=== PATIENT | female | born 1950 | race Caucasian/White ===

== ENCOUNTER 2019-11-23 22:26 | Emergency (ER) | payer MEDICARE, SELFPAY ==
[2019-11-23 22:34] VITALS: BP 186/110; PULSE 88; RESP 18; TEMP 36.7; O2SAT 98; BMI 27.0
[2019-11-24] VITALS (7 sets, daily range): BP systolic 118–178; BP diastolic 89–125; PULSE 78–107; RESP 17–24; O2SAT 93–97
--- NOTE | 2019-11-24 00:14 | ED_ITS ---
Entered by Chaparrita Ferrell, acting as scribe for Srikanth Sheldon DO Nov 23, 2019 22:26 HPI - Abdominal Pain General: Chief Complaint: Abdominal Pain Stated Complaint: sob Time Seen by Provider: 11/24/19 00:15 Source: patient Mode of arrival: ambulatory Limitations: no limitations History of Present Illness: HPI narrative: 69 yo f came to the er p[facility] for abd pain. Onset was today. Pt states that she woke up this morning with her stomach hurting. Pt states that she took her usual meds and then it got worse. Pt has had some diarrhea, nausea and vomiting. MD elicited complaint: abdominal pain Location: RLQ and LLQ Associated Symptoms: Reports diarrhea, nausea and vomiting; Denies chills, dysuria, fever(s), hematochezia, hematuria and melena Review of Systems Const: Denies: fever or chills Eyes: Denies: change in vision or blurry vision ENMT: Denies: painful swallowing, Change in hearing, nose bleeds, post nasal drip or facial/sinus pain Card: Denies: chest pain, palpitations, irregular heart rhythm, edema, swelling of feet/ankles, shortness of breath on exertion or shortness of breath when lying down Resp: Denies: shortness of breath, productive cough, non-productive cough or wheezing GI: Reports: nausea, vomiting and diarrhea; Denies: blood in stool or black tarry stool : Denies: painful urination or blood in urine Musc: Denies: neck pain, back pain, redness or joint warmth Skin/Breast: Denies: rash, itching or redness Neuro: Denies: headache, dizziness, vertigo, confusion or seizure-like activity Psych: Denies: anxiety, visual hallucinations or auditory hallucinations PFSH ED PFSH: Statuses (acute, chronic, etc) shown below reflect problem list status as previously entered and may not be historically accurate Family History Mother Diabetes Father Heart disease Social History Smoking and tobacco status: former smoker Alcohol intake: current Lives independently: Yes Household members: spouse Marital status: Current occupational status: retired Physical Exam Const: COMMON NORMALS: alert GENERAL APPEARANCE: well developed ORIENTATION/CONSCIOUSNESS: Yes awake, Yes oriented to person, Yes oriented to place and Yes oriented to time HENMT: COMMON NORMALS: normocephalic, external ears normal and external nose normal; oral mucous membranes not moist HEAD & SCALP: normocephalic; no scalp tenderness FACE & SINUS: normal facial exam NOSE: external nose normal and no nasal discharge EXTERNAL EAR: Yes external ears normal MOUTH: tongue normal TEETH & GINGIVA: no abnormal tooth and associated gingiva THROAT: posterior oropharynx normal; no peritonsillar mass Eye: COMMON NORMALS: PERRL, EOMs intact bilaterally and conjunctivae normal EYELID: eyelids normal CONJUNCTIVA: Yes conjunctivae normal PUPIL: Yes PERRL Neck/C-Spine: COMMON NORMALS: full ROM GENERAL: No anterior neck swelling and No tracheal deviation CERVICAL SPINE: Yes normal cervical lordosis, No cervical spine tenderness, No step off deformity, No paracervical muscle tenderness and No paracervical muscle spasm Chest: COMMONS NORMALS: inspection of chest normal CHEST: Yes symmetrical chest wall rise and No tenderness Resp: COMMON NORMALS: clear to auscultation bilaterally EFFORT & INSPECTION: No tachypneic, No respiratory distress, No retractions, No uses accessory muscles and No tracheal deviation AUSCULTATION: clear to auscultation bilaterally, no rhonchi, no wheezes and lung sounds not diminished Cardio: COMMON NORMALS: regular rate and regular rhythm RATE: regular rate RHYTHM: regular rhythm HEART SOUNDS: no murmurs PERIPHERAL PULSES: radial pulses present GI: INSPECTION: No abdominal distension AUSCULTATION: No hyperactive bowel sounds and No hypoactive bowel sounds PALPATION: Yes tender, Yes guarding and No rigid PERCUSSION: no dullness to percussion and no tympanic to percussion : COMMON NORMALS: Yes no CVA tenderness BLADDER/KIDNEY EXAM: Yes no CVA tenderness Back/Pelvis: COMMON NORMALS: no CVA tenderness PELVIS: Yes no pain with anterior-posterior compression and Yes no pain with lateral compression Neuro: SENSORIUM/ORIENTATION: Yes alert, Yes oriented to person, Yes oriented to place and Yes oriented to time Psych: COMMON NORMALS: mental status grossly normal and speech normal SPEECH: Yes normal speech Skin: COMMON NORMALS: no rashes or lesions noted GENERAL SKIN EXAM: no rashes or lesions noted Course Vital Signs: Vital signs: Vital Signs Temperature 98.0 F 11/23/19 22:34 Pulse Rate 107 H 11/24/19 02:16 Respiratory Rate 19 H 11/24/19 02:45 Blood Pressure 178/116 11/24/19 02:16 Pulse Oximetry 96 11/24/19 02:16 MDM - Abdominal Pain Lab Data: Labs: Lab Results 11/24/19 11/24/19 11/24/19 Range/Units 00:33 00:33 02:15 WBC 17.0 H (4.0-10.0) 10^3/ uL RBC 4.70 (4.1-5.3) 10^6/u L Hgb 13.2 (11.5-15.3) g/dL Hct 39.7 (37.0-47.0) % MCV 84.5 (81-99) fL MCH 28.1 (28.0-34.0) pg MCHC 33.2 (30.0-36.0) g/dL RDW 14.6 (12.1-15.1) % Plt Count 421 H (130-400) 10^3/c mm MPV 9.7 (7.4-10.4) fL Neut % (Auto) 82.8 % Lymph % (Auto) 13.6 % [place] % (Auto) 3.0 % Eos % (Auto) 0.0 % Baso % (Auto) 0.2 % Neut # (Auto) 14.1 H (1.8-7.7) 10^3/u L Lymph # (Auto) 2.3 (0.8-4.8) 10^3/u L [place] # (Auto) 0.5 (0.2-0.9) 10^3/u L Eos # (Auto) 0.0 (0.0-0.8) 10^3/u L Baso # (Auto) 0.0 (0.0-0.1) 10^3/u L Nucleated RBC % (a uto) 0 % Nucleated RBCs # 0.0 /100WBC Sodium 137 (136-145) mmol/L Potassium 3.4 L (3.5-5.1) mmol/L Chloride 99 (98-107) mmol/L Carbon Dioxide 23 (22-29) mmol/L Anion Gap 18.4 (5-19) BUN 12 (8-23) mg/dL Creatinine 0.8 (0.5-0.9) mg/dL GFR Calculation 71.5 L (90-130) mL/min Glucose 186 H (74-106) mg/dL Calcium 10.6 H (8.8-10.2) mg/Dl Total Bilirubin 0.5 (0.15-1.2) mg/dL AST 14 (0-32) U/L ALT 6 (0-33) U/L Alkaline Phosphata se 102 (35-105) IU/L C-Reactive Protein 2.8 (0.0-4.9) mg/L Total Protein 7.9 (6.6-8.7) g/dL Albumin 4.6 (3.5-5.2) g/dL Globulin 3.3 (1.3-4.6) g/dL Urine Color Yellow (Yellow) Urine Appearance Hazy A (CLEAR) Urine pH 9 H (5-7) Ur Specific Gravit y 1.010 (1.005-1.030) Urine Protein 1+ H (Negative) Urine Glucose (UA) Trace H (Normal) Urine Ketones 1+ H (Negative) Urine Occult Blood 2+ H (Negative) Urine Nitrate Negative (Negative) Urine Bilirubin Neg (NEGATIVE) Prot Sulfosalicyli c Acd Trace Urine Urobilinogen Norm (Negative) mg/dL Ur Leukocyte Ami ase Negative (Negative) Urine RBC 5-10 H (0-2) /hpf Urine WBC None (0-5) /hpf Ur Squamous Epith Cells 5-10 H (0-5) Urine Bacteria 1+ H (NONE) Discharge Plan Discharge Patient Disposition: Home, Self-Care Clinical Impression: Abdominal pain Qualifiers: Abdominal location: left upper quadrant Qualified Code(s): R10.12 - Left upper quadrant pain Condition: Stable Prescriptions: New Zofran 4 mg tablet 4 mg PO Q6H PRN (Reason: nausea and vomiting) Qty: 10 RF: 0 No Action sucralfate [Carafate] 1 gram tablet 1 gm PO QID RF: 0 lisinopril 10 mg tablet 10 mg PO DAILY RF: 0 methimazole 10 mg tablet 10 mg PO DAILY RF: 0 atenolol 50 mg tablet 50 mg PO DAILY RF: 0 sumatriptan succinate [Imitrex] 50 mg tablet 50 mg PO ONCE RF: 0 polyethylene glycol 3350 [Miralax] 17 gram powder in packet 17 gm PO DAILY RF: 0 clopidogrel 75 mg tablet 75 mg PO ONCE RF: 0 pantoprazole [Protonix] 40 mg tablet,delayed release (DR/EC) 40 mg PO QAM RF: 0 ondansetron HCl 4 mg tablet 4 mg PO Q6H PRN (Reason: nausea and vomiting) RF: 0 hydrocodone-acetaminophen 10-325 mg tablet 1 tab PO ONCE PRNRF: 0 aspirin [Adult Low Dose Aspirin] 81 mg tablet,delayed release (DR/EC) 81 mg PO DAILY RF: 0 cyanocobalamin (vitamin B-12) 1,000 mcg capsule 1,000 mcg PO ONCE RF: 0 Probiotic (S.boulardii) 250 mg capsule 250 mg PO BID RF: 0 Discharge Orders: Discharge Order (Routine); Ordered 11/24/19 Ordered By: Srikanth Sheldon Referrals: Maria Gomez APN [Primary Care Provider] - Discharge Diet: Advance as tolerated Discharge Activity: Resume usual activity Patient Instructions: Abdominal Pain (ED) Activity Restrictions/Additional Instructions: Return for fever greater than 100, vomiting liquids or medications, other concerning symptoms. Coding Level of Care Code ED Plant Supervisor for Chg Fwd The documentation recorded by the Ghassan berry Stephanie Lyn, accurately reflects the service I personally performed and the decisions made by Pito kahn Jeremy John, DO Nov 23, 2019 22:26
--- NOTE | 2019-11-24 00:21 | CTR_ITS ---
PROCEDURE INFORMATION: Exam: CT Abdomen And Pelvis With Contrast Exam date and time: 11/24/2019 12:38 AM Age: 69 years old Clinical indication: Abdominal pain; Generalized; Prior surgery; Surgery date: 6+ months; Surgery type: Splenectomy; Additional info: Abd pain TECHNIQUE: Imaging protocol: Computed tomography of the abdomen and pelvis with intravenous contrast. Total DLP: 566.69 mGy-cm Radiation optimization: All CT scans at this facility use at least one of these dose optimization techniques: automated exposure control; mA and/or kV adjustment per patient size (includes targeted exams where dose is matched to clinical indication); or iterative reconstruction. Contrast material: OMNI 300; Contrast volume: 95 ml; Contrast route: IV; COMPARISON: CT Abdomen/Pelvis w IV* [id number] 10/17/2019 10:42 PM FINDINGS: Lungs: Lung bases are clear. Mediastinum: There is a small sliding-type hiatal hernia. Liver: The liver is normal. Gallbladder and bile ducts: The gallbladder is normal. There is no biliary dilation. Pancreas: The pancreas is unremarkable. 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 Adrenals: The adrenal glands are unremarkable. Kidneys and ureters: The kidneys are unremarkable. No hydronephrosis or stones. No ureteral dilation. Stomach and bowel: The stomach is unremarkable. The small bowel is nondilated. There is no sign of inflammation. The colon is diffusely decompressed. There is mild diverticulosis of the sigmoid without evidence of diverticulitis. Appendix: The appendix is normal. Intraperitoneal space: There is no free air or significant intraperitoneal free fluid. Vasculature: There is moderate aortic atherosclerotic disease. There is no aortic dissection or aneurysm. Lymph nodes: There is no lymphadenopathy in the retroperitoneum, mesentery, pelvis or inguinal regions. Bladder: The urinary bladder is unremarkable. Reproductive: The uterus is unremarkable. There is no adnexal mass or large cyst. Bones/joints: There is moderate degenerative disease in the lumbar spine. The pelvis and hips are unremarkable. Soft tissues: There is a small multifocal fat containing ventral hernia. CT/CT abdomen pelvis w con* [id number] IMPRESSION: 1. No acute findings. 2. Incidental findings above. Radiation Dose CTDIVOL = (mGy): DLP = 566.69 (mGy-cm)
[2019-11-24 00:52] LABS: Basophils % 0.2 %; Hematocrit 39.7 % (37.0-47.0); Hemoglobin 13.2 g/dL (11.5-15.3); Lymphocytes # 2.3 10^3/uL (0.8-4.8); Lymphocytes % 13.6 %; Mean Corpuscular HGB Conc 33.2 g/dL (30.0-36.0); Mean Corpuscular Hemoglobin 28.1 pg (28.0-34.0); Mean Corpuscular Volume 84.5 fL (81-99); Mean Platelet Volume 9.7 fL (7.4-10.4); Monocytes # 0.5 10^3/uL (0.2-0.9); Neutrophils # 14.1 10^3/uL (1.8-7.7); Neutrophils % 82.8 %; Nucleated Red Blood Cells % 0 %; Platelet Count 421 10^3/cmm (130-400); Red Cell Distribution Width 14.6 % (12.1-15.1)
[2019-11-24 01:00] LABS: Alanine Aminotransferase 6 U/L (0-33); Albumin Level 4.6 g/dL (3.5-5.2); Alkaline Phosphatase 102 IU/L (35-105); Anion Gap 18.4 (5-19); Aspartate Amino Transferase 14 U/L (0-32); Blood Urea Nitrogen 12 mg/dL (8-23); C Reactive Protein 2.8 mg/L (0.0-4.9); Calcium 10.6 mg/Dl (8.8-10.2); Carbon Dioxide 23 mmol/L (22-29); Chloride 99 mmol/L (98-107); Globulin 3.3 g/dL (1.3-4.6); Glomerular Filtration Rate 71.5 mL/min (90-130); Glucose 186 mg/dL (74-106); Potassium 3.4 mmol/L (3.5-5.1); Sodium 137 mmol/L (136-145); Total Bilirubin 0.5 mg/dL (0.15-1.2); Total Protein 7.9 g/dL (6.6-8.7)
[2019-11-24] MEDS: ondansetron 2 mg/ML SDV 2 mL 4 MG IVP (01:23)
[2019-11-24 02:45] LABS: Bilirubin Urine Neg (NEGATIVE); Blood Urine 2+ (Negative); Glucose Urine UA Trace (Normal); Ketones Urine 1+ (Negative); Leukocyte Esterase Urine Negative (Negative); Nitrate Urine Negative (Negative); Protein Urine 1+ (Negative); Urine Appearance Hazy (CLEAR); Urine Color Yellow (Yellow); Urobilinogen Urine Norm (Negative); pH Urine 9 (5-7)
[2019-11-24] MEDS: morphine 4 mg/mL SDV 1 mL IVP (02:45)
[2019-11-24 02:46] LABS: Sulfosalicylic Acid Urine Trace
[2019-11-24 02:50] LABS: Bacteria Urine 1+
--- NOTE | 2019-11-24 06:31 | PC.NURSE ---
Contacted after multiple attempts to reach him on home phone. 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 home phone number to contact is [phone].
--- NOTE | 2019-11-24 06:54 | PC.NURSE ---
Report received from RENUKA Bernal
== END 2019-11-24 07:10 | disposition home or self-care (01) ==
PROVIDERS: Emergency Provider Emergency Medicine; Family Provider Nurse Practitioner Family; PCP Nurse Practitioner Family
DX: R10.12 Left upper quadrant pain (principal); Z87.891 Personal history of nicotine dependence
CPT/HCPCS: 74177; 80053; 81001; 85025; 86140; 96365; 96366; 96374; 99282; J0131; J2270; J2405; Q9967

== ENCOUNTER 2019-12-30 04:53 | Inpatient (IN) | payer MEDICARE, SELFPAY ==
[2019-12-30] VITALS (16 sets, daily range): BP systolic 89–152; BP diastolic 48–84; PULSE 50–91; RESP 14–20; TEMP 36.4–37.2; O2SAT 82–100; BMI 27.3
--- NOTE | 2019-12-30 05:10 | PC.NURSE ---
patient states her abdominal pain started monday and has become progressively worse. Patient states she has been vomiting since monday. Patient states her pain is centrally located in her abdomen.
--- NOTE | 2019-12-30 05:13 | W.ED.ABDPA2 ---
Documented by User: Srikanth Sheldon DO 12/30/19 06:51 HPI - Abdominal Pain General: Chief Complaint: Abdominal Pain Stated Complaint: ABD PAIN Time Seen by Provider: 12/30/19 05:06 History of Present Illness: MD elicited complaint: abdominal pain Onset (ago): day(s) Pain Consistency: intermittent Location: Epigastric Severity: similar to previous episodes Quality: stabbing and sharp Radiation: none Exacerbating factors: vomiting Relieving factors: nothing Associated Symptoms: Reports chills, nausea and vomiting; Denies dysuria, fever(s) and hematemesis Review of Systems Const: Reports: chills; Denies: fever Eyes: Denies: change in vision ENMT: Reports: dry mouth; Denies: throat pain Card: Denies: chest pain, palpitations or edema Resp: Denies: shortness of breath, productive cough or wheezing GI: Reports: nausea and vomiting; Denies: vomiting blood : Denies: difficulty urinating or painful urination Neuro: Reports: dizziness; Denies: headache Psych: Reports: anxiety PFSH ED PFSH: Statuses (acute, chronic, etc) shown below reflect problem list status as previously entered and may not be historically accurate Medical History Anxiety disorder (Acute) Basilar artery aneurysm (Acute) Constipation (Acute) Dyslipidemia (Acute) Elevated glucose (Acute) Gastritis (Acute) Hemorrhoid (Acute) Hypertension (Acute) Continue on atenolol, hold lisinopril until seen by primary care provider Hyperthyroidism (Acute) Continue on home methimazole Insomnia (Acute) Migraine (Acute) Plantar fasciitis (Acute) Statin intolerance (Acute) Surgical History H/O section (Acute) H/O splenectomy (Acute) 2007 History of esophagogastroduodenoscopy (EGD) (Acute) 2019 -gastritis S/P coil embolization of cerebral aneurysm (Acute) 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, stent subsequently removed Status post colonoscopy (Acute) 2018: Normal repeat in 10 years Family History Mother Diabetes Father Heart disease Denies family history of Anesthesia complication Bleeding disorder Social History Smoking and tobacco status: former smoker Alcohol intake: current Alcohol intake frequency: holidays/special occasions only Lives independently: Yes Household members: spouse Marital status: Current occupational status: retired Physical Exam Const: COMMON NORMALS: alert GENERAL APPEARANCE: in distress and anxious ORIENTATION/CONSCIOUSNESS: Yes oriented to person, Yes oriented to place and Yes oriented to time HENMT: COMMON NORMALS: external nose normal FACE & SINUS: normal facial exam NOSE: external nose normal MOUTH: oral and palatal mucosa normal THROAT: posterior oropharynx abnormal erythema Eye: COMMON NORMALS: PERRL and EOMs intact bilaterally PUPIL: Yes PERRL Chest: COMMONS NORMALS: inspection of chest normal Resp: COMMON NORMALS: normal respiratory effort, no retractions, no use of accessory muscles and clear to auscultation bilaterally AUSCULTATION: clear to auscultation bilaterally Cardio: COMMON NORMALS: regular rhythm RHYTHM: regular rhythm and abnormal rhythm HEART SOUNDS: no murmurs PERIPHERAL PULSES: radial pulses present GI: INSPECTION: Yes normal to inspection AUSCULTATION: Yes normoactive bowel sounds PALPATION: Yes tender Details: LUQ and RUQ and Yes guarding Neuro: SENSORIUM/ORIENTATION: Yes alert, Yes oriented to person, Yes oriented to place and Yes oriented to time SPEECH: speech normal Course Vital Signs: Vital signs: Vital Signs Temperature 99.0 F 12/31/19 15:45 Pulse Rate 65 12/31/19 15:45 Respiratory Rate 18 12/31/19 15:45 Blood Pressure 162/83 12/31/19 15:45 Pulse Oximetry 94 12/31/19 15:45 MDM - Abdominal Pain MDM Narrative: Medical decision making narrative: 69-year-old female here not infrequently. She presents with epigastric and left upper quadrant pain and vomiting. She has been vomiting she says for the last few days. No fever, no diarrhea. Improved after medication here. She has a leukocytosis of 19 without significant left shift. Her potassium is 3.1. Her BUN 27 creatinine 1.3. Because of significant elevation white blood cell count, despite the fact this is more chronic problem, we will have to CT her belly. CT is pending at this point. Lab Data: Labs: Lab Results 12/30/19 12/30/19 12/30/19 Range/Units 05:38 05:38 05:38 WBC 18.8 H (4.0-10.0) 10^3/ uL RBC 5.33 H (4.1-5.3) 10^6/u L Hgb 14.5 (11.5-15.3) g/dL Hct 42.9 (37.0-47.0) % MCV 80.5 L (81-99) fL MCH 27.2 L (28.0-34.0) pg MCHC 33.8 (30.0-36.0) g/dL RDW 15.3 H (12.1-15.1) % Plt Count 510 H (130-400) 10^3/c mm MPV 9.6 (7.4-10.4) fL Neut % (Auto) 71.5 % Lymph % (Auto) 22.6 % [place] % (Auto) 5.2 % Eos % (Auto) 0.0 % Baso % (Auto) 0.2 % Neut # (Auto) 13.5 H (1.8-7.7) 10^3/u L Lymph # (Auto) 4.2 (0.8-4.8) 10^3/u L [place] # (Auto) 1.0 H (0.2-0.9) 10^3/u L Eos # (Auto) 0.0 (0.0-0.8) 10^3/u L Baso # (Auto) 0.0 (0.0-0.1) 10^3/u L Nucleated RBC % (a uto) 0 % Nucleated RBCs # 0.0 /100WBC Sodium 135 L (136-145) mmol/L Potassium 3.1 L (3.5-5.1) mmol/L Chloride 87 L (98-107) mmol/L Carbon Dioxide 25 (22-29) mmol/L Anion Gap 26.1 H (5-19) BUN 27 H (8-23) mg/dL Creatinine 1.3 H (0.5-0.9) mg/dL GFR Calculation 40.9 L (90-130) mL/min Glucose 160 H (65-115) mg/dL Estimat Average Gl ucose Hemoglobin A1c (4.0-6.0) % Lactate (0.5-2.2) mmol/L Calcium 10.6 H (8.5-10.5) mg/dL Total Bilirubin 1.0 (0.15-1.2) mg/dL AST 22 (0-32) U/L ALT 10 (0-33) U/L Alkaline Phosphata se 94 (35-105) IU/L C-Reactive Protein 2.3 (0.0-4.9) mg/L Total Protein 7.6 (6.6-8.7) g/dL Albumin 4.3 (3.5-5.2) g/dL Globulin 3.3 (1.3-4.6) g/dL Lipase 19 (13-60) U/L TSH (0.27-4.20) uIU/ mL Urine Color Yellow (Yellow) Urine Appearance Cloudy (CLEAR) Urine pH 5 (5-7) Ur Specific Gravit y 1.020 (1.005-1.030) Urine Protein 2+ H (Negative) Urine Glucose (UA) Norm (Normal) Urine Ketones 1+ H (Negative) Urine Occult Blood 2+ H (Negative) Urine Nitrate Negative (Negative) Urine Bilirubin 1+ H (NEGATIVE) Urine Urobilinogen Norm (Negative) mg/dL Ur Leukocyte Ami ase Negative (Negative) Urine RBC 0-4 H (0-2) /hpf Urine WBC 5-10 H (0-5) /hpf Ur Squamous Epith Cells 15-25 H (0-5) Urine Bacteria 1+ H (NONE) Urine Mucus 2+ 12/30/19 12/30/19 12/30/19 Range/Units 05:38 05:38 07:18 WBC (4.0-10.0) 10^3/ uL RBC (4.1-5.3) 10^6/u L Hgb (11.5-15.3) g/dL Hct (37.0-47.0) % MCV (81-99) fL MCH (28.0-34.0) pg MCHC (30.0-36.0) g/dL RDW (12.1-15.1) % Plt Count (130-400) 10^3/c mm MPV (7.4-10.4) fL Neut % (Auto) % Lymph % (Auto) % [place] % (Auto) % Eos % (Auto) % Baso % (Auto) % Neut # (Auto) (1.8-7.7) 10^3/u L Lymph # (Auto) (0.8-4.8) 10^3/u L [place] # (Auto) (0.2-0.9) 10^3/u L Eos # (Auto) (0.0-0.8) 10^3/u L Baso # (Auto) (0.0-0.1) 10^3/u L Nucleated RBC % (a uto) % Nucleated RBCs # /100WBC Sodium (136-145) mmol/L Potassium (3.5-5.1) mmol/L Chloride (98-107) mmol/L Carbon Dioxide (22-29) mmol/L Anion Gap (5-19) BUN (8-23) mg/dL Creatinine (0.5-0.9) mg/dL GFR Calculation (90-130) mL/min Glucose (65-115) mg/dL Estimat Average Gl ucose 131 Hemoglobin A1c 6.2 H (4.0-6.0) % Lactate 1.4 (0.5-2.2) mmol/L Calcium (8.5-10.5) mg/dL Total Bilirubin (0.15-1.2) mg/dL AST (0-32) U/L ALT (0-33) U/L Alkaline Phosphata se (35-105) IU/L C-Reactive Protein (0.0-4.9) mg/L Total Protein (6.6-8.7) g/dL Albumin (3.5-5.2) g/dL Globulin (1.3-4.6) g/dL Lipase (13-60) U/L TSH 1.91 (0.27-4.20) uIU/ mL Urine Color (Yellow) Urine Appearance (CLEAR) Urine pH (5-7) Ur Specific Gravit y (1.005-1.030) Urine Protein (Negative) Urine Glucose (UA) (Normal) Urine Ketones (Negative) Urine Occult Blood (Negative) Urine Nitrate (Negative) Urine Bilirubin (NEGATIVE) Urine Urobilinogen (Negative) mg/dL Ur Leukocyte Ami ase (Negative) Urine RBC (0-2) /hpf Urine WBC (0-5) /hpf Ur Squamous Epith Cells (0-5) Urine Bacteria (NONE) Urine Mucus Discharge Plan Discharge Patient Disposition: Admitted As Inpatient Admit Provider: Bela Duggan Clinical Impression: Small bowel obstruction Condition: Stable Discharge Orders: Discharge Order (Routine); Ordered 12/31/19 Ordered By: Bela Duggan Referrals: Davy Medina MD [Physician] - (As previously scheduled please call for appointment [phone]) Discharge Diet: Advance as tolerated and GI Soft Discharge Activity: Increase activity as tolerated Patient Instructions: Laxative, Stimulant (By mouth), Hypertension, Acute Nausea and Vomiting (DC), Bowel Obstruction (DC) Additional Instructions: Follow-up with primary care provider in 3 to 5 days Started on stool softener to take twice daily Follow-up with Dr. Medina or Dr. Lin as previously scheduled or as needed Call your physician or present to the ER for any acute illness or concern Discharge Date/Time: 12/30/19 15:16 Sign Out Sign Out Data: Patient Sign Out occurred on 12/30/19 at 07:09. Patient's care was discussed, and care was transferred from Srikanth Sheldon DO to Jayden Otero DO. Sign Out Comment: Follow-up on CT findings for persistent epigastric pain and leukocytosis Last updated by Srikanth Sheldon DO at 12/30/19 06:49 Coding Level of Care Code ED Supervisor [facility] for [facility] Fwd Documented by User: Jayden Otero DO 01/02/20 05:56 HPI - Abdominal Pain General: Chief Complaint: Abdominal Pain Stated Complaint: ABD PAIN Time Seen by Provider: 12/30/19 05:06 History of Present Illness: HPI narrative: 69-year-old female presents with epigastric abdominal pain with significant nausea few episodes of vomiting no hematochezia no melena. She denies fever this is been going on and off for the last 2 to 3 days she has not eaten well over 24 hours anything she eats or drinks causes severe discomfort and nausea. Associated Symptoms: Reports bloating, GI cramping, nausea and vomiting; Denies chills, coffee ground emesis, constipation, diarrhea, dysuria, fever(s), hematochezia, hematemesis and melena Review of Systems Const: Denies: fever, chills, body aches, change in appetite, fatigue or malaise ENMT: Denies: throat pain, ear pain, nasal discharge or nasal congestion Card: Denies: chest pain, edema, shortness of breath on exertion or shortness of breath when lying down Resp: Denies: shortness of breath, productive cough or non-productive cough GI: Reports: abdominal pain, nausea, vomiting, bloating and cramping; Denies: vomiting blood, coffee grounds in vomit, diarrhea, constipation, blood in stool or black tarry stool : Denies: flank pain, difficulty urinating, painful urination, urinary frequency or urinary urgency Skin/Breast: Denies: rash or itching PFSH ED PFSH: Statuses (acute, chronic, etc) shown below reflect problem list status as previously entered and may not be historically accurate Medical History Anxiety disorder (Acute) Basilar artery aneurysm (Acute) Constipation (Acute) Dyslipidemia (Acute) Elevated glucose (Acute) Gastritis (Acute) Hemorrhoid (Acute) Hypertension (Acute) Continue on atenolol, hold lisinopril until seen by primary care provider Hyperthyroidism (Acute) Continue on home methimazole Insomnia (Acute) Migraine (Acute) Plantar fasciitis (Acute) Statin intolerance (Acute) Surgical History H/O section (Acute) H/O splenectomy (Acute) 2007 History of esophagogastroduodenoscopy (EGD) (Acute) 2019 -gastritis S/P coil embolization of cerebral aneurysm (Acute) 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, stent subsequently removed Status post colonoscopy (Acute) 2018: Normal repeat in 10 years Family History Mother Diabetes Father Heart disease Denies family history of Anesthesia complication Bleeding disorder Social History Smoking and tobacco status: former smoker Alcohol intake: current Alcohol intake frequency: holidays/special occasions only Lives independently: Yes Household members: spouse Marital status: Current occupational status: retired Physical Exam Const: COMMON NORMALS: no apparent distress GENERAL APPEARANCE: cooperative and comfortable ORIENTATION/CONSCIOUSNESS: Yes awake, Yes oriented to person, Yes oriented to place and Yes oriented to time HENMT: COMMON NORMALS: normocephalic, head/scalp atraumatic, hearing grossly normal bilaterally, external ears normal, EAC's normal, TM's normal bilaterally, nasal mucous membranes and turbinates normal, moist oral mucous membranes and oropharynx normal HEAD & SCALP: normocephalic and atraumatic NOSE: nasal mucous membranes and turbinates normal EXTERNAL EAR: Yes external ears normal EXTERNAL AUDITORY CANAL: EAC's normal TYMPANIC MEMBRANE: TM's normal bilaterally Eye: COMMON NORMALS: PERRL, EOMs intact bilaterally, conjunctivae normal and no scleral icterus CONJUNCTIVA: Yes conjunctivae normal PUPIL: Yes PERRL Neck/C-Spine: COMMON NORMALS: full ROM, no lymphadenopathy, supple and no JVD Lymph: LYMPHATIC: no lymphadenopathy noted and no lymphedema noted Resp: COMMON NORMALS: normal respiratory effort, no retractions, no use of accessory muscles and clear to auscultation bilaterally AUSCULTATION: clear to auscultation bilaterally Cardio: COMMON NORMALS: no JVD, regular rate, regular rhythm and no murmurs RATE: regular rate RHYTHM: regular rhythm GI: COMMON NORMALS: no hepatosplenomegaly AUSCULTATION: Yes normoactive bowel sounds PALPATION: Yes tender (Epigastrium), No guarding and Yes no hepatosplenomegaly Extremity: COMMON NORMALS: normal to inspection, normal capillary refill, no clubbing, cyanosis or edema, no calf tenderness and no pedal edema Neuro: SENSORIUM/ORIENTATION: Yes oriented to person, Yes oriented to place and Yes oriented to time Skin: COMMON NORMALS: no rashes or lesions noted GENERAL SKIN EXAM: no rashes or lesions noted Course ED course: CT shows proximal small bowel obstruction with transition in the ileum. Will place NG tube discussed with hospitalist will admit. Consult general surgery Vital Signs: Vital signs: Vital Signs Temperature 99.0 F 12/31/19 15:45 Pulse Rate 65 12/31/19 15:45 Respiratory Rate 18 12/31/19 15:45 Blood Pressure 162/83 12/31/19 15:45 Pulse Oximetry 94 12/31/19 15:45 MDM - Abdominal Pain Lab Data: Labs: Lab Results 12/30/19 12/30/19 12/30/19 Range/Units 05:38 05:38 05:38 WBC 18.8 H (4.0-10.0) 10^3/ uL RBC 5.33 H (4.1-5.3) 10^6/u L Hgb 14.5 (11.5-15.3) g/dL Hct 42.9 (37.0-47.0) % MCV 80.5 L (81-99) fL MCH 27.2 L (28.0-34.0) pg MCHC 33.8 (30.0-36.0) g/dL RDW 15.3 H (12.1-15.1) % Plt Count 510 H (130-400) 10^3/c mm MPV 9.6 (7.4-10.4) fL Neut % (Auto) 71.5 % Lymph % (Auto) 22.6 % [place] % (Auto) 5.2 % Eos % (Auto) 0.0 % Baso % (Auto) 0.2 % Neut # (Auto) 13.5 H (1.8-7.7) 10^3/u L Lymph # (Auto) 4.2 (0.8-4.8) 10^3/u L [place] # (Auto) 1.0 H (0.2-0.9) 10^3/u L Eos # (Auto) 0.0 (0.0-0.8) 10^3/u L Baso # (Auto) 0.0 (0.0-0.1) 10^3/u L Nucleated RBC % (a uto) 0 % Nucleated RBCs # 0.0 /100WBC Sodium 135 L (136-145) mmol/L Potassium 3.1 L (3.5-5.1) mmol/L Chloride 87 L (98-107) mmol/L Carbon Dioxide 25 (22-29) mmol/L Anion Gap 26.1 H (5-19) BUN 27 H (8-23) mg/dL Creatinine 1.3 H (0.5-0.9) mg/dL GFR Calculation 40.9 L (90-130) mL/min Glucose 160 H (65-115) mg/dL Estimat Average Gl ucose Hemoglobin A1c (4.0-6.0) % Lactate (0.5-2.2) mmol/L Calcium 10.6 H (8.5-10.5) mg/dL Total Bilirubin 1.0 (0.15-1.2) mg/dL AST 22 (0-32) U/L ALT 10 (0-33) U/L Alkaline Phosphata se 94 (35-105) IU/L C-Reactive Protein 2.3 (0.0-4.9) mg/L Total Protein 7.6 (6.6-8.7) g/dL Albumin 4.3 (3.5-5.2) g/dL Globulin 3.3 (1.3-4.6) g/dL Lipase 19 (13-60) U/L TSH (0.27-4.20) uIU/ mL Urine Color Yellow (Yellow) Urine Appearance Cloudy (CLEAR) Urine pH 5 (5-7) Ur Specific Gravit y 1.020 (1.005-1.030) Urine Protein 2+ H (Negative) Urine Glucose (UA) Norm (Normal) Urine Ketones 1+ H (Negative) Urine Occult Blood 2+ H (Negative) Urine Nitrate Negative (Negative) Urine Bilirubin 1+ H (NEGATIVE) Urine Urobilinogen Norm (Negative) mg/dL Ur Leukocyte Ami ase Negative (Negative) Urine RBC 0-4 H (0-2) /hpf Urine WBC 5-10 H (0-5) /hpf Ur Squamous Epith Cells 15-25 H (0-5) Urine Bacteria 1+ H (NONE) Urine Mucus 2+ 12/30/19 12/30/19 12/30/19 Range/Units 05:38 05:38 07:18 WBC (4.0-10.0) 10^3/ uL RBC (4.1-5.3) 10^6/u L Hgb (11.5-15.3) g/dL Hct (37.0-47.0) % MCV (81-99) fL MCH (28.0-34.0) pg MCHC (30.0-36.0) g/dL RDW (12.1-15.1) % Plt Count (130-400) 10^3/c mm MPV (7.4-10.4) fL Neut % (Auto) % Lymph % (Auto) % [place] % (Auto) % Eos % (Auto) % Baso % (Auto) % Neut # (Auto) (1.8-7.7) 10^3/u L Lymph # (Auto) (0.8-4.8) 10^3/u L [place] # (Auto) (0.2-0.9) 10^3/u L Eos # (Auto) (0.0-0.8) 10^3/u L Baso # (Auto) (0.0-0.1) 10^3/u L Nucleated RBC % (a uto) % Nucleated RBCs # /100WBC Sodium (136-145) mmol/L Potassium (3.5-5.1) mmol/L Chloride (98-107) mmol/L Carbon Dioxide (22-29) mmol/L Anion Gap (5-19) BUN (8-23) mg/dL Creatinine (0.5-0.9) mg/dL GFR Calculation (90-130) mL/min Glucose (65-115) mg/dL Estimat Average Gl ucose 131 Hemoglobin A1c 6.2 H (4.0-6.0) % Lactate 1.4 (0.5-2.2) mmol/L Calcium (8.5-10.5) mg/dL Total Bilirubin (0.15-1.2) mg/dL AST (0-32) U/L ALT (0-33) U/L Alkaline Phosphata se (35-105) IU/L C-Reactive Protein (0.0-4.9) mg/L Total Protein (6.6-8.7) g/dL Albumin (3.5-5.2) g/dL Globulin (1.3-4.6) g/dL Lipase (13-60) U/L TSH 1.91 (0.27-4.20) uIU/ mL Urine Color (Yellow) Urine Appearance (CLEAR) Urine pH (5-7) Ur Specific Gravit y (1.005-1.030) Urine Protein (Negative) Urine Glucose (UA) (Normal) Urine Ketones (Negative) Urine Occult Blood (Negative) Urine Nitrate (Negative) Urine Bilirubin (NEGATIVE) Urine Urobilinogen (Negative) mg/dL Ur Leukocyte Ami ase (Negative) Urine RBC (0-2) /hpf Urine WBC (0-5) /hpf Ur Squamous Epith Cells (0-5) Urine Bacteria (NONE) Urine Mucus Discharge Plan Discharge Patient Disposition: Admitted As Inpatient Admit Provider: Bela Duggan Clinical Impression: Small bowel obstruction Condition: Stable Discharge Orders: Discharge Order (Routine); Ordered 12/31/19 Ordered By: Bela Duggan Referrals: Davy Medina MD [Physician] - (As previously scheduled please call for appointment [phone]) Discharge Diet: Advance as tolerated and GI Soft Discharge Activity: Increase activity as tolerated Patient Instructions: Laxative, Stimulant (By mouth), Hypertension, Acute Nausea and Vomiting (DC), Bowel Obstruction (DC) Additional Instructions: Follow-up with primary care provider in 3 to 5 days Started on stool softener to take twice daily Follow-up with Dr. Medina or Dr. Lin as previously scheduled or as needed Call your physician or present to the ER for any acute illness or concern Discharge Date/Time: 12/30/19 15:16 Sign Out Sign Out Data: Patient Sign Out occurred on 12/30/19 at 07:09. Patient's care was discussed, and care was transferred from Srikanth Sheldon DO to Jayden Otreo DO. Sign Out Comment: Follow-up on CT findings for persistent epigastric pain and leukocytosis Last updated by Srikanth Sheldon DO at 12/30/19 06:49 Coding Level of Care Code ED Supervisor [facility] for Judy Mcgrath
[2019-12-30] MEDS: morphine 4 mg/mL SDV 1 mL IVP (05:30)
[2019-12-30] MEDS: haloperidol inj 5 mg/mL INJ 1 mL 3 MG IVP (05:31)
[2019-12-30] MEDS: ondansetron 2 mg/ML SDV 2 mL 4 MG IVP (05:31)
[2019-12-30] MEDS: sodium chloride 0.9% 1,000 ML 999 ML IV (05:33)
--- NOTE | 2019-12-30 05:44 | PC.NURSE ---
patient placed on 2 liters of oxygen after medication administration for optimal oxygenation.
[2019-12-30 05:48] LABS: Basophils % 0.2 %; Hematocrit 42.9 % (37.0-47.0); Hemoglobin 14.5 g/dL (11.5-15.3); Lymphocytes # 4.2 10^3/uL (0.8-4.8); Lymphocytes % 22.6 %; Mean Corpuscular HGB Conc 33.8 g/dL (30.0-36.0); Mean Corpuscular Hemoglobin 27.2 pg (28.0-34.0); Mean Corpuscular Volume 80.5 fL (81-99); Mean Platelet Volume 9.6 fL (7.4-10.4); Monocytes % 5.2 %; Neutrophils # 13.5 10^3/uL (1.8-7.7); Neutrophils % 71.5 %; Nucleated Red Blood Cells % 0 %; Platelet Count 510 10^3/cmm (130-400); Red Blood Count 5.33 10^6/uL (4.1-5.3); Red Cell Distribution Width 15.3 % (12.1-15.1); White Blood Count 18.8 10^3/uL (4.0-10.0)
--- NOTE | 2019-12-30 05:50 | PC.NURSE ---
patients oxygen titrated up to 4 liters for optimal oxygenation
--- NOTE | 2019-12-30 05:50 | PC.NURSE ---
patients oxygen titrated up to 5 liters for optimal oxygenation
--- NOTE | 2019-12-30 05:53 | CTR_ITS ---
PROCEDURE INFORMATION: Exam: CT Abdomen And Pelvis With Contrast Exam date and time: 12/30/2019 6:02 AM Age: 69 years old Clinical indication: Nausea and vomiting; Abdominal pain; Localized; Prior surgery; Surgery type: Splenectomy; Patient HX: Upper abd pain with n/v. TECHNIQUE: Imaging protocol: Computed tomography of the abdomen and pelvis with intravenous contrast. Total DLP: 591.98 mGy-cm Radiation optimization: All CT scans at this facility use at least one of these dose optimization techniques: automated exposure control; mA and/or kV adjustment per patient size (includes targeted exams where dose is matched to clinical indication); or iterative reconstruction. Contrast material: VISI 320; Contrast volume: 95 ml; Contrast route: 20G; COMPARISON: CT abdomen pelvis w con* [id number] 11/24/2019 1:35 AM FINDINGS: Lungs: There is bilateral dependent atelectasis. Liver: The liver is homogeneous and is not enlarged. Gallbladder and bile ducts: No calcified gallstones, gallbladder wall thickening, or pericholecystic inflammation. No biliary ductal dilation. Pancreas: No pancreatic mass. No peripancreatic inflammation. No pancreatic ductal dilation. Spleen: Prior splenectomy. Adrenals: No adrenal mass. Kidneys and ureters: No hydronephrosis. No nephrolithiasis. There is a simple appearing 7 mm cyst in the inferior pole the right kidney. Stomach and bowel: There is dilated, fluid-filled duodenum and proximal jejunum with decompression of the more distal jejunum and particularly the ileum. The colon is not distended. There is diverticulosis without diverticulitis. No bowel wall thickening. Appendix: The appendix has a normal caliber with no wall thickening. No periappendiceal stranding. Intraperitoneal space: No ascites or pneumoperitoneum. Vasculature: No abdominal aortic aneurysm. No iliac or common femoral artery aneurysm. Lymph nodes: No pathologically enlarged lymph nodes. Bladder: No urinary bladder calculus or wall thickening. Reproductive: Unremarkable as visualized. Bones/joints: There is multilevel disc degeneration and facet arthropathy in the lumbar spine. Soft tissues: Ventral hernias containing only fat. CT/CT abdomen pelvis w con* [id number] IMPRESSION: Proximal small bowel obstruction. COMMENT: Consistent with the [employer]'s Incidental Findings Committee white paper (J Am Mika Radiol 2018): Any incidental cystic renal lesion classified in this report as too small to characterize or simple appearing is likely a benign cyst. No follow-up imaging is recommended for these lesions per consensus recommendations based on imaging criteria. Radiation Dose CTDIVOL = (mGy): DLP = 591.98 (mGy-cm)
[2019-12-30 05:57] LABS: Add Urine Microscopic? YES; Bacteria Urine 1+; Bilirubin Urine 1+ (NEGATIVE); Blood Urine 2+ (Negative); Glucose Urine UA Norm (Normal); Ketones Urine 1+ (Negative); Leukocyte Esterase Urine Negative (Negative); Mucus Urine 2+; Nitrate Urine Negative (Negative); Protein Urine 2+ (Negative); RBC Urine 0-4 /hpf (0-2); Squamous Epithelial Cell Urine 15-25 (0-5); Urine Appearance Cloudy (CLEAR); Urine Color Yellow (Yellow); Urobilinogen Urine Norm (Negative); pH Urine 5 (5-7)
[2019-12-30 06:00] LABS: Alanine Aminotransferase 10 U/L (0-33); Albumin Level 4.3 g/dL (3.5-5.2); Alkaline Phosphatase 94 IU/L (35-105); Anion Gap 26.1 (5-19); Aspartate Amino Transferase 22 U/L (0-32); Blood Urea Nitrogen 27 mg/dL (8-23); Calcium 10.6 mg/dL (8.5-10.5); Carbon Dioxide 25 mmol/L (22-29); Chloride 87 mmol/L (98-107); Globulin 3.3 g/dL (1.3-4.6); Glomerular Filtration Rate 40.9 mL/min (90-130); Glucose 160 mg/dL (65-115); Lipase 19 U/L (13-60); Potassium 3.1 mmol/L (3.5-5.1); Sodium 135 mmol/L (136-145); Total Protein 7.6 g/dL (6.6-8.7)
--- NOTE | 2019-12-30 06:06 | PC.NURSE ---
patient sleeping in bed with lights off
[2019-12-30 06:19] LABS: C Reactive Protein 2.3 mg/L (0.0-4.9)
[2019-12-30] MEDS: potassium chloride oral liq 20 mEq/15 mL UDC PO (06:30)
[2019-12-30] MEDS: iodixanol 320 mg/mL 100mL Btl IV (06:46)
[2019-12-30] MEDS: potassium chloride oral liq 20 mEq/15 mL UDC 40 MEQ PO (07:10)
[2019-12-30 07:43] LABS: Lactate (Lactic Acid level) 1.4 mmol/L (0.5-2.2)
--- NOTE | 2019-12-30 08:12 | P.HP_ITS ---
Providers/Chief Complaint Admitting Physician: Bela Duggan DO Primary Care Provider: Maria Gomez Chief Complaint: ABD PAIN History of Present Illness May Cummings is a 69 year old female that presented to the emergency department today for abdominal pain and nausea and vomiting. She had recently been seen by her primary care provider in 11/25/2019 along with surgeon on 11/25/2019, Dr. Medina. Patient had recent EGD which showed some gastritis, she has been on Carafate and Protonix. Patient reports that she began having worsening nausea or vomiting and abdominal pain over the weekend. She stated that she remembers pain gradually starting on and it is continued to progress. She stated that her last bowel movement was on Monday of last week and she has not been passing any gas over the weekend. She stated that the pain is located in the left upper quadrant but does fluctuate. She stated that she has been having nausea and vomiting symptoms for the past several weeks, stated that she has been on a bland diet and at times only clear liquids and continues to have the symptoms. She has had recent ER visit for similar symptoms over the past couple of weeks. Patient seen and evaluated in the emergency department and noted to have concern for proximal small bowel obstruction, therefore general surgery was consulted and patient was admitted to the hospital for further evaluation and treatment. Patient did have NG tube placed while in the ED. Of note patient has had several visits to the hospital and admissions dating back to 2017 with similar symptoms. Followed by general surgeon in the outpatient setting. Review of Systems Const: Denies: fever or chills Eyes: Denies: change in vision ENMT: Denies: nasal congestion Card: Denies: chest pain, palpitations or edema Resp: Denies: shortness of breath, productive cough or coughing up blood GI: Reports: abdominal pain, nausea, vomiting and constipation; Denies: diarrhea, blood in stool or black tarry stool : Denies: painful urination or blood in urine Musc: Denies: extremity pain or muscle cramps Skin/Breast: Denies: rash or new lesion Neuro: Denies: headache or dizziness Psych: Denies: anxiety or depression Endo: Denies: excessive urination or hot flashes Ike/Lymph: Denies: easy bruising or easy bleeding Medications/Allergies Allergies Allergy/AdvReac Type Severity Reaction Status Date / Time codeine AdvReac NAUSEA Verified 11/19/19 12:29 PFSH Acute PFSH: Statuses (acute, chronic, etc) shown below reflect problem list status as previously entered and may not be historically accurate Medical History (Updated 12/30/19 @ 09:14 by Bela Duggan DO) Anxiety disorder (Acute) Basilar artery aneurysm (Acute) Constipation (Acute) Dyslipidemia (Acute) Elevated glucose (Acute) Gastritis (Acute) Hemorrhoid (Acute) Hypertension (Acute) Hyperthyroidism (Acute) Insomnia (Acute) Migraine (Acute) Plantar fasciitis (Acute) Statin intolerance (Acute) Surgical History (Updated 12/30/19 @ 09:08 by Bela Duggan DO) H/O section (Acute) H/O splenectomy (Acute) 2007 History of esophagogastroduodenoscopy (EGD) (Acute) 2019 -gastritis S/P coil embolization of cerebral aneurysm (Acute) 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, stent subsequently removed Status post colonoscopy (Acute) 2018: Normal repeat in 10 years Family History Mother Diabetes Father Heart disease Denies family history of Anesthesia complication Bleeding disorder Social History (Updated 12/30/19 @ 09:10 by Bela Duggan DO) Smoking and tobacco status: former smoker Alcohol intake: current Alcohol intake frequency: holidays/special occasions only Substance/Drug Use: current Substance/Drug use frequency: few times a week Substance/Drug use type: Marijuana Lives independently: Yes Household members: spouse Marital status: Current occupational status: retired Vitals/I&O/Wt Last Vital Signs Temp 99 F 12/30/19 05:01 Pulse 87 12/30/19 07:10 Resp 18 12/30/19 07:10 BP 95/48 12/30/19 07:10 Pulse Ox 98 12/30/19 07:10 12/29/19 12/30/19 12/30/19 22:59 06:59 14:59 Intake Total 1000 / 1000 Balance 1000 / 1000 Weight last 48 hrs Weight 65.771 kg Physical Exam Const: COMMON NORMALS: oriented x3 and alert GENERAL APPEARANCE: cooperative ORIENTATION/CONSCIOUSNESS: Yes awake, Yes oriented to person, Yes oriented to place and Yes oriented to time HENMT: COMMON NORMALS: normocephalic and head/scalp atraumatic HEAD & SCALP: normocephalic and atraumatic Eye: COMMON NORMALS: PERRL PUPIL: Yes PERRL Neck/C-Spine: COMMON NORMALS: supple GENERAL: Yes normal visual inspection Resp: COMMON NORMALS: normal respiratory effort and clear to auscultation bilaterally EFFORT & INSPECTION: Yes able to speak in complete sentences AUSCULTATION: clear to auscultation bilaterally, no rhonchi and no wheezes Cardio: COMMON NORMALS: regular rate, regular rhythm and no murmurs RATE: regular rate RHYTHM: regular rhythm GI: OTHER: Soft, tender to palpation in the epigastric region and left lower quadrant, no guarding or rigidity, normal bowel sounds at time of my exam. P atient does have NG tube in place in the left nare : COMMON NORMALS: Yes no CVA tenderness BLADDER/KIDNEY EXAM: Yes no CVA tenderness Back/Pelvis: COMMON NORMALS: no CVA tenderness Extremity: COMMON NORMALS: no clubbing, cyanosis or edema and no calf tenderness Neuro: COMMON NORMALS: oriented x3, CN's II-XII intact bilaterally, moves all extremities and no focal motor deficits SENSORIUM/ORIENTATION: Yes alert, Yes oriented to person, Yes oriented to place and Yes oriented to time SPEECH: speech normal Psych: COMMON NORMALS: mental status grossly normal and cooperative Skin: COMMON NORMALS: no rashes or lesions noted GENERAL SKIN EXAM: no rashes or lesions noted Data : 12/30/19 05:38 12/30/19 05:38 CT Abd/Pel: My impression: Imaging personally reviewed, report as read by radiologist Radiologist's impression: FINDINGS: Lungs: There is bilateral dependent atelectasis. Liver: The liver is homogeneous and is not enlarged. Gallbladder and bile ducts: No calcified gallstones, gallbladder wall thickening, or pericholecystic inflammation. No biliary ductal dilation. Pancreas: No pancreatic mass. No peripancreatic inflammation. No pancreatic ductal dilation. Spleen: Prior splenectomy. Adrenals: No adrenal mass. Kidneys and ureters: No hydronephrosis. No nephrolithiasis. There is a simple appearing 7 mm cyst in the inferior pole the right kidney. Stomach and bowel: There is dilated, fluid-filled duodenum and proximal jejunum with decompression of the more distal jejunum and particularly the ileum. The colon is not distended. There is diverticulosis without diverticulitis. No bowel wall thickening. Appendix: The appendix has a normal caliber with no wall thickening. No periappendiceal stranding. Intraperitoneal space: No ascites or pneumoperitoneum. Vasculature: No abdominal aortic aneurysm. No iliac or common femoral artery aneurysm. Lymph nodes: No pathologically enlarged lymph nodes. Bladder: No urinary bladder calculus or wall thickening. Reproductive: Unremarkable as visualized. Bones/joints: There is multilevel disc degeneration and facet arthropathy in the lumbar spine. Soft tissues: Ventral hernias containing only fat. CT/CT abdomen pelvis w con* [id number] IMPRESSION: Proximal small bowel obstruction. A&P Assessment and plan (1) Small bowel obstruction: CT scan as noted above with concern for proximal small bowel obstruction. Admit to [facility] General surgeon, Dr. Lin consulted in the ED. Will follow up with recommendations, appreciate assistance in patient's care Continue with NG tube at low intermittent suction, will continue with conservative management at this time N.p.o. with bowel rest Status: Acute Code(s): K56.609 - Unspecified intestinal obstruction, unspecified as to partial versus complete obstruction (2) Intractable nausea and vomiting: Recurrent issue dating back to 2017. Further plan and with this acute episode as noted above with concern for small bowel obstruction, continue with NG tube placement at this time NPO status IVF NS with 20KCl Status: Acute Code(s): R11.2 - Nausea with vomiting, unspecified (3) Hyperthyroidism: On chronic methimazole Will check TSH Status: Acute Code(s): E05.90 - Thyrotoxicosis, unspecified without thyrotoxic crisis or storm (4) Hypertension: On lisinopril 10mg daily at home, and reported atenolol Status: Acute Code(s): I10 - Essential (primary) hypertension Additional A&P Information Hypokalemia: Continue with potassium replacement, normal saline with 20 of KCl Acute kidney injury secondary to dehydration: Continue with IV fluids Dehydration: IV fluids as above Leukocytosis: Appears to be chronic in nature and also appears to be hemoconc entrated at this time with dehydration, will recheck in the morning, no infectious etiology identified at this time. Hyperglycemia without diabetes mellitus: Will check A1c Hematuria: asymptomatic, would recommend close follow up with PCP and urology follow up if continued DVT ppx: SCDs and Lovenox Diet: NPO Code status: Full code Attestations Medical Necessity Statement*: Patient requires hospitalization for small bowel obstruction, expected stay greater than 2 midnights Coding Level of Care Code Acute Director Business Systems for Chg Fwd Diagnoses Small bowel obstruction K56.609 Intractable nausea and vomiting R11.2 Hyperthyroidism E05.90 Hypertension I10
[2019-12-30] MEDS: LORazepam 2 mg/mL INJ 1 mL 0.5 MG IVP (08:13)
[2019-12-30] MEDS: cetacaine Spray 5 gm Can 1 SPRAY TOPICAL (08:13)
--- NOTE | 2019-12-30 09:12 | ECG_ITS ---
Measurements Intervals [place] Rate: 53 P: 0 DC: 158 QRS: 32 QRSD: 82 T: 44 QT: 444 QTc: 420 SINUS BRADYCARDIA NONSPECIFIC T-WAVE ABNORMALITY Compared to ECG 10/18/2019 17:36:14 Sinus rhythm no longer present T-wave abnormality still present Electronically Signed On 12-30-2019 20:08:15 FLOATLIGHT LOADING SUPERVISOR by Marylou Mooney M.D. [email or web address]
[2019-12-30 10:03] LABS: Estmated Average Glucose 131; Hemoglobin A1C 6.2 % (4.0-6.0)
[2019-12-30 10:31] LABS: Thyroid Stimulating Hormone 1.91 uIU/mL (0.27-4.20)
[2019-12-30] MEDS: sodium chlor 0.9% + KCl 20 mEq 20 MEQ/1,000 ML BAG 125 MEQ IV ×3 (10:43→23:24)
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
[2019-12-30] MEDS: pantoprazole DR 40 mg Tablet PO (16:15)
[2019-12-30] MEDS: sucralfate 1 gm Tablet PO ×3 (16:15→20:33)
[2019-12-30] MEDS: enoxaparin 40 mg/0.4 mL Syringe SUBCUT (16:15)
[2019-12-30] MEDS: clopidogrel 75 mg Tablet PO (16:15)
[2019-12-30] MEDS: methIMAzole 5 MG Tablet 10 MG PO (18:19)
[2019-12-30] MEDS: lactobacillus 1 Tablet 1 TAB PO (18:19)
[2019-12-31 04:00] VITALS: BP 118/76; PULSE 69; RESP 20; TEMP 36.6; O2SAT 94
--- NOTE | 2019-12-31 06:00 | XR_ITS ---
WS: [id number] ABDOMEN KUB CLINICAL INFORMATION: Small bowel obstruction COMPARISON: None. FINDINGS: Enteric tube with tip in proximal stomach. Sidehole at the GE junction. Recommend advancement. Lumbar scoliosis convex right. Advanced spondylitic changes. Unremarkable bowel gas pattern. XR/XR KUB portable [id number] Impression: Enteric tube with tip in proximal stomach. Sidehole the GE junction. Recommend advancement.
--- NOTE | 2019-12-31 06:23 | P.PN_ITS ---
Subjective Subjective: Interval history: Patient overall feels better and started passing gas No acute events overnight Vitals/I&O/Wt Last Vital Signs Temp 97.9 F 12/31/19 04:00 Pulse 69 12/31/19 04:00 Resp 20 H 12/31/19 04:00 BP 118/76 12/31/19 04:00 Pulse Ox 94 12/31/19 04:00 12/30/19 12/30/19 12/31/19 14:59 22:59 06:59 Intake Total 753.75 / 753.75 951.667 / 1705.417 Balance 753.75 / 753.75 951.667 / 1705.417 Weight last 48 hrs Weight 145 lb Physical Exam Const: COMMON NORMALS: no apparent distress and oriented x3 GENERAL APPEARANCE: cooperative ORIENTATION/CONSCIOUSNESS: Yes awake, Yes oriented to person, Yes oriented to place and Yes oriented to time Neck/C-Spine: GENERAL: Yes other (NG in place with minimal aspirate) GI: COMMON NORMALS: soft to palpation; negative for no hepatosplenomegaly INSPECTION: Yes normal to inspection PALPATION: Yes soft, No firm, No tender, No guarding, No rigid and No no hepatosplenomegaly Neuro: COMMON NORMALS: oriented x3 SENSORIUM/ORIENTATION: Yes oriented to person, Yes oriented to place and Yes oriented to time Data : 12/31/19 05:00 12/31/19 05:00 A&P Assessment and plan (1) Small bowel obstruction: At this point small bowel obstruction is resolving, will plan to clamp NG tube for 2 hours and check residuals if less than 200 will DC NG tube and start the patient clear liquid. If patient continues to do well we can advance diet as tolerated and potentially discharge home Instructions to avoid constipation Follow-up with primary care provider as scheduled Return to surgery office as needed Status: Acute Code(s): K56.609 - Unspecified intestinal obstruction, unspecified as to partial versus complete obstruction Attestations Medical Necessity Statement*: Observation Time Spent in Patient Care: less than 15 minutes Coding Level of Care Code Acute Vacuum Forming Machine Operator for Chg Fwd Exam Problem Focused Diagnoses Small bowel obstruction K56.609
[2019-12-31 06:34] LABS: Basophils # 0.1 10^3/uL (0.0-0.1); Basophils % 0.6 %; Eosinophils # 0.1 10^3/uL (0.0-0.8); Eosinophils % 0.6 %; Hematocrit 36.6 % (37.0-47.0); Hemoglobin 11.3 g/dL (11.5-15.3); Lymphocytes # 6.1 10^3/uL (0.8-4.8); Lymphocytes % 43.7 %; Mean Corpuscular HGB Conc 30.9 g/dL (30.0-36.0); Mean Corpuscular Hemoglobin 26.8 pg (28.0-34.0); Mean Corpuscular Volume 86.7 fL (81-99); Mean Platelet Volume 10.1 fL (7.4-10.4); Monocytes # 1.2 10^3/uL (0.2-0.9); Monocytes % 8.8 %; Neutrophils # 6.4 10^3/uL (1.8-7.7); Nucleated Red Blood Cells % 0 %; Platelet Count 403 10^3/cmm (130-400); Red Blood Count 4.22 10^6/uL (4.1-5.3); Red Cell Distribution Width 16.3 % (12.1-15.1); White Blood Count 13.9 10^3/uL (4.0-10.0)
[2019-12-31 06:37] LABS: Alanine Aminotransferase 7 U/L (0-33); Albumin Level 3.2 g/dL (3.5-5.2); Alkaline Phosphatase 65 IU/L (35-105); Aspartate Amino Transferase 17 U/L (0-32); Blood Urea Nitrogen 23 mg/dL (8-23); Calcium 8.8 mg/dL (8.5-10.5); Carbon Dioxide 25 mmol/L (22-29); Chloride 104 mmol/L (98-107); Creatinine Clr Calc Pharmacy 52.6548; Globulin 2.8 g/dL (1.3-4.6); Glomerular Filtration Rate 62.5 mL/min (90-130); Glucose 88 mg/dL (65-115); Sodium 140 mmol/L (136-145); Total Bilirubin 0.6 mg/dL (0.15-1.2)
[2019-12-31 07:32] LABS: Slide Review Slide Review Perform
[2019-12-31 08:00] VITALS: BP 125/75; PULSE 70; RESP 20; TEMP 36.9; O2SAT 94
[2019-12-31] MEDS: sucralfate 1 gm Tablet PO ×2 (08:26→15:19)
[2019-12-31] MEDS: lactobacillus 1 Tablet 1 TAB PO (08:27)
[2019-12-31] MEDS: clopidogrel 75 mg Tablet PO (08:27)
[2019-12-31] MEDS: pantoprazole DR 40 mg Tablet PO (08:27)
[2019-12-31] MEDS: atenolol 50 mg Tablet PO (08:27)
[2019-12-31] MEDS: methIMAzole 5 MG Tablet 10 MG PO (08:30)
--- NOTE | 2019-12-31 08:35 | P.PN_ITS ---
Subjective Subjective: Interval history: Patient awake in bed at time of exam this morning. She reports that abdomen is feeling better today. She reported she began passing flatus overnight. Only concern is NG tube discomfort. Patient denies any chest pain or shortness of breath Vitals/I&O/Wt Last Vital Signs Temp 98.4 F 12/31/19 08:00 Pulse 70 12/31/19 08:00 Resp 20 H 12/31/19 08:00 BP 125/75 12/31/19 08:00 Pulse Ox 94 12/31/19 08:00 12/30/19 12/31/19 12/31/19 22:59 06:59 14:59 Intake Total 753.75 / 753.75 951.667 / 1705.417 Balance 753.75 / 753.75 951.667 / 1705.417 Weight last 48 hrs Weight 65.771 kg Physical Exam Const: COMMON NORMALS: oriented x3 and alert GENERAL APPEARANCE: cooperative ORIENTATION/CONSCIOUSNESS: Yes awake, Yes oriented to person, Yes oriented to place and Yes oriented to time HENMT: COMMON NORMALS: normocephalic and head/scalp atraumatic HEAD & SCA LP: normocephalic and atraumatic Eye: COMMON NORMALS: PERRL PUPIL: Yes PERRL Neck/C-Spine: COMMON NORMALS: supple GENERAL: Yes normal visual inspection Resp: COMMON NORMALS: normal respiratory effort and clear to auscultation bilaterally EFFORT & INSPECTION: Yes able to speak in complete sentences AUSCULTATION: clear to auscultation bilaterally, no rhonchi and no wheezes Cardio: COMMON NORMALS: regular rate, regular rhythm and no murmurs RATE: regular rate RHYTHM: regular rhythm GI: OTHER: Abdomen soft, non-tender, non-distended, normal bowel sounds Extremity: COMMON NORMALS: no clubbing, cyanosis or edema and no calf tenderness Neuro: COMMON NORMALS: oriented x3, CN's II-XII intact bilaterally, moves all extremities and no focal motor deficits SENSORIUM/ORIENTATION: Yes alert, Yes oriented to person, Yes oriented to place and Yes oriented to time SPEECH: speech normal Psych: COMMON NORMALS: mental status grossly normal and cooperative Skin: COMMON NORMALS: no rashes or lesions noted GENERAL SKIN EXAM: no rashes or lesions noted Data : 12/31/19 05:00 12/31/19 05:00 A&P Assessment and plan (1) Small bowel obstruction: NG tube in place, clamped and if patient does well with no significant residual we will plan for removal of NG tube and start on clear liquid diet. We will follow-up with Dr. Lin's recommendations. Potential discharge later today if patient has continued significant improvement Status: Acute Code(s): K56.609 - Unspecified intestinal obstruction, unspecified as to partial versus complete obstruction (2) Intractable nausea and vomiting: Nausea and vomiting improved today, denies any concerns with nausea or ab dominal pain. Status: Acute Code(s): R11.2 - Nausea with vomiting, unspecified (3) Hyperthyroidism: TSH within normal limits, continue home methimazole Status: Acute Code(s): E05.90 - Thyrotoxicosis, unspecified without thyrotoxic crisis or storm (4) Hypertension: Lisinopril on hold, continue atenolol, blood pressure remains within normal limits today Status: Acute Code(s): I10 - Essential (primary) hypertension Additional A&P Information Hypokalemia: Secondary to GI losses, resolved Acute kidney injury secondary to dehydration: Resolved with IV fluids Dehydration: Resolved Leukocytosis: Appears to be chronic in nature and also appears to be hemoconcentrated at this time with dehydration, no infectious etiology identified at this time. Hyperglycemia without diabetes mellitus: A1c 6.2 Hematuria: asymptomatic, would recommend close follow up with PCP and urology follow up if continued DVT ppx: SCDs and Lovenox Diet: NPO, increase to clear liquid diet if tolerated Code status: Full code Attestations Medical Necessity Statement*: Hospitalization for small bowel obstruction with NG tube placement and acute kidney injury. Patient has had significant improvement in the past 24 hours we will continue to monitor closely. Coding Level of Care Code Acute Director Wholesale for Chg Fwd Exam Problem Focused Diagnoses Small bowel obstruction K56.609 Intractable nausea and vomiting R11.2 Hyperthyroidism E05.90 Hypertension I10
[2019-12-31 11:11] VITALS: PULSE 59; O2SAT 93
[2019-12-31 11:32] VITALS: BP 131/85; PULSE 55; RESP 18; TEMP 36.8; O2SAT 94
--- NOTE | 2019-12-31 14:50 | P.DS_ITS ---
Discharge Providers Date of Admission: 12/30/19 08:03 Date of Discharge: December 31, 2019 Attending Provider at Admission: Bela Duggan DO Attending Provider at Discharge: Bela Duggan DO Diagnoses at Discharge Discharge Diagnosis (1) Small bowel obstruction: Status: Acute Problem details: With conservative treatment with NG tube, removed and tolerating well. No further abdominal pain or nausea (2) Intractable nausea and vomiting: Status: Acute Problem details: Resolved (3) Hyperthyroidism: Status: Acute Problem details: Continue on home methimazole (4) Hypertension: Status: Acute Problem details: Continue on atenolol, hold lisinopril until seen by primary care provider Reason for Visit Reason for Visit: Reason For Visit: ABD PAIN Hospital Course Hospital Course: Patient was seen and evaluated in the emergency department noted to have concern for small bowel obstruction and admitted to the hospital for further evaluation and treatment. She had an NG tube placed in the ED and general surgeon was consulted. Patient significantly improved and with IV fluids her acute renal injury resolved and her hypokalemia resolved. She had her NG tube clamped and had minimal residual, it was removed and she was started on a clear liquid diet and she did well with no concerns. She had no continued abdominal pain, no nausea or vomiting and was feeling well on date of discharge requesting discharge to home Discharge Summary: Discharge to home with spouse Follow-up with primary care provider in 3 to 5 days, recommend continued stool softeners Follow-up with general surgeon as needed Physical Exam Const: COMMON NORMALS: oriented x3 and alert GENERAL APPEARANCE: cooperative ORIENTATION/CONSCIOUSNESS: Yes awake, Yes oriented to person, Yes oriented to place and Yes oriented to time HENMT: COMMON NORMALS: normocephalic and head/scalp atraumatic HEAD & SCALP: normocephalic and atraumatic Eye: COMMON NORMALS: PERRL PUPIL: Yes PERRL Neck/C-Spine: COMMON NORMALS: supple GENERAL: Yes normal visual inspection Resp: COMMON NORMALS: normal respiratory effort and clear to auscultation bilaterally EFFORT & INSPECTION: Yes able to speak in complete sentences AUSCULTATION: clear to auscultation bilaterally, no rhonchi and no wheezes Cardio: COMMON NORMALS: regular rate, regular rhythm and no murmurs RATE: regular rate RHYTHM: regular rhythm GI: OTHER: Abdomen soft, non-tender, non-distended, normal bowel sounds : COMMON NORMALS: Yes no CVA tenderness BLADDER/KIDNEY EXAM: Yes no CVA tenderness Back/Pelvis: COMMON NORMALS: no CVA tenderness Extremity: COMMON NORMALS: no clubbing, cyanosis or edema and no calf tenderness Neuro: COMMON NORMALS: oriented x3, CN's II-XII intact bilaterally, moves all extremities and no focal motor deficits SENSORIUM/ORIENTATION: Yes alert, Yes oriented to person, Yes oriented to place and Yes oriented to time SPEECH: speech normal Psych: COMMON NORMALS: mental status grossly normal and cooperative Skin: COMMON NORMALS: no rashes or lesions noted GENERAL SKIN EXAM: no rashes or lesions noted Discharge Data Data Completed and Pending: Completed Studies During Hospitalization Category Date Time Status CT abdomen pelvis w con* [id number] Urge nt Cat Scan 12/30/19 05:53 Completed XR KUB portable 7 [id number] Routine Exams 12/31/19 06:00 Completed Labs from last 24 hours 12/31/19 12/31/19 05:00 05:00 WBC 13.9 H RBC 4.22 Hgb 11.3 L Hct 36.6 L MCV 86.7 D MCH 26.8 L MCHC 30.9 D RDW 16.3 H Plt Count 403 H MPV 10.1 Neut % (Auto) 46.0 Lymph % (Auto) 43.7 [place] % (Auto) 8.8 Eos % (Auto) 0.6 Baso % (Auto) 0.6 Neut # (Auto) 6.4 Lymph # (Auto) 6.1 H [place] # (Auto) 1.2 H Eos # (Auto) 0.1 Baso # (Auto) 0.1 Nucleated RBC % (a uto) 0 Nucleated RBCs # 0.0 Sodium 140 Potassium 4.0 Chloride 104 Carbon Dioxide 25 Anion Gap 15.0 BUN 23 Creatinine 0.9 GFR Calculation 62.5 L Glucose 88 Calcium 8.8 Total Bilirubin 0.6 AST 17 ALT 7 Alkaline Phosphata se 65 Total Protein 6.0 L D Albumin 3.2 L Globulin 2.8 Vitals: Last Vital Signs Temp 98.2 F 12/31/19 11:32 Pulse 55 L 12/31/19 11:32 Resp 18 12/31/19 11:32 BP 131/85 12/31/19 11:32 Pulse Ox 94 02/11/20 11:32 Discharge Plan Discharge Patient Disposition: Home, Self-Care Condition: Stable Prescriptions: New docusate sodium 100 mg capsule 100 mg PO BID 30 Days Qty: 60 RF: 0 Continued sucralfate [Carafate] 1 gram tablet 1 gm PO QID RF: 0 methimazole 10 mg tablet 10 mg PO DAILY RF: 0 atenolol 50 mg tablet 50 mg PO DAILY RF: 0 sumatriptan succinate [Imitrex] 50 mg tablet 50 mg PO PRN PRN (Reason: Migraine Headache) RF: 0 polyethylene glycol 3350 [Miralax] 17 gram powder in packet 17 gm PO DAILY RF: 0 clopidogrel 75 mg tablet 75 mg PO DAILY RF: 0 pantoprazole [Protonix] 40 mg tablet,delayed release (DR/EC) 40 mg PO DAILY RF: 0 hydrocodone-acetaminophen 10-325 mg tablet 1 tab PO Q6H PRN (Reason: Pain) RF: 0 Probiotic (S.boulardii) 250 mg capsule 250 mg PO BID RF: 0 ondansetron HCl [Zofran] 4 mg tablet 4 mg PO Q6H PRN (Reason: nausea and vomiting) Qty: 10 RF: 0 Held lisinopril 10 mg tablet 10 mg PO DAILY RF: 0 Hold Instructions: Resume on 01/06/20. Follow-up with primary care provider to discuss need to continue this medication Discharge Orders: Discharge Order (Routine); Ordered 12/31/19 Ordered By: Bela Duggan Referrals: Davy Medina MD [Physician] - (As previously scheduled) Discharge Diet: Advance as tolerated and GI Soft Discharge Activity: Increase activity as tolerated Activity Restrictions/Additional Instructions: Follow-up with primary care provider in 3 to 5 days Started on stool softener to take twice daily Follow-up with Dr. Medina or Dr. Lin as previously scheduled or as needed Call your physician or present to the ER for any acute illness or concern Discharge Attestations Time Spent in Discharge Care*: greater than 30 min Quality Metrics Clinical Quality Measures During this hospital stay, did patient experience: None Coding Level of Care Code Acute Disc Pad Plate Filler for Chg Fwd Diagnoses Small bowel obstruction K56.609 Intractable nausea and vomiting R11.2 Hyperthyroidism E05.90 Hypertension I10
[2019-12-31 15:40] VITALS: BP 131/85; PULSE 55; RESP 18; TEMP 36.8; O2SAT 94
[2019-12-31 15:45] VITALS: BP 162/83; PULSE 65; RESP 18; TEMP 37.2; O2SAT 94
--- NOTE | 2019-12-31 17:22 | PC.NURSE ---
DISCHARGE SUMMARY PATIENT WAS GIVEN DISCHARGE ORDERS. IV WAS DISCONTINUED AND NG TUBE WAS DISCONTINUED. PATIENT PRESCRIPTIONS WERE SENT TO PREFERRED PHARMACY. TOOK PATIENT HOME. FOLLOW UP APPOINTMENTS MADE FOR PATIENT. VITALS STABLE AND ALERT AND ORIENTED. PAIN WAS AT A 0 OUT OF 10.
== END 2019-12-31 17:26 | disposition home or self-care (01) | DRG 390 ==
LOC: ER 07:09 → MEDSURG 14:14
PROVIDERS: Emergency Medicine; Admitting Provider Family Medicine; Emergency Provider Family Medicine; Visit Provider Family Medicine
DX: K56.609 Unspecified intestinal obstruction, unspecified as to partial versus complete obstruction (principal); E05.90 Thyrotoxicosis, unspecified without thyrotoxic crisis or storm; I10 Essential (primary) hypertension; E78.5 Hyperlipidemia, unspecified; Z87.891 Personal history of nicotine dependence
CPT/HCPCS: 12345; 36415; 74018; 74177; 80053; 81001; 83036; 83605; 83690; 84443; 85025; 86140; 93005; 96365; 96366; 96372; 96375; 99284; A9270; J1630; J1650; J2060; J2270; J2405; J7030; Q9967

== ENCOUNTER 2020-02-05 15:40 | Emergency (ER) | payer MEDICARE, SELFPAY ==
[2020-02-05 15:40] VITALS: BP 168/106; PULSE 86; RESP 24; TEMP 36.6; O2SAT 98; BMI 28.3
--- NOTE | 2020-02-05 15:43 | ED_ITS ---
Entered by Mahogany Sparks, acting as scribe for Kasi Gonzales DO Documented by User: Kasi Gonzales DO 02/05/20 15:43 HPI - Abdominal Pain General: Chief Complaint: Abdominal Pain Stated Complaint: Abd Pain Time Seen by Provider: 02/05/20 15:51 Review of Systems Musc: Denies: joint warmth PFSH ED PFSH: Social History Smoking and tobacco status: former smoker Alcohol intake: current Alcohol intake frequency: holidays/special occasions only Lives independently: Yes Household members: spouse Marital status: Current occupational status: retired Course Vital Signs: Vital signs: Vital Signs Temperature 97.9 F 02/05/20 15:40 Pulse Rate 84 02/05/20 18:53 Respiratory Rate 18 02/05/20 18:53 Blood Pressure 96/94 02/05/20 18:53 Pulse Oximetry 98 02/05/20 15:40 MDM - Abdominal Pain Lab Data: Labs: Lab Results 02/05/20 02/05/20 02/05/20 Range/Units 16:08 16:08 16:08 WBC 15.5 H (4.0-10.0) 10^3/ uL RBC 5.02 (4.1-5.3) 10^6/u L Hgb 13.8 (11.5-15.3) g/dL Hct 43.6 (37.0-47.0) % MCV 86.9 (81-99) fL MCH 27.5 L (28.0-34.0) pg MCHC 31.7 (30.0-36.0) g/dL RDW 17.2 H (12.1-15.1) % Plt Count 458 H (130-400) 10^3/c mm MPV 9.3 (7.4-10.4) fL Neut % (Auto) 72.3 % Lymph % (Auto) 23.7 % [place] % (Auto) 3.2 % Eos % (Auto) 0.1 % Baso % (Auto) 0.5 % Neut # (Auto) 11.2 H (1.8-7.7) 10^3/u L Lymph # (Auto) 3.7 (0.8-4.8) 10^3/u L [place] # (Auto) 0.5 (0.2-0.9) 10^3/u L Eos # (Auto) 0.0 (0.0-0.8) 10^3/u L Baso # (Auto) 0.1 (0.0-0.1) 10^3/u L Nucleated RBC % (a uto) 0 % Nucleated RBCs # 0.0 /100WBC Sodium 139 (136-145) mmol/L Potassium 3.7 (3.5-5.1) mmol/L Chloride 103 (98-107) mmol/L Carbon Dioxide 21 L (22-29) mmol/L Anion Gap 18.7 (5-19) BUN 10 (8-23) mg/dL Creatinine 0.8 (0.5-0.9) mg/dL GFR Calculation 71.3 L (90-130) mL/min Glucose 174 H (65-115) mg/dL Calculated Osmolal ity 288 (285-295) mOsm/k g Lactate 1.9 (0.5-2.2) mmol/L Calcium 9.7 (8.5-10.5) mg/dL Total Bilirubin 0.3 (0.15-1.2) mg/dL AST 16 (0-32) U/L ALT 9 (0-33) U/L Alkaline Phosphata se 89 (35-105) IU/L Total Protein 7.4 (6.6-8.7) g/dL Albumin 4.1 (3.5-5.2) g/dL Globulin 3.3 (1.3-4.6) g/dL Lipase 26 (13-60) U/L Urine Color (Yellow) Urine Appearance (CLEAR) Urine pH (5-7) Ur Specific Gravit y (1.005-1.030) Urine Protein (Negative) Urine Glucose (UA) (Normal) Urine Ketones (Negative) Urine Blood (Negative) Urine Nitrate (Negative) Urine Bilirubin (NEGATIVE) Prot Sulfosalicyli c Acd Urine Urobilinogen (Negative) mg/dL Ur Leukocyte Ami ase (Negative) 02/05/20 Range/Units 17:30 WBC (4.0-10.0) 10^3/ uL RBC (4.1-5.3) 10^6/u L Hgb (11.5-15.3) g/dL Hct (37.0-47.0) % MCV (81-99) fL MCH (28.0-34.0) pg MCHC (30.0-36.0) g/dL RDW (12.1-15.1) % Plt Count (130-400) 10^3/c mm MPV (7.4-10.4) fL Neut % (Auto) % Lymph % (Auto) % [place] % (Auto) % Eos % (Auto) % Baso % (Auto) % Neut # (Auto) (1.8-7.7) 10^3/u L Lymph # (Auto) (0.8-4.8) 10^3/u L [place] # (Auto) (0.2-0.9) 10^3/u L Eos # (Auto) (0.0-0.8) 10^3/u L Baso # (Auto) (0.0-0.1) 10^3/u L Nucleated RBC % (a uto) % Nucleated RBCs # /100WBC Sodium (136-145) mmol/L Potassium (3.5-5.1) mmol/L Chloride (98-107) mmol/L Carbon Dioxide (22-29) mmol/L Anion Gap (5-19) BUN (8-23) mg/dL Creatinine (0.5-0.9) mg/dL GFR Calculation (90-130) mL/min Glucose (65-115) mg/dL Calculated Osmolal ity (285-295) mOsm/k g Lactate (0.5-2.2) mmol/L Calcium (8.5-10.5) mg/dL Total Bilirubin (0.15-1.2) mg/dL AST (0-32) U/L ALT (0-33) U/L Alkaline Phosphata se (35-105) IU/L Total Protein (6.6-8.7) g/dL Albumin (3.5-5.2) g/dL Globulin (1.3-4.6) g/dL Lipase (13-60) U/L Urine Color Straw (Yellow) Urine Appearance Clear (CLEAR) Urine pH 8 H (5-7) Ur Specific Gravit y 1.010 (1.005-1.030) Urine Protein Neg (Negative) Urine Glucose (UA) Norm (Normal) Urine Ketones Negative (Negative) Urine Blood Neg (Negative) Urine Nitrate Negative (Negative) Urine Bilirubin Neg (NEGATIVE) Prot Sulfosalicyli c Acd Negative Urine Urobilinogen Norm (Negative) mg/dL Ur Leukocyte Ami ase Negative (Negative) Discharge Plan Discharge Patient Disposition: Home, Self-Care w Plan Readm Clinical Impression: Recurrent generalized abdominal pain, Gastroenteritis Condition: Stable Prescriptions: New dicyclomine 20 mg tablet 20 mg PO QID PRN (Reason: abd pain) Qty: 20 RF: 0 ondansetron 4 mg tablet,disintegrating 4 mg PO Q6H PRN (Reason: nausea and vomiting) Qty: 14 RF: 0 dicyclomine 20 mg tablet 20 mg PO QID Qty: 20 RF: 0 No Action lisinopril 10 mg tablet 10 mg PO DAILY RF: 0 Hold Instructions: Resume on 01/06/20. Follow-up with primary care provider to discuss need to continue this medication methimazole 10 mg tablet 10 mg PO DAILY RF: 0 polyethylene glycol 3350 [Miralax] 17 gram powder in packet 17 gm PO DAILY RF: 0 hydrocodone-acetaminophen 10-325 mg tablet 1 tab PO Q6H PRN (Reason: Pain) RF: 0 Probiotic (S.boulardii) 250 mg capsule 250 mg PO BID RF: 0 atenolol 50 mg tablet 50 mg PO DAILY Qty: 30 RF: 0 clopidogrel 75 mg tablet 75 mg PO DAILY Qty: 30 RF: 0 ondansetron HCl [Zofran] 4 mg tablet 4 mg PO Q6H PRN (Reason: nausea and vomiting) Qty: 10 RF: 0 pantoprazole [Protonix] 40 mg tablet,delayed release (DR/EC) 40 mg PO DAILY Qty: 30 RF: 0 sucralfate [Carafate] 1 gram tablet 1 gm PO QID Qty: 120 RF: 0 cyclobenzaprine 10 mg tablet 10 mg PO TID Qty: 30 RF: 0 sumatriptan succinate [Imitrex] 50 mg tablet 50 mg PO PRN PRN (Reason: Migraine Headache) Qty: 9 RF: 0 Referrals: Maria Gomez APN [Primary Care Provider] - Patient Instructions: Cholecystitis (ED), Abdominal Pain (ED) Discharge Date/Time: 02/05/20 19:37 Coding Level of Care Code ED Buildings And Grounds Supervisor for Chg Fwd Documented by User: Jayden Otero DO 02/08/20 14:50 HPI - Abdominal Pain General: Chief Complaint: Abdominal Pain Stated Complaint: Abd Pain Time Seen by Provider: 02/05/20 15:51 History of Present Illness: Associated Symptoms: Denies bloating, chills, coffee ground emesis, constipation, diarrhea, dysuria, fever(s), hematochezia, hematemesis, melena, nausea and vomiting Review of Systems Const: Denies: fever, chills, body aches, change in appetite, fatigue or malaise ENMT: Denies: throat pain, ear pain, nasal discharge or nasal congestion Card: Denies: chest pain, edema, shortness of breath on exertion or shortness of breath when lying down Resp: Denies: shortness of breath, productive cough or non-productive cough GI: Denies: abdominal pain, nausea, vomiting, vomiting blood, coffee grounds in vomit, diarrhea, constipation, bloating, blood in stool or black tarry stool : Denies: flank pain, difficulty urinating, painful urination, urinary frequency or urinary urgency Skin/Breast: Denies: rash or itching PFSH ED PFSH: Social History Smoking and tobacco status: former smoker Alcohol intake: current Alcohol intake frequency: holidays/special occasions only Lives independently: Yes Household members: spouse Marital status: Current occupational status: retired Course Vital Signs: Vital signs: Vital Signs Temperature 97.9 F 02/05/20 15:40 Pulse Rate 84 02/05/20 18:53 Respiratory Rate 18 02/05/20 18:53 Blood Pressure 96/94 02/05/20 18:53 Pulse Oximetry 98 02/05/20 15:40 MDM - Abdominal Pain Lab Data: Labs: Lab Results 02/05/20 02/05/20 02/05/20 Range/Units 16:08 16:08 16:08 WBC 15.5 H (4.0-10.0) 10^3/ uL RBC 5.02 (4.1-5.3) 10^6/u L Hgb 13.8 (11.5-15.3) g/dL Hct 43.6 (37.0-47.0) % MCV 86.9 (81-99) fL MCH 27.5 L (28.0-34.0) pg MCHC 31.7 (30.0-36.0) g/dL RDW 17.2 H (12.1-15.1) % Plt Count 458 H (130-400) 10^3/c mm MPV 9.3 (7.4-10.4) fL Neut % (Auto) 72.3 % Lymph % (Auto) 23.7 % [place] % (Auto) 3.2 % Eos % (Auto) 0.1 % Baso % (Auto) 0.5 % Neut # (Auto) 11.2 H (1.8-7.7) 10^3/u L Lymph # (Auto) 3.7 (0.8-4.8) 10^3/u L [place] # (Auto) 0.5 (0.2-0.9) 10^3/u L Eos # (Auto) 0.0 (0.0-0.8) 10^3/u L Baso # (Auto) 0.1 (0.0-0.1) 10^3/u L Nucleated RBC % (a uto) 0 % Nucleated RBCs # 0.0 /100WBC Sodium 139 (136-145) mmol/L Potassium 3.7 (3.5-5.1) mmol/L Chloride 103 (98-107) mmol/L Carbon Dioxide 21 L (22-29) mmol/L Anion Gap 18.7 (5-19) BUN 10 (8-23) mg/dL Creatinine 0.8 (0.5-0.9) mg/dL GFR Calculation 71.3 L (90-130) mL/min Glucose 174 H (65-115) mg/dL Calculated Osmolal ity 288 (285-295) mOsm/k g Lactate 1.9 (0.5-2.2) mmol/L Calcium 9.7 (8.5-10.5) mg/dL Total Bilirubin 0.3 (0.15-1.2) mg/dL AST 16 (0-32) U/L ALT 9 (0-33) U/L Alkaline Phosphata se 89 (35-105) IU/L Total Protein 7.4 (6.6-8.7) g/dL Albumin 4.1 (3.5-5.2) g/dL Globulin 3.3 (1.3-4.6) g/dL Lipase 26 (13-60) U/L Urine Color (Yellow) Urine Appearance (CLEAR) Urine pH (5-7) Ur Specific Gravit y (1.005-1.030) Urine Protein (Negative) Urine Glucose (UA) (Normal) Urine Ketones (Negative) Urine Blood (Negative) Urine Nitrate (Negative) Urine Bilirubin (NEGATIVE) Prot Sulfosalicyli c Acd Urine Urobilinogen (Negative) mg/dL Ur Leukocyte Ami ase (Negative) 02/05/20 Range/Units 17:30 WBC (4.0-10.0) 10^3/ uL RBC (4.1-5.3) 10^6/u L Hgb (11.5-15.3) g/dL Hct (37.0-47.0) % MCV (81-99) fL MCH (28.0-34.0) pg MCHC (30.0-36.0) g/dL RDW (12.1-15.1) % Plt Count (130-400) 10^3/c mm MPV (7.4-10.4) fL Neut % (Auto) % Lymph % (Auto) % [place] % (Auto) % Eos % (Auto) % Baso % (Auto) % Neut # (Auto) (1.8-7.7) 10^3/u L Lymph # (Auto) (0.8-4.8) 10^3/u L [place] # (Auto) (0.2-0.9) 10^3/u L Eos # (Auto) (0.0-0.8) 10^3/u L Baso # (Auto) (0.0-0.1) 10^3/u L Nucleated RBC % (a uto) % Nucleated RBCs # /100WBC Sodium (136-145) mmol/L Potassium (3.5-5.1) mmol/L Chloride (98-107) mmol/L Carbon Dioxide (22-29) mmol/L Anion Gap (5-19) BUN (8-23) mg/dL Creatinine (0.5-0.9) mg/dL GFR Calculation (90-130) mL/min Glucose (65-115) mg/dL Calculated Osmolal ity (285-295) mOsm/k g Lactate (0.5-2.2) mmol/L Calcium (8.5-10.5) mg/dL Total Bilirubin (0.15-1.2) mg/dL AST (0-32) U/L ALT (0-33) U/L Alkaline Phosphata se (35-105) IU/L Total Protein (6.6-8.7) g/dL Albumin (3.5-5.2) g/dL Globulin (1.3-4.6) g/dL Lipase (13-60) U/L Urine Color Straw (Yellow) Urine Appearance Clear (CLEAR) Urine pH 8 H (5-7) Ur Specific Gravit y 1.010 (1.005-1.030) Urine Protein Neg (Negative) Urine Glucose (UA) Norm (Normal) Urine Ketones Negative (Negative) Urine Blood Neg (Negative) Urine Nitrate Negative (Negative) Urine Bilirubin Neg (NEGATIVE) Prot Sulfosalicyli c Acd Negative Urine Urobilinogen Norm (Negative) mg/dL Ur Leukocyte Ami ase Negative (Negative) Discharge Plan Discharge Patient Disposition: Home, Self-Care w Plan Readm Clinical Impression: Recurrent generalized abdominal pain, Gastroenteritis Condition: Stable Prescriptions: New dicyclomine 20 mg tablet 20 mg PO QID PRN (Reason: abd pain) Qty: 20 RF: 0 ondansetron 4 mg tablet,disintegrating 4 mg PO Q6H PRN (Reason: nausea and vomiting) Qty: 14 RF: 0 dicyclomine 20 mg tablet 20 mg PO QID Qty: 20 RF: 0 No Action lisinopril 10 mg tablet 10 mg PO DAILY RF: 0 Hold Instructions: Resume on 01/06/20. Follow-up with primary care provider to discuss need to continue this medication methimazole 10 mg tablet 10 mg PO DAILY RF: 0 polyethylene glycol 3350 [Miralax] 17 gram powder in packet 17 gm PO DAILY RF: 0 hydrocodone-acetaminophen 10-325 mg tablet 1 tab PO Q6H PRN (Reason: Pain) RF: 0 Probiotic (S.boulardii) 250 mg capsule 250 mg PO BID RF: 0 atenolol 50 mg tablet 50 mg PO DAILY Qty: 30 RF: 0 clopidogrel 75 mg tablet 75 mg PO DAILY Qty: 30 RF: 0 ondansetron HCl [Zofran] 4 mg tablet 4 mg PO Q6H PRN (Reason: nausea and vomiting) Qty: 10 RF: 0 pantoprazole [Protonix] 40 mg tablet,delayed release (DR/EC) 40 mg PO DAILY Qty: 30 RF: 0 sucralfate [Carafate] 1 gram tablet 1 gm PO QID Qty: 120 RF: 0 cyclobenzaprine 10 mg tablet 10 mg PO TID Qty: 30 RF: 0 sumatriptan succinate [Imitrex] 50 mg tablet 50 mg PO PRN PRN (Reason: Migraine Headache) Qty: 9 RF: 0 Referrals: Maria Gomez APN [Primary Care Provider] - Patient Instructions: Cholecystitis (ED), Abdominal Pain (ED) Discharge Date/Time: 02/05/20 19:37 Coding Level of Care Code ED Buildings And Grounds Supervisor for Judy Mcgrath
--- NOTE | 2020-02-05 15:57 | CTR_ITS ---
PROCEDURE INFORMATION: Exam: CT Abdomen And Pelvis With Contrast Exam date and time: 02/05/2020 4:04 PM Age: 70 years old Clinical indication: Abdominal pain; Generalized; Additional info: Abd pain TECHNIQUE: Imaging protocol: Computed tomography of the abdomen and pelvis with intravenous contrast. Axial, coronal and sagittal reformatted images were created and reviewed. Total DLP: 663.27 mGy-cm Radiation optimization: All CT scans at this facility use at least one of these dose optimization techniques: automated exposure control; mA and/or kV adjustment per patient size (includes targeted exams where dose is matched to clinical indication); or iterative reconstruction. Contrast material: OMNI 300; Contrast volume: 95 ml; Contrast route: LT AC; COMPARISON: CT abdomen pelvis w con* [id number] 12/30/2019 6:58 AM FINDINGS: Mediastinum: Small hiatal hernia. Liver: Unremarkable. Gallbladder and bile ducts: No radiodense gallstones. No biliary ductal dilatation. Pancreas: Unremarkable. Spleen: Status post splenectomy. Small splenules in the surgical bed. Adrenals: Unremarkable. Kidneys and ureters: Subcentimeter low-density right renal lesions, measuring up to 6 mm, too small to characterize. No radiodense calculi. No hydronephrosis. Stomach and bowel: Scattered colonic diverticula without evidence of diverticulitis. No obstruction. No bowel wall thickening. No pneumatosis. Appendix: Normal. Intraperitoneal space: No free fluid. No organized fluid collection. No free air. Vasculature: Moderate atherosclerotic disease. No aneurysm. Lymph nodes: No pathologically enlarged lymph nodes. Bladder: Unremarkable. Reproductive: Unremarkable. Bones/joints: No acute osseous abnormality. Osteopenia. Degenerative changes. Soft tissues: Several small, fat containing ventral abdominal wall hernias. CT/CT abdomen pelvis w con* [id number]: 1[address] No CT evidence of acute intra-abdominal or pelvic pathology. 2. Additional findings, as above. COMMENTS: Consistent with the [employer]'s Incidental Findings Committee white paper (J Am Mika Radiol 2018): Any incidental cystic renal lesion classified in this report as too small to characterize or simple appearing is likely a benign cyst. No follow-up imaging is recommended for these lesions per consensus recommendations based on imaging criteria. Radiation Dose CTDIVOL = (mGy): DLP = 663.27 (mGy-cm)
[2020-02-05 16:17] LABS: Basophils # 0.1 10^3/uL (0.0-0.1); Basophils % 0.5 %; Eosinophils % 0.1 %; Hematocrit 43.6 % (37.0-47.0); Hemoglobin 13.8 g/dL (11.5-15.3); Lymphocytes # 3.7 10^3/uL (0.8-4.8); Lymphocytes % 23.7 %; Mean Corpuscular HGB Conc 31.7 g/dL (30.0-36.0); Mean Corpuscular Hemoglobin 27.5 pg (28.0-34.0); Mean Corpuscular Volume 86.9 fL (81-99); Mean Platelet Volume 9.3 fL (7.4-10.4); Monocytes # 0.5 10^3/uL (0.2-0.9); Monocytes % 3.2 %; Neutrophils # 11.2 10^3/uL (1.8-7.7); Neutrophils % 72.3 %; Nucleated Red Blood Cells % 0 %; Platelet Count 458 10^3/cmm (130-400); Red Blood Count 5.02 10^6/uL (4.1-5.3); Red Cell Distribution Width 17.2 % (12.1-15.1); White Blood Count 15.5 10^3/uL (4.0-10.0)
[2020-02-05 16:30] LABS: Lactate (Lactic Acid level) 1.9 mmol/L (0.5-2.2)
[2020-02-05 16:31] LABS: Alanine Aminotransferase 9 U/L (0-33); Albumin Level 4.1 g/dL (3.5-5.2); Alkaline Phosphatase 89 IU/L (35-105); Anion Gap 18.7 (5-19); Aspartate Amino Transferase 16 U/L (0-32); Blood Urea Nitrogen 10 mg/dL (8-23); Calcium 9.7 mg/dL (8.5-10.5); Carbon Dioxide 21 mmol/L (22-29); Chloride 103 mmol/L (98-107); Globulin 3.3 g/dL (1.3-4.6); Glomerular Filtration Rate 71.3 mL/min (90-130); Glucose 174 mg/dL (65-115); Lipase 26 U/L (13-60); Osmolality Calculated 288 mOsm/kg (285-295); Potassium 3.7 mmol/L (3.5-5.1); Sodium 139 mmol/L (136-145); Total Bilirubin 0.3 mg/dL (0.15-1.2); Total Protein 7.4 g/dL (6.6-8.7)
[2020-02-05] MEDS: iohexol 300 mg/mL 100 mL Btl IV (16:57)
[2020-02-05 18:21] LABS: Add Urine Microscopic? NO
[2020-02-05] MEDS: HYDROcodone-acetaminophen 5-325 mg Tablet 1 TAB PO (18:34)
[2020-02-05] MEDS: sodium chloride 0.9% 1,000 ML 999 ML IV (18:35)
[2020-02-05 18:36] LABS: Bilirubin Urine Neg (NEGATIVE); Blood Urine Neg (Negative); Glucose Urine UA Norm (Normal); Ketones Urine Negative (Negative); Leukocyte Esterase Urine Negative (Negative); Nitrate Urine Negative (Negative); Protein Urine Neg (Negative); Sulfosalicylic Acid Urine Negative; Urine Appearance Clear (CLEAR); Urine Color Straw (Yellow); Urobilinogen Urine Norm (Negative); pH Urine 8 (5-7)
[2020-02-05 18:53] VITALS: BP 96/94; PULSE 84; RESP 18
--- NOTE | 2020-05-14 07:01 | W.ED.ABDPA2 ---
HPI - Abdominal Pain General: Chief Complaint: Abdominal Pain Stated Complaint: Abd Pain Time Seen by Provider: 02/05/20 15:51 History of Present Illness: HPI narrative: Patient states that she has had abdominal pain for over a month. She further reports that she is on a waiting list for some type of surgery secondary to a blockage . Patient states she has nausea vomiting and diarrhea now. MD elicited complaint: abdominal pain Onset (ago): month(s) Pain Consistency: constant Location: Diffuse Severity: severe Quality: cramping, aching and dull Radiation: none Migration to: no migration Exacerbating factors: movement Relieving factors: nothing Associated Symptoms: Reports diarrhea, nausea and vomiting Review of Systems General: Reports: 10 or more systems reviewed and unremarkable except in HPI and below GI: Reports: abdominal pain, nausea, vomiting and diarrhea PFS ED PFSH: Medical History Anxiety disorder Basilar artery aneurysm Constipation Dyslipidemia Elevated glucose Gastritis Hemorrhoid Hypertension Continue on atenolol, hold lisinopril until seen by primary care provider Hyperthyroidism Continue on home methimazole Insomnia Migraine Plantar fasciitis Statin intolerance Surgical History H/O section H/O splenectomy 2007 History of esophagogastroduodenoscopy (EGD) 2019 -gastritis S/P coil embolization of cerebral aneurysm 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, stent subsequently removed Status post colonoscopy 2018: Normal repeat in 10 years Family History Mother Diabetes Father Heart disease Denies family history of Anesthesia complication Bleeding disorder Social History Smoking and tobacco status: former smoker Alcohol intake: current Alcohol intake frequency: holidays/special occasions only Lives independently: Yes Household members: spouse Marital status: Current occupational status: retired Physical Exam Const: COMMON NORMALS: no acute distress, no limitations, alert and well nourished GENERAL APPEARANCE: cooperative and well developed HENMT: COMMON NORMALS: normocephalic and atraumatic HEAD & SCALP: normal to inspection, normocephalic and atraumatic Eye: GENERAL EYE: appearance normal, both eyes and all related structures Neck/C-Spine: COMMON NORMALS: full ROM, no lymphadenopathy and no meningeal signs GENERAL: Yes normal visual inspection CERVICAL SPINE: Yes cervical ROM normal and Yes normal cervical lordosis Chest: COMMONS NORMALS: normal inspection of the chest and normal palpation of entire chest wall Resp: COMMON NORMALS: normal respiratory effort, clear to auscultation bilaterally and percussion normal AUSCULTATION: clear to auscultation bilaterally PERCUSSION: percussion normal Cardio: COMMON NORMALS: regular rate, regular rhythm, S1 normal heart sound present and S2 normal heart sound present JUGULAR VENOUS DISTENTION: no JVD PALPATION: normal PMI RATE: regular rate RHYTHM: regular rhythm HEART SOUNDS: S1 normal heart sound present and S2 normal heart sound present GI: COMMON NORMALS: Soft to palpation and No hepatosplenomegaly present; negative for non-tender INSPECTION: Yes normal to inspection AUSCULTATION: Yes normoactive bowel sounds PALPATION: Yes Soft to palpation and Yes No hepatosplenomegaly present PERCUSSION: normal to percussion : COMMON NORMALS: Yes no CVA tenderness BLADDER/KIDNEY EXAM: Yes no CVA tenderness Back/Pelvis: COMMON NORMALS: no CVA tenderness, thoracic and lumbar spine normal to inspection and thoraco-lumbar ROM normal Extremity: COMMON NORMALS: normal to inspection, full ROM and capillary refill normal Neuro: SENSORIUM/ORIENTATION: Yes alert MENINGEAL SIGNS: Yes no meningeal signs Skin: COMMON NORMALS: no rashes or lesions noted, no wounds and turgor normal GENERAL SKIN EXAM: no rashes or lesions noted, elasticity normal and turgor normal LESIONS: no lesions RASHES: no rashes TRAUMA: no lacerations or abrasions HAIR: normal NAILS: normal Course Vital Signs: Vital signs: Vital Signs Temperature 97.9 F 02/05/20 15:40 Pulse Rate 84 02/05/20 18:53 Respiratory Rate 18 02/05/20 18:53 Blood Pressure 96/94 02/05/20 18:53 Pulse Oximetry 98 02/05/20 15:40 MDM - Abdominal Pain Lab Data: Labs: Lab Results 02/05/20 02/05/20 02/05/20 Range/Units 16:08 16:08 16:08 WBC 15.5 H (4.0-10.0) 10^3/ uL RBC 5.02 (4.1-5.3) 10^6/u L Hgb 13.8 (11.5-15.3) g/dL Hct 43.6 (37.0-47.0) % MCV 86.9 (81-99) fL MCH 27.5 L (28.0-34.0) pg MCHC 31.7 (30.0-36.0) g/dL RDW 17.2 H (12.1-15.1) % Plt Count 458 H (130-400) 10^3/c mm MPV 9.3 (7.4-10.4) fL Neut % (Auto) 72.3 % Lymph % (Auto) 23.7 % [place] % (Auto) 3.2 % Eos % (Auto) 0.1 % Baso % (Auto) 0.5 % Neut # (Auto) 11.2 H (1.8-7.7) 10^3/u L Lymph # (Auto) 3.7 (0.8-4.8) 10^3/u L [place] # (Auto) 0.5 (0.2-0.9) 10^3/u L Eos # (Auto) 0.0 (0.0-0.8) 10^3/u L Baso # (Auto) 0.1 (0.0-0.1) 10^3/u L Nucleated RBC % (a uto) 0 % Nucleated RBCs # 0.0 /100WBC Sodium 139 (136-145) mmol/L Potassium 3.7 (3.5-5.1) mmol/L Chloride 103 (98-107) mmol/L Carbon Dioxide 21 L (22-29) mmol/L Anion Gap 18.7 (5-19) BUN 10 (8-23) mg/dL Creatinine 0.8 (0.5-0.9) mg/dL GFR Calculation 71.3 L (90-130) mL/min Glucose 174 H (65-115) mg/dL Calculated Osmolal ity 288 (285-295) mOsm/k g Lactate 1.9 (0.5-2.2) mmol/L Calcium 9.7 (8.5-10.5) mg/dL Total Bilirubin 0.3 (0.15-1.2) mg/dL AST 16 (0-32) U/L ALT 9 (0-33) U/L Alkaline Phosphata se 89 (35-105) IU/L Total Protein 7.4 (6.6-8.7) g/dL Albumin 4.1 (3.5-5.2) g/dL Globulin 3.3 (1.3-4.6) g/dL Lipase 26 (13-60) U/L Urine Color (Yellow) Urine Appearance (CLEAR) Urine pH (5-7) Ur Specific Gravit y (1.005-1.030) Urine Protein (Negative) Urine Glucose (UA) (Normal) Urine Ketones (Negative) Urine Blood (Negative) Urine Nitrate (Negative) Urine Bilirubin (NEGATIVE) Prot Sulfosalicyli c Acd Urine Urobilinogen (Negative) mg/dL Ur Leukocyte Ami ase (Negative) 02/05/20 Range/Units 17:30 WBC (4.0-10.0) 10^3/ uL RBC (4.1-5.3) 10^6/u L Hgb (11.5-15.3) g/dL Hct (37.0-47.0) % MCV (81-99) fL MCH (28.0-34.0) pg MCHC (30.0-36.0) g/dL RDW (12.1-15.1) % Plt Count (130-400) 10^3/c mm MPV (7.4-10.4) fL Neut % (Auto) % Lymph % (Auto) % [place] % (Auto) % Eos % (Auto) % Baso % (Auto) % Neut # (Auto) (1.8-7.7) 10^3/u L Lymph # (Auto) (0.8-4.8) 10^3/u L [place] # (Auto) (0.2-0.9) 10^3/u L Eos # (Auto) (0.0-0.8) 10^3/u L Baso # (Auto) (0.0-0.1) 10^3/u L Nucleated RBC % (a uto) % Nucleated RBCs # /100WBC Sodium (136-145) mmol/L Potassium (3.5-5.1) mmol/L Chloride (98-107) mmol/L Carbon Dioxide (22-29) mmol/L Anion Gap (5-19) BUN (8-23) mg/dL Creatinine (0.5-0.9) mg/dL GFR Calculation (90-130) mL/min Glucose (65-115) mg/dL Calculated Osmolal ity (285-295) mOsm/k g Lactate (0.5-2.2) mmol/L Calcium (8.5-10.5) mg/dL Total Bilirubin (0.15-1.2) mg/dL AST (0-32) U/L ALT (0-33) U/L Alkaline Phosphata se (35-105) IU/L Total Protein (6.6-8.7) g/dL Albumin (3.5-5.2) g/dL Globulin (1.3-4.6) g/dL Lipase (13-60) U/L Urine Color Straw (Yellow) Urine Appearance Clear (CLEAR) Urine pH 8 H (5-7) Ur Specific Gravit y 1.010 (1.005-1.030) Urine Protein Neg (Negative) Urine Glucose (UA) Norm (Normal) Urine Ketones Negative (Negative) Urine Blood Neg (Negative) Urine Nitrate Negative (Negative) Urine Bilirubin Neg (NEGATIVE) Prot Sulfosalicyli c Acd Negative Urine Urobilinogen Norm (Negative) mg/dL Ur Leukocyte Ami ase Negative (Negative) Discharge Plan Discharge Patient Disposition: Home, Self-Care w Plan Readm Clinical Impression: Recurrent generalized abdominal pain, Gastroenteritis Condition: Stable Prescriptions: New dicyclomine 20 mg tablet 20 mg PO QID PRN (Reason: abd pain) Qty: 20 RF: 0 ondansetron 4 mg tablet,disintegrating 4 mg PO Q6H PRN (Reason: nausea and vomiting) Qty: 14 RF: 0 dicyclomine 20 mg tablet 20 mg PO QID Qty: 20 RF: 0 No Action lisinopril 10 mg tablet 10 mg PO DAILY RF: 0 Hold Instructions: Resume on 01/06/20. Follow-up with primary care provider to discuss need to continue this medication methimazole 10 mg tablet 10 mg PO DAILY RF: 0 polyethylene glycol 3350 [Miralax] 17 gram powder in packet 17 gm PO DAILY RF: 0 hydrocodone-acetaminophen 10-325 mg tablet 1 tab PO Q6H PRN (Reason: Pain) RF: 0 Probiotic (S.boulardii) 250 mg capsule 250 mg PO BID RF: 0 atenolol 50 mg tablet 50 mg PO DAILY Qty: 30 RF: 0 clopidogrel 75 mg tablet 75 mg PO DAILY Qty: 30 RF: 0 ondansetron HCl [Zofran] 4 mg tablet 4 mg PO Q6H PRN (Reason: nausea and vomiting) Qty: 10 RF: 0 pantoprazole [Protonix] 40 mg tablet,delayed release (DR/EC) 40 mg PO DAILY Qty: 30 RF: 0 sucralfate [Carafate] 1 gram tablet 1 gm PO QID Qty: 120 RF: 0 cyclobenzaprine 10 mg tablet 10 mg PO TID Qty: 30 RF: 0 sumatriptan succinate [Imitrex] 50 mg tablet 50 mg PO PRN PRN (Reason: Migraine Headache) Qty: 9 RF: 0 Discharge Orders: Discharge Order (Routine); Ordered 05/14/20 Ordered By: Kasi Gonzales Referrals: Maria Gomez APN [Primary Care Provider] - Patient Instructions: Cholecystitis (ED), Abdominal Pain (ED) Discharge Date/Time: 02/05/20 19:37 Coding Level of Care Code ED Installation Supervisor for Chg Fwd Exam Comprehensive
== END 2020-02-05 19:37 | disposition home or self-care, planned readmission (81) ==
PROVIDERS: Emergency Provider Family Medicine; PCP Nurse Practitioner Family
DX: K52.9 Noninfective gastroenteritis and colitis, unspecified (principal); Z79.02 Long term (current) use of antithrombotics/antiplatelets; E78.5 Hyperlipidemia, unspecified; I10 Essential (primary) hypertension; Z87.891 Personal history of nicotine dependence
CPT/HCPCS: 12345; 36415; 74177; 80053; 81003; 83605; 83690; 85025; 96360; 99282; 99283; A9270; J7030; Q9967

== ENCOUNTER 2020-06-14 14:54 | Emergency (ER) | payer MEDICARE, SELFPAY ==
[2020-06-14 15:14] VITALS: BMI 29.2
[2020-06-14 15:21] VITALS: PULSE 95; RESP 18; TEMP 36.4; O2SAT 95
--- NOTE | 2020-06-14 15:24 | PC.NURSE ---
PT REFUSED TO HAVE BLOOD PRESSURE TAKEN DURING TRIAGE AND RIPPED CUFF OFF STATES TOO TIGHT
--- NOTE | 2020-06-14 15:36 | CTR_ITS ---
PROCEDURE INFORMATION: Exam: CT Abdomen And Pelvis Without Contrast Exam date and time: 06/14/2020 3:50 PM Age: 70 years old Clinical indication: Abdominal pain; Localized; Prior surgery; Surgery date: 6+ months; Surgery type: Spleen; Patient HX: C/O lower abd pain; Additional info: Chronic abd pain TECHNIQUE: Imaging protocol: Computed tomography of the abdomen and pelvis without contrast. Radiation optimization: All CT scans at this facility use at least one of these dose optimization techniques: automated exposure control; mA and/or kV adjustment per patient size (includes targeted exams where dose is matched to clinical indication); or iterative reconstruction. COMPARISON: CT abdomen pelvis w con* [id number] 02/05/2020 4:56 PM RADIATION DOSE METRICS: Total DLP (mGy-cm): 699.36 FINDINGS: Lungs: Probable centrilobular emphysema. Liver: Normal. No mass. Gallbladder and bile ducts: Normal. No calcified stones. No ductal dilation. Pancreas: Normal. No ductal dilation. Spleen: Stable splenectomy with continued small residual splenic nodules. Adrenals: Normal. No mass. Kidneys and ureters: Normal. No hydronephrosis. Stomach and bowel: Mild colonic diverticulosis. Appendix: No evidence of appendicitis. Intraperitoneal space: Unremarkable. No free air. No significant fluid collection. Vasculature: Calcification of the abdominal aorta and/or iliac arteries consistent with atherosclerotic vessel disease. One or more calcified pelvic phleboliths. Lymph nodes: Unremarkable. No enlarged lymph nodes. Bladder: Unremarkable as visualized. Reproductive: Unremarkable as visualized. Bones/joints: Severe multilevel spine degenerative changes including degenerative disc disease, spondylosis and facet degenerative changes. Soft tissues: Unremarkable. CT/CT abdomen pelvis wo con [id number] IMPRESSION: 1. Probable centrilobular emphysema. 2. Stable splenectomy with continued small residual splenic nodules. 3. Mild colonic diverticulosis. Radiation Dose CTDIVOL = (mGy): DLP = 699.36 (mGy-cm)
[2020-06-14 15:53] LABS: Basophils # 0.1 10^3/uL (0.0-0.1); Basophils % 0.4 %; Eosinophils % 0.1 %; Hemoglobin 13.9 g/dL (11.5-15.3); Lymphocytes # 3.2 10^3/uL (0.8-4.8); Mean Corpuscular HGB Conc 30.9 g/dL (30.0-36.0); Mean Corpuscular Hemoglobin 27.6 pg (28.0-34.0); Mean Corpuscular Volume 89.3 fL (81-99); Mean Platelet Volume 9.4 fL (7.4-10.4); Monocytes # 0.4 10^3/uL (0.2-0.9); Monocytes % 2.8 %; Neutrophils # 10.76 10^3/uL (1.8-7.7); Neutrophils % 74.4 %; Nucleated Red Blood Cells % 0 %; Platelet Count 458 10^3/cmm (130-400); Red Blood Count 5.04 10^6/uL (4.1-5.3); Red Cell Distribution Width 16.7 % (12.1-15.1); White Blood Count 14.5 10^3/uL (4.0-10.0)
--- NOTE | 2020-06-14 15:54 | ED_ITS ---
HPI - Abdominal Pain General: Chief Complaint: Abdominal Pain Stated Complaint: ABD PAIN Time Seen by Provider: 06/14/20 15:17 History of Present Illness: HPI narrative: Patient presents with complaint of abdominal pain. She states that she believes she has a hernia. MD elicited complaint: abdominal pain Pertinent past history: other (Chronic abdominal pain) Onset (ago): unknown Pain Consistency: constant Location: Epigastric Severity: similar to previous episodes Quality: stabbing, aching and sharp Radiation: none Migration to: no migration Exacerbating factors: eating and movement Relieving factors: nothing Associated Symptoms: Reports belching, nausea and vomiting Review of Systems General: Reports: 10 or more systems reviewed and unremarkable except in HPI and below GI: Reports: nausea, vomiting and belching PFS ED PFSH: Medical History (Updated 06/14/20 @ 16:50 by Kasi Gonzales DO) Anxiety disorder Basilar artery aneurysm Constipation Dyslipidemia Elevated glucose Gastritis Hemorrhoid Hypertension Continue on atenolol, hold lisinopril until seen by primary care provider Hyperthyroidism Continue on home methimazole Insomnia Migraine Plantar fasciitis Statin intolerance Surgical History H/O section H/O splenectomy 2008 History of esophagogastroduodenoscopy (EGD) 2019 -gastritis S/P coil embolization of cerebral aneurysm 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, stent subsequently removed Status post colonoscopy 2018: Normal repeat in 10 years Family History Mother Diabetes Father Heart disease Denies family history of Anesthesia complication Bleeding disorder Social History Smoking and tobacco status: former smoker Alcohol intake: current Alcohol intake frequency: holidays/special occasions only Lives independently: Yes Household members: spouse Marital status: Current occupational status: retired Physical Exam Const: COMMON NORMALS: no acute distress, patient oriented x3, no limitations and alert HENMT: COMMON NORMALS: normocephalic, atraumatic, external ears normal and Normal external nose present HEAD & SCALP: normocephalic and atraumatic FACE & SINUS: normal facial exam NOSE: Normal external nose present EXTERNAL EAR: Yes external ears normal MOUTH: Normal oral and palatal mucosa present Neck/C-Spine: COMMON NORMALS: full ROM, no lymphadenopathy, supple, no meningeal signs and no JVD GENERAL: Yes normal visual inspection Resp: COMMON NORMALS: normal respiratory effort, No retractions, No use of accessory muscles and clear to auscultation bilaterally AUSCULTATION: clear to auscultation bilaterally Cardio: COMMON NORMALS: no JVD, regular rate and regular rhythm RATE: regular rate RHYTHM: regular rhythm GI: COMMON NORMALS: Normal to inspection, nondistended, normoactive bowel sounds present, Soft to palpation, non-tender, No hepatosplenomegaly present and no masses INSPECTION: Yes normal to inspection AUSCULTATION: Yes normoactive bowel sounds PALPATION: Yes Soft to palpation and Yes No hepat osplenomegaly present PERCUSSION: normal to percussion : COMMON NORMALS: Yes no CVA tenderness and Yes normal external appearance BLADDER/KIDNEY EXAM: Yes no CVA tenderness Back/Pelvis: COMMON NORMALS: no CVA tenderness, thoracic and lumbar spine normal to inspection, no thoracic nor lumbar tenderness, thoraco-lumbar ROM normal and straight leg raise negative bilaterally Extremity: COMMON NORMALS: normal to inspection, full ROM, capillary refill normal, no joint enlargement, no clubbing, cyanosis or edema, no calf tenderness and no pedal edema Neuro: COMMON NORMALS: patient oriented x3, moves all extremities, no focal motor deficits and no sensory deficits noted SENSORIUM/ORIENTATION: Yes alert MENINGEAL SIGNS: Yes no meningeal signs Psych: COMMON NORMALS: mental status grossly normal, Normal thought process present, cooperative, normal affect and speech normal SPEECH: Yes normal speech THOUGHT PROCESS: Normal thought process present Skin: COMMON NORMALS: no rashes or lesions noted, no wounds, turgor normal, no jaundice, no petechiae and no mottling GENERAL SKIN EXAM: no rashes or lesions noted and turgor normal Course Vital Signs: Vital signs: Vital Signs Temperature 97.5 F L 06/14/20 15:21 Pulse Rate 95 06/14/20 15:21 Respiratory Rate 18 06/14/20 15:21 Pulse Oximetry 95 06/14/20 15:21 MDM - Abdominal Pain Lab Data: Labs: Lab Results 06/14/20 06/14/20 06/14/20 Range/Units 15:47 15:47 15:47 WBC 14.5 H (4.0-10.0) 10^3/ uL RBC 5.04 (4.1-5.3) 10^6/u L Hgb 13.9 (11.5-15.3) g/dL Hct 45.0 (37.0-47.0) % MCV 89.3 (81-99) fL MCH 27.6 L (28.0-34.0) pg MCHC 30.9 (30.0-36.0) g/dL RDW 16.7 H (12.1-15.1) % Plt Count 458 H (130-400) 10^3/c mm MPV 9.4 (7.4-10.4) fL Neut % (Auto) 74.4 % Lymph % (Auto) 22.0 % [place] % (Auto) 2.8 % Eos % (Auto) 0.1 % Baso % (Auto) 0.4 % Neut # (Auto) 10.76 H (1.8-7.7) 10^3/u L Lymph # (Auto) 3.2 (0.8-4.8) 10^3/u L [place] # (Auto) 0.4 (0.2-0.9) 10^3/u L Eos # (Auto) 0.0 (0.0-0.8) 10^3/u L Baso # (Auto) 0.1 (0.0-0.1) 10^3/u L Nucleated RBC % (a uto) 0 % Nucleated RBCs # 0.0 /100WBC Sodium 139 (136-145) mmol/L Potassium 3.7 (3.5-5.1) mmol/L Chloride 104 (98-107) mmol/L Carbon Dioxide 24 (22-29) mmol/L Anion Gap 14.7 (5-19) BUN 13 (8-23) mg/dL Creatinine 0.8 (0.5-0.9) mg/dL GFR Calculation 71.3 L (90-130) mL/min Glucose 165 H (65-115) mg/dL Calculated Osmolal ity 288 (285-295) mOsm/k g Lactate 1.6 (0.5-2.2) mmol/L Calcium 9.0 (8.5-10.5) mg/dL Total Bilirubin 0.3 (0.15-1.2) mg/dL AST 17 (0-32) U/L ALT 9 (0-33) U/L Alkaline Phosphata se 83 (35-105) IU/L Total Protein 7.4 (6.6-8.7) g/dL Albumin 4.2 (3.5-5.2) g/dL Globulin 3.2 (1.3-4.6) g/dL Lipase 18 (13-60) U/L Discharge Plan Discharge Patient Disposition: Home Clinical Impression: Recurrent generalized abdominal pain Condition: Stable Prescriptions: No Action lisinopril 10 mg tablet 10 mg PO DAILY RF: 0 Hold Instructions: Resume on 01/06/20. Follow-up with primary care provider to discuss need to continue this medication methimazole 10 mg tablet 10 mg PO DAILY RF: 0 polyethylene glycol 3350 [Miralax] 17 gram powder in packet 17 gm PO DAILY RF: 0 hydrocodone-acetaminophen 10-325 mg tablet 1 tab PO Q6H PRN (Reason: Pain) RF: 0 Probiotic (S.boulardii) 250 mg capsule 250 mg PO BID RF: 0 atenolol 50 mg tablet 50 mg PO DAILY Qty: 30 RF: 0 clopidogrel 75 mg tablet 75 mg PO DAILY Qty: 30 RF: 0 ondansetron HCl [Zofran] 4 mg tablet 4 mg PO Q6H PRN (Reason: nausea and vomiting) Qty: 10 RF: 0 pantoprazole [Protonix] 40 mg tablet,delayed release (DR/EC) 40 mg PO DAILY Qty: 30 RF: 0 sucralfate [Carafate] 1 gram tablet 1 gm PO QID Qty: 120 RF: 0 cyclobenzaprine 10 mg tablet 10 mg PO TID Qty: 30 RF: 0 sumatriptan succinate [Imitrex] 50 mg tablet 50 mg PO PRN PRN (Reason: Migraine Headache) Qty: 9 RF: 0 dicyclomine 20 mg tablet 20 mg PO QID PRN (Reason: abd pain) Qty: 20 RF: 0 ondansetron 4 mg tablet,disintegrating 4 mg PO Q6H PRN (Reason: nausea and vomiting) Qty: 14 RF: 0 dicyclomine 20 mg tablet 20 mg PO QID Qty: 20 RF: 0 Discharge Orders: Discharge Order (Routine); Ordered 06/14/20 Ordered By: Kasi Gonzales Referrals: Maria Gomez APN [Primary Care Provider] - Patient Instructions: Cholecystitis (ED), Abdominal Pain (ED) Coding Level of Care Code ED Slime Plant Operator Helper for Chg Fwd Exam Comprehensive
[2020-06-14 16:27] LABS: Lactate (Lactic Acid level) 1.6 mmol/L (0.5-2.2)
[2020-06-14 16:28] LABS: Alanine Aminotransferase 9 U/L (0-33); Albumin Level 4.2 g/dL (3.5-5.2); Alkaline Phosphatase 83 IU/L (35-105); Anion Gap 14.7 (5-19); Aspartate Amino Transferase 17 U/L (0-32); Blood Urea Nitrogen 13 mg/dL (8-23); Carbon Dioxide 24 mmol/L (22-29); Chloride 104 mmol/L (98-107); Globulin 3.2 g/dL (1.3-4.6); Glomerular Filtration Rate 71.3 mL/min (90-130); Glucose 165 mg/dL (65-115); Lipase 18 U/L (13-60); Osmolality Calculated 288 mOsm/kg (285-295); Potassium 3.7 mmol/L (3.5-5.1); Sodium 139 mmol/L (136-145); Total Bilirubin 0.3 mg/dL (0.15-1.2); Total Protein 7.4 g/dL (6.6-8.7)
[2020-06-14] MEDS: HYDROcodone-acetaminophen 5-325 mg Tablet 2 TAB PO (17:42)
== END 2020-06-14 18:55 | disposition home or self-care (01) ==
PROVIDERS: Emergency Provider Family Medicine; PCP Nurse Practitioner Family
DX: R10.84 Generalized abdominal pain (principal); Z79.02 Long term (current) use of antithrombotics/antiplatelets; E78.5 Hyperlipidemia, unspecified; I10 Essential (primary) hypertension; Z87.891 Personal history of nicotine dependence
CPT/HCPCS: 12345; 36415; 74176; 80053; 83605; 83690; 85025; 99282; 99283

== ENCOUNTER 2021-01-26 14:25 | Outpatient (CLI) | payer MEDICARE, SELFPAY ==
--- NOTE | 2021-01-26 14:33 | XRR_ITS ---
PROCEDURE INFORMATION: Exam: XR Chest Exam date and time: 01/26/2021 2:33 PM Age: 70 years old Clinical indication: Condition or disease; Lung condition and disease; Other: Bronchitis TECHNIQUE: Imaging protocol: XR of the chest Views: 2 views. COMPARISON: CR Chest 2 views* [id number] 08/21/2019 11:09 AM FINDINGS: Lungs: There is new opacification in the left upper lobe of the lung. The right lung is clear. Pleural spaces: Unremarkable. No pleural effusion. No pneumothorax. Heart/Mediastinum: Unremarkable. No cardiomegaly. Bones/joints: Unremarkable. XR/XR chest 2V* [id number] IMPRESSION: There is new opacification in the left upper lobe of the lung suggestive of pneumonia.Clinical correlation is advised.
== END 2021-01-26 14:26 | disposition home or self-care (01) ==
PROVIDERS: PCP Nurse Practitioner Family; Visit Provider Nurse Practitioner Family
DX: J40 Bronchitis, not specified as acute or chronic (principal)
CPT/HCPCS: 71046

== ENCOUNTER 2021-03-03 13:07 | Outpatient (CLI) | payer MEDICARE, SELFPAY ==
--- NOTE | 2021-03-03 13:19 | MM_ITS ---
WS: [id number] BILATERAL SCREENING DIGITAL MAMMOGRAM WITH CAD HISTORY: SCREENING COMPARISON: 06/28/2007 Bilateral CC and MLO views submitted. Computer aided detection analyzed. Breast composition: There are scattered areas of fibroglandular density. No suspicious masses, microc alcifications or architectural distortion. MM/[place] [id number] IMPRESSION: BI-RADS: 1-Negative FOLLOW UP: 1 Year Follow-up
--- NOTE | 2021-03-03 13:50 | XR_ITS ---
WS: [id number] SCREENING DEXA SCAN [employer] CLINICAL INFORMATION: POSTMENOPAUSAL COMPARISON: None. FINDINGS: The L1-L4 bone mineral density measures 1.163 g/cm2. This corresponds to a T score score of -0.1 and Z score of 1.3. Left femoral neck bone mineral density measures 0.775 g/cm2. This corresponds to a T score of -1.9 an d Z score of -0.6. Right femoral neck bone mineral density measures 0.771 g/cm2. This corresponds to a T score -1.9of an d Z score of -0.6. Mean femoral neck bone mineral density measures 0.773 g/cm2. This corresponds to a T score of -1.9 an d Z score of -0.6. XR/XR DEXA axial skeleton* [id number] IMPRESSION: Normal bone mineralization lumbar spine. Osteopenia femoral necks. Patient's FRAX calculated 10 year probability for major osteoporotic fracture i s 24.4 % and osteoporotic hip fracture is 6.6%.
== END 2021-03-03 13:08 | disposition home or self-care (01) ==
LOC: RADSHAW 13:12
PROVIDERS: PCP Nurse Practitioner Family; Visit Provider Nurse Practitioner Family
DX: Z12.31 Encounter for screening mammogram for malignant neoplasm of breast (principal); Z78.0 Asymptomatic menopausal state
CPT/HCPCS: 77067; 77080

== ENCOUNTER 2021-03-08 11:11 | Emergency (ER) | payer MEDICARE, SELFPAY ==
[2021-03-08 11:27] VITALS: BP 145/85; PULSE 93; RESP 24; TEMP 36.8; O2SAT 97; BMI 30.2
--- NOTE | 2021-03-08 11:56 | W.ED.SOB ---
HPI - SOB/Dyspnea General: Chief Complaint: Shortness of Breath/Dyspnea Stated Complaint: COUGH, POSS PNEUMONIA Time Seen by Provider: 03/08/21 11:47 History of Present Illness: HPI Narrative: 71-year-old female presents emergency room with a history of COPD is complaining of shortness of breath and productive cough. She states she has had this for over a month she has been treated with steroids and antibiotics finished last round of antibiotics about 2 weeks ago has a productive clear mucus cough that is increased slightly. She has not had Covid that she is aware of nor has she had a Covid vaccination. She has some discomfort when she coughs into her back. She had a little low-grade subjective fever as well. She not currently on any antibiotics. MD elicited complaint: shortness of breath and cough Pertinent past history: COPD Onset (ago): month(s) Timing: constant Severity: moderate Exacerbating factors: exertion and coughing Relieving factors: rest Associated symptoms: Reports chest congestion and cough; Deny abdominal pain, chest pain, diaphoresis, dizziness, extremity pain, fever(s), hemoptysis, lightheadedness, myalgias, nausea, orthopnea, palpitations, paresthesias, polydipsia, polyuria, rash, sense of impending doom, syncope or vomiting Treatment prior to arrival: none Review of Systems Const: Denies: fever(s) or diaphoresis Eyes: Denies: change in vision or blurry vision ENMT: Denies: throat pain, oral sores, dental pain, nasal discharge or nasal congestion Card: Denies: chest pain, palpitations, lightheadedness, syncope or orthopnea Resp: Reports: chest congestion; Denies: hemoptysis GI: Denies: abdominal pain, nausea or vomiting : Denies: flank pain, dysuria, urinary frequency, urinary urgency, urinary incontinence or hematuria Musc: Denies: extremity pain Skin/Breast: Denies: rash, pruritus or erythema Neuro: Denies: dizziness Psych: Denies: anxiety, depression, loss of interest, visual hallucinations, auditory hallucinations, suicidal ideation or homicidal ideation Endo: Denies: polyuria Ike/Lymph: Denies: easy bruising, easy bleeding, petechiae, enlarged lymph nodes or tender lymph nodes [facility] ED PFSH: Medical History (Updated 03/08/21 @ 14:53 by Jayden Otero DO) Anxiety disorder Basilar artery aneurysm Constipation Dyslipidemia Elevated glucose Gastritis Hemorrhoid Hypertension Continue on atenolol, hold lisinopril until seen by primary care provider Hyperthyroidism Continue on home methimazole Insomnia Migraine Plantar fasciitis Statin intolerance Surgical History H/O section H/O splenectomy 2008 History of esophagogastroduodenoscopy (EGD) 2019 -gastritis S/P coil embolization of cerebral aneurysm 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, stent subsequently removed Status post colonoscopy 2018: Normal repeat in 10 years Family History Mother Diabetes Father Heart disease Denies family history of Anesthesia complication Bleeding disorder Social History Smoking and tobacco status: former smoker Alcohol intake: current Alcohol intake frequency: holidays/special occasions only Lives independently: Yes Household members: spouse Marital status: Current occupational status: retired Physical Exam Const: COMMON NORMALS: no acute distress GENERAL APPEARANCE: cooperative and comfortable ORIENTATION/CONSCIOUSNESS: Yes awake, Yes oriented to person, Yes oriented to place and Yes oriented to time HENMT: COMMON NORMALS: normocephalic, atraumatic and hearing grossly normal bilaterally HEAD & SCALP: normocephalic and atraumatic Neck/C-Spine: COMMON NORMALS: no JVD Resp: COMMON NORMALS: normal respiratory effort, No retractions, No use of accessory muscles and clear to auscultation bilaterally AUSCULTATION: clear to auscultation bilaterally Cardio: COMMON NORMALS: no JVD, regular rate, regular rhythm and No murmurs present (Cardio) RATE: regular rate RHYTHM: regular rhythm GI: COMMON NORMALS: Soft to palpation and No hepatosplenomegaly present AUSCULTATION: Yes normoactive bowel sounds PALPATION: Yes Soft to palpation, No Tenderness to palpation present (GI), No Guarding due to palpation present (GI) and Yes No hepatosplenomegaly present Extremity: COMMON NORMALS: normal to inspection, capillary refill normal, no clubbing, cyanosis or edema, no calf tenderness and no pedal edema Neuro: SENSORIUM/ORIENTATION: Yes oriented to person, Yes oriented to place and Yes oriented to time Skin: COMMON NORMALS: no rashes or lesions noted GENERAL SKIN EXAM: no rashes or lesions noted Course Vital Signs: Vital signs: Vital Signs Temperature 98.2 F 03/08/21 11:27 Pulse Rate 96 03/08/21 15:07 Respiratory Rate 26 H 03/08/21 15:07 Blood Pressure 154/101 03/08/21 15:07 Pulse Oximetry 94 03/08/21 15:07 MDM - SOB/Dyspnea MDM Narrative: Medical decision making narrative: Chest x-ray shows left upper lobe mass. Postobstructive pneumonia present will be referred to pulmonology for further evaluation of this for an little broader spectrum antibiotics at this point no think she requires hospitalization her sats are maintaining. Continue her other medications. Return if has problems. Lab Data: Labs: Lab Results 03/08/21 03/08/21 03/08/21 Range/Units 12:22 12:25 12:25 WBC 19.2 H (4.0-10.0) 10^3/ uL RBC 4.55 (4.1-5.3) 10^6/u L Hgb 12.4 (11.5-15.3) g/dL Hct 38.8 (37.0-47.0) % MCV 85.3 (81-99) fL MCH 27.3 L (28.0-34.0) pg MCHC 32.0 (30.0-36.0) g/dL RDW 17.4 H (12.1-15.1) % Plt Count 551 H (130-400) 10^3/c mm MPV 9.2 (7.4-10.4) fL Neut % (Auto) 67.1 % Lymph % (Auto) 21.5 % [place] % (Auto) 10.0 % Eos % (Auto) 0.2 % Baso % (Auto) 0.5 % Neut # (Auto) 12.88 H (1.8-7.7) 10^3/u L Lymph # (Auto) 4.1 (0.8-4.8) 10^3/u L [place] # (Auto) 1.9 H (0.2-0.9) 10^3/u L Eos # (Auto) 0.0 (0.0-0.8) 10^3/u L Baso # (Auto) 0.1 (0.0-0.1) 10^3/u L Nucleated RBC % (a uto) 0 % Nucleated RBCs # 0.0 /100WBC Specimen Type Arterial Sample Site Radial, left ABG pH 7.47 H (7.35-7.45) ABG pCO2 32.6 L (35-45) mmHg ABG pO2 60.5 L (80.0-100.0) mmH g ABG HCO3 23.8 (22-26) mmol/L ABG O2 Saturation 93.6 ABG Base Excess 0.7 (-2.0-2.0) mmol/ L [place] Test Pos A-a O2 Gradient 6.3 (5-10) mmHg Hematocrit 38.4 (37-47) % Hgb O2 Saturation 91.5 L (95-100) % Carboxyhemoglobin 1.4 (0.4-20.1) %THgb Methemoglobin 0.9 (0.4-1.5) % Total Hemoglobin 12.5 (12-16) g/dL Sodium 138.0 136 (131-143) mmol/L Potassium 3.4 L 3.5 (3.5-5.0) mmol/L Glucose 110.0 105 (70-115) mg/dL Ionized Calcium 1.2 (1.1-1.4) mmol/L O2 Delivery Device Room air FiO2 21.0 % Senior Integration Architect ID [place] Chloride 99 (98-107) mmol/L Carbon Dioxide 22 (22-29) mmol/L Anion Gap 18.5 (5-19) BUN 13 (8-23) mg/dL Creatinine 0.8 (0.5-0.9) mg/dL GFR Calculation 71.1 L (90-130) mL/min Calculated Osmolal ity 282 L (285-295) mOsm/k g Calcium 8.9 (8.5-10.5) mg/dL Total Bilirubin 0.6 (0.15-1.2) mg/dL AST 12 (0-32) U/L ALT 8 (0-33) U/L Alkaline Phosphata se 84 (35-105) IU/L Total Protein 7.5 (6.6-8.7) g/dL Albumin 3.9 (3.5-5.2) g/dL Globulin 3.6 (1.3-4.6) g/dL Nasal/Oral COVID-1 9 PCR SARS-CoV-2 Ag (Rap id) (Negative) 03/08/21 03/08/21 Range/Units 12:40 13:12 WBC (4.0-10.0) 10^3/ uL RBC (4.1-5.3) 10^6/u L Hgb (11.5-15.3) g/dL Hct (37.0-47.0) % MCV (81-99) fL MCH (28.0-34.0) pg MCHC (30.0-36.0) g/dL RDW (12.1-15.1) % Plt Count (130-400) 10^3/c mm MPV (7.4-10.4) fL Neut % (Auto) % Lymph % (Auto) % Adair % (Auto) % Eos % (Auto) % Baso % (Auto) % Neut # (Auto) (1.8-7.7) 10^3/u L Lymph # (Auto) (0.8-4.8) 10^3/u L [place] # (Auto) (0.2-0.9) 10^3/u L Eos # (Auto) (0.0-0.8) 10^3/u L Baso # (Auto) (0.0-0.1) 10^3/u L Nucleated RBC % (a uto) % Nucleated RBCs # /100WBC Specimen Type Sample Site ABG pH (7.35-7.45) ABG pCO2 (35-45) mmHg ABG pO2 (80.0-100.0) mmH g ABG HCO3 (22-26) mmol/L ABG O2 Saturation ABG Base Excess (-2.0-2.0) mmol/ L Berlin Test A-a O2 Gradient (5-10) mmHg Hematocrit (37-47) % Hgb O2 Saturation (95-100) % Carboxyhemoglobin (0.4-20.1) %THgb Methemoglobin (0.4-1.5) % Total Hemoglobin (12-16) g/dL Sodium (131-143) mmol/L Potassium (3.5-5.0) mmol/L Glucose (70-115) mg/dL Ionized Calcium (1.1-1.4) mmol/L O2 Delivery Device FiO2 % Senior Integration Architect ID Chloride (98-107) mmol/L Carbon Dioxide (22-29) mmol/L Anion Gap (5-19) BUN (8-23) mg/dL Creatinine (0.5-0.9) mg/dL GFR Calculation (90-130) mL/min Calculated Osmolal ity (285-295) mOsm/k g Calcium (8.5-10.5) mg/dL Total Bilirubin (0.15-1.2) mg/dL AST (0-32) U/L ALT (0-33) U/L Alkaline Phosphata se (35-105) IU/L Total Protein (6.6-8.7) g/dL Albumin (3.5-5.2) g/dL Globulin (1.3-4.6) g/dL Nasal/Oral COVID-1 9 PCR Not detected SARS-CoV-2 Ag (Rap id) Negative (Negative) Discharge Plan Discharge Patient Disposition: Home Clinical Impression: Postobstructive pneumonia, Mass of left lung Condition: Stable Prescriptions: New Medrol (Markos) 4 mg tablets,dose pack See Rx Instructions .ROUTE .COMPLEX Qty: 21 RF: 0 levofloxacin 500 mg tablet 500 mg PO DAILY 7 Days RF: 0 No Action lisinopril 10 mg tablet 10 mg PO DAILY@20 RF: 0 Hold Instructions: Resume on 01/06/20. Follow-up with primary care provider to discuss need to continue this medication methimazole 10 mg tablet 10 mg PO DAILY@20 RF: 0 polyethylene glycol 3350 [Miralax] 17 gram powder in packet 17 gm PO DAILY@08 RF: 0 sucralfate [Carafate] 1 gram tablet 1 gm PO QID Qty: 120 RF: 0 sumatriptan succinate [Imitrex] 50 mg tablet 50 mg PO PRN PRN (Reason: Migraine Headache) Qty: 9 RF: 0 calcium 600 mg Capsule 600 mg PO DAILY RF: 0 sumatriptan succinate 100 mg tablet 100 mg PO BID PRN (Reason: Migraine Headache) RF: 0 ProAir HFA 90 mcg/actuation Hfa Aerosol Inhaler 2 puff INHALATION Q4H PRN (Reason: Shortness Of Breath) RF: 0 Vitamin D3 25 mcg (1,000 unit) Capsule 25 mcg PO DAILY@20 RF: 0 Taue-Csay-Ukfqr (PABA) 3-133 mg-mcg Capsule 2 cap PO DAILY RF: 0 Benefiber Healthy Shape 5 gram/7.4 gram Powder See Rx Instructions .ROUTE .COMPLEX RF: 0 Probiotic 2 tab PO DAILY RF: 0 clopidogrel 75 mg tablet 75 mg PO DAILY@20 RF: 0 Protonix 40 mg tablet,delayed release (DR/EC) 40 mg PO BID RF: 0 atenolol 50 mg tablet 50 mg PO DAILY@20 RF: 0 Discharge Orders: Discharge ED (Routine); Ordered 03/11/21 Ordered By: Jayden Otero Referrals: Maria Gomez APN [Primary Care Provider] - Patient Instructions: Opioid Safety Coding Level of Care Code ED Building Maintenance Mechanic for Judy Mcgrath
--- NOTE | 2021-03-08 11:58 | ECG_ITS ---
[facility] Test Date: 2021-03-08 Pat Name: May Cummings Department: Room: Gender: Female Commercial Center Manager: : 1950 Requested By: Jayden Verduzco Order Number: [id number] Lev MD: Lashonda Brantley M.D. Measurements Intervals [place] Rate: 86 P: 65 TX: 159 QRS: 80 QRSD: 72 T: 81 QT: 375 QTc: 450 Interpretive Statements SINUS RHYTHM Compared to ECG 12/30/2019 09:58:47 Sinus bradycardia no longer present T-wave abnormality no longer present Electronically Signed On 03-09-2021 12:20:57 CDT by Lashonda Brantley M.D. [id number]
--- NOTE | 2021-03-08 11:58 | XRR_ITS ---
PROCEDURE INFORMATION: Exam: XR Chest Exam date and time: 03/08/2021 12:04 PM Age: 71 years old Clinical indication: Cough and dyspnea and shortness of breath; Type not specified; Patient HX: SOB, cough, chest pain x 1 month; Additional info: Dyspnea/cough TECHNIQUE: Imaging protocol: XR of the chest. Views: 1 view. COMPARISON: CR XR chest 2V* [id number] 01/26/2021 2:38 PM FINDINGS: Lungs: There is increased prominence and enlargement of the left suprahilar/upper lobe opacity since previous chest x-ray. An enlarging hilar mass must be considered. A CT scan of the chest is advised for further evaluation. The right lung is clear. Pleural spaces: Unremarkable. No pleural effusion. No pneumothorax. Heart/Mediastinum: Unremarkable. No cardiomegaly. Bones/joints: Unremarkable. XR/XR chest 1V portable [id number] IMPRESSION: Enlarging left suprahilar and upper lobe opacity. A CT scan of the chest is advised to exclude a possible hilar or upper lobe mass.
[2021-03-08] MEDS: albuterol 8 gm MDI 2 PUFF INHALATION (12:16)
[2021-03-08 12:18] VITALS: PULSE 85; RESP 20; O2SAT 95
[2021-03-08 12:22] VITALS: PULSE 89
--- NOTE | 2021-03-08 12:30 | CT_ITS ---
WS: [id number] CTA OF THE CHEST WITH PULMONARY EMBOLISM PROTOCOL TECHNIQUE: High-resolution contrast enhanced CTA of the chest with coronal and sagittal reformatted i mages with pulmonary embolism protocol. MIP images are also reviewed. CLINICAL INFORMATION: chest pain, dyspnea DLP: 615.[address] scans at [facility] use at least one of these dose optimization techniques: automat ed exposure control; mA and/or kV adjustment per patient size (includes targeted exams where dose is matched to clinical indication); or iterative reconstruction. FINDINGS: Proximal main pulmonary arteries are normal. Segmental and subsegmental pulmonary arteries are patent . No evidence of pulmonary embolus. Normal caliber thoracic aorta. Left hilar soft tissue mass with obstruction of the distal left mainstem bronchus and consolidation i nvolving the anterior left upper lobe. Soft tissue mass at the left hilum measures 2.9 x 1.8 x 1.3 CM . Associated enlarged AP window and left hilar lymph nodes. Enlarged subcarinal lymph nodes. Consolidation of the anterior medial left upper lobe with interstitial thickening and patchy infiltra cristy extending into the apical segment left upper lobe. Opacification worse about the left hilum and a nterior mediastinum. Advanced chronic emphysematous changes. No axillary lymphadenopathy. Adrenal glands are normal. Small esophageal hiatal hernia. CT/CT angio chest PE protcl [id number] IMPRESSION: 1. No evidence for pulmonary embolus. 2. Left hilar and suprahilar soft tissue mass suspicious for neoplasm. This me asures approximately 1.8 x 1.3 cm with obstruction opacification of the left di stal main stem bronchus and left upper lobe bronchus. 3. Consolidation involving the anterior medial left upper lobe with interstiti al infiltrates in the left upper lobe likely due to postobstructive pneumonia. Lymphangitic metastasis is not excluded. 4. Prominent suspicious AP window and left hilar and subcarinal lymph nodes. N umerous normal sized peribronchial lymph nodes. 5. Moderate to advanced chronic emphysematous changes. Notified Jayden Otero DO at 03/08/2021 2:35 PM.
--- NOTE | 2021-03-08 12:31 | PC.NURSE ---
LABS DRAWN OFF IV SITE.
[2021-03-08 12:35] LABS: ABG PCO2 32.6 mmHg (35-45); ABG PH Result 7.47 (7.35-7.45); Alveolar-Arterial Oxygen Gradi 6.3 mmHg (5-10); Arterial Blood Gas Hematocrit 38.4 % (37-47); Base Excess ABG 0.7 mmol/L (-2.0-2.0); Blood Gas Allen Test Pos; Blood Gas Operator Identificat MONRO; Blood Gas Sample Site Radial, left; Blood Gas Sample Type Arterial; Carboxyhemoglobin 1.4 %THgb (0.4-20.1); HCO3 ABG 23.8 mmol/L (22-26); HGB O2 Sat 91.5 % (95-100); Ionized Calcium Level - ABG 1.2 mmol/L (1.1-1.4); Methemoglobin 0.9 % (0.4-1.5); Oxygen Device ROOM AIR; Oxygen Saturation ABG 93.6; PO2 ABG 60.5 mmHg (80.0-100.0); Potassium Level - ABG 3.4 mmol/L (3.5-5.0); Total Hemoglobin 12.5 g/dL (12-16)
[2021-03-08] MEDS: dexamethasone 10 mg/mL INJ IM (12:45)
[2021-03-08 12:54] LABS: Basophils # 0.1 10^3/uL (0.0-0.1); Basophils % 0.5 %; Eosinophils % 0.2 %; Hematocrit 38.8 % (37.0-47.0); Hemoglobin 12.4 g/dL (11.5-15.3); Lymphocytes # 4.1 10^3/uL (0.8-4.8); Lymphocytes % 21.5 %; Mean Corpuscular Hemoglobin 27.3 pg (28.0-34.0); Mean Corpuscular Volume 85.3 fL (81-99); Mean Platelet Volume 9.2 fL (7.4-10.4); Monocytes # 1.9 10^3/uL (0.2-0.9); Neutrophils # 12.88 10^3/uL (1.8-7.7); Neutrophils % 67.1 %; Nucleated Red Blood Cells % 0 %; Platelet Count 551 10^3/cmm (130-400); Red Blood Count 4.55 10^6/uL (4.1-5.3); Red Cell Distribution Width 17.4 % (12.1-15.1); White Blood Count 19.2 10^3/uL (4.0-10.0)
[2021-03-08 13:00] LABS: Alanine Aminotransferase 8 U/L (0-33); Albumin Level 3.9 g/dL (3.5-5.2); Alkaline Phosphatase 84 IU/L (35-105); Anion Gap 18.5 (5-19); Aspartate Amino Transferase 12 U/L (0-32); Blood Urea Nitrogen 13 mg/dL (8-23); Calcium 8.9 mg/dL (8.5-10.5); Carbon Dioxide 22 mmol/L (22-29); Chloride 99 mmol/L (98-107); Globulin 3.6 g/dL (1.3-4.6); Glomerular Filtration Rate 71.1 mL/min (90-130); Glucose 105 mg/dL (65-115); Osmolality Calculated 282 mOsm/kg (285-295); Potassium 3.5 mmol/L (3.5-5.1); Sodium 136 mmol/L (136-145); Total Bilirubin 0.6 mg/dL (0.15-1.2); Total Protein 7.5 g/dL (6.6-8.7)
[2021-03-08 13:16] LABS: SARS Covid-2 Antigen Negative (Negative)
--- NOTE | 2021-03-08 13:45 | PC.PHAR ---
PT STATES SHE TAKES CARE OF HER OWN MEDICATIONS-PT STATES SHE TOOK CYMBALTA 60MG FOR THE FIRST TIME ON Monday03/05/21 AND STATES SHE IS NEVER GOING TO TAKE IT AGAIN-PT STATES SHE GOT DIZZY NAUSEATED FROM TAKING CYMBALTA-
[2021-03-08] MEDS: iohexol 350 mg/mL 100 mL Btl IV (14:05)
[2021-03-08 15:07] VITALS: BP 154/101; PULSE 96; RESP 26; O2SAT 94
[2021-03-09 14:23] LABS: Coronavirus Test Green County Not Detected
--- NOTE | 2021-03-09 16:59 | PC.NURSE ---
Patient notified of COVID results at this time.
--- NOTE | 2021-03-11 14:40 | DCPLANNER ---
junior account manager had message to schedule a follow up appointment for patient with pulmonology. junior account manager called [facility], spoke with Tami, gave clinic patients information. A follow up appointment was scheduled for Sunday, March 07, 2021 at 9:30. junior account manager called patients and gave him the appointment information. Patients asked if complex case manager could send the appointment information in the mail for patient. junior account manager mailed patient the appointment information.
--- NOTE | 2021-06-09 07:20 | DCPLANNER ---
Patient had a follow up appointment scheduled for 03.17.21 with Pulmonology at [facility] - patient did attend appointment.
== END 2021-03-08 15:08 | disposition home or self-care (01) ==
PROVIDERS: Emergency Provider Family Medicine; PCP Nurse Practitioner Family
DX: J18.8 Other pneumonia, unspecified organism (principal); R91.8 Other nonspecific abnormal finding of lung field; Z79.02 Long term (current) use of antithrombotics/antiplatelets; E78.5 Hyperlipidemia, unspecified; I10 Essential (primary) hypertension; Z87.891 Personal history of nicotine dependence
CPT/HCPCS: 36600; 71045; 71275; 80051; 80053; 82330; 82805; 85025; 87070; 87077; 87186; 87205; 87426; 87635; 93005; 94640; 96372; 99284; J1100; J3535; Q9967

== ENCOUNTER → 2021-03-22 13:08 | Outpatient (BNVA) | payer MEDICARE, SELFPAY | PROVIDERS: PCP Nurse Practitioner Family; Visit Provider Internal Medicine Pulmonary Disease | DX: Z20.822 Contact with and (suspected) exposure to COVID-19 (principal); R91.8 Other nonspecific abnormal finding of lung field; J43.2 Centrilobular emphysema | CPT/HCPCS: 87635 ==

== ENCOUNTER 2021-03-26 06:05 | Day surgery (SDC) | payer MEDICARE, SELFPAY ==
[2021-03-26] VITALS (12 sets, daily range): BP systolic 99–158; BP diastolic 58–114; PULSE 61–93; RESP 17–22; TEMP 36.1–36.9; O2SAT 92–97
[2021-03-26] MEDS: sodium chloride 0.9% 1,000 ML 30 ML IV (07:02)
--- NOTE | 2021-03-26 08:04 | ANES.PREANE2 ---
Pre-Anesthetic Assessment Pre-Anesthetic Assessment: Height/Weight: Height 1.55 m Weight 72.121 kg Temp Pulse Resp BP Pulse Ox 98.4 F 61 18 143/94 97 03/26/21 06:42 03/26/21 06:42 03/26/21 06:42 03/26/21 06:42 03/26/21 06:42 Preop Diagnosis: Suspected Lung Cancer Proposed Procedure: Operation Date: 03/26/21 07:30 Proposed Procedures p Ebus [id number] R91.8(Not Applicable) - Alfredo Mercado MD Was Beta Carmen taken within 24 hours: Yes Was Clonidine taken within 24 hours: N/A Last intake: Intake Last Liquid Date 03/26/21 Last Liquid Time 05:30 Last Solid Date 03/25/21 Last Solid Time 17:00 Social: Social History: Tobacco and No alcohol Exam: Pre-Anes Outpt Exam: alert, oriented x 3 and regular rate & rhythm Airway: Submandibular: WNL Cervical ROM: WNL MP: 2 Dentition: False CV/HEM: CV/HEM: HTN GI: GI: GERD Metabolic: Metabolic: Morbid obesity Neuropsych: Comments: Basilar artery aneurysm Anesthetic Plan: ASA status: 3 Anesthesia: General Risk of > 500 ml blood loss (7ml/kg in children): No Meds/Allergies Current Medications: Current Medications Generic Name Dose Route Start Last Admin Trade Name Freq PRN Reason Stop Dose Admin Sodium Chloride 1,000 mls @ 30 ml s/hr 03/26/21 06:30 03/26/21 07:02 Sodium Chloride 0.9% IV 03/27/21 06:29 30 mls/hr .Q24H MARIANO Administration PFSH Anesthesia PFSH: Medical History (Updated 03/26/21 @ 06:51 by Alfredo Mercado MD) Anxiety disorder Basilar artery aneurysm Constipation Dyslipidemia Elevated glucose Gastritis Hemorrhoid Hypertension Continue on atenolol, hold lisinopril until seen by primary care provider Hyperthyroidism Continue on home methimazole Insomnia Migraine Plantar fasciitis Statin intolerance Surgical History H/O section H/O splenectomy 2007 History of esophagogastroduodenoscopy (EGD) 2019 -gastritis S/P coil embolization of cerebral aneurysm 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, stent subsequently removed Status post colonoscopy 2018: Normal repeat in 10 years Family History Mother Diabetes Father Heart disease Denies family history of Anesthesia complication Bleeding disorder Social History (Updated 03/17/21 @ 11:34 by Fede Jones LPN) Smoking and tobacco status: former smoker Quit status (tobacco): has quit using tobacco Year quit tobacco: 2017 [id number] Second hand smoke exposure: No Smoking risk assessment/counseling performed?: Yes Alcohol intake: current Alcohol intake frequency: holidays/special occasions only Lives independently: Yes Household members: spouse Marital status: service: No Current occupational status: retired Pets and animals: Yes History of recent travel: No Current gender identity: Female Data Anesthesia Cardiac Studies: No Data to Display
--- NOTE | 2021-03-26 08:36 | W.PM.OPSFHP ---
Same Day Surgery H&P Indication for Procedure/HPI DATE OF PROCEDURE: March 26, 2021 CHIEF COMPLAINT/INDICATIONFOR SURGICAL PROCEDURE: 71-year-old lady coming in for bronchoscopic evaluation for suspected lung cancer The patient carries a past medical history of COPD, hypothyroidism, hypertension and basilar artery aneurysm who presented to the emergency department in February 2021 with shortness of breath. CT scan of the chest revealed left hilar mass and postobstructive pneumonia PREOP DIAGNOSIS: Suspected Lung Cancer PLANNED PROCEDRUE: Bronchoscopy with inspection of the airway, possible endobronchial biopsy, bronchial Cytobrush, endobronchial sound guided transbronchial needle aspiration of lymph nodes, bronchoalveolar lavage and control of bleeding. Operation Date: 03/26/21 07:30 Proposed Procedures p Ebus [id number] R91.8(Not Applicable) - Alfredo Lyons DatarMD Medications/Allergies* Home Medications Medication Instructions Recorded Confirmed Type lisinopril 10 mg tablet 10 mg PO DAILY@20 tab 11/19/19 03/24/21 History methimazole 10 mg tablet 10 mg PO DAILY@20 tab 11/19/19 03/24/21 History polyethylene glycol 3350 17 gram 17 gm PO DAILY@08 each 11/19/19 03/24/21 History oral powder packet Probiotic 2 tab PO DAILY 03/08/21 03/24/21 History albuterol sulfate [ProAir HFA] 2 puff INHALATION Q4H PRN 03/08/21 03/26/21 History atenolol 50 mg PO DAILY@20 03/08/21 03/24/21 History calcium 600 mg PO DAILY 03/08/21 03/24/21 History cholecalciferol (vitamin D3) 25 mcg PO DAILY@20 03/08/21 03/24/21 History [Vitamin D3] clopidogrel 75 mg PO DAILY@20 03/08/21 03/24/21 History mv,Ca,ir,Um-MO-foa-gel-patty-PAB 2 cap PO DAILY 03/08/21 03/24/21 History [Abnh-Ydpk-Zjovw (PABA)] pantoprazole [Protonix] 40 mg PO BID 03/08/21 03/24/21 History sumatriptan succinate 100 mg PO BID PRN 03/08/21 03/26/21 History wheat dextrin [Benefiber Healthy See Rx Instructions .ROUTE .COMPLEX 03/08/21 03/24/21 History Shape] cyclobenzaprine 10 mg tablet 10 mg PO TID 03/17/21 03/26/21 History dicyclomine 20 mg PO TID PRN 03/26/21 03/26/21 History Allergies/Adverse Reactions Allergy/AdvReac Type Severity Reaction Status Date / Time No Known Allergies Allergy Verified 03/26/21 06:38 Current Medications: Generic Name Dose Route Start Last Admin Trade Name Freq PRN Reason Stop Dose Admin Sodium Chloride 1,000 mls @ 30 mls/hr 03/26/21 06:30 03/26/21 07:02 Sodium Chloride 0.9% IV 03/27/21 06:29 30 mls/hr .Q24H MARIANO Administration Pertinent History/Comorbid Conditions* Medical History (Updated 03/26/21 @ 06:51 by Alfredo Mercado MD) Anxiety disorder Basilar artery aneurysm Constipation Dyslipidemia Elevated glucose Gastritis Hemorrhoid Hypertension Continue on atenolol, hold lisinopril until seen by primary care provider Hyperthyroidism Continue on home methimazole Insomnia Migraine Plantar fasciitis Statin intolerance Surgical History (Updated 12/30/19 @ 09:08 by Bela Duggan DO) H/O section H/O splenectomy 2007 History of esophagogastroduodenoscopy (EGD) 2019 -gastritis S/P coil embolization of cerebral aneurysm 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, stent subsequently removed Status post colonoscopy 2018: Normal repeat in 10 years Family History (Updated 11/25/19 @ 15:06 by Maxine Sheth LPN) Diabetes Mother Heart disease Father Denies family history of Anesthesia complication Bleeding disorder Social History Smoking and tobacco status: former smoker Quit status (tobacco): has quit using tobacco Year quit tobacco: 2016 [id number] Second hand smoke exposure: No Smoking risk assessment/counseling performed?: Yes Alcohol intake: current Alcohol intake frequency: holidays/special occasions only Lives independently: Yes Household members: spouse Marital status: service: No Current occupational status: retired Pets and animals: Yes History of recent travel: No Current gender identity: Female Pertinent Exam Findings alert, oriented x 3 and regular rate & rhythm Rhonchi in the left anterior chest Recommendations Surgery/Procedure today Coding Level of Care Code Acute Freedom Of Information Officer for Judy Mcgrath
[2021-03-26] MEDS: lidocaine 2% viscous 15 mL UDC TOPICAL ×2 (09:33→09:34)
--- NOTE | 2021-03-26 10:38 | PM.OP ---
Operative Report Date of procedure: March 26, 2021 Pre-op Diagnosis: Suspected Lung Cancer Post-op diagnosis: same Brief History: This is a 71-year-old lady coming in for evaluation of lung cancer after recent CT scan found left hilar lesion. Procedure: Name of the procedure: Bronchoscopy with inspection of the airway, endobronchial biopsy, bronchoalveolar lavage, endobronchial ultrasound-guided transbronchial needle aspiration of lymph nodes and control of bleeding. Indication: Left perihilar mass Anesthesia: General anesthesia. Local anesthesia: The cullen in the right and left mainstem bronchi were anesthetized with 1% lidocaine, 3 mL. Description of the procedure: The procedure was explained to the patient and the consent was obtained. The patient was brought to the OR. The patient underwent endotracheal intubation for general anesthesia. Following induction of general anesthesia, the bronchoscope was advanced through the ET tube. The lower trachea appeared to be normal. The cullen was sharp. The cullen, the right and left mainstem bronchi are anesthetized with 1% lidocaine. In a systematic manner bilateral bronchial tree was then examined. The bronchoscope was advanced into the left mainstem bronchus. Endobronchial lesion with pearly white appearance was seen occluding the entrance of the left upper lobe bronchus. Left lobe bronchus was patent. The left lower lobe bronchi were examined up to the third subsegmental level and no abnormalities were identified. The bronchoscope was then introduced into the right mainstem bronchus. The right upper lobe, right middle lobe and right lower lobe bronchi were examined up to the third subsegmental level and no abnormalities were identified. There was mucoid secretions throughout the airways. Endobronchial biopsies were performed from the left upper lobe endobronchial lesion. Bronchoalveolar lavage was performed from the left upper lobe. The endobronchial ultrasound was introduced through the ET tube. No significant hilar or mediastinal lymphadenopathy was identified. Transbronchial needle aspiration was obtained from station 7 and 10 L lymph nodes. Samples: 1. Bronchoalveolar lavage specimen was sent for from stain and culture. Also sent for cytology. 2. The endobronchial biopsies are sent for histopathology. 3. The transbronchial needle aspiration of the aforementioned lymph node groups were sent for histopathology. Complications: There was no immediate complications.
[2021-03-26] MEDS: ipratropium 0.5 mg/2.5 mL Neb INHALATION (11:17)
--- NOTE | 2021-03-26 11:36 | SUR.PREOP ---
1120: patient states she feels like she can't get a breath. sat at 3L O2 is at 93%. O2 turned up to 4L. 1121: Simple mask applied with O2 at 10L. Sat is 96%. Patient still says she feels like she can't breathe or get a breath. 1123: Patient getting duoneb treatment. 1132: patient placed back on NC at 3L. She still says she feels like she is having a hard time breathing through her throat but her effort is better than previously. Sat at 94%
[2021-03-26] MEDS: sodium chloride 0.9% 500 ML 999 ML IV (12:00)
[2021-03-26] MEDS: glycopyrrolate 0.2 mg/mL SDV 2 mL 0.4 MG (12:02)
[2021-03-26] MEDS: dexamethasone 4 mg/mL INJ IVP (12:11)
--- NOTE | 2021-03-26 12:13 | SUR.PHASEII ---
doctor Dalton informed of patient's condition. Patient evaluated by doctor Dalton. IV meds given. Patient closely monitored.
--- NOTE | 2021-03-26 12:20 | SUR.PHASEII ---
Faint stridor noted.
[2021-03-26] MEDS: ipratropium 0.5 mg/2.5 mL Neb (12:32)
--- NOTE | 2021-03-26 12:36 | SUR.PHASEII ---
patient currently receiving duoneb
--- NOTE | 2021-03-26 14:02 | SUR.PHASEII ---
PATIENT RE-EVALUATED BY DOCTOR CARIDAD. PATIENT STATES SHE FEELS BETTER. NO STRIDOR NOTED.
--- NOTE | 2021-03-26 15:41 | ANE.PACU2 ---
Inpatient post-anesthesia follow up: Airway intact: Yes Vital signs: Temperature 97.8 F Pulse Rate 82 Respiratory Rate 18 Blood Pressure 112/75 Pulse Oximetry 92 Oxygen Delivery Me thod Room Air Oxygen Flow Rate 3 Fraction of Inspir ed Oxygen Hydration adequate: Yes Nausea and vomiting: No Pain level: 2 Mental status: Baseline Additional Comments: Some airway issues postop, pain and difficulty catching breath--helped with decadron and robinol.
== END 2021-03-26 14:00 | disposition home or self-care (01) ==
PROVIDERS: Internal Medicine Pulmonary Disease; PCP Nurse Practitioner Family; Visit Provider Internal Medicine Critical Care Medicine
PROC: BB4BZZZ Ultrasonography of Pleura (ICD-10-PCS; principal; 2021-03-26 07:30)
PROC: 0BJ08ZZ Inspection of Tracheobronchial Tree, Via Natural or Artificial Opening Endoscopic (ICD-10-PCS; CPT 31622; 2021-03-26 07:30)
DX: C34.90 Malignant neoplasm of unspecified part of unspecified bronchus or lung (principal); J18.9 Pneumonia, unspecified organism; J44.9 Chronic obstructive pulmonary disease, unspecified; R91.1 Solitary pulmonary nodule; I10 Essential (primary) hypertension; K21.9 Gastro-esophageal reflux disease without esophagitis; E66.01 Morbid (severe) obesity due to excess calories; Z68.30 Body mass index [BMI] 30.0-30.9, adult; F41.9 Anxiety disorder, unspecified; E78.5 Hyperlipidemia, unspecified; Z87.891 Personal history of nicotine dependence
CPT/HCPCS: 31624; 31625; 31652; 80500; 87070; 87205; 88305; 96361; 96374; J1100; J2250; J2405; J2704; J2710; J3010; J3490; J7030; J7040; J7611; J7644

== ENCOUNTER 2021-03-31 12:02 | Outpatient (CLI) | payer MEDICARE, SELFPAY ==
--- NOTE | 2021-03-31 18:21 | ONC CON_ITS ---
Dr. Watts New Patient Note Patient: May Cummings Unit #: [id number]: 1950 Dicatated By: Brett Watts M.D.Date of Visit: March 31, 2021 Onc MED New Patient/Consult Referring Physician: Alfredo Mercado Chief Complaint: Lung cancer. 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 She had presented to the emergency room in February with a 1-month history of persistent cough and worsening shortness of breath. Her CT pulmonary angiogram showed no evidence for pulmonary embolus. There was evidence for a left hilar and suprahilar soft tissue mass, appearance of which was suspicious for neoplasm. The mass measured approximately 1.8 x 1.3 cm and there was associated obstruction and opacification of the left distal main bronchus and left upper lobe bronchus. There was consolidation involving the anterior medial left upper lobe with interstitial infiltrates in the left upper lobe likely due to postobstructive pneumonia. Lymphangitic metastatic involvement was not excluded. Prominent AP window and left hilar and subcarinal lymph nodes appeared suspicious. Also noted were moderate to advanced chronic emphysematous changes. On 03/26/2019 she underwent bronchoscopy/EBUS. The bronchoscopy showed an endobronchial lesion with pearly white appearance which was occluding the entrance of the left upper lobe bronchus. Endobronchial biopsies were obtained. The EBUS showed no significant hilar or mediastinal lymphadenopathy. Transbronchial FNA biopsies were obtained from station 7 and 10 L lymph nodes. Pathology on the endobronchial biopsy showed non-small cell carcinoma. Ancillary studies were performed but not yet reported. The FNA biopsies from station 7 and station 10 L lymph nodes were negative for malignancy. She is seen now for further management. She has not been feeling good generally. She says her energy is okay some days but other days she feels like she is 89 years old. She is still able to do light work. ECOG score is 1. She has good appetite. She had gained weight and she has not been able to lose it. She has not had fever. For the past 2 months she has been having night sweating. She has shortness of breath and wheezing, and she has cough productive of cloudy phlegm. She had been having pain in the area of the left axilla and upper left chest, but that has improved. She has not had any hemoptysis. She has had recurrent episodes of abdominal pain and nausea/vomiting associated with gastritis, but she has not had any of that recently. She has chronic constipation which previously had been managed adequately with MiraLAX. Recently it has been getting worse. She has no complaints other than she typically gets up 3 times at night to void. She has no other joint or bone pain. She has chronic migraine. She sometimes has dizziness. Her right leg occasionally goes to sleep. She has no other focal neurologic symptoms. Past Medical History: Her medical history includes anxiety, dyslipidemia, history of basilar artery aneurysm, hypertension, hyperthyroidism, peptic ulcer disease/gastritis, and plantar fascitis. Past Surgical History: She underwent bronchoscopy/EBUS on 03/26/2021. Her other surgical/procedural history includes cataract excision, multiple EGD procedures, colonoscopy in 2018, coil embolization of basilar artery aneurysm in 2016, and splenectomy in 2007. Medications: Albuterol Sulfate 2 Puff(s) (of 108 (90 base) mcg/act) Aerosol Powder, Breath Activated Inhalation daily, Atenolol 1 (50 mg) Tablet Oral daily, Calcium 1 (600-400 mg - Units) Tablet, chewable Oral daily, Cyclobenzaprine HCl 1 (10 mg) Tablet Oral t.i.d., Dicyclomine HCl 1 (20 mg) Tablet Oral t.i.d. PRN, Hair/Skin/Nails/Biotin 1 Tablet Oral daily, Lisinopril 1 (10 mg) Tablet Oral daily, methIMAzole 1 (10 mg) Tablet Oral daily, MiraLax 1 (17 ) Powder Oral daily, Pantoprazole Sodium 1 (40 mg) Tablet, enteric coated Oral b.i.d., Plavix 1 (75 mg) Tablet Oral daily, Probiotic 2 Tablet, enteric coated Oral daily, SUMAtriptan Succinate 1 (100 mg) Tablet Oral daily PRN, Vitamin D3 1 (25 mcg) Capsule Oral daily, Wheat Dextrin 1 Tablet, chewable Oral daily Allergies: No Known Allergies. Social History: Ms. Cummings is . She has a history of smoking 1 pack of cigarettes daily for 40 years. She quit somewhere in the range of 3 to 4 years ago. She has had alcohol use in the past, never heavy. She quit drinking about 5 years ago. Family History: Father with heart disease at age 73. Mother with complications of diabetes at age 73. A brother at age 59, also with complications of diabetes. Review Of Symptoms: Constitutional - Her energy is variable. Some days she feels okay but other days she feels like she is 89 years old. She is able to do light work. Her appetite is still okay. She had gained weight and she has been unable to lose it. She has not had fever. For the past 2 months she has been having night sweating. ECOG score is 1, Eyes - No change in vision, ENMT - No hearing loss or tinnitus. Her sinuses are sometimes clogged in the morning. No mouth sores. No sore throat or difficulty swallowing, Hematologic/Lymphatic - She has easy bruising, Respiratory - She has shortness of breath and wheezing with any activity. She has cough productive of cloudy phlegm. She was having pain in the left axillary area and upper left chest, but it is better now. No hemoptysis, Cardiovascular - No angina pain. No palpitations, Gastrointestinal - She has had abdominal pain associated with peptic ulcer disease. No nausea or vomiting. She has constipation. She had previously been managing it adequately with MiraLAX, but lately it has been getting worse. No blood in the stool or black stools, Genitourinary (F) - No dysuria or hematuria. No urinary frequency. She does have nocturia up to 3 times. No urgency or incontinence, Musculoskeletal - She has no other joint or bone pain, Integumentary - No skin rash or other skin changes, Neurologic - She has chronic migraine. She sometimes has dizziness. She complains that her right leg occasionally goes to sleep. She has no other focal neurologic symptoms, Psychiatric - No anxiety or depression. She is sometimes inpatient. No insomnia. Vital Signs: Performed on March 31, 2021 13:06: 7, 0, 29.44, 1.70 sq.m, 61 in, 93 % (LOW), 66 /min, 18 /min, 125/83 mm(hg), 99.4 F (HIGH), and 155.8 lbs (HIGH). Physical Examination: Constitutional - She looks pretty good generally, though she does appear short of breath with effort, Eyes - Sclerae nonicteric. Conjunctivae clear, ENMT - No lesions noted in the oral cavity, Neck - No mass or thyromegaly, Hematologic/Lymphatic - No cervical, clavicular, or axillary adenopathy, Respiratory - Lungs show diminished air movement bilaterally, Cardiovascular - Heart rhythm is regular. There is no murmur, gallop, or rub noted, Abdomen - Mildly distended. Liver is not enlarged. There is no abdominal mass or ascites noted and there is no inguinal adenopathy, Back/Spine - No spine or CVA tenderness noted, Extremities - No edema. Dorsalis pedis pulses are palpable bilaterally, Integumentary - No rashes. No suspicious skin lesions noted, Neurologic - No focal neurologic deficits noted. Problem List: 1. Non-small cell carcinoma involving the upper lobe of the left lung. There is some associated left upper lobe atelectasis. By clinical evaluation her disease is stage at least IB (T2a, N0, M0). 2. There is CT evidence of moderate to advanced emphysema. 3. Hypertension. 4. Hyperthyroidism. 5. Dyslipidemia. 6. Peptic ulcer disease/gastritis with recurrent episodes of abdominal pain and nausea/vomiting. 7. 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 Bronchoscopy showed an endobronchial lesion with occlusion of the left upper lobe bronchus. There is some associated left upper lobe atelectasis. By clinical evaluation her disease is stage at least IB (T2a, N0, M0). There is also CT evidence of moderate to advanced emphysema. The CT findings and the CT images were reviewed with the patient. I also discussed the pathology results and the clinical implications. She has a non-small cell carcinoma involving the left upper lobe bronchus. By clinical evaluation her disease appears to be localized, stage IB. I think it is doubtful, though, that she would be surgical candidate. If the tumor were deemed to be resectable, it would likely involve a pneumonectomy, and it is doubtful that she would tolerate that from the standpoint of her pulmonary function. I will, however, plan to review the CT and PET/CT images with Dr. Mercado and with Dr. Matos, and we we will first determine whether or not there is any possibility of surgical resection. If not, she would then be an appropriate candidate for chemoradiation and possibly maintenance immunotherapy. In the meantime, I will check on any additional pathology results that may be available. Signed By: Brett Watts M.D. <<Signature on File>>
== END 2021-03-31 12:03 | disposition home or self-care (01) ==
PROVIDERS: PCP Nurse Practitioner Family; Visit Provider Internal Medicine Medical Oncology
DX: C34.12 Malignant neoplasm of upper lobe, left bronchus or lung (principal); J98.11 Atelectasis; J43.9 Emphysema, unspecified; I10 Essential (primary) hypertension; E05.00 Thyrotoxicosis with diffuse goiter without thyrotoxic crisis or storm; E78.5 Hyperlipidemia, unspecified; K27.9 Peptic ulcer, site unspecified, unspecified as acute or chronic, without hemorrhage or perforation; Z86.2 Personal history of diseases of the blood and blood-forming organs and certain disorders involving the immune mechanism; Z79.899 Other long term (current) drug therapy
CPT/HCPCS: 99205

== ENCOUNTER → 2021-04-01 15:17 | Outpatient (BNVA) | payer MEDICARE, SELFPAY | PROVIDERS: PCP Nurse Practitioner Family; Visit Provider Internal Medicine Pulmonary Disease | DX: J43.2 Centrilobular emphysema (principal) | CPT/HCPCS: 87635 ==

== ENCOUNTER 2021-04-05 14:05 | Outpatient (CLI) | payer MEDICARE, SELFPAY ==
--- NOTE | 2021-04-05 14:52 | PFTS_ITS ---
Date of Study:04/05/21 Date of Dictation: MECHANICS: Forced vital capacity (FVC) is normal. Forced expiratory volume in one second (FEV1) is reduced. FEV1/FVC is reduced. FLOW VOLUME LOOP: Reduced flow at all lung volumes with significant scooping. LUNG VOLUMES: Total lung capacity (TLC) is normal. Residual volume (RV) is increased. DIFFUSING CAPACITY FOR CARBON MONOXIDE: Moderately reduced. INTERPRETATION: The postbronchodilator spirometry is consistent with moderate airflow obstruction. There is no significant postbronchodilator response. Lung volumes are consistent with air trapping. Gas exchange (DLCO) is moderately reduced. MTDD
== END 2021-04-05 14:06 | disposition home or self-care (01) ==
LOC: RT 14:09
PROVIDERS: PCP Nurse Practitioner Family; Visit Provider Internal Medicine Pulmonary Disease
DX: R06.02 Shortness of breath (principal)
CPT/HCPCS: 94060; 94618; 94726; 94729; J7611

== ENCOUNTER 2021-04-20 17:08 | Inpatient (IN) | payer MEDICARE, SELFPAY ==
[2021-04-20 17:24] VITALS: BP 134/84; PULSE 100; RESP 20; TEMP 37.8; O2SAT 95; BMI 29.2
--- NOTE | 2021-04-20 18:12 | ECG_ITS ---
[facility] Test Date: 2021-04-20 Pat Name: May Cummings Department: Room: Gender: Female Counsellors: : 1950 Requested By: Jayden Verduzco Order Number: [id number] Lev MD: Salvatore Jones M.D. Measurements Intervals [place] Rate: 95 P: 64 MN: 158 QRS: 78 QRSD: 71 T: 82 QT: 354 QTc: 445 Interpretive Statements SINUS RHYTHM Compared to ECG 03/08/2021 12:07:54 No significant changes Electronically Signed On 04-20-2021 18:55:04 CDT by Salvatore Jones M.D. [email or web address]
--- NOTE | 2021-04-20 18:41 | XRR_ITS ---
PROCEDURE INFORMATION: Exam: XR Chest Exam date and time: 04/20/2021 6:46 PM Age: 71 years old Clinical indication: Pain; Cough and dyspnea; Chest pressure; Patient HX: Recnt dx with pna and left lung mass TECHNIQUE: Imaging protocol: XR of the chest. Views: 1 view. COMPARISON: CR XR chest 1V portable [id number] 03/08/2021 12:05 PM FINDINGS: Lungs: Mildly advanced volume loss of the left upper lobe is noted. No other appreciable change in the pulmonary findings. Pleural spaces: Unremarkable. No pleural effusion. No pneumothorax. Heart/Mediastinum: Unremarkable. No cardiomegaly. Bones/joints: No acute fracture. XR/XR chest 1V portable [id number] IMPRESSION: Worsening volume loss in the left upper lobe suggesting worsening atelectasis. Coincident/underlying pneumonia and central versus bronchial mass are also considerations.
[2021-04-20 18:59] VITALS: BP 137/73; PULSE 87; RESP 20; O2SAT 93
[2021-04-20 19:07] LABS: Basophils # 0.1 10^3/uL (0.0-0.1); Basophils % 0.4 %; Eosinophils # 0.1 10^3/uL (0.0-0.8); Eosinophils % 0.4 %; Hematocrit 35.9 % (37.0-47.0); Hemoglobin 11.3 g/dL (11.5-15.3); Lymphocytes # 4.4 10^3/uL (0.8-4.8); Lymphocytes % 20.7 %; Mean Corpuscular HGB Conc 31.5 g/dL (30.0-36.0); Mean Corpuscular Hemoglobin 26.3 pg (28.0-34.0); Mean Corpuscular Volume 83.5 fL (81-99); Monocytes # 1.9 10^3/uL (0.2-0.9); Monocytes % 8.8 %; Neutrophils # 14.78 10^3/uL (1.8-7.7); Nucleated Red Blood Cells % 0 %; Platelet Count 550 10^3/cmm (130-400); Red Cell Distribution Width 16.8 % (12.1-15.1); White Blood Count 21.5 10^3/uL (4.0-10.0)
--- NOTE | 2021-04-20 19:13 | CTR_ITS ---
PROCEDURE INFORMATION: Exam: CTA Chest With Contrast Exam date and time: 04/20/2021 7:19 PM Age: 71 years old Clinical indication: Pain; Cough and shortness of breath; Chest pressure; Patient HX: Recently dx with pna and left lung mass; Additional info: SOB TECHNIQUE: Imaging protocol: Computed tomographic angiography of the chest with contrast. 3D rendering (Not supervised by radiologist): MIP and/or 3D reconstructed images were created by the technologist. Radiation optimization: All CT scans at this facility use at least one of these dose optimization techniques: automated exposure control; mA and/or kV adjustment per patient size (includes targeted exams where dose is matched to clinical indication); or iterative reconstruction. Contrast material: OMNI 350; Contrast volume: 71 ml; Contrast route: INTRAVENOUS (IV); COMPARISON: CT angio chest PE protcl [id number] 03/08/2021 2:18 PM RADIATION DOSE METRICS: Total DLP (mGy-cm): 590.09 FINDINGS: Pulmonary arteries: No pulmonary embolus is seen. Aorta: Unremarkable. No aortic aneurysm. No aortic dissection. Lungs: Worsening consolidation versus scarring of the left upper lobe is noted. No other significant change in the lung findings. Moderate pulmonary emphysema is again noted. The left upper lobe bronchus is occluded. Pleural spaces: Unremarkable. No pneumothorax. No pleural effusion. Heart: Unremarkable. No cardiomegaly. No pericardial effusion. Lymph nodes: Mild mediastinal lymphadenopathy is again noted. Bones/joints: Unremarkable. No acute fracture. Soft tissues: Unremarkable. CT/CT angio chest PE protcl [id number] IMPRESSION: 1. No pulmonary embolus is seen. 2. Mild interval worsening of the atelectasis and/or pneumonia of the left upper lobe. The left upper lobe bronchus is occluded. 3. Moderate pulmonary emphysema. Radiation Dose CTDIVOL = (mGy): DLP = 590.09 (mGy-cm)
--- NOTE | 2021-04-20 19:25 | W.ED.SOB ---
HPI - SOB/Dyspnea General: Chief Complaint: Shortness of Breath/Dyspnea Stated Complaint: pneumonia complications Time Seen by Provider: 04/20/21 18:42 Source: patient Mode of arrival: ambulatory Limitations: no limitations History of Present Illness: HPI Narrative: 71-year-old female who has a history of a lung mass and recently had a bronchoscopy and a PET scan. She also had postobstructive pneumonia in the past as well. She states that over the last week she has had fevers and increasing shortness of breath and increasing cough. She is concerned that her pneumonia is back. She denies any vomiting or diarrhea. Denies any pain currently. Associated symptoms: Reports fever(s); Deny abdominal pain, chest pain, nausea or vomiting Review of Systems Const: Reports: fever(s), chills and body aches; Denies: change in appetite Eyes: Denies: blurry vision or eye discomfort ENMT: Denies: throat pain or dental pain Card: Denies: chest pain Resp: Reports: dyspnea and non-productive cough GI: Denies: abdominal pain, nausea, vomiting or diarrhea : Denies: dysuria Musc: Denies: neck pain or back pain Skin/Breast: Denies: rash Neuro: Denies: headache(s) Psych: Denies: depression Ike/Lymph: Denies: easy bruising All/Imm: Denies: urticaria PFSH ED PFSH: Medical History Anxiety disorder Basilar artery aneurysm Constipation Dyslipidemia Elevated glucose Gastritis Hemorrhoid Hypertension Continue on atenolol, hold lisinopril until seen by primary care provider Hyperthyroidism Continue on home methimazole Insomnia Migraine Plantar fasciitis Statin intolerance Surgical History H/O section H/O splenectomy 2008 History of esophagogastroduodenoscopy (EGD) 2019 -gastritis S/P coil embolization of cerebral aneurysm 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, stent subsequently removed Status post colonoscopy 2018: Normal repeat in 10 years Family History Mother Diabetes Father Heart disease Denies family history of Anesthesia complication Bleeding disorder Social History Smoking and tobacco status: former smoker Quit status (tobacco): has quit using tobacco Year quit tobacco: 2017 [id number] Second hand smoke exposure: No Smoking risk assessment/counseling performed?: Yes Alcohol intake: current Alcohol intake frequency: holidays/special occasions only Lives independently: Yes Household members: spouse Marital status: service: No Current occupational status: retired Pets and animals: Yes History of recent travel: No Current gender identity: Female Physical Exam Const: COMMON NORMALS: no acute distress, patient oriented x3 and healthy appearing HENMT: COMMON NORMALS: normocephalic and atraumatic HEAD & SCALP: normocephalic and atraumatic Eye: COMMON NORMALS: Equal, round and reactive pupils present and EOMs intact bilaterally PUPIL: Yes Equal, round and reactive pupils present Neck/C-Spine: COMMON NORMALS: full ROM and supple Chest: COMMONS NORMALS: normal inspection of the chest and normal palpation of entire chest wall Resp: COMMON NORMALS: normal respiratory effort, No retractions, No use of accessory muscles and clear to auscultation bilaterally AUSCULTATION: clear to auscultation bilaterally Cardio: COMMON NORMALS: regular rate, regular rhythm and No murmurs present (Cardio) RATE: regular rate RHYTHM: regular rhythm GI: COMMON NORMALS: Normal to inspection, nondistended, normoactive bowel sounds present, Soft to palpation, non-tender and no masses PALPATION: Yes Soft to palpation Extremity: COMMON NORMALS: normal to inspection and full ROM Neuro: COMMON NORMALS: patient oriented x3, moves all extremities and no focal motor deficits Psych: COMMON NORMALS: mental status grossly normal, Normal thought process present and cooperative THOUGHT PROCESS: Normal thought process present Skin: COMMON NORMALS: no rashes or lesions noted and no wounds GENERAL SKIN EXAM: no rashes or lesions noted Course Vital Signs: Vital signs: Vital Signs Temperature 100.0 F H 04/20/21 17:24 Pulse Rate 90 04/20/21 20:44 Respiratory Rate 20 H 04/20/21 20:44 Blood Pressure 137/73 04/20/21 18:59 Pulse Oximetry 94 04/20/21 20:44 MDM - SOB/Dyspnea MDM Narrative: Medical decision making narrative: Patient presents here with postobstructive pneumonia. Patient started on IV antibiotics and I spoke to the hospitalist will admit. She has been well-appearing here. Lab Data: Labs: Lab Results 04/20/21 04/20/21 04/20/21 Range/Units 18:57 18:57 18:57 WBC 21.5 H (4.0-10.0) 10^3/ uL RBC 4.30 (4.1-5.3) 10^6/u L Hgb 11.3 L (11.5-15.3) g/dL Hct 35.9 L (37.0-47.0) % MCV 83.5 (81-99) fL MCH 26.3 L (28.0-34.0) pg MCHC 31.5 (30.0-36.0) g/dL RDW 16.8 H (12.1-15.1) % Plt Count 550 H (130-400) 10^3/c mm MPV 9.0 (7.4-10.4) fL Neut % (Auto) 69.0 % Lymph % (Auto) 20.7 % [place] % (Auto) 8.8 % Eos % (Auto) 0.4 % Baso % (Auto) 0.4 % Neut # (Auto) 14.78 H (1.8-7.7) 10^3/u L Lymph # (Auto) 4.4 (0.8-4.8) 10^3/u L [place] # (Auto) 1.9 H (0.2-0.9) 10^3/u L Eos # (Auto) 0.1 (0.0-0.8) 10^3/u L Baso # (Auto) 0.1 (0.0-0.1) 10^3/u L Nucleated RBC % (a uto) 0 % Nucleated RBCs # 0.0 /100WBC Specimen Type Sample Site ABG pH (7.35-7.45) ABG pCO2 (35-45) mmHg ABG pO2 (80.0-100.0) mmH g ABG HCO3 (22-26) mmol/L ABG O2 Saturation ABG Base Excess (-2.0-2.0) mmol/ L [place] Test A-a O2 Gradient (5-10) mmHg Hematocrit (37-47) % Hgb O2 Saturation (95-100) % Carboxyhemoglobin (0.4-20.1) %THgb Methemoglobin (0.4-1.5) % Total Hemoglobin (12-16) g/dL Ionized Calcium (1.1-1.4) mmol/L O2 Delivery Device Manager Business Intelligence ID Sodium 134 L (136-145) mmol/L Potassium 4.0 (3.5-5.1) mmol/L Chloride 97 L (98-107) mmol/L Carbon Dioxide 24 (22-29) mmol/L Anion Gap 17.0 (5-19) BUN 14 (8-23) mg/dL Creatinine 1.0 H (0.5-0.9) mg/dL GFR Calculation 55.0 L (90-130) mL/min Glucose 122 H (65-115) mg/dL Calculated Osmolal ity 280 L (285-295) mOsm/k g Lactic Acid 0.8 (0.5-2.2) mmol/L Calcium 8.6 (8.5-10.5) mg/dL Total Bilirubin 0.6 (0.15-1.2) mg/dL AST 10 (0-32) U/L ALT 8 (0-33) U/L Alkaline Phosphata se 87 (35-105) IU/L Troponin T Baselin e (0-10) ng/L Troponin T 120 Min squaxin (0-10) ng/L Delta Troponin T (0-10) ABS# Total Protein 7.4 (6.6-8.7) g/dL Albumin 3.8 (3.5-5.2) g/dL Globulin 3.6 (1.3-4.6) g/dL Urine Color (Yellow) Urine Appearance (CLEAR) Urine pH (5-7) Ur Specific Gravit y (1.005-1.030) Urine Protein (Negative) Urine Glucose (UA) (Normal) Urine Ketones (Negative) Urine Blood (Negative) Urine Nitrate (Negative) Urine Bilirubin (Negative) Urine Urobilinogen (Negative) mg/dL Ur Leukocyte Ami ase (Negative) Urine RBC (0-2) /hpf Urine WBC (0-5) /hpf Ur Squamous Epith Cells (0-5) /hpf Amorphous Sediment Urine Bacteria (NONE) /hpf Hyaline Casts /lpf 04/20/21 04/20/21 04/20/21 Range/Units 18:57 19:30 20:05 WBC (4.0-10.0) 10^3/ uL RBC (4.1-5.3) 10^6/u L Hgb (11.5-15.3) g/dL Hct (37.0-47.0) % MCV (81-99) fL MCH (28.0-34.0) pg MCHC (30.0-36.0) g/dL RDW (12.1-15.1) % Plt Count (130-400) 10^3/c mm MPV (7.4-10.4) fL Neut % (Auto) % Lymph % (Auto) % [place] % (Auto) % Eos % (Auto) % Baso % (Auto) % Neut # (Auto) (1.8-7.7) 10^3/u L Lymph # (Auto) (0.8-4.8) 10^3/u L [place] # (Auto) (0.2-0.9) 10^3/u L Eos # (Auto) (0.0-0.8) 10^3/u L Baso # (Auto) (0.0-0.1) 10^3/u L Nucleated RBC % (a uto) % Nucleated RBCs # /100WBC Specimen Type Arterial Sample Site Radial, left ABG pH 7.44 (7.35-7.45) ABG pCO2 36.2 (35-45) mmHg ABG pO2 62.2 L (80.0-100.0) mmH g ABG HCO3 24.8 (22-26) mmol/L ABG O2 Saturation 93.9 ABG Base Excess 0.9 (-2.0-2.0) mmol/ L [place] Test Pos A-a O2 Gradient 5.5 (5-10) mmHg Hematocrit 32.0 L (37-47) % Hgb O2 Saturation 93.9 L (95-100) % Carboxyhemoglobin 1.6 (0.4-20.1) %THgb Methemoglobin < 0.0 L (0.4-1.5) % Total Hemoglobin 10.4 L (12-16) g/dL Ionized Calcium 1.1 (1.1-1.4) mmol/L O2 Delivery Device Room air Manager Business Intelligence ID ellpe Sodium 134.0 (136-145) mmol/L Potassium 3.5 (3.5-5.1) mmol/L Chloride (98-107) mmol/L Carbon Dioxide (22-29) mmol/L Anion Gap (5-19) BUN (8-23) mg/dL Creatinine (0.5-0.9) mg/dL GFR Calculation (90-130) mL/min Glucose 123.0 H (65-115) mg/dL Calculated Osmolal ity (285-295) mOsm/k g Lactic Acid (0.5-2.2) mmol/L Calcium (8.5-10.5) mg/dL Total Bilirubin (0.15-1.2) mg/dL AST (0-32) U/L ALT (0-33) U/L Alkaline Phosphata se (35-105) IU/L Troponin T Baselin e 6 (0-10) ng/L Troponin T 120 Min squaxin (0-10) ng/L Delta Troponin T (0-10) ABS# Total Protein (6.6-8.7) g/dL Albumin (3.5-5.2) g/dL Globulin (1.3-4.6) g/dL Urine Color Yellow (Yellow) Urine Appearance Clear (CLEAR) Urine pH 5 (5-7) Ur Specific Gravit y 1.010 (1.005-1.030) Urine Protein 1+ H (Negative) Urine Glucose (UA) Norm (Normal) Urine Ketones 1+ H (Negative) Urine Blood 2+ H (Negative) Urine Nitrate Negative (Negative) Urine Bilirubin 1+ H (Negative) Urine Urobilinogen Norm (Negative) mg/dL Ur Leukocyte Ami ase Trace H (Negative) Urine RBC 5-10 H (0-2) /hpf Urine WBC 5-10 H (0-5) /hpf Ur Squamous Epith Cells 15-25 H (0-5) /hpf Amorphous Sediment Not Reportable Urine Bacteria Trace (NONE) /hpf Hyaline Casts 0-4 H /lpf 04/20/21 Range/Units 20:54 WBC (4.0-10.0) 10^3/ uL RBC (4.1-5.3) 10^6/u L Hgb (11.5-15.3) g/dL Hct (37.0-47.0) % MCV (81-99) fL MCH (28.0-34.0) pg MCHC (30.0-36.0) g/dL RDW (12.1-15.1) % Plt Count (130-400) 10^3/c mm MPV (7.4-10.4) fL Neut % (Auto) % Lymph % (Auto) % [place] % (Auto) % Eos % (Auto) % Baso % (Auto) % Neut # (Auto) (1.8-7.7) 10^3/u L Lymph # (Auto) (0.8-4.8) 10^3/u L [place] # (Auto) (0.2-0.9) 10^3/u L Eos # (Auto) (0.0-0.8) 10^3/u L Baso # (Auto) (0.0-0.1) 10^3/u L Nucleated RBC % (a uto) % Nucleated RBCs # /100WBC Specimen Type Sample Site ABG pH (7.35-7.45) ABG pCO2 (35-45) mmHg ABG pO2 (80.0-100.0) mmH g ABG HCO3 (22-26) mmol/L ABG O2 Saturation ABG Base Excess (-2.0-2.0) mmol/ L [place] Test A-a O2 Gradient (5-10) mmHg Hematocrit (37-47) % Hgb O2 Saturation (95-100) % Carboxyhemoglobin (0.4-20.1) %THgb Methemoglobin (0.4-1.5) % Total Hemoglobin (12-16) g/dL Ionized Calcium (1.1-1.4) mmol/L O2 Delivery Device Manager Business Intelligence ID Sodium (136-145) mmol/L Potassium (3.5-5.1) mmol/L Chloride (98-107) mmol/L Carbon Dioxide (22-29) mmol/L Anion Gap (5-19) BUN (8-23) mg/dL Creatinine (0.5-0.9) mg/dL GFR Calculation (90-130) mL/min Glucose (65-115) mg/dL Calculated Osmolal ity (285-295) mOsm/k g Lactic Acid (0.5-2.2) mmol/L Calcium (8.5-10.5) mg/dL Total Bilirubin (0.15-1.2) mg/dL AST (0-32) U/L ALT (0-33) U/L Alkaline Phosphata se (35-105) IU/L Troponin T Baselin e (0-10) ng/L Troponin T 120 Min squaxin 6.00 (0-10) ng/L Delta Troponin T 0 (0-10) ABS# Total Protein (6.6-8.7) g/dL Albumin (3.5-5.2) g/dL Globulin (1.3-4.6) g/dL Urine Color (Yellow) Urine Appearance (CLEAR) Urine pH (5-7) Ur Specific Gravit y (1.005-1.030) Urine Protein (Negative) Urine Glucose (UA) (Normal) Urine Ketones (Negative) Urine Blood (Negative) Urine Nitrate (Negative) Urine Bilirubin (Negative) Urine Urobilinogen (Negative) mg/dL Ur Leukocyte Ami ase (Negative) Urine RBC (0-2) /hpf Urine WBC (0-5) /hpf Ur Squamous Epith Cells (0-5) /hpf Amorphous Sediment Urine Bacteria (NONE) /hpf Hyaline Casts /lpf Imaging Data^: CT Chest: Attestation: I personally reviewed and interpreted this imaging study as follows: Radiologist's impression: [address] [address] [address] Scan Report Signed Patient: May Cummings Unit #: [id number] : 1950 Age/Sex: 71 / F ADM Date: 04/20/21 Loc: ER Room/Bed: Attending Dr: Ordering Provider/Ordering MD: Harley Barker MD Date of Service: 04/20/21 Procedure(s): CT angio chest PE protcl [id number] Accession Number(s): [id number] Report Number: [id number] PROCEDURE INFORMATION: Exam: CTA Chest With Contrast Exam date and time: 04/20/2021 7:19 PM Age: 71 years old Clinical indication: Pain; Cough and shortness of breath; Chest pressure; Patient HX: Recently dx with pna and left lung mass; Additional info: SOB TECHNIQUE: Imaging protocol: Computed tomographic angiography of the chest with contrast. 3D rendering (Not supervised by radiologist): MIP and/or 3D reconstructed images were created by the technologist. Radiation optimization: All CT scans at this facility use at least one of these dose optimization techniques: automated exposure control; mA and/or kV adjustment per patient size (includes targeted exams where dose is matched to clinical indication); or iterative reconstruction. Contrast material: OMNI 350; Contrast volume: 71 ml; Contrast route: INTRAVENOUS (IV); COMPARISON: CT angio chest PE protcl [id number] 03/08/2021 2:18 PM RADIATION DOSE METRICS: Total DLP (mGy-cm): 590.09 FINDINGS: Pulmonary arteries: No pulmonary embolus is seen. Aorta: Unremarkable. No aortic aneurysm. No aortic dissection. Lungs: Worsening consolidation versus scarring of the left upper lobe is noted. No other significant change in the lung findings. Moderate pulmonary emphysema is again noted. The left upper lobe bronchus is occluded. Pleural spaces: Unremarkable. No pneumothorax. No pleural effusion. Heart: Unremarkable. No cardiomegaly. No pericardial effusion. Lymph nodes: Mild mediastinal lymphadenopathy is again noted. Bones/joints: Unremarkable. No acute fracture. Soft tissues: Unremarkable. CT/CT angio chest PE protcl [id number] IMPRESSION: 1. No pulmonary embolus is seen. 2. Mild interval worsening of the atelectasis and/or pneumonia of the left upper lobe. The left upper lobe bronchus is occluded. 3. Moderate pulmonary emphysema. EKG Data^: EKG 1: Attestation: I personally reviewed and interpreted this EKG as follows: EKG Interpretation Date: 04/20/21 EKG interpretation time: 19:52 Interpretation: nsr hr [address] or t wave abnormalities qrs 77 qtc 418 Discharge Plan Discharge Prescriptions: No Action cyclobenzaprine 10 mg tablet 10 mg PO PRN RF: 0 lisinopril 10 mg tablet 10 mg PO DAILY@20 RF: 0 Hold Instructions: Resume on 01/06/20. Follow-up with primary care provider to discuss need to continue this medication methimazole 10 mg tablet 10 mg PO DAILY@20 RF: 0 polyethylene glycol 3350 [Miralax] 17 gram powder in packet 17 gm PO DAILY@08 RF: 0 sumatriptan succinate 100 mg tablet 100 mg PO BID PRN (Reason: Migraine Headache) RF: 0 albuterol sulfate [ProAir HFA] 90 mcg/actuation Hfa Aerosol Inhaler 2 puff INHALATION Q4H PRN (Reason: Shortness Of Breath) RF: 0 mv,Ca,ir,Vn-CM-emt-gel-patty-PAB 3-133 mg-mcg Capsule 2 cap PO DAILY RF: 0 Benefiber Healthy Shape 5 gram/7.4 gram Powder See Rx Instructions .ROUTE .COMPLEX RF: 0 Probiotic 2 tab PO QAM RF: 0 clopidogrel 75 mg tablet 75 mg PO DAILY@20 RF: 0 Hold Instructions: Doctor's Order pantoprazole [Protonix] 40 mg tablet,delayed release (DR/EC) 40 mg PO BID RF: 0 atenolol 50 mg tablet 50 mg PO DAILY@20 RF: 0 Calcium Soft Chew 500 mg-1,000 unit-40 mcg Tablet,Chewable 1 tab PO DAILY RF: 0 Carafate 1 gram tablet 1 gm PO TID RF: 0 Unknown Inhaler Name See Rx Instructions .ROUTE .COMPLEX RF: 0 dicyclomine 20 mg tablet 20 mg PO QID PRN (Reason: Abdominal Discomfort) RF: 0 Coding Level of Care Code ED Lead Systems Analyst for Chg Fwd Exam Comprehensive
[2021-04-20] MEDS: iohexol 350 mg/mL 100 mL Btl IV (19:26)
[2021-04-20 19:33] LABS: Troponin(5th) Baseline 6 ng/L (0-10)
[2021-04-20 19:35] LABS: ABG PCO2 36.2 mmHg (35-45); ABG PH Result 7.44 (7.35-7.45); Alveolar-Arterial Oxygen Gradi 5.5 mmHg (5-10); Base Excess ABG 0.9 mmol/L (-2.0-2.0); Blood Gas Allen Test Pos; Blood Gas Sample Site Radial, left; Blood Gas Sample Type Arterial; Carboxyhemoglobin 1.6 %THgb (0.4-20.1); HCO3 ABG 24.8 mmol/L (22-26); HGB O2 Sat 93.9 % (95-100); Ionized Calcium Level - ABG 1.1 mmol/L (1.1-1.4); Methemoglobin < 0.0 % (0.4-1.5); Oxygen Device ROOM AIR; Oxygen Saturation ABG 93.9; PO2 ABG 62.2 mmHg (80.0-100.0); Potassium Level - ABG 3.5 mmol/L (3.5-5.0); Total Hemoglobin 10.4 g/dL (12-16)
[2021-04-20 19:37] LABS: Lactic Sepsis W/Reflex 0.8 mmol/L (0.5-2.2)
[2021-04-20 19:38] LABS: Alanine Aminotransferase 8 U/L (0-33); Albumin Level 3.8 g/dL (3.5-5.2); Alkaline Phosphatase 87 IU/L (35-105); Aspartate Amino Transferase 10 U/L (0-32); Blood Urea Nitrogen 14 mg/dL (8-23); Calcium 8.6 mg/dL (8.5-10.5); Carbon Dioxide 24 mmol/L (22-29); Chloride 97 mmol/L (98-107); Globulin 3.6 g/dL (1.3-4.6); Glucose 122 mg/dL (65-115); Osmolality Calculated 280 mOsm/kg (285-295); Sodium 134 mmol/L (136-145); Total Bilirubin 0.6 mg/dL (0.15-1.2); Total Protein 7.4 g/dL (6.6-8.7)
--- NOTE | 2021-04-20 20:04 | PC.PHAR ---
PT STATES SHE TAKES CARE OF HER OWN MEDICATIONS-PT STATES SHE HAD CYMBALTA 60MG DAILY FILLED ON 04/14/21 30D/S PT STATES SHE ONLY TOOK ONE DOSE AND SHE WONT BE TAKING THEM AGAIN-PT STATES SHE TAKES HER CARAFATE TID RX FILLED FOR QID ON 04/12/21
--- NOTE | 2021-04-20 20:12 | ECG_ITS ---
[facility] Test Date: 2021-04-20 Pat Name: May Cummings Department: Room: Gender: Female Inspector Plumbing: : 1950 Requested By: Jayden Verduzco Order Number: [id number] Lev MD: Salvatore Jones M.D. Measurements Intervals [place] Rate: 85 P: 9 AK: 171 QRS: 68 QRSD: 77 T: 69 QT: 375 QTc: 448 Interpretive Statements SINUS RHYTHM Compared to ECG 04/20/2021 17:33:53 No significant changes Electronically Signed On 04-22-2021 19:03:20 CDT by Salvatore Jones M.D. [id number]
[2021-04-20 20:37] LABS: Bilirubin Urine 1+ (Negative); Blood Urine 2+ (Negative); Glucose Urine UA Norm (Normal); Ketones Urine 1+ (Negative); Nitrate Urine Negative (Negative); Protein Urine 1+ (Negative); Urine Appearance Clear (CLEAR); Urine Color Yellow (Yellow); Urobilinogen Urine Norm (Negative); pH Urine 5 (5-7)
[2021-04-20 20:38] LABS: Add Urine Microscopic? YES; Leukocyte Esterase Urine Trace (Negative)
[2021-04-20 20:39] LABS: Bacteria Urine TRACE /hpf; Squamous Epithelial Cell Urine 15-25 /hpf (0-5)
[2021-04-20 20:40] LABS: Add Urine Culture? No; Hyaline Casts Urine 0-4 /lpf
[2021-04-20] MEDS: cefTRIAXone 1,000 MG in sodium chloride 0.9% (plus) 50 ML 100 MG IV (20:43)
[2021-04-20 20:44] VITALS: PULSE 90; RESP 20; O2SAT 94
[2021-04-20] MEDS: azithromycin 500 MG in sodium chloride 0.9% 250 ML 250 MG IV (21:25)
[2021-04-20 21:30] LABS: Troponin 5 2HR Delta 0 ABS# (0-10)
--- NOTE | 2021-04-20 21:59 | P.HP_ITS ---
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 Her case has been discussed with Dr. Watts and Dr. Matos, bronchoscopy was done by Dr. Mercado. Pulmonary function test consistent with moderate airflow obstruction. PET scan showed focal abnormal activity left hilar area with surrounding atelectasis however coarse linear marking was n oticed around left apical area and left deltoid musculature. She is presented today with chief complaint of fever, shortness of breath and worsening of her symptoms. 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 She does not use any oxygen at home, she has not noticed any fever, nausea, vomiting however endorsing increased productive cough, bringing up greenish sputum, she is also experiencing pleuritic chest pain, it gets worse on coughing, she is describing this pain as sharp which radiates from left axillary area towards her right clavicle and goes towards her scapula. She has not noticed any hemoptysis or hematemesis. She is endorsing night sweats(to the point that she has to get a new mattress), abdominal bloating change in her taste. Of note, she recently finished antibiotics for her pneumonia, 3 to 4 days ago she started experiencing sore throat as well. Diagnostics in the ER revealed leukocytosis, low-grade fever, she met sepsis criteria with worsening left upper lobe pneumonia CTA ruled out PE however shows worsening of fibrotic changes, atelectasis and pneumonia, chest x-ray shows mild worsening of left upper lobe consolidation she was given ceftriaxone and azithromycin in the ER Review of Systems Const: Reports: fever(s), chills, body aches, change in appetite, fatigue, night sweats and diaphoresis Eyes: Denies: change in vision ENMT: Reports: throat pain Card: Reports: chest pain and dyspnea on exertion Resp: Reports: dyspnea, productive cough and pain on inspiration GI: Denies: abdominal pain : Denies: flank pain Musc: Reports: back pain Skin/Breast: Denies: rash Neuro: Denies: headache(s) Psych: Reports: anxiety Endo: Denies: polyuria Ike/Lymph: Denies: easy bruising All/Imm: Denies: urticaria Medications/Allergies Home Medications Medication Instructions Recorded Confirmed Last Taken Type lisinopril 10 mg tablet 10 mg PO DAILY@20 tab 11/19/19 04/20/21 04/19/21 History methimazole 10 mg tablet 10 mg PO DAILY@20 tab 11/19/19 04/20/21 04/19/21 History polyethylene glycol 3350 17 gram 17 gm PO DAILY@08 each 11/19/19 04/20/21 04/20/21 History oral powder packet Benefiber Healthy Shape See Rx Instructions .ROUTE .COMPLEX 03/08/21 04/20/21 04/20/21 History Probiotic 2 tab PO QAM 03/08/21 04/20/21 04/20/21 History albuterol sulfate [ProAir HFA] 2 puff INHALATION Q4H PRN 03/08/21 04/20/21 03/25/21 History atenolol 50 mg PO DAILY@20 03/08/21 04/20/21 04/19/21 History clopidogrel 75 mg PO DAILY@20 03/08/21 04/20/21 04/19/21 History mv,Ca,ir,Ft-DA-dva-gel-patty-PAB 2 cap PO DAILY 03/08/21 04/20/21 04/20/21 History pantoprazole [Protonix] 40 mg PO BID 03/08/21 04/20/21 04/20/21 08:00 History sumatriptan succinate 100 mg PO BID PRN 03/08/21 04/20/21 04/19/21 History cyclobenzaprine 10 mg tablet 10 mg PO PRN 03/17/21 04/20/21 03/15/21 History dicyclomine 20 mg PO QID PRN 03/26/21 04/20/21 03/25/21 History Carafate 1 gm PO TID 04/20/21 04/20/21 04/20/21 13:00 History Unknown Inhaler Name See Rx Instructions .ROUTE .COMPLEX 04/20/21 04/20/21 Unknown History calcium-vitamin D3-vitamin K 1 tab PO DAILY 04/20/21 04/20/21 04/19/21 History [Calcium Soft Chew] Allergies Allergy/AdvReac Type Severity Reaction Status Date / Time No Known Allergies Allergy Verified 04/20/21 20:03 PFSH Acute PFSH: Medical History Anxiety disorder Basilar artery aneurysm Constipation Dyslipidemia Elevated glucose Gastritis Hemorrhoid Hypertension Continue on atenolol, hold lisinopril until seen by primary care provider Hyperthyroidism Continue on home methimazole Insomnia Migraine Plantar fasciitis Statin intolerance Surgical History H/O section H/O splenectomy 2007 History of esophagogastroduodenoscopy (EGD) 2019 -gastritis S/P coil embolization of cerebral aneurysm 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, stent subsequently removed Status post colonoscopy 2018: Normal repeat in 10 years Family History Mother Diabetes Father Heart disease Denies family history of Anesthesia complication Bleeding disorder Social History Smoking and tobacco status: former smoker Quit status (tobacco): has quit using tobacco Year quit tobacco: 2017 [id number] Second hand smoke exposure: No Smoking risk assessment/counseling performed?: Yes Alcohol intake: current Alcohol intake frequency: holidays/special occasions only Lives independently: Yes Household members: spouse Marital status: service: No Current occupational status: retired Pets and animals: Yes History of recent travel: No Current gender identity: Female Vitals/I&O/Wt Last Vital Signs Temp 100.0 F H 04/20/21 17:24 Pulse 90 04/20/21 20:44 Resp 20 H 04/20/21 20:44 BP 137/73 04/20/21 18:59 Pulse Ox 94 04/20/21 20:44 04/20/21 04/20/21 04/20/21 06:59 14:59 22:59 Intake Total 50 / 50 Balance 50 / 50 Weight last 48 hrs Weight 70.307 kg Physical Exam Narrative: EXAM NARRATIVE: Pleasant elderly female She was laying supine saturating well on room air She was complaining of left sided chest discomfort which was reproducible, left anterior axillary line, no skin rash or nodule noted on palpation Bilateral breath sounds diminished left greater than right, expiratory mild whee zing no active crepitation no crackles No acute respiratory distress S1, S2 sinus rhythm no signs of heart failure Abdomen distended central obesity soft Lower extremity no edema gangrene or ulcer No digital clubbing or cyanosis or gangrene EOMI, PERRLA Distress secondary to left anterior axillary pain No neurological deficit Data : 04/20/21 18:57 04/20/21 18:57 Micro: Microbiology 04/20/21 21:02 Blood Culture - Preliminary Blood SPECIMEN COLLECTED 04/20/21 20:54 Blood Culture - Preliminary Blood SPECIMEN COLLECTED A&P Assessment and plan (1) Non-small cell cancer of left lung: Status: Acute (2) Left upper lobe pulmonary nodule: Status: Acute (3) COPD (chronic obstructive pulmonary disease): Status: Acute Qualifiers: COPD type: emphysema Emphysema type: centrilobular Qualified Code(s): J43.2 - Centrilobular emphysema (4) Postobstructive pneumonia: Status: Acute (5) Sepsis: Status: Acute Additional A&P Information Sepsis secondary to postobstructive pneumonia Criteria met with tachypnea, fever, leukocytosis, lactic acid normal she received 1 L normal saline and ceftriaxone azithromycin Considering history of postobstructive pneumonia and recurrent infections, will start vancomycin and Zosyn request antigens, blood culture along sputum, Currently saturating well on room air CT chest showing worsening of atelectasis and consolidation Please touch base with in the morning Non-small cell cancer of left lung PET scan is showing atelectasis and mild increased activity at the rim of atelectasis on the left side vascular patient is complaining about pleuritic chest pain as well Her candidacy for surgery is questionable, Dr. Watts might opt for chemoradiation, decision has not been made yet, Pulm function test revealed moderate obstructive flow Not requiring oxygen at this point No signs of PE For pleuritic chest pain she received morphine 4 mg in the ER, monitor for signs of sedation and respiratory depression Hoarseness of voice: History of hypothyroidism, Check TSH, continue methimazole for now No evidence of meta stasis of cancer in oropharynx Full code DVT prophylaxis Lovenox Cardiac diet Attestations Medical Necessity Statement*: Anticipating stay in the hospital cross more than 2 midnights for postobstructive pneumonia and sepsis Time Spent in Patient Care: (>than 50% of time spent in counselling and/or direct pt care on unit) . 40mins Coding Level of Care Code Acute Hoop Maker Helper Machine for Chg Fwd Diagnoses Non-small cell cancer of left lung C34.92 Left upper lobe pulmonary nodule R91.1 COPD (chronic obstructive pulmonary disease) J43.2 COPD type: emphysema Emphysema type: centrilobular Postobstructive pneumonia J18.9 Sepsis A41.9
[2021-04-20 23:38] LABS: Procalcitonin 0.13 ng/mL (0-0.5)
[2021-04-20] MEDS: morphine 4 mg/mL SDV 1 mL IVP (23:53)
[2021-04-21] VITALS (22 sets, daily range): BP systolic 106–128; BP diastolic 65–91; PULSE 63–99; RESP 16–28; TEMP 36.3–38.3; O2SAT 91–97
--- NOTE | 2021-04-21 00:12 | ECG_ITS ---
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 Measurements Intervals [place] Rate: 107 P: -27 NM: 171 QRS: -21 QRSD: 73 T: -29 QT: 338 QTc: 453 Interpretive Statements SINUS TACHYCARDIA BORDERLINE LEFT AXIS DEVIATION [QRS AXIS < -20] MODERATE VOLTAGE CRITERIA FOR LVH, CONSIDER NORMAL VARIANT [MEETS CRITERIA IN ONE OF: R(aVL), S(V1), R(V5), R(V5/V6)+S(V1)] Compared to ECG 04/20/2021 19:52:34 Sinus rhythm no longer present Electronically Signed On 04-22-2021 19:03:08 CDT by Salvatore Jones M.D. [id number] f
[2021-04-21 00:30] LABS: Troponin 5 6HR Delta 0 ng/L (0-12)
[2021-04-21 00:37] LABS: Procalcitonin 0.14 ng/mL (0-0.5)
[2021-04-21] MEDS: HYDROmorphone 1 mg/mL INJ 1 mL 0.4 MG IVP ×2 (03:36→09:34)
[2021-04-21] MEDS: enoxaparin 40 mg/0.4 mL Syringe SUBCUT (03:38)
[2021-04-21] MEDS: vancomycin 1,250 MG/250 ML PIGGYBACK 250 MG IV (03:39)
[2021-04-21 04:23] LABS: Basophils # 0.1 10^3/uL (0.0-0.1); Basophils % 0.5 %; Eosinophils # 0.2 10^3/uL (0.0-0.8); Eosinophils % 0.8 %; Hematocrit 35.5 % (37.0-47.0); Hemoglobin 11.1 g/dL (11.5-15.3); Lymphocytes % 29.4 %; Mean Corpuscular HGB Conc 31.3 g/dL (30.0-36.0); Mean Corpuscular Hemoglobin 26.7 pg (28.0-34.0); Mean Corpuscular Volume 85.3 fL (81-99); Mean Platelet Volume 9.1 fL (7.4-10.4); Monocytes # 2.2 10^3/uL (0.2-0.9); Monocytes % 10.6 %; Neutrophils # 11.83 10^3/uL (1.8-7.7); Neutrophils % 57.9 %; Nucleated Red Blood Cells % 0 %; Platelet Count 550 10^3/cmm (130-400); Red Blood Count 4.16 10^6/uL (4.1-5.3); Red Cell Distribution Width 17.1 % (12.1-15.1); White Blood Count 20.4 10^3/uL (4.0-10.0)
[2021-04-21 04:43] LABS: Anion Gap 13.4 (5-19); Blood Urea Nitrogen 12 mg/dL (8-23); Calcium 8.6 mg/dL (8.5-10.5); Carbon Dioxide 27 mmol/L (22-29); Chloride 100 mmol/L (98-107); Glomerular Filtration Rate 62.1 mL/min (90-130); Glucose 125 mg/dL (65-115); Osmolality Calculated 285 mOsm/kg (285-295); Potassium 3.4 mmol/L (3.5-5.1); Sodium 137 mmol/L (136-145)
[2021-04-21] MEDS: piperacillin-tazobactam 3.375 GM in sodium chloride 0.9% (plus) 50 ML IV ×3 (04:58→20:25)
--- NOTE | 2021-04-21 09:21 | USCV_ITS ---
Zoila May Age: 71 Gender: F : 1950 Exam Date: 04/21/2021 10:35 Ordering Phys: Marco Celestin MD Technologist: Reva Green Exam Location: [facility] [place] Indication: sob BP: / HR: 75 Rhythm: Sinus Technical Quality: Fair MEASUREMENTS (Male / Female) Normal Values 2D ECHO LV Diastolic Diameter PLAX 3.8 cm 4.2 - 5.9 / 3.9 - 5.3 cm LV Systolic Diameter PLAX 2.5 cm IVS Diastolic Thickness 0.9 cm 0.6 - 1.0 / 0.6 - 0.9 cm IVS Systolic Thickness 1.6 cm LVPW Diastolic Thickness 0.8 cm 0.6 - 1.0 / 0.6 - 0.9 cm LVPW Systolic Thickness 0.9 cm LVOT Diameter 2.0 cm LV Ejection Fraction 2D Teich 53.1 % LV Ejection Fraction MOD 2C 51.1 % LV Ejection Fraction 2C AL 51.2 % LA Diameter 2.6 cm LA Width 3.0 cm LA Height 5.0 cm RA Width 3.4 cm RA Height 3.8 cm Aorta at Sinotubular Diameter 3.0 cm M-MODE LV Diastolic Diameter MM 5.0 cm 4.2 - 5.9 / 3.9 - 5.3 cm LV Systolic Diameter MM 2.7 cm LV Ejection Fraction MM Teich 77.2 % IVS Diastolic Thickness MM 1.0 cm 0.6 - 1.0 / 0.6 - 0.9 cm IVS Systolic Thickness MM 1.6 cm LVPW Diastolic Thickness MM 0.6 cm 0.6 - 1.0 / 0.6 - 0.9 cm LVPW Systolic Thickness MM 1.5 cm Aortic Annulus Diameter 2.8 cm LA Ao Ratio MM 1.1 MV E Point Septal Separation 0.3 cm DOPPLER AV Peak Velocity 156.0 cm/s LVOT Peak Velocity 137.0 cm/s AV Area Cont Eq vti 2.8 cm squared AV Area Cont Eq pk 2.8 cm squared MV Peak Velocity 134.0 cm/s MV Area PHT 3.0 cm squared Mitral E to A Ratio 0.9 MV E' Velocity 57.0 cm/s Mitral E to MV E' Ratio 9.6 Mitral E to LV E' Lateral Ratio 10.0 Mitral E to LV E' Septal Ratio 9.3 TR Peak Velocity 327.1 cm/s TR Peak Gradient 42.8 mmHg TR Mean Velocity 222.2 cm/s TR Mean Gradient 23.2 mmHg TR Velocity Time Integral 104.6 cm Right Atrial Pressure 3.0 mmHg Pulmonary Artery Systolic Pressu 45.8 mmHg PV Peak Velocity 95.0 cm/s RV Acceleration Time 0.1 s RV Ejection Time 0.3 s RV AcT/ET 0.4 FINDINGS Left Ventricle Normal left ventricular cavity size. Normal left ventricular systolic function. No regional wall motion abnormalities. Left ventricular ejection fraction is estimated at 60 %. Grade I/IV diastolic dysfunction (abnormal relaxation filling pattern), normal to mildly elevated filling pressures. Right Ventricle The right ventricle is normal in size and function. RVSP could not be calculated due to incomplete tricuspid regurgitation velocity profile. Right Atrium The right atrium is normal in size. Left Atrium The left atrium is normal in size. Mitral Valve Structurally normal mitral valve without significant stenosis or prolapse. There is no mitral regurgitation. Aortic Valve Structurally normal aortic valve without significant sclerosis or stenosis. There is no aortic regurgitation. Tricuspid Valve Structurally normal tricuspid valve without significant stenosis or regurgitation. Pulmonic Valve Structurally normal pulmonic valve without significant stenosis. There is no pulmonic regurgitation. Pericardium Normal pericardium without effusion. Aorta Normal ascending aorta dimension. CONCLUSIONS 1-Normal left ventricular cavity size. Normal left ventricular systolic function. No regional wall motion abnormalities. Left ventricular ejection fraction is estimated at 60 %. Grade I/IV diastolic dysfunction (abnormal relaxation filling pattern), normal to mildly elevated filling pressures. 2-There is no pericardial effusion. 3-No significant valve abnormalities. 4-The right ventricle is normal in size and function. RVSP could not be calculated due to incomplete tricuspid regurgitation velocity profile. 5-Right atrial pressure is around 5 mm of mercury. 6-There are no prior echocardiogram studies to compare. Marylou Mooney MD (Electronically Signed) Final Date: 24 April 2021 14:13 S
[2021-04-21] MEDS: polyethylene glycol 3350 Pkt 17 gm PO (09:24)
[2021-04-21] MEDS: sucralfate 1 gm Tablet PO ×3 (09:24→20:25)
[2021-04-21] MEDS: pantoprazole DR 40 mg Tablet PO ×2 (09:24→17:26)
[2021-04-21] MEDS: predniSONE 20 mg Tablet 40 MG PO (09:24)
[2021-04-21] MEDS: sennosides-docusate Tablet 1 TAB PO (09:24)
--- NOTE | 2021-04-21 09:37 | ECG_ITS ---
[facility] Test Date: 2021-04-21 Pat Name: May Cummings Department: Room: 103 Gender: Female Press Officer: : 1950 Requested By: Marco Celestin Order Number: [id number] Lev MD: Salvatore Jones M.D. Measurements Intervals [place] Rate: 69 P: 76 DE: 179 QRS: 65 QRSD: 80 T: 65 QT: 421 QTc: 453 Interpretive Statements SINUS RHYTHM Compared to ECG 04/20/2021 23:56:44 Sinus tachycardia no longer present Electronically Signed On 04-22-2021 18:46:42 CDT by Salvatore Jones M.D. [id number]
--- NOTE | 2021-04-21 10:30 | PC.CHAP ---
Pastoral Care Encounter/Spiritual Assessment Type of Contact [] Declined track man visit [] Patient/Family/Request visit [] Outpatient visit [] Follow-up visit [] Physician referral [] Code/Alert [x] Routine visit [] Staff referral [] Actively dying [x] Patient sleeping [] Family support [] [] Out of room [] Palliative care [] [] Receiving care in room [] Pre-surgical visit [] Trauma [] Long length of stay [] ICU visit [] Other: Relational/Emotional Strength [] Patient feels connected with others/family/visitors/staff [] Distress [] Loneliness/isolation [] Abandonment Spirituality of Patient [] Person of Jina [] Attends Tenriism of their Jina [] Believes in Prayer [] Reads Bible or Confucianist materials [] There are Spiritual issues to be addressed Field Machinist Interventions [x] Prayer [] Active listening [] Non-anxious presence [] Spiritual/emotional support [] Crisis/trauma care [] Spiritual counseling [] Bereavement support [] Provided bereavement packet [] Provided Bible/devotional materials [] Provided toy/stuffed animal, coloring book to patient or family member [] Provided Communion [] Anointing/[place] [] Salvation [x] Completed spiritual assessment [] Other: Impact on Illness or Injury [] Angry [] Fearful [] Anxious [] Often cries [] Exhaustion [] Unable to work [] Unable to attend latter-day [] Unable to walk/stand [] Unable to read [] Unable to drive [] Unable to eat/drink [] Unable to sleep [] Unable to be with family [] Patient intubated [] Other: Summary Time spent with patient
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
[2021-04-21 10:42] LABS: Troponin(5th) Baseline 6 ng/L (0-10)
[2021-04-21 10:49] LABS: NT Pro B Type Natriuretic Pept 128 pg/mL (0-125)
[2021-04-21] MEDS: ipratropium-albuterol 3 mL Neb INHALATION ×4 (11:31→23:32)
--- NOTE | 2021-04-21 11:37 | ECG_ITS ---
[facility] Test Date: 2021-04-21 Pat Name: May Cummings Department: Room: 103 Gender: Female Lease Administration Analyst: : 1950 Requested By: Marco Celestin Order Number: [id number] Lev MD: Salvatore Jones M.D. Measurements Intervals [place] Rate: 78 P: 57 UT: 171 QRS: 59 QRSD: 89 T: 65 QT: 396 QTc: 453 Interpretive Statements SINUS RHYTHM Compared to ECG 04/20/2021 23:56:44 Sinus tachycardia no longer present Electronically Signed On 04-22-2021 19:01:46 CDT by Salvatore Jones M.D. [id number]
[2021-04-21 12:29] LABS: Troponin 5 2HR Delta 0 ABS# (0-10)
--- NOTE | 2021-04-21 14:44 | P.PN_ITS ---
Subjective Subjective: Interval history: Patient was examined this morning, she tells me that she just not feeling well, she is having some left-sided chest discomfort, she is a bit short of breath, on 2 L, no nausea, no vomiting, no lightheadedness, dizziness, has a nonproductive cough, Vitals/I&O/Wt Last Vital Signs Temp 97.7 F 04/21/21 11:13 Pulse 72 04/21/21 11:38 Resp 18 04/21/21 11:31 BP 119/81 04/21/21 11:13 Pulse Ox 97 04/21/21 11:31 04/20/21 04/21/21 04/21/21 22:59 06:59 14:59 Intake Total 50 / 50 500 / 550 50 / 50 Output Total 150 / 150 Balance 50 / 50 350 / 400 50 / 50 Weight last 48 hrs Weight 70.307 kg Physical Exam Const: COMMON NORMALS: no acute distress and alert ORIENTATION/CONSCIOUSNESS: Yes awake, Yes oriented to person, Yes oriented to place and Yes oriented to time Chest: COMMONS NORMALS: normal inspection of the chest Resp: COMMON NORMALS: normal respiratory effort, No retractions and No use of accessory muscles AUSCULTATION: crackles and wheezes Cardio: COMMON NORMALS: regular rate, regular rhythm, S1 normal heart sound present and S2 normal heart sound present RATE: regular rate RHYTHM: regular rhythm HEART SOUNDS: S1 normal heart sound present and S2 normal heart sound present GI: COMMON NORMALS: Normal to inspection, nondistended, normoactive bowel sounds present, Soft to palpation and non-tender PALPATION: Yes Soft to palpation Extremity: COMMON NORMALS: no pedal edema Neuro: SENSORIUM/ORIENTATION: Yes alert, Yes oriented to person, Yes oriented to place and Yes oriented to time Data : 04/21/21 03:37 04/21/21 03:37 Micro: Microbiology 04/21/21 03:45 Legionella Urinary Antigen - Final Urine,Clean Catch Bacterial Antigens - Final 04/20/21 21:02 Blood Culture - Preliminary Blood SPECIMEN COLLECTED 04/20/21 20:54 Blood Culture - Preliminary Blood SPECIMEN COLLECTED A&P Assessment and plan (1) Non-small cell cancer of left lung: Status: Acute (2) Left upper lobe pulmonary nodule: Status: Acute (3) COPD (chronic obstructive pulmonary disease): Status: Acute Qualifiers: COPD type: emphysema Emphysema type: centrilobular Qualified Code(s): J43.2 - Centrilobular emphysema (4) Postobstructive pneumonia: Status: Acute (5) Sepsis: Status: Acute Additional A&P Information Sepsis secondary to postobstructive pneumonia Criteria met with tachypnea, fever, WBC 20.4, lactic acid gema, l she received 1 L normal saline and ceftriaxone azithromycin in the emergency room Considering history of postobstructive pneumonia and recurrent infections, for now continue with vancomycin and Zosyn Follow blood cultures, sputum cultures urine bacterial antigens Currently on [address] angiogram no evidence of pulmonary emboli CT chest mild interval worsening of the atelectasis and/or pneumonia of the left upper lobe, left upper lobe bronchus is occluded She has had a bronchoscopy/EBUS by Dr. Santos in the past Consult Dr. Mercado Non-small cell cancer of left lung PET scan is showing atelectasis and mild increased activity at the rim of atelectasis on the left side vascular patient is complaining about pleuritic chest pain as well Plan for lung perfusion studies, in preparation for possible pneumonectomy For pleuritic chest pain she received morphine 4 mg in the ER, monitor for signs of sedation and respiratory depression likely secondary to postobstructive pneumonia on the left -Troponins, no significant delta troponin, BNP 128 -EKG sinus rhythm, -cardiac echo Hoarseness of voice: History of hypothyroidism, Check TSH, continue methimazole for now No evidence of meta stasis of cancer in oropharynx Full code DVT prophylaxis Lovenox Cardiac diet Attestations Medical Necessity Statement*: Patient requires hospitalization for sepsis secondary to postobstructive pneumonia, pleuritic chest pain, inpatient, greater than 2 midnights, Coding Level of Care Code Acute Medical Certification Specialist for [facility] Fwd Diagnoses Non-small cell cancer of left lung C34.92 Left upper lobe pulmonary nodule R91.1 COPD (chronic obstructive pulmonary disease) J43.2 COPD type: emphysema Emphysema type: centrilobular Postobstructive pneumonia J18.9 Sepsis A41.9
--- NOTE | 2021-04-21 15:37 | ECG_ITS ---
[facility] Test Date: 2021-04-21 Pat Name: May Cummings Department: Room: 103 Gender: Female Equity Structurer: : 1950 Requested By: Marco Celestin Order Number: [id number] Lev MD: Salvatore Jones M.D. Measurements Intervals [place] Rate: 83 P: 43 CO: 166 QRS: 54 QRSD: 81 T: 61 QT: 392 QTc: 463 Interpretive Statements SINUS RHYTHM Compared to ECG 04/21/2021 13:38:59 No significant changes Electronically Signed On 04-22-2021 19:00:54 CDT by Salvatore Jones M.D. [email or web address] ([email or web address] [email or web address]/[id number]
[2021-04-21 17:20] LABS: Troponin 5 6HR Delta 0 ng/L (0-12)
[2021-04-21] MEDS: HYDROcodone-acetaminophen 5-325 mg Tablet 0.5 TAB PO (17:25)
[2021-04-21] MEDS: clopidogrel 75 mg Tablet PO (20:24)
[2021-04-21] MEDS: methIMAzole 5 MG Tablet 10 MG PO (20:24)
[2021-04-21] MEDS: atorvastatin 40 mg Tablet PO (20:25)
[2021-04-21] MEDS: atenolol 50 mg Tablet PO (20:25)
[2021-04-21] MEDS: lisinopril 10 mg Tablet PO (20:25)
--- NOTE | 2021-04-21 20:37 | PC.NURSE ---
Received report from RENUKA Pa. Patient resting in bed watching tv. Patient denies needs at this time. No distress observed.
[2021-04-22] VITALS (15 sets, daily range): BP systolic 102–131; BP diastolic 62–75; PULSE 62–95; RESP 16–22; TEMP 36.7–37.2; O2SAT 80–96
--- NOTE | 2021-04-22 02:43 | PC.NURSE ---
Patient medsurg overflow transferred to [facility]. Report called to AINSLEY Mckeon. Patient very pleasant and ambulatory. Patient reports feeling much better at transfer.
--- NOTE | 2021-04-22 02:46 | PC.NURSE ---
Received report from CSU nurse Irasema, Pt to the floor by wheelchair at 0235, Pt ambulated to the bed with stand by assist, this nurse assumed care of pt.
[2021-04-22 03:28] LABS: Basophils % 0.2 %; Eosinophils % 0.1 %; Hematocrit 35.6 % (37.0-47.0); Hemoglobin 10.8 g/dL (11.5-15.3); Lymphocytes # 2.4 10^3/uL (0.8-4.8); Mean Corpuscular HGB Conc 30.3 g/dL (30.0-36.0); Mean Corpuscular Hemoglobin 26.7 pg (28.0-34.0); Mean Corpuscular Volume 87.9 fL (81-99); Mean Platelet Volume 9.5 fL (7.4-10.4); Monocytes # 0.6 10^3/uL (0.2-0.9); Monocytes % 3.3 %; Neutrophils # 15.33 10^3/uL (1.8-7.7); Neutrophils % 82.8 %; Nucleated Red Blood Cells % 0 %; Platelet Count 576 10^3/cmm (130-400); Red Blood Count 4.05 10^6/uL (4.1-5.3); Red Cell Distribution Width 17.2 % (12.1-15.1); White Blood Count 18.5 10^3/uL (4.0-10.0)
[2021-04-22 03:53] LABS: Alanine Aminotransferase 7 U/L (0-33); Albumin Level 3.4 g/dL (3.5-5.2); Alkaline Phosphatase 83 IU/L (35-105); Aspartate Amino Transferase 13 U/L (0-32); Blood Urea Nitrogen 14 mg/dL (8-23); Calcium 9.1 mg/dL (8.5-10.5); Carbon Dioxide 24 mmol/L (22-29); Chloride 101 mmol/L (98-107); Globulin 3.9 g/dL (1.3-4.6); Glomerular Filtration Rate 62.1 mL/min (90-130); Glucose 198 mg/dL (65-115); Magnesium 2.2 mg/dL (1.7-2.3); Osmolality Calculated 294 mOsm/kg (285-295); Phosphorus 1.8 mg/dL (2.5-4.5); Sodium 139 mmol/L (136-145); Total Bilirubin 0.3 mg/dL (0.15-1.2); Total Protein 7.3 g/dL (6.6-8.7)
[2021-04-22 04:02] LABS: NT Pro B Type Natriuretic Pept 235 pg/mL (0-125); Procalcitonin 0.18 ng/mL (0-0.5)
[2021-04-22] MEDS: ipratropium-albuterol 3 mL Neb INHALATION ×5 (04:33→19:57)
[2021-04-22 04:34] LABS: Anion Gap 17.5 (5-19); Potassium 3.5 mmol/L (3.5-5.1)
[2021-04-22] MEDS: enoxaparin 40 mg/0.4 mL Syringe SUBCUT (04:57)
[2021-04-22] MEDS: vancomycin 1,250 MG/250 ML PIGGYBACK 250 MG IV (04:57)
[2021-04-22] MEDS: piperacillin-tazobactam 3.375 GM in sodium chloride 0.9% (plus) 50 ML IV ×3 (06:58→21:33)
--- NOTE | 2021-04-22 07:00 | XR_ITS ---
WS: [id number] Portable AP upright chest, 04/22/2021 Clinical Data: sob Comparison: Portable chest, 04/20/2021. Findings: The left upper lobe consolidation and scarring has not changed. The right lung remains jameel r. No nodules or effusions are seen. The heart is normal. The pulmonary vascularity is not increased. No pneumothorax is noted. XR/XR chest 1V portable [id number] Impression: No change in left upper lobe consolidation and scarring.
[2021-04-22] MEDS: pantoprazole DR 40 mg Tablet PO ×2 (07:48→17:15)
[2021-04-22] MEDS: polyethylene glycol 3350 Pkt 17 gm PO (07:48)
[2021-04-22] MEDS: sennosides-docusate Tablet 1 TAB PO (07:48)
[2021-04-22] MEDS: HYDROcodone-acetaminophen 5-325 mg Tablet 1 TAB PO ×2 (07:48→21:31)
[2021-04-22] MEDS: sucralfate 1 gm Tablet PO ×3 (07:49→21:32)
--- NOTE | 2021-04-22 10:23 | NM_ITS ---
WS: [id number] NUCLEAR MEDICINE SPLIT PERFUSION STUDY CLINICAL INFORMATION: SPLIT PERFUSION STUDY FOR LEFT PNEUMONECTOMY TECHNIQUE: Perfusion lung scan with 4.6 mCi technetium 99m DTPA. FINDINGS: Normal symmetric perfusion in both lungs. No perfusion defects. Left upper zone: 6.9% Left middle zone: 26.4% Left lower zone: 16.5% Total left lun.9% Right upper zone: 8.6% Right middle zone: 27.8% Right lower zone: 13.7% Total right lun.1% NM/MD pul perfusion [id number] IMPRESSION: 1. Perfusion study acquired for preoperative planning purposes
--- NOTE | 2021-04-22 11:02 | PC.CHAP ---
Pastoral Care Encounter/Spiritual Assessment Type of Contact [] Declined training and development specialist visit [] Patient/Family/Request visit [] Outpatient visit [] Follow-up visit [] Physician referral [] Code/Alert [x] Routine visit [] Staff referral [] Actively dying [] Patient sleeping [] Family support [] [] Out of room [] Palliative care [] [x] Receiving care in room [] Pre-surgical visit [] Trauma [] Long length of stay [] ICU visit [] Other: Relational/Emotional Strength [x] Patient feels connected with others/family/visitors/staff [] Distress [] Loneliness/isolation [] Abandonment Spirituality of Patient [x] Person of Jina [] Attends Spiritism of their Jina [x] Believes in Prayer [] Reads Bible or Restoration materials [] There are 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 issues 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 [x] Prayer [x] Active listening [x] Non-anxious presence [x] Spiritual/emotional support [] Crisis/trauma care [x] Spiritual counseling [] Bereavement support [] Provided bereavement packet [] Provided Bible/devotional materials [] Provided toy/stuffed animal, coloring book to patient or family member [] Provided Communion [] Anointing/[place] [] Salvation [x] Completed spiritual assessment [] Other: Impact on Illness or Injury [] Angry [] Fearful [x] Anxious [] Often cries [] Exhaustion [] Unable to work [] Unable to attend scientologist [] Unable to walk/stand [] Unable to read [] Unable to drive [] Unable to eat/drink [] Unable to sleep [] Unable to be with family [] Patient intubated [] Other: Summary feeling better not sure about the recovert time, has good attitude, will be going home +1 Time spent with patient 10 mins
--- NOTE | 2021-04-22 16:32 | P.CONIM_ITS ---
Providers/Reason For Consult Consulting Physician/Specialty*: General Surgery Dr. Medina Reason for Consult*: Port-A-Cath placement Attending Physician: Marco Celestin MD Primary Care Provider: Maria Gomez APN History of Present Illness History of Present Illness May Cummings is a 71 year old female who is a lifelong smoker who presented with pneumonia and was diagnosed with a left lung mass with biopsy confirming squamous cell carcinoma. Patient states that she has had bilateral clavicle fractures. Denies any history of central line placement. Review of Systems General: Reports: 10 or more systems reviewed and unremarkable except in HPI and below Meds/Allergies Home Medications and Allergies Home Medications Medication Instructions Recorded Confirmed Last Taken Type lisinopril 10 mg tablet 10 mg PO DAILY@20 tab 11/19/19 04/20/21 04/19/21 History methimazole 10 mg tablet 10 mg PO DAILY@20 tab 11/19/19 04/20/21 04/19/21 History polyethylene glycol 3350 17 gram 17 gm PO DAILY@08 each 11/19/19 04/20/21 04/20/21 History oral powder packet Benefiber Healthy Shape See Rx Instructions .ROUTE .COMPLEX 03/08/21 04/20/21 04/20/21 History Probiotic 2 tab PO QAM 03/08/21 04/20/21 04/20/21 History albuterol sulfate [ProAir HFA] 2 puff INHALATION Q4H PRN 03/08/21 04/20/21 03/25/21 History atenolol 50 mg PO DAILY@20 03/08/21 04/20/21 04/19/21 History clopidogrel 75 mg PO DAILY@20 03/08/21 04/20/21 04/19/21 History mv,Ca,ir,Vi-DM-nyr-gel-patty-PAB 2 cap PO DAILY 03/08/21 04/20/21 04/20/21 History pantoprazole [Protonix] 40 mg PO BID 03/08/21 04/20/21 04/20/21 08:00 History sumatriptan succinate 100 mg PO BID PRN 03/08/21 04/20/21 04/19/21 History cyclobenzaprine 10 mg tablet 10 mg PO PRN 03/17/21 04/20/21 03/15/21 History dicyclomine 20 mg PO QID PRN 03/26/21 04/20/21 03/25/21 History Carafate 1 gm PO TID 04/20/21 04/20/21 04/20/21 13:00 History Unknown Inhaler Name See Rx Instructions .ROUTE .COMPLEX 04/20/21 04/20/21 Unknown History calcium-vitamin D3-vitamin K 1 tab PO DAILY 04/20/21 04/20/21 04/19/21 History [Calcium Soft Chew] Allergies Allergy/AdvReac Type Severity Reaction Status Date / Time No Known Allergies Allergy Verified 04/20/21 20:03 Current Medications Current Medications Generic Name Dose Route Start Last Admin Trade Name Freq PRN Reason Stop Dose Admin Hydrocodone Bitart/Acetaminophen 1 tab 04/21/21 16:56 04/22/21 07:48 Hydrocodone-Acetaminophen 5-325 Mg Tablet PO 1 tab Q4H PRN Administration MODERATE PAIN Albuterol/Ipratropium 3 ml 04/21/21 12:00 04/22/21 15:38 Ipratropium-Albuterol 3 Ml Neb INHALATION 3 ml Q4H.RESPIRATORY MARIANO Administration Atenolol 50 mg 04/21/21 20:00 04/21/21 20:25 Atenolol 50 Mg Tablet PO 50 mg DAILY@20 MARIANO Administration Atorvastatin Calcium 40 mg 04/21/21 21:00 04/21/21 20:25 Atorvastatin 40 Mg Tablet PO 40 mg BEDTIME MARIANO Administration Clopidogrel Bisulfate 75 mg 04/21/21 20:00 04/21/21 20:24 Clopidogrel 75 Mg Tablet PO 75 mg DAILY@20 MARIANO Administration Enoxaparin Sodium 40 mg 04/21/21 02:23 04/22/21 04:57 Enoxaparin 40 Mg/0.4 Ml Syringe SUBCUT 40 mg Q24H MARIANO Administration Piperacillin Sod/Tazobactam 50 mls @ 12.5 mls/hr 04/21/21 05:00 04/22/21 13:05 Sod 3.375 gm/ Sodium Chloride IV 12.5 mls/hr Q8H MARIANO Administration Protocol Vancomycin/PEG/NADA/Lysine/Water 1,250 mg in 250 mls @ 250 mls/hr 04/21/21 04:00 04/22/21 07:35 Vancocin IV Infused Q24H MARIANO Infusion Lisinopril 10 mg 04/21/21 20:00 04/21/21 20:25 Lisinopril 10 Mg Tablet PO 10 mg DAILY@20 MARIANO Administration Methimazole 10 mg 04/21/21 20:00 04/21/21 20:24 Methimazole 5 Mg Tablet PO 10 mg DAILY@20 MARIANO Administration Methylprednisolone Sodium Succinate 40 mg 04/21/21 12:00 04/22/21 13:04 Methylprednisolone Sod Succ 40 Mg/Ml Inj IVP 40 mg Q8H MARIANO Administration Pantoprazole Sodium 40 mg 04/21/21 09:00 04/22/21 07:[address] 40 Mg Tablet PO 40 mg BID MARIANO Administration Polyethylene Glycol 17 gm 04/21/21 08:00 04/22/21 07:48 Polyethylene Glycol 3350 Pkt 17 Gm PO 17 gm DAILY@08 MARIANO Administration Senna/Docusate Sodium 1 tab 04/21/21 09:00 04/22/21 07:48 Sennosides-Docusate Tablet PO 1 tab DAILY MARIANO Administration Sucralfate 1 gm 04/21/21 09:00 04/22/21 07:49 Sucralfate 1 Gm Tablet PO 1 gm TID MARIANO Administration PFSH Acute PFSH: Medical History Anxiety disorder Basilar artery aneurysm Constipation Dyslipidemia Gastritis Hemorrhoid Hypertension Continue on atenolol, hold lisinopril until seen by primary care provider Hyperthyroidism Continue on home methimazole Insomnia Migraine Plantar fasciitis Statin intolerance Surgical History H/O section H/O splenectomy 2007 History of esophagogastroduodenoscopy (EGD) 2019 -gastritis S/P coil embolization of cerebral aneurysm 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, stent subsequently removed Status post colonoscopy 2018: Normal repeat in 10 years Family History Mother Diabetes Father Heart disease Denies family history of Anesthesia complication Bleeding disorder Social History Smoking and tobacco status: former smoker Quit status (tobacco): has quit using tobacco Year quit tobacco: 2017 [id number] Second hand smoke exposure: No Smoking risk assessment/counseling performed?: Yes Alcohol intake: current Alcohol intake frequency: holidays/special occasions only Lives independently: Yes Household members: spouse Marital status: service: No Current occupational status: retired Pets and animals: Yes History of recent travel: No Current gender identity: Female Vitals/I&O/Wt Last Vital Signs Temp 98.5 F 04/22/21 07:51 Pulse 82 04/22/21 15:44 Resp 17 04/22/21 15:38 BP 131/75 04/22/21 07:51 Pulse Ox 95 04/22/21 15:38 04/22/21 04/22/21 04/22/21 06:59 14:59 22:59 Intake Total 290 / 750 900 / 900 Balance 290 / 750 900 / 900 Weight last 48 hrs Weight 155 lb Physical Exam Narrative: EXAM NARRATIVE: HEENT: Normocephalic Eye: Sclera /conjunctiva normal Abdomen: Soft to palpation Neurological: Oriented to place person and time Skin: Intact, no lesions appreciated on gross exam Data Micro: Micro: Microbiology 04/20/21 20:54 Blood Culture - Pr eliminary Blood NEGATIVE TO TITO E 04/20/21 21:02 Blood Culture - Pr eliminary Blood NEGATIVE TO TITO E A&P Assessment and plan (1) 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 She needs a central venous access for chemotherapy. Plan for PowerPort placement under MAC tomorrow N.p.o. after midnight Procedure, risks, benefits and alternatives have been discussed with the patient who wishes to proceed with surgery. 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
--- NOTE | 2021-04-22 17:33 | PM.PN ---
Subjective Subjective: Interval history: Patient was seen this morning, she tells me that she is feeling a lot better, no fevers overnight, still having a cough, still some short of nasal breath with exertion, no nausea, vomiting, no chest pain Vitals/I&O/Wt Last Vital Signs Temp 98.9 F 04/22/21 16:00 Pulse 95 04/22/21 16:00 Resp 18 04/22/21 16:00 BP 111/66 04/22/21 16:00 Pulse Ox 96 04/22/21 16:00 04/22/21 04/22/21 04/22/21 06:59 14:59 22:59 Intake Total 290 / 750 900 / 900 50 / 950 Balance 290 / 750 900 / 900 50 / 950 Physical Exam Const: COMMON NORMALS: no acute distress and patient oriented x3 Resp: COMMON NORMALS: normal respiratory effort, No retractions and No use of accessory muscles AUSCULTATION: wheezes Cardio: COMMON NORMALS: regular rate, regular rhythm, S1 normal heart sound present and S2 normal heart sound present RATE: regular rate RHYTHM: regular rhythm HEART SOUNDS: S1 normal heart sound present and S2 normal heart sound present GI: COMMON NORMALS: Normal to inspection, nondistended, normoactive bowel sounds present, Soft to palpation, non-tender and No hepatosplenomegaly present PALPATION: Yes Soft to palpation and Yes No hepatosplenomegaly present Extremity: COMMON NORMALS: no pedal edema Neuro: COMMON NORMALS: patient oriented x3 Psych: COMMON NORMALS: mental status grossly normal Data : 04/22/21 02:53 04/22/21 02:53 Micro: Microbiology 04/20/21 20:54 Blood Culture - Preliminary Blood NEGATIVE TO DATE 04/20/21 21:02 Blood Culture - Preliminary Blood NEGATIVE TO DATE A&P Assessment and plan (1) Non-small cell cancer of left lung: Status: Acute (2) Left upper lobe pulmonary nodule: Status: Acute (3) COPD (chronic obstructive pulmonary disease): Status: Acute Qualifiers: COPD type: emphysema Emphysema type: centrilobular Qualified Code(s): J43.2 - Centrilobular emphysema (4) Postobstructive pneumonia: Status: Acute (5) Sepsis: Status: Acute Additional A&P Information Sepsis secondary to postobstructive pneumonia Criteria met with tachypnea, fever, WBC 20.4, lactic acid gema, l she received 1 L normal saline and ceftriaxone azithromycin in the emergency room Considering history of postobstructive pneumonia and recurrent infections, for now continue with vancomycin and Zosyn Follow blood cultures, sputum cultures urine bacterial antigens Currently on 2 L, clinically feeling better CT angiogram no evidence of pulmonary emboli CT chest mild interval worsening of the atelectasis and/or pneumonia of the left upper lobe, left upper lobe bronchus is occluded She has had a bronchoscopy/EBUS by Dr. Mercado in the past Consult Dr. Mercado Patient had VQ scan, for consideration of pneumonectomy, her case was discussed with Dr. Matos in tumor board, after discussion with VQ scan results with patient and Dr. Watts, patient will pursue chemotherapy, N.p.o. midnight, for Port-A-Cath placement by Dr. Medina Non-small cell cancer of left lung PET scan is showing atelectasis and mild increased activity at the rim of atelectasis on the left side vascular patient is complaining about pleuritic chest pain as well For pleuritic chest pain she received morphine 4 mg in the ER, monitor for signs of sedation and respiratory depression likely secondary to postobstructive pneumonia on the left -Troponins, no significant delta troponin, BNP 128 -EKG sinus rhythm, -cardiac echo pending Hoarseness of voice: History of hypothyroidism, Check TSH, continue methimazole for now No evidence of meta stasis of cancer in oropharynx Full code DVT prophylaxis Lovenox Cardiac diet Attestations Medical Necessity Statement*: Patient requires hospitalization for postobstructive pneumonia, malignancy, requiring port placement Coding Level of Care Code 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
[2021-04-22] MEDS: atenolol 50 mg Tablet PO (21:31)
[2021-04-22] MEDS: lisinopril 10 mg Tablet PO (21:32)
[2021-04-22] MEDS: methIMAzole 5 MG Tablet 10 MG PO (21:32)
[2021-04-22] MEDS: atorvastatin 40 mg Tablet PO (21:32)
[2021-04-22] MEDS: clopidogrel 75 mg Tablet PO (21:32)
[2021-04-23] VITALS (28 sets, daily range): BP systolic 80–163; BP diastolic 44–95; PULSE 63–95; RESP 15–22; TEMP 36.3–37.1; O2SAT 93–99
--- NOTE | 2021-04-23 | SC_ITS ---
WS: [id number] Port insertion, C-arm fluoroscopy, 04/23/2021 Clinical Data: PORT Comparison: Portable chest, 04/22/2021. Findings: The right Port-A-Cath has been inserted into the right subclavian vein and ends in the superior vena cava. SC/C-arm FL for CVA [id number] Impression: Insertion of right Port-A-Cath.
--- NOTE | 2021-04-23 | SCC_ITS ---
Procedure Done: Placement of PowerPort in the right subclavian vein Fluoroscopic guidance and interpretation for placement of catheter 40.9 seconds of fluoroscopic guidance, for a cumulative dose of 4.13 mGy, was provided to Dr. Medina by the radiology department. C-arm images of the chest were saved for the patient's permanent record. [facility]
[2021-04-23 02:54] LABS: Basophils # 0.1 10^3/uL (0.0-0.1); Basophils % 0.2 %; Hematocrit 30.9 % (37.0-47.0); Hemoglobin 9.7 g/dL (11.5-15.3); Lymphocytes # 2.5 10^3/uL (0.8-4.8); Lymphocytes % 9.8 %; Mean Corpuscular HGB Conc 31.4 g/dL (30.0-36.0); Mean Corpuscular Hemoglobin 26.8 pg (28.0-34.0); Mean Corpuscular Volume 85.4 fL (81-99); Mean Platelet Volume 9.1 fL (7.4-10.4); Monocytes # 1.4 10^3/uL (0.2-0.9); Monocytes % 5.3 %; Neutrophils # 21.78 10^3/uL (1.8-7.7); Neutrophils % 83.7 %; Nucleated Red Blood Cells % 0 %; Platelet Count 545 10^3/cmm (130-400); Red Blood Count 3.62 10^6/uL (4.1-5.3); Red Cell Distribution Width 17.2 % (12.1-15.1)
[2021-04-23 03:25] LABS: Alanine Aminotransferase 13 U/L (0-33); Alkaline Phosphatase 66 IU/L (35-105); Anion Gap 14.3 (5-19); Aspartate Amino Transferase 20 U/L (0-32); Blood Urea Nitrogen 25 mg/dL (8-23); C Reactive Protein 82.2 mg/L (0.0-4.9); Calcium 8.8 mg/dL (8.5-10.5); Carbon Dioxide 26 mmol/L (22-29); Chloride 107 mmol/L (98-107); Globulin 3.4 g/dL (1.3-4.6); Glomerular Filtration Rate 37.3 mL/min (90-130); Glucose 157 mg/dL (65-115); Magnesium 2.1 mg/dL (1.7-2.3); Osmolality Calculated 304 mOsm/kg (285-295); Phosphorus 2.9 mg/dL (2.5-4.5); Potassium 4.3 mmol/L (3.5-5.1); Sodium 143 mmol/L (136-145); Total Bilirubin 0.2 mg/dL (0.15-1.2); Total Protein 6.4 g/dL (6.6-8.7)
[2021-04-23 03:34] LABS: Vancomycin Trough 9.2 ug/mL (10-15)
[2021-04-23 03:42] LABS: NT Pro B Type Natriuretic Pept 383 pg/mL (0-125); Procalcitonin 0.12 ng/mL (0-0.5)
[2021-04-23] MEDS: ipratropium-albuterol 3 mL Neb INHALATION ×4 (04:28→20:02)
[2021-04-23] MEDS: enoxaparin 40 mg/0.4 mL Syringe SUBCUT (04:47)
[2021-04-23] MEDS: vancomycin 1,250 MG/250 ML PIGGYBACK 250 MG IV (04:48)
[2021-04-23] MEDS: piperacillin-tazobactam 3.375 GM in sodium chloride 0.9% (plus) 50 ML IV ×2 (06:24→21:26)
[2021-04-23] MEDS: sucralfate 1 gm Tablet PO ×3 (07:55→21:26)
[2021-04-23] MEDS: sennosides-docusate Tablet 1 TAB PO (07:55)
[2021-04-23] MEDS: pantoprazole DR 40 mg Tablet PO ×2 (07:55→17:15)
[2021-04-23] MEDS: HYDROcodone-acetaminophen 5-325 mg Tablet 1 TAB PO ×3 (10:12→23:49)
[2021-04-23] MEDS: fentaNYL 50 mcg/mL INJ 2mL IVP (11:55)
--- NOTE | 2021-04-23 11:56 | P.PN_ITS ---
Subjective Subjective: Interval history: no issues overnight, patient is anxious Vitals/I&O/Wt Last Vital Signs Temp 98.6 F 04/23/21 11:13 Pulse 75 04/23/21 11:13 Resp 18 04/23/21 11:13 BP 137/72 04/23/21 11:13 Pulse Ox 99 04/23/21 11:13 04/22/21 04/23/21 04/23/21 22:59 06:59 14:59 Intake Total 50 / 1550 600 / 1550 Balance 50 / 1550 600 / 1550 Physical Exam Narrative: EXAM NARRATIVE: HEENT: Normocephalic Eye: Sclera /conjunctiva normal Abdomen: Soft to palpation Neurological: Oriented to place person and time Skin: Intact, no lesions appreciated on gross exam Data : 04/23/21 02:46 04/23/21 02:46 A&P Assessment and plan (1) 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 She needs a central venous access for chemotherapy. 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
[2021-04-23] MEDS: sodium chloride 0.9% 1,000 ML 30 ML IV (12:15)
--- NOTE | 2021-04-23 12:23 | ANES.PREANE2 ---
Pre-Anesthetic Assessment Pre-Anesthetic Assessment: Height/Weight: Height 1.55 m Weight 70.307 kg Temp Pulse Resp BP Pulse Ox 98.6 F 75 20 H 137/72 94 04/23/21 11:13 04/23/21 11:13 04/23/21 11:55 04/23/21 11:13 04/23/21 11:55 Preop Diagnosis: Suspected Lung Cancer Proposed Procedure: Operation Date: 04/23/21 08:10 Proposed Procedures p Portacath Placement(Not Applicable) - Davy Medina MD Was Beta Carmen taken within 24 hours: Yes Was Clonidine taken within 24 hours: N/A Social: Social History: Tobacco (quit 2016) Exam: Pre-Anes Outpt Exam: alert, oriented x 3, clear to auscultation bilaterally and regular rate & rhythm Airway: Submandibular: WNL Cervical ROM: WNL MP: 2 Dentition: False History/ROS: No significant history except as noted Pulmonary: Pulmonary: COPD, AGUILAR and SOB CV/HEM: CV/HEM: HTN : : None reported Hepatic: Hepatic: None reported GI: GI: GERD Metabolic: Metabolic: None reported Musc/skel: Musc/skel: None reported Neuropsych: Neuropsych: None reported Anesthetic Plan: ASA status: 3 Anesthesia: MAC Risk of > 500 ml blood loss (7ml/kg in children): No Meds/Allergies Current Medications: Current Medications Generic Name Dose Route Start Last Admin Trade Name Freq PRN Reason Stop Dose Admin Hydrocodone Bitart /Acetaminophen 1 tab 04/21/21 16:56 04/23/21 10:12 Hydrocodone-Acet aminophen 5-325 Mg Tablet PO 1 tab Q4H PRN Administration MODERATE PAIN Albuterol/Ipratrop ium 3 ml 04/21/21 12:00 04/23/21 07:40 Ipratropium-Albu terol 3 Ml Neb INHALATION 3 ml Q4H.RESPIRATORY S CH Administration Atenolol 50 mg 04/21/21 20:00 04/22/21 21:31 Atenolol 50 Mg T ablet PO 50 mg DAILY@20 MARIANO Administration Atorvastatin Calci um 40 mg 04/21/21 21:00 04/22/21 21:32 Atorvastatin 40 Mg Tablet PO 40 mg BEDTIME MARIANO Administration Clopidogrel Bisulf ate 75 mg 04/21/21 20:00 04/22/21 21:32 Clopidogrel 75 M g Tablet PO 75 mg DAILY@20 MARIANO Administration Enoxaparin Sodium 40 mg 04/21/21 02:23 04/23/21 04:47 Enoxaparin 40 Mg /0.4 Ml Syringe SUBCUT 40 mg Q24H MARIANO Administration Fentanyl 50 mcg 04/23/21 11:12 04/23/21 11:55 Fentanyl 50 Mcg/ Ml Inj 2ml IVP 50 mcg Q10M PRN Administration Preop Pain Piperacillin Sod/T azobactam 50 mls @ 12.5 mls /hr 04/21/21 05:00 04/23/21 06:24 Sod 3.375 gm/ So dium Chloride IV 12.5 mls/hr Q8H MARIANO Administration Protocol Lisinopril 10 mg 04/21/21 20:00 04/22/21 21:32 Lisinopril 10 Mg Tablet PO 10 mg DAILY@20 MARIANO Administration Methimazole 10 mg 04/21/21 20:00 04/22/21 21:32 Methimazole 5 Mg Tablet PO 10 mg DAILY@20 MARIANO Administration Methylprednisolone Sodium Succinate 40 mg 04/21/21 12:00 04/23/21 05:12 Methylprednisolo ne Sod Succ 40 Mg/ Ml Inj IVP 40 mg Q8H MARIANO Administration Pantoprazole Sodiu m 40 mg 04/21/21 09:00 04/23/21 07:[address] 40 Mg Tablet PO 40 mg BID MARIANO Administration Polyethylene Glyco l 17 gm 04/21/21 08:00 04/22/21 07:48 Polyethylene Gly col 3350 Pkt 17 Gm PO 17 gm DAILY@08 MARIANO Administration Senna/Docusate Sod ium 1 tab 04/21/21 09:00 04/23/21 07:55 Sennosides-Docus ate Tablet PO 1 tab DAILY MARIANO Administration Sucralfate 1 gm 04/21/21 09:00 04/23/21 07:55 Sucralfate 1 Gm Tablet PO 1 gm TID MARIANO Administration PFSH Anesthesia PFSH: Medical History Anxiety disorder Basilar artery aneurysm Constipation Dyslipidemia Gastritis Hemorrhoid Hypertension Continue on atenolol, hold lisinopril until seen by primary care provider Hyperthyroidism Continue on home methimazole Insomnia Migraine Plantar fasciitis Statin intolerance Surgical History H/O section H/O splenectomy 2008 History of esophagogastroduodenoscopy (EGD) 2019 -gastritis S/P coil embolization of cerebral aneurysm 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, stent subsequently removed Status post colonoscopy 2018: Normal repeat in 10 years Family History Mother Diabetes Father Heart disease Denies family history of Anesthesia complication Bleeding disorder Social History Smoking and tobacco status: former smoker Quit status (tobacco): has quit using tobacco Year quit tobacco: 2016 [id number] Second hand smoke exposure: No Smoking risk assessment/counseling performed?: Yes Alcohol intake: current Alcohol intake frequency: holidays/special occasions only Lives independently: Yes Household members: spouse Marital status: service: No Current occupational status: retired Pets and animals: Yes History of recent travel: No Current gender identity: Female Data Anesthesia CBC & Chem 7: 04/23/21 02:46 04/23/21 02:46 Other Labs: Laboratory Results - last 48 hr 04/21/21 04/21/21 04/21/21 10:12 12:00 16:30 WBC RBC Hgb Hct MCV MCH MCHC RDW Plt Count MPV Neut % (Auto) Lymph % (Auto) [place] % (Auto) Eos % (Auto) Baso % (Auto) Neut # (Auto) Lymph # (Auto) [place] # (Auto) Eos # (Auto) Baso # (Auto) Nucleated RBC % (auto) Nucleated RBCs # Sodium Potassium Chloride Carbon Dioxide Anion Gap BUN Creatinine GFR Calculation Glucose Calculated Osmolality Calcium Phosphorus Magnesium Total Bilirubin AST ALT Alkaline Phosphatase Troponin T 120 Minute 6.00 Delta Troponin T 0 Troponin T Hi Sens 6Hr 6.00 Troponin T Hi Sens 6Hr Delta 0 C-Reactive Protein NT-Pro-B Natriuret Pep Total Protein Albumin Globulin Procalcitonin TSH 3.60 Vancomycin Trough 04/22/21 04/22/21 04/22/21 02:53 02:53 02:53 WBC 18.5 H RBC 4.05 L Hgb 10.8 L Hct 35.6 L MCV 87.9 MCH 26.7 L MCHC 30.3 RDW 17.2 H Plt Count 576 H MPV 9.5 Neut % (Auto) 82.8 Lymph % (Auto) 13.0 [place] % (Auto) 3.3 Eos % (Auto) 0.1 Baso % (Auto) 0.2 Neut # (Auto) 15.33 H Lymph # (Auto) 2.4 [place] # (Auto) 0.6 Eos # (Auto) 0.0 Baso # (Auto) 0.0 Nucleated RBC % (auto) 0 Nucleated RBCs # 0.0 Sodium 139 Potassium 3.5 Chloride 101 Carbon Dioxide 24 Anion Gap 17.5 BUN 14 Creatinine 0.9 GFR Calculation 62.1 L Glucose 198 H Calculated Osmolality 294 Calcium 9.1 Phosphorus 1.8 L Magnesium 2.2 Total Bilirubin 0.3 AST 13 ALT 7 Alkaline Phosphatase 83 Troponin T 120 Minute Delta Troponin T Troponin T Hi Sens 6Hr Troponin T Hi Sens 6Hr Delta C-Reactive Protein 215.0 H NT-Pro-B Natriuret Pep 235 H Total Protein 7.3 Albumin 3.4 L Globulin 3.9 Procalcitonin 0.18 TSH Vancomycin Trough 04/23/21 04/23/21 04/23/21 02:46 02:46 02:46 WBC 26.0 H RBC 3.62 L Hgb 9.7 L Hct 30.9 L MCV 85.4 MCH 26.8 L MCHC 31.4 RDW 17.2 H Plt Count 545 H MPV 9.1 Neut % (Auto) 83.7 Lymph % (Auto) 9.8 [place] % (Auto) 5.3 Eos % (Auto) 0.0 Baso % (Auto) 0.2 Neut # (Auto) 21.78 H Lymph # (Auto) 2.5 [place] # (Auto) 1.4 H Eos # (Auto) 0.0 Baso # (Auto) 0.1 Nucleated RBC % (auto) 0 Nucleated RBCs # 0.0 Sodium 143 Potassium 4.3 Chloride 107 Carbon Dioxide 26 Anion Gap 14.3 BUN 25 H Creatinine 1.4 H GFR Calculation 37.3 L Glucose 157 H Calculated Osmolality 304 H Calcium 8.8 Phosphorus 2.9 D Magnesium 2.1 Total Bilirubin 0.2 AST 20 ALT 13 Alkaline Phosphatase 66 Troponin T 120 Minute Delta Troponin T Troponin T Hi Sens 6Hr Troponin T Hi Sens 6Hr Delta C-Reactive Protein 82.2 H NT-Pro-B Natriuret Pep Total Protein 6.4 L Albumin 3.0 L Globulin 3.4 Procalcitonin TSH Vancomycin Trough 9.2 L 04/23/21 02:46 WBC RBC Hgb Hct MCV MCH MCHC RDW Plt Count MPV Neut % (Auto) Lymph % (Auto) [place] % (Auto) Eos % (Auto) Baso % (Auto) Neut # (Auto) Lymph # (Auto) [place] # (Auto) Eos # (Auto) Baso # (Auto) Nucleated RBC % (auto) Nucleated RBCs # Sodium Potassium Chloride Carbon Dioxide Anion Gap BUN Creatinine GFR Calculation Glucose Calculated Osmolality Calcium Phosphorus Magnesium Total Bilirubin AST ALT Alkaline Phosphatase Troponin T 120 Minute Delta Troponin T Troponin T Hi Sens 6Hr Troponin T Hi Sens 6Hr Delta C-Reactive Protein NT-Pro-B Natriuret Pep 383 H Total Protein Albumin Globulin Procalcitonin 0.12 TSH Vancomycin Trough Cardiac Studies: No Data to Display
[2021-04-23] MEDS: lidocaine 1% INJ 20 mL INJECTION (12:40)
[2021-04-23] MEDS: heparin, porcine 1,000 unit/mL INJ 10 mL 6000 UNIT INJECTION (12:55)
--- NOTE | 2021-04-23 13:10 | PM.OP ---
Operative Report Date of procedure: April 23, 2021 Pre-op Diagnosis: Left lung cancer Post-op diagnosis: same Procedure Done: Placement of PowerPort in the right subclavian vein Fluoroscopic guidance and interpretation for placement of catheter Pathology: none sent Surgeon: Davy Medina Anesthesia: MAC Condition: stable Disposition: PACU Procedure: The patient was taken to the Operating Room and the chest and neck bilaterally were prepped and draped in a sterile manner after the antibiotic had been administered and shoulder rolls had been placed. A total of 10 mL of 1% lidocaine with 0.5% Marcaine was infiltrated under the clavicle on the right side at the site of the planned entry into the subclavian vein. An introducer needle was then used to access the subclavian vein under the clavicle and after withdrawing blood syringe was removed and a guidewire passed under fluoroscopy into the superior vena cava. The site of the planned port was then marked on the chest and a 15 blade was used to make a 3 cm skin incision this was extended into the subcutaneous tissue using electrocautery and a subcutaneous pocket over the pectoralis fascia was created 2-0 Vicryl suture was used to suture the port to the pectoral fascia in the pocket on 3 sides. The catheter, after having been flushed with hep saline, was attached to the tunneler and a tunnel created between the port site and the subclavian vein entry site. Under fluoroscopy the dilator sheath was passed over the guidewire into the proximal superior vena cava. The inner dilator was removed and the sheath left behind and~ the catheter was introduced through the peel-away sheath with the tip in the superior vena cava. The peel-away sheath was removed. The proximal end of the catheter was cut to the right size and was attached to the port. Using a Ivan needle the port was accessed, it withdrew blood easily and flushed easily. A final 5cc of heparin was used to flush the PowerPort. The subcutaneous tissue was approximated using interrupted 3-0 Vicryl sutures and the skin at the introducer site and the port site was closed using subcuticular running 4-0 Monocryl sutures. Surgical glue was applied and the patient was stable throughout the procedure. Fluoroscopic guidance and interpretation was performed for introduction of the guidewire in the right subclavian vein, passage of dilator and placement of catheter tip in the distal superior vena cava.
[2021-04-23] MEDS: fentaNYL 50 mcg/mL INJ 2mL 100 MCG IVP (13:37)
[2021-04-23] MEDS: morphine 4 mg/mL SDV 1 mL 1 MG IVP (15:16)
--- NOTE | 2021-04-23 16:25 | ANE.PACU2 ---
Inpatient post-anesthesia follow up: Airway intact: Yes Vital signs: Temperature 97.7 F Pulse Rate [Monito r] 100 Pulse Rate 66 Respiratory Rate 18 Blood Pressure [Le ft Arm] 134/84 Blood Pressure 131/75 Pulse Oximetry 94 Oxygen Delivery Me thod Room Air Oxygen Flow Rate 8 Fraction of Inspir ed Oxygen Hydration adequate: Yes Nausea and vomiting: No Pain level: 1 Mental status: Baseline
[2021-04-23] MEDS: HYDROmorphone 1 mg/mL INJ 1 mL 0.5 MG IVP (16:58)
--- NOTE | 2021-04-23 17:32 | PM.PN ---
Subjective Subjective: Interval history: Patient was seen this morning, after port placement, she still having some pain at the insertion site, but overall she is doing better, she tells me that she just wants to stay here in the hospital for another day, she just not feeling well, Vitals/I&O/Wt Last Vital Signs Temp 97.7 F 04/23/21 13:25 Pulse 70 04/23/21 16:35 Resp 22 H 04/23/21 16:58 BP 131/75 04/23/21 13:25 Pulse Ox 96 04/23/21 16:32 04/23/21 04/23/21 04/23/21 06:59 14:59 22:59 Intake Total 600 / 1550 100 / 100 Output Total 4 / 4 Balance 600 / 1550 96 / 96 Physical Exam Const: COMMON NORMALS: no acute distress and patient oriented x3 Chest: OTHER: Right chest port in place Resp: COMMON NORMALS: normal respiratory effort, No retractions, No use of accessory muscles and clear to auscultation bilaterally AUSCULTATION: clear to auscultation bilaterally Cardio: COMMON NORMALS: regular rate, regular rhythm, S1 normal heart sound present and S2 normal heart sound present RATE: regular rate RHYTHM: regular rhythm HEART SOUNDS: S1 normal heart sound present and S2 normal heart sound present GI: COMMON NORMALS: Normal to inspection, nondistended, normoactive bowel sounds present, Soft to palpation, non-tender, No hepatosplenomegaly present, no masses and no bruits PALPATION: Yes Soft to palpation and Yes No hepatosplenomegaly present Extremity: COMMON NORMALS: no pedal edema Neuro: COMMON NORMALS: patient oriented x3 Psych: COMMON NORMALS: mental status grossly normal Data : 04/23/21 02:46 04/23/21 02:46 A&P Assessment and plan (1) Non-small cell cancer of left lung: Status: Acute (2) Left upper lobe pulmonary nodule: Status: Acute (3) COPD (chronic obstructive pulmonary disease): Status: Acute Qualifiers: COPD type: emphysema Emphysema type: centrilobular Qualified Code(s): J43.2 - Centrilobular emphysema (4) Postobstructive pneumonia: Status: Acute (5) Sepsis: Status: Acute Additional A&P Information Sepsis secondary to postobstructive pneumonia Criteria met with tachypnea, fever, WBC 20.4, lactic acid normal, l she received 1 L normal saline and ceftriaxone azithromycin in the emergency room Considering history of postobstructive pneumonia and recurrent infections, stop vancomycin continue Zosyn Decrease prednisone to 40 mg daily Follow blood cultures, sputum cultures urine bacterial antigens Currently on 2 L, clinically feeling better CT angiogram no evidence of pulmonary emboli CT chest mild interval worsening of the atelectasis and/or pneumonia of the left upper lobe, left upper lobe bronchus is occluded She has had a bronchoscopy/EBUS by Dr. Mercado in the past Consult Dr. Mercado Patient had VQ scan, for consideration of pneumonectomy, her case was discussed with Dr. Matos in tumor board, after discussion with VQ scan results with patient and Dr. Watts, patient will pursue chemotherapy, Status post Port-A-Cath placement, pain control Non-small cell cancer of left lung PET scan is showing atelectasis and mild increased activity at the rim of atelectasis on the left side vascular patient is complaining about pleuritic chest pain as well For pleuritic chest pain she received morphine 4 mg in the ER, monitor for signs of sedation and respiratory depression likely secondary to postobstructive pneumonia on the left -Troponins, no significant delta troponin, BNP 128 -EKG sinus rhythm, -cardiac echo pending Hoarseness of voice: History of hypothyroidism, Check TSH, continue methimazole for now No evidence of meta stasis of cancer in oropharynx Full code DVT prophylaxis Lovenox Cardiac diet Attestations Medical Necessity Statement*: Patient requires hospitalization for postobstructive pneumonia, Coding Level of Care Code 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
[2021-04-23] MEDS: atenolol 50 mg Tablet PO (21:25)
[2021-04-23] MEDS: clopidogrel 75 mg Tablet PO (21:25)
[2021-04-23] MEDS: methIMAzole 5 MG Tablet 10 MG PO (21:26)
[2021-04-23] MEDS: atorvastatin 40 mg Tablet PO (21:26)
[2021-04-23] MEDS: lisinopril 10 mg Tablet PO (21:26)
[2021-04-24] VITALS (14 sets, daily range): BP systolic 125–155; BP diastolic 71–98; PULSE 56–76; RESP 16–20; TEMP 36.3–36.9; O2SAT 86–96
[2021-04-24] MEDS: ipratropium-albuterol 3 mL Neb INHALATION ×3 (00:10→11:27)
[2021-04-24] MEDS: enoxaparin 40 mg/0.4 mL Syringe SUBCUT (03:38)
[2021-04-24] MEDS: morphine 4 mg/mL SDV 1 mL IVP (03:52)
[2021-04-24] MEDS: ondansetron 2 mg/ML SDV 2 mL 4 MG IVP (03:54)
[2021-04-24] MEDS: piperacillin-tazobactam 3.375 GM in sodium chloride 0.9% (plus) 50 ML IV (05:21)
[2021-04-24 05:49] LABS: Basophils % 0.2 %; Eosinophils % 0.1 %; Hematocrit 31.8 % (37.0-47.0); Hemoglobin 9.7 g/dL (11.5-15.3); Lymphocytes # 5.7 10^3/uL (0.8-4.8); Lymphocytes % 30.2 %; Mean Corpuscular HGB Conc 30.5 g/dL (30.0-36.0); Mean Corpuscular Hemoglobin 26.5 pg (28.0-34.0); Mean Corpuscular Volume 86.9 fL (81-99); Mean Platelet Volume 9.5 fL (7.4-10.4); Monocytes # 1.7 10^3/uL (0.2-0.9); Monocytes % 9.1 %; Neutrophils # 11.22 10^3/uL (1.8-7.7); Neutrophils % 59.7 %; Nucleated Red Blood Cells % 0 %; Platelet Count 563 10^3/cmm (130-400); Red Blood Count 3.66 10^6/uL (4.1-5.3); Red Cell Distribution Width 17.8 % (12.1-15.1); White Blood Count 18.8 10^3/uL (4.0-10.0)
[2021-04-24 06:21] LABS: NT Pro B Type Natriuretic Pept 953 pg/mL (0-125); Procalcitonin 0.08 ng/mL (0-0.5)
[2021-04-24 06:34] LABS: Alanine Aminotransferase 12 U/L (0-33); Albumin Level 2.9 g/dL (3.5-5.2); Alkaline Phosphatase 63 IU/L (35-105); Anion Gap 12.9 (5-19); Aspartate Amino Transferase 17 U/L (0-32); Blood Urea Nitrogen 24 mg/dL (8-23); C Reactive Protein 35.5 mg/L (0.0-4.9); Calcium 8.2 mg/dL (8.5-10.5); Carbon Dioxide 24 mmol/L (22-29); Chloride 106 mmol/L (98-107); Globulin 3.1 g/dL (1.3-4.6); Glomerular Filtration Rate 62.1 mL/min (90-130); Glucose 92 mg/dL (65-115); Magnesium 1.9 mg/dL (1.7-2.3); Osmolality Calculated 292 mOsm/kg (285-295); Phosphorus 2.6 mg/dL (2.5-4.5); Potassium 3.9 mmol/L (3.5-5.1); Sodium 139 mmol/L (136-145); Total Bilirubin 0.2 mg/dL (0.15-1.2)
[2021-04-24] MEDS: predniSONE 20 mg Tablet 40 MG PO (08:42)
[2021-04-24] MEDS: sennosides-docusate Tablet 1 TAB PO (08:42)
[2021-04-24] MEDS: pantoprazole DR 40 mg Tablet PO (08:43)
[2021-04-24] MEDS: sucralfate 1 gm Tablet PO (08:43)
[2021-04-24] MEDS: polyethylene glycol 3350 Pkt 17 gm PO (08:43)
[2021-04-24] MEDS: cyclobenzaprine 10 mg Tablet PO (08:50)
--- NOTE | 2021-04-24 11:40 | PM.PN ---
Subjective Subjective: Interval history: Patient had significant pain yesterday after Port-A-Cath placement but today feels better Vitals/I&O/Wt Last Vital Signs Temp 97.4 F L 04/24/21 08:00 Pulse 74 04/24/21 11:35 Resp 18 04/24/21 11:27 BP 140/85 04/24/21 08:00 Pulse Ox 93 04/24/21 11:27 04/23/21 04/24/21 04/24/21 22:59 06:59 14:59 Intake Total 300 / 1140 740 / 1140 410 / 410 Output Total 600 / 604 300 / 300 Balance 300 / 536 140 / 536 110 / 110 Physical Exam Narrative: EXAM NARRATIVE: Right chest: Port-A-Cath in place, incision clean dry and intact, no cellulitis or hematoma Data : 04/24/21 04:56 04/24/21 04:56 A&P Assessment and plan (1) Port-A-Cath in place: Status post insertion of right subclavian Port-A-Cath for chemotherapy, no postop complications Overall doing well Discharge per primary Status: Acute Attestations Medical Necessity Statement*: Postop Coding Level of Care Code Acute 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
--- NOTE | 2021-04-24 13:05 | PM.DCS ---
Discharge Providers Date of Admission: 04/21/21 02:01 Date of Discharge: April 24, 2021 Attending Provider at Admission: Marylou De La Rosa MD Attending Provider at Discharge: Marco Celestin MD Primary Care Provider: Maria Gomez APN Diagnoses at Discharge Discharge Diagnosis (1) Port-A-Cath in place: Status: Acute Permanent problem details: Right subclavian Reason for Visit Reason for Visit: pneumonia complications Hospital Course Hospital Course This is a 71-year-old female with past medical history of smoking, hypothyroidism, COPD, recently diagnosed with a suprahilar soft tissue mass with obstruction of left distal mainstem bronchus of the left upper lobe, status post bronchoscopy, showed non-small cell lung cancer stage Ib, who presents [facility] due to fevers, shortness of breath Patient was admitted to [facility] for acute hypoxic respiratory failure secondary to postobstructive pneumonia, received broad-spectrum antibiotic therapy, inhaled therapies, steroids, oxygen therapy, pulmonary was consulted. Patient clinically improved, will be discharged on Levaquin for 5 days, prednisone burst, oxygen therapy, trilogy inhaler with close follow-up with pulmonary as outpatient For patient's lung cancer, she had a VQ scan to assess for possible pneumonectomy, after discussion with Dr. Matos and Dr. Santos and Dr. Pantoja and the patient, patient was determined not to be a suitable candidate, had a port placed by Dr. Medina for chemotherapy. She will follow with Dr. Pantoja next week. Physical Exam Const: COMMON NORMALS: no acute distress and patient oriented x3 HENMT: COMMON NORMALS: normocephalic HEAD & SCALP: normocephalic Resp: COMMON NORMALS: normal respiratory effort, No retractions, No use of accessory muscles and clear to auscultation bilaterally AUSCULTATION: clear to auscultation bilaterally Cardio: COMMON NORMALS: regular rate, regular rhythm, S1 normal heart sound present and S2 normal heart sound present RATE: regular rate RHYTHM: regular rhythm HEART SOUNDS: S1 normal heart sound present and S2 normal heart sound present GI: COMMON NORMALS: Normal to inspection, nondistended, normoactive bowel sounds present, Soft to palpation, non-tender, No hepatosplenomegaly present, no masses and no bruits PALPATION: Yes Soft to palpation and Yes No hepatosplenomegaly present Extremity: COMMON NORMALS: no pedal edema Neuro: COMMON NORMALS: patient oriented x3 Psych: COMMON NORMALS: mental status grossly normal Discharge Data Data Completed and Pending: Completed Studies During Hospitalization Category Date Time Status CT angio chest PE protcl [id number] Urge nt Cat Scan 04/20/21 19:13 Completed XR chest 1V donald ble [id number] Routine Exams 04/22/21 07:00 Completed XR chest 1V donald ble [id number] Stat Exams 04/20/21 18:41 Completed NM pul perfusion [id number] Stat Nuc Med 04/22/21 10:23 Completed Pending at discharge Category Date Time Status Aspergillus AG,EI A,Serum Routine Lab 04/21/21 03:37 Received Blood Culture Sta t Lab 04/20/21 21:02 Results Sputum Culture Ro utine Lab 04/22/21 18:16 Uncollected Sputum Culture an d Gram Stain Routi ne Lab 04/22/21 08:06 Ordered CV echo complete* [id number] Routine Ultrasound 04/21/21 09:21 Taken Labs from last 24 hours 04/24/21 04/24/21 04:56 04:56 WBC 18.8 H RBC 3.66 L Hgb 9.7 L Hct 31.8 L MCV 86.9 MCH 26.5 L MCHC 30.5 RDW 17.8 H Plt Count 563 H MPV 9.5 Neut % (Auto) 59.7 Lymph % (Auto) 30.2 Morrow % (Auto) 9.1 Eos % (Auto) 0.1 Baso % (Auto) 0.2 Neut # (Auto) 11.22 H Lymph # (Auto) 5.7 H Morrow # (Auto) 1.7 H Eos # (Auto) 0.0 Baso # (Auto) 0.0 Nucleated RBC % (a uto) 0 Nucleated RBCs # 0.0 Sodium 139 Potassium 3.9 Chloride 106 Carbon Dioxide 24 Anion Gap 12.9 BUN 24 H Creatinine 0.9 GFR Calculation 62.1 L Glucose 92 Calculated Osmolal ity 292 Calcium 8.2 L Phosphorus 2.6 Magnesium 1.9 Total Bilirubin 0.2 AST 17 ALT 12 Alkaline Phosphata se 63 C-Reactive Protein 35.5 H NT-Pro-B Natriuret Pep 953 H Total Protein 6.0 L Albumin 2.9 L Globulin 3.1 Procalcitonin 0.08 Vitals: Last Vital Signs Temp 98.4 F 06/05/21 12:00 Pulse 73 04/24/21 12:00 Resp 18 04/24/21 12:00 BP 140/82 04/24/21 12:00 Pulse Ox 95 04/24/21 12:00 Discharge Plan Discharge Patient Disposition: Home Condition: Stable Prescriptions: New hydrocodone-acetaminophen 5-325 mg Tablet 1 tab PO Q6H PRN (Reason: Moderate Pain) 7 Days Qty: 28 RF: 0 prednisone 20 mg Tablet 40 mg PO DAILY 5 Days Qty: 10 RF: 0 atorvastatin 40 mg Tablet 40 mg PO BEDTIME 30 Days Qty: 30 RF: 0 benzonatate 100 mg Capsule 100 mg PO BID PRN (Reason: Cough) 15 Days Qty: 30 RF: 0 Trelegy Ellipta 100-62.5-25 mcg blister with device 1 inh inhalation DAILY 30 Days Qty: 60 RF: 0 levofloxacin 750 mg tablet 750 mg PO DAILY 5 Days Qty: 5 RF: 0 Continued cyclobenzaprine 10 mg tablet 10 mg PO PRN RF: 0 lisinopril 10 mg tablet 10 mg PO DAILY@20 RF: 0 Hold Instructions: Resume on 01/06/20. Follow-up with primary care provider to discuss need to continue this medication methimazole 10 mg tablet 10 mg PO DAILY@20 RF: 0 polyethylene glycol 3350 [Miralax] 17 gram powder in packet 17 gm PO DAILY@08 RF: 0 sumatriptan succinate 100 mg tablet 100 mg PO BID PRN (Reason: Migraine Headache) RF: 0 albuterol sulfate [ProAir HFA] 90 mcg/actuation Hfa Aerosol Inhaler 2 puff INHALATION Q4H PRN (Reason: Shortness Of Breath) RF: 0 mv,Ca,ir,Ao-SU-bop-gel-patty-PAB 3-133 mg-mcg Capsule 2 cap PO DAILY RF: 0 Benefiber Healthy Shape 5 gram/7.4 gram Powder See Rx Instructions .ROUTE .COMPLEX RF: 0 Probiotic 2 tab PO QAM RF: 0 clopidogrel 75 mg tablet 75 mg PO DAILY@20 RF: 0 Hold Instructions: Doctor's Order pantoprazole [Protonix] 40 mg tablet,delayed release (DR/EC) 40 mg PO BID RF: 0 atenolol 50 mg tablet 50 mg PO DAILY@20 RF: 0 Calcium Soft Chew 500 mg-1,000 unit-40 mcg Tablet,Chewable 1 tab PO DAILY RF: 0 Carafate 1 gram tablet 1 gm PO TID RF: 0 dicyclomine 20 mg tablet 20 mg PO QID PRN (Reason: Abdominal Discomfort) RF: 0 Discontinued Unknown Inhaler Name See Rx Instructions .ROUTE .COMPLEX RF: 0 Discharge Orders: Discharge Order (Routine); Ordered 04/24/21 Ordered By: Marco Celestin Other Ambulatory Orders: DME: Oxygen (Order) Location: None Selected Ordered By: Marco Celestin Referrals: Alfredo Mercado MD [Physician] - 1 week ([facility] will call you Monday to set up an appointment.) Davy Medina MD [Physician] - ([facility] will call you Monday to set up an appointment.) Brett Pantoja MD [Hospitalist] - 1 week ([facility] will call Monday to set up this appointment.) Patient Instructions: Opioid Safety Activity Restrictions/Additional Instructions: Diet Advance to normal diet as tolerated, increase fluid intake as much as possible. Activity Avoid strenuous activity for 1 week but continue with daily activities including walking as tolerated. Do not lift more than 10 pounds for 1 week Return to work/school You can return to work/ school whenever you feel ready as long as you don?t have to lift more than 10 pounds at work. If you have paperwork that needs to be completed for time off from work, please contact my office Driving You can resume driving once you stop using narcotic pain medications, and transition to non-opioid pain medications like Tylenol, Motrin, Aleve, etc. Medications Pain Take opioid pain medications as prescribed and transition to non-opioid pain medications like Tylenol, Motrin, Aleve etc. over the next few days. The goal of the pain medications is to make the pain bearable and not to be pain free since you recently had surgery. Resume all home medications after surgery as per the medication reconciliation list Shower It is ok to shower but avoid getting the wound wet for 48 hours after surgery. Do not soak in bathtub, swimming pool or hot tub for 2 weeks. Wound care The glue applied to the incision will peel slowly over the next two weeks. The stitches used are dissolvable and will not need to be removed. Do not apply antibiotics or other medications on the incision Problems with the wound You can develop some redness around the incision from bruising after surgery. If there is increasing pain, redness, tenderness around the incision with or without drainage, please contact my office to rule out an infection. Sometimes the skin at the incisions can separate, resulting in reopening of the wound. Cover the wound with antibiotic cream and sterile dressings and contact my office. Contact physician Call the office at [phone] during office hours or go the Emergency Room after hours for - ?Fever to 100.4 or greater ?Shaking chills ?Pain that increases over time ?Redness, warmth, or pus draining from incision sites ?Persistent nausea or inability to take in liquids -take antibiotics as prescribed -take steroids as prescribed -follow up with dr. pantoja in 1 week -2L o2 Discharge Attestations Time Spent in Discharge Care*: greater than 30 min Quality Metrics Clinical Quality Measures During this hospital stay, did patient experience: None Coding Level of Care Code Acute Chg FW LA note Diagnoses Port-A-Cath in place Z95.828
--- NOTE | 2021-04-24 13:23 | PC.SOCIAL ---
Pg 2 IMM Explained to pt Pg 2 IMM. No questions voiced. Provided pt a copy. Signed, dated, & timed a copy & placed in chart.
[2021-04-29 18:33] LABS: Aspergillus AG,EIA,Serum NOT DETECTED; Aspergillus Galactomannan Inde <0.50
== END 2021-04-24 17:37 | disposition home health service (06) | DRG 871 ==
LOC: ER 22:46 → CSU 04-21 02:01 → MEDSURG 04-22 02:44
PROVIDERS: Family Medicine; Surgery; Admitting Provider Internal Medicine; Emergency Provider Emergency Medicine; PCP Nurse Practitioner Family; Visit Provider Family Medicine
PROC: 02HV33Z Insertion of Infusion Device into Superior Vena Cava, Percutaneous Approach (ICD-10-PCS; principal; 2021-04-23 08:00)
DX: A41.9 Sepsis, unspecified organism (principal); J18.9 Pneumonia, unspecified organism; J96.01 Acute respiratory failure with hypoxia; C34.12 Malignant neoplasm of upper lobe, left bronchus or lung; J98.11 Atelectasis; Z87.891 Personal history of nicotine dependence; E03.9 Hypothyroidism, unspecified; Z87.01 Personal history of pneumonia (recurrent); F41.9 Anxiety disorder, unspecified; E78.5 Hyperlipidemia, unspecified; I10 Essential (primary) hypertension; Z95.820 Peripheral vascular angioplasty status with implants and grafts; G47.00 Insomnia, unspecified; J43.2 Centrilobular emphysema; R07.81 Pleurodynia; Z90.81 Acquired absence of spleen; Z79.51 Long term (current) use of inhaled steroids; Z79.02 Long term (current) use of antithrombotics/antiplatelets
CPT/HCPCS: 36415; 36600; 71045; 71275; 77001; 78580; 80048; 80051; 80053; 80202; 81001; 82330; 82805; 83605; 83735; 83880; 84100; 84145; 84443; 84484; 85025; 86140; 86403; 87040; 87305; 87449; 93005; 93306; 94640; 96365; 96367; 96372; 96374; 97161; 97165; 97530; 99285; A9540; C1788; J0456; J0690; J0696; J1170; J1644; J1650; J2250; J2270; J2405; J2543; J2704; J2920; J3010; J3370; J3490; J7030; J7050; J7512; Q9967

== ENCOUNTER 2021-05-19 09:59 | Outpatient (CLI) | payer MEDICARE, SELFPAY ==
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
== END 2021-05-19 10:00 | disposition home or self-care (01) ==
LOC: ONCMED 10:01
PROVIDERS: PCP Nurse Practitioner Family; Visit Provider Internal Medicine Medical Oncology
DX: C34.12 Malignant neoplasm of upper lobe, left bronchus or lung (principal); J98.11 Atelectasis; J44.9 Chronic obstructive pulmonary disease, unspecified; I10 Essential (primary) hypertension; E05.90 Thyrotoxicosis, unspecified without thyrotoxic crisis or storm; E78.5 Hyperlipidemia, unspecified; K29.70 Gastritis, unspecified, without bleeding; Z79.899 Other long term (current) drug therapy
CPT/HCPCS: 99215

== ENCOUNTER 2021-05-20 07:12 | Outpatient (CLI) | payer MEDICARE, SELFPAY ==
--- NOTE | 2021-05-20 13:44 | N.ONRAD NP_ITS ---
Radiation Oncology Consultation Patient Name: May Cummings Date of : 1950 Date of Service: 05/20/2021 Attending Physician: Fernando Murphy M.D. Vivian Cummings was seen in consultation this afternoon at the request of Brett Watts M.D. for consideration of thoracic radiotherapy in the management of a recently diagnosed non-small cell lung cancer. She was initially evaluated at the [facility] emergency department in February for dyspnea and productive cough. A chest radiograph demonstrated enlargement of the left hilum. A CT angiogram identified pulmonary emphysema with consolidation of the left upper lobe of the lung and mediastinal lymphadenopathy. A bronchoscopy with endobronchial ultrasound-guided transbronchial needle aspiration performed on March 26, 2021 revealed a left mainstem bronchus endobronchial lesion occluding the entrance to the left upper lobe bronchus. 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 The biopsies from lymph node stations 7 and 10 were negative for malignancy. PET CT ordered on March 30, 2021 confirmed hypermetabolic activity in the left hilum (SUV 13.5), atelectasis/consolidation of the medial left upper lobe (SUV 5.5), and peribronchial thickening in the left apex (SUV 6.8). There was no evidence of distant metastatic disease. Pulmonary function testing exhibited an FVC of 2.51 L (97% of predicted), FEV1 of 1.33 L (66% of predicted), and a DLCO of 11.4 mL/min/mmHg (56% of predicted). A split perfusion study of the lungs completed on April 21, 2021 showed normal symmetric perfusion with no perfusion defects. As a result of this test, she was not considered eligible for surgery. The patient presents for discussion of thoracic radiotherapy. I discussed with Ms. Cummings the AJCC clinical stage IIIA (T4N0) lung cancer corresponding to her disease. I also reviewed the National Comprehensive Cancer Network Guidelines recommending concurrent chemoradiotherapy in the management of locally advanced lung cancer established by the classic study RTOG 9410 comparing sequential versus concurrent chemoradiotherapy that demonstrated an overall survival advantage for the concurrent chemoradiotherapy regimen. I would endorse a six week course of thoracic radiotherapy. A computed tomographic radiotherapy planning scan with contrast in the treatment position will be acquired and co-registered to the patient's staging PET CT scan to identify the gross tumor volume. The potential toxicities of thoracic radiotherapy were reviewed. The patient has verbalized understanding would like to proceed as recommended. Prior to implementing treatment, I will order an MRI of the brain to complete staging. The patient???s treatment plan was discussed with Brett Watts M.D. Signed by: Dr. Fernando Murphy 05/20/2021 1:43:31 PM
== END 2021-05-20 07:13 | disposition home or self-care (01) ==
LOC: ONCMED 07:18
PROVIDERS: PCP Nurse Practitioner Family; Visit Provider Radiology Radiation Oncology
DX: C34.12 Malignant neoplasm of upper lobe, left bronchus or lung (principal); J43.9 Emphysema, unspecified; R59.0 Localized enlarged lymph nodes; Z79.899 Other long term (current) drug therapy
CPT/HCPCS: 99215

== ENCOUNTER → 2021-06-03 14:19 | Outpatient (BNVA) | payer MEDICARE, SELFPAY | PROVIDERS: PCP Nurse Practitioner Family; Referring Provider Nurse Practitioner Family; Visit Provider Specialist | DX: G43.711 Chronic migraine without aura, intractable, with status migrainosus (principal); C34.12 Malignant neoplasm of upper lobe, left bronchus or lung; Z87.891 Personal history of nicotine dependence | CPT/HCPCS: 99204 ==

== ENCOUNTER 2021-06-18 05:52 | Outpatient (RCR) | payer MEDICARE, SELFPAY ==
--- NOTE | 2021-05-26 12:21 | CT_ITS ---
WS: [id number] CT HEAD WITH AND WITHOUT CONTRAST HISTORY: LUNG CANCER TECHNIQUE: Noncontrast 2.5 mm axial images obtained from the vertex to the skull base. Additional addie ging performed at 2.5 mm axial images status post IV contrast. Bone and soft tissue windows are revie wed. All CT scans at [facility] use at least one of these dose optimization techniques: a utomated exposure control; mA and/or kV adjustment per patient size (includes targeted exams where do se is matched to clinical indication); or iterative reconstruction. CONTRAST: Omnipaque 300; 95 mL IV. DLP: 996.05 mGy.cm COMPARISON: 10/19/2019 Significant artifact through the central brain secondary to an aneurysm clip at the basilar tip. No e vidence for an acute hemorrhage taking into consideration some the limitations. Extensive chronic white matter ischemic changes. Very similar to the prior study with no advancement. No enhancing masses. No additional aneurysms are identified but this is not a CT angiogram. Small an eurysms would easily be missed on this examination. Dural venous sinuses are normally enhancing. Artifact from aneurysm coil clips in the basilar tip. The visualized portions of the [place] appear to be intact. No additional aneurysms are appreciated. Paranasal sinuses as visualized: Clear. Mastoid air cells: Clear. Calvarium and scalp: Intact. CT/CT head wo/w con [id number] IMPRESSION: 1. No evidence for acute intracranial hemorrhage or edema. 2. Advanced chronic small vessel ischemic disease. 3. Prior aneurysm coiling of a basilar tip aneurysm causing significant artifa ct through the brain. 4. No enhancing masses.
[2021-05-26] MEDS: iohexol 300 mg/mL 100 mL Btl IV (12:48)
--- NOTE | 2021-05-31 | CT_ITS ---
Radiation Therapy Planning CT images; total exam DLP: 886.94 mGy-cm MTDD
[2021-06-09 12:19] LABS: Basophils % 0.2 %; Hematocrit 36.3 % (37.0-47.0); Hemoglobin 10.9 g/dL (11.5-15.3); Lymphocytes # 3.2 10^3/uL (0.8-4.8); Lymphocytes % 25.8 %; Mean Corpuscular Hemoglobin 25.4 pg (28.0-34.0); Mean Corpuscular Volume 84.6 fL (81-99); Mean Platelet Volume 9.5 fL (7.4-10.4); Monocytes # 0.1 10^3/uL (0.2-0.9); Monocytes % 0.6 %; Neutrophils # 8.99 10^3/uL (1.8-7.7); Neutrophils % 72.9 %; Nucleated Red Blood Cells % 0 %; Platelet Count 561 10^3/cmm (130-400); Red Blood Count 4.29 10^6/uL (4.1-5.3); Red Cell Distribution Width 16.7 % (12.1-15.1); White Blood Count 12.3 10^3/uL (4.0-10.0)
[2021-06-09 12:46] LABS: Alanine Aminotransferase 11 U/L (0-33); Albumin Level 3.8 g/dL (3.5-5.2); Alkaline Phosphatase 88 IU/L (35-105); Aspartate Amino Transferase 15 U/L (0-32); Blood Urea Nitrogen 11 mg/dL (8-23); Calcium 8.5 mg/dL (8.5-10.5); Carbon Dioxide 20 mmol/L (22-29); Chloride 105 mmol/L (98-107); Glomerular Filtration Rate 71.1 mL/min (90-130); Glucose 150 mg/dL (65-115); Osmolality Calculated 286 mOsm/kg (285-295); Sodium 137 mmol/L (136-145); Total Bilirubin 0.2 mg/dL (0.15-1.2); Total Protein 6.8 g/dL (6.6-8.7)
[2021-06-09] MEDS: famotidine 20 mg/2 mL INJ IVP (14:13)
[2021-06-09] MEDS: diphenhydrAMINE 50 mg/mL SDV 1mL 25 MG IV (14:15)
[2021-06-09] MEDS: sodium chloride 0.9% 250 ML 75 ML IV (14:15)
[2021-06-09] MEDS: palonosetron 0.25 mg/5 mL SDV IV (14:17)
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
--- NOTE | 2021-06-14 16:39 | ONCRAD TMN_ITS ---
Radiation Oncology Weekly Treatment Management Patient: May Cummings MR#: [id number] : 1950 Attending Physician: Dr. Juancho Vroa Date of Service: 06/14/2021 Referring Physician(s) : Diagnosis: C34.12 - Malignant neoplasm of upper lobe, left bronchus or lung, Diagnosed 03/31/2021 (Active) Stage IB, T2a, N0, M0 Radiotherapy to date: Course: Lung 2020, Treatment Site: Lung Ca ??? JIMENEZ, Ref. ID: [id number], Energy: 6X, Dose/Fx (cGy): 200, #Fx: , Dose Correction (cGy): 0, Total Dose (cGy): 800, Start Date: 06/09/2021, Elapsed Days: 5 Reason for visit: The patient is being seen today as part of their regularly scheduled weekly on treatment visits to assess for acute toxicities from radiotherapy. Review of Systems: She had an active weekend and may have overdone it in terms of physical activity. She washed down a trailer and is having neck and bilateral shoulder pain. She is having pain in the right elbow. She is also experiencing pain in her hips. She has moderate fatigue. Her weight is fluctuating but is basically stable. In terms of pulmonary symptoms, she has a moderate productive cough. Vital Signs: Performed on 06/14/2021 4:04 PM BMI - 31.214 kg/m2 (high), Height - 61.00 in, Weight - 165.2 lbs, Temperature - 98.2 f, Pulse - 66, Respiration - 20, O2 Sat - 96 %, Pain - 4 and BP - 102/ 64 mm(hg)(/low). Physical Exam: No bone tenderness. Her shoulders and hips have a free range of motion without pain. No abnormality of the right elbow seen. No cervical or supraclavicular lymphadenopathy. Lungs clear with no rales rhonchi or wheezes. Imaging: Radiation therapy imaging related to accurate target localization (i.e. KV, MV and CBCT) was reviewed. Appropriate changes, if any, were made to ensure treatment accuracy. Plan: Continue treatment according to plan. She may need to be a little more cautious with her physical activities. That was discussed. Pulmonary symptoms at this time are minimal. Signed by: Dr. Juancho Vora 06/14/2021 4:38:29 PM
[2021-06-16 12:26] LABS: Basophils # 0.1 10^3/uL (0.0-0.1); Basophils % 0.7 %; Hematocrit 33.5 % (37.0-47.0); Hemoglobin 10.3 g/dL (11.5-15.3); Lymphocytes % 11.8 %; Mean Corpuscular HGB Conc 30.7 g/dL (30.0-36.0); Mean Corpuscular Hemoglobin 25.7 pg (28.0-34.0); Mean Corpuscular Volume 83.5 fL (81-99); Mean Platelet Volume 9.7 fL (7.4-10.4); Monocytes % 0.2 %; Neutrophils # 6.97 10^3/uL (1.8-7.7); Neutrophils % 85.3 %; Nucleated Red Blood Cells % 0.4 %; Platelet Count 531 10^3/cmm (130-400); Positive M 1; Red Blood Count 4.01 10^6/uL (4.1-5.3); Red Cell Distribution Width 16.7 % (12.1-15.1); White Blood Count 8.2 10^3/uL (4.0-10.0)
[2021-06-16 12:37] LABS: Slide Review Slide Review Perform
[2021-06-16 12:56] LABS: Alanine Aminotransferase 11 U/L (0-33); Albumin Level 3.8 g/dL (3.5-5.2); Alkaline Phosphatase 76 IU/L (35-105); Anion Gap 17.1 (5-19); Aspartate Amino Transferase 13 U/L (0-32); Blood Urea Nitrogen 12 mg/dL (8-23); Calcium 8.4 mg/dL (8.5-10.5); Carbon Dioxide 19 mmol/L (22-29); Chloride 102 mmol/L (98-107); Globulin 2.6 g/dL (1.3-4.6); Glucose 132 mg/dL (65-115); Osmolality Calculated 280 mOsm/kg (285-295); Potassium 4.1 mmol/L (3.5-5.1); Sodium 134 mmol/L (136-145); Total Bilirubin 0.3 mg/dL (0.15-1.2); Total Protein 6.4 g/dL (6.6-8.7)
[2021-06-16] MEDS: diphenhydrAMINE 50 mg/mL SDV 1mL 25 MG IVP (14:15)
[2021-06-16] MEDS: famotidine 20 mg/2 mL INJ IVP (14:17)
[2021-06-16] MEDS: palonosetron 0.25 mg/5 mL SDV IVP (14:18)
[2021-06-16] MEDS: sodium chloride 0.9% 250 ML 75 ML IV (14:53)
== END 2021-06-19 23:59 | disposition home or self-care (01) ==
LOC: ONCMED 05:52
PROVIDERS: Absent Provider Specialist; PCP Nurse Practitioner Family; Visit Provider Internal Medicine Medical Oncology
DX: Z51.0 Encounter for antineoplastic radiation therapy (principal); Z51.11 Encounter for antineoplastic chemotherapy; C34.12 Malignant neoplasm of upper lobe, left bronchus or lung; J98.11 Atelectasis; J44.9 Chronic obstructive pulmonary disease, unspecified; I10 Essential (primary) hypertension; E78.5 Hyperlipidemia, unspecified; E03.9 Hypothyroidism, unspecified; K25.7 Chronic gastric ulcer without hemorrhage or perforation; Z86.718 Personal history of other venous thrombosis and embolism; Z90.81 Acquired absence of spleen; Z79.899 Other long term (current) drug therapy
CPT/HCPCS: 36415; 36591; 70470; 77300; 77301; 77334; 77336; 77338; 77386; 77470; 80053; 85025; 96367; 96375; 96413; 96415; 96417; 99214; J1100; J1200; J2469; J3490; J7030; J7040; J7050; J9045; J9267; Q9967

== ENCOUNTER 2021-07-19 05:46 | Outpatient (RCR) | payer MEDICARE, SELFPAY ==
[2021-06-23 09:54] LABS: Basophils % 0.5 %; Hematocrit 30.3 % (37.0-47.0); Hemoglobin 9.2 g/dL (11.5-15.3); Lymphocytes # 0.4 10^3/uL (0.8-4.8); Lymphocytes % 19.8 %; Mean Corpuscular HGB Conc 30.4 g/dL (30.0-36.0); Mean Corpuscular Hemoglobin 25.6 pg (28.0-34.0); Mean Corpuscular Volume 84.2 fL (81-99); Monocytes % 0.9 %; Neutrophils # 1.66 10^3/uL (1.8-7.7); Neutrophils % 78.3 %; Nucleated Red Blood Cells % 1.9 %; Platelet Count 446 10^3/cmm (130-400); White Blood Count 2.1 10^3/uL (4.0-10.0)
[2021-06-23 10:15] LABS: Alanine Aminotransferase 8 U/L (0-33); Albumin Level 3.7 g/dL (3.5-5.2); Alkaline Phosphatase 75 IU/L (35-105); Aspartate Amino Transferase 12 U/L (0-32); Blood Urea Nitrogen 12 mg/dL (8-23); Calcium 8.4 mg/dL (8.5-10.5); Carbon Dioxide 20 mmol/L (22-29); Chloride 107 mmol/L (98-107); Globulin 2.5 g/dL (1.3-4.6); Glomerular Filtration Rate 71.1 mL/min (90-130); Glucose 168 mg/dL (65-115); Osmolality Calculated 288 mOsm/kg (285-295); Sodium 137 mmol/L (136-145); Total Bilirubin 0.2 mg/dL (0.15-1.2); Total Protein 6.2 g/dL (6.6-8.7)
[2021-06-23 11:25] LABS: Slide Review Slide Review Perform
--- NOTE | 2021-06-23 13:15 | ONCRAD TMN_ITS ---
Radiation Oncology Treatment Management Note Patient Name: May Cummings Date of : 1950 Date of Service: 06/22/2021 Attending Physician: Fernando Murphy M.D. 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 The patient has received 18 Gy of a prescribed 60 Neumann with an intensity modulated radiotherapy plan utilizing a step and shoot treatment technique. She has been prescribed carboplatin (AUC 2) and paclitaxel (50 mg/m???) weekly during therapy. Upon review of systems, she denied pulmonary symptoms. On physical examination, the patient weighed 163 lbs. Her temperature was 98.6 ???F with a blood pressure of 120/75 mmHg. The pulse was 67 bpm and her respiratory rate was 18. Oxygen saturation while breathing room air was 98%. There was no erythema within the treatment spears. Auscultation of the posterior lung spears identified bronchial breath sounds. Continue thoracic radiotherapy as prescribed. Signed by: Dr. Fernando Murphy 06/23/2021 1:13:36 PM
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
--- NOTE | 2021-06-29 16:37 | ONCRAD TMN_ITS ---
Radiation Oncology Treatment Management Note Patient Name: May Cummings Date of : 1950 Date of Service: 06/29/2021 Attending Physician: Fernando Murphy M.D. 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 The patient has received 28 Gy of a prescribed 60 Neumann with an intensity modulated radiotherapy plan utilizing a step and shoot treatment technique. She has been prescribed carboplatin (AUC 2) and paclitaxel (50 mg/m???) weekly during therapy. Upon review of systems, she denied pulmonary symptoms. On physical examination, the patient weighed 162 lbs. Her temperature was 98.8 ???F with a blood pressure of 112/71 mmHg. The pulse was 87 bpm and her respiratory rate was 20. Oxygen saturation while breathing room air was 96%. There was no erythema within the treatment spears. Auscultation of the posterior lung spears identified bronchial breath sounds. Continue thoracic radiotherapy as planned. Signed by: Dr. Fernando Murphy 06/29/2021 4:35:54 PM
[2021-06-30 10:06] LABS: Basophils % 0.6 %; Hematocrit 31.7 % (37.0-47.0); Hemoglobin 9.7 g/dL (11.5-15.3); Lymphocytes # 0.5 10^3/uL (0.8-4.8); Lymphocytes % 14.6 %; Mean Corpuscular HGB Conc 30.6 g/dL (30.0-36.0); Mean Corpuscular Hemoglobin 25.6 pg (28.0-34.0); Mean Corpuscular Volume 83.6 fL (81-99); Mean Platelet Volume 9.3 fL (7.4-10.4); Monocytes # 0.1 10^3/uL (0.2-0.9); Monocytes % 2.2 %; Neutrophils # 2.57 10^3/uL (1.8-7.7); Neutrophils % 81.3 %; Nucleated Red Blood Cells % 0 %; Platelet Count 425 10^3/cmm (130-400); Red Blood Count 3.79 10^6/uL (4.1-5.3); Red Cell Distribution Width 18.7 % (12.1-15.1); White Blood Count 3.2 10^3/uL (4.0-10.0)
[2021-06-30 10:11] LABS: Alanine Aminotransferase 9 U/L (0-33); Albumin Level 3.8 g/dL (3.5-5.2); Alkaline Phosphatase 93 IU/L (35-105); Anion Gap 17.1 (5-19); Aspartate Amino Transferase 10 U/L (0-32); Blood Urea Nitrogen 10 mg/dL (8-23); Calcium 8.3 mg/dL (8.5-10.5); Carbon Dioxide 19 mmol/L (22-29); Chloride 105 mmol/L (98-107); Globulin 2.7 g/dL (1.3-4.6); Glomerular Filtration Rate 71.1 mL/min (90-130); Glucose 156 mg/dL (65-115); Osmolality Calculated 286 mOsm/kg (285-295); Potassium 4.1 mmol/L (3.5-5.1); Sodium 137 mmol/L (136-145); Total Bilirubin 0.2 mg/dL (0.15-1.2); Total Protein 6.5 g/dL (6.6-8.7)
[2021-06-30 10:47] LABS: Slide Review Slide Review Perform
[2021-06-30] MEDS: diphenhydrAMINE 50 mg/mL SDV 1mL 25 MG IV (11:36)
[2021-06-30] MEDS: famotidine 20 mg/2 mL INJ IVP (11:38)
[2021-06-30] MEDS: sodium chloride 0.9% 250 ML 75 ML IV (11:40)
[2021-06-30] MEDS: palonosetron 0.25 mg/5 mL SDV IV (11:42)
--- NOTE | 2021-07-06 16:25 | ONCRAD TMN_ITS ---
Radiation Oncology Treatment Management Note Patient Name: May Cummings Date of : 1950 Date of Service: 07/06/2021 Attending Physician: Fernando Murphy M.D. 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 The patient has received 36 Gy of a prescribed 60 Neumann with an intensity modulated radiotherapy plan utilizing a step and shoot treatment technique. She has been prescribed carboplatin (AUC 2) and paclitaxel (50 mg/m???) weekly during therapy. Upon review of systems, she denied pulmonary symptoms. On physical examination, the patient weighed 162 lbs. Her temperature was 98.6 ???F with a blood pressure of 127/71 mmHg. The pulse was 68 bpm and her respiratory rate was 20. Oxygen saturation while breathing room air was 100%. There was no erythema within the treatment spears. Auscultation of the posterior lung spears identified clear breath sounds. Continue thoracic radiotherapy as prescribed. Signed by: Dr. Fernando Murphy 07/06/2021 4:23:58 PM
[2021-07-07 10:53] LABS: Basophils % 0.4 %; Hematocrit 32.9 % (37.0-47.0); Hemoglobin 10.1 g/dL (11.5-15.3); Lymphocytes # 0.2 10^3/uL (0.8-4.8); Lymphocytes % 4.1 %; Mean Corpuscular HGB Conc 30.7 g/dL (30.0-36.0); Mean Corpuscular Volume 84.6 fl (81-99); Mean Platelet Volume 9.5 fL (7.4-10.4); Monocytes % 0.5 %; Neutrophils # 5.28 10^3/uL (1.8-7.7); Neutrophils % 93.8 %; Nucleated Red Blood Cells % 0.4 %; Platelet Count 326 10^3/cmm (130-400); Positive M 1; Red Blood Count 3.89 10^6/uL (4.1-5.3); Red Cell Distribution Width 19.4 % (12.1-15.1); White Blood Count 5.6 10^3/uL (4.0-10.0)
[2021-07-07 11:30] LABS: Alanine Aminotransferase 9 U/L (0-33); Albumin Level 3.8 g/dL (3.5-5.2); Alkaline Phosphatase 81 IU/L (35-105); Anion Gap 16.2 (5-19); Aspartate Amino Transferase 11 U/L (0-32); Blood Urea Nitrogen 13 mg/dL (8-23); Calcium 8.9 mg/dL (8.5-10.5); Carbon Dioxide 19 mmol/L (22-29); Chloride 104 mmol/L (98-107); Globulin 2.8 g/dL (1.3-4.6); Glomerular Filtration Rate 71.1 mL/min (90-130); Glucose 173 mg/dL (65-115); Osmolality Calculated 284 mOsm/kg (285-295); Potassium 4.2 mmol/L (3.5-5.1); Sodium 135 mmol/L (136-145); Total Bilirubin 0.2 mg/dL (0.15-1.2); Total Protein 6.6 g/dL (6.6-8.7)
[2021-07-07 11:32] LABS: Slide Review Slide Review Perform
[2021-07-07] MEDS: famotidine 20 mg/2 mL INJ IVP (12:20)
[2021-07-07] MEDS: diphenhydrAMINE 50 mg/mL SDV 1mL 25 MG IVP (12:22)
[2021-07-07] MEDS: palonosetron 0.25 mg/5 mL SDV IVP (12:25)
[2021-07-07] MEDS: sodium chloride 0.9% 250 ML 75 ML IV (15:42)
--- NOTE | 2021-07-13 16:11 | ONCRAD TMN_ITS ---
Radiation Oncology Treatment Management Note Patient Name: May Cummings Date of : 1950 Date of Service: 07/13/2021 Attending Physician: Fernando Murphy M.D. 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 The patient has received 46 Gy of a prescribed 60 Neumann with an intensity modulated radiotherapy plan utilizing a step and shoot treatment technique. She has been prescribed carboplatin (AUC 2) and paclitaxel (50 mg/m???) weekly during therapy. Upon review of systems, she described esophagitis and ageusia. On physical examination, the patient weighed 163 lbs. Her temperature was 98.3 ???F with a blood pressure of 100/70 mmHg. The pulse was 72 bpm and her respiratory rate was 20. Oxygen saturation while breathing room air was 97%. There was no erythema within the treatment spears. Auscultation of the posterior lung spears identified clear breath sounds. Continue thoracic radiotherapy as planned. Recommend narcotic for odynophagia. Signed by: Dr. Fernando Murphy 07/13/2021 4:09:31 PM
[2021-07-13 16:54] LABS: Basophils % 1.6 %; Eosinophils # 0.1 10^3/uL (0.0-0.8); Eosinophils % 4.2 %; Hemoglobin 8.8 g/dL (11.5-15.3); Lymphocytes # 0.6 10^3/uL (0.8-4.8); Lymphocytes % 31.6 %; Mean Corpuscular HGB Conc 30.3 g/dL (30.0-36.0); Mean Corpuscular Hemoglobin 25.5 pg (28.0-34.0); Mean Corpuscular Volume 84.1 fl (81-99); Mean Platelet Volume 10.3 fL (7.4-10.4); Monocytes # 0.2 10^3/uL (0.2-0.9); Monocytes % 9.5 %; Neutrophils % 52.6 %; Nucleated Red Blood Cells % 2.1 %; Platelet Count 280 10^3/cmm (130-400); Red Blood Count 3.45 10^6/uL (4.1-5.3); Red Cell Distribution Width 20.1 % (12.1-15.1); White Blood Count 1.9 10^3/uL (4.0-10.0)
[2021-07-13 17:30] LABS: Alanine Aminotransferase 9 U/L (0-33); Albumin Level 3.5 g/dL (3.5-5.2); Alkaline Phosphatase 72 IU/L (35-105); Anion Gap 12.8 (5-19); Aspartate Amino Transferase 11 U/L (0-32); Blood Urea Nitrogen 7 mg/dL (8-23); Calcium 8.7 mg/dL (8.5-10.5); Carbon Dioxide 22 mmol/L (22-29); Chloride 106 mmol/L (98-107); Globulin 2.1 g/dL (1.3-4.6); Glucose 95 mg/dL (65-115); Osmolality Calculated 282 mOsm/kg (285-295); Potassium 3.8 mmol/L (3.5-5.1); Sodium 137 mmol/L (136-145); Total Bilirubin 0.2 mg/dL (0.15-1.2); Total Protein 5.6 g/dL (6.6-8.7)
== END 2021-07-20 23:59 | disposition home or self-care (01) ==
LOC: ONCMED 05:46
PROVIDERS: Internal Medicine Medical Oncology; Absent Provider Radiology Radiation Oncology; PCP Nurse Practitioner Family; Visit Provider Specialist
DX: Z51.0 Encounter for antineoplastic radiation therapy (principal); Z51.11 Encounter for antineoplastic chemotherapy; C34.12 Malignant neoplasm of upper lobe, left bronchus or lung; J44.9 Chronic obstructive pulmonary disease, unspecified; I10 Essential (primary) hypertension; E78.5 Hyperlipidemia, unspecified; E05.00 Thyrotoxicosis with diffuse goiter without thyrotoxic crisis or storm; K27.7 Chronic peptic ulcer, site unspecified, without hemorrhage or perforation; K29.50 Unspecified chronic gastritis without bleeding; Z86.718 Personal history of other venous thrombosis and embolism; Z90.81 Acquired absence of spleen; Z79.899 Other long term (current) drug therapy
CPT/HCPCS: 36415; 36591; 77336; 77386; 80053; 85025; 96367; 96368; 96375; 96413; 96417; 99214; J1100; J1200; J2469; J3490; J7030; J7040; J7050; J9045; J9267

== ENCOUNTER 2021-08-12 06:27 | Outpatient (RCR) | payer MEDICARE, SELFPAY ==
--- NOTE | 2021-07-21 17:33 | ONCRAD TMN_ITS ---
Radiation Oncology Weekly Treatment Management Patient: May Cummings MR#: [id number] : 1950> Attending Physician: Dr. Juancho Vora Date of Service: 07/21/2021 Referring Physician(s) : Diagnosis: C34.12 - Malignant neoplasm of upper lobe, left bronchus or lung, Diagnosed 03/31/2021 (Active) Stage IB, T2a, N0, M0 Radiotherapy to date: Course: Lung 2020, Treatment Site: Lung Ca ??? JIMENEZ, Ref. ID: [id number], Energy: 6X, Dose/Fx (cGy): 200, #Fx: / 30, Dose Correction (cGy): 0, Total Dose (cGy): 5,600, Start Date: 06/09/2021, Elapsed Days: 42 Reason for visit: The patient is being seen today as part of their regularly scheduled weekly on treatment visits to assess for acute toxicities from radiotherapy. Review of Systems: She has 2 treatments to go. She states her breathing is better. She denies cough, sputum production, or hemoptysis. Food does not taste good. However, she is keeping up her fluid intake and calorie intake adequately. She has no esophagitis symptoms at this time. She has a mild skin reaction on the chest wall. She is applying hydrocortisone. Vital Signs: Performed on 07/21/2021 4:12 PM BMI - 30.648 kg/m2 (high), Height - 61.00 in, Weight - 162.2 lbs, Temperature - 97.8 f, Pulse - 61 /min, Respiration - 20 /min, O2 Sat - 97 %, Pain - 8 and BP - 108/ 64 mm(hg)(/low). Physical Exam: Mild erythema of the chest wall. No excessive skin reaction. Lungs are clear bilaterally with no rales rhonchi or wheezes. Heart rhythm regular with no murmur or gallop. Imaging: Radiation therapy imaging related to accurate target localization (i.e. KV, MV and CBCT) was reviewed. Appropriate changes, if any, were made to ensure treatment accuracy. Plan: Continue radiation. She will finish in 2 sessions. She will return approximately 1 month later and she tells me imaging is planned at that time. Signed by: Dr. Juancho Vora 07/21/2021 5:32:22 PM
--- NOTE | 2021-07-23 12:19 | N.ONRD TS_ITS ---
Radiation Oncology Treatment Summary Patient: May Cummings MR#: [id number] : 1950> Age: 71> Sex: Female Dictated by: Dr. Juancho Vora Date of Service: 07/23/2021 Referring Physician(s) : Brett Watts MD Diagnosis: C34.12 - Malignant neoplasm of upper lobe, left bronchus or lung, Diagnosed 03/31/2021 (Active) Stage IB, T2a, N0, M0 Radiotherapy to Date: Course: Lung 2020, Treatment Site: Lung Ca ??? JIMENEZ, Ref. ID: [id number], Energy: 6X, Dose/Fx (cGy): 200, #Fx: 30 / 30, Dose Correction (cGy): 0, Total Dose (cGy): 6,000, Start Date: 06/09/2021, End Date: 07/23/2021, Elapsed Days: 44 Clinical Summary: The patient tolerated RT well. Her breathing improved significantly and at the completion of treatment she had no cough, hemoptysis, or sputum production. She had no symptoms of esophagitis, although she was experiencing some decrease in appetite and altered taste. She had a mild skin reaction with erythema and dry desquamation. The skin reaction responded well to hydrocortisone topical applications. On the last day of treatment, the patient complained of troublesome pain in her left shoulder. Her physical examination did not reveal any loss of strength in the left hand or arm. There was no tenderness along the course of the arm. The neck was supple and nontender to palpation. The trapezius muscle had significant spasm which appeared to be the source of the pain. She was told to cautiously apply heat, gentle massage, and to take her prescription muscle relaxer and pain medication as needed. Plan: End of treatment today. Continue on the above medication until the skin reaction resolves. Follow up in one month. Signed by: Dr. Juancho Vora>07/23/2021 12:17:49 PM <<Signature on File>>
--- NOTE | 2021-07-29 10:10 | CT_ITS ---
WS: [id number] CT CHEST TECHNIQUE: Contrast enhanced CT of the chest with coronal and sagittal reformatted images. CLINICAL INFORMATION: LUNG CANCER COMPARISON: CT 05/10 and PET/CT March 30, 2021 DLP: 845.[address] scans at [facility] use at least one of these dose optimization techniques: automated e xposure control; mA and/or kV adjustment per patient size (includes targeted exams where dose is matc hed to clinical indication); or iterative reconstruction. FINDINGS: Postoperative changes involving the left hilum and left upper lobe. Left upper lobe bronchus is paten t today. Previously described left upper lobe consolidation has resolved. Interstitial fibrosis in th e left upper lobe medially with soft tissue thickening along the left lung apex and mediastinum. Smal l amount of soft tissue measures 2.5 x 2.0 CM. This may represent postoperative changes with a small amount of residual disease not excluded. This can be followed up with PET/CT versus 3 month follow-up chest CT. No evidence of left hilar mass. No lymphadenopathy. Normal caliber thoracic aorta. Proximal main pulmonary arteries appear normal. No mediastinal or jamie r lymphadenopathy. No axillary lymphadenopathy. Adrenal glands are normal. Small esophageal hiatal hernia. Moderate chronic emphysematous changes. CT/CT chest w con* [id number] IMPRESSION: 1. Postoperative changes left hilum and left upper lobe. Small amount of resid ual/recurrent soft tissue thickening in the left upper lobe medially along the mediastinum measuring 2.5 x 1.9 cm. This may represent postoperative change but a small amount of residual disease not excluded. This can be followed up with PET/CT versus 3 follow-up. 2. Left upper bronchus is patent today. No mediastinal or hilar lymphadenopath y. No evidence of recurrent left hilar mass. 3. Moderate to advanced chronic emphysematous changes. 4. No other significant changes from previous.
[2021-07-29] MEDS: iohexol 300 mg/mL 100 mL Btl IV (10:30)
[2021-08-12 15:16] LABS: Basophils # 0.1 10^3/uL (0.0-0.1); Eosinophils # 0.4 10^3/uL (0.0-0.8); Eosinophils % 6.1 %; Hematocrit 30.3 % (37.0-47.0); Hemoglobin 9.3 g/dL (11.5-15.3); Lymphocytes # 2.9 10^3/uL (0.8-4.8); Lymphocytes % 41.7 %; Mean Corpuscular HGB Conc 30.7 g/dL (30.0-36.0); Mean Corpuscular Hemoglobin 25.5 pg (28.0-34.0); Monocytes # 0.9 10^3/uL (0.2-0.9); Neutrophils # 2.62 10^3/uL (1.8-7.7); Neutrophils % 37.8 %; Nucleated Red Blood Cells % 0 %; Platelet Count 569 10^3/cmm (130-400); Red Blood Count 3.65 10^6/uL (4.1-5.3); Red Cell Distribution Width 21.2 % (12.1-15.1); White Blood Count 6.9 10^3/uL (4.0-10.0)
[2021-08-12 15:50] LABS: Alanine Aminotransferase 6 U/L (0-33); Albumin Level 3.7 g/dL (3.5-5.2); Alkaline Phosphatase 112 IU/L (35-105); Anion Gap 13.8 (5-19); Aspartate Amino Transferase 11 U/L (0-32); Blood Urea Nitrogen 7 mg/dL (8-23); Calcium 9.2 mg/dL (8.5-10.5); Carbon Dioxide 22 mmol/L (22-29); Chloride 107 mmol/L (98-107); Globulin 3.1 g/dL (1.3-4.6); Glomerular Filtration Rate 71.1 mL/min (90-130); Glucose 88 mg/dL (65-115); Osmolality Calculated 285 mOsm/kg (285-295); Potassium 3.8 mmol/L (3.5-5.1); Sodium 139 mmol/L (136-145); Total Bilirubin 0.2 mg/dL (0.15-1.2); Total Protein 6.8 g/dL (6.6-8.7)
[2021-08-12 16:32] LABS: Iron 17 ug/dL (37-145); Percent Saturation 4.5 % (20-50); Thyroid Stimulating Hormone 5.62 uIU/mL (0.27-4.20); Total Iron Binding Capacity 370 mcg/dl; Unsaturated Iron Binding 353 ug/dL (112-347)
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
== END 2021-08-19 23:59 | disposition home or self-care (01) ==
LOC: ONCMED 06:27
PROVIDERS: Absent Provider Radiology Radiation Oncology; PCP Nurse Practitioner Family; Visit Provider Internal Medicine Medical Oncology
DX: Z51.0 Encounter for antineoplastic radiation therapy (principal); C34.12 Malignant neoplasm of upper lobe, left bronchus or lung; J44.9 Chronic obstructive pulmonary disease, unspecified; I10 Essential (primary) hypertension; E05.00 Thyrotoxicosis with diffuse goiter without thyrotoxic crisis or storm; E78.5 Hyperlipidemia, unspecified; K27.7 Chronic peptic ulcer, site unspecified, without hemorrhage or perforation; K29.70 Gastritis, unspecified, without bleeding; Z86.718 Personal history of other venous thrombosis and embolism; Z90.81 Acquired absence of spleen; Z79.899 Other long term (current) drug therapy
CPT/HCPCS: 36591; 71260; 77336; 77386; 80053; 83540; 83550; 84443; 85025; 99215; Q9967

== ENCOUNTER 2021-08-24 06:21 | Outpatient (RCR) | payer MEDICARE, SELFPAY ==
--- NOTE | 2021-08-20 11:35 | ONCRAD EPV_ITS ---
Radiation Oncology Follow-Up Note Patient Name: May Cummings Date of : 1950 Date of Service: 08/20/2021 Attending Physician: Fernando Murphy M.D. May Cummings returned to my office this morning for a routinely scheduled follow-up appointment. 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 She was prescribed carboplatin (AUC 2) and paclitaxel (50 mg/m???) weekly during therapy. Thoracic radiation therapy was delivered between the dates of June 09, 2021 through July 23, 2021. A prescribed dose of 60 Gy was delivered in 30 fractions encompassing 45 elapsed days. On review of systems, she denied pulmonary complaints On physical examination, she weighed 161 lbs and her temperature was 98 ???F. Her blood pressure was 155/88 mmHg. The pulse was 81 bpm and the respiratory rate was 20 breaths per minute. Her oxygen saturation while breathing ambient air was 98%. Auscultation of the posterior lung spears identified bronchial breath sounds. In summary, Ms. Cummings returned for a routine post-radiotherapy follow-up. She will begin Imfinzi immunotherapy as scheduled with her medical oncologist. Signed by: Dr. Fernando Murphy 08/20/2021 11:34:13 AM
[2021-08-24 12:55] LABS: Basophils # 0.1 10^3/uL (0.0-0.1); Eosinophils # 0.6 10^3/uL (0.0-0.8); Eosinophils % 7.8 %; Hematocrit 32.5 % (37.0-47.0); Hemoglobin 9.9 g/dL (11.5-15.3); Lymphocytes # 2.5 10^3/uL (0.8-4.8); Lymphocytes % 32.5 %; Mean Corpuscular HGB Conc 30.5 g/dL (30.0-36.0); Mean Corpuscular Hemoglobin 25.8 pg (28.0-34.0); Mean Corpuscular Volume 84.9 fl (81-99); Monocytes # 0.8 10^3/uL (0.2-0.9); Monocytes % 10.4 %; Neutrophils # 3.67 10^3/uL (1.8-7.7); Neutrophils % 47.8 %; Nucleated Red Blood Cells % 0 %; Platelet Count 559 10^3/cmm (130-400); Red Blood Count 3.83 10^6/uL (4.1-5.3); Red Cell Distribution Width 23.7 % (12.1-15.1); White Blood Count 7.7 10^3/uL (4.0-10.0)
[2021-08-24 13:20] LABS: Alanine Aminotransferase 6 U/L (0-33); Albumin Level 3.6 g/dL (3.5-5.2); Alkaline Phosphatase 107 IU/L (35-105); Anion Gap 13.5 (5-19); Aspartate Amino Transferase 12 U/L (0-32); Blood Urea Nitrogen 7 mg/dL (8-23); Calcium 8.9 mg/dL (8.5-10.5); Carbon Dioxide 24 mmol/L (22-29); Chloride 104 mmol/L (98-107); Globulin 2.8 g/dL (1.3-4.6); Glomerular Filtration Rate 71.1 mL/min (90-130); Glucose 104 mg/dL (65-115); Osmolality Calculated 284 mOsm/kg (285-295); Potassium 3.5 mmol/L (3.5-5.1); Sodium 138 mmol/L (136-145); Total Bilirubin 0.2 mg/dL (0.15-1.2); Total Protein 6.4 g/dL (6.6-8.7)
[2021-08-24] MEDS: sodium chloride 0.9% 250 ML 290 ML IV (14:40)
== END 2021-09-19 23:59 | disposition home or self-care (01) ==
LOC: ONCMED 06:21
PROVIDERS: PCP Nurse Practitioner Family; Visit Provider Internal Medicine Medical Oncology
DX: Z51.12 Encounter for antineoplastic immunotherapy (principal); C34.12 Malignant neoplasm of upper lobe, left bronchus or lung; D50.9 Iron deficiency anemia, unspecified; Z79.899 Other long term (current) drug therapy
CPT/HCPCS: 80053; 85025; 96413; J7050; J9173

== ENCOUNTER 2021-10-19 06:29 | Outpatient (RCR) | payer MEDICARE, SELFPAY ==
[2021-09-21 08:47] LABS: Basophils # 0.1 10^3/uL (0.0-0.1); Basophils % 1.2 %; Eosinophils # 0.4 10^3/uL (0.0-0.8); Eosinophils % 3.9 %; Hematocrit 34.3 % (37.0-47.0); Hemoglobin 10.3 g/dL (11.5-15.3); Lymphocytes # 2.1 10^3/uL (0.8-4.8); Lymphocytes % 22.3 %; Mean Corpuscular Hemoglobin 25.9 pg (28.0-34.0); Mean Corpuscular Volume 86.4 fl (81-99); Mean Platelet Volume 9.1 fL (7.4-10.4); Monocytes # 0.9 10^3/uL (0.2-0.9); Monocytes % 9.5 %; Neutrophils # 5.97 10^3/uL (1.8-7.7); Neutrophils % 62.6 %; Nucleated Red Blood Cells % 0 %; Platelet Count 480 10^3/cmm (130-400); Red Blood Count 3.97 10^6/uL (4.1-5.3); Red Cell Distribution Width 24.2 % (12.1-15.1); White Blood Count 9.5 10^3/uL (4.0-10.0)
[2021-09-21 09:15] LABS: Alanine Aminotransferase 7 U/L (0-33); Albumin Level 3.5 g/dL (3.5-5.2); Alkaline Phosphatase 93 IU/L (35-105); Aspartate Amino Transferase 13 U/L (0-32); Blood Urea Nitrogen 11 mg/dL (8-23); Calcium 8.9 mg/dL (8.5-10.5); Carbon Dioxide 24 mmol/L (22-29); Chloride 107 mmol/L (98-107); Globulin 2.8 g/dL (1.3-4.6); Glomerular Filtration Rate 71.1 mL/min (90-130); Glucose 110 mg/dL (65-115); Osmolality Calculated 290 mOsm/kg (285-295); Sodium 140 mmol/L (136-145); Thyroid Stimulating Hormone 0.75 uIU/mL (0.27-4.20); Total Bilirubin 0.2 mg/dL (0.15-1.2); Total Protein 6.3 g/dL (6.6-8.7)
[2021-09-21] MEDS: sodium chloride 0.9% 250 ML 75 ML IV (10:50)
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
[2021-10-19 08:48] LABS: Basophils # 0.1 10^3/uL (0.0-0.1); Basophils % 1.2 %; Eosinophils # 0.3 10^3/uL (0.0-0.8); Eosinophils % 2.8 %; Hematocrit 35.3 % (37.0-47.0); Hemoglobin 11.3 g/dL (11.5-15.3); Lymphocytes # 2.3 10^3/uL (0.8-4.8); Lymphocytes % 24.5 %; Mean Corpuscular Hemoglobin 27.1 pg (28.0-34.0); Mean Corpuscular Volume 84.7 fl (81-99); Mean Platelet Volume 9.1 fL (7.4-10.4); Monocytes # 0.7 10^3/uL (0.2-0.9); Monocytes % 8.1 %; Neutrophils # 5.77 10^3/uL (1.8-7.7); Nucleated Red Blood Cells % 0 %; Platelet Count 501 10^3/cmm (130-400); Red Blood Count 4.17 10^6/uL (4.1-5.3); Red Cell Distribution Width 20.1 % (12.1-15.1); White Blood Count 9.2 10^3/uL (4.0-10.0)
[2021-10-19 09:23] LABS: Alanine Aminotransferase 6 U/L (0-33); Albumin Level 3.8 g/dL (3.5-5.2); Alkaline Phosphatase 96 IU/L (35-105); Anion Gap 16.3 (5-19); Aspartate Amino Transferase 11 U/L (0-32); Blood Urea Nitrogen 11 mg/dL (8-23); Calcium 8.8 mg/dL (8.5-10.5); Carbon Dioxide 20 mmol/L (22-29); Chloride 110 mmol/L (98-107); Free T4 Free Thyroxine 1.14 ng/dL (0.82-1.77); Globulin 2.2 g/dL (1.3-4.6); Glomerular Filtration Rate 62.1 mL/min (90-130); Glucose 104 mg/dL (65-115); Osmolality Calculated 294 mOsm/kg (285-295); Potassium 4.3 mmol/L (3.5-5.1); Sodium 142 mmol/L (136-145); Thyroid Stimulating Hormone 0.51 uIU/mL (0.27-4.20); Total Bilirubin 0.2 mg/dL (0.15-1.2)
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
== END 2021-10-19 23:59 | disposition home or self-care (01) ==
LOC: ONCMED 06:29
PROVIDERS: PCP Nurse Practitioner Family; Visit Provider Internal Medicine Medical Oncology
DX: Z51.12 Encounter for antineoplastic immunotherapy (principal); C34.12 Malignant neoplasm of upper lobe, left bronchus or lung; J44.9 Chronic obstructive pulmonary disease, unspecified; I10 Essential (primary) hypertension; E05.90 Thyrotoxicosis, unspecified without thyrotoxic crisis or storm; E78.5 Hyperlipidemia, unspecified; K25.7 Chronic gastric ulcer without hemorrhage or perforation; K29.50 Unspecified chronic gastritis without bleeding; Z90.81 Acquired absence of spleen; Z86.718 Personal history of other venous thrombosis and embolism; Z79.899 Other long term (current) drug therapy
CPT/HCPCS: 36591; 80053; 84439; 84443; 85025; 96413; 99214; 99215; J7050; J9173

== ENCOUNTER 2021-11-16 06:35 | Outpatient (RCR) | payer MEDICARE, SELFPAY ==
[2021-11-16] MEDS: sodium chloride 0.9% 250 ML 75 ML IV (13:20)
== END 2021-11-19 23:59 | disposition home or self-care (01) ==
LOC: ONCMED 06:35
PROVIDERS: PCP Nurse Practitioner Family; Visit Provider Internal Medicine Medical Oncology
DX: Z51.12 Encounter for antineoplastic immunotherapy (principal); C34.12 Malignant neoplasm of upper lobe, left bronchus or lung; D50.9 Iron deficiency anemia, unspecified; Z79.899 Other long term (current) drug therapy
CPT/HCPCS: 96413; J7050; J9173

== ENCOUNTER 2021-12-07 14:10 | Outpatient (CLI) | payer MEDICARE, SELFPAY ==
--- NOTE | 2021-12-07 14:29 | CT_ITS ---
WS: [id number] CT CHEST TECHNIQUE: Contrast enhanced CT of the chest with coronal and sagittal reformatted images. CLINICAL INFORMATION: LUNG CANCER COMPARISON: None. DLP: 823.[address] scans at [facility] use at least one of these dose optimization techniques: automated e xposure control; mA and/or kV adjustment per patient size (includes targeted exams where dose is matc hed to clinical indication); or iterative reconstruction. FINDINGS: Advanced chronic emphysematous changes. Fibrosis in the left lung apex. Aortic calcification. Normal caliber thoracic aorta. Proximal main pulmonary arteries are normal. Postoperative changes about the left hilum are stable in appearance. Stable interstitial thickening a nd fibrotic changes in the left hilum extending into the left upper lobe likely treatment-related. Pr eviously described soft tissue thickening about the left upper lobe along the mediastinum has resolve d compared to previous. No mediastinal or hilar lymphadenopathy today. No axillary lymphadenopathy. Adrenal glands are normal. Normal renal parenchymal enhancement. Diffuse fatty infiltration the liver . Normal gallbladder. Small esophageal hiatal hernia. Fatty atrophy of the pancreas. Right Port-A-Cat h. CT/CT chest w con* [id number] IMPRESSION: 1. Postoperative changes left hilum with treatment-related changes extending i nto the left upper lobe similar to previous. 2. No evidence of recurrent or progressive disease. 3. Previous described soft tissue density in the left upper lobe along the med iastinum has resolved. 4. Moderate to advanced chronic emphysematous changes. 5. Small esophageal hiatal hernia. 6. No other significant changes compared to previous.
[2021-12-07] MEDS: iohexol 300 mg/mL 100 mL Btl IV (14:59)
== END 2021-12-07 14:11 | disposition home or self-care (01) ==
LOC: RADWPI 14:21
PROVIDERS: PCP Nurse Practitioner Family; Visit Provider Internal Medicine Medical Oncology
DX: C34.12 Malignant neoplasm of upper lobe, left bronchus or lung (principal); K44.9 Diaphragmatic hernia without obstruction or gangrene
CPT/HCPCS: 71260; Q9967

== ENCOUNTER 2021-12-14 06:27 | Outpatient (RCR) | payer MEDICARE, SELFPAY ==
[2021-12-14 10:28] LABS: Basophils # 0.1 10^3/uL (0.0-0.1); Eosinophils # 0.3 10^3/uL (0.0-0.8); Eosinophils % 3.3 %; Hematocrit 36.5 % (37.0-47.0); Hemoglobin 11.4 g/dL (11.5-15.3); Lymphocytes # 2.8 10^3/uL (0.8-4.8); Lymphocytes % 30.2 %; Mean Corpuscular HGB Conc 31.2 g/dL (30.0-36.0); Mean Corpuscular Hemoglobin 26.8 pg (28.0-34.0); Mean Corpuscular Volume 85.7 fl (81-99); Mean Platelet Volume 9.1 fL (7.4-10.4); Monocytes # 0.8 10^3/uL (0.2-0.9); Monocytes % 8.1 %; Neutrophils # 5.32 10^3/uL (1.8-7.7); Neutrophils % 57.1 %; Nucleated Red Blood Cells % 0 %; Platelet Count 480 10^3/cmm (130-400); Red Blood Count 4.26 10^6/uL (4.1-5.3); Red Cell Distribution Width 17.3 % (12.1-15.1); White Blood Count 9.3 10^3/uL (4.0-10.0)
[2021-12-14 10:58] LABS: Alanine Aminotransferase 8 U/L (0-33); Albumin Level 3.9 g/dL (3.5-5.2); Alkaline Phosphatase 102 IU/L (35-105); Aspartate Amino Transferase 15 U/L (0-32); Blood Urea Nitrogen 14 mg/dL (8-23); Calcium 9.6 mg/dL (8.5-10.5); Carbon Dioxide 20 mmol/L (22-29); Chloride 106 mmol/L (98-107); Globulin 2.7 g/dL (1.3-4.6); Glomerular Filtration Rate 71.1 mL/min (90-130); Glucose 105 mg/dL (65-115); Osmolality Calculated 291 mOsm/kg (285-295); Sodium 140 mmol/L (136-145); Thyroid Stimulating Hormone 1.01 uIU/mL (0.27-4.20); Total Bilirubin 0.2 mg/dL (0.15-1.2); Total Protein 6.6 g/dL (6.6-8.7)
[2021-12-14 11:22] LABS: Free T4 Free Thyroxine 0.94 ng/dL (0.82-1.77)
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
== END 2021-12-20 23:59 | disposition home or self-care (01) ==
LOC: ONCMED 06:27
PROVIDERS: PCP Nurse Practitioner Family; Visit Provider Internal Medicine Medical Oncology
DX: Z51.12 Encounter for antineoplastic immunotherapy (principal); C34.12 Malignant neoplasm of upper lobe, left bronchus or lung; J44.9 Chronic obstructive pulmonary disease, unspecified; I10 Essential (primary) hypertension; D50.9 Iron deficiency anemia, unspecified; E05.90 Thyrotoxicosis, unspecified without thyrotoxic crisis or storm; E78.5 Hyperlipidemia, unspecified; J98.11 Atelectasis; K27.9 Peptic ulcer, site unspecified, unspecified as acute or chronic, without hemorrhage or perforation; K29.70 Gastritis, unspecified, without bleeding; Z86.79 Personal history of other diseases of the circulatory system; Z90.81 Acquired absence of spleen; Z92.21 Personal history of antineoplastic chemotherapy; Z92.3 Personal history of irradiation; Z79.899 Other long term (current) drug therapy
CPT/HCPCS: 80053; 84439; 84443; 85025; 96413; 99215; J7050; J9173

== ENCOUNTER 2022-01-11 06:49 | Outpatient (RCR) | payer MEDICARE, SELFPAY ==
--- NOTE | 2021-12-30 13:36 | XR_ITS ---
WS: [id number] XR lumbar spine 2-3V* [id number] REASON FOR EXAM: BACK PAIN FINDINGS: Significant rotatory scoliosis of the lumbar spine convex right on the AP view of the lumbar spine. Significant biconcave compression deformity of L2 and L3. No focal vertebral body lesion. Significant narrowing of the intervertebral disc spaces L2-S1 with moderate osteophytosis. No signifi cant listhesis. XR/XR lumbar spine 2-3V* [id number] IMPRESSION: Moderately severe multilevel degenerative spondylosis. No findings of metastati c disease.
[2022-01-11 08:54] LABS: Basophils # 0.1 10^3/uL (0.0-0.1); Eosinophils # 0.5 10^3/uL (0.0-0.8); Eosinophils % 5.5 %; Hematocrit 34.4 % (37.0-47.0); Hemoglobin 10.5 g/dL (11.5-15.3); Lymphocytes # 2.7 10^3/uL (0.8-4.8); Lymphocytes % 31.1 %; Mean Corpuscular HGB Conc 30.5 g/dL (30.0-36.0); Mean Corpuscular Hemoglobin 25.8 pg (28.0-34.0); Mean Corpuscular Volume 84.5 fl (81-99); Monocytes % 11.3 %; Neutrophils # 4.39 10^3/uL (1.8-7.7); Neutrophils % 50.8 %; Nucleated Red Blood Cells % 0 %; Platelet Count 459 10^3/cmm (130-400); Red Blood Count 4.07 10^6/uL (4.1-5.3); Red Cell Distribution Width 17.3 % (12.1-15.1); White Blood Count 8.7 10^3/uL (4.0-10.0)
[2022-01-11 09:20] LABS: Alanine Aminotransferase 8 U/L (0-33); Albumin Level 3.7 g/dL (3.5-5.2); Alkaline Phosphatase 110 IU/L (35-105); Anion Gap 12.8 (5-19); Aspartate Amino Transferase 13 U/L (0-32); Blood Urea Nitrogen 12 mg/dL (8-23); Calcium 8.8 mg/dL (8.5-10.5); Carbon Dioxide 23 mmol/L (22-29); Chloride 106 mmol/L (98-107); Globulin 2.3 g/dL (1.3-4.6); Glomerular Filtration Rate 71.1 mL/min (90-130); Glucose 101 mg/dL (65-115); Osmolality Calculated 286 mOsm/kg (285-295); Potassium 3.8 mmol/L (3.5-5.1); Sodium 138 mmol/L (136-145); Thyroid Stimulating Hormone 0.68 uIU/mL (0.27-4.20); Total Bilirubin 0.2 mg/dL (0.15-1.2)
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
== END 2022-01-17 23:59 | disposition home or self-care (01) ==
LOC: ONCMED 06:49
PROVIDERS: PCP Nurse Practitioner Family; Visit Provider Nurse Practitioner Family
DX: Z51.12 Encounter for antineoplastic immunotherapy (principal); C34.12 Malignant neoplasm of upper lobe, left bronchus or lung; J44.9 Chronic obstructive pulmonary disease, unspecified; I10 Essential (primary) hypertension; E05.90 Thyrotoxicosis, unspecified without thyrotoxic crisis or storm; E78.5 Hyperlipidemia, unspecified; K25.7 Chronic gastric ulcer without hemorrhage or perforation; G43.709 Chronic migraine without aura, not intractable, without status migrainosus; F41.9 Anxiety disorder, unspecified; Z87.891 Personal history of nicotine dependence; Z86.718 Personal history of other venous thrombosis and embolism; Z90.81 Acquired absence of spleen; Z79.899 Other long term (current) drug therapy
CPT/HCPCS: 72100; 80053; 84443; 85025; 96413; 99215; J7050; J9173

== ENCOUNTER → 2022-01-24 14:53 | Outpatient (BNVA) | payer MEDICARE, SELFPAY | PROVIDERS: PCP Nurse Practitioner Family; Visit Provider Specialist | DX: G43.711 Chronic migraine without aura, intractable, with status migrainosus (principal); R68.2 Dry mouth, unspecified | CPT/HCPCS: 99212; 99214 ==

== ENCOUNTER 2022-02-08 10:15 | Outpatient (CLI) | payer MEDICARE, SELFPAY ==
[2022-02-08 10:40] LABS: Basophils # 0.1 10^3/uL (0.0-0.1); Basophils % 1.1 %; Eosinophils # 0.4 10^3/uL (0.0-0.8); Eosinophils % 5.3 %; Hematocrit 37.2 % (37.0-47.0); Hemoglobin 11.7 g/dL (11.5-15.3); Lymphocytes # 2.3 10^3/uL (0.8-4.8); Lymphocytes % 27.6 %; Mean Corpuscular HGB Conc 31.5 g/dL (30.0-36.0); Mean Corpuscular Hemoglobin 26.5 pg (28.0-34.0); Mean Corpuscular Volume 84.4 fl (81-99); Mean Platelet Volume 8.9 fL (7.4-10.4); Monocytes # 0.8 10^3/uL (0.2-0.9); Monocytes % 9.4 %; Neutrophils # 4.69 10^3/uL (1.8-7.7); Neutrophils % 56.2 %; Nucleated Red Blood Cells % 0 %; Platelet Count 488 10^3/cmm (130-400); Red Blood Count 4.41 10^6/uL (4.1-5.3); Red Cell Distribution Width 19.2 % (12.1-15.1); White Blood Count 8.3 10^3/uL (4.0-10.0)
[2022-02-08 11:10] LABS: Alanine Aminotransferase 7 U/L (0-33); Albumin Level 4.1 g/dL (3.5-5.2); Alkaline Phosphatase 94 IU/L (35-105); Aspartate Amino Transferase 12 U/L (0-32); Blood Urea Nitrogen 11 mg/dL (8-23); Calcium 9.5 mg/dL (8.5-10.5); Carbon Dioxide 21 mmol/L (22-29); Chloride 106 mmol/L (98-107); Globulin 2.4 g/dL (1.3-4.6); Glomerular Filtration Rate 61.9 mL/min (90-130); Glucose 114 mg/dL (65-115); Osmolality Calculated 286 mOsm/kg (285-295); Sodium 138 mmol/L (136-145); Thyroid Stimulating Hormone 0.15 uIU/mL (0.27-4.20); Total Bilirubin 0.3 mg/dL (0.15-1.2); Total Protein 6.5 g/dL (6.6-8.7)
[2022-02-08 14:55] LABS: Free T4 Free Thyroxine 1.35 ng/dL (0.82-1.77)
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
== END 2022-02-08 10:16 | disposition home or self-care (01) ==
PROVIDERS: Internal Medicine Medical Oncology; PCP Nurse Practitioner Family; Visit Provider Nurse Practitioner Family
DX: Z51.12 Encounter for antineoplastic immunotherapy (principal); C34.12 Malignant neoplasm of upper lobe, left bronchus or lung; J44.9 Chronic obstructive pulmonary disease, unspecified; I10 Essential (primary) hypertension; E78.5 Hyperlipidemia, unspecified; E05.90 Thyrotoxicosis, unspecified without thyrotoxic crisis or storm; K21.9 Gastro-esophageal reflux disease without esophagitis; F41.9 Anxiety disorder, unspecified; Z87.891 Personal history of nicotine dependence; K27.9 Peptic ulcer, site unspecified, unspecified as acute or chronic, without hemorrhage or perforation; Z79.899 Other long term (current) drug therapy
CPT/HCPCS: 80053; 84439; 84443; 85025; 96365; 99215; J7050; J9173

== ENCOUNTER 2022-02-14 12:10 | Outpatient (CLI) | payer MEDICARE, SELFPAY ==
--- NOTE | 2022-02-14 12:19 | CT_ITS ---
WS: [id number] CT ABDOMEN PELVIS TECHNIQUE: Noncontrast CT of the abdomen and contrast-enhanced CT of the abdomen and pelvis with kieran nal and sagittal reformatted images. CLINICAL INFORMATION: LUNG CANCER/BACK PAIN COMPARISON: CT June 14, 2020 and PET/CT March 30, 2021 DLP: 1953.[address] scans at [facility] use at least one of these dose optimization techniques: automated e xposure control; mA and/or kV adjustment per patient size (includes targeted exams where dose is matc hed to clinical indication); or iterative reconstruction. FINDINGS: Mild diffuse fatty infiltration of the liver. Normal portal vein and splenic vein. Normal gallbladder . Small esophageal hiatal hernia. Prior splenectomy. Adrenal glands are normal. Normal renal parenchy mal enhancement. No hydronephrosis. Tiny RIGHT renal cyst. Fatty atrophy of the pancreas. Dilated com mon bile duct measuring 9.5 mm. Suggestion of increased density in the distal common bile duct may re present calculi or debris. Common bile duct dilatation appears new from the prior studies. Recommend further evaluation with MRCP. Gallbladder appears normal. Lung bases are well aerated. Normal caliber abdominal aorta. Mild aortic calcification. No periaortic lymphadenopathy. Small LEFT parasagittal fat-containing umbilical hernia. Supraumbilical fat-containing abdominal wall hernia with wide hernia mouth measuring 3.0 cm. No herniated bowel. This is unchanged from previous. Normal sigmoid colon. A few diverticuli. No evidence of acute diverticulitis. No evidence of small or large bowel obstruction. Advanced disc space narrowing L2-L3, L3-L4, L4-L5, and L5-S1 with vacuum di sc phenomenon. Endplate degenerative changes at L2-L3 and L5-S1. Findings are similar to previous. No acute appearing compression fractures. Moderate central canal stenosis L4-L5. CT/CT abdomen pelvis wo/w [id number] IMPRESSION: 1. Mild diffuse fatty infiltration of the liver 2. Small esophageal hiatal hernia. 3. Dilatation of the common bile duct appears new since the prior examinations measuring 9.5 mm. Increased density in the distal common bile duct may represe nt calculi or debris. This can be further evaluated with MRCP. 4. No abdominal or pelvic lymphadenopathy. 5. Stable supraumbilical and LEFT periumbilical fat containing hernias. No her niated bowel. 6. Advanced osteoarthritis lumbar spine described above. Moderate central arnaldo l stenosis L4-L5.
[2022-02-14] MEDS: iohexol 300 mg/mL 50 mL Btl PO (12:58)
[2022-02-14] MEDS: iohexol 300 mg/mL 100 mL Btl IV (12:58)
== END 2022-02-14 12:11 | disposition home or self-care (01) ==
LOC: RAD 12:13
PROVIDERS: PCP Nurse Practitioner Family; Visit Provider Internal Medicine Medical Oncology
DX: C34.12 Malignant neoplasm of upper lobe, left bronchus or lung (principal); K76.0 Fatty (change of) liver, not elsewhere classified; K44.9 Diaphragmatic hernia without obstruction or gangrene; K42.9 Umbilical hernia without obstruction or gangrene; M47.816 Spondylosis without myelopathy or radiculopathy, lumbar region
CPT/HCPCS: 74178

== ENCOUNTER 2022-03-02 21:44 | Emergency (ER) | payer MEDICARE, SELFPAY ==
[2022-03-02 21:52] VITALS: BP 160/84; PULSE 68; RESP 18; TEMP 37.2; O2SAT 98
[2022-03-02 22:26] LABS: Basophils % 0.2 %; Hematocrit 38.4 % (37.0-47.0); Hemoglobin 12.3 g/dL (11.5-15.3); Lymphocytes % 17.5 %; Mean Corpuscular Hemoglobin 26.5 pg (28.0-34.0); Mean Corpuscular Volume 82.8 fl (81-99); Mean Platelet Volume 9.2 fL (7.4-10.4); Monocytes # 0.3 10^3/uL (0.2-0.9); Monocytes % 2.9 %; Neutrophils # 9.15 10^3/uL (1.8-7.7); Neutrophils % 79.1 %; Nucleated Red Blood Cells % 0 %; Platelet Count 514 10^3/cmm (130-400); Red Blood Count 4.64 10^6/uL (4.1-5.3); Red Cell Distribution Width 18.4 % (12.1-15.1); White Blood Count 11.6 10^3/uL (4.0-10.0)
[2022-03-02 22:52] LABS: Alanine Aminotransferase 10 U/L (0-33); Albumin Level 4.6 g/dL (3.5-5.2); Alkaline Phosphatase 107 IU/L (35-105); Anion Gap 19.7 (5-19); Aspartate Amino Transferase 17 U/L (0-32); Blood Urea Nitrogen 14 mg/dL (8-23); Carbon Dioxide 19 mmol/L (22-29); Chloride 105 mmol/L (98-107); Globulin 2.7 g/dL (1.3-4.6); Glomerular Filtration Rate 70.9 mL/min (90-130); Glucose 171 mg/dL (65-115); Lipase 27 U/L (13-60); Osmolality Calculated 295 mOsm/kg (285-295); Potassium 3.7 mmol/L (3.5-5.1); Sodium 140 mmol/L (136-145); Total Bilirubin 0.3 mg/dL (0.15-1.2); Total Protein 7.3 g/dL (6.6-8.7)
--- NOTE | 2022-03-02 23:30 | ED_ITS ---
HPI - Abdominal Pain General: Chief Complaint: Abdominal Pain Stated Complaint: n/v/d, abdomen pain Time Seen by Provider: 03/02/22 23:29 History of Present Illness: Ms. Cummings is a 72-year-old lady with complex past medical history including hypertension, hyperlipidemia, history of small bowel obstruction, history of constipation, recurrent generalized abdominal pain, history of COPD, history of lung cancer status post completion of treatment who presents to the emergency department due to generalized symptoms. She endorses nausea starting this morning that was subacute in onset. She has generalized abdominal discomfort with it and has had numerous episodes of nonbloody emesis. She reports having small amount of diarrhea as well. Symptoms are worse with movement though she also reports back pain which this may be secondary to. She has tried home medications without significant relief. Density symptoms moderate to severe. Course has been worsening. No other specific changes in health, exacerbating, or alleviating factors identified. Onset (ago): hour(s) Pain Consistency: constant Location: Diffuse Severity: moderate Quality: aching Context: other Review of Systems General: Reports: 10 or more systems reviewed and unremarkable except in HPI and below PFSH ED PFSH: Medical History Anxiety disorder Basilar artery aneurysm Constipation Dyslipidemia Gastritis Hemorrhoid Hypertension Continue on atenolol, hold lisinopril until seen by primary care provider Hyperthyroidism Continue on home methimazole Insomnia Migraine Plantar fasciitis Statin intolerance Surgical History H/O section H/O splenectomy 2007 History of esophagogastroduodenoscopy (EGD) 2019 -gastritis Port-A-Cath in place (04/23/21) Right 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, stent subsequently removed Status post colonoscopy 2018: Normal repeat in 10 years Family History Mother Diabetes Father Heart disease Denies family history of Anesthesia complication Bleeding disorder Social History Smoking and tobacco status: former smoker Quit status (tobacco): has quit using tobacco Year quit tobacco: 2017 [id number] Second hand smoke exposure: No Smoking risk assessment/counseling performed?: Yes Alcohol intake: current Alcohol intake frequency: holidays/special occasions only Lives independently: Yes Household members: spouse Marital status: service: No Current occupational status: retired Pets and animals: Yes History of recent travel: No Current gender identity: Female Physical Exam Const: COMMON NORMALS: alert GENERAL APPEARANCE: cooperative, well developed, in distress (Mild, due to pain) and ill appearing (Chronically) HENMT: COMMON NORMALS: normocephalic and atraumatic HEAD & SCALP: normocephalic and atraumatic Eye: COMMON NORMALS: conjunctivae normal CONJUNCTIVA: Yes conjunctivae normal SCLERA: sclerae normal Neck/C-Spine: COMMON NORMALS: supple GENERAL: Yes trachea midline Resp: COMMON NORMALS: clear to auscultation bilaterally EFFORT & INSPECTION: Yes able to speak in complete sentences AUSCULTATION: clear to auscultation bilaterally Cardio: COMMON NORMALS: regular rate and regular rhythm RATE: regular rate RHYTHM: regular rhythm GI: COMMON NORMALS: Soft to palpation PALPATION: Yes Soft to palpation, Yes Tenderness to palpation present (GI), No Guarding due to palpation present (GI) and No Rigid due to palpation PERCUSSION: normal to percussion Extremity: GENERAL: Yes normal exam except as noted and No edema Neuro: COMMON NORMALS: moves all extremities SENSORIUM/ORIENTATION: Yes alert and No Orientation impaired Psych: COMMON NORMALS: mental status grossly normal and Normal thought process present THOUGHT PROCESS: Normal thought process present Course ED course: - Patient was seen and evaluated by me at bedside - Patient placed on cardiac monitors, IV access obtained - Initial evaluation notable for exam as above - Labs and xrays personally interpreted by me. EKG from 0031 personally interpreted by me. No STEMI. Sinus rhythm - Symptom treatment ordered. - Labs notable for minimal leukocytosis. Metabolic panel with mild evidence of dehydration. Patient able to tolerate p.o. intake after treatment. - Imaging notable for no clear pathology identified on CT chest abdomen pelvis to explain patient's symptoms. - Upon serial reexamination after treatment the patient was mildly improved - Based on patient history, evaluation, and testing as interpreted the most likely cause of the patient's condition is abdominal pain with nausea, vomiting, diarrhea of uncertain etiology. - I did discuss the case with the patient's primary oncologist Dr. Watts who recommended consideration of steroid prescription. Patient will have close clinic follow-up. - The results of ED evaluation were discussed with the patient including prescriptions and/or symptomatic cares (if applicable) including appropriate and responsible use, followup plan, and return precautions. The patient verbalized understanding and felt safe for discharge. - Patient discharged in satisfactory condition. Note: Click bubbles or prepopulated spears in note writing are used for assistance with data collection and billing and are inherently more limited than narrative and other text portions of this note. Please use narrative for additional clinical history and defer to narrative/free test for any case of contradictory information. If information appears in only free text or click bubble it should be considered present or absent as reported. Please contact note technical proposal writer for clarifications of clinical information or contradictory information. MDM is a brief summary, contradictory or erroneous seeming information should be clarified and full note should be reviewed. Vital Signs: Vital signs: Vital Signs Temperature 98.9 F 03/02/22 21:52 Pulse Rate 92 03/03/22 00:44 Respiratory Rate 30 H 03/03/22 00:44 Blood Pressure 167/86 03/03/22 00:44 Pulse Oximetry 91 03/03/22 00:44 MDM - Abdominal Pain Medical Decision Making 72-year-old lady with complex past medical history presenting with nausea, vomiting, diarrhea and uncontrolled pain at home. Challenging situation given high degree of comorbidities. Labs only demonstrate mild dehydration and minimal leukocytosis. No clear evidence of infection or other acute pathology identified on CT imaging. Patient has multiple medications including analgesia at home and though symptoms are not ideally controlled I am unsure what I could add at this point. I did discuss the case with Dr. aWtts of the oncology service, plan for short steroid taper and close outpatient follow-up. Satisfactory for discharge. Medical Records I reviewed the patient's medical records. Lab Data I reviewed the patient's lab results. : 03/02/22 22:20 03/02/22 22:20 Labs/Radiology: Radiology Impressions Chest/Abdomen/Pelvis CT 03/02/22 23:43 IMPRESSION: 1. Moderate centrilobular emphysema. 2. Interval partial re-expansion of the left upper lobe with some residual atelectasis and or scarring with mild bronchiectasis. 3. No pulmonary embolus or aortic dissection. IMPRESSION: No acute findings. Laboratory Results WBC 11.6 10^3/uL (4.0-10.0) H 03/02/22: RBC 4.64 10^6/uL (4.1-5.3) 03/02/22:20 Hgb 12.3 g/dL (11.5-15.3) 03/02/22: Hct 38.4 % (37.0-47.0) 03/02/22: MCV 82.8 fl (81-99) 03/02/22: MCH 26.5 pg (28.0-34.0) L 03/02/22: MCHC 32.0 g/dL (30.0-36.0) 03/02/22: RDW 18.4 % (12.1-15.1) H 03/02/22:20 Plt Count 514 10^3/cmm (130-400) H 03/02/22: MPV 9.2 fL (7.4-10.4) 03/02/22: Neut % (Auto) 79.1 % 03/02/22 22: Lymph % (Auto) 17.5 % 03/02/22: [place] % (Auto) 2.9 % 03/02/22: Eos % (Auto) 0.0 % 03/02/22: Baso % (Auto) 0.2 % 03/02/22: Neut # (Auto) 9.15 10^3/uL (1.8-7.7) H 03/02/22: Lymph # (Auto) 2.0 10^3/uL (0.8-4.8) 03/02/22: [place] # (Auto) 0.3 10^3/uL (0.2-0.9) 03/02/22: Eos # (Auto) 0.0 10^3/uL (0.0-0.8) 03/02/22: Baso # (Auto) 0.0 10^3/uL (0.0-0.1) 03/02/22: Nucleated RBC % (auto) 0 % 04/13/22 22:20 Nucleated RBCs # 0.0 /100WBC 03/02/22 22:20 Sodium 140 mmol/L (136-145) 03/02/22 22:20 Potassium 3.7 mmol/L (3.5-5.1) 03/02/22 22:20 Chloride 105 mmol/L (98-107) 03/02/22 22:20 Carbon Dioxide 19 mmol/L (22-29) L 03/02/22 22:20 Anion Gap 19.7 (5-19) H 03/02/22 22:20 BUN 14 mg/dL (8-23) 03/02/22 22:20 Creatinine 0.8 mg/dL (0.5-0.9) 03/02/22 22:20 GFR Calculation 70.9 mL/min (90-130) L 03/02/22 22:20 Glucose 171 mg/dL (65-115) H 03/02/22 22:20 Calculated Osmolality 295 mOsm/kg (285-295) 03/02/22 22:20 Calcium 10.0 mg/dL (8.5-10.5) 03/02/22 22:20 Total Bilirubin 0.3 mg/dL (0.15-1.2) 03/02/22 22:20 AST 17 U/L (0-32) 03/02/22 22:20 ALT 10 U/L (0-33) 03/02/22 22:20 Alkaline Phosphatase 107 IU/L (35-105) H 03/02/22 22:20 Troponin T Baseline 11 ng/L (0-10) H 03/02/22 22:20 Troponin T 120 Minute 10.02 ng/L (0-10) H 03/03/22 00:10 Delta Troponin T -0.98 ABS# (0-10) L 03/03/22 00:10 Total Protein 7.3 g/dL (6.6-8.7) 03/02/22 22:20 Albumin 4.6 g/dL (3.5-5.2) 03/02/22 22:20 Globulin 2.7 g/dL (1.3-4.6) 03/02/22 22:20 Lipase 27 U/L (13-60) 03/02/22 22:20 Urine Color Yellow (Yellow) 03/02/22 23:36 Urine Appearance Clear (CLEAR) 03/02/22 23:36 Urine pH 8 (5-7) H 03/02/22 23:36 Ur Specific [place] 1.010 (1.005-1.030) 03/02/22 23:36 Urine Protein 1+ (Negative) H 03/02/22 23:36 Urine Glucose (UA) Norm (Normal) 03/02/22 23:36 Urine Ketones 1+ (Negative) H 03/02/22 23:36 Urine Blood 2+ (Negative) H 03/02/22 23:36 Urine Nitrate Negative (Negative) 03/02/22 23:36 Urine Bilirubin Neg (Negative) 03/02/22 23:36 Prot Sulfosalicylic Acd Positive (Negative) 03/02/22 23:36 Urine Urobilinogen Norm mg/dL (Negative) 03/02/22 23:36 Ur Leukocyte Esterase Negative (Negative) 03/02/22 23:36 Urine RBC 0-4 /hpf (0-2) H 03/02/22 23:36 Urine WBC 0-4 /hpf (0-5) H 03/02/22 23:36 Ur Squamous Epith Cells 5-10 /hpf (0-5) H 03/02/22 23:36 Amorphous Sediment Not Reportable 03/02/22 23:36 Urine Bacteria 1+ /hpf (NONE) H 03/02/22 23:36 Discharge Plan Discharge Patient Disposition: Home Clinical Impression: Nausea, vomiting, and diarrhea Condition: Stable Prescriptions: New prednisone 10 mg tablet See Rx Instructions .ROUTE .COMPLEX Qty: 18 0RF Rx Instructions: 20 mg orally twice daily for 3 days then 10 mg orally twice daily for 3 days No Action lisinopril 10 mg tablet 10 mg PO DAILY@20 0RF Hold Instructions: Resume on 01/06/20. Follow-up with primary care provider to discuss need to continue this medication polyethylene glycol 3350 [Miralax] 17 gram powder in packet 17 gm PO DAILY@08 0RF atorvastatin 40 mg tablet 40 mg PO DAILY 0RF benzonatate 100 mg capsule 100 mg PO BID PRN0RF Trelegy Ellipta 100-62.5-25 mcg blister with device 1 inh inhalation DAILY 0RF topiramate [Topamax] 100 mg tablet 100 mg PO DAILY Qty: 30 6RF Rx Instructions: Take 1/2 tablet daily sumatriptan succinate 100 mg tablet 100 mg PO BID PRN (Reason: Migraine Headache) Qty: 9 6RF Rx Instructions: WAIT AT LEAST 2 HOURS BETWEEN DOSES mv,Ca,ir,Zm-FS-oii-gel-patty-PAB 3-133 mg-mcg Capsule 2 cap PO DAILY 0RF Benefiber Healthy Shape 5 gram/7.4 gram Powder See Rx Instructions .ROUTE .COMPLEX 0RF Rx Instructions: 1 TSP PO QAM Probiotic 2 tab PO QAM 0RF clopidogrel 75 mg tablet 75 mg PO DAILY@20 0RF Hold Instructions: Doctor's Order pantoprazole [Protonix] 40 mg tablet,delayed release (DR/EC) 40 mg PO BID 0RF atenolol 50 mg tablet 50 mg PO DAILY@20 0RF dicyclomine 20 mg tablet 20 mg PO QID PRN (Reason: Abdominal Discomfort) 0RF Discharge Orders: Discharge ED (Routine); Ordered 03/03/22 Ordered By: Louie Adhikari Referrals: Maria Gomez APN [Primary Care Provider] - Discharge Diet: Advance as tolerated and Clear Liquid Discharge Activity: Increase activity as tolerated Patient Instructions: Acute Nausea and Vomiting (ED), Acute Diarrhea (ED), Abdominal Pain (ED), Opioid Safety Activity Restrictions/Additional Instructions: Thank you for visiting the emergency department. You were seen and evaluated for nausea, vomiting, diarrhea. The exact cause of your symptoms is unclear. In discussion with Dr. Watts you will be initiated on steroids for the next few days. Please follow-up with Dr. Watts. You likely need additional imaging in the outpatient setting. Please return to the emergency department for worsening symptoms or anything else that you are concerned about and feel needs emergency department evaluation. Coding Level of Care Code ED Telehealth Nurse for Judy Mcgrath
--- NOTE | 2022-03-02 23:36 | ECG_ITS ---
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 Measurements Intervals [place] Rate: 72 P: 75 CO: 167 QRS: 77 QRSD: 85 T: 76 QT: 455 QTc: 501 Interpretive Statements SINUS RHYTHM PROLONGED QT INTERVAL Compared to ECG 04/21/2021 16:01:14 Prolonged QT interval now present Electronically Signed On 03-03-2022 18:10:52 CDT by Salvatore Jones M.D. [email or web address]
[2022-03-02 23:43] VITALS: BP 167/81; PULSE 75; O2SAT 98
--- NOTE | 2022-03-02 23:43 | CTR_ITS ---
PROCEDURE INFORMATION: Exam: CTA Chest With Contrast Exam date and time: 03/03/2022 12:08 AM Age: 72 years old Clinical indication: Nausea and vomiting; Abdominal pain; Generalized; Shortness of breath; Chest pressure; Prior surgery; Surgery type: Chest port. Splenectomy. Csection. ; Patient HX: C/O chest discomfort with SOB. Diffuse abd pain with n/v. History of lung cancer. ; Additional info: SOB, back pain, abd pain, n/v/d TECHNIQUE: Imaging protocol: Computed tomographic angiography of the chest with contrast. 3D rendering (Not supervised by radiologist): MIP and/or 3D reconstructed images were created by the technologist. Radiation optimization: All CT scans at this facility use at least one of these dose optimization techniques: automated exposure control; mA and/or kV adjustment per patient size (includes targeted exams where dose is matched to clinical indication); or iterative reconstruction. Contrast material: OMNI 350; Contrast volume: 95 ml; Contrast route: INTRAVENOUS (IV); COMPARISON: 1. CT angio chest PE protcl [id number] 04/20/2021 7:[address] abdomen pelvis wo/w [id number] 02/14/2022 2:05 PM RADIATION DOSE METRICS: Total DLP (mGy-cm): 1278.1 FINDINGS: Pulmonary arteries: No pulmonary embolus or aortic dissection. Aorta: Calcification of the thoracic aorta and/or great vessels consistent with atherosclerotic vessel disease. Lungs: Moderate centrilobular emphysema. Interval partial re-expansion of the left upper lobe with some residual atelectasis and or scarring with mild bronchiectasis. Pleural spaces: Unremarkable. No pneumothorax. No pleural effusion. Heart: Unremarkable. No cardiomegaly. No pericardial effusion. Lymph nodes: Unremarkable. No enlarged lymph nodes. Bones/joints: Unremarkable. No acute fracture. Soft tissues: Unremarkable. PROCEDURE INFORMATION: Exam: CT Abdomen And Pelvis With Contrast Exam date and time: 03/03/2022 12:08 AM Age: 72 years old Clinical indication: Nausea and vomiting; Abdominal pain; Generalized; Shortness of breath; Chest pressure; Prior surgery; Surgery type: Chest port. Splenectomy. Csection. ; Patient HX: C/O chest discomfort with SOB. Diffuse abd pain with n/v. History of lung cancer. ; Additional info: SOB, back pain, abd pain, n/v/d TECHNIQUE: Imaging protocol: Computed tomography of the abdomen and pelvis with contrast. Radiation optimization: All CT scans at this facility use at least one of these dose optimization techniques: automated exposure control; mA and/or kV adjustment per patient size (includes targeted exams where dose is matched to clinical indication); or iterative reconstruction. Contrast material: OMNI 350; Contrast volume: 95 ml; Contrast route: INTRAVENOUS (IV); COMPARISON: 1. CT angio chest PE protcl [id number] 04/20/2021 7:[address] abdomen pelvis wo/w [id number] 02/14/2022 2:05 PM RADIATION DOSE METRICS: Total DLP (mGy-cm): 1278.1 FINDINGS: Liver: Normal. No mass. Gallbladder and bile ducts: Normal. No calcified stones. No ductal dilation. Pancreas: Normal. No ductal dilation. Spleen: Normal. No splenomegaly. Adrenal glands: Normal. No mass. Kidneys and ureters: Normal. No hydronephrosis. Stomach and bowel: Mild colonic diverticulosis. Appendix: Normal appendix. Intraperitoneal space: Unremarkable. No free air. No significant fluid collection. Arteries: Calcification of the abdominal aorta and/or iliac arteries consistent with atherosclerotic vessel disease. Veins: One or more calcified pelvic phleboliths. Lymph nodes: Unremarkable. No enlarged lymph nodes. Urinary bladder: Unremarkable as visualized. Reproductive: Unremarkable as visualized. Bones/joints: Severe multilevel spine degenerative changes including degenerative disc disease, spondylosis and facet degenerative changes. Soft tissues: Unremarkable. CT/CT angio chest w abd pel w con IMPRESSION: 1. Moderate centrilobular emphysema. 2. Interval partial re-expansion of the left upper lobe with some residual atelectasis and or scarring with mild bronchiectasis. 3. No pulmonary embolus or aortic dissection. IMPRESSION: No acute findings.
[2022-03-02 23:51] LABS: Add Urine Culture? Yes; Bacteria Urine 1+ /hpf; Bilirubin Urine Neg (Negative); Blood Urine 2+ (Negative); Glucose Urine UA Norm (Normal); Ketones Urine 1+ (Negative); Leukocyte Esterase Urine Negative (Negative); Nitrate Urine Negative (Negative); Protein Urine 1+ (Negative); RBC Urine 0-4 /hpf (0-2); Sulfosalicylic Acid Urine Positive (Negative); Urine Appearance Clear (CLEAR); Urine Color Yellow (Yellow); Urobilinogen Urine Norm (Negative); WBC Urine 0-4 /hpf (0-5); pH Urine 8 (5-7)
[2022-03-02] MEDS: iohexol 350 mg/mL 100 mL Btl IV (23:52)
[2022-03-02 23:56] LABS: Add Urine Microscopic? YES
[2022-03-02 23:58] LABS: Troponin(5th) Baseline 11 ng/L (0-10)
[2022-03-03] MEDS: fentaNYL 50 mcg/mL INJ 2mL IVP
[2022-03-03] MEDS: morphine 4 mg/mL SDV 1 mL IVP (00:26)
[2022-03-03 00:38] LABS: Troponin 5 2HR 10.02 ng/L (0-10)
[2022-03-03 00:42] LABS: Troponin 5 2HR Delta -0.98 ABS# (0-10)
[2022-03-03 00:44] VITALS: BP 167/86; PULSE 92; RESP 30; O2SAT 91
[2022-03-03 04:00] VITALS: BP 149/71; PULSE 74; RESP 22; O2SAT 100
[2022-03-03 04:35] VITALS: RESP 30; O2SAT 98
[2022-03-03] MEDS: ondansetron 2 mg/ML SDV 2 mL 4 MG IVP ×2 (04:35)
[2022-03-03] MEDS: morphine 4 mg/mL SDV 1 mL 2 MG IVP (04:35)
[2022-03-03] MEDS: lactated ringers 1,000 ML 999 ML IV (04:55)
[2022-03-03] MEDS: metoclopramide 5 mg/mL SDV 2 mL 10 MG IVP (04:55)
[2022-03-03 07:30] VITALS: BP 117/70; PULSE 70; O2SAT 94
[2022-03-03] MEDS: dicyclomine 10 mg Capsule PO (08:00)
--- NOTE | 2022-03-03 08:08 | PC.NURSE ---
barcode half gone on dicyclomine pill, unscanable
--- NOTE | 2022-03-03 15:09 | PC.NURSE ---
PC FROM [facility] TO CLARIFY DOSE AND SCHEDULE OF PREDNISONE PERSCRIPTION. PER DR. BEATRIZ ONTIVEROS WITH READ BACK INFORMED PHARMACIST THAT PREDNISONE ADM 10MG PO TID FOR THREE DAYS, 10 MG PO PREDNISONE BID FOR THREE DAYS, AND 10MG PO DAILY FOR THREE DAYS.
== END 2022-03-03 08:03 | disposition home or self-care (01) ==
PROVIDERS: Nurse Practitioner Family; Emergency Provider Emergency Medicine; PCP Nurse Practitioner Family
DX: R11.2 Nausea with vomiting, unspecified (principal); R19.7 Diarrhea, unspecified; I10 Essential (primary) hypertension; E78.5 Hyperlipidemia, unspecified; Z85.118 Personal history of other malignant neoplasm of bronchus and lung; Z87.891 Personal history of nicotine dependence; E86.0 Dehydration; J43.9 Emphysema, unspecified; Z79.02 Long term (current) use of antithrombotics/antiplatelets
CPT/HCPCS: 71275; 74177; 80053; 81001; 83690; 84484; 85025; 87086; 93005; 96361; 96374; 96375; 96376; 99284; J2270; J2405; J2765; J3010; Q9967

== ENCOUNTER 2022-03-09 09:30 | Outpatient (CLI) | payer MEDICARE, SELFPAY ==
[2022-03-09 10:15] LABS: Basophils % 0.1 %; Eosinophils # 0.1 10^3/uL (0.0-0.8); Eosinophils % 0.4 %; Hematocrit 35.9 % (37.0-47.0); Hemoglobin 11.1 g/dL (11.5-15.3); Lymphocytes # 1.9 10^3/uL (0.8-4.8); Lymphocytes % 13.8 %; Mean Corpuscular HGB Conc 30.9 g/dL (30.0-36.0); Mean Corpuscular Hemoglobin 26.6 pg (28.0-34.0); Mean Corpuscular Volume 86.1 fl (81-99); Mean Platelet Volume 9.7 fL (7.4-10.4); Monocytes % 7.1 %; Neutrophils # 10.92 10^3/uL (1.8-7.7); Neutrophils % 77.8 %; Nucleated Red Blood Cells % 0 %; Platelet Count 456 10^3/cmm (130-400); Red Blood Count 4.17 10^6/uL (4.1-5.3); Red Cell Distribution Width 18.9 % (12.1-15.1)
[2022-03-09 11:01] LABS: Alanine Aminotransferase 11 U/L (0-33); Albumin Level 3.6 g/dL (3.5-5.2); Alkaline Phosphatase 91 IU/L (35-105); Anion Gap 15.8 (5-19); Aspartate Amino Transferase 11 U/L (0-32); Blood Urea Nitrogen 22 mg/dL (8-23); Calcium 9.2 mg/dL (8.5-10.5); Carbon Dioxide 23 mmol/L (22-29); Chloride 108 mmol/L (98-107); Globulin 2.4 g/dL (1.3-4.6); Glomerular Filtration Rate 61.9 mL/min (90-130); Glucose 113 mg/dL (65-115); Osmolality Calculated 300 mOsm/kg (285-295); Potassium 3.8 mmol/L (3.5-5.1); Sodium 143 mmol/L (136-145); Thyroid Stimulating Hormone 0.11 uIU/mL (0.27-4.20); Total Bilirubin 0.2 mg/dL (0.15-1.2)
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
== END 2022-03-09 09:31 | disposition home or self-care (01) ==
PROVIDERS: PCP Nurse Practitioner Family; Visit Provider Nurse Practitioner Family
DX: C34.12 Malignant neoplasm of upper lobe, left bronchus or lung (principal); Z87.891 Personal history of nicotine dependence; J98.11 Atelectasis; J44.9 Chronic obstructive pulmonary disease, unspecified; D64.9 Anemia, unspecified; E05.90 Thyrotoxicosis, unspecified without thyrotoxic crisis or storm
CPT/HCPCS: 80053; 84443; 85025; 96413; 99215; J7050; J9173

== ENCOUNTER 2022-03-30 11:47 | Outpatient (CLI) | payer MEDICARE, SELFPAY ==
--- NOTE | 2022-03-30 12:09 | MR_ITS ---
WS: [id number] MRI LUMBAR SPINE WITH CONTRAST TECHNIQUE: Sagittal T1, T2 and STIR imaging. Axial T1 and T2 imaging. Post gadolinium imaging was obt ained. CLINICAL INFORMATION: LUNG CANCER COMPARISON: None. FINDINGS: Mild lumbar curve. No acute compression. Slight retrolisthesis L2 on L3 and L3 on L4. Degenerative en dplate edema at L2-L3 with associated enhancement likely inflammatory. Paravertebral enhancement like ly inflammatory. Endplate sclerosis at the L2-L3 level with disc desiccation. Endplate sclerosis with disc desiccation at this level visualized on multiple prior CTs dating back to 2019. Lumbar curve co nvex RIGHT. L1-L2: Mild disc bulging with slight effacement of ventral thecal sac. Mild facet arthropathy. Spinal canal and foramen are patent. L2-L3: Slight retrolisthesis. Disc osteophyte complex with endplate ridging. Moderate LEFT and mild R IGHT foraminal narrowing. Mild central canal stenosis. Mild facet arthropathy. L3-L4: Disc osteophyte complex with endplate ridging. Impingement on the LEFT subarticular recess and traversing LEFT L4 nerve root. Moderate central canal stenosis. Moderate LEFT and mild RIGHT foramin al narrowing. L4-L5: Mild disc bulging with osteophytic ridging. Severe central canal stenosis and impingement alex ersing L5 nerve roots bilaterally RIGHT greater than LEFT. Moderate facet arthropathy. Ligamentum fla vum hypertrophy. Moderate RIGHT foraminal narrowing. LEFT foramen is patent. L5-S1: RIGHT eccentric disc osteophyte ridging impinges the exiting RIGHT L5 nerve root laterally. In addition impingement on the traversing RIGHT S1 nerve root in the subarticular recess. Moderate face t arthropathy. LEFT foramen is patent. RIGHT lower pole renal cyst. No evidence of enhancing metastatic disease. MR/MR lumbar spine wo/w con [id number] IMPRESSION: 1. Mild lumbar curve. 2. Severe central canal stenosis L4-L5 due to disc bulging with facet arthropa thy ligamentum flavum hypertrophy. Impingement traversing RIGHT L5 nerve root. Moderate RIGHT foraminal narrowing impinges the exiting RIGHT L4 nerve root. 3. Moderate central canal stenosis L2-L3. Mild central canal stenosis L3-L4. 4. Edema involving the adjacent endplates at L2-L3 with endplate sclerosis. As sociated Paravertebral enhancement likely inflammatory. Findings are likely deg enerative but Recommend correlation for infection to exclude discitis although less likely. 5. No evidence of enhancing metastatic disease.
[2022-03-30] MEDS: gadobenate dimeglumine 20 mL vial IV (13:23)
== END 2022-03-30 11:48 | disposition home or self-care (01) ==
PROVIDERS: PCP Nurse Practitioner Family; Visit Provider Internal Medicine Medical Oncology
DX: C34.90 Malignant neoplasm of unspecified part of unspecified bronchus or lung (principal)
CPT/HCPCS: 72158

== ENCOUNTER 2022-04-06 11:35 | Oncology outpatient (recurring) (ONCR) | payer MEDICARE, SELFPAY ==
[2022-04-06 12:19] LABS: Basophils # 0.1 10^3/uL (0.0-0.1); Basophils % 1.2 %; Eosinophils # 0.3 10^3/uL (0.0-0.8); Eosinophils % 3.5 %; Hematocrit 36.6 % (37.0-47.0); Hemoglobin 11.3 g/dL (11.5-15.3); Lymphocytes # 2.6 10^3/uL (0.8-4.8); Mean Corpuscular HGB Conc 30.9 g/dL (30.0-36.0); Mean Corpuscular Hemoglobin 26.4 pg (28.0-34.0); Mean Corpuscular Volume 85.5 fl (81-99); Mean Platelet Volume 8.7 fL (7.4-10.4); Monocytes # 0.5 10^3/uL (0.2-0.9); Monocytes % 6.2 %; Neutrophils # 5.12 10^3/uL (1.8-7.7); Neutrophils % 58.9 %; Nucleated Red Blood Cells % 0 %; Platelet Count 511 10^3/cmm (130-400); Red Blood Count 4.28 10^6/uL (4.1-5.3); Red Cell Distribution Width 18.3 % (12.1-15.1); White Blood Count 8.7 10^3/uL (4.0-10.0)
[2022-04-06 12:38] LABS: Alanine Aminotransferase < 5 U/L (0-33); Albumin Level 3.7 g/dL (3.5-5.2); Alkaline Phosphatase 104 IU/L (35-105); Anion Gap 13.8 (5-19); Aspartate Amino Transferase 10 U/L (0-32); Blood Urea Nitrogen 8 mg/dL (8-23); Calcium 8.4 mg/dL (8.5-10.5); Carbon Dioxide 22 mmol/L (22-29); Chloride 106 mmol/L (98-107); Globulin 2.4 g/dL (1.3-4.6); Glomerular Filtration Rate 70.9 mL/min (90-130); Glucose 100 mg/dL (65-115); Osmolality Calculated 284 mOsm/kg (285-295); Potassium 3.8 mmol/L (3.5-5.1); Sodium 138 mmol/L (136-145); Total Bilirubin 0.2 mg/dL (0.15-1.2); Total Protein 6.1 g/dL (6.6-8.7)
== END 2022-04-19 23:59 | disposition home or self-care (01) ==
PROVIDERS: Nurse Practitioner Family; PCP Nurse Practitioner Family; Visit Provider Internal Medicine Medical Oncology
DX: C34.12 Malignant neoplasm of upper lobe, left bronchus or lung (principal); J98.11 Atelectasis; R53.82 Chronic fatigue, unspecified; L65.8 Other specified nonscarring hair loss; D70.1 Agranulocytosis secondary to cancer chemotherapy; G62.0 Drug-induced polyneuropathy; T45.1X5A Adverse effect of antineoplastic and immunosuppressive drugs, initial encounter; M51.37 Other intervertebral disc degeneration, lumbosacral region; M48.07 Spinal stenosis, lumbosacral region; E05.90 Thyrotoxicosis, unspecified without thyrotoxic crisis or storm; Z79.899 Other long term (current) drug therapy; Z79.891 Long term (current) use of opiate analgesic
CPT/HCPCS: 36591; 80053; 85025; 99214; 99999

== ENCOUNTER → 2022-04-19 14:31 | Outpatient (BNVA) | payer MEDICARE, SELFPAY | PROVIDERS: PCP Nurse Practitioner Family; Referring Provider Internal Medicine Medical Oncology; Visit Provider Orthopaedic Surgery | DX: M48.062 Spinal stenosis, lumbar region with neurogenic claudication (principal); M41.86 Other forms of scoliosis, lumbar region; M47.816 Spondylosis without myelopathy or radiculopathy, lumbar region; M47.896 Other spondylosis, lumbar region | CPT/HCPCS: 72120; 99204 ==

== ENCOUNTER → 2022-05-05 08:49 | Outpatient (BNVA) | payer MEDICARE, SELFPAY | PROVIDERS: PCP Nurse Practitioner Family; Visit Provider Anesthesiology Pain Medicine | DX: M47.816 Spondylosis without myelopathy or radiculopathy, lumbar region (principal); M51.16 Intervertebral disc disorders with radiculopathy, lumbar region; M48.062 Spinal stenosis, lumbar region with neurogenic claudication; C34.12 Malignant neoplasm of upper lobe, left bronchus or lung; M79.604 Pain in right leg; M79.605 Pain in left leg; Z87.891 Personal history of nicotine dependence; F12.10 Cannabis abuse, uncomplicated; Z79.891 Long term (current) use of opiate analgesic | CPT/HCPCS: 99205 ==

== ENCOUNTER 2022-05-19 11:44 | Oncology outpatient (recurring) (ONCR) | payer MEDICARE, SELFPAY ==
[2022-05-19 12:29] LABS: Basophils # 0.1 10^3/uL (0.0-0.1); Basophils % 1.1 %; Eosinophils # 0.4 10^3/uL (0.0-0.8); Eosinophils % 5.9 %; Hematocrit 34.8 % (37.0-47.0); Lymphocytes # 2.8 10^3/uL (0.8-4.8); Lymphocytes % 37.7 %; Mean Corpuscular HGB Conc 31.6 g/dL (30.0-36.0); Mean Corpuscular Hemoglobin 26.2 pg (28.0-34.0); Mean Corpuscular Volume 82.9 fl (81-99); Mean Platelet Volume 9.2 fL (7.4-10.4); Monocytes # 0.8 10^3/uL (0.2-0.9); Monocytes % 10.9 %; Neutrophils # 3.29 10^3/uL (1.8-7.7); Neutrophils % 44.1 %; Nucleated Red Blood Cells % 0 %; Platelet Count 454 10^3/cmm (130-400); Red Cell Distribution Width 18.4 % (12.1-15.1); White Blood Count 7.5 10^3/uL (4.0-10.0)
[2022-05-19 12:59] LABS: Alanine Aminotransferase 9 U/L (0-33); Albumin Level 3.7 g/dL (3.5-5.2); Alkaline Phosphatase 96 IU/L (35-105); Aspartate Amino Transferase 13 U/L (0-32); Blood Urea Nitrogen 13 mg/dL (8-23); Calcium 8.9 mg/dL (8.5-10.5); Carbon Dioxide 24 mmol/L (22-29); Chloride 105 mmol/L (98-107); Free T4 Free Thyroxine 0.83 ng/dL (0.82-1.77); Globulin 2.6 g/dL (1.3-4.6); Glomerular Filtration Rate 61.9 mL/min (90-130); Glucose 96 mg/dL (65-115); Osmolality Calculated 286 mOsm/kg (285-295); Sodium 138 mmol/L (136-145); Thyroid Stimulating Hormone 1.54 uIU/mL (0.27-4.20); Total Bilirubin 0.2 mg/dL (0.15-1.2); Total Protein 6.3 g/dL (6.6-8.7)
== END 2022-05-19 23:59 | disposition home or self-care (01) ==
PROVIDERS: PCP Nurse Practitioner Family; Visit Provider Internal Medicine Medical Oncology
DX: C34.12 Malignant neoplasm of upper lobe, left bronchus or lung (principal); Z87.891 Personal history of nicotine dependence; M48.061 Spinal stenosis, lumbar region without neurogenic claudication
CPT/HCPCS: 36591; 80053; 84439; 84443; 85025; 99214

== ENCOUNTER → 2022-06-08 14:15 | Outpatient (BNVA) | payer MEDICARE, SELFPAY | PROVIDERS: PCP Nurse Practitioner Family; Visit Provider Anesthesiology Pain Medicine | DX: M48.062 Spinal stenosis, lumbar region with neurogenic claudication (principal); Z87.891 Personal history of nicotine dependence; Z79.891 Long term (current) use of opiate analgesic; M47.816 Spondylosis without myelopathy or radiculopathy, lumbar region | CPT/HCPCS: 64493; 64494; 64495; J3490 ==

== ENCOUNTER 2022-07-13 14:30 | Oncology outpatient (recurring) (ONCR) | payer MEDICARE, SELFPAY ==
[2022-06-22 12:23] LABS: Basophils # 0.1 10^3/uL (0.0-0.1); Basophils % 1.2 %; Eosinophils # 0.4 10^3/uL (0.0-0.8); Eosinophils % 4.1 %; Hematocrit 38.5 % (37.0-47.0); Lymphocytes # 3.3 10^3/uL (0.8-4.8); Mean Corpuscular HGB Conc 31.2 g/dL (30.0-36.0); Mean Corpuscular Hemoglobin 26.3 pg (28.0-34.0); Mean Corpuscular Volume 84.4 fl (81-99); Monocytes # 0.7 10^3/uL (0.2-0.9); Neutrophils # 4.97 10^3/uL (1.8-7.7); Neutrophils % 52.4 %; Nucleated Red Blood Cells % 0 %; Platelet Count 484 10^3/cmm (130-400); Red Blood Count 4.56 10^6/uL (4.1-5.3); Red Cell Distribution Width 20.5 % (12.1-15.1); White Blood Count 9.5 10^3/uL (4.0-10.0)
[2022-06-22 12:43] LABS: Alanine Aminotransferase < 5 U/L (0-33); Albumin Level 3.8 g/dL (3.5-5.2); Alkaline Phosphatase 103 IU/L (35-105); Anion Gap 15.7 (5-19); Aspartate Amino Transferase 11 U/L (0-32); Blood Urea Nitrogen 10 mg/dL (8-23); Carbon Dioxide 22 mmol/L (22-29); Chloride 107 mmol/L (98-107); Globulin 2.7 g/dL (1.3-4.6); Glomerular Filtration Rate 70.9 mL/min (90-130); Glucose 115 mg/dL (65-115); Osmolality Calculated 292 mOsm/kg (285-295); Potassium 3.7 mmol/L (3.5-5.1); Sodium 141 mmol/L (136-145); Total Bilirubin 0.3 mg/dL (0.15-1.2); Total Protein 6.5 g/dL (6.6-8.7)
== END 2022-07-20 23:59 | disposition home or self-care (01) ==
LOC: ONCMED 07-21 07:04
PROVIDERS: Nurse Practitioner Family; PCP Nurse Practitioner Family; Visit Provider Internal Medicine Medical Oncology
DX: Z53.9 Procedure and treatment not carried out, unspecified reason (principal); C34.12 Malignant neoplasm of upper lobe, left bronchus or lung
CPT/HCPCS: 36591; 80053; 85025; 99214

== ENCOUNTER 2022-08-08 09:04 | Oncology outpatient (recurring) (ONCR) | payer MEDICARE, SELFPAY ==
--- NOTE | 2022-08-08 09:16 | CT_ITS ---
WS: [id number] CT CHEST, ABDOMEN, AND PELVIS TECHNIQUE: Contrast-enhanced CT of the chest, abdomen, and pelvis with coronal and sagittal reformatt ed images. CLINICAL INFORMATION: restaging COMPARISON: CT 03/03/2022 and 02/14/2022 DLP: 1414.[address] scans at [facility] use at least one of these dose optimization techniques: automated e xposure control; mA and/or kV adjustment per patient size (includes targeted exams where dose is matc hed to clinical indication); or iterative reconstruction. CT CHEST: Postoperative changes about the left hilum are stable in appearance. Stable interstitial th ickening and fibrotic changes in the left hilum extending into the left upper lobe likely treatment-r elated. Stable LEFT bronchovascular thickening. No mediastinal or hilar lymphadenopathy today. No axi llary lymphadenopathy. Advanced chronic emphysematous changes. Aortic calcification. Normal caliber thoracic aorta. Proximal main pulmonary arteries are normal. CT ABDOMEN AND PELVIS: Mild diffuse fatty infiltration of the liver. Normal portal vein and splenic vein. Mild fluid distent ion gallbladder. Small esophageal hiatal hernia. Prior splenectomy. Adrenal glands are normal. Normal renal parenchymal enhancement. No hydronephrosis. Tiny RIGHT renal cyst. Fatty atrophy of the pancre as. Fluid distended gallbladder with gallbladder wall enhancement with small calculi or polyps. Recommend further evaluation with ultrasound. Normal caliber abdominal aorta. Mild aortic calcification. No pe riaortic lymphadenopathy. Small LEFT parasagittal fat-containing umbilical hernia. Supraumbilical fat -containing abdominal wall hernia with wide hernia mouth measuring 3.0 cm. No herniated bowel. This i s unchanged from previous. Normal sigmoid colon. A few diverticuli. No evidence of acute diverticulitis. Moderate spondylitic ch anges lumbar spine unchanged. CT/CT chest abd pel w con* IMPRESSION: 1. Postoperative changes left hilum with treatment-related changes extending i nto the left upper lobe similar to previous 2. No evidence of recurrent or progressive disease in the chest abdomen or pel vis. 3. Diffuse fatty infiltration liver. 4. Small esophageal hiatal hernia. 5. Fluid distended gallbladder with gallbladder wall enhancement with small ca lculi or polyps. Recommend further evaluation with ultrasound 6. No other significant changes compared to previous.
[2022-08-08] MEDS: iohexol 350 mg/mL 100 mL Btl IV (11:19)
== END 2022-08-19 23:59 | disposition home or self-care (01) ==
LOC: ONCMED 09:06 → RAD 08-10 10:23 → ONCMED 08-10 13:25
PROVIDERS: PCP Nurse Practitioner Family; Visit Provider Internal Medicine Medical Oncology
DX: C34.12 Malignant neoplasm of upper lobe, left bronchus or lung (principal)
CPT/HCPCS: 71260; 74177; 99213; 99214

== ENCOUNTER 2022-10-06 10:01 | Oncology outpatient (recurring) (ONCR) | payer MEDICARE, SELFPAY | END 2022-10-19 23:59 | disposition home or self-care (01) | PROVIDERS: PCP Nurse Practitioner Family; Visit Provider Internal Medicine Medical Oncology | DX: Z45.2 Encounter for adjustment and management of vascular access device (principal) | CPT/HCPCS: 96523 ==

== ENCOUNTER 2022-12-06 08:08 | Oncology outpatient (recurring) (ONCR) | payer MEDICARE, SELFPAY ==
[2022-12-06 08:37] LABS: Basophils # 0.1 10^3/uL (0.0-0.1); Basophils % 1.3 %; Eosinophils # 0.5 10^3/uL (0.0-0.8); Eosinophils % 5.8 %; Hematocrit 34.8 % (37.0-47.0); Hemoglobin 10.7 g/dL (11.5-15.3); Lymphocytes # 3.2 10^3/uL (0.8-4.8); Lymphocytes % 34.5 %; Mean Corpuscular HGB Conc 30.7 g/dL (30.0-36.0); Mean Corpuscular Hemoglobin 26.5 pg (28.0-34.0); Mean Corpuscular Volume 86.1 fl (81-99); Mean Platelet Volume 8.7 fL (7.4-10.4); Monocytes # 0.9 10^3/uL (0.2-0.9); Monocytes % 9.1 %; Neutrophils # 4.62 10^3/uL (1.8-7.7); Neutrophils % 49.1 %; Nucleated Red Blood Cells % 0 %; Platelet Count 461 10^3/cmm (130-400); Red Blood Count 4.04 10^6/uL (4.1-5.3); Red Cell Distribution Width 19.2 % (12.1-15.1); White Blood Count 9.4 10^3/uL (4.0-10.0)
[2022-12-06 09:03] LABS: Alanine Aminotransferase 6 U/L (0-33); Albumin Level 3.9 g/dL (3.5-5.2); Alkaline Phosphatase 94 U/L (35-105); Anion Gap 13.1 (5-19); Aspartate Amino Transferase 12 U/L (0-32); Blood Urea Nitrogen 12 mg/dL (8-23); Calcium 8.5 mg/dL (8.5-10.5); Carbon Dioxide 25 mmol/L (22-29); Chloride 105 mmol/L (98-107); Globulin 2.6 g/dL (1.3-4.6); Glomerular Filtration Rate 82.7 mL/min (90-130); Glucose 111 mg/dL (65-115); Osmolality Calculated 288 mOsm/kg (285-295); Potassium 4.1 mmol/L (3.5-5.1); Sodium 139 mmol/L (136-145); Total Bilirubin 0.2 mg/dL (0.15-1.2); Total Protein 6.5 g/dL (6.6-8.7)
== END 2022-12-20 23:59 | disposition home or self-care (01) ==
PROVIDERS: PCP Nurse Practitioner Family; Visit Provider Internal Medicine Medical Oncology
DX: Z08 Encounter for follow-up examination after completed treatment for malignant neoplasm (principal); Z85.118 Personal history of other malignant neoplasm of bronchus and lung; R49.0 Dysphonia; Z92.21 Personal history of antineoplastic chemotherapy; Z92.3 Personal history of irradiation; Z87.891 Personal history of nicotine dependence
CPT/HCPCS: 36591; 80053; 85025; 99213; 99214

== ENCOUNTER 2022-12-23 18:27 | Emergency (ER) | payer MEDICARE, SELFPAY ==
[2022-12-23] VITALS (7 sets, daily range): BP systolic 125–148; BP diastolic 73–88; PULSE 71–101; RESP 16–23; TEMP 36.6; O2SAT 91–100; BMI 25.9
--- NOTE | 2022-12-23 18:39 | ECG_ITS ---
[facility] Test Date: 2022-12-23 Pat Name: May Cummings Department: Room: Gender: Female Head Bone Grinder: : 1950 Requested By: Dia Self Order Number: [id number] Lev MD: Salvatore Jones M.D. Measurements Intervals [place] Rate: 56 P: 79 VA: 156 QRS: 74 QRSD: 83 T: 79 QT: 504 QTc: 489 Interpretive Statements SINUS BRADYCARDIA PROLONGED QT INTERVAL Compared to ECG 03/03/2022 00:31:38 Sinus rhythm no longer present Electronically Signed On 12-23-2022 23:24:47 SPOOL SORTER by Salvatore Jones M.D. [id number]
--- NOTE | 2022-12-23 18:48 | XRR_ITS ---
PROCEDURE INFORMATION: Exam: XR Chest Exam date and time: 12/23/2022 7:03 PM Age: 72 years old Clinical indication: Pain; Chest pressure; Additional info: Cp, HX of lung cancer TECHNIQUE: Imaging protocol: Radiologic exam of the chest. Views: 1 view. COMPARISON: CT chest fouziapel w/*[id number] 08/08/2022 11:02 AM FINDINGS: Tubes, catheters and devices: Right-sided Port-A-Cath. Lungs: Left upper lobe pleuroparenchymal fibrosis. Emphysematous changes. Pleural spaces: Unremarkable. No pleural effusion. No pneumothorax. Heart/Mediastinum: Unremarkable. No cardiomegaly. Bones/joints: Unremarkable. XR/XR chest 1V portable [id number] IMPRESSION: 1. Left upper lobe pleuroparenchymal fibrosis 2. Emphysematous changes.
[2022-12-23] MEDS: ondansetron 2 mg/ML SDV 2 mL 4 MG IVP (18:59)
[2022-12-23] MEDS: morphine 4 mg/mL SDV 1 mL IVP (18:59)
[2022-12-23 19:03] LABS: Basophils % 0.2 %; Hematocrit 38.9 % (37.0-47.0); Hemoglobin 12.5 g/dL (11.5-15.3); Lymphocytes # 4.6 10^3/uL (0.8-4.8); Lymphocytes % 31.2 %; Mean Corpuscular HGB Conc 32.1 g/dL (30.0-36.0); Mean Corpuscular Hemoglobin 26.2 pg (28.0-34.0); Mean Corpuscular Volume 81.4 fl (81-99); Mean Platelet Volume 9.2 fL (7.4-10.4); Monocytes # 1.2 10^3/uL (0.2-0.9); Monocytes % 8.5 %; Neutrophils # 8.74 10^3/uL (1.8-7.7); Neutrophils % 59.8 %; Nucleated Red Blood Cells % 0 %; Platelet Count 508 10^3/cmm (130-400); Red Blood Count 4.78 10^6/uL (4.1-5.3); Red Cell Distribution Width 18.2 % (12.1-15.1); White Blood Count 14.6 10^3/uL (4.0-10.0)
--- NOTE | 2022-12-23 19:13 | ED_ITS ---
HPI - Chest Pain General: Chief Complaint: Chest Pain Stated Complaint: CHEST PAIN Time Seen by Provider: 12/23/22 18:49 Source: patient Mode of arrival: ambulatory Limitations: no limitations History of Present Illness: 72-year-old female states she has been having sharp chest pain in the center of her chest over the last 2 days states it is worse with palpation she rates her pain a 3 out of 10 currently it was 8 out of 10 at worst it was improved with fentanyl she denies any vomiting diarrhea laura es any shortness of breath. Associated symptoms: Deny abdominal pain, dyspnea, fever(s), nausea or vomiting Review of Systems Const: Denies: fever(s), chills, body aches or change in appetite Eyes: Denies: blurry vision or eye discomfort ENMT: Denies: throat pain or dental pain Card: Reports: chest pain Resp: Denies: dyspnea GI: Denies: abdominal pain, nausea, vomiting or diarrhea : Denies: dysuria Musc: Denies: neck pain or back pain Skin/Breast: Denies: rash Neuro: Denies: headache(s) Psych: Denies: depression Ike/Lymph: Denies: easy bruising All/Imm: Denies: urticaria PFSH ED PFSH: Medical History Anxiety disorder Basilar artery aneurysm Chronic migraine COPD (chronic obstructive pulmonary disease) Degenerative joint disease of spine Dyslipidemia Gastritis Hypertension Continue on atenolol, hold lisinopril until seen by primary care provider Hyperthyroidism Continue on home methimazole Insomnia Lumbar spinal stenosis Non-small cell lung cancer Plantar fasciitis Statin intolerance Surgical History H/O section H/O splenectomy 2007 History of esophagogastroduodenoscopy (EGD) 2019 -gastritis S/P coil embolization of cerebral aneurysm 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, stent subsequently removed Status post colonoscopy 2018: Normal repeat in 10 years Family History Mother Diabetes Father Heart disease Grandmother Stroke Other Suicide Denies family history of CAD (coronary artery disease) Clotting disorder Dementia Hyperlipidemia Psychiatric illness Chronic kidney disease (CKD) Anesthesia complication Bleeding disorder Lung disease Cancer Hypertension Social History Smoking and tobacco status: former smoker Quit status (tobacco): has quit using tobacco Year quit tobacco: 2017 [id number] Second hand smoke exposure: No Smoking risk assessment/counseling performed?: Yes Alcohol intake: former Lives independently: Yes Household members: spouse Marital status: service: No Current occupational status: retired Pets and animals: Yes History of recent travel: No Current gender identity: Female Physical Exam Const: COMMON NORMALS: no acute distress, patient oriented x3 and healthy appearing HENMT: COMMON NORMALS: normocephalic and atraumatic HEAD & SCALP: normocephalic and atraumatic Eye: COMMON NORMALS: Equal, round and reactive pupils present and EOMs intact bilaterally PUPIL: Yes Equal, round and reactive pupils present Neck/C-Spine: COMMON NORMALS: full ROM and supple Chest: COMMONS NORMALS: normal inspection of the chest OTHER: point tender center of chest Resp: COMMON NORMALS: normal respiratory effort, No retractions, No use of accessory muscles and clear to auscultation bilaterally AUSCULTATION: clear to auscultation bilaterally Cardio: COMMON NORMALS: regular rate, regular rhythm and No murmurs present (Cardio) RATE: regular rate RHYTHM: regular rhythm GI: COMMON NORMALS: Normal to inspection, nondistended, normoactive bowel so unds present, Soft to palpation, non-tender and no masses PALPATION: Yes Soft to palpation Extremity: COMMON NORMALS: normal to inspection and full ROM Neuro: COMMON NORMALS: patient oriented x3, moves all extremities and no focal motor deficits Psych: COMMON NORMALS: mental status grossly normal, Normal thought process present and cooperative THOUGHT PROCESS: Normal thought process present Skin: COMMON NORMALS: no rashes or lesions noted and no wounds GENERAL SKIN EXAM: no rashes or lesions noted Course Vital Signs: Vital signs: Vital Signs Temperature 97.8 F 12/23/22 18:31 Pulse Rate 74 12/23/22 20:30 Respiratory Rate 17 12/23/22 20:30 Blood Pressure 125/73 12/23/22 20:30 Pulse Oximetry 91 12/23/22 20:30 Oxygen Delivery Me thod 12/23/22 18:31 MDM - Chest Pain Medical Decision Making Patient presents here with chest pain is atypical in nature she does have some slight tenderness her pain has been resolved here her troponins are normal CTA shows no acute abnormalities she is stable for discharge she is to follow-up with PCP and return if worsening she understands agrees to plan. Lab Data 12/23/22 18:48 12/23/22 18:48 Radiology Impressions Chest X-Ray 12/23/22 18:48 IMPRESSION: 1. Left upper lobe pleuroparenchymal fibrosis 2. Emphysematous changes. Chest CTA 12/23/22 19:29 IMPRESSION: 1. Negative for pulmonary embolus. 2. Coronary artery atherosclerotic calcifications. 3. Emphysematous changes. 4. Stable left upper lobe pleuroparenchymal fibrosis with bronchiectasis and architectural distortion, likely reflecting post treatment changes. 5. Small hiatal hernia. COMMENTS: In the absence of a history or active diagnosis of lung cancer, it is recommended that this patient with emphysema be evaluated for enrollment in a low dose CT lung cancer screening program. Laboratory Results WBC 14.6 10^3/uL (4.0-10.0) H 12/23/22 18:48 RBC 4.78 10^6/uL (4.1-5.3) 12/23/22 18:48 Hgb 12.5 g/dL (11.5-15.3) 12/23/22 18:48 Hct 38.9 % (37.0-47.0) 12/23/22 18:48 MCV 81.4 fl (81-99) 12/23/22 18:48 MCH 26.2 pg (28.0-34.0) L 12/23/22 18:48 MCHC 32.1 g/dL (30.0-36.0) 12/23/22 18:48 RDW 18.2 % (12.1-15.1) H 12/23/22 18:48 Plt Count 508 10^3/cmm (130-400) H 12/23/22 18:48 MPV 9.2 fL (7.4-10.4) 12/23/22 18:48 Neut % (Auto) 59.8 % 12/23/22 18:48 Lymph % (Auto) 31.2 % 12/23/22 18:48 [place] % (Auto) 8.5 % 12/23/22 18:48 Eos % (Auto) 0.0 % 12/23/22 18:48 Baso % (Auto) 0.2 % 12/23/22 18:48 Neut # (Auto) 8.74 10^3/uL (1.8-7.7) H 12/23/22 18:48 Lymph # (Auto) 4.6 10^3/uL (0.8-4.8) 12/23/22 18:48 [place] # (Auto) 1.2 10^3/uL (0.2-0.9) H 12/23/22 18:48 Eos # (Auto) 0.0 10^3/uL (0.0-0.8) 12/23/22 18:48 Baso # (Auto) 0.0 10^3/uL (0.0-0.1) 12/23/22 18:48 Nucleated RBC % (auto) 0 % 12/23/22 18:48 Nucleated RBCs # 0.0 /100WBC 12/23/22 18:48 D-Dimer 2.35 ug/mIFEU (0-0.59) H 12/23/22 18:48 Sodium 138 mmol/L (136-145) 12/23/22 18:48 Potassium 3.3 mmol/L (3.5-5.1) L 12/23/22 18:48 Chloride 96 mmol/L (98-107) L 12/23/22 18:48 Carbon Dioxide 24 mmol/L (22-29) 12/23/22 18:48 Anion Gap 21.3 (5-19) H 12/23/22 18:48 BUN 21 mg/dL (8-23) 12/23/22 18:48 Creatinine 1.2 mg/dL (0.5-0.9) H 12/23/22 18:48 GFR Calculation 44.4 mL/min (90-130) L 12/23/22 18:48 Glucose 114 mg/dL (65-115) 12/23/22 18:48 Calculated Osmolality 290 mOsm/kg (285-295) 12/23/22 18:48 Calcium 10.2 mg/dL (8.5-10.5) 12/23/22 18:48 Total Bilirubin 0.8 mg/dL (0.15-1.2) 12/23/22 18:48 AST 15 U/L (0-32) 12/23/22 18:48 ALT 6 U/L (0-33) 12/23/22 18:48 Alkaline Phosphatase 105 U/L (35-105) 12/23/22 18:48 Troponin T Baseline 14 ng/L (0-10) H 12/23/22 18:48 Troponin T 120 Minute 12.39 ng/L (0-10) H 12/23/22 21:00 Delta Troponin T -1.61 ABS# (0-10) L 12/23/22 21:00 NT-Pro-B Natriuret Pep 2677 pg/mL (0-125) H 12/23/22 18:48 Total Protein 6.8 g/dL (6.6-8.7) 12/23/22 18:48 Albumin 4.5 g/dL (3.5-5.2) 12/23/22 18:48 Globulin 2.3 g/dL (1.3-4.6) 12/23/22 18:48 Lipase 17 U/L (13-60) 12/23/22 18:48 EKG Data EKG 1: I personally reviewed and interpreted this EKG as follows: EKG interpretation date: 12/23/22 EKG interpretation time: 19:28 Interpretation: sinus josé manuel hr [address] or t wave abnormalities qrs 83 qtc 496 Discharge Plan Discharge Patient Disposition: Home Clinical Impression: Chest pain Condition: Stable Prescriptions: New hydrocodone-acetaminophen 5-325 mg tablet 1 tab PO Q6H PRN (Reason: pain) Qty: 14 0RF No Action amitriptyline 25 mg tablet 25 mg PO ONCE 90 Days Qty: 90 0RF lisinopril 10 mg tablet 10 mg PO DAILY@20 Hold Instructions: Resume on 01/06/20. Follow-up with primary care provider to discuss need to continue this medication polyethylene glycol 3350 [Miralax] 17 gram powder in packet 17 gm PO DAILY@08 topiramate [Topamax] 100 mg tablet 100 mg PO DAILY Qty: 30 6RF Rx Instructions: Take 1/2 tablet daily lidocaine (PF) 10 mg/mL (1 %) solution 1 ml intra-articular ONCE Qty: 1 0RF methimazole 5 mg tablet 2.5 mg PO DAILY MARIJUIANA inhalation Emgality Pen 120 mg/mL pen injector 120 mg SUBCUT ONCE Qty: 1 2RF sumatriptan succinate 100 mg tablet See Rx Instructions .ROUTE .COMPLEX Qty: 9 6RF Dose Instruction: TAKE ONE TABLET BY MOUTH TWICE DAILY NEEDED FOR migraine HEADACHE wait AT least TWO HOURS between doses Rx Instructions: TAKE ONE TABLET BY MOUTH TWICE DAILY NEEDED FOR migraine HEADACHE wait AT least TWO HOURS between doses oxycodone 5 mg tablet 5 mg PO Q4H PRN (Reason: pain) 30 Days Qty: 120 0RF Trelegy Ellipta 100-62.5-25 mcg blister with device See Rx Instructions .ROUTE .COMPLEX Qty: 60 2RF Dose Instruction: inhale ONE PUFF into lungs DAILY Rx Instructions: inhale ONE PUFF into lungs DAILY mv,Ca,ir,Za-WU-ozm-gel-patty-PAB 3-133 mg-mcg Capsule 2 cap PO DAILY Benefiber Healthy Shape 5 gram/7.4 gram Powder See Rx Instructions .ROUTE .COMPLEX Rx Instructions: 1 TSP PO QAM Probiotic 2 tab PO QAM clopidogrel 75 mg tablet 75 mg PO DAILY@20 Hold Instructions: Doctor's Order pantoprazole [Protonix] 40 mg tablet,delayed release (DR/EC) 40 mg PO BID atenolol 50 mg tablet 50 mg PO DAILY@20 dicyclomine 20 mg tablet 20 mg PO QID PRN (Reason: Abdominal Discomfort) Discharge Orders: Discharge ED (Routine); Ordered 12/23/22 Ordered By: Harley Barker Referrals: Maria Emery MD [Primary Care Provider] - 1-3 days Discharge Diet: Advance as tolerated Discharge Activity: Resume usual activity Patient Instructions: Chest Pain (ED), Opioid Safety Coding Level of Care Code ED Label Printing Machinist for Chg Fwd Exam Comprehensive
[2022-12-23 19:22] LABS: D Dimer 2.35 ug/mIFEU (0-0.59)
--- NOTE | 2022-12-23 19:29 | CTR_ITS ---
PROCEDURE INFORMATION: Exam: CTA Chest With Contrast Exam date and time: 12/23/2022 7:47 PM Age: 72 years old Clinical indication: Pain; Chest pressure; Prior surgery; Surgery date: 6+ months; Surgery type: Lung, HX of lung CA with chemo and radiation, csection. PT denies smoking HX; Additional info: SOB TECHNIQUE: Imaging protocol: Computed tomographic angiography of the chest with contrast. 3D rendering (Not supervised by radiologist): MIP and/or 3D reconstructed images were created by the technologist. Radiation optimization: All CT scans at this facility use at least one of these dose optimization techniques: automated exposure control; mA and/or kV adjustment per patient size (includes targeted exams where dose is matched to clinical indication); or iterative reconstruction. Contrast material: OMNIPAQUE 350; Contrast volume: 95 ml; Contrast route: INTRAVENOUS (IV); Other protocol: This patient has received 3 known CTs and 0 known cardiac nuclear medicine studies in the 12 months prior to the current study. COMPARISON: CT angio chest w abd pel w con 03/03/2022 12:08 AM RADIATION DOSE METRICS: Total DLP (mGy-cm): 373.72 FINDINGS: Tubes, catheters and devices: Right-sided Port-A-Cath Pulmonary arteries: Normal. No pulmonary emboli. Aorta: Unremarkable. No aortic aneurysm. No aortic dissection. Lungs: Emphysematous changes. Stable left upper lobe pleuroparenchymal fibrosis with bronchiectasis and architectural distortion. Pleural spaces: Unremarkable. No pneumothorax. No pleural effusion. Heart: Unremarkable. No cardiomegaly. No pericardial effusion. Coronary arteries: Coronary artery atherosclerotic calcifications. Lymph nodes: Unremarkable. No enlarged lymph nodes. Diaphragm: Small hiatal hernia. Bones/joints: Unremarkable. No acute fracture. Soft tissues: Unremarkable. CT/CT angio chest PE protcl [id number] IMPRESSION: 1. Negative for pulmonary embolus. 2. Coronary artery atherosclerotic calcifications. 3. Emphysematous changes. 4. Stable left upper lobe pleuroparenchymal fibrosis with bronchiectasis and architectural distortion, likely reflecting post treatment changes. 5. Small hiatal hernia. COMMENTS: In the absence of a history or active diagnosis of lung cancer, it is recommended that this patient with emphysema be evaluated for enrollment in a low dose CT lung cancer screening program.
[2022-12-23 19:30] LABS: Troponin(5th) Baseline 14 ng/L (0-10)
[2022-12-23 19:39] LABS: Alanine Aminotransferase 6 U/L (0-33); Albumin Level 4.5 g/dL (3.5-5.2); Alkaline Phosphatase 105 U/L (35-105); Anion Gap 21.3 (5-19); Aspartate Amino Transferase 15 U/L (0-32); Blood Urea Nitrogen 21 mg/dL (8-23); Calcium 10.2 mg/dL (8.5-10.5); Carbon Dioxide 24 mmol/L (22-29); Chloride 96 mmol/L (98-107); Globulin 2.3 g/dL (1.3-4.6); Glomerular Filtration Rate 44.4 mL/min (90-130); Glucose 114 mg/dL (65-115); Lipase 17 U/L (13-60); NT Pro B Type Natriuretic Pept 2677 pg/mL (0-125); Osmolality Calculated 290 mOsm/kg (285-295); Potassium 3.3 mmol/L (3.5-5.1); Sodium 138 mmol/L (136-145); Total Bilirubin 0.8 mg/dL (0.15-1.2); Total Protein 6.8 g/dL (6.6-8.7)
[2022-12-23] MEDS: iohexol 350 mg/mL 500 mL Btl (per mL) IV (19:49)
--- NOTE | 2022-12-23 20:48 | ECG_ITS ---
[facility] Test Date: 2022-12-23 Pat Name: May Cummings Department: Room: Gender: Female [employer]: : 1950 Requested By: Mekhi Corea Order Number: [id number] Ohara MD: Salvatore Jones M.D. Measurements Intervals [place] Rate: 69 P: 76 [place]: 158 QRS: 76 QRSD: 79 T: 79 QT: 450 QTc: 483 Interpretive Statements SINUS RHYTHM WITH SINUS ARRHYTHMIA MINIMAL ST DEPRESSION [0.025+ mV ST DEPRESSION] Compared to ECG 12/23/2022 19:28:02 ST (T wave) deviation now present Sinus bradycardia no longer present Prolonged QT interval no longer present Electronically Signed On 12-23-2022 23:28:02 BIOLOGIST by Salvatore Jones M.D. [email or web address]
[2022-12-23 21:40] LABS: Troponin 5 2HR 12.39 ng/L (0-10)
[2022-12-23 21:46] LABS: Troponin 5 2HR Delta -1.61 ABS# (0-10)
[2022-12-23] MEDS: HYDROcodone-acetaminophen 5-325 mg Tablet 1 TAB PO (22:07)
== END 2022-12-23 22:17 | disposition home or self-care (01) ==
PROVIDERS: Physician Assistant; Emergency Provider Emergency Medicine; PCP Family Medicine
DX: R07.89 Other chest pain (principal); Z79.02 Long term (current) use of antithrombotics/antiplatelets; Z87.891 Personal history of nicotine dependence; J44.9 Chronic obstructive pulmonary disease, unspecified; E78.5 Hyperlipidemia, unspecified; I10 Essential (primary) hypertension; Z85.118 Personal history of other malignant neoplasm of bronchus and lung
CPT/HCPCS: 71045; 71275; 80053; 83690; 83880; 84484; 85025; 85378; 93005; 96374; 96375; 99285; J2270; J2405; Q9967

== ENCOUNTER 2022-12-25 18:21 | Inpatient (IN) | payer MEDICARE, SELFPAY ==
[2022-12-25 18:25] VITALS: BP 150/74; PULSE 57; RESP 16; TEMP 37.1; O2SAT 95
--- NOTE | 2022-12-25 18:37 | CTR_ITS ---
PROCEDURE INFORMATION: Exam: CT Head Without Contrast Exam date and time: 12/25/2022 7:28 PM Age: 72 years old Clinical indication: Altered mental status/memory loss; Additional info: AMS TECHNIQUE: Imaging protocol: Computed tomography of the head without contrast. Radiation optimization: All CT scans at this facility use at least one of these dose optimization techniques: automated exposure control; mA and/or kV adjustment per patient size (includes targeted exams where dose is matched to clinical indication); or iterative reconstruction. Other protocol: This patient has received 4 known CTs and 0 known cardiac nuclear medicine studies in the 12 months prior to the current study. COMPARISON: CT head wo/w con [id number] 05/26/2021 12:43 PM RADIATION DOSE METRICS: Total DLP (mGy-cm): 980.84 FINDINGS: Brain: Since 2020 there is a new area diminished red-white differentiation in the left parietal lobe extending into the posterior temporal lobe measuring up to 4 cm. The finding is suspicious for recent ischemia. Chronic white matter hypodensity in both frontal lobes is similar to 2020, likely microangiopathy. 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 Cerebral ventricles: No ventriculomegaly. Paranasal sinuses: Scattered mucosal thickening in the ethmoid air cells. Mastoid air cells: Visualized mastoid air cells are well aerated. Bones/joints: Unremarkable. No acute fracture. Soft tissues: Unremarkable. Vasculature: Chronic aneurysm coiling in the region of the basilar tip. Other findings: No significant mass effect or hemorrhage. CT/CT head wo con* [id number] IMPRESSION: 1. New peripheral edema in the left parietal and temporal lobes suggestive of recent ischemia. No hemorrhage or significant mass effect. 2. Chronic microangiopathy. 3. 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 4. Chronic aneurysm coiling in the region of the basilar tip.
--- NOTE | 2022-12-25 18:37 | XRR_ITS ---
PROCEDURE INFORMATION: Exam: XR Chest Exam date and time: 12/25/2022 7:11 PM Age: 72 years old Clinical indication: Other: AMS TECHNIQUE: Imaging protocol: Radiologic exam of the chest. Views: 1 view. COMPARISON: CR (CHEST, ) 12/23/2022 7:03 PM FINDINGS: Tubes, catheters and devices: Right chest wall implanted venous access port ends near the cavoatrial junction. Lungs: Unchanged fibrosis in the lung left upper lobe with hilar retraction Pleural spaces: Unremarkable. No pleural effusion. No pneumothorax. Heart/Mediastinum: Unremarkable. No cardiomegaly. Bones/joints: The bones are demineralized. XR/XR chest 1V portable [id number] IMPRESSION: No acute findings
--- NOTE | 2022-12-25 18:41 | W.ED.AMS ---
HPI - Altered Mental Status General: Chief Complaint: Altered Mental Status Stated Complaint: AMS Time Seen by Provider: 12/25/22 18:29 History of Present Illness: 72-year-old female who was seen 48 hours ago for chest discomfort. She presents this evening with a last known well time 11 PM last night. She is significantly confused. She is making no sense talking, except to say that I am so cold . She lives at home with her who has had a stroke. She denies fever, but is otherwise a poor historian. She moves all extremities. MD complaint: altered mental status and confusion Timing confirmed by: spouse Severity: moderate Consistency of symptoms: Unknown Context: change in medication (Was given hydrocodone for chest pain 48 hours ago) Associated symptoms: Reports delusions Review of Systems General: Reports: ROS unobtainable due to medical condition and ROS unobtainable due to mental status PFS ED PFSH: Medical History Anxiety disorder Basilar artery aneurysm Chronic migraine COPD (chronic obstructive pulmonary disease) Degenerative joint disease of spine Dyslipidemia Gastritis Hypertension Continue on atenolol, hold lisinopril until seen by primary care provider Hyperthyroidism Continue on home methimazole Insomnia Lumbar spinal stenosis Non-small cell lung cancer Plantar fasciitis Statin intolerance Surgical History H/O section H/O splenectomy 2007 History of esophagogastroduodenoscopy (EGD) 2019 -gastritis S/P coil embolization of cerebral aneurysm 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, stent subsequently removed Status post colonoscopy 2018: Normal repeat in 10 years Family History Mother Diabetes Father Heart disease Grandmother Stroke Other Suicide Denies family history of CAD (coronary artery disease) Clotting disorder Dementia Hyperlipidemia Psychiatric illness Chronic kidney disease (CKD) Anesthesia complication Bleeding disorder Lung disease Cancer Hypertension Social History Smoking and tobacco status: former smoker Quit status (tobacco): has quit using tobacco Year quit tobacco: 2016 [id number] Second hand smoke exposure: No Smoking risk assessment/counseling performed?: Yes Alcohol intake: former Lives independently: Yes Household members: spouse Marital status: service: No Current occupational status: retired Pets and animals: Yes History of recent travel: No Current gender identity: Female Physical Exam Const: COMMON NORMALS: alert GENERAL APPEARANCE: cooperative, in distress, anxious and frail appearing HENMT: COMMON NORMALS: normocephalic, atraumatic and Normal external nose present HEAD & SCALP: normocephalic and atraumatic FACE & SINUS: normal facial exam and face symmetric NOSE: Normal external nose present Eye: COMMON NORMALS: Equal, round and reactive pupils present and EOMs intact bilaterally PUPIL: Yes Equal, round and reactive pupils present Neck/C-Spine: GENERAL: Yes trachea midline Chest: CHEST: Yes Symmetrical chest wall rise Resp: COMMON NORMALS: clear to auscultation bilaterally EFFORT & INSPECTION: Yes tachypneic AUSCULTATION: clear to auscultation bilaterally Cardio: COMMON NORMALS: regular rate and regular rhythm RATE: regular rate RHYTHM: regular rhythm GI: COMMON NORMALS: Normal to inspection, nondistended, normoactive bowel sounds present and Soft to palpation PALPATION: Yes Soft to palpation Extremity: COMMON NORMALS: no pedal edema Neuro: KYLER COMA SCALE: document GCS findings Kyler coma scale eye opening: Spontaneous Denio coma scale verbal response: Confused Denio coma scale motor response: Obey commands Denio coma scale total score: 14 SENSORIUM/ORIENTATION: Yes alert CRANIAL NERVES: Yes CN normal except as noted SPEECH: Other neuro speech findings (Nonsensical) GAIT: Yes Unable to assess gait MOTOR EXAM: 5/5 motor strength present throughout Psych: COMMON NORMALS: speech normal ATTITUDE: Yes agitated ACTIVITY/MOTOR BEHAVIOR: Yes psychomotor agitation SPEECH: Yes normal speech MOOD & AFFECT: Yes apathetic and Yes fearful THOUGHT PROCESS: disorganized and confused THOUGHT CONTENT: Yes delusions Course Vital Signs: Vital signs: Vital Signs Temperature 97.3 F L 12/25/22 22:21 Pulse Rate 50 L 12/26/22 00:00 Respiratory Rate 16 12/26/22 00:00 Blood Pressure 129/82 12/26/22 00:00 Pulse Oximetry 100 12/26/22 00:00 Oxygen Delivery Me thod 12/25/22 22:41 Oxygen Flow Rate 4 12/25/22 22:41 MDM - Altered Mental Status Medical Decision Making 72-year-old female with altered mental status. Her neurological examination is very nonfocal. She actually has symmetrical strength, no language deficits, no visual field cuts, no gaze problem or preference, no sensory changes, etc. She does have significant disorientation. At 1 point she kept saying there is something in my head there is something in my head I know know what it is . She denies headache though. She cannot tell me the day of the week, nor the month. She cannot tell me where she is. She became somewhat combative at one point, demanding to go home. When she was told that without being orientated, and that her family was very concerned about her, she became more upset and combative. Because of this, she was given Haldol, Ativan, and ketamine IV. She is resting comfortably now. Heart rate is 55, saturations 99% on 2 L, blood pressure 127/73. CT scan of the head showed some potential minimal edematous changes surrounding the left parietal and temporal lobes. This was concerning for a potential stroke. This patient's last known well was essentially 20 hours or more prior to arrival. Her stroke scale is 2 given her disorientation being the only exam finding. Neurology at [facility] was consulted. They note that no intervention would be potentially beneficial given her low stroke scale, nonfocal neurological findings, significant time elapsed from last known well, and subtle changes on CT that actually could be artifact. No other cause for altered mental status is identified. The patient experiences no nuchal rigidity. White blood cell count is 12 with no shift. Potassium is 3.1. She does have a BUN of 44 and creatinine of 2.1. I suppose uremia from renal failure could be contributing. She will take a while to clear the Ativan she was given IV with that creatinine. She will go to the ICU with IV fluid support, respiratory support as needed, etc. hospitalist is aware and has agreed to admit. Lab Data 12/25/22 18:50 12/25/22 18:50 Radiology Impressions Chest X-Ray 12/25/22 18:37 IMPRESSION: No acute findings Head CT 12/25/22 18:37 IMPRESSION: 1. New peripheral edema in the left parietal and temporal lobes suggestive of recent ischemia. No hemorrhage or significant mass effect. 2. Chronic microangiopathy. 3. 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 4. Chronic aneurysm coiling in the region of the basilar tip. ADDENDUM: 12/25/222030 THIS REPORT CONTAINS FINDINGS THAT MAY BE CRITICAL TO PATIENT CARE. The findings were verbally communicated via telephone conference with RUSSELL PERAZA at 8:29 PM LIGHT ADJUSTER on 12/25/2022. The findings were acknowledged and understood. Laboratory Results WBC 12.0 10^3/uL (4.0-10.0) H 12/25/22 18:50 RBC 4.82 10^6/uL (4.1-5.3) 12/25/22 18:50 Hgb 12.6 g/dL (11.5-15.3) 12/25/22 18:50 Hct 40.3 % (37.0-47.0) 12/25/22 18:50 MCV 83.6 fl (81-99) 12/25/22 18:50 MCH 26.1 pg (28.0-34.0) L 12/25/22 18:50 MCHC 31.3 g/dL (30.0-36.0) 12/25/22 18:50 RDW 18.5 % (12.1-15.1) H 12/25/22 18:50 Plt Count 490 10^3/cmm (130-400) H 12/25/22 18:50 MPV 9.0 fL (7.4-10.4) 12/25/22 18:50 Neut % (Auto) 54.4 % 12/25/22 18:50 Lymph % (Auto) 34.0 % 12/25/22 18:50 [place] % (Auto) 8.7 % 12/25/22 18:50 Eos % (Auto) 1.9 % 12/25/22 18:50 Baso % (Auto) 0.7 % 12/25/22 18:50 Neut # (Auto) 6.54 10^3/uL (1.8-7.7) 12/25/22 18:50 Lymph # (Auto) 4.1 10^3/uL (0.8-4.8) 12/25/22 18:50 [place] # (Auto) 1.0 10^3/uL (0.2-0.9) H 12/25/22 18:50 Eos # (Auto) 0.2 10^3/uL (0.0-0.8) 12/25/22 18:50 Baso # (Auto) 0.1 10^3/uL (0.0-0.1) 12/25/22 18:50 Nucleated RBC % (auto) 0 % 12/25/22 18:50 Nucleated RBCs # 0.0 /100WBC 12/25/22 18:50 Specimen Type Arterial 12/25/22 18:48 Sample Site Radial, left 12/25/22 18:48 ABG pH 7.49 (7.35-7.45) H 12/25/22 18:48 ABG pCO2 33.2 mmHg (35-45) L 12/25/22 18:48 ABG pO2 91.7 mmHg (80.0-100.0) 12/25/22 18:48 ABG HCO3 25.0 mmol/L (22-26) 12/25/22 18:48 ABG Base Excess 2.0 mmol/L (-2.0-2.0) 12/25/22 18:48 [place] Test Pos 12/25/22 18:48 Hematocrit 40.2 % (37-47) 12/25/22 18:48 O2 Delivery Device Room air 12/25/22 18:48 FiO2 21.0 % 12/25/22 18:48 Housing And Residence Life Director ID Cak 12/25/22 18:48 Sodium 136 mmol/L (136-145) 12/25/22 18:50 Potassium 3.1 mmol/L (3.5-5.1) L 12/25/22 18:50 Chloride 96 mmol/L (98-107) L 12/25/22 18:50 Carbon Dioxide 26 mmol/L (22-29) 12/25/22 18:50 Anion Gap 17.1 (5-19) 12/25/22 18:50 BUN 44 mg/dL (8-23) H 12/25/22 18:50 Creatinine 2.1 mg/dL (0.5-0.9) H 12/25/22 18:50 GFR Calculation 23.3 mL/min (90-130) L 12/25/22 18:50 Glucose 98 mg/dL (65-115) 12/25/22 18:50 Calculated Osmolality 293 mOsm/kg (285-295) 12/25/22 18:50 Lactate 1.4 mmol/L (0.5-2.2) 12/25/22 18:50 Calcium 9.5 mg/dL (8.5-10.5) 12/25/22 18:50 Total Bilirubin 0.4 mg/dL (0.15-1.2) 12/25/22 18:50 AST 12 U/L (0-32) 12/25/22 18:50 ALT 7 U/L (0-33) 12/25/22 18:50 Alkaline Phosphatase 96 U/L (35-105) 12/25/22 18:50 Ammonia 18 umol/L (11-51) 12/25/22 18:50 C-Reactive Protein 3.0 mg/L (0.0-4.9) 12/25/22 18:50 Total Protein 6.6 g/dL (6.6-8.7) 12/25/22 18:50 Albumin 3.9 g/dL (3.5-5.2) 12/25/22 18:50 Globulin 2.7 g/dL (1.3-4.6) 12/25/22 18:50 Urine Color Yellow (Yellow) 12/25/22 19:13 Urine Appearance Clear (CLEAR) 12/25/22 19:13 Urine pH 5 (5-7) 12/25/22 19:13 Ur Specific [place] 1.015 (1.005-1.030) 12/25/22 19:13 Urine Protein 1+ (Negative) H 12/25/22 19:13 Urine Glucose (UA) Norm (Normal) 12/25/22 19:13 Urine Ketones Negative (Negative) 12/25/22 19:13 Urine Blood Trace (Negative) H 12/25/22 19:13 Urine Nitrate Negative (Negative) 12/25/22 19:13 Urine Bilirubin Neg (Negative) 12/25/22 19:13 Urine Urobilinogen Neg mg/dL (Negative) 12/25/22 19:13 Ur Leukocyte Esterase Negative (Negative) 12/25/22 19:13 Urine RBC 0-4 /hpf (0-2) H 12/25/22 19:13 Urine WBC 0-4 /hpf (0-5) H 12/25/22 19:13 Ur Squamous Epith Cells 5-10 /hpf (0-5) H 12/25/22 19:13 Amorphous Sediment Not Reportable 12/25/22 19:13 Urine Bacteria Trace /hpf (NONE) 12/25/22 19:13 Urine Mucus Trace /hpf 12/25/22 19:13 Acetaminophen < 5.0 ug/mL (10-30) L 12/25/22 18:50 Ethyl Alcohol < 10 mg/dL (0-10) 12/25/22 18:50 Discharge Plan Discharge Patient Disposition: Admitted As Inpatient Admit Provider: Mekhi Dhaliwal Clinical Impression: Altered mental status, CALVIN (acute kidney injury) Condition: Fair Coding Level of Care Code ED Psychiatric Technician Assistant for Chg Fwd Exam Comprehensive NIH stroke score NIHSS Level Of Consciousness - 1a: 0 Level Of Consciousness Questions - 1b: Both Correct Level Of Consciousness Commands - 1c: Neither Correct Best Gaze - 2: Normal Visual Ramírez - 3: No Visual Loss Facial Palsy - 4: Normal Motor Arm Right - 5: No Drift Motor Arm Left - 5: No Drift Motor Leg Right - 6: No Drift Motor Leg Left - 6: No Drift Limb Ataxia - 7: Absent Sensory - 8: Normal Best Language - 9: No Aphasia Dysarthia - 10: Normal Extinction And Inattention - 11: 0 Score Total Score: 2
--- NOTE | 2022-12-25 18:45 | ECG_ITS ---
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 Measurements Intervals Burket Rate: 54 P: 76 IN: 179 QRS: 73 QRSD: 82 T: 70 QT: 455 QTc: 434 Interpretive Statements SINUS BRADYCARDIA MODERATE T-WAVE ABNORMALITY, CONSIDER ANTERIOR ISCHEMIA [-0.1+ mV T-WAVE IN V3/V4] INTERPRETATION BASED ON A DEFAULT AGE OF 40 YEARS Compared to ECG 12/23/2022 20:55:36 T-wave abnormality now present Possible ischemia now present Sinus rhythm no longer present Sinus arrhythmia no longer present ST (T wave) deviation no longer present Electronically Signed On 12-26-2022 20:52:09 HAND FORMER by Lashonda Brantley M.D. [id number]
[2022-12-25 18:59] LABS: ABG PCO2 33.2 mmHg (35-45); ABG PH Result 7.49 (7.35-7.45); Arterial Blood Gas Hematocrit 40.2 % (37-47); Blood Gas Allen Test Pos; Blood Gas Operator Identificat CAK; Blood Gas Sample Site Radial, left; Blood Gas Sample Type Arterial; Oxygen Device ROOM AIR; PO2 ABG 91.7 mmHg (80.0-100.0)
[2022-12-25 19:18] LABS: Basophils # 0.1 10^3/uL (0.0-0.1); Basophils % 0.7 %; Eosinophils # 0.2 10^3/uL (0.0-0.8); Eosinophils % 1.9 %; Hematocrit 40.3 % (37.0-47.0); Hemoglobin 12.6 g/dL (11.5-15.3); Lymphocytes # 4.1 10^3/uL (0.8-4.8); Mean Corpuscular HGB Conc 31.3 g/dL (30.0-36.0); Mean Corpuscular Hemoglobin 26.1 pg (28.0-34.0); Mean Corpuscular Volume 83.6 fl (81-99); Monocytes % 8.7 %; Neutrophils # 6.54 10^3/uL (1.8-7.7); Neutrophils % 54.4 %; Nucleated Red Blood Cells % 0 %; Platelet Count 490 10^3/cmm (130-400); Red Blood Count 4.82 10^6/uL (4.1-5.3); Red Cell Distribution Width 18.5 % (12.1-15.1)
[2022-12-25 19:37] LABS: Alanine Aminotransferase 7 U/L (0-33); Albumin Level 3.9 g/dL (3.5-5.2); Alkaline Phosphatase 96 U/L (35-105); Anion Gap 17.1 (5-19); Aspartate Amino Transferase 12 U/L (0-32); Blood Urea Nitrogen 44 mg/dL (8-23); Calcium 9.5 mg/dL (8.5-10.5); Carbon Dioxide 26 mmol/L (22-29); Chloride 96 mmol/L (98-107); Globulin 2.7 g/dL (1.3-4.6); Glomerular Filtration Rate 23.3 mL/min (90-130); Glucose 98 mg/dL (65-115); Lactate (Lactic Acid level) 1.4 mmol/L (0.5-2.2); Osmolality Calculated 293 mOsm/kg (285-295); Potassium 3.1 mmol/L (3.5-5.1); Sodium 136 mmol/L (136-145); Total Bilirubin 0.4 mg/dL (0.15-1.2); Total Protein 6.6 g/dL (6.6-8.7)
[2022-12-25 19:38] LABS: Ammonia 18 umol/L (11-51)
[2022-12-25 19:41] LABS: Add Urine Microscopic? YES; Bilirubin Urine Neg (Negative); Blood Urine Trace (Negative); Glucose Urine UA Norm (Normal); Ketones Urine Negative (Negative); Leukocyte Esterase Urine Negative (Negative); Nitrate Urine Negative (Negative); Protein Urine 1+ (Negative); Specific Gravity, Urine 1.015 (1.005-1.030); Urine Appearance Clear (CLEAR); Urine Color Yellow (Yellow); Urobilinogen Urine Neg (Negative); pH Urine 5 (5-7)
[2022-12-25 19:44] LABS: Acetaminophen < 5.0 ug/mL (10-30); Alcohol Level < 10 mg/dL (0-10)
[2022-12-25 19:46] LABS: Add Urine Culture? No; Bacteria Urine TRACE /hpf; Mucus Urine TRACE /hpf; RBC Urine 0-4 /hpf (0-2); WBC Urine 0-4 /hpf (0-5)
[2022-12-25] MEDS: haloperidol inj 5 mg/mL INJ 1 mL 3 MG IVP (20:45)
[2022-12-25] MEDS: sodium chloride 0.9% 1,000 ML 999 ML IV (20:47)
[2022-12-25 20:48] VITALS: BP 87/64; PULSE 77; RESP 20; O2SAT 93
[2022-12-25] MEDS: LORazepam 2 mg/mL INJ 1 mL IVP (22:09)
--- NOTE | 2022-12-25 22:14 | PC.NURSE ---
@ approximately 22:00 pt was becoming agitated and verbal aggressive. PT kept stating she wanted to leave and she was trying to pull off monitor leads, pull out IV, and get out of bed. Tried to deescalated and talk to patient and explain the reason as to why she is here. PT continued to get aggressive and verbally abuse staff. PT pulled self to end of bed trying to leave nurse, Mamta Miguel, tried to keep pt in bed to prevent fall or injury and proceeded to call for help. Nursing staff and Dr. Sheldon came into room to assist in getting pt back into bed. Dr. Sheldon verbally ordered medications to assist in calming pt down. While grabbing medications patient became increasingly agitated and start to claw and attempt hitting staff. PT given medications. PT calm at this time. placed pt on monitor and will continue to monitor pts condition.
[2022-12-25 22:21] VITALS: BP 151/68; PULSE 71; RESP 19; TEMP 36.3; O2SAT 97
--- NOTE | 2022-12-25 22:39 | P.HP_ITS ---
Providers/Chief Complaint Admitting Physician: Mekhi Dhaliwal MD Primary Care Provider: Maria Emery MD Chief Complaint: AMS History of Present Illness May Cummings is a 72 year old female with a past medical history significant for anxiety, basilar artery aneurysm, migraines, COPD, dyslipidemia, hypertension, hyperthyroidism, lumbar stenosis, and non-small cell carcinoma of the left upper lung lobe who presents to the emergency room with altered mental status. Last known well was 11 PM last night. Upon evaluation, patient had been medicated for agitation and in a stuporous state. She is unable to provide any history. History is obtained from ED provider as well as chart review. She was reportedly confused upon presentation stating that her only complaint was that she was cold. Per ED provider exam, patient did not have a focal neurological deficit. Of note, patient was recently evaluated 48 hours ago for chest pain and was prescribed hydrocodone. In the ED, CT head showed new peripheral edema in the left parietal and temporal lobe suggestive of recent ischemia without hemorrhage or significant mass effect among other chronic findings. Requested that teleneurology evaluate patient before excepting the hospitalist service. Remote neurology evaluated patient and per ED provider report, the CT findings favored artifact rather than acute stroke. Review of Systems Narrative: Attempted to obtain a complete review of systems however was unable to as patient is in a stuporous state. Medications/Allergies Home Medications Medication Instructions Recorded Confirmed Last Taken Type lisinopril 10 mg tablet 10 mg PO DAILY@11/19/19 12/25/22 04/19/21 History polyethylene glycol 3350 17 gram 17 gm PO DAILY@08 11/19/19 12/25/22 04/20/21 History oral powder packet (Miralax) Probiotic 2 tab PO QAM 03/08/21 12/25/22 04/20/21 History atenolol 50 mg tablet 50 mg PO DAILY@03/08/21 12/25/22 04/19/21 History clopidogrel 75 mg tablet 75 mg PO DAILY@03/08/21 12/25/22 04/19/21 History multivit,Ca,iron,ecx-YH-ustbtys-wtyypam-idzw-VHHX 2 cap PO DAILY 03/08/21 12/25/22 04/20/21 History 3 mg-133 mcg capsule pantoprazole 40 mg tablet,delayed 40 mg PO BID 03/08/21 12/25/2204/20/21 08:00 History release (Protonix) wheat dextrin 5 gram/7.4 gram oral See Rx Instructions .Route .COMPLEX 03/08/21 12/25/22 04/20/21 History powder (Benefiber Healthy Shape) dicyclomine 20 mg tablet 20 mg PO QID PRN Abdominal 03/26/21 12/25/22 03/25/21 History Discomfort topiramate 100 mg tablet (Topamax) 100 mg PO DAILY #30 tabs 01/24/22 12/25/22 Unknown Rx sumatriptan succinate 100 mg tablet See Rx Instructions .Route 09/20/22 12/25/22 Unknown Rx .COMPLEX #9 tabs oxycodone 5 mg tablet 5 mg PO Q4H PRN pain 30 days #120 11/24/22 12/25/22 Unknown Rx tabs methimazole 5 mg tablet 2.5 mg PO DAILY 12/06/22 12/25/22 Unknown History fluticasone fur. 100 mcg-umeclid See Rx Instructions .Route 12/19/22 12/25/22 Unknown Rx 62.5 mcg-vilant 25 mcg .COMPLEX #60 blisters inhalat.powder (Trelegy Ellipta) hydrocodone 5 mg-acetaminophen 325 1 tab PO Q6H PRN pain #14 tabs 12/23/22 12/25/22 Unknown Rx mg tablet amitriptyline 25 mg tablet 25 mg PO DAILY 12/25/22 12/25/22 Unknown History galcanezumab-gnlm 120 mg/mL 240 mg SUBCUT Q30D 12/25/22 12/25/22 Unknown History subcutaneous pen injector (Emgality Pen) Allergies Allergy/AdvReac Type Severity Reaction Status Date / Time aspirin Allergy Unknown Verified 12/23/22 18:40 PFSH Acute 2 PFSH: Medical History Anxiety disorder Basilar artery aneurysm Chronic migraine COPD (chronic obstructive pulmonary disease) Degenerative joint disease of spine Dyslipidemia Gastritis Hypertension Continue on atenolol, hold lisinopril until seen by primary care provider Hyperthyroidism Continue on home methimazole Insomnia Lumbar spinal stenosis Non-small cell lung cancer Plantar fasciitis Statin intolerance Surgical History H/O section H/O splenectomy 2008 History of esophagogastroduodenoscopy (EGD) 2019 -gastritis S/P coil embolization of cerebral aneurysm 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, stent subsequently removed Status post colonoscopy 2018: Normal repeat in 10 years Family History Mother Diabetes Father Heart disease Grandmother Stroke Other Suicide Denies family history of CAD (coronary artery disease) Clotting disorder Dementia Hyperlipidemia Psychiatric illness Chronic kidney disease (CKD) Anesthesia complication Bleeding disorder Lung disease Cancer Hypertension Social History Smoking and tobacco status: former smoker Quit status (tobacco): has quit using tobacco Year quit tobacco: 2016 [id number] Second hand smoke exposure: No Smoking risk assessment/counseling performed?: Yes Alcohol intake: former Lives independently: Yes Household members: spouse Marital status: service: No Current occupational status: retired Pets and animals: Yes History of recent travel: No Current gender identity: Female Vitals/I&O/Wt Last Vital Signs Temp 97.3 F L 12/25/22 22:21 Pulse 71 12/25/22 22:21 Resp 19 H 12/25/22 22:21 BP 151/68 12/25/22 22:21 Pulse Ox 97 12/25/22 22:21 O2 Del Method 12/25/22 22:21 O2 Flow Rate 4 12/25/22 22:21 12/25/22 12/25/22 12/25/22 06:59 14:59 22:59 Intake Total 715.95 / 715.95 Balance 715.95 / 715.95 Weight last 48 hrs Weight 77 kg Physical Exam Narrative: General: Patient is in a stuporous state Head: Normocephalic. Atraumatic. Neck: No JVD. Cardiovascular: RRR. No gallops. No murmurs. No peripheral edema. Lungs: Clear to auscultation, no use of accessory muscles, no crackles or wheezes. Skin: No jaundice. No rashes. Abdomen: Normal bowel sounds, abdomen soft and nontender. Genito Urinary: Genital exam not performed since complaints not related. Rectal: Rectal exam not performed since no symptoms indicated blood loss. Extremities: No cyanosis or clubbing. Musculoskeletal: No swollen or erythematous joints. Neurological: Stuporous. No myoclonus. Data 12/25/22 18:50 12/25/22 18:50 Micro: Microbiology 12/25/22 19:03 Blood Culture - Preliminary Blood SPECIMEN COLLECTED 12/25/22 18:50 Blood Culture - Preliminary Blood SPECIMEN COLLECTED A&P Assessment and plan (1) Altered mental status: Suspect secondary to acute toxic encephalopathy secondary to opiates Teleneurology evaluated, favored CT findings artifactual Head MRI ordered Serial neurological exams Urinary drug screen Check B12 and TSH Avoid sedating medications Hold home amitriptyline, hydrocodone, oxycodone, and topiramate for now (2) CALVIN (acute kidney injury): Start IV fluids Trend renal function (3) Hypokalemia: Replace with IV potassium Check magnesium in a.m. (4) COPD (chronic obstructive pulmonary disease): Not in acute exacerbation Qualifiers: COPD type: emphysema Emphysema type: centrilobular Qualified Code(s): J43.2 - Centrilobular emphysema (5) Malignant neoplasm of upper lobe, left bronchus or lung: Keep outpatient follow-up (6) Chronic migraine: On Emgality as outpatient (7) Hyperthyroidism: Continue methimazole (8) Hypertension: Continue lisinopril Plan DVT ppx: Lovenox Code status: Assume Full Code Attestations Medical Necessity Statement*: Patient presents with confusion in the setting of recent opiate prescription with abnormal CT findings requiring hospitalization with expected work-up and treatment not to cross 2 midnights. Coding Level of Care Code Acute Code for [facility] Fwd Diagnoses Altered mental status R41.82 CALVIN (acute kidney injury) N17.9 Hypokalemia E87.6 COPD (chronic obstructive pulmonary disease) J43.2 COPD type: emphysema Emphysema type: centrilobular Malignant neoplasm of upper lobe, left bronchus or lung C34.12 Chronic migraine Hyperthyroidism E05.90 Hypertension I10
[2022-12-25 22:41] VITALS: BP 116/58; PULSE 64; RESP 15; O2SAT 97
[2022-12-25 23:30] VITALS: BP 97/50; PULSE 51; RESP 14; O2SAT 100
[2022-12-26] VITALS (225 sets, daily range): BP systolic 88–173; BP diastolic 49–104; PULSE 46–74; RESP 12–25; TEMP 36.6–36.8; O2SAT 74–100; BMI 23.9
[2022-12-26 00:29] LABS: Procalcitonin 0.09 ng/mL (0-0.5)
[2022-12-26] MEDS: dextrose 5%-sod chloride 0.45% 1,000 ML 75 ML IV ×2 (02:12→17:51)
[2022-12-26] MEDS: potassium chloride premix 100 ML 25 MEQ IV (02:13)
[2022-12-26] MEDS: haloperidol inj 5 mg/mL INJ 1 mL IVP ×2 (02:34→05:32)
[2022-12-26 03:03] LABS: Basophils # 0.1 10^3/uL (0.0-0.1); Basophils % 0.7 %; Eosinophils # 0.3 10^3/uL (0.0-0.8); Eosinophils % 2.2 %; Hematocrit 37.6 % (37.0-47.0); Hemoglobin 12.2 g/dL (11.5-15.3); Lymphocytes # 3.7 10^3/uL (0.8-4.8); Lymphocytes % 30.7 %; Mean Corpuscular HGB Conc 32.4 g/dL (30.0-36.0); Mean Corpuscular Hemoglobin 27.2 pg (28.0-34.0); Mean Corpuscular Volume 83.7 fl (81-99); Mean Platelet Volume 9.7 fL (7.4-10.4); Monocytes # 1.1 10^3/uL (0.2-0.9); Monocytes % 8.6 %; Neutrophils # 6.99 10^3/uL (1.8-7.7); Neutrophils % 57.3 %; Nucleated Red Blood Cells % 0 %; Platelet Count 466 10^3/cmm (130-400); Red Blood Count 4.49 10^6/uL (4.1-5.3); Red Cell Distribution Width 18.2 % (12.1-15.1); White Blood Count 12.2 10^3/uL (4.0-10.0)
[2022-12-26 03:29] LABS: Alanine Aminotransferase 7 U/L (0-33); Alkaline Phosphatase 87 U/L (35-105); Aspartate Amino Transferase 15 U/L (0-32); Blood Urea Nitrogen 34 mg/dL (8-23); Calcium 8.8 mg/dL (8.5-10.5); Carbon Dioxide 23 mmol/L (22-29); Chloride 99 mmol/L (98-107); Globulin 2.1 g/dL (1.3-4.6); Glomerular Filtration Rate 24.6 mL/min (90-130); Glucose 93 mg/dL (65-115); Magnesium 2.1 mg/dL (1.7-2.3); Osmolality Calculated 289 mOsm/kg (285-295); Phosphorus 4.7 mg/dL (2.5-4.5); Sodium 136 mmol/L (136-145); Total Bilirubin 0.4 mg/dL (0.15-1.2); Total Protein 6.1 g/dL (6.6-8.7)
[2022-12-26 03:38] LABS: Anion Gap 17.5 (5-19); Potassium 3.5 mmol/L (3.5-5.1)
[2022-12-26 07:24] LABS: Vitamin B12 342 pg/mL (232-1245)
[2022-12-26 07:38] LABS: Glucose Point of Care 119 mg/dL (70-110)
--- NOTE | 2022-12-26 08:22 | PC.NURSE ---
Upon morning assessment, patient's vitals are within normal limits. Patient is confused, but calm. When asked where she is, [place], she does not answer any other orientation questions. Nurse observed that patient's linens were dry, and no urine output has been charted during living advisor. NUrse bladder scanned patient and it shows 437mL retained. Nurse Alerted physician.
[2022-12-26 08:56] LABS: Amphetamines Screen Urine Negative (Negative); Barbiturates Screen Urine Negative (Negative); Benzodiazepines Screen Urine Negative (Negative); Cocaine Screen Urine Negative (Negative); Opiate Screen Urine Positive (Negative); PCP Screen Urine Negative (Negative); THC Screen Urine Positive (Negative)
[2022-12-26] MEDS: haloperidol inj 5 mg/mL INJ 1 mL 3 MG IM (10:06)
--- NOTE | 2022-12-26 10:15 | PC.NURSE ---
At approximately 0945, patient started getting agitated. Trying to get out of bed so she can go home, however patient doesn't know where she is, unable to give name, date, or understand situation. SHe is attempting to pull out fontana catheter. Attempts are redirection have failed, received order from Dr ruiz to give one time dose of IM haldol.... See mar.
[2022-12-26] MEDS: haloperidol inj 5 mg/mL INJ 1 mL 2 MG IM (11:11)
--- NOTE | 2022-12-26 11:20 | PC.NURSE ---
Patient continues to get more agitated after the 3mg dose of haldol. Demands to talk to her and to leave. Nurse called the patient's yanet and gave phone to the patient thinking that talking to her may calm her. Patient only became more agitated after speaking to since he repeated what the nurses have said, which is that she is confused and not ready to come home and he will not pick her up. ANother 2mg of haldol given per dr ruiz orders.
--- NOTE | 2022-12-26 11:23 | PC.NURSE ---
Due to continued attempts to pull out fontana and risk of urethral damage, fontana catheter was removed. NUrse will conitnue to monitor urine out put and bladder scan. Will straight cath if necessary per Dr ruiz orders.
--- NOTE | 2022-12-26 12:00 | P.PN_ITS ---
Subjective Subjective: Not oriented. Does not give her name. Occasionally follows some directions. Denies being in pain. Vitals/I&O/Wt Last Vital Signs Temp 97.9 F 12/26/22 08:05 Pulse 48 L 12/26/22 08:10 Resp 19 H 12/26/22 08:10 BP 100/54 12/26/22 08:10 Pulse Ox 98 12/26/22 08:10 O2 Del Method 12/26/22 08:05 O2 Flow Rate 2 12/26/22 08:05 12/25/22 12/26/22 12/26/22 22:59 06:59 14:59 Intake Total 715.95 / 715.95 0 / 715.95 Output Total 600 / 600 Balance 715.95 / 715.95 0 / 715.95 -600 / -600 Weight last 48 hrs Weight 57.5 kg Weight 77 kg Physical Exam Const: COMMON NORMALS: alert; negative for patient oriented x3 EXAM LIMITATIONS: altered mental status and other limitations (following only some directions and inconsistently) GENERAL APPEARANCE: cooperative ORIENTATION/CONSCIOUSNESS: Yes confused OTHER: Somnolent, Wakes up to voice. Later agitated, pulling on lines and tubes. HENMT: COMMON NORMALS: oropharynx normal Neck/C-Spine: COMMON NORMALS: no JVD Resp: COMMON NORMALS: normal respiratory effort and clear to auscultation gerard aterally AUSCULTATION: clear to auscultation bilaterally Cardio: COMMON NORMALS: no JVD, regular rhythm, S1 normal heart sound present, S2 normal heart sound present and No murmurs present (Cardio) RHYTHM: regular rhythm HEART SOUNDS: S1 normal heart sound present and S2 normal heart sound present GI: COMMON NORMALS: Normal to inspection, nondistended, normoactive bowel sounds present, Soft to palpation and non-tender PALPATION: Yes Soft to palpation Extremity: COMMON NORMALS: no joint enlargement and no pedal edema Neuro: COMMON NORMALS: moves all extremities; negative for patient oriented x3 SENSORIUM/ORIENTATION: Yes alert OTHER: No tremor or rigidity Skin: COMMON NORMALS: no rashes or lesions noted GENERAL SKIN EXAM: no rashes or lesions noted Urinary Catheter Management: Orantes: Cath Placed During This Visit: yes Urinary Catheter Date of Insertion: 12/26/22 Urinary Catheter Time of Insertion: 10:12 Data 12/26/22 02:25 12/26/22 02:25 Micro: Microbiology 12/25/22 19:03 Blood Culture - Preliminary Blood SPECIMEN COLLECTED 12/25/22 18:50 Blood Culture - Preliminary Blood SPECIMEN COLLECTED A&P Assessment and plan (1) Altered mental status: Suspect secondary to acute toxic encephalopathy secondary to possibly a number of medications as she also has CALVIN. Unclear that she may have had overdose but certainly may have toxicity with reduced clearance. Medications include amitriptyline, opioid, she is also on Topamax. Requested Topamax level. Urine drug screen was positive for marijuana. Unclear if there could have been illicit admixture. Otherwise possibility of withdrawal from something else. I am told MRI could not be performed due to presence of intracerebral coil. Discussed with her RN. This morning very agitated required additional doses of Haldol. One-to-one sitter requested. Continue supportive care, continue to reorient. Severe potentially life-threatening encephalopathy with acute delirium as she continues to try to climb out of bed, pull on her devices, pulling out catheter. Orantes catheter having to be removed. Reviewed vitamin B12 and TSH Are Normal. Reviewed urine drug screen, positive for marijuana. Discussed also with her . He confirms that she smokes marijuana. He denies knowing that she use any other drugs. States that she keeps saying marijuana is a wonder drug. States that she normally gets it from her friend somewhere. Teleneurology evaluated, favored CT findings artifactual Hold home amitriptyline, hydrocodone, oxycodone, and topiramate for now She required additional Haldol continue to monitor on telemetry as best possible as she continues to remove the leads. denies that she had had any fever or headache. Denies any rashes. Denies known history of herpes. (2) CALVIN (acute kidney injury): Continue IV fluid challenge. Assess kidney ultrasound. Trend renal function (3) Hypokalemia: Received potassium replacement. Follow-up level. (4) COPD (chronic obstructive pulmonary disease): Not in acute exacerbation Qualifiers: COPD type: emphysema Emphysema type: centrilobular Qualified Code(s): J43.2 - Centrilobular emphysema (5) Malignant neoplasm of upper lobe, left bronchus or lung: Keep outpatient follow-up (6) Chronic migraine: On Emgality as outpatient (7) Hyperthyroidism: Continue methimazole (8) Hypertension: Continue lisinopril Plan DVT ppx: Lovenox Code status: Assume Full Code Attestations Medical Necessity Statement*: Continue admission for assessment management of acute encephalopathy with acute delirium, CALVIN. Critical Care Time: The high probability of a clinically significant, sudden or life threatening deterioration of the patient's neurologic system(s) required my full and direct attention, intervention and personal management. The critical care time is as shown. This time is in addition to time spent performing any reported procedures but includes the following: x Data and vital sign review and interpretation x Patient assessment, examination and intervention x Documentation x Medication orders and management Critical Care Time (min): 40 Coding Level of Care Code Critical Care >/= 30 minutes Critical care time (in minutes): 40 The high probability of a clinically significant, sudden or life threatening deterioration, as referenced in this documentation, required my full and direct attention, intervention and personal management. The critical care time shown is in addition to time spent performing any reported separately billable procedures and includes the following: [x] Data and vital sign review and interpretation [x ] Patient assessment, examination and intervention [x] Medication orders and management [x] Patient/Family updates as able [x] Care Coordination and Documentation. Exam Comprehensive Diagnoses Altered mental status R41.82 CALVIN (acute kidney injury) N17.9 Hypokalemia E87.6 COPD (chronic obstructive pulmonary disease) J43.2 COPD type: emphysema Emphysema type: centrilobular Malignant neoplasm of upper lobe, left bronchus or lung C34.12 Chronic migraine Hyperthyroidism E05.90 Hypertension I10
--- NOTE | 2022-12-26 12:20 | PC.NURSE ---
Patient's showed up to visit. Patient became extremely agitated by his presence, had to leave the unit.
--- NOTE | 2022-12-26 12:21 | US_ITS ---
WS: [id number] RENAL ULTRASOUND HISTORY: CALVIN COMPARISON: None available. TECHNIQUE: 2-D and color Doppler imaging of the kidney submitted. Right kidney: 9.3 cm x 3.8 cm x 4.1 cm. Normal echogenicity with no hydronephrosis or mass. Left kidney: No ultrasound performed of the LEFT kidney as the patient became combative and the study was terminated. US/US renal BI* [id number] IMPRESSION: 1. Normal RIGHT kidney. 2. LEFT kidney was not imaged as the patient became combative.
--- NOTE | 2022-12-26 15:09 | PC.NURSE ---
Patient does not allow blood pressure or continuous cardiac monitoring to be done. Pulse oximeter on foot records pulse as well, which has been sinus josé manuel to NS. Usually between 55-65 BPM all throughout the shift.
[2022-12-26] MEDS: enoxaparin 40 mg/0.4 mL Syringe SUBCUT (17:26)
[2022-12-26] MEDS: pantoprazole 40 mg SDV IVP (17:26)
--- NOTE | 2022-12-26 18:15 | PC.NURSE ---
SHift summary: Patient continues to be confused by end of shift, Can state her name only. Does not know where she is, the situation, or what year it is. Patient is very angry and evasive when answering questions. Early in the shift patient was very agitated requiring multiple doses of haldol. We considered having a sitter, but patient became calm shortly after sitter orders were put in. Orders left active if needed for night club manager. Patient briefly had a fontana, but it was discontinued due to patients repeated attempts to pull it out. Patient was bladder scanned at 1800 and it shows 137ml retained. Patients called and stopped by to visit the patient, his call and presence severely agitated the patient since he would not take her home. Patient kept pulling off cardiac monitoring throughout the shift, and rarely kept on her blood pressure cuff.
[2022-12-27] VITALS (241 sets, daily range): BP systolic 97–153; BP diastolic 52–90; PULSE 47–121; RESP 12–51; TEMP 36.7–37.1; O2SAT 90–100
[2022-12-27] MEDS: haloperidol inj 5 mg/mL INJ 1 mL IVP ×2 (03:13→04:54)
[2022-12-27 05:12] LABS: Basophils # 0.1 10^3/uL (0.0-0.1); Eosinophils # 0.4 10^3/uL (0.0-0.8); Eosinophils % 5.3 %; Hematocrit 33.6 % (37.0-47.0); Hemoglobin 10.6 g/dL (11.5-15.3); Lymphocytes # 2.9 10^3/uL (0.8-4.8); Lymphocytes % 34.3 %; Mean Corpuscular HGB Conc 31.5 g/dL (30.0-36.0); Mean Corpuscular Volume 85.5 fl (81-99); Mean Platelet Volume 9.5 fL (7.4-10.4); Monocytes # 0.7 10^3/uL (0.2-0.9); Monocytes % 8.8 %; Neutrophils # 4.19 10^3/uL (1.8-7.7); Neutrophils % 50.2 %; Nucleated Red Blood Cells % 0 %; Platelet Count 398 10^3/cmm (130-400); Red Blood Count 3.93 10^6/uL (4.1-5.3); Red Cell Distribution Width 18.6 % (12.1-15.1); White Blood Count 8.3 10^3/uL (4.0-10.0)
[2022-12-27 05:34] LABS: Alanine Aminotransferase < 5 U/L (0-33); Albumin Level 3.3 g/dL (3.5-5.2); Alkaline Phosphatase 73 U/L (35-105); Aspartate Amino Transferase 14 U/L (0-32); Blood Urea Nitrogen 18 mg/dL (8-23); Calcium 8.2 mg/dL (8.5-10.5); Carbon Dioxide 23 mmol/L (22-29); Chloride 107 mmol/L (98-107); Globulin 2.2 g/dL (1.3-4.6); Glomerular Filtration Rate 61.9 mL/min (90-130); Glucose 99 mg/dL (65-115); Osmolality Calculated 290 mOsm/kg (285-295); Sodium 139 mmol/L (136-145); Total Bilirubin 0.4 mg/dL (0.15-1.2); Total Protein 5.5 g/dL (6.6-8.7)
[2022-12-27] MEDS: pantoprazole 40 mg SDV IVP ×2 (05:40→17:45)
[2022-12-27 05:41] LABS: Anion Gap 12.5 (5-19); Potassium 3.5 mmol/L (3.5-5.1)
--- NOTE | 2022-12-27 10:04 | PC.NURSE ---
Orantes placed Orantes catheter placed per order. -Pt is still in two point soft wrist restraints. -Pt still hitting side rail and kicking the footboard. -1:1 sitter is outside of door in clear view of the pt. -It was noted that pt's left hand is swollen and has a purple bruise on top. Pt was asked if it hurt, pt stated, That isn't my hand. -Dr Guaman was notified.
--- NOTE | 2022-12-27 10:19 | PC.CHAP ---
Pastoral Care Encounter/Spiritual Assessment Type of Contact [] Declined imaging account manager visit [] Patient/Family/Request visit [] Outpatient visit [] Follow-up visit [] Physician referral [] Code/Alert [x] Routine visit [] Staff referral [] Actively dying [] Patient sleeping [] Family support [] [] Out of room [] Palliative care [] [] Receiving care in room [] Pre-surgical visit [] Trauma [] Long length of stay [x] ICU visit [x] Other: PT restrained and not currently in a social mood... setter outside room... Relational/Emotional Strength [] Patient feels connected with others/family/visitors/staff [] Distress [] Loneliness/isolation [] Abandonment Spirituality of Patient [] Person of Jina [] Attends [employer] of their Jina [] Believes in Prayer [] Reads Bible or Religion materials [] There are Spiritual issues to be addressed Site Damage Prevention Technician Interventions [x] Prayer [] Active listening [] Non-anxious presence [] Spiritual/emotional support [] Crisis/trauma care [] Spiritual counseling [] Bereavement support [] Provided bereavement packet [] Provided Bible/devotional materials [] Provided toy/stuffed animal, coloring book to patient or family member [] Provided Communion [] Anointing/[place] [] Salvation [x] Completed spiritual assessment [] Other: Impact on Illness or Injury [] Angry [] Fearful [] Anxious [] Often cries [] Exhaustion [] Unable to work [] Unable to attend synagogue [] Unable to walk/stand [] Unable to read [] Unable to drive [] Unable to eat/drink [] Unable to sleep [] Unable to be with family [] Patient intubated [] Other: Summary Time spent with patient
--- NOTE | 2022-12-27 10:30 | PC.NURSE ---
Pt punching right side rail hard enough to make her hand red. Side rail dropped down. 1:1 sitter still with pt.
[2022-12-27] MEDS: dexmedetomidine 400 MCG in sodium chloride 0.9% (100 ml) 100 ML 5.98 MCG IV ×2 (11:04→15:47)
--- NOTE | 2022-12-27 15:33 | XRR_ITS ---
PROCEDURE INFORMATION: Exam: XR Left Hand Exam date and time: 12/27/2022 3:56 PM Age: 72 years old Clinical indication: Injury or trauma; Other: Hitting against bedrail; Blunt trauma (contusions or hematomas); Hand; Left; Patient HX: History of lung cancer; Additional info: Swelling, bruise after hitting against bedrail TECHNIQUE: Imaging protocol: Radiologic exam of the Left hand. Views: 3 or more views. COMPARISON: No relevant prior studies available. FINDINGS: Bones/joints: Mild degenerative changes 1st carpometacarpal articulation. 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 No fracture, dislocation or other malalignment. Soft tissues: Mild soft tissue swelling adjacent to the distal head of the ulna. XR/XR hand LT min 3V* [id number] IMPRESSION: No acute bony abnormalities.
[2022-12-27] MEDS: enoxaparin 40 mg/0.4 mL Syringe SUBCUT (17:45)
[2022-12-27] MEDS: dextrose 5%-sod chloride 0.45% 1,000 ML 75 ML IV (17:47)
--- NOTE | 2022-12-27 20:02 | P.PN_ITS ---
Subjective Subjective: Overnight had a difficult night, very restless and agitated. Received additional 5 mg Haldol. This morning still restless, to be started on Precedex drip. Today she is doing slightly better. She is able to tell me her name. She tells me the month but not the year. He is not able to provide m edical history or other information. Gets confused easily. Vitals/I&O/Wt Last Vital Signs Temp 98.7 F 12/27/22 12:00 Pulse 78 12/27/22 16:45 Resp 17 12/27/22 16:45 BP 104/64 12/27/22 12:00 Pulse Ox 97 12/27/22 16:45 O2 Del Method 12/26/22 08:05 O2 Flow Rate 4 12/27/22 19:48 12/27/22 12/27/22 12/27/22 06:59 14:59 22:59 Intake Total 112 / 1224 1000 / 1000 165.521 / 1165.521 Output Total 600 / 600 900 / 1500 Balance 112 / 624 400 / 400 -734.479 / -334.479 Weight last 48 hrs Weight 57.5 kg Physical Exam Const: COMMON NORMALS: alert; negative for patient oriented x3 EXAM LIMITATIONS: altered mental status and other limitations (following only some directions and inconsistently) GENERAL APPEARANCE: cooperative ORIENTATION/CONSCIOUSNESS: Yes confused OTHER: Confused HENMT: COMMON NORMALS: oropharynx normal Neck/C-Spine: COMMON NORMALS: no JVD Resp: COMMON NORMALS: normal respiratory effort and clear to auscultation bilaterally AUSCULTATION: clear to auscultation bilaterally Cardio: COMMON NORMALS: no JVD, regular rhythm, S1 normal heart sound present, S2 normal heart sound present and No murmurs present (Cardio) RHYTHM: regular rhythm HEART SOUNDS: S1 normal heart sound present and S2 normal heart sound present GI: COMMON NORMALS: Normal to inspection, nondistended, normoactive bowel sounds present, Soft to palpation and non-tender PALPATION: Yes Soft to palpation Extremity: COMMON NORMALS: no joint enlargement and no pedal edema OTHER: Moderate swelling on dorsal lateral surface of the left hand with faint large bruise. Finger flexion, extension without pain. Able to move all fingers. Neuro: COMMON NORMALS: moves all extremities; negative for patient oriented x3 SENSORIUM/ORIENTATION: Yes alert OTHER: No tremor or rigidity Skin: COMMON NORMALS: no rashes or lesions noted GENERAL SKIN EXAM: no rashes or lesions noted Urinary Catheter Management: Orantes: Cath Placed During This Visit: yes Urinary Catheter Date of Insertion: 12/26/22 Urinary Catheter Time of Insertion: 10:12 Data 12/27/22 04:22 12/27/22 04:22 Micro: Microbiology 12/26/22 09:35 Urine Culture - Preliminary Urine Catheterized 12/25/22 19:03 Blood Culture - Preliminary Blood NEGATIVE TO DATE 12/25/22 18:50 Blood Culture - Preliminary Blood NEGATIVE TO DATE A&P Assessment and plan (1) Altered mental status: Had a very difficult night and morning. Overnight required additional Haldol 5 mg. This morning still agitated, had to be started on Precedex drip. With Precedex subsequently appears to be doing slightly better. He is able to tell me her name, the month. Slight improvement. Continue supportive care, continue Precedex, wean off as tolerating. CALVIN with improvement. With suspected toxic effect of medication should hopefully continue to improve with regards to mental status. Otherwise possibly toxic effect from illicit admixture to marijuana or possibly another substance withdrawal. Suspect secondary to acute toxic encephalopathy secondary to possibly a number of medications as she also has CALVIN. Unclear that she may have had overdose but certainly may have toxicity with reduced clearance. Medications include amitriptyline, opioid, she is also on Topamax. Requested Topamax level. Urine drug screen was positive for marijuana. Unclear if there could have been illicit admixture. Otherwise possibility of withdrawal from something else. MRI could not be performed due to presence of intracerebral coil. Vitamin B12 and TSH Are Normal. Reviewed urine drug screen, positive for marijuana. Discussed also with her . He confirms that she smokes marijuana. He denies knowing that she use any other drugs. States that she keeps saying marijuana is a wonder drug. States that she normally gets it from her friend somewhere. Teleneurology evaluated, favored CT findings artifactual Hold home amitriptyline, hydrocodone, oxycodone, and topiramate for now She required additional Haldol continue to monitor on telemetry as best possible as she continues to remove the leads. denies that she had had any fever or headache. Denies any rashes. Denies known history of herpes. (2) CALVIN (acute kidney injury): Reviewed chemistry, renal function appears to have now normalized. If mental status continues to improve consider trial of oral diet. For now continue IV fluid challenge. Reviewed results of kidney ultrasound. Only partial resolved, left kidney was not imaged as patient became combative. Normal right kidney. Recheck renal function (3) Hypokalemia: Received potassium replacement. Potassium level reviewed, 3.5. Wait to recheck again replace if needed. (4) COPD (chronic obstructive pulmonary disease): Not in acute exacerbation Qualifiers: COPD type: emphysema Emphysema type: centrilobular Qualified Code(s): J43.2 - Centrilobular emphysema (5) Malignant neoplasm of upper lobe, left bronchus or lung: Keep outpatient follow-up (6) Chronic migraine: On Emgality as outpatient (7) Hyperthyroidism: Continue methimazole (8) Hypertension: Continue lisinopril Plan Overnight while agitated reportedly had hit her hand on the handrail. Allows herself to be examined, some swelling, mild bruising at the dorsal lateral hand surface, no pain on finger flexion, extension, requested x-ray. DVT ppx: Lovenox Code status: Assume Full Code Attestations Medical Necessity Statement*: Continue admission for assessment management of acute encephalopathy with delirium, severe agitation. Coding Level of Care Code Critical Care >/= 30 minutes Critical care time (in minutes): 35 The high probability of a clinically significant, sudden or life threatening deterioration, as referenced in this documentation, required my full and direct attention, intervention and personal management. The critical care time shown is in addition to time spent performing any reported separately billable procedures and includes the following: [x] Data and vital sign review and interpretation [x ] Patient assessment, examination and intervention [x] Medication orders and management [x] Patient/Family updates as able [x] Care Coordination and Documentation. Diagnoses Altered mental status R41.82 CALVIN (acute kidney injury) N17.9 Hypokalemia E87.6 COPD (chronic obstructive pulmonary disease) J43.2 COPD type: emphysema Emphysema type: centrilobular Malignant neoplasm of upper lobe, left bronchus or lung C34.12 Chronic migraine Hyperthyroidism E05.90 Hypertension I10
[2022-12-27] MEDS: dexmedetomidine 400 MCG in sodium chloride 0.9% (100 ml) 100 ML 8.97 MCG IV (20:55)
[2022-12-28] VITALS (170 sets, daily range): BP systolic 91–173; BP diastolic 61–125; PULSE 42–96; RESP 12–37; TEMP 37; O2SAT 92–100
[2022-12-28] MEDS: dextrose 5%-sod chloride 0.45% 1,000 ML 75 ML IV ×3 (00:55→22:22)
[2022-12-28 03:40] LABS: Basophils # 0.1 10^3/uL (0.0-0.1); Basophils % 0.5 %; Eosinophils # 0.3 10^3/uL (0.0-0.8); Eosinophils % 2.4 %; Hematocrit 36.9 % (37.0-47.0); Hemoglobin 11.5 g/dL (11.5-15.3); Lymphocytes # 2.4 10^3/uL (0.8-4.8); Lymphocytes % 20.5 %; Mean Corpuscular HGB Conc 31.2 g/dL (30.0-36.0); Mean Corpuscular Hemoglobin 26.9 pg (28.0-34.0); Mean Corpuscular Volume 86.2 fl (81-99); Mean Platelet Volume 9.4 fL (7.4-10.4); Monocytes # 1.2 10^3/uL (0.2-0.9); Monocytes % 10.6 %; Neutrophils # 7.67 10^3/uL (1.8-7.7); Neutrophils % 65.7 %; Nucleated Red Blood Cells % 0 %; Platelet Count 420 10^3/cmm (130-400); Red Blood Count 4.28 10^6/uL (4.1-5.3); Red Cell Distribution Width 18.6 % (12.1-15.1); White Blood Count 11.7 10^3/uL (4.0-10.0)
[2022-12-28 03:50] LABS: Alanine Aminotransferase 6 U/L (0-33); Albumin Level 3.5 g/dL (3.5-5.2); Alkaline Phosphatase 80 U/L (35-105); Anion Gap 13.5 (5-19); Aspartate Amino Transferase 14 U/L (0-32); Blood Urea Nitrogen 18 mg/dL (8-23); Calcium 8.4 mg/dL (8.5-10.5); Carbon Dioxide 23 mmol/L (22-29); Chloride 109 mmol/L (98-107); Globulin 2.3 g/dL (1.3-4.6); Glomerular Filtration Rate 44.4 mL/min (90-130); Glucose 141 mg/dL (65-115); Osmolality Calculated 298 mOsm/kg (285-295); Potassium 3.5 mmol/L (3.5-5.1); Sodium 142 mmol/L (136-145); Total Bilirubin 0.4 mg/dL (0.15-1.2); Total Protein 5.8 g/dL (6.6-8.7)
[2022-12-28] MEDS: pantoprazole 40 mg SDV IVP ×2 (05:25→17:20)
[2022-12-28] MEDS: dexmedetomidine 400 MCG in sodium chloride 0.9% (100 ml) 100 ML 8.97 MCG IV (07:32)
[2022-12-28] MEDS: polyethylene glycol 3350 Pkt 17 gm PO (08:27)
[2022-12-28] MEDS: methIMAzole 5 MG Tablet 2.5 MG PO (08:27)
--- NOTE | 2022-12-28 12:08 | PC.NURSE ---
Patient currently confused and increasingly agitated. Patient significant other at bedside. Dr. Guaman notified.
--- NOTE | 2022-12-28 12:19 | PC.NURSE ---
Patient belongings: Patient ring, silver in color with hope inscribed on inside of ring, two heart bracelet/necklace, silver in color placed in plastic bag with patient label- given to at bedside. Patient home medications placed in a large plastic bag and also given to to take home. agreed to bring items home and placed jewelry in coat pocket, medications in his possession at this time.
[2022-12-28] MEDS: enoxaparin 40 mg/0.4 mL Syringe SUBCUT (17:20)
[2022-12-28] MEDS: clopidogrel 75 mg Tablet PO (19:35)
--- NOTE | 2022-12-28 19:52 | P.PN_ITS ---
Subjective Subjective: She denies pain. She is able to state her name. The patient does not remember the year. Earlier this morning still some restlessness, agitation, still required Precedex, but afterwards weaning off. Transient agitation in the afternoon, but was able to be redirected. Vitals/I&O/Wt Last Vital Signs Temp 98.6 F 12/28/22 07:30 Pulse 86 12/28/22 16:05 Resp 19 H 12/28/22 16:05 BP 153/93 12/28/22 16:05 Pulse Ox 99 12/28/22 16:05 O2 Del Method 12/28/22 16:05 O2 Flow Rate 2 12/28/22 12:30 12/28/22 12/28/22 12/28/22 06:59 14:59 22:59 Intake Total 1000 / 2173.594 786.514 / 786.514 472 / 1258.514 Output Total 800 / 2300 400 / 400 700 / 1100 Balance 200 / -126.406 386.514 / 386.514 -228 / 158.514 Physical Exam Const: COMMON NORMALS: alert; negative for patient oriented x3 EXAM LIMITATIONS: altered mental status and other limitations (following only some directions and inconsistently) GENERAL APPEARANCE: cooperative ORIENTATION/CONSCIOUSNESS: Yes confused OTHER: Confused HENMT: COMMON NORMALS: oropharynx normal Neck/C-Spine: COMMON NORMALS: no JVD Resp: COMMON NORMALS: normal respiratory effort and clear to auscultation bilaterally AUSCULTATION: clear to auscultation bilaterally Cardio: COMMON NORMALS: no JVD, regular rhythm, S1 normal heart sound present, S2 normal heart sound present and No murmurs present (Cardio) RHYTHM: regular rhythm HEART SOUNDS: S1 normal heart sound present and S2 normal heart sound present GI: COMMON NORMALS: Normal to inspection, nondistended, normoactive bowel sounds present, Soft to palpation and non-tender PALPATION: Yes Soft to palpation Extremity: COMMON NORMALS: no joint enlargement and no pedal edema OTHER: Moderate swelling on dorsal lateral surface of the left hand with faint large bruise. Finger flexion, extension without pain. Able to move all fingers. Neuro: COMMON NORMALS: moves all extremities; negative for patient oriented x3 SENSORIUM/ORIENTATION: Yes alert OTHER: No tremor or rigidity Skin: COMMON NORMALS: no rashes or lesions noted GENERAL SKIN EXAM: no rashes or lesions noted Urinary Catheter Management: Orantes: Cath Placed During This Visit: yes Urinary Catheter Date of Insertion: 12/26/22 Urinary Catheter Time of Insertion: 10:12 Data 12/28/22 02:55 12/28/22 02:55 Micro: Microbiology 12/26/22 09:35 Urine Culture - Final Urine Catheterized A&P Assessment and plan (1) Altered mental status: Overall with improvement, certainly the longer periods of calm, cooperative, still episodes of agitation, still confused, able to state her name now, today not oriented to time or place. Today vitals noted, bradycardic, soft blood pressure. Discussed with her nurse. Wean off Precedex, discontinued one-to-one sitter, in case continues to do well without further episodes of severe agitation, may be able to resume care on the medical floor. Monitor in ICU for now with discontinuation of pressors, intermittent severe agitation, risk of self-harm. Renal function reviewed slightly worse again today 1.2 creatinine. Follow-up renal function requested. With suspected toxic effect of medication should hopefully continue to improve with regards to mental status. Otherwise possibly toxic effect from illicit admixture to marijuana or possibly another substance withdrawal. Topiramate level requested, but still pending. Suspect secondary to acute toxic encephalopathy secondary to possibly a number of medications as she also has CALVIN. Unclear that she may have had overdose but certainly may have toxicity with reduced clearance. Medications include amitriptyline, opioid, she is also on Topamax. Requested Topamax level. Urine drug screen was positive for marijuana. Unclear if there could have been illicit admixture. Otherwise possibility of withdrawal from something else. MRI could not be performed due to presence of intracerebral coil. Vitamin B12 and TSH Are Normal. Reviewed urine drug screen, positive for marijuana. Discussed also with her . He confirms that she smokes marijuana. He denies knowing that she use any other drugs. States that she keeps saying marijuana is a wonder drug. States that she normally gets it from her friend somewhere. Teleneurology evaluated, favored CT findings artifactual Hold home amitriptyline, hydrocodone, oxycodone, and topiramate for now denied that she had had any fever or headache. Denies any rashes. Denies known history of herpes. (2) CALVIN (acute kidney injury): Renal function slightly worse today. Creatinine up to 1.2. Has done well with medications, mental status better. Trial of clear liquids. Hold lisinopril. Reviewed chemistry, renal function appears to have now normalized. If mental status continues to improve consider trial of oral diet. For now continue IV fluid challenge. Reviewed results of kidney ultrasound. Only partial resolved, left kidney was not imaged as patient became combative. Normal right kidney. Recheck renal function (3) Hypokalemia: Received potassium replacement. Potassium level reviewed, 3.5. Wait to recheck again replace if needed. (4) COPD (chronic obstructive pulmonary disease): Not in acute exacerbation Qualifiers: COPD type: emphysema Emphysema type: centrilobular Qualified Code(s): J43.2 - Centrilobular emphysema (5) Malignant neoplasm of upper lobe, left bronchus or lung: Keep outpatient follow-up (6) Chronic migraine: On Emgality as outpatient (7) Hyperthyroidism: Continue methimazole (8) Hypertension: Hold lisinopril due to CALVIN. Hold atenolol due to bradycardia. Plan Left hand injury against the bed rail: X-ray imaging reviewed, no fracture. DVT ppx: Lovenox Code status: Assume Full Code Attestations Medical Necessity Statement*: Continue admission for assessment management of acute encephalopathy with delirium and agitation, with risk of self-harm. Coding Level of Care Code Critical Care >/= 30 minutes Critical care time (in minutes): 35 The high probability of a clinically significant, sudden or life threatening deterioration, as referenced in this documentation, required my full and direct attention, intervention and personal management. The critical care time shown is in addition to time spent performing any reported separately billable procedures and includes the following: [x] Data and vital sign review and interpretation [x ] Patient assessment, examination and intervention [x] Medication orders and management [x] Patient/Family updates as able [x] Care Coordination and Documentation. Diagnoses Altered mental status R41.82 CALVIN (acute kidney injury) N17.9 Hypokalemia E87.6 COPD (chronic obstructive pulmonary disease) J43.2 COPD type: emphysema Emphysema type: centrilobular Malignant neoplasm of upper lobe, left bronchus or lung C34.12 Chronic migraine Hyperthyroidism E05.90 Hypertension I10
--- NOTE | 2022-12-28 22:40 | PC.NURSE ---
Blood Pressure Patient's blood pressure 161/125 at 2230 with an increasing trend in recent blood pressures. Dr. Cisneros on unit and order received for 5 mg hydralazine IVP Q4H for SBP>180. Diastolic pressure 125; order verified with Dr. Cisneros that hydralazine is only to be gave with a systolic pressure >180, no parameter received for diastolic pressures.
[2022-12-29] VITALS (47 sets, daily range): BP systolic 137–195; BP diastolic 77–156; PULSE 70–181; RESP 13–33; TEMP 36.8–37.1; O2SAT 86–100; BMI 24.5
[2022-12-29] MEDS: ALPRAZolam 0.5 mg Tablet 0.25 MG PO (02:41)
--- NOTE | 2022-12-29 02:45 | PC.NURSE ---
Anxiety At around 0100, patient appeared very anxious with a RR in the mid 20s and a HR in the 120s. Patient was crying and stating I just can't sleep, I don't know why. This has never happened before. I just can't sleep. Verbal deescalation provided through breathing instruction and patient able to calm her RR to 20, HR down to mid 90s; however, patient still very concerned that she will be unable to rest. Dr. Cisneros contacted and order received to restart precedex. Patient unable to tolerate precedex due to bradycardia when utilized previously. Dr. Cisneros contacted again at 0210 and order received for 0.25 mg xanax PO once. Medication administered per JAN.
[2022-12-29] MEDS: pantoprazole 40 mg SDV IVP ×2 (05:11→17:42)
[2022-12-29 06:11] LABS: Basophils # 0.1 10^3/uL (0.0-0.1); Basophils % 0.8 %; Eosinophils # 0.4 10^3/uL (0.0-0.8); Eosinophils % 4.4 %; Hematocrit 33.6 % (37.0-47.0); Hemoglobin 10.6 g/dL (11.5-15.3); Lymphocytes # 2.8 10^3/uL (0.8-4.8); Lymphocytes % 28.3 %; Mean Corpuscular HGB Conc 31.5 g/dL (30.0-36.0); Mean Corpuscular Hemoglobin 26.8 pg (28.0-34.0); Mean Corpuscular Volume 85.1 fl (81-99); Mean Platelet Volume 9.6 fL (7.4-10.4); Monocytes % 9.8 %; Neutrophils % 56.5 %; Nucleated Red Blood Cells % 0 %; Platelet Count 359 10^3/cmm (130-400); Red Blood Count 3.95 10^6/uL (4.1-5.3); Red Cell Distribution Width 18.6 % (12.1-15.1); White Blood Count 9.7 10^3/uL (4.0-10.0)
[2022-12-29 06:29] LABS: Alanine Aminotransferase < 5 U/L (0-33); Albumin Level 3.4 g/dL (3.5-5.2); Alkaline Phosphatase 74 U/L (35-105); Anion Gap 12.2 (5-19); Aspartate Amino Transferase 16 U/L (0-32); Blood Urea Nitrogen 13 mg/dL (8-23); Calcium 8.4 mg/dL (8.5-10.5); Carbon Dioxide 23 mmol/L (22-29); Chloride 109 mmol/L (98-107); Globulin 2.1 g/dL (1.3-4.6); Glomerular Filtration Rate 24.6 mL/min (90-130); Glucose 124 mg/dL (65-115); Osmolality Calculated 294 mOsm/kg (285-295); Potassium 3.2 mmol/L (3.5-5.1); Sodium 141 mmol/L (136-145); Total Bilirubin 0.3 mg/dL (0.15-1.2); Total Protein 5.5 g/dL (6.6-8.7)
[2022-12-29] MEDS: dextrose 5%-sod chloride 0.45% 1,000 ML 75 ML IV (08:08)
[2022-12-29] MEDS: methIMAzole 5 MG Tablet 2.5 MG PO (08:08)
[2022-12-29] MEDS: hyDRALAzine 20 mg/mL INJ 1 mL 5 MG IVP ×3 (08:29→23:39)
[2022-12-29] MEDS: atenolol 50 mg Tablet 25 MG PO (09:04)
--- NOTE | 2022-12-29 09:10 | ECG_ITS ---
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 Measurements Intervals [place] Rate: 153 P: 0 [place]: 0 QRS: 64 QRSD: 82 T: 266 QT: 219 QTc: 349 Interpretive Statements ATRIAL FIBRILLATION WITH RAPID VENTRICULAR RESPONSE ST DEVIATION AND MODERATE T-WAVE ABNORMALITY, CONSIDER INFERIOR ISCHEMIA [-0.1+ mV T-WAVE IN II/aVF] CRITICAL TEST RESULT Compared to ECG 12/25/2022 18:45:40 Sinus bradycardia no longer present T-wave abnormality still present Possible ischemia still present Electronically Signed On 12-30-2022 7:57:20 EYEDOTTER by Lashonda Brantley M.D. [id number]
[2022-12-29] MEDS: metoprolol tartrate 1 mg/1 mL SDV 5 mL 5 MG IVP (09:45)
[2022-12-29] MEDS: lidocaine 1% 5 ML in potassium chloride premix 100 ML 26.25 ML IV (09:52)
[2022-12-29 09:54] LABS: Magnesium 1.7 mg/dL (1.7-2.3)
[2022-12-29 11:06] LABS: Urine Creatinine 12 mg/dL (28-217); Urine Random Sodium 97 mmol/L
[2022-12-29] MEDS: enoxaparin 30 mg/0.3 mL Syringe SUBCUT (17:42)
[2022-12-29] MEDS: clopidogrel 75 mg Tablet PO (19:29)
--- NOTE | 2022-12-29 20:25 | P.PN_ITS ---
Subjective Subjective: This morning heart rate in 150s, spiking to 190s. She denies chest pain. Not short of breath. Maintaining blood pressure. She otherwise appears more alert and is telling me that she is overall doing better. States she could not sleep well last night. Vitals/I&O/Wt Last Vital Signs Temp 98.7 F 12/29/22 16:00 Pulse 79 12/29/22 20:00 Resp 25 H 12/29/22 18:30 BP 167/106 12/29/22 18:30 Pulse Ox 99 12/29/22 20:00 O2 Del Method 12/29/22 20:00 O2 Flow Rate 2 12/29/22 20:00 12/29/22 12/29/22 12/29/22 06:59 14:59 22:59 Intake Total 112 / 2490.514 1797.5 / 1797.5 592 / 2389.5 Output Total 1650 / 2750 1700 / 1700 850 / 2550 Balance -1538 / -259.486 97.5 / 97.5 -258 / -160.5 Weight last 48 hrs Weight 58.861 kg Physical Exam Const: COMMON NORMALS: alert; negative for patient oriented x3 EXAM LIMITATIONS: altered mental status and other limitations (following only some directions and inconsistently) GENERAL APPEARANCE: cooperative ORIENTATION/CONSCIOUSNESS: Yes confused OTHER: Today appears more lucid. He is able to give me some review of systems. HENMT: COMMON NORMALS: oropharynx normal Neck/C-Spine: COMMON NORMALS: no JVD Resp: COMMON NORMALS: normal respiratory effort and clear to auscultation bilaterally AUSCULTATION: clear to auscultation bilaterally Cardio: COMMON NORMALS: no JVD, regular rhythm, S1 normal heart sound present, S2 normal heart sound present and No murmurs present (Cardio) RHYTHM: regular rhythm HEART SOUNDS: S1 normal heart sound present and S2 normal heart sound present GI: COMMON NORMALS: Normal to inspection, nondistended, normoactive bowel sounds present, Soft to palpation and non-tender PALPATION: Yes Soft to palpation Extremity: COMMON NORMALS: no joint enlargement and no pedal edema OTHER: Moderate swelling on dorsal lateral surface of the left hand with faint large bruise. Finger flexion, extension without pain. Able to move all fingers. Neuro: COMMON NORMALS: moves all extremities; negative for patient oriented x3 SENSORIUM/ORIENTATION: Yes alert OTHER: No tremor or rigidity Skin: COMMON NORMALS: no rashes or lesions noted GENERAL SKIN EXAM: no rashes or lesions noted Urinary Catheter Management: Orantes: Cath Placed During This Visit: yes Urinary Catheter Date of Insertion: 12/26/22 Urinary Catheter Time of Insertion: 10:12 Data 12/29/22 05:53 12/29/22 05:53 A&P Assessment and plan (1) Altered mental status: Continues to slowly improve. Today she is able to give me some review of systems. Her morning complicated by A-fib with RVR, heart rates up as high as 190s at times. Advance diet. Continue supportive care. Vital signs again reviewed this evening. De-escalate care level to CSU. Overall with improvement, certainly the longer periods of calm, cooperative, still episodes of agitation, still confused, able to state her name now, today not oriented to time or place. Today vitals noted, bradycardic, soft blood pressure. Discussed with her nurse. Wean off Precedex, discontinued one-to-one sitter, in case continues to do well without further episodes of severe agitation, may be able to resume care on the medical floor. Worsening renal function reviewed slightly worse again today 2 creatinine. Requested bladder scan since she could not maintain Orantes. Follow-up renal function requested. With suspected toxic effect of medication should hopefully continue to improve with regards to mental status. Otherwise possibly toxic effect from illicit admixture to marijuana or possibly another substance withdrawal. Topiramate level requested, but still pending. Suspect secondary to acute toxic encephalopathy secondary to possibly a number of medications as she also has CALVIN. Unclear that she may have had overdose but certainly may have toxicity with reduced clearance. Medications include amitriptyline, opioid, she is also on Topamax. Requested Topamax level. Urine drug screen was positive for marijuana. Unclear if there could have been illicit admixture. Otherwise possibility of withdrawal from something else. MRI could not be performed due to presence of intracerebral coil. Vitamin B12 and TSH Are Normal. Reviewed urine drug screen, positive for marijuana. Discussed also with her . He confirms that she smokes marijuana. He denies knowing that she use any other drugs. States that she keeps saying marijuana is a wonder drug. States that she normally gets it from her friend somewhere. Teleneurology evaluated, favored CT findings artifactual Hold home amitriptyline, hydrocodone, oxycodone, and topiramate for now denied that she had had any fever or headache. Denies any rashes. Denies known history of herpes. (2) Paroxysmal atrial fibrillation with RVR: Heart rates up to 190s this morning. Discussed with her RN. Adenosine reviewed for narrow complex tachycardia. She denies chest pain or pressure. Not hypote nsive. However, on rhythm strip, twelve-lead per my review irregular narrow complex tachycardia, atrial fibrillation. Given 5 mg IV metoprolol. Heart rates with improvement. Resumed atenolol 25 mg twice daily. At risk of CVA. Currently at risk of fall/injury, bleeding. If encephalopathy resolves and these risks resolved, consideration may be given to anticoagulation to reduce risk of stroke. (3) CALVIN (acute kidney injury): Creatinine reviewed noted worsening renal function today, creatinine up to 2. Requested bladder scan. Hold lisinopril. Follow-up renal function requested. If mental status continues to improve consider trial of oral diet. For now continue IV fluid challenge. Reviewed results of kidney ultrasound. Only partial resolved, left kidney was not imaged as patient became combative. Normal right kidney. (4) Hypokalemia: Given replacement. Magnesium check requested, reviewed, 1.7. Give magnesium replacement. Follow-up potassium requested. (5) COPD (chronic obstructive pulmonary disease): Not in acute exacerbation Qualifiers: COPD type: emphysema Emphysema type: centrilobular Qualified Code(s): J43.2 - Centrilobular emphysema (6) Malignant neoplasm of upper lobe, left bronchus or lung: Keep outpatient follow-up (7) Chronic migraine: On Emgality as outpatient (8) Hyperthyroidism: Continue methimazole (9) Hypertension: Hold lisinopril due to CALVIN. Resumed atenolol at smaller dose today due to tachycardia, previously with bradycardia. Plan Left hand injury against the bed rail: X-ray imaging reviewed, no fracture. DVT ppx: Lovenox Code status: Assume Full Code Attestations Medical Necessity Statement*: Continue admission for assessment management of acute encephalopathy, optimization of control of A-fib with RVR, CALVIN Coding Level of Care Code Critical Care >/= 30 minutes Critical care time (in minutes): 35 The high probability of a clinically significant, sudden or life threatening deterioration, as referenced in this documentation, required my full and direct attention, intervention and personal management. The critical care time shown is in addition to time spent performing any reported separately billable procedures and includes the following: [x] Data and vital sign review and interpretation [x ] Patient assessment, examination and intervention [x] Medication orders and management [x] Patient/Family updates as able [x] Care Coordination and Documentation. Diagnoses Altered mental status R41.82 Paroxysmal atrial fibrillation with RVR I48.0 CALVIN (acute kidney injury) N17.9 Hypokalemia E87.6 COPD (chronic obstructive pulmonary disease) J43.2 COPD type: emphysema Emphysema type: centrilobular Malignant neoplasm of upper lobe, left bronchus or lung C34.12 Chronic migraine Hyperthyroidism E05.90 Hypertension I10
[2022-12-29] MEDS: magnesium sulfate premix 2 GM/50 ML PIGGYBACK IV (22:24)
--- NOTE | 2022-12-29 23:19 | PC.NURSE ---
Transfer Patient transferred to C[facility] bed 112-2 via wheelchair. All belongings with patient at time of transfer; receiving nurse at bedside. Attempt made to call and notify Gary with no success, not able to leave message with phone number available. Receiving nurse aware of attempt to let family know.
[2022-12-30] VITALS (9 sets, daily range): BP systolic 93–183; BP diastolic 68–98; PULSE 74–107; RESP 16–18; TEMP 36.7–36.9; O2SAT 93–98
[2022-12-30] MEDS: dextrose 5%-sod chloride 0.45% 1,000 ML 75 ML IV (00:51)
--- NOTE | 2022-12-30 01:06 | PC.NURSE ---
Patient c/o headache. Acetamnophen offered and declined by patiet.
[2022-12-30] MEDS: acetaminophen 325 mg Tablet 650 MG PO ×2 (01:28→07:43)
[2022-12-30] MEDS: pantoprazole 40 mg SDV IVP (05:23)
[2022-12-30 06:59] LABS: Basophils # 0.1 10^3/uL (0.0-0.1); Eosinophils # 0.5 10^3/uL (0.0-0.8); Eosinophils % 4.5 %; Hematocrit 35.3 % (37.0-47.0); Hemoglobin 11.2 g/dL (11.5-15.3); Lymphocytes # 3.1 10^3/uL (0.8-4.8); Lymphocytes % 29.4 %; Mean Corpuscular HGB Conc 31.7 g/dL (30.0-36.0); Mean Corpuscular Hemoglobin 26.9 pg (28.0-34.0); Mean Corpuscular Volume 84.9 fl (81-99); Mean Platelet Volume 9.4 fL (7.4-10.4); Monocytes # 0.9 10^3/uL (0.2-0.9); Monocytes % 8.7 %; Neutrophils # 5.84 10^3/uL (1.8-7.7); Neutrophils % 56.1 %; Nucleated Red Blood Cells % 0 %; Platelet Count 396 10^3/cmm (130-400); Red Blood Count 4.16 10^6/uL (4.1-5.3); Red Cell Distribution Width 18.9 % (12.1-15.1); White Blood Count 10.4 10^3/uL (4.0-10.0)
[2022-12-30 07:15] LABS: Anion Gap 11.3 (5-19); Blood Urea Nitrogen 10 mg/dL (8-23); Calcium 9.3 mg/dL (8.5-10.5); Carbon Dioxide 26 mmol/L (22-29); Chloride 107 mmol/L (98-107); Glomerular Filtration Rate 29.7 mL/min (90-130); Glucose 120 mg/dL (65-115); Osmolality Calculated 292 mOsm/kg (285-295); Potassium 3.3 mmol/L (3.5-5.1); Sodium 141 mmol/L (136-145)
[2022-12-30] MEDS: polyethylene glycol 3350 Pkt 17 gm PO (07:42)
[2022-12-30] MEDS: atenolol 50 mg Tablet 25 MG PO (07:42)
[2022-12-30] MEDS: methIMAzole 5 MG Tablet 2.5 MG PO (07:44)
[2022-12-30] MEDS: potassium chloride ER 20 mEq Tablet 40 MEQ PO (08:18)
[2022-12-30] MEDS: TRAMadol 50 mg Tablet PO (10:55)
[2022-12-30] MEDS: amlodipine 10 mg Tablet PO (10:55)
--- NOTE | 2022-12-30 11:50 | PC.SOCIAL ---
IMM update IMM updated with patient and . Copy pg 2 provided. Verbalized an understanding. Initialled, dated, timed, and placed in chart.
--- NOTE | 2022-12-30 12:20 | PC.NURSE ---
pt's blood pressure on the right arm was 167/106 and retook on the left arm and blood pressure was 183/98 the primary nurse was notified
--- NOTE | 2022-12-30 13:31 | PM.DCS ---
Discharge Providers Date of Admission: 12/27/22 15:32 Date of Discharge: December 30, 2022 Attending Provider at Admission: Mekhi Dhaliwal MD Attending Provider at Discharge: Eduardo Guaman Primary Care Provider: Maria Emery MD Diagnoses at Discharge Discharge Diagnosis (1) Altered mental status: Status: Acute (2) Paroxysmal atrial fibrillation with RVR: Status: Acute (3) CALVIN (acute kidney injury): Status: Acute (4) Hypokalemia: Status: Acute (5) COPD (chronic obstructive pulmonary disease): Status: Acute Qualifiers: COPD type: emphysema Emphysema type: centrilobular Qualified Code(s): J43.2 - Centrilobular emphysema (6) Malignant neoplasm of upper lobe, left bronchus or lung: Status: Acute Permanent problem details: Stage IB - T2a, N0, M0 (7) Chronic migraine: Status: Acute (8) Hyperthyroidism: Status: Acute Permanent problem details: Continue on home methimazole (9) Hypertension: Status: Acute Permanent problem details: Continue on atenolol, hold lisinopril until seen by primary care provider Reason for Visit Reason for Visit: [facility] Hospital Course Hospital Course May Cummings is a 72 year old female with a past medical history significant for anxiety, basilar artery aneurysm, migraines, COPD, dyslipidemia, hypertension, hyperthyroidism, lumbar stenosis, and 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 Last known well was 11 PM last night.? Upon evaluation, patient had been medicated for agitation and in a stuporous state.? She is unable to provide any history.? History is obtained from ED provider as well as chart review.? She was reportedly confused upon presentation stating that her only complaint was that she was cold.? Per ED provider exam, patient did not have a focal neurological deficit.? Of note, patient was recently evaluated 48 hours ago for chest pain and was prescribed hydrocodone. In the ED, CT head showed new peripheral edema in the left parietal and temporal lobe suggestive of recent ischemia without hemorrhage or significant mass effect among other chronic findings.? Requested that teleneurology evaluate patient before excepting the hospitalist service.? Remote neurology evaluated patient and per ED provider report, the CT findings favored artifact rather than acute stroke. Patient was a [facility] for altered mental status, likely secondary to polypharmacy, with toxic effect of marijuana, and or possible substance withdrawal. Patient was monitored as inpatient, her mentation improved, alert to person, to place, not to time, following commands, cultures negative so far, Topamax levels within normal limits, has been at bedside tells me that she has a history of dementia and she is about at baseline. We will discharge her with close follow-up with neurology as outpatient Patient process atrial fibrillation during the hospitalization, continue atenolol on discharge, discharged on Eliquis, follow-up with cardiology as outpatient Discharge instructions on Eliquis, as it is a strong blood thinner, monitor for bloody or black stools, monitor hemoglobin to her primary care monitor for falls if any concerns come back to emergency room Patient had CALVIN during the hospitalization, creatinine on discharge 1.7, likely secondary to dehydration, continue to hydrate well recheck creatinine in 1 week Physical Exam Const: COMMON NORMALS: no acute distress and patient oriented x3 Resp: COMMON NORMALS: normal respiratory effort, No retractions, No use of accessory muscles and clear to auscultation bilaterally AUSCULTATION: clear to auscultation bilaterally Cardio: COMMON NORMALS: regular rate, regular rhythm, S1 normal heart sound present and S2 normal heart sound present RATE: regular rate RHYTHM: regular rhythm HEART SOUNDS: S1 normal heart sound present and S2 normal heart sound present GI: COMMON NORMALS: Normal to inspection, nondistended, normoactive bowel sounds present and non-tender Extremity: COMMON NORMALS: no pedal edema Neuro: COMMON NORMALS: patient oriented x3 Psych: COMMON NORMALS: mental status grossly normal Urinary Catheter Management: Orantes: Cath Placed During This Visit: yes, but has since been removed by the nurse Reason for Continuing Indwelling Catheter: Accurate Measurement of Urinary Output in Critically Ill Patients Urinary Catheter Date of Insertion: 12/26/22 Urinary Catheter Time of Insertion: 10:12 Date Urinary Catheter Removed: 12/30/22 Time Urinary Catheter Discontinued: 10:58 Discharge Data Studies Completed and Pending Completed Studies During Hospitalization Category Date Time Status CT head wo con* [id number] Stat Cat Scan 12/25/22 18:37 Completed XR chest 1V portable [id number] Stat Exams 12/25/22 18:37 Completed XR hand LT min 3V* [id number] Routine Exams 12/27/22 15:33 Completed US renal BI* [id number] Routine Ultrasound 12/26/22 12:21 Completed Pending at discharge Category Date Time Status Basic Metabolic Panel AM LABS Lab 12/31/22 04:00 Ordered Basic Metabolic Panel AM LABS Lab 01/01/23 04:00 Ordered Blood Culture Stat Lab 12/25/22 19:03 Results Complete Blood Count w/Auto AM LABS Lab 12/31/22 04:00 Ordered Complete Blood Count w/Auto AM LABS Lab 01/01/23 04:00 Ordered Radiology Impressions Chest X-Ray 12/25/22 18:37 IMPRESSION: No acute findings Head CT 12/25/22 18:37 IMPRESSION: 1. New peripheral edema in the left parietal and temporal lobes suggestive of recent ischemia. No hemorrhage or significant mass effect. 2. Chronic microangiopathy. 3. 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 4. Chronic aneurysm coiling in the region of the basilar tip. ADDENDUM: 12/25/222030 THIS REPORT CONTAINS FINDINGS THAT MAY BE CRITICAL TO PATIENT CARE. The findings were verbally communicated via telephone conference with RUSSELL PERAZA at 8:29 PM FOREST OFFICER on 12/25/2022. The findings were acknowledged and understood. Renal Ultrasound 12/26/22 12:21 IMPRESSION: 1. Normal RIGHT kidney. 2. LEFT kidney was not imaged as the patient became combative. Hand X-Ray 12/27/22 15:33 IMPRESSION: No acute bony abnormalities. Laboratory Results WBC 10.4 10^3/uL (4.0-10.0) H 12/30/22 06:40 RBC 4.16 10^6/uL (4.1-5.3) 12/30/22 06:40 Hgb 11.2 g/dL (11.5-15.3) L 12/30/22 06:40 Hct 35.3 % (37.0-47.0) L 12/30/22 06:40 MCV 84.9 fl (81-99) 12/30/22 06:40 MCH 26.9 pg (28.0-34.0) L 12/30/22 06:40 MCHC 31.7 g/dL (30.0-36.0) 12/30/22 06:40 RDW 18.9 % (12.1-15.1) H 12/30/22 06:40 Plt Count 396 10^3/cmm (130-400) 12/30/22 06:40 MPV 9.4 fL (7.4-10.4) 12/30/22 06:40 Neut % (Auto) 56.1 % 12/30/22 06:40 Lymph % (Auto) 29.4 % 12/30/22 06:40 [place] % (Auto) 8.7 % 12/30/22 06:40 Eos % (Auto) 4.5 % 12/30/22 06:40 Baso % (Auto) 1.0 % 12/30/22 06:40 Neut # (Auto) 5.84 10^3/uL (1.8-7.7) 12/30/22 06:40 Lymph # (Auto) 3.1 10^3/uL (0.8-4.8) 12/30/22 06:40 [place] # (Auto) 0.9 10^3/uL (0.2-0.9) 12/30/22 06:40 Eos # (Auto) 0.5 10^3/uL (0.0-0.8) 12/30/22 06:40 Baso # (Auto) 0.1 10^3/uL (0.0-0.1) 12/30/22 06:40 Nucleated RBC % (auto) 0 % 12/30/22 06:40 Nucleated RBCs # 0.0 /100WBC 12/30/22 06:40 Specimen Type Arterial 12/25/22 18:48 Sample Site Radial, left 12/25/22 18:48 ABG pH 7.49 (7.35-7.45) H 12/25/22 18:48 ABG pCO2 33.2 mmHg (35-45) L 12/25/22 18:48 ABG pO2 91.7 mmHg (80.0-100.0) 12/25/22 18:48 ABG HCO3 25.0 mmol/L (22-26) 12/25/22 18:48 ABG Base Excess 2.0 mmol/L (-2.0-2.0) 12/25/22 18:48 [place] Test Pos 12/25/22 18:48 Hematocrit 40.2 % (37-47) 12/25/22 18:48 O2 Delivery Device Room air 12/25/22 18:48 FiO2 21.0 % 12/25/22 18:48 Telephone Maintainer ID Cak 12/25/22 18:48 Sodium 141 mmol/L (136-145) 12/30/22 06:40 Potassium 3.3 mmol/L (3.5-5.1) L 12/30/22 06:40 Chloride 107 mmol/L (98-107) 12/30/22 06:40 Carbon Dioxide 26 mmol/L (22-29) 12/30/22 06:40 Anion Gap 11.3 (5-19) 12/30/22 06:40 BUN 10 mg/dL (8-23) 12/30/22 06:40 Creatinine 1.7 mg/dL (0.5-0.9) H 12/30/22 06:40 GFR Calculation 29.7 mL/min (90-130) L 12/30/22 06:40 Glucose 120 mg/dL (65-115) H 12/30/22 06:40 POC Glucose 119 mg/dL (70-110) H 12/26/22 07:34 Calculated Osmolality 292 mOsm/kg (285-295) 12/30/22 06:40 Lactate 1.4 mmol/L (0.5-2.2) 12/25/22 18:50 Calcium 9.3 mg/dL (8.5-10.5) 12/30/22 06:40 Phosphorus 4.7 mg/dL (2.5-4.5) H 12/26/22 02:25 Magnesium 1.7 mg/dL (1.7-2.3) 12/29/22 05:53 Total Bilirubin 0.3 mg/dL (0.15-1.2) 12/29/22 05:53 AST 16 U/L (0-32) 12/29/22 05:53 ALT < 5 U/L (0-33) 12/29/22 05:53 Alkaline Phosphatase 74 U/L (35-105) 12/29/22 05:53 Ammonia 18 umol/L (11-51) 12/25/22 18:50 C-Reactive Protein 3.0 mg/L (0.0-4.9) 12/25/22 18:50 Total Protein 5.5 g/dL (6.6-8.7) L 12/29/22 05:53 Albumin 3.4 g/dL (3.5-5.2) L 12/29/22 05:53 Globulin 2.1 g/dL (1.3-4.6) 12/29/22 05:53 Vitamin B12 342 pg/mL (232-1245) 12/25/22 18:50 Procalcitonin 0.09 ng/mL (0-0.5) 12/25/22 18:50 TSH 2.10 uIU/mL (0.27-4.20) 12/25/22 18:50 Urine Color Yellow (Yellow) 12/25/22 19:13 Urine Appearance Clear (CLEAR) 12/25/22 19:13 Urine pH 5 (5-7) 12/25/22 19:13 Ur Specific Cranberry 1.015 (1.005-1.030) 12/25/22 19:13 Urine Protein 1+ (Negative) H 12/25/22 19:13 Urine Glucose (UA) Norm (Normal) 12/25/22 19:13 Urine Ketones Negative (Negative) 12/25/22 19:13 Urine Blood Trace (Negative) H 12/25/22 19:13 Urine Nitrate Negative (Negative) 12/25/22 19:13 Urine Bilirubin Neg (Negative) 12/25/22 19:13 Urine Urobilinogen Neg mg/dL (Negative) 12/25/22 19:13 Ur Leukocyte Esterase Negative (Negative) 12/25/22 19:13 Urine RBC 0-4 /hpf (0-2) H 12/25/22 19:13 Urine WBC 0-4 /hpf (0-5) H 12/25/22 19:13 Ur Squamous Epith Cells 5-10 /hpf (0-5) H 12/25/22 19:13 Amorphous Sediment Not Reportable 12/25/22 19:13 Urine Bacteria Trace /hpf (NONE) 12/25/22 19:13 Urine Mucus Trace /hpf 12/25/22 19:13 Ur Random Sodium 97 mmol/L 12/29/22 10:02 Urine Creatinine 12 mg/dL (28-217) L 12/29/22 10:02 Urine Opiates Screen Positive ng/mL (Negative) H 12/25/22 19:13 Acetaminophen < 5.0 ug/mL (10-30) L 12/25/22 18:50 Ur Barbiturates Screen Negative ng/mL (Negative) 12/25/22 19:13 Topiramate <0.5 mcg/mL 12/25/22 18:50 Ur Phencyclidine Scrn Negative ng/mL (Negative) 12/25/22 19:13 Ur Amphetamines Screen Negative ng/mL (Negative) 12/25/22 19:13 U Benzodiazepines Scrn Negative ng/mL (Negative) 12/25/22 19:13 Urine Cocaine Screen Negative ng/mL (Negative) 12/25/22 19:13 U Marijuana (THC) Screen Positive ng/mL (Negative) H 12/25/22 19:13 Ethyl Alcohol < 10 mg/dL (0-10) 12/25/22 18:50 Vitals Last Vital Signs Temp 98.1 F 12/30/22 12:20 Pulse 83 12/30/22 12:20 Resp 18 12/30/22 12:20 BP 162/80 12/30/22 13:14 Pulse Ox 93 12/30/22 12:20 O2 Del Method 12/30/22 12:20 O2 Flow Rate 2 12/29/22 20:00 Discharge Plan Discharge Patient Disposition: Home Condition: Fair Prescriptions: New Norvasc 10 mg tablet 10 mg PO DAILY 30 Days Qty: 30 0RF Eliquis 5 mg tablet 5 mg PO BID 30 Days Qty: 60 0RF Continued polyethylene glycol 3350 [Miralax] 17 gram powder in packet 17 gm PO DAILY@08 methimazole 5 mg tablet 10 mg PO DAILY sumatriptan succinate 100 mg tablet See Rx Instructions .ROUTE .COMPLEX Qty: 9 6RF Dose Instruction: TAKE ONE TABLET BY MOUTH TWICE DAILY NEEDED FOR migraine HEADACHE wait AT least TWO HOURS between doses Rx Instructions: TAKE ONE TABLET BY MOUTH TWICE DAILY NEEDED FOR migraine HEADACHE wait AT least TWO HOURS between doses oxycodone 5 mg tablet 5 mg PO Q4H PRN (Reason: pain) 30 Days Qty: 120 0RF Trelegy Ellipta 100-62.5-25 mcg blister with device See Rx Instructions .ROUTE .COMPLEX Qty: 60 2RF Dose Instruction: inhale ONE PUFF into lungs DAILY Rx Instructions: inhale ONE PUFF into lungs DAILY mv,Ca,ir,Ad-UR-ide-gel-patty-PAB 3-133 mg-mcg Capsule 2 cap PO DAILY Benefiber Healthy Shape 5 gram/7.4 gram Powder See Rx Instructions .ROUTE .COMPLEX Rx Instructions: 1 TSP PO QAM Probiotic 2 tab PO QAM clopidogrel 75 mg tablet 75 mg PO DAILY@20 Hold Instructions: Doctor's Order pantoprazole [Protonix] 40 mg tablet,delayed release (DR/EC) 40 mg PO BID atenolol 50 mg tablet 50 mg PO DAILY@20 dicyclomine 20 mg tablet 20 mg PO QID PRN (Reason: Abdominal Discomfort) Emgality Pen 120 mg/mL pen injector 240 mg SUBCUT Q30D ondansetron 4 mg Tablet,Disintegrating 4 mg PO Q6H sucralfate 1 g PO Q6H Discontinued lisinopril 10 mg tablet 10 mg PO DAILY@20 Hold Instructions: Resume on 01/06/20. Follow-up with primary care provider to discuss need to continue this medication topiramate [Topamax] 100 mg tablet 100 mg PO DAILY Qty: 30 6RF Rx Instructions: Take 1/2 tablet daily hydrocodone-acetaminophen 5-325 mg tablet 1 tab PO Q6H PRN (Reason: pain) Qty: 14 0RF amitriptyline 25 mg tablet 25 mg PO DAILY Discharge Orders: Discharge Order (Routine); Ordered 12/30/22 Ordered By: Marco Celestin Referrals: Roshni Hyde MD [Physician] - 1 week (Please call Dr. Hyde's Office on Monday at [phone] to schedule a follow up appointment for 1 week. Thank you.) Maria Emery MD [Primary Care Provider] - 01/04/23 9:15 am Salvatore Jones M.D [Physician] - 2 weeks (Please call Dr. Jones's Office on Monday at [phone] to schedule a follow up appointment for 2 weeks. Thank you.) Discharge Diet: Cardiac Discharge Activity: Resume usual activity Patient Instructions: Amlodipine (By mouth) (Hypertenipine-2.5, Norvasc, Norliqva), Apixaban (By mouth) (Eliquis), Hypertension, A-fib (Atrial Fibrillation) (DC), Altered Mental Status (GEN), Opioid Safety Activity Restrictions/Additional Instructions: - If you have recurrent episodes of confusion please go to the emergency room -Please follow-up with primary care provider in 1 week -I have discharged you on a blood thinner for atrial fibrillation, if you develop bloody or black stools or lightheadedness or dizziness if you fall go to the emergency room -For atrial fibrillation if you have recurrent chest pain or palpitations go to the emergency room -Please avoid marijuana use -Please follow-up with neurology in 1 week Discharge Attestations Time Spent in Discharge Care*: greater than 30 min Quality Metrics Clinical Quality Measures [ No reported AMI, CVA or VTE this stay] Coding Level of Care Code 46480 Total time (in minutes) for Discharge: 45 Diagnoses Altered mental status R41.82 Paroxysmal atrial fibrillation with RVR I48.0 CALVIN (acute kidney injury) N17.9 Hypokalemia E87.6 COPD (chronic obstructive pulmonary disease) J43.2 COPD type: emphysema Emphysema type: centrilobular Malignant neoplasm of upper lobe, left bronchus or lung C34.12 Chronic migraine Hyperthyroidism E05.90 Hypertension I10
--- NOTE | 2022-12-30 15:50 | PC.NURSE ---
discharge instructions given and explained to pt and spouse.they verb understanding of instructions.discharged ia w/c to exit at thiss time
== END 2022-12-30 15:51 | disposition home or self-care (01) | DRG 92 ==
LOC: ER 20:16 → ICU 12-26 00:01 → CSU 12-29 23:39
PROVIDERS: Admitting Provider Internal Medicine; Emergency Provider Emergency Medicine; PCP Family Medicine; Visit Provider Internal Medicine
DX: G92.8 Other toxic encephalopathy (principal); C34.12 Malignant neoplasm of upper lobe, left bronchus or lung; N17.9 Acute kidney failure, unspecified; T40.605A Adverse effect of unspecified narcotics, initial encounter; T43.015A Adverse effect of tricyclic antidepressants, initial encounter; T40.715A Adverse effect of cannabis, initial encounter; F03.90 Unspecified dementia, unspecified severity, without behavioral disturbance, psychotic disturbance, mood disturbance, and anxiety; I48.91 Unspecified atrial fibrillation; F41.9 Anxiety disorder, unspecified; G43.709 Chronic migraine without aura, not intractable, without status migrainosus; J43.2 Centrilobular emphysema; E78.5 Hyperlipidemia, unspecified; I10 Essential (primary) hypertension; E05.90 Thyrotoxicosis, unspecified without thyrotoxic crisis or storm; M48.061 Spinal stenosis, lumbar region without neurogenic claudication; E86.0 Dehydration; Z79.891 Long term (current) use of opiate analgesic; Z79.02 Long term (current) use of antithrombotics/antiplatelets; Z90.81 Acquired absence of spleen; Z87.891 Personal history of nicotine dependence; E87.6 Hypokalemia
CPT/HCPCS: 36415; 36416; 36600; 51702; 70450; 71045; 73130; 76770; 80048; 80053; 80201; 80306; 80307; 81001; 82140; 82570; 82607; 82803; 82962; 83605; 83735; 84100; 84145; 84300; 84443; 85025; 86140; 87040; 87086; 93005; 96372; 96374; 96375; 96376; 97116; 97161; 97166; 97530; 99285; C9113; G0378; J0133; J0360; J1630; J1650; J2060; J3475; J3480; J3490; J7030; J7799

== ENCOUNTER → 2023-01-09 11:47 | Outpatient (BNVA) | payer MEDICARE, SELFPAY | PROVIDERS: PCP Nurse Practitioner Family; Visit Provider Specialist | DX: I69.320 Aphasia following cerebral infarction (principal); C34.12 Malignant neoplasm of upper lobe, left bronchus or lung; I48.0 Paroxysmal atrial fibrillation; Z79.01 Long term (current) use of anticoagulants; Z87.891 Personal history of nicotine dependence; Z86.79 Personal history of other diseases of the circulatory system | CPT/HCPCS: 99215 ==

== ENCOUNTER 2023-02-08 10:59 | Outpatient (CLI) | payer MEDICARE, SELFPAY ==
--- NOTE | 2023-02-08 11:00 | CT_ITS ---
WS: [id number] CTA HEAD TECHNIQUE: Contrast enhanced CTA of the head with coronal and sagittal reformatted images and maximum intensity projection (MIP) images. NASCET criteria utilized. CLINICAL INFORMATION: I63.512 - Cerebral infarction due to unspecified occlusio... COMPARISON: CT head December 25, 2022 DLP: 1512.[address] scans at [facility] use at least one of these dose optimization techniques: automated e xposure control; mA and/or kV adjustment per patient size (includes targeted exams where dose is matc hed to clinical indication); or iterative reconstruction. FINDINGS: Prior basilar tip aneurysm coils with susceptibility artifact. This degrades images in the midbrain. Moderate small vessel changes. Mild parenchymal volume loss. Low-attenuation change in the LEFT parietal and superior temporal lobes compatible with subacute infarcts. Infarcts have evolved si nce December 25, 2022. No evidence of intracranial hemorrhage or mass effect. Tiny chronic lacunar in farcts in the LEFT basal ganglia. Paranasal sinuses and mastoid air cells are well aerated. Normal po sterior nasopharynx. Normal parapharyngeal fat. INTRACRANIAL CTA: Distal vertebral arteries are patent. Basilar tip aneurysm coils. Additional aneurysm coils along the LEFT P-comm at the FLEET ADMINISTRATOR junction. Patent RIGHT posterior communicating artery. Normal vascularity to the FLEET ADMINISTRATOR territory bilaterally. Both ICAs are patent at the skull base. Cavernous carotid calcification. Normal vascularity to the AC A territory. Normal vascularity to the proximal MCA territories bilaterally. No evidence of proximal flow-limiting stenosis.Expected decreased vascularity in the area of recent infarcts in the superior LEFT temporal lobe and LEFT parietal lobe laterally. Normal posterior nasopharynx. Normal parapharyngeal fat. No other suspicious findings. CT/CT angio head [id number] IMPRESSION: 1. Previously described LEFT parietal and superior temporal infarct has evolve d compared to 04/11 with associated low-attenuation change. No significant mass effect or hemorrhage. 2. Prior basilar tip aneurysm coiling with additional embolization coils at th e distal LEFT P-comm. 3. Expected decreased vascularity in the area of recent infarcts in the superi or LEFT temporal lobe and LEFT parietal lobe laterally. No proximal flow limiti ng stenosis. 4. No other suspicious findings.
[2023-02-08] MEDS: iohexol 350 mg/mL 500 mL Btl (per mL) IV (11:27)
== END 2023-02-08 11:00 | disposition home or self-care (01) ==
PROVIDERS: PCP Nurse Practitioner Family; Visit Provider Specialist
DX: I63.512 Cerebral infarction due to unspecified occlusion or stenosis of left middle cerebral artery (principal); I63.89 Other cerebral infarction
CPT/HCPCS: 70496; Q9967

== ENCOUNTER 2023-02-23 06:00 | Outpatient (RCR) | payer MEDICARE, SELFPAY | END 2023-03-19 23:59 | disposition home or self-care (01) | LOC: SST 06:00 | PROVIDERS: Visit Provider Specialist | DX: I72.5 Aneurysm of other precerebral arteries (principal); R13.10 Dysphagia, unspecified | CPT/HCPCS: 92507; 92523 ==

== ENCOUNTER → 2023-03-16 16:15 | Outpatient (BNVA) | payer MEDICARE, SELFPAY | PROVIDERS: PCP Nurse Practitioner Family; Visit Provider Specialist | DX: I63.512 Cerebral infarction due to unspecified occlusion or stenosis of left middle cerebral artery (principal); I48.0 Paroxysmal atrial fibrillation | CPT/HCPCS: 99214 ==

== ENCOUNTER 2023-03-20 06:00 | Outpatient (RCR) | payer MEDICARE, SELFPAY | END 2023-04-19 23:59 | disposition home or self-care (01) | LOC: SST 06:00 | PROVIDERS: PCP Nurse Practitioner Family; Visit Provider Specialist | DX: R13.10 Dysphagia, unspecified (principal) | CPT/HCPCS: 92507 ==

== ENCOUNTER 2023-04-20 06:00 | Outpatient (RCR) | payer MEDICARE, SELFPAY | END 2023-05-19 23:59 | disposition home or self-care (01) | LOC: SST 06:00 | PROVIDERS: PCP Nurse Practitioner Family; Visit Provider Specialist | DX: R13.10 Dysphagia, unspecified (principal); I60.4 Nontraumatic subarachnoid hemorrhage from basilar artery | CPT/HCPCS: 92507 ==

== ENCOUNTER 2023-05-03 13:00 | Oncology outpatient (recurring) (ONCR) | payer MEDICARE, SELFPAY ==
[2023-01-25 11:35] LABS: Basophils # 0.1 10^3/uL (0.0-0.1); Eosinophils # 0.3 10^3/uL (0.0-0.8); Eosinophils % 3.2 %; Hematocrit 33.6 % (37.0-47.0); Hemoglobin 10.6 g/dL (11.5-15.3); Lymphocytes # 3.2 10^3/uL (0.8-4.8); Lymphocytes % 32.4 %; Mean Corpuscular HGB Conc 31.5 g/dL (30.0-36.0); Mean Corpuscular Volume 85.5 fl (81-99); Mean Platelet Volume 9.3 fL (7.4-10.4); Monocytes # 0.8 10^3/uL (0.2-0.9); Monocytes % 7.6 %; Neutrophils # 5.47 10^3/uL (1.8-7.7); Neutrophils % 55.5 %; Nucleated Red Blood Cells % 0 %; Platelet Count 523 10^3/cmm (130-400); Red Blood Count 3.93 10^6/uL (4.1-5.3); Red Cell Distribution Width 19.4 % (12.1-15.1); White Blood Count 9.9 10^3/uL (4.0-10.0)
[2023-01-25 11:57] LABS: Alanine Aminotransferase 6 U/L (0-33); Albumin Level 3.8 g/dL (3.5-5.2); Alkaline Phosphatase 101 U/L (35-105); Anion Gap 11.7 (5-19); Aspartate Amino Transferase 16 U/L (0-32); Blood Urea Nitrogen 16 mg/dL (8-23); Calcium 9.2 mg/dL (8.5-10.5); Carbon Dioxide 28 mmol/L (22-29); Chloride 103 mmol/L (98-107); Globulin 2.7 g/dL (1.3-4.6); Glomerular Filtration Rate 61.9 mL/min (90-130); Glucose 107 mg/dL (65-115); Osmolality Calculated 290 mOsm/kg (285-295); Potassium 3.7 mmol/L (3.5-5.1); Sodium 139 mmol/L (136-145); Total Bilirubin 0.2 mg/dL (0.15-1.2); Total Protein 6.5 g/dL (6.6-8.7)
[2023-01-25 14:59] LABS: Ferritin 13 ng/mL (15-150); Iron 26 ug/dL (37-145); Percent Saturation 7.6 % (20-50); Total Iron Binding Capacity 340 mcg/dl; Unsaturated Iron Binding 314 ug/dL (112-347)
[2023-05-03 13:18] VITALS: BP 166/87; PULSE 64; RESP 18; TEMP 37.3; O2SAT 99
[2023-05-03 13:47] LABS: Basophils # 0.1 10^3/uL (0.0-0.1); Basophils % 0.9 %; Eosinophils # 0.3 10^3/uL (0.0-0.8); Eosinophils % 2.5 %; Hematocrit 36.4 % (37.0-47.0); Hemoglobin 11.3 g/dL (11.5-15.3); Lymphocytes # 3.8 10^3/uL (0.8-4.8); Lymphocytes % 36.6 %; Mean Corpuscular Volume 83.7 fl (81-99); Monocytes # 0.8 10^3/uL (0.2-0.9); Monocytes % 7.4 %; Neutrophils # 5.36 10^3/uL (1.8-7.7); Neutrophils % 52.3 %; Nucleated Red Blood Cells % 0 %; Platelet Count 440 10^3/cmm (130-400); Red Blood Count 4.35 10^6/uL (4.1-5.3); Red Cell Distribution Width 20.3 % (12.1-15.1); White Blood Count 10.3 10^3/uL (4.0-10.0)
[2023-05-03 14:08] LABS: Ferritin 21 ng/mL (15-150); Iron 68 ug/dL (37-145); Percent Saturation 17.5 % (20-50); Total Iron Binding Capacity 387 mcg/dl; Unsaturated Iron Binding 319 ug/dL (112-347)
== END 2023-05-03 23:59 | disposition home or self-care (01) ==
PROVIDERS: Nurse Practitioner; Nurse Practitioner Family; PCP Nurse Practitioner Family; Visit Provider Internal Medicine Medical Oncology
DX: Z08 Encounter for follow-up examination after completed treatment for malignant neoplasm (principal); Z85.118 Personal history of other malignant neoplasm of bronchus and lung; J44.9 Chronic obstructive pulmonary disease, unspecified; D50.9 Iron deficiency anemia, unspecified; H53.8 Other visual disturbances; Z79.899 Other long term (current) drug therapy; Z87.891 Personal history of nicotine dependence; Z92.21 Personal history of antineoplastic chemotherapy; Z92.3 Personal history of irradiation
CPT/HCPCS: 36591; 80053; 82274; 82728; 83540; 83550; 85025; 99214; J1642

== ENCOUNTER → 2023-05-04 12:17 | Outpatient (BNVA) | payer MEDICARE, SELFPAY | PROVIDERS: PCP Nurse Practitioner Family; Visit Provider Specialist | DX: G43.711 Chronic migraine without aura, intractable, with status migrainosus (principal); Z86.73 Personal history of transient ischemic attack (TIA), and cerebral infarction without residual deficits; I48.20 Chronic atrial fibrillation, unspecified | CPT/HCPCS: 64615; 99213; J0585 ==

== ENCOUNTER 2023-05-20 06:00 | Outpatient (RCR) | payer MEDICARE, SELFPAY | END 2023-06-19 23:59 | disposition home or self-care (01) | LOC: SST 06:00 | PROVIDERS: PCP Nurse Practitioner Family; Visit Provider Specialist | DX: I63.9 Cerebral infarction, unspecified (principal); R47.01 Aphasia; R41.841 Cognitive communication deficit | CPT/HCPCS: 92507 ==

== ENCOUNTER 2023-06-08 13:58 | Outpatient (CLI) | payer MEDICARE, SELFPAY ==
--- NOTE | 2023-06-08 14:00 | CTR_ITS ---
PROCEDURE INFORMATION: Exam: CT Chest With Contrast; Diagnostic Exam date and time: 06/08/2023 3:29 PM Age: 73 years old Clinical indication: Condition or disease; Other: Non small cell lung cancer; Lung condition and disease; Cancer of the lung; Bilateral; Unspecified; Prior surgery; Surgery date: 6+ months; Surgery type: --splenectomy; Additional info: Surveillance TECHNIQUE: Imaging protocol: Diagnostic computed tomography of the chest with contrast. Radiation optimization: All CT scans at this facility use at least one of these dose optimization techniques: automated exposure control; mA and/or kV adjustment per patient size (includes targeted exams where dose is matched to clinical indication); or iterative reconstruction. Contrast material: OMNI 350; Contrast volume: 100 ml; Contrast route: INTRAVENOUS (IV); REPORTING DATA: Count of CT and Cardiac NM exams in prior 12 months: This patient has received 4 known CTs and 0 known cardiac nuclear medicine studies in the 12 months prior to the current study. COMPARISON: 1. CT chest abdpel w/*[id number] 08/08/2022 11:[address] angio chest w abd pel w con 03/03/2022 12:08 AM 3. CR (CHEST, ) 12/25/2022 7:11 PM RADIATION DOSE METRICS: Total DLP (mGy-cm): 827.9 FINDINGS: Tubes, catheters and devices: Right chest port terminates at the superior cavoatrial junction. Lungs: Upper lung predominant emphysematous changes. Expected evolution of left upper lung posttreatment pleural-parenchymal fibrosis with architectural distortion and bronchiectasis. No consolidation or mass. Pleural spaces: No pleural effusion or pneumothorax. Heart: Unremarkable. No cardiomegaly. No pericardial effusion. Coronary arteries: Mild coronary artery calcification. Lymph nodes: No enlarged lymph nodes. Vasculature: Mild systemic atherosclerotic calcification without thoracic aortic aneurysm. Diaphragm: Small hiatal hernia. Bones/joints: No acute fracture. Old healed fracture deformity of the left clavicle. Mild degenerative changes along the spine and shoulders. Soft tissues: Unremarkable. COMMENTS: In the absence of a history or active diagnosis of lung cancer, it is recommended that this patient with emphysema be evaluated for enrollment in a low dose CT lung cancer screening program. PROCEDURE INFORMATION: Exam: CT Abdomen And Pelvis With Contrast Exam date and time: 06/08/2023 3:29 PM Age: 73 years old Clinical indication: Condition or disease; Other: Non small cell lung cancer; Lung condition and disease; Cancer of the lung; Bilateral; Unspecified; Prior surgery; Surgery date: 6+ months; Surgery type: --splenectomy; Additional info: Surveillance TECHNIQUE: Imaging protocol: Computed tomography of the abdomen and pelvis with contrast. Radiation optimization: All CT scans at this facility use at least one of these dose optimization techniques: automated exposure control; mA and/or kV adjustment per patient size (includes targeted exams where dose is matched to clinical indication); or iterative reconstruction. Contrast material: OMNI 350; Contrast volume: 100 ml; Contrast route: INTRAVENOUS (IV); REPORTING DATA: Count of CT and Cardiac NM exams in prior 12 months: This patient has received 4 known CTs and 0 known cardiac nuclear medicine studies in the 12 months prior to the current study. COMPARISON: 1. CT chest abdpel w/*[id number] 08/08/2022 11:[address] abdomen pelvis wo/w [id number] 02/14/2022 2:[address] angio chest w abd pel w con 03/03/2022 12:08 AM RADIATION DOSE METRICS: Total DLP (mGy-cm): 872.9 FINDINGS: Liver: Normal without focal lesions. Gallbladder and bile ducts: Normal. No calcified stones. No ductal dilation. Pancreas: Normal without ductal dilatation. Spleen: Stable post splenectomy changes. Adrenal glands: Normal. No mass. Kidneys and ureters: Subcentimeter bilateral renal hypodensities are too small to characterize. Otherwise unremarkable. Stomach and bowel: No bowel dilatation or mucosal thickening. Colonic diverticulosis without findings of diverticulitis. Appendix: Normal. Intraperitoneal space: No free air, free fluid, or well-organized fluid collection. Vasculature: Moderate systemic atherosclerotic calcification without abdominal aortic aneurysm. Lymph nodes: No enlarged lymph nodes. Urinary bladder: Urinary bladder is unremarkable. Reproductive: Unremarkable as visualized. Bones/joints: No acute fracture. Mild dextroconvex curvature of the spine. Degenerative changes along the spine. Soft tissues: Stable moderate fat containing supra- and left periumbilical hernias. CT/CT chest abdpel w/*[id number] IMPRESSION: Expected evolution of left upper lung posttreatment changes without evidence of recurrent or progressive thoracic disease. IMPRESSION: No evidence of metastatic disease to the abdomen or pelvis.
[2023-06-08] MEDS: iohexol 350 mg/mL 500 mL Btl (per mL) IV (14:55)
[2023-06-08] MEDS: iohexol 350 mg/mL 500 mL Btl (per mL) PO (14:55)
[2023-06-08 15:29] LABS: Blood Urea Nitrogen 11 mg/dL (8-23)
== END 2023-06-08 13:59 | disposition home or self-care (01) ==
LOC: RAD 14:00
PROVIDERS: PCP Nurse Practitioner Family; Visit Provider Nurse Practitioner Family
DX: C34.12 Malignant neoplasm of upper lobe, left bronchus or lung (principal); Z90.89 Acquired absence of other organs
CPT/HCPCS: 71260; 74177; 82565; 84520; Q9967

== ENCOUNTER 2023-08-21 14:29 | Oncology outpatient (recurring) (ONCR) | payer MEDICARE, SELFPAY ==
--- OUTSIDE RECORDS SUMMARY | 2023-08-21 14:37 | XMS_ITS | Patient Health Record ---
Author Name Unknown Organization [facility] Address [address] [place] [address] Care Team Providers Care Buckle Stringer Name Role Phone Maria Gomez Primary Care Provider [phone] MARIA GOMEZ Unavailable Unavailable [place], [facility] Unavailable [phone] ALLERGIES Allergen (clinical drug ingredient) Drug/Non Drug Allergy documented on EMR Reaction Allergy Type Onset Date Status duloxetine Cymbalta nausea and vomiting Drug Allergy Active REASON FOR REFERRAL No Information MEDICATIONS Medication SIG (Take, Route, Frequency, Duration) Notes Start Date End Date Status Hair Skin & Nails Gummies 1250-7.5-7.5 MCG-MG-UNT as directed Orally Active oxyCODONE HCl 5 MG 1 tablet as needed Orally every 6 hrs Active Lisinopril 10 MG TAKE ONE TABLET BY MOUTH EVERY DAY Orally Once a day for 30 days Not-Taking Viactiv Calcium Plus D 650-12.5-40 MG-MCG as directed Orally Act brandt Biotin 10 MG as directed Orally Not-Taking predniSONE 10 MG (21) as directed Orally Active Amitriptyline HCl 25 MG 1 tablet at bedt joan Orally Once a day Not-Taking Albuterol Sulfate HFA 108 (90 Base) MCG/ACT 2 puff as needed Inhalation every 4 hrs Active Topamax 100 MG 0.5 tablet Orally Once a day Not-Taking methIMAzole 10 mg TAKE ONE TABLET BY MOUTH with food ONCE A DAY for 30 Active levoFLOXacin 500 MG 1 tablet Orally Once a day for 7 days 08/16/2023 08/23/2023 Active Sucralfate 1 GM TAKE ONE TABLET BY MOUTH FOUR TIMES DAILY ON an EMPTY stomach for 30 Active Pantoprazole Sodium 40 mg TAKE ONE TABLE T BY MOUTH TWICE DAILY for 30 Active SUMAtriptan Succinate 100 MG TAKE ONE TABLET BY MOUTH TWICE DAILY NEEDED wait AT least TWO hours between doses for 5 Active Clopidogrel Bisulfate 75 mg TAKE ONE TABLET BY MOUTH EVERY DAY for 30 Active Atenolol 50 mg TAKE ONE TABLET BY MOUTH EVERY DAY for 30 Active IMMUNIZATIONS Vaccine Route Administration Date Status Comme nts Flu vaccine no Preserv 3 and > Unknown 11/22/2019 Admin istered Influenza (whole), CPT 68633 Inactive Unknown 08/20/2018 Administered Pneumovax 23 Unknown 11/22/2019 Administered SOCIAL HISTORY Tobacco Use: Social History Observation Description Date Details (start date - stop date) Former Smoker NA - NA Sex Assigned At : Social History Observation Description Sex Assigned At Unknown Tobacco Use/Smoking Question Answer Notes Are you a former smoker How long has it been since you last smoked? 1-5 years Alcohol Screen (Audit-C) Question Answer Notes Did you have a drink containing alcohol in the p ast year? No Points 0 Interpretation Negative PHQ-9 Question Answer Notes Little interest or pleasure in doing things Not at all Feeling down, depressed, or hopeless Not at all Trouble falling or staying asleep, or sleeping t oo much Not at all Feeling tired or having little energy Not at all Poor appetite or overeating Not at all Feeling bad about yourself, or that you are a failure, or have let yourself or your family down Not at all Trouble concentrating on thi ngs, such as reading the newspaper or watching television Not at all Moving or speaking so slowly that other people could have noticed. Or the opposite ? being so fidgety or restless that you have been moving around a lot more than usual Not at all Thoughts that you would be b page off , or of hurting yourself in some way Not at all Total Score 0 PROBLEMS Problem Type ICD Code Onset Dates Problem Status W/U Status Risk SNOMED Code Notes Problem Non-small cell cancer of left lung (C34.92) Active confirmed 789729308 Problem Port-A-Cath in place (Z95.828) Active confirmed 703244253 Problem Hyperthyroidism (E05.90) Active confirmed 79092277 Problem Obesity (BMI 30.0-34.9) (E66.9) Active confirmed 427612152054499 Problem Migraine without status migrainosus, not intractable, unspecified migraine type (G43.909) Active confirmed 80997370 Problem Insomnia (G47.00) Active confirmed Inso mnia (802347181) Problem Altered mental status (R41.82) Active confirmed Altered ment al status (455506333) Problem Hyperlipidemia, unspecified hyperlipidemia type (E78.5) Active confirmed 19189907 Problem GERD with esophagitis (K21.0) Active confirmed 723319391 Problem COPD exacerbation (J44.1) Active confirmed Acute exacerbation of COPD (444875269) Problem Chronic constipation (K59.09) Active confirmed 103685921 Problem Chronic obstructive pulmonary disease, unspecified COPD type (J44.9) Active confirmed 80039030 Problem Anxiety (F41.9) Active confirmed 084420 02 Problem Essential hypertension (I10) Active confirmed 78550099 Problem Other nonspecific abnormal finding of lung field (R91.8) Active confirmed Lung field abnormal (414966704) Problem Lumbago with sciatica, left side (M54.42) Active confirmed 467283574 Problem Other chronic pain (G89.29) Active confirmed 13269695 VITAL SIGNS Heart Rate 94 /min 08/16/2023 Temperature 97.4 degrees Fahrenheit 08/16/2023 Respiratory Rate 20 /min 08/16/2023 Height-cm 154.94 cm 08/16/2023 Oximetry 98 % 08/16/2023 Blood pressure diastolic 84 mm Hg 08/16/2023 Weight-kg 73.48 kg 08/16/2023 Height 61 in 08/16/2023 Blood pressure systolic 136 mm Hg 08/16/2023 Weight 162 lbs 08/16/2023 BMI 30.61 kg/m2 08/16/2023 Encounters Encounter Location Date Provider Diagnosis [place] [address] [address] 11/16/2022 Maria Gomez [facility] [address] [address] 12/23/2022 Sierra Tapia Rectal bleeding K62. 5 [place] [address] [address] 01/24/2023 Maria Gomez [facility] [place] [address] [place] [address] 06/13/2023 Maria Gomez [facility] [address] [place] [address] 07/03/2023 Maria Gomez [facility] [address] [place] [address] 07/27/2023 [facility] [address] [place] [address] 08/16/2023 Maria Gomez Hypertension, unspecified type I10 ; Hyperlipidemia, unspecified hyperlipidemia type E78.5 and Hyperthyroidism E05.90 [facility] [address] [place] [address] 08/16/2023 Maria Gomez COPD exacerbation J44.1 and Former smoker Z87.891 [facility] [address] [place] [address] 02/23/2023 Mariadiego Casaston Migraine without status migrainosus, not intractable, unspecified migraine type G43.909 [facility] [address] [place] [address] 01/05/2023 Maria Gomez Insomnia G47.00 and Altered mental status R41.82 [facility] [address] [place] [address] 01/17/2023 Mariadiego Casaston Migraine without status migrainosus, not intractable, unspecified migraine type G43.909 [facility] [place] [facility] [address] [facility] [place] [address] 12/06/2022 Maria [place] Migraine without status migrainosus, not intractable, unspecified migraine type G43.909 [facility] [address] [place] [address] 09/19/2022 Maria Batterton Migraine without status migrainosus, not intractable, unspecified migraine type G43.909 [facility] [place] [facility] [address] [place] [address] 08/21/2023 Maria Gomez ASSESSMENTS Encounter Date Diagnosis Assessment Notes Treatment Notes Treatment Clinical Notes 09/19/2022 Migraine without status migrainosus, not intractable, unspecified migraine type (ICD-10 - G43.909) 12/06/2022 Migraine without status migrainosus, not intractable, unspecified migraine type (ICD-10 - G43.909) 12/23/2022 Rectal bleeding (ICD-10 - K62.5) 01/05/2023 Altered mental statu s (ICD-10 - R41.82) Resolved, keep follow up apt with Dr. Hyde on 01-09-23. 01/05/2023 Insomnia (ICD-10 - G47.00) 01/17/2023 Migraine without status migrainosus, not intractable, unspecified migraine type (ICD-10 - G43.909) 02/23/2023 Migraine without status migrainosus, not intractable, unspecified migraine type (ICD-10 - G43.909) 08/16/2023 COPD exacerbation (ICD-10 - J44.1) Increase fluids, take medication as directed. RTC if no improvement with treatment. 08/16/2023 Former smoker (ICD-1 0 - Z87.891) 08/16/2023 Hypertension, unspecified type (ICD-10 - I10) Pt will go to [facility] for labs due to pt having a port. 08/16/2023 Hyperlipidemia, unspecified hyperlipidemia type (ICD-10 - E78.5) 08/16/2023 Hyperthyroidism (ICD-10 - E05.90) PLAN OF TREATMENT Pending Test Test Name Order Date PETCT 03/30/2021 CBC w\ Auto Diff [id number] 08/16/2023 Comprehensive Metabolic Panel 29480 07/22 Lipid Panel Reflex DLDL 59832, 68484 Thyroid Stimulating Hormone (TSH) 74181 08/16/2023 T4 [id number] 08/16/2023 T3 Free 91886 08/16/2023 zzDIAGNOSTIC COLONOSCOPY--01271 04/29/20 20 zzEGD, UPPER GI ENDO DIAG 04/29/2020 Insurance Providers Payer Name Payer Address Payer Phone Subscriber Number Group Number Insured Name Patient Relationship to Insured Coverage Start Date Coverage End Date [place] Replacement [address] [place] [phone] [id number] May Cummings Self - patient is the insured [place] Medicare [address] [place] [phone] [id number] May Cummings Self - patient is the insured MEDICATIONS ADMINISTERED Medication Instructions Date of Administration Dosage Notes Depo-Medrol / Methylprednisholone Acetate per 40mg 01/26/2021 40 mg dexAMETHasone 08/03/2022 8 mg [address]- 03 IM - Patient Supplied Med 09/19/2022 emgality 120mg/pen x 2 given sq in abdomen, no reaction after 20 minutes, patient tolerated well. qlz-[id number] 1 lot-[id number] exp-04/07/2024 IM - Patient Supplied Med 12/06/2022 cvi-[id number] 1 lot-[id number] mjl-80-1609-02-2024 Emagality 120mg given subq in patient abdomen, Patient tolerated well. No reaction after 20 minute wait. IM - Patient Supplied Med 01/17/2023 Emgality 120mg given sq in right side of abdomen next to umbillicus. Patient tolerated well. NDC- [address]-41 lot [id number] exp-08/26/2024 IM - Patient Supplied Med 02/23/2023 Emgality 120ml given sq in left side of abdomen parallel to umbilicus. No reaction noted after 20 minute wait. Patient tolerated well. 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
[2023-08-21 15:37] VITALS: BP 178/78; PULSE 53; RESP 17; TEMP 36.5; O2SAT 98
[2023-08-21 15:40] LABS: Basophils # 0.1 10^3/uL (0.0-0.1); Basophils % 0.7 %; Eosinophils # 0.3 10^3/uL (0.0-0.8); Eosinophils % 3.3 %; Lymphocytes # 3.2 10^3/uL (0.8-4.8); Lymphocytes % 33.9 %; Mean Corpuscular HGB Conc 32.9 g/dL (30-55); Mean Corpuscular Hemoglobin 29.7 pg (27-33); Mean Corpuscular Volume 90.5 fl (85-98); Mean Platelet Volume 9.2 fL (7.4-10.4); Monocytes # 0.8 10^3/uL (0.2-0.9); Monocytes % 8.3 %; Neutrophils % 53.5 %; Nucleated Red Blood Cells % 0 %; Platelet Count 357 10^3/cmm (157-399); Red Blood Count 4.64 10^6/uL (3.85-5.65); Red Cell Distribution Width 17.8 % (12.1-15.1); White Blood Count 9.53 10^3/uL (3.29-11.43)
[2023-08-21 16:07] LABS: Alanine Aminotransferase 7 U/L (0-33); Albumin Level 3.9 g/dL (3.5-5.2); Alkaline Phosphatase 80 U/L (35-105); Aspartate Amino Transferase 13 U/L (0-32); Blood Urea Nitrogen 13 mg/dL (8-23); Calcium 9.2 mg/dL (8.5-10.5); Carbon Dioxide 26 mmol/L (22-29); Chloride 105 mmol/L (98-107); Chol HDL Ratio 3.37 mg/dL (0.0-4.40); Cholesterol 226 mg/dL (0-200); Globulin 2.7 g/dL (1.3-4.6); Glucose 93 mg/dL (65-115); HDL Cholesterol 67 mg/dL (60-100); LDL Cholesterol Calculated 132 mg/dL (50-129); LDL HDL Ratio 1.97 RATIO (0.00-3.22); Osmolality Calculated 288 mOsm/kg (285-295); Sodium 139 mmol/L (136-145); T3 Free 2.4 PG/ML (2.0-4.4); Thyroid Stimulating Hormone 3.95 uIU/mL (0.27-4.20); Total Bilirubin 0.4 mg/dL (0.15-1.2); Total Protein 6.6 g/dL (6.6-8.7); Triglycerides 135 mg/dL (0-150)
== END 2023-09-19 23:59 | disposition home or self-care (01) ==
PROVIDERS: PCP Nurse Practitioner Family; Referring Provider Nurse Practitioner Family; Visit Provider Internal Medicine Medical Oncology
DX: D50.9 Iron deficiency anemia, unspecified (principal); Z08 Encounter for follow-up examination after completed treatment for malignant neoplasm; Z85.118 Personal history of other malignant neoplasm of bronchus and lung; F41.9 Anxiety disorder, unspecified; Z79.899 Other long term (current) drug therapy; Z92.21 Personal history of antineoplastic chemotherapy; Z92.3 Personal history of irradiation; Z87.891 Personal history of nicotine dependence; Z45.2 Encounter for adjustment and management of vascular access device; C34.12 Malignant neoplasm of upper lobe, left bronchus or lung; Z53.9 Procedure and treatment not carried out, unspecified reason; J98.11 Atelectasis; M48.062 Spinal stenosis, lumbar region with neurogenic claudication; G43.711 Chronic migraine without aura, intractable, with status migrainosus
CPT/HCPCS: 36591; 80053; 80061; 84443; 84481; 85025; J1642

== ENCOUNTER → 2023-08-24 11:55 | Outpatient (BNVA) | payer MEDICARE, SELFPAY | PROVIDERS: PCP Nurse Practitioner Family; Visit Provider Specialist | DX: I63.512 Cerebral infarction due to unspecified occlusion or stenosis of left middle cerebral artery (principal); I48.0 Paroxysmal atrial fibrillation; G43.711 Chronic migraine without aura, intractable, with status migrainosus | CPT/HCPCS: 64615; 99214; J0585 ==

== ENCOUNTER → 2023-09-11 13:02 | Outpatient (BNVA) | payer MEDICARE, SELFPAY | PROVIDERS: PCP Nurse Practitioner Family; Referring Provider Specialist; Visit Provider Internal Medicine | DX: R07.9 Chest pain, unspecified (principal); R00.1 Bradycardia, unspecified; I48.91 Unspecified atrial fibrillation; I10 Essential (primary) hypertension; I72.5 Aneurysm of other precerebral arteries; Z87.891 Personal history of nicotine dependence | CPT/HCPCS: 93005; 99204 ==

== ENCOUNTER 2023-11-21 08:50 | Oncology outpatient (recurring) (ONCR) | payer MEDICARE, SELFPAY ==
[2023-11-21 09:26] VITALS: BP 157/92; PULSE 62; RESP 17; TEMP 36.6; O2SAT 96
[2023-11-21 09:32] LABS: Basophils # 0.1 10^3/uL (0.0-0.1); Basophils % 0.8 %; Eosinophils # 0.4 10^3/uL (0.0-0.8); Eosinophils % 3.3 %; Hematocrit 40.2 % (36-47); Lymphocytes % 28.2 %; Mean Corpuscular HGB Conc 32.3 g/dL (30-55); Mean Corpuscular Hemoglobin 30.4 pg (27-33); Mean Corpuscular Volume 94.1 fl (85-98); Mean Platelet Volume 9.3 fL (7.4-10.4); Monocytes # 0.8 10^3/uL (0.2-0.9); Monocytes % 7.6 %; Neutrophils # 6.38 10^3/uL (1.8-7.7); Neutrophils % 59.6 %; Nucleated Red Blood Cells % 0 %; Platelet Count 395 10^3/cmm (157-399); Red Blood Count 4.27 10^6/uL (3.85-5.65); Red Cell Distribution Width 16.4 % (12.1-15.1)
[2023-11-21 09:48] LABS: Alanine Aminotransferase 12 U/L (0-33); Albumin Level 3.8 g/dL (3.5-5.2); Alkaline Phosphatase 81 U/L (35-105); Anion Gap 14.8 (5-19); Aspartate Amino Transferase 14 U/L (0-32); Blood Urea Nitrogen 12 mg/dL (8-23); Calcium 8.7 mg/dL (8.5-10.5); Carbon Dioxide 25 mmol/L (22-29); Chloride 104 mmol/L (98-107); Ferritin 37 ng/mL (15-150); Globulin 2.9 g/dL (1.3-4.6); Glucose 108 mg/dL (65-115); Iron 65 ug/dL (37-145); Osmolality Calculated 290 mOsm/kg (285-295); Percent Saturation 20.9 % (20-50); Potassium 3.8 mmol/L (3.5-5.1); Sodium 140 mmol/L (136-145); Total Bilirubin 0.3 mg/dL (0.15-1.2); Total Iron Binding Capacity 310 mcg/dl; Total Protein 6.7 g/dL (6.6-8.7); Unsaturated Iron Binding 245 ug/dL (112-347)
== END 2023-12-20 23:59 | disposition home or self-care (01) ==
PROVIDERS: PCP Nurse Practitioner Family; Referring Provider Nurse Practitioner Family; Visit Provider Internal Medicine Medical Oncology
DX: D50.9 Iron deficiency anemia, unspecified (principal); Z08 Encounter for follow-up examination after completed treatment for malignant neoplasm; F41.9 Anxiety disorder, unspecified; Z79.899 Other long term (current) drug therapy; Z92.21 Personal history of antineoplastic chemotherapy; Z92.3 Personal history of irradiation; Z87.891 Personal history of nicotine dependence; Z45.2 Encounter for adjustment and management of vascular access device; C34.12 Malignant neoplasm of upper lobe, left bronchus or lung; Z53.9 Procedure and treatment not carried out, unspecified reason; J98.11 Atelectasis; M48.062 Spinal stenosis, lumbar region with neurogenic claudication; G43.711 Chronic migraine without aura, intractable, with status migrainosus; Z98.890 Other specified postprocedural states
CPT/HCPCS: 36591; 80053; 82728; 83540; 83550; 85025; 99214; J1642

== ENCOUNTER → 2023-12-28 15:24 | Outpatient (BNVA) | payer MEDICARE, SELFPAY | PROVIDERS: PCP Nurse Practitioner Family; Visit Provider Specialist | DX: G43.711 Chronic migraine without aura, intractable, with status migrainosus (principal); F32.9 Major depressive disorder, single episode, unspecified | CPT/HCPCS: 64615; 99213; J0585 ==

== ENCOUNTER → 2024-03-28 11:47 | Outpatient (BNVA) | payer MEDICARE, SELFPAY | PROVIDERS: PCP Nurse Practitioner Family; Visit Provider Nurse Practitioner Family | DX: I48.0 Paroxysmal atrial fibrillation (principal); I50.9 Heart failure, unspecified; I11.0 Hypertensive heart disease with heart failure; R63.5 Abnormal weight gain | CPT/HCPCS: 36415; 64615; 80048; 82533; 83880; 85025; 93005; 99213; 99214; J0585 ==

== ENCOUNTER 2024-04-09 13:48 | Outpatient (CLI) | payer MEDICARE, SELFPAY ==
--- NOTE | 2024-04-09 13:00 | USCV_ITS ---
May Cummings Age: 74 Gender: F : 1950 Exam Date: 04/09/2024 14:05 Ordering Phys: Alesia Sharma Technologist: Exam Location: [facility] Indication: sob chest pain BP: 167 / 87 HR: 96 Rhythm: Sinus Technical Quality: Adequate MEASUREMENTS (Male / Female) Normal Values 2D ECHO LV Diastolic Diameter PLAX 4.5 cm 4.2 - 5.9 / 3.9 - 5.3 cm IVS Diastolic Thickness 0.9 cm 0.6 - 1.0 / 0.6 - 0.9 cm IVS Systolic Thickness 1.3 cm LVPW Diastolic Thickness 1.1 cm 0.6 - 1.0 / 0.6 - 0.9 cm LVPW Systolic Thickness 1.2 cm LVOT Diameter 2.0 cm LV Ejection Fraction 2D Teich 69.1 % LV Ejection Fraction MOD 2C 64.1 % LV Ejection Fraction 2C AL 64.9 % LA Diameter 3.5 cm RA Systolic Volume 4C AL 27.0 ml RA Systolic Volume 4C MOD 25.9 ml LA Sys Volume AL 40.7 cm cubed LA Sys Volume Index AL 21.6 cm cubed/m squared Aorta at Sinotubular Diameter 2.7 cm M-MODE LA Ao Ratio MM 1.3 AV Cusp Separation MM 1.7 cm DOPPLER AV Peak Velocity 148.0 cm/s LVOT Peak Velocity 86.0 cm/s AV Area Cont Eq vti 2.4 cm squared AV Area Cont Eq pk 1.8 cm squared MV Peak Velocity 114.0 cm/s MV Area PHT 3.9 cm squared Mitral E to A Ratio 0.8 TV Peak Velocity 187.5 cm/s TR Peak Velocity 264.0 cm/s TR Peak Gradient 27.9 mmHg TV Peak E Velocity 75.0 cm/s Right Atrial Pressure 3.0 mmHg Pulmonary Artery Systolic Pressu 30.9 mmHg PV Peak Velocity 107.0 cm/s FINDINGS Left Ventricle Normal left ventricular size and systolic function, EF 65% . No regional wall motion abnormalities. Mild left ventricular hypertrophy. No regional wall motion abnormalities. Grade I/IV diastolic dysfunction (abnormal relaxation filling pattern), normal to mildly elevated filling pressures. Right Ventricle The right ventricle is normal in size and function. Right Atrium The right atrium is normal in size. Left Atrium The left atrium is normal in size. Mitral Valve No gross abnormalities noted Aortic Valve Thickened aortic valve. Tricuspid Valve Trace tricuspid valve regurgitation. Estimated pulmonary artery peak systolic pressure 31 mmHg Pulmonic Valve Pulmonic valve not well visualized. Pericardium Normal pericardium without effusion. Aorta Normal ascending aorta dimension. IVC Inferior vena cava not visualized. CONCLUSIONS Normal left ventricular size and systolic function, EF 65% . No regional wall motion abnormalities. Mild left ventricular hypertrophy. No regional wall motion abnormalities. Grade I/IV diastolic dysfunction (abnormal relaxation filling pattern), normal to mildly elevated filling pressures. Thickened aortic valve. Trace tricuspid valve regurgitation. Estimated pulmonary artery peak systolic pressure 31 mmHg. There is no pericardial effusion. Compared to the study from 04/21/2021, there may not be a significant change Dr Kayla Vega MD FACC (Electronically Signed) Final Date: 11 Apr 2024 09:19 S
== END 2024-04-09 13:49 | disposition home or self-care (01) ==
LOC: RAD 13:50
PROVIDERS: PCP Nurse Practitioner Family; Visit Provider Nurse Practitioner Family
DX: I48.0 Paroxysmal atrial fibrillation (principal); I50.9 Heart failure, unspecified; I42.2 Other hypertrophic cardiomyopathy; I35.2 Nonrheumatic aortic (valve) stenosis with insufficiency; I50.30 Unspecified diastolic (congestive) heart failure
CPT/HCPCS: 93306

== ENCOUNTER 2024-06-26 14:11 | Oncology outpatient (recurring) (ONCR) | payer MEDICARE, SELFPAY ==
[2024-06-25 13:10] LABS: Basophils # 0.1 10^3/uL (0.0-0.1); Basophils % 0.7 %; Eosinophils # 0.4 10^3/uL (0.0-0.8); Eosinophils % 2.8 %; Hematocrit 40.3 % (36-47); Lymphocytes % 31.2 %; Mean Corpuscular HGB Conc 32.3 g/dL (30-55); Mean Corpuscular Hemoglobin 29.3 pg (27-33); Mean Platelet Volume 9.1 fL (7.4-10.4); Monocytes # 0.9 10^3/uL (0.2-0.9); Monocytes % 6.7 %; Neutrophils # 7.54 10^3/uL (1.8-7.7); Neutrophils % 58.1 %; Nucleated Red Blood Cells % 0 %; Platelet Count 443 10^3/cmm (157-399); Red Blood Count 4.43 10^6/uL (3.85-5.65); Red Cell Distribution Width 15.8 % (12.1-15.1); White Blood Count 12.96 10^3/uL (3.29-11.43)
[2024-06-25 13:31] LABS: Alanine Aminotransferase 9 U/L (0-33); Albumin Level 3.7 g/dL (3.5-5.2); Alkaline Phosphatase 90 U/L (35-105); Aspartate Amino Transferase 13 U/L (0-32); Blood Urea Nitrogen 11 mg/dL (8-23); Calcium 9.4 mg/dL (8.5-10.5); Carbon Dioxide 25 mmol/L (22-29); Chloride 105 mmol/L (98-107); Globulin 3.1 g/dL (1.3-4.6); Glucose 117 mg/dL (65-115); Osmolality Calculated 292 mOsm/kg (285-295); Sodium 141 mmol/L (136-145); Total Bilirubin 0.3 mg/dL (0.15-1.2); Total Protein 6.8 g/dL (6.6-8.7)
[2024-06-25 15:17] LABS: Thyroid Stimulating Hormone 4.13 uIU/mL (0.27-4.20)
[2024-06-25 15:28] LABS: Vitamin B12 > 2000 pg/mL (232-1245)
--- NOTE | 2024-06-26 14:18 | CT_ITS ---
WS: [id number] CT CHEST, ABDOMEN AND PELVIS WITH CONTRAST HISTORY: lung cancer TECHNIQUE: Contiguous 5 mm axial imaging performed through the chest, abdomen and pelvis with IV cont rast, oral contrast has been provided. Coronal and sagittal reformats chest. Coronal and sagittal ref ormats through the abdomen and pelvis. All CT scans at [facility] use at least one of these d ose optimization techniques: automated exposure control; mA and/or kV adjustment per patient size (in cludes targeted exams where dose is matched to clinical indication); or iterative reconstruction. CONTRAST: Omnipaque 350; 100 mL IV. DLP: 1125.44 mGy.cm COMPARISON: 06/08/2023, 12/23/2022 and 08/08/[address]: Advanced chronic emphysematous changes. Post treatment changes for neoplasm noted along the medial LEFT upper lobe. There is bronchiectasis with pleural parenchymal scarring and volume loss wh ich is similar to prior studies with no progression. No recurrent tumor is identified. No mediastinal or hilar adenopathy. Heart is normal size. No pericardial or pleural effusions. Mild atherosclerosis aorta. RIGHT Mediport is present. Central pulmonary arteries are normal. Abdomen CT: Normal liver and gallbladder. No bile duct dilatation. Normal portal vein. Mild pancreati c atrophy with no mass. Prior splenectomy. There is several spleen like nodules in the LEFT upper abd omen which are probably splenules or residual spleen which are stable. No adrenal mass. Kidneys are n ormal size with no obstruction. Exophytic cortical cyst lower pole RIGHT kidney measures 8 mm and sta ble. There are few additional too small to characterize hypodensities within the RIGHT kidney. Mild a therosclerosis aorta. No aneurysm. SMA and celiac axis are patent. Normally distended stomach. No small bowel obstruction. Normal appendix. Diffuse constipation and mil d distal diverticulosis. No acute diverticulitis. No ascites or adenopathy. Ventral abdominal wall um bilical hernia contains fat only. This umbilical hernia is just to the LEFT of midline. There is an a dditional supraumbilical hernia containing fat in the midline. Pelvic CT: Well-distended urinary bladder. No free fluid. No pelvic mass. No osteoblastic or osteolytic bone disease. Degenerative rotary scoliosis lumbar spine. Advanced dege nerative changes are most significant at L2-3. CT/CT chest abdpel w/*[id number] IMPRESSION: 1. Stable posttreatment changes in the medial LEFT upper lobe. There is volume loss with pleural parenchymal fibrosis and bronchiectasis. No recurrent mass. 2. No mediastinal or hilar adenopathy within the chest. 3. Advanced chronic emphysema. 4. No metastatic disease within the liver or adrenal glands. 5. Prior splenectomy. 6. Supraumbilical and periumbilical fat-containing abdominal hernias. 7. Advanced degenerative changes in the lumbar spine.
[2024-06-26] MEDS: iohexol 350 mg/mL 500 mL Btl (per mL) IV (15:28)
[2024-06-26] MEDS: iohexol 350 mg/mL 500 mL Btl (per mL) PO (15:33)
== END 2024-07-20 23:59 | disposition home or self-care (01) ==
LOC: RAD 14:11 → ONCMED 07-04 10:53
PROVIDERS: PCP Nurse Practitioner Family; Referring Provider Nurse Practitioner Family; Visit Provider Internal Medicine Medical Oncology
DX: C34.12 Malignant neoplasm of upper lobe, left bronchus or lung; J43.8 Other emphysema; Z90.81 Acquired absence of spleen; K42.9 Umbilical hernia without obstruction or gangrene; M51.36 Other intervertebral disc degeneration, lumbar region
CPT/HCPCS: 36591; 71260; 74177; 80053; 82607; 84443; 85025; 99214; Q9967

== ENCOUNTER 2024-08-31 08:11 | Emergency (ER) | payer MEDICARE, SELFPAY ==
--- NOTE | 2024-08-31 08:19 | ECG_ITS ---
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 Measurements Intervals Clay Rate: 77 P: 96 SD: 189 QRS: 71 QRSD: 81 T: 65 QT: 390 QTc: 444 Interpretive Statements SINUS RHYTHM NONSPECIFIC T-WAVE ABNORMALITY Compared to ECG 03/28/2024 11:55:05 T-wave abnormality now present Electronically Signed On 09-02-2024 14:13:11 CDT by Salvatore Jones M.D. [email or web address]
--- NOTE | 2024-08-31 08:22 | XRR_ITS ---
PROCEDURE INFORMATION: Exam: XR Chest Exam date and time: 08/31/2024 9:25 AM Age: 74 years old Clinical indication: Cough and dyspnea; Patient HX: PT has a history of copd. PT states she is on a blood thinner. ; Additional info: Dyspnea/cough TECHNIQUE: Imaging protocol: Radiologic exam of the chest. Views: 1 view. COMPARISON: CT chest abdpel w/*[id number] 06/26/2024 3:24 PM FINDINGS: Tubes, catheters and devices: Right anterior chest wall infusion port with its tip terminating near the cavoatrial junction. Lungs: Unremarkable. No consolidation. Pleural spaces: Unremarkable. No pleural effusion. No pneumothorax. Heart/Mediastinum: Unremarkable. No cardiomegaly. Bones/joints: Unremarkable. XR/XR chest 1V portable [id number] IMPRESSION: No acute findings.
[2024-08-31 08:26] VITALS: BP 146/76; PULSE 79; RESP 21; TEMP 36.8; O2SAT 100; BMI 30.2
--- NOTE | 2024-08-31 08:34 | W.ED.FALL ---
HPI - Fall General: Chief Complaint: Fall Stated Complaint: SOB Time Seen by Provider: 08/31/24 08:20 History of Present Illness: 72-year-old female presents the emergency room with complaint of numbness in her hands after a fall. She is also somewhat short of breath. She has a history of left upper lobe malignant neoplasm. No reported fever sweats chills or productive cough. She fell 2 days ago did not hurt anything when she fell but now states she has numbness and tingling she is tachypneic on arrival here. She is normal oxygen saturations not requiring any supplemental oxygen denies chest pain. Associated symptoms-after fall: Denies abdominal pain, chest pain or neck pain Related Data Home Medications Medication Instructions Recorded Confirmed polyethylene glycol 3350 17 gram 17 gm PO DAILY@11/19/19 06/25/24 oral powder packet (Miralax) Probiotic 2 tab PO QAM 03/08/21 06/25/24 atenolol 50 mg tablet 50 mg PO DAILY@03/08/21 06/25/24 clopidogrel 75 mg tablet 75 mg PO DAILY@03/08/21 06/25/24 multivit,Ca,iron,onv-XB-oxkqsuw-yxuokdd-eazv-EDGQ 2 cap PO DAILY 03/08/21 06/25/24 3 mg-133 mcg capsule pantoprazole 40 mg tablet,delayed 40 mg PO BID 03/08/21 06/25/24 release (Protonix) wheat dextrin 5 gram/7.4 gram oral See Rx Instructions .Route .COMPLEX 03/08/21 06/25/24 powder (Benefiber Healthy Shape) methimazole 5 mg tablet 10 mg PO DAILY 12/06/22 06/25/24 sucralfate 1 g PO Q6H 12/26/22 06/25/24 ferrous sulfate-vitamin C 39 mg-75 See Rx Instructions PO DAILY 05/03/23 06/25/24 mg tablet albuterol (refill) 90 mcg inhalation 09/11/23 06/25/24 mcg/actuation aerosol inhaler Previous Rx's Medication Instructions Recorded sumatriptan succinate 100 mg tablet See Rx Instructions .Route 04/10/23 .COMPLEX #9 tabs onabotulinumtoxinA 100 unit 155 unit SUBCUT ONCE #2 ea 07/19/23 solution for injection (Botox) apixaban 5 mg tablet (Eliquis) 5 mg PO BID #180 tabs 09/11/23 oxycodone 5 mg tablet 5 mg PO Q4H PRN pain 30 days #120 11/22/23 tabs umeclidinium 62.5 mcg-vilanterol 1 inh inhalation DAILY #60 ea 05/02/24 25 mcg/actuation powdr for inhalation (Anoro Ellipta) furosemide 20 mg tablet 20 mg PO DAILY PRN edema #30 tabs 06/28/24 fluticasone fur. 100 mcg-umeclid 1 inh inhalation Q24H #60 ea 07/11/24 62.5 mcg-vilant 25 mcg inhalat.powder (Trelegy Ellipta) doxycycline hyclate 100 mg capsule 100 mg PO BID 10 days #20 caps 08/31/24 prednisone 20 mg tablet 20 mg PO TID #15 tabs 08/31/24 Allergies Allergy/AdvReac Type Severity Reaction Status Date / Time No Known Allergies Allergy Verified 06/25/24 13:27 Review of Systems Const: Denies: fever(s) or chills Card: Denies: chest pain Resp: Denies: dyspnea GI: Denies: abdominal pain : Denies: dysuria, urinary frequency or urinary urgency Musc: Denies: neck pain or back pain Skin/Breast: Denies: rash PFSH ED PFSH: Medical History Chronic migraine without aura, intractable, with status migrainosus Non-small cell lung cancer Chronic migraine Lumbar spinal stenosis Degenerative joint disease of spine COPD (chronic obstructive pulmonary disease) Hyperthyroidism Continue on home methimazole Basilar artery aneurysm Dyslipidemia Hypertension Anxiety disorder Insomnia Plantar fasciitis Statin intolerance Gastritis Surgical History History of esophagogastroduodenoscopy (EGD) 2019 -gastritis Status post colonoscopy 2018: Normal repeat in 10 years S/P coil embolization of cerebral aneurysm 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, stent subsequently removed H/O section H/O splenectomy 2007 Family History Mother Diabetes Father Heart disease Grandmother Stroke Other Suicide Denies family history of CAD (coronary artery disease) Clotting disorder Dementia Hyperlipidemia Psychiatric illness Chronic kidney disease (CKD) Anesthesia complication Bleeding disorder Lung disease Cancer Hypertension Social History Smoking and tobacco/nicotine status: never used tobacco/nicotine Quit status (tobacco/nicotine): has quit using Year quit tobacco: 2017 [id number] Second hand smoke exposure: No Alcohol intake: former Substance/Drug Use: current Substance/Drug use frequency: few times a week Lives independently: Yes Household members: spouse Marital status: service: No Current occupational status: retired Pets and animals: Yes Do you think of yourself as: Straight/Heterosexual Current gender identity: Female Physical Exam Const: COMMON NORMALS: no acute distress GENERAL APPEARANCE: cooperative and comfortable ORIENTATION/CONSCIOUSNESS: Yes awake, Yes oriented to person, Yes oriented to place and Yes oriented to time HENMT: COMMON NORMALS: normocephalic, atraumatic and hearing grossly normal bilaterally HEAD & SCALP: normocephalic and atraumatic Neck/C-Spine: COMMON NORMALS: full ROM, no lymphadenopathy, supple and no meningeal signs GENERAL: Yes normal visual inspection OTHER: Negative Spurling sign Resp: COMMON NORMALS: normal respiratory effort, No retractions, No use of accessory muscles and clear to auscultation bilaterally AUSCULTATION: clear to auscultation bilaterally Cardio: COMMON NORMALS: regular rate, regular rhythm and No murmurs present (Cardio) RATE: regular rate RHYTHM: regular rhythm GI: COMMON NORMALS: Soft to palpation and No hepatosplenomegaly present AUSCULTATION: Yes normoactive bowel sounds PALPATION: Yes Soft to palpation, No Tenderness to palpation present (GI), No Guarding due to palpation present (GI) and Yes No hepatosplenomegaly present Extremity: COMMON NORMALS: normal to inspection, capillary refill normal, no clubbing, cyanosis or edema, no calf tenderness and no pedal edema OTHER: Blast Hole Driller strength equal bilaterally sensation to the upper extremities normal to sharp touch bilaterally Neurovascularly intact Neuro: SENSORIUM/ORIENTATION: Yes oriented to person, Yes oriented to place and Yes oriented to time MENINGEAL SIGNS: Yes no meningeal signs Skin: COMMON NORMALS: no rashes or lesions noted GENERAL SKIN EXAM: no rashes or lesions noted Course Vital Signs: Vital signs: Vital Signs Temperature 98.2 F 08/31/24 08:26 Pulse Rate 87 08/31/24 12:48 Respiratory Rate 18 08/31/24 09:06 Blood Pressure 137/100 08/31/24 12:48 Pulse Oximetry 93 08/31/24 12:48 Oxygen Delivery Me thod Room Air 08/31/24 09:06 Oxygen Flow Rate 95 08/31/24 09:06 MDM - Fall Medical Decision Making Patient has no neck pain dog catcher strength equal bilaterally no focal neurologic deficits are noted she does have a comminuted mildly displaced patellar fracture. No focal neurologic deficits noted. Examination of the upper extremities was essentially normal. She complaining of discomfort mostly from the elbows distally. Do not believe cervical nerve impingement if she has persistent symptoms she may need further evaluation for peripheral neuropathy. Lab Data 08/31/24 08:45 08/31/24 08:45 Radiology Impressions Chest X-Ray 08/31/24 08:22 IMPRESSION: No acute findings. Laboratory Results WBC 12.62 10^3/uL (3.29-11.43) H 08/31/24 08:45 RBC 4.80 10^6/uL (3.85-5.65) 08/31/24 08:45 Hgb 13.30 g/dL (11.27-16.99) 08/31/24 08:45 Hct 42.4 % (36-47) 08/31/24 08:45 MCV 88.3 fl (85-98) 08/31/24 08:45 MCH 27.7 pg (27-33) 08/31/24 08:45 MCHC 31.4 g/dL (30-55) 08/31/24 08:45 RDW 16.7 % (12.1-15.1) H 08/31/24 08:45 Plt Count 506 10^3/cmm (157-399) H 08/31/24 08:45 MPV 8.9 fL (7.4-10.4) 08/31/24 08:45 Neut % (Auto) 58.9 % 08/31/24 08:45 Lymph % (Auto) 31.7 % 08/31/24 08:45 [place] % (Auto) 6.3 % 08/31/24 08:45 Eos % (Auto) 2.0 % 08/31/24 08:45 Baso % (Auto) 0.8 % 08/31/24 08:45 Neut # (Auto) 7.43 10^3/uL (1.8-7.7) 08/31/24 08:45 Lymph # (Auto) 4.0 10^3/uL (0.8-4.8) 08/31/24 08:45 [place] # (Auto) 0.8 10^3/uL (0.2-0.9) 08/31/24 08:45 Eos # (Auto) 0.3 10^3/uL (0.0-0.8) 08/31/24 08:45 Baso # (Auto) 0.1 10^3/uL (0.0-0.1) 08/31/24 08:45 Nucleated RBC % (auto) 0 % 08/31/24 08:45 Nucleated RBCs # 0.0 /100WBC 08/31/24 08:45 Specimen Type Arterial 08/31/24 09:17 Sample Site Brachial, left 08/31/24 09:17 ABG pH 7.48 (7.35-7.45) H 08/31/24 09:17 ABG pCO2 33.0 mmHg (35-45) L 08/31/24 09:17 ABG pO2 68.1 mmHg (80.0-100.0) L 08/31/24 09:17 ABG PO2/FiO2 Ratio 324 08/31/24 09:17 ABG HCO3 24.3 mmol/L (22-26) 08/31/24 09:17 ABG O2 Saturation 95.9 08/31/24 09:17 ABG Base Excess 1.3 mmol/L (-2.0-2.0) 08/31/24 09:17 [place] Test N/a 08/31/24 09:17 A-a O2 Gradient 5.3 mmHg (5-10) 08/31/24 09:17 Hematocrit 43.4 % (37-47) 08/31/24 09:17 Hgb O2 Saturation 93.6 % (95-100) L 08/31/24 09:17 Carboxyhemoglobin 1.3 %THgb (0.4-20.1) 08/31/24 09:17 Methemoglobin 1.1 % (0.4-1.5) 08/31/24 09:17 Total Hemoglobin 14.1 g/dL (12-16) 08/31/24 09:17 Sodium 147.0 mmol/L (131-143) H 08/31/24 09:17 Potassium 3.0 mmol/L (3.5-5.0) L 08/31/24 09:17 Glucose 137.0 mg/dL (70-115) H 08/31/24 09:17 Ionized Calcium 1.2 mmol/L (1.1-1.4) 08/31/24 09:17 O2 Delivery Device None 08/31/24 09:17 FiO2 21.0 % 08/31/24 09:17 Civil Service Worker ID glc 08/31/24 09:17 Sodium 145 mmol/L (136-145) 08/31/24 08:45 Potassium 3.3 mmol/L (3.5-5.1) L 08/31/24 08:45 Chloride 108 mmol/L (98-107) H 08/31/24 08:45 Carbon Dioxide 26 mmol/L (22-29) 08/31/24 08:45 Anion Gap 14.3 (5-19) 08/31/24 08:45 BUN 15 mg/dL (8-23) 08/31/24 08:45 Creatinine 1.1 mg/dL (0.5-0.9) H 08/31/24 08:45 GFR Calculation Not Reportable 08/31/24 08:45 Glucose 134 mg/dL (65-115) H 08/31/24 08:45 Calculated Osmolality 303 mOsm/kg (285-295) H 08/31/24 08:45 Calcium 8.7 mg/dL (8.5-10.5) 08/31/24 08:45 Total Bilirubin 0.4 mg/dL (0.15-1.2) 08/31/24 08:45 AST 20 U/L (0-32) 08/31/24 08:45 ALT 22 U/L (0-33) 08/31/24 08:45 Alkaline Phosphatase 79 U/L (35-105) 08/31/24 08:45 Total Protein 6.7 g/dL (6.6-8.7) 08/31/24 08:45 Albumin 3.6 g/dL (3.5-5.2) 08/31/24 08:45 Globulin 3.1 g/dL (1.3-4.6) 08/31/24 08:45 All radiology interpretation(s) finalized by discharge Discharge Plan Discharge Patient Disposition: Home Clinical Impression: Acute exacerbation of chronic obstructive pulmonary disease, Fall, Numbness and tingling in both hands Condition: Stable Prescriptions: New doxycycline hyclate 100 mg capsule 100 mg PO BID 10 Days Qty: 20 0RF prednisone 20 mg tablet 20 mg PO TID Qty: 15 0RF Rx Instructions: 1 p.o. 3 times daily x3 days, 1 p.o. twice daily x2 days, 1 p.o. daily x2 days No Action polyethylene glycol 3350 [Miralax] 17 gram powder in packet 17 gm PO DAILY@08 ferrous sulfate-vitamin C 39-75 mg tablet See Rx Instructions PO DAILY Rx Instructions: 1 chewable orally daily; albuterol (refill) 90 mcg/actuation aerosol inhalation Eliquis 5 mg tablet 5 mg PO BID Qty: 180 3RF methimazole 5 mg tablet 10 mg PO DAILY Botox 100 unit recon soln 155 unit SUBCUT ONCE Qty: 2 0RF sumatriptan succinate 100 mg tablet See Rx Instructions .ROUTE .COMPLEX Qty: 9 0RF Dose Instruction: TAKE ONE TABLET BY MOUTH TWICE DAILY NEEDED FOR migraine HEADACHE wait AT least TWO HOURS between doses Rx Instructions: TAKE 1 TABLET PO TWICE DAILY NEEDED FOR migraine HEADACHE wait AT least 2 HOURS between doses, patient must have appointment for refill oxycodone 5 mg tablet 5 mg PO Q4H PRN (Reason: pain) 30 Days Qty: 120 0RF Anoro Ellipta 62.5-25 mcg/actuation blister with device 1 inh inhalation DAILY Qty: 60 2RF furosemide 20 mg tablet 20 mg PO DAILY PRN (Reason: edema) Qty: 30 3RF Trelegy Ellipta 100-62.5-25 mcg blister with device 1 inh inhalation Q24H Qty: 60 0RF mv,Ca,ir,Us-MK-rqa-gel-patty-PAB 3-133 mg-mcg Capsule 2 cap PO DAILY Benefiber Healthy Shape 5 gram/7.4 gram Powder See Rx Instructions .ROUTE .COMPLEX Rx Instructions: 1 TSP PO QAM Probiotic 2 tab PO QAM clopidogrel 75 mg tablet 75 mg PO DAILY@20 Hold Instructions: Doctor's Order pantoprazole [Protonix] 40 mg tablet,delayed release (/EC) 40 mg PO BID atenolol 50 mg tablet 50 mg PO DAILY@20 sucralfate 1 g PO Q6H Discharge Orders: Discharge ED (Routine); Ordered 08/31/24 Ordered By: Jayden Otero Referrals: Maria Gomez APN [Primary Care Provider] - Patient Instructions: Opioid Safety, Pain Management Activity Restrictions/Additional Instructions: Thank you for choosing [facility] for your healthcare needs today. It is very important that you follow up as instructed or that you return to the Emergency Department should you have concerns or if your condition changes or worsens in any way. You were seen today for complaints of shortness of breath as well as numbness tingling in her hands. You are given steroids antibiotics recommend use albuterol regularly. Shortness of breath likely caused by exacerbation of your COPD. If you continue to have difficulty with your hands recommend you follow-up with your primary care doctor for further evaluation including possible peripheral nerve testing Coding Level of Care Code ED Customer Loyalty Representative for Judy Mcgrath
[2024-08-31 08:58] LABS: Basophils # 0.1 10^3/uL (0.0-0.1); Basophils % 0.8 %; Eosinophils # 0.3 10^3/uL (0.0-0.8); Hematocrit 42.4 % (36-47); Lymphocytes % 31.7 %; Mean Corpuscular HGB Conc 31.4 g/dL (30-55); Mean Corpuscular Hemoglobin 27.7 pg (27-33); Mean Corpuscular Volume 88.3 fl (85-98); Mean Platelet Volume 8.9 fL (7.4-10.4); Monocytes # 0.8 10^3/uL (0.2-0.9); Monocytes % 6.3 %; Neutrophils # 7.43 10^3/uL (1.8-7.7); Neutrophils % 58.9 %; Nucleated Red Blood Cells % 0 %; Platelet Count 506 10^3/cmm (157-399); Red Cell Distribution Width 16.7 % (12.1-15.1); White Blood Count 12.62 10^3/uL (3.29-11.43)
[2024-08-31] MEDS: ipratropium-albuterol 3 mL Neb INHALATION (09:04)
[2024-08-31 09:06] VITALS: PULSE 75; RESP 18
[2024-08-31 09:12] LABS: Alanine Aminotransferase 22 U/L (0-33); Albumin Level 3.6 g/dL (3.5-5.2); Alkaline Phosphatase 79 U/L (35-105); Anion Gap 14.3 (5-19); Aspartate Amino Transferase 20 U/L (0-32); Blood Urea Nitrogen 15 mg/dL (8-23); Calcium 8.7 mg/dL (8.5-10.5); Carbon Dioxide 26 mmol/L (22-29); Chloride 108 mmol/L (98-107); Creatinine Clr Calc Pharmacy 42.1166; Globulin 3.1 g/dL (1.3-4.6); Glucose 134 mg/dL (65-115); Osmolality Calculated 303 mOsm/kg (285-295); Potassium 3.3 mmol/L (3.5-5.1); Sodium 145 mmol/L (136-145); Total Bilirubin 0.4 mg/dL (0.15-1.2); Total Protein 6.7 g/dL (6.6-8.7)
[2024-08-31 09:29] LABS: ABG PH Result 7.48 (7.35-7.45); Alveolar-Arterial Oxygen Gradi 5.3 mmHg (5-10); Arterial Blood Gas Hematocrit 43.4 % (37-47); Base Excess ABG 1.3 mmol/L (-2.0-2.0); Blood Gas Operator Identificat glc; Blood Gas Sample Site Brachial, left; Blood Gas Sample Type Arterial; Carboxyhemoglobin 1.3 %THgb (0.4-20.1); HCO3 ABG 24.3 mmol/L (22-26); HGB O2 Sat 93.6 % (95-100); Ionized Calcium Level - ABG 1.2 mmol/L (1.1-1.4); Methemoglobin 1.1 % (0.4-1.5); Oxygen Saturation ABG 95.9; PO2 ABG 68.1 mmHg (80.0-100.0); PO2 FiO2 Ratio Arterial Blood 324; Total Hemoglobin 14.1 g/dL (12-16)
[2024-08-31] MEDS: dexamethasone 10 mg/mL INJ IM (09:34)
[2024-08-31 10:05] VITALS: PULSE 88; O2SAT 91
[2024-08-31 10:48] VITALS: BP 128/71; PULSE 85; O2SAT 92
[2024-08-31 12:48] VITALS: BP 137/100; PULSE 87; O2SAT 93
== END 2024-08-31 13:01 | disposition home or self-care (01) ==
PROVIDERS: Emergency Provider Family Medicine; PCP Nurse Practitioner Family
DX: R20.0 Anesthesia of skin (principal); J44.1 Chronic obstructive pulmonary disease with (acute) exacerbation; Z79.01 Long term (current) use of anticoagulants; Z79.02 Long term (current) use of antithrombotics/antiplatelets; Z87.891 Personal history of nicotine dependence; Z85.118 Personal history of other malignant neoplasm of bronchus and lung; E78.5 Hyperlipidemia, unspecified; I10 Essential (primary) hypertension
CPT/HCPCS: 36600; 71045; 80051; 80053; 82330; 82805; 85025; 93005; 94640; 96372; 99285; J1100

== ENCOUNTER 2024-09-05 09:06 | Emergency (ER) | payer MEDICARE, SELFPAY ==
[2024-09-05] VITALS (7 sets, daily range): BP systolic 140–165; BP diastolic 72–114; PULSE 64–107; RESP 16–28; TEMP 36.7; O2SAT 92–95
--- NOTE | 2024-09-05 09:08 | ECG_ITS ---
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
--- NOTE | 2024-09-05 09:08 | XR_ITS ---
WS: [id number] Portable AP upright chest, 09/05/2024 Clinical Data: sob Comparison: Portable chest, 08/31/2024 Findings: No nodules, masses or effusions are seen. The heart is normal. The pulmonary vascularity is not increased. No pneumonia or pneumothorax is seen. There is scarring adjacent to the aortic arch o n the left unchanged. The descending thoracic aorta shows minimal tortuosity. There is an infusion po rt ending in the superior vena cava unchanged. Monitor leads are on the chest wall. XR/XR chest 1V portable [id number] Impression: 1. Left upper lobe scarring adjacent to the aortic arch unchanged. 2. Atherosclerosis.
--- NOTE | 2024-09-05 09:18 | ED_ITS ---
HPI - SOB/Dyspnea 2 General: Chief Complaint: Shortness of Breath/Dyspnea Stated Complaint: SOB Time Seen by Provider: 09/05/24 09:07 Source: patient and EMS Mode of arrival: EMS Limitations: no limitations History of Present Illness: HPI Narrative: 74-year-old female has a history of lung cancer in the past she states that she is in remission she also history of COPD states she has been having shortness of breath for 1 to 2 months with a slight cough. She states that today she felt little more short of breath and had some increased wheezing did receive breathing treatment route that did improve her symptoms. She is requiring any oxygen currently denies any pain or fever Associated symptoms: Deny abdominal pain, chest pain, fever(s), nausea or vomiting Related Data Home Medications Medication Instructions Recorded Confirmed atenolol 50 mg tablet 50 mg PO DAILY@03/08/21 09/05/24 clopidogrel 75 mg tablet 75 mg PO DAILY@03/08/21 09/05/24 pantoprazole 40 mg tablet,delayed 40 mg PO BID 03/08/21 09/05/24 release (Protonix) escitalopram oxalate 20 mg tablet 20 mg PO DAILY 09/05/24 09/05/24 loratadine 10 mg tablet 10 mg PO DAILY 09/05/24 09/05/24 Previous Rx's Medication Instructions Recorded sumatriptan succinate 100 mg tablet See Rx Instructions .Route 04/10/23 .COMPLEX #9 tabs apixaban 5 mg tablet (Eliquis) 5 mg PO BID #180 tabs 09/11/23 furosemide 20 mg tablet 20 mg PO DAILY PRN edema #30 tabs 06/28/24 fluticasone fur. 100 mcg-umeclid 1 inh inhalation Q24H #60 ea 07/11/24 62.5 mcg-vilant 25 mcg inhalat.powder (Trelegy Ellipta) doxycycline hyclate 100 mg capsule 100 mg PO BID 10 days #20 caps 08/31/24 prednisone 20 mg tablet 20 mg PO TID #15 tabs 08/31/24 prednisone 50 mg tablet 50 mg PO DAILY #5 tabs 09/05/24 Allergies Allergy/AdvReac Type Severity Reaction Status Date / Time No Known Allergies Allergy Verified 06/25/24 13:27 Review of Systems 2 Const: Denies: fever(s), chills, body aches or change in appetite ENMT: Denies: throat pain or dental pain Card: Denies: chest pain Resp: Reports: dyspnea and non-productive cough GI: Denies: abdominal pain, nausea, vomiting or diarrhea Musc: Denies: neck pain or back pain Skin/Breast: Denies: rash Neuro: Denies: headache(s) PFSH ED 2 PFSH: Medical History Chronic migraine without aura, intractable, with status migrainosus Non-small cell lung cancer Chronic migraine Lumbar spinal stenosis Degenerative joint disease of spine COPD (chronic obstructive pulmonary disease) Hyperthyroidism Continue on home methimazole Basilar artery aneurysm Dyslipidemia Hypertension Anxiety disorder Insomnia Plantar fasciitis Statin intolerance Gastritis Surgical History History of esophagogastroduodenoscopy (EGD) 2019 -gastritis Status post colonoscopy 2018: Normal repeat in 10 years S/P coil embolization of cerebral aneurysm 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, stent subsequently removed H/O section H/O splenectomy 2007 Family History Mother Diabetes Father Heart disease Grandmother Stroke Other Suicide Denies family history of CAD (coronary artery disease) Clotting disorder Dementia Hyperlipidemia Psychiatric illness Chronic kidney disease (CKD) Anesthesia complication Bleeding disorder Lung disease Cancer Hypertension Social History Smoking and tobacco/nicotine status: never used tobacco/nicotine Quit status (tobacco/nicotine): has quit using Year quit tobacco: 2017 [id number] Second hand smoke exposure: No Alcohol intake: former Substance/Drug Use: current Substance/Drug use frequency: few times a week Lives independently: Yes Household members: spouse Marital status: service: No Current occupational status: retired Pets and animals: Yes Do you think of yourself as: Straight/Heterosexual Current gender identity: Female Physical Exam 2 Const: COMMON NORMALS: patient oriented x3 HENMT: COMMON NORMALS: normocephalic and atraumatic HEAD & SCALP: n ormocephalic and atraumatic Eye: COMMON NORMALS: Equal, round and reactive pupils present and EOMs intact bilaterally PUPIL: Yes Equal, round and reactive pupils present Neck/C-Spine: COMMON NORMALS: full ROM and supple Chest: COMMONS NORMALS: normal inspection of the chest and normal palpation of entire chest wall Resp: COMMON NORMALS: normal respiratory effort, No retractions, No use of accessory muscles and clear to auscultation bilaterally AUSCULTATION: clear to auscultation bilaterally Cardio: COMMON NORMALS: regular rate, regular rhythm and No murmurs present (Cardio) RATE: regular rate RHYTHM: regular rhythm GI: COMMON NORMALS: Normal to inspection, nondistended, normoactive bowel sounds present, Soft to palpation, non-tender and no masses PALPATION: Yes Soft to palpation Extremity: COMMON NORMALS: normal to inspection and full ROM Neuro: COMMON NORMALS: patient oriented x3, moves all extremities and no focal motor deficits Psych: COMMON NORMALS: mental status grossly normal, Normal thought process present and cooperative THOUGHT PROCESS: Normal thought process present Skin: COMMON NORMALS: no rashes or lesions noted and no wounds GENERAL SKIN EXAM: no rashes or lesions noted Course 2 Vital Signs: Vital signs: Vital Signs Temperature 98.1 F 09/05/24 09:07 Pulse Rate 70 09/05/24 12:22 Respiratory Rate 20 H 09/05/24 12:22 Blood Pressure 154/76 09/05/24 12:22 Pulse Oximetry 92 09/05/24 12:22 Oxygen Delivery Me thod Room Air 09/05/24 11:00 MDM - SOB/Dyspnea Medical Decision Making Patient presents here with likely COPD exacerbation patient is much improved after breathing treatment no signs of pneumonia CTA showed no PE or pneumonia patient stable for discharge follow-up PCP return if worsening. Medical Records I reviewed the patient's medical records. Lab Data I reviewed the patient's lab results. 09/05/24 09:05 09/05/24 09:05 Labs/Radiology: Radiology Impressions Chest X-Ray 09/05/24 09:08 Impression: 1. Left upper lobe scarring adjacent to the aortic arch unchanged. 2. Atherosclerosis. Chest CTA 09/05/24 10:46 IMPRESSION: 1. No pulmonary embolism. 2. Stable posttreatment changes medial LEFT upper lobe. 3. No adenopathy. 4. No pneumonia. Laboratory Results WBC 21.26 10^3/uL (3.29-11.43) H 09/05/24 09:05 RBC 4.60 10^6/uL (3.85-5.65) 09/05/24 09:05 Hgb 12.70 g/dL (11.27-16.99) 09/05/24 09:05 Hct 40.5 % (36-47) 09/05/24 09:05 MCV 88.0 fl (85-98) 09/05/24 09:05 MCH 27.6 pg (27-33) 09/05/24 09:05 MCHC 31.4 g/dL (30-55) 09/05/24 09:05 RDW 17.9 % (12.1-15.1) H 09/05/24 09:05 Plt Count 461 10^3/cmm (157-399) H 09/05/24 09:05 MPV 9.2 fL (7.4-10.4) 09/05/24 09:05 Neut % (Auto) 60.2 % 09/05/24 09:05 Lymph % (Auto) 32.9 % 09/05/24 09:05 [place] % (Auto) 6.1 % 09/05/24 09:05 Eos % (Auto) 0.2 % 09/05/24 09:05 Baso % (Auto) 0.1 % 09/05/24 09:05 Neut # (Auto) 12.78 10^3/uL (1.8-7.7) H 09/05/24 09:05 Lymph # (Auto) 7.0 10^3/uL (0.8-4.8) H 09/05/24 09:05 [place] # (Auto) 1.3 10^3/uL (0.2-0.9) H 09/05/24 09:05 Eos # (Auto) 0.1 10^3/uL (0.0-0.8) 09/05/24 09:05 Baso # (Auto) 0.0 10^3/uL (0.0-0.1) 09/05/24 09:05 Nucleated RBC % (auto) 0 % 09/05/24 09:05 Nucleated RBCs # 0.0 /100WBC 09/05/24 09:05 D-Dimer 1.50 ug/mLFEU (0-0.59) H 09/05/24 09:05 Sodium 143 mmol/L (136-145) 09/05/24 09:05 Potassium 3.1 mmol/L (3.5-5.1) L 09/05/24 09:05 Chloride 105 mmol/L (98-107) 09/05/24 09:05 Carbon Dioxide 25 mmol/L (22-29) 09/05/24 09:05 Anion Gap 16.1 (5-19) 09/05/24 09:05 BUN 14 mg/dL (8-23) 09/05/24 09:05 Creatinine 1.0 mg/dL (0.5-0.9) H 09/05/24 09:05 GFR Calculation Not Reportable 09/05/24 09:05 Glucose 101 mg/dL (65-115) 09/05/24 09:05 Calculated Osmolality 297 mOsm/kg (285-295) H 09/05/24 09:05 Calcium 8.6 mg/dL (8.5-10.5) 09/05/24 09:05 Total Bilirubin 0.5 mg/dL (0.15-1.2) 09/05/24 09:05 AST 16 U/L (0-32) 09/05/24 09:05 ALT 27 U/L (0-33) 09/05/24 09:05 Alkaline Phosphatase 76 U/L (35-105) 09/05/24 09:05 NT-Pro-B Natriuret Pep 541 pg/mL (0-125) H 09/05/24 09:05 Total Protein 6.3 g/dL (6.6-8.7) L 09/05/24 09:05 Albumin 3.7 g/dL (3.5-5.2) 09/05/24 09:05 Globulin 2.6 g/dL (1.3-4.6) 09/05/24 09:05 Coronavirus (PCR) Negative (Negative) 09/05/24 10:31 Influenza A (PCR) Negative (Negative) 09/05/24 10:31 Influenza Type B (PCR) Negative (Negative) 09/05/24 10:31 RSV (PCR) Negative (Negative) 09/05/24 10:31 All radiology interpretation(s) finalized by discharge EKG Data EKG 1: I personally reviewed and interpreted this EKG as follows: EKG Interpretation Date: 09/05/24 EKG interpretation time: 09:08 Interpretation: nsr hr [address] elevation qrs 85 qtc 422 Discharge Plan Discharge Patient Disposition: Home Clinical Impression: Acute exacerbation of chronic obstructive airways disease Condition: Stable Prescriptions: New prednisone 50 mg tablet 50 mg PO DAILY Qty: 5 0RF No Action Eliquis 5 mg tablet 5 mg PO BID Qty: 180 3RF sumatriptan succinate 100 mg tablet See Rx Instructions .ROUTE .COMPLEX Qty: 9 0RF Dose Instruction: TAKE ONE TABLET BY MOUTH TWICE DAILY NEEDED FOR migraine HEADACHE wait AT least TWO HOURS between doses Rx Instructions: TAKE 1 TABLET PO TWICE DAILY NEEDED FOR migraine HEADACHE wait AT least 2 HOURS between doses, patient must have appointment for refill furosemide 20 mg tablet 20 mg PO DAILY PRN (Reason: edema) Qty: 30 3RF Trelegy Ellipta 100-62.5-25 mcg blister with device 1 inh inhalation Q24H Qty: 60 0RF clopidogrel 75 mg tablet 75 mg PO DAILY@20 Hold Instructions: Doctor's Order pantoprazole [Protonix] 40 mg tablet,delayed release (DR/EC) 40 mg PO BID atenolol 50 mg tablet 50 mg PO DAILY@20 doxycycline hyclate 100 mg capsule 100 mg PO BID 10 Days Qty: 20 0RF prednisone 20 mg tablet 20 mg PO TID Qty: 15 0RF Rx Instructions: 1 p.o. 3 times daily x3 days, 1 p.o. twice daily x2 days, 1 p.o. daily x2 days loratadine 10 mg tablet 10 mg PO DAILY escitalopram oxalate 20 mg tablet 20 mg PO DAILY Discharge Orders: Discharge ED (Routine); Ordered 09/05/24 Ordered By: Harley Barker Referrals: Maria Gomez APN [Primary Care Provider] - 4-7 days Discharge Diet: Advance as tolerated Discharge Activity: Resume usual activity Patient Instructions: COPD (Chronic Obstructive Pulmonary Disease) (ED) Coding Level of Care Code ED Travel Administrator for Judy Mcgrath
[2024-09-05 09:48] LABS: Basophils % 0.1 %; Eosinophils # 0.1 10^3/uL (0.0-0.8); Eosinophils % 0.2 %; Hematocrit 40.5 % (36-47); Lymphocytes % 32.9 %; Mean Corpuscular HGB Conc 31.4 g/dL (30-55); Mean Corpuscular Hemoglobin 27.6 pg (27-33); Mean Platelet Volume 9.2 fL (7.4-10.4); Monocytes # 1.3 10^3/uL (0.2-0.9); Monocytes % 6.1 %; Neutrophils # 12.78 10^3/uL (1.8-7.7); Neutrophils % 60.2 %; Nucleated Red Blood Cells % 0 %; Platelet Count 461 10^3/cmm (157-399); Red Cell Distribution Width 17.9 % (12.1-15.1); White Blood Count 21.26 10^3/uL (3.29-11.43)
[2024-09-05 10:11] LABS: Alanine Aminotransferase 27 U/L (0-33); Albumin Level 3.7 g/dL (3.5-5.2); Alkaline Phosphatase 76 U/L (35-105); Anion Gap 16.1 (5-19); Aspartate Amino Transferase 16 U/L (0-32); Blood Urea Nitrogen 14 mg/dL (8-23); Calcium 8.6 mg/dL (8.5-10.5); Carbon Dioxide 25 mmol/L (22-29); Chloride 105 mmol/L (98-107); Creatinine Clr Calc Pharmacy 47.7849; Globulin 2.6 g/dL (1.3-4.6); Glucose 101 mg/dL (65-115); NT Pro B Type Natriuretic Pept 541 pg/mL (0-125); Osmolality Calculated 297 mOsm/kg (285-295); Potassium 3.1 mmol/L (3.5-5.1); Sodium 143 mmol/L (136-145); Total Bilirubin 0.5 mg/dL (0.15-1.2); Total Protein 6.3 g/dL (6.6-8.7)
[2024-09-05 10:21] LABS: Slide Review Slide Review Perform
[2024-09-05] MEDS: methylPREDNISolone sod succ 125 mg/2 mL INJ IVP (10:27)
[2024-09-05] MEDS: ipratropium-albuterol 3 mL Neb INHALATION (10:44)
--- NOTE | 2024-09-05 10:46 | CT_ITS ---
WS: [id number] CT CHEST ANGIOGRAPHY WITH REFORMATS HISTORY: sob TECHNIQUE: Contiguous axial images are obtained through the chest during arterial injection of intrav enous contrast. Images are reconstructed to evaluate the pulmonary arteries. MIP imaging also reviewe d. All CT scans at [facility] use at least one of these dose optimization techniques: automat ed exposure control; mA and/or kV adjustment per patient size (includes targeted exams where dose is matched to clinical indication); or iterative reconstruction. CONTRAST: Omnipaque 350; 100 mL IV. DLP: 458.08 mGy.cm COMPARISON: 06/26/2024 No central pulmonary embolism. Within the very distal pulmonary artery branches the LEFT lower lobe v ariable filling but no definite pulmonary emboli. Mild atherosclerosis aorta. Normal size heart. No p ericardial or pleural effusion. Pleural parenchymal changes and volume loss in the medial LEFT upper lobe from lung cancer treatment. Similar in appearance to the prior study. No recurrent mass. No mediastinal or hilar adenopathy. Small hiatal hernia. No adrenal mass. No destructive bone lesion. CT/CT angio chest PE protcl [id number] IMPRESSION: 1. No pulmonary embolism. 2. Stable posttreatment changes medial LEFT upper lobe. 3. No adenopathy. 4. No pneumonia.
--- NOTE | 2024-09-05 11:06 | PC.NURSE ---
RENUKA Sheriff have report to this nurse at 1100, pt care taken over by this nurse at this time.
[2024-09-05 11:27] LABS: Covid PCR NEGATIVE (Negative); Influenza A NEGATIVE (Negative); Influenza B NEGATIVE (Negative); Respiratory Syncytial Virus Ce NEGATIVE (Negative)
[2024-09-05] MEDS: iohexol 350 mg/mL 500 mL Btl (per mL) IV (11:34)
== END 2024-09-05 12:23 | disposition home or self-care (01) ==
PROVIDERS: Emergency Provider Emergency Medicine; PCP Nurse Practitioner Family
DX: J44.1 Chronic obstructive pulmonary disease with (acute) exacerbation (principal); Z79.02 Long term (current) use of antithrombotics/antiplatelets; Z11.52 Encounter for screening for COVID-19; Z87.891 Personal history of nicotine dependence; Z85.118 Personal history of other malignant neoplasm of bronchus and lung; E78.5 Hyperlipidemia, unspecified; I10 Essential (primary) hypertension
CPT/HCPCS: 0241U; 71045; 71275; 80053; 83880; 85025; 85378; 93005; 94640; 99285; J2919

== ENCOUNTER 2024-09-18 20:26 | Inpatient (IN) | payer MEDICARE, SELFPAY ==
[2024-09-18] VITALS (7 sets, daily range): BP systolic 153–196; BP diastolic 96–141; PULSE 104–121; RESP 14–29; TEMP 37; O2SAT 91–97; BMI 32.1
--- NOTE | 2024-09-18 20:30 | XRR_ITS ---
PROCEDURE INFORMATION: Exam: XR Chest Exam date and time: 09/18/2024 8:48 PM Age: 74 years old Clinical indication: Shortness of breath TECHNIQUE: Imaging protocol: Radiologic exam of the chest. Views: 1 view. COMPARISON: CT angio chest PE protcl [id number] 09/05/2024 11:31 AM FINDINGS: Tubes, catheters and devices: Right chest wall port with the tip projecting over the superior vena cava. Lungs: Stable left paratracheal parenchymal distortion from prior treatment changes. Pleural spaces: Unremarkable. No pleural effusion. No pneumothorax. Heart/Mediastinum: Unremarkable. No cardiomegaly. Vasculature: Aortic calcifications. Bones/joints: Unremarkable. XR/XR chest 1V portable [id number] IMPRESSION: No acute findings.
--- NOTE | 2024-09-18 20:35 | ECG_ITS ---
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 Measurements Intervals [place] Rate: 102 P: 76 [place]: 158 QRS: 57 QRSD: 73 T: 62 QT: 349 QTc: 457 Interpretive Statements SINUS TACHYCARDIA NONSPECIFIC T-WAVE ABNORMALITY ABNORMAL RHYTHM ECG Compared to ECG 09/05/2024 09:08:25 T-wave abnormality now present Sinus rhythm no longer present Electronically Signed On 09-19-2024 12:11:24 CDT by Suzette Rodriguez M.D. [id number]
[2024-09-18] MEDS: methylPREDNISolone sod succ 125 mg/2 mL INJ IVP (20:43)
[2024-09-18] MEDS: ondansetron 2 mg/ML SDV 2 mL 4 MG IVP (20:45)
[2024-09-18 20:50] LABS: Basophils # 0.1 10^3/uL (0.0-0.1); Basophils % 0.3 %; Eosinophils % 0.1 %; Hematocrit 40.3 % (36-47); Lymphocytes # 3.3 10^3/uL (0.8-4.8); Lymphocytes % 18.1 %; Mean Corpuscular HGB Conc 33.3 g/dL (30-55); Mean Corpuscular Hemoglobin 28.6 pg (27-33); Mean Corpuscular Volume 85.9 fl (85-98); Mean Platelet Volume 9.5 fL (7.4-10.4); Monocytes % 5.4 %; Neutrophils % 75.8 %; Nucleated Red Blood Cells % 0 %; Platelet Count 370 10^3/cmm (157-399); Red Blood Count 4.69 10^6/uL (3.85-5.65); Red Cell Distribution Width 18.5 % (12.1-15.1); White Blood Count 18.19 10^3/uL (3.29-11.43)
[2024-09-18] MEDS: ipratropium-albuterol 3 mL Neb INHALATION (20:56)
[2024-09-18] MEDS: albuterol 2.5 mg/3 mL Neb INHALATION (20:56)
[2024-09-18 21:07] LABS: Troponin(5th) Baseline 16 ng/L (0-10)
[2024-09-18 21:08] LABS: Lactic Sepsis W/Reflex 3.1 mmol/L (0.5-2.2)
[2024-09-18 21:10] LABS: Albumin Level 3.9 g/dL (3.5-5.2); Alkaline Phosphatase 82 U/L (35-105); Blood Urea Nitrogen 15 mg/dL (8-23); Calcium 8.7 mg/dL (8.5-10.5); Carbon Dioxide 24 mmol/L (22-29); Chloride 98 mmol/L (98-107); Creatinine Clr Calc Pharmacy 36.7576; Globulin 2.4 g/dL (1.3-4.6); Glucose 167 mg/dL (65-115); Osmolality Calculated 297 mOsm/kg (285-295); Sodium 141 mmol/L (136-145); Total Bilirubin 0.7 mg/dL (0.15-1.2); Total Protein 6.3 g/dL (6.6-8.7)
[2024-09-18 21:11] LABS: ABG PCO2 27.5 mmHg (35-45); Arterial Blood Gas Hematocrit 41.8 % (37-47); Base Excess ABG 7.6 mmol/L (-2.0-2.0); Blood Gas Allen Test Pos; Blood Gas LPM 3.5 %; Blood Gas Operator Identificat BUSJA; Blood Gas Sample Site Radial, left; Blood Gas Sample Type Arterial; Carboxyhemoglobin 0.9 %THgb (0.4-20.1); HCO3 ABG 28.2 mmol/L (22-26); HGB O2 Sat 97.9 % (95-100); Ionized Calcium Level - ABG 1.1 mmol/L (1.1-1.4); Methemoglobin 1.1 % (0.4-1.5); Oxygen Device NC; Oxygen Saturation ABG > 99.1; Potassium Level - ABG 2.7 mmol/L (3.5-5.0); Total Hemoglobin 13.6 g/dL (12-16)
[2024-09-18 21:13] LABS: ABG PH Result 7.62 (7.35-7.45)
[2024-09-18 21:15] LABS: Blood Gas Drawn By BUSJA
[2024-09-18 21:20] LABS: Alanine Aminotransferase 18 U/L (0-33)
[2024-09-18 21:38] LABS: Anion Gap 22.1 (5-19); Aspartate Amino Transferase 22 U/L (0-32); Potassium 3.1 mmol/L (3.5-5.1)
[2024-09-18 21:54] LABS: Covid PCR NEGATIVE (Negative); Influenza A NEGATIVE (Negative); Influenza B NEGATIVE (Negative); Respiratory Syncytial Virus Ce NEGATIVE (Negative)
--- NOTE | 2024-09-18 22:00 | ED_ITS ---
HPI - SOB/Dyspnea 2 General: Chief Complaint: Shortness of Breath/Dyspnea Stated Complaint: SOB Time Seen by Provider: 09/18/24 20:27 History of Present Illness: HPI Narrative: 74-year-old female with a history of anx iety, COPD, hypertension, hyperlipidemia and non-small cell lung cancer who presents to the emergency room with shortness of breath. Apparently this been going on for over a week now. She is not on oxygen at home. EMS reports she was in the 80s. She is now in the 90s on 4 L nasal cannula. No known chest pain. She has had some cough. She thinks she has had fever. Related Data Home Medications Medication Instructions Recorded Confirmed atenolol 50 mg tablet 50 mg PO DAILY@03/08/21 09/05/24 clopidogrel 75 mg tablet 75 mg PO DAILY@03/08/21 09/05/24 pantoprazole 40 mg tablet,delayed 40 mg PO BID 03/08/21 09/05/24 release (Protonix) escitalopram oxalate 20 mg tablet 20 mg PO DAILY 09/05/24 09/05/24 loratadine 10 mg tablet 10 mg PO DAILY 09/05/24 09/05/24 Previous Rx's Medication Instructions Recorded sumatriptan succinate 100 mg tablet See Rx Instructions .Route 04/10/23 .COMPLEX #9 tabs apixaban 5 mg tablet (Eliquis) 5 mg PO BID #180 tabs 09/11/23 furosemide 20 mg tablet 20 mg PO DAILY PRN edema #30 tabs 06/28/24 fluticasone fur. 100 mcg-umeclid 1 inh inhalation Q24H #60 ea 07/11/24 62.5 mcg-vilant 25 mcg inhalat.powder (Trelegy Ellipta) prednisone 20 mg tablet 20 mg PO TID #15 tabs 08/31/24 prednisone 50 mg tablet 50 mg PO DAILY #5 tabs 09/05/24 Allergies Allergy/AdvReac Type Severity Reaction Status Date / Time No Known Allergies Allergy Verified 06/25/24 13:27 Review of Systems 2 Narrative: Constitutional symptoms: Negative except as documented in HPI. Skin symptoms: Negative except as documented in HPI. Eye symptoms: Negative except as documented in HPI. ENMT symptoms: Negative except as documented in HPI. Respiratory symptoms: Negative except as documented in HPI. Cardiovascular symptoms: Negative except as documented in HPI. Gastrointestinal symptoms: Negative except as documented in HPI. Genitourinary symptoms: Negative except as documented in HPI. Musculoskeletal symptoms: Negative except as documented in HPI. Neurologic symptoms: Negative except as documented in HPI. Psychiatric symptoms: Negative except as documented in HPI. Endocrine symptoms: Negative except as documented in HPI. PFS ED 2 PFSH: Medical History Chronic migraine without aura, intractable, with status migrainosus Non-small cell lung cancer Chronic migraine Lumbar spinal stenosis Degenerative joint disease of spine COPD (chronic obstructive pulmonary disease) Hyperthyroidism Continue on home methimazole Basilar artery aneurysm Dyslipidemia Hypertension Anxiety disorder Insomnia Plantar fasciitis Statin intolerance Gastritis Surgical History History of esophagogastroduodenoscopy (EGD) 2019 -gastritis Status post colonoscopy 2018: Normal repeat in 10 years S/P coil embolization of cerebral aneurysm 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, stent subsequently removed H/O section H/O splenectomy 2007 Family History Mother Diabetes Father Heart disease Grandmother Stroke Other Suicide Denies family history of CAD (coronary artery disease) Clotting disorder Dementia Hyperlipidemia Psychiatric illness Chronic kidney disease (CKD) Anesthesia complication Bleeding disorder Lung disease Cancer Hypertension Social History Smoking and tobacco/nicotine status: never used tobacco/nicotine Quit status (tobacco/nicotine): has quit using Year quit tobacco: 2017 [id number] Second hand smoke exposure: No Alcohol intake: former Substance/Drug Use: current Substance/Drug use frequency: few times a week Lives independently: Yes Household members: spouse Marital status: service: No Current occupational status: retired Pets and animals: Yes Do you think of yourself as: Straight/Heterosexual Current gender identity: Female Physical Exam 2 Narrative: EXAM NARRATIVE: General: Alert, moderate distress. Skin: Warm, dry. Head: Normocephalic, atraumatic. Neck: Supple, trachea midline. Eye: Extraocular movements are intact. Ears, nose, mouth and throat: Oral mucosa moist. Cardiovascular: Regular, tachycardic, Normal peripheral perfusion. Respiratory: coarse, scattered wheeze, moderate increased wob. tachypnea, prolonged expiratory phase. breath sounds are equal, Symmetrical chest wall expansion. Gastrointestinal: Soft, Nontender, Non distended, Normal bowel sounds. Musculoskeletal: Normal ROM, no deformity. Neurological: Alert and oriented to person, place, time, and situation, No focal neurological deficit observed. Psychiatric: Cooperative, appropriate mood & affect. Course 2 Vital Signs: Vital signs: Vital Signs Temperature 98.6 F 09/18/24 20:28 Pulse Rate 118 H 09/18/24 21:31 Respiratory Rate 19 H 09/18/24 21:31 Blood Pressure 153/117 09/18/24 20:34 Pulse Oximetry 96 09/18/24 20:57 Oxygen Delivery Me thod Nasal Cannula 09/18/24 20:57 Oxygen Flow Rate 3.5 09/18/24 20:57 MDM - SOB/Dyspnea Medical Decision Making Differential diagnosis for patient with shortness of breath includes but is not limited to and based on the above HPI, review of systems and physical exam: Pneumonia. Bronchitis. Asthma or COPD with acute exacerbation. Acute coronary syndrome / LA. Pulmonary embolism. Anxiety. Congestive heart failure. Viral infections including influenza and Covid-19. Atrial fibrillation. Anxiety. Pleural effusion. Pneumothorax. Orders placed to evaluate differential diagnosis based on the above differential, HPI and physical exam EKG: Time 2246. Rate 107. Sinus tachycardia, No ST-T changes, no ectopy, normal MI & QRS intervals, This was reviewed and interpreted by myself the ER physician at 2250 Repeat EKG: Time 2034. Rate 102. Sinus tachycardia, No ST-T changes, no ectopy, normal MI & QRS intervals, This was reviewed and interpreted by myself the ER physician at 2040. No significant changes from EKG done previously today in the emergency room. Chest x-ray: No acute process. No infiltrate. No pneumothorax. This was reviewed and interpreted by myself the ER physician. Lab Review: Laboratory results were reviewed and interpreted by myself the emergency room physician. Patient has a leukocytosis and elevated lactate. I reviewed the patient's medical record. Reexamination: Patient still with some wheeze. Still requiring oxygen. Still difficult historian. Consultation: I spoke with Dr. Caldwell who is on-call for the hospitalist service who agrees to admission Assessment and plan: COPD with acute exacerbation Acute hypoxemic respiratory failure Anxiety ?Some concern for sepsis with leukocytosis and elevated lactate with some tachycardia. However blood pressure is elevated. With shortness of fluids I am starting with a single liter of saline and she is receiving doxycycline for probable bronchitis. IV steroids and breathing treatments were given as well. -I discussed the patient with the hospitalist on-call who is admitting the patient. - Discussed findings and plan with patient. Answered any questions. - All laboratory values were reviewed and interpreted personally by myself, the ER physician - All imaging was reviewed and interpreted personally by myself, the ER physician. - Evaluation and treatment of this problem were appropriate in the emergency setting Lab Data 09/18/24 20:35 09/18/24 20:35 Labs/Radiology: Radiology Impressions Chest X-Ray 09/18/24 20:30 IMPRESSION: No acute findings. Laboratory Results WBC 18.19 10^3/uL (3.29-11.43) H 09/18/24 20:35 RBC 4.69 10^6/uL (3.85-5.65) 09/18/24 20:35 Hgb 13.40 g/dL (11.27-16.99) 09/18/24 20:35 Hct 40.3 % (36-47) 09/18/24 20:35 MCV 85.9 fl (85-98) 09/18/24 20:35 MCH 28.6 pg (27-33) 09/18/24 20:35 MCHC 33.3 g/dL (30-55) 09/18/24 20:35 RDW 18.5 % (12.1-15.1) H 09/18/24 20:35 Plt Count 370 10^3/cmm (157-399) 09/18/24 20:35 MPV 9.5 fL (7.4-10.4) 09/18/24 20:35 Neut % (Auto) 75.8 % 09/18/24 20:35 Lymph % (Auto) 18.1 % 09/18/24 20:35 Whitman % (Auto) 5.4 % 09/18/24 20:35 Eos % (Auto) 0.1 % 09/18/24 20:35 Baso % (Auto) 0.3 % 09/18/24 20:35 Neut # (Auto) 13.80 10^3/uL (1.8-7.7) H 09/18/24 20:35 Lymph # (Auto) 3.3 10^3/uL (0.8-4.8) 09/18/24 20:35 Whitman # (Auto) 1.0 10^3/uL (0.2-0.9) H 09/18/24 20:35 Eos # (Auto) 0.0 10^3/uL (0.0-0.8) 09/18/24 20:35 Baso # (Auto) 0.1 10^3/uL (0.0-0.1) 09/18/24 20:35 Nucleated RBC % (auto) 0 % 09/18/24 20:35 Nucleated RBCs # 0.0 /100WBC 09/18/24 20:35 Specimen Type Arterial 09/18/24 21:07 Sample Site Radial, left 09/18/24 21:07 ABG pH 7.62 (7.35-7.45) H* 09/18/24 21:07 ABG pCO2 27.5 mmHg (35-45) L 09/18/24 21:07 ABG pO2 124.0 mmHg (80.0-100.0) H 09/18/24 21:07 ABG HCO3 28.2 mmol/L (22-26) H 09/18/24 21:07 ABG O2 Saturation > 99.1 09/18/24 21:07 ABG Base Excess 7.6 mmol/L (-2.0-2.0) H 09/18/24 21:07 [place] Test Pos 09/18/24 21:07 A-a O2 Gradient 0.0 mmHg (5-10) L 09/18/24 21:07 Hematocrit 41.8 % (37-47) 09/18/24 21:07 Hgb O2 Saturation 97.9 % (95-100) 09/18/24 21:07 Carboxyhemoglobin 0.9 %THgb (0.4-20.1) 09/18/24 21:07 Methemoglobin 1.1 % (0.4-1.5) 09/18/24 21:07 Total Hemoglobin 13.6 g/dL (12-16) 09/18/24 21:07 Sodium 143.0 mmol/L (131-143) 09/18/24 21:07 Potassium 2.7 mmol/L (3.5-5.0) L 09/18/24 21:07 Glucose 162.0 mg/dL (70-115) H 09/18/24 21:07 Ionized Calcium 1.1 mmol/L (1.1-1.4) 09/18/24 21:07 O2 Delivery Device Nc 09/18/24 21:07 O2 Liters/Min 3.5 % 09/18/24 21:07 Specimen Drawn By Amandeep 09/18/24 21:07 [employer] ID [email or web address] 09/18/24 21:07 Sodium 141 mmol/L (136-145) 09/18/24 20:35 Potassium 3.1 mmol/L (3.5-5.1) L 09/18/24 20:35 Chloride 98 mmol/L (98-107) 09/18/24 20:35 Carbon Dioxide 24 mmol/L (22-29) 09/18/24 20:35 Anion Gap 22.1 (5-19) H 09/18/24 20:35 BUN 15 mg/dL (8-23) 09/18/24 20:35 Creatinine 1.3 mg/dL (0.5-0.9) H 09/18/24 20:35 GFR Calculation Not Reportable 09/18/24 20:35 Glucose 167 mg/dL (65-115) H 09/18/24 20:35 Calculated Osmolality 297 mOsm/kg (285-295) H 09/18/24 20:35 Lactic Acid 3.1 mmol/L (0.5-2.2) H 09/18/24 20:35 Calcium 8.7 mg/dL (8.5-10.5) 09/18/24 20:35 Total Bilirubin 0.7 mg/dL (0.15-1.2) 09/18/24 20:35 AST 22 U/L (0-32) 09/18/24 20:35 ALT 18 U/L (0-33) 09/18/24 20:35 Alkaline Phosphatase 82 U/L (35-105) 09/18/24 20:35 Troponin T Baseline 16 ng/L (0-10) H 09/18/24 20:35 Total Protein 6.3 g/dL (6.6-8.7) L 09/18/24 20:35 Albumin 3.9 g/dL (3.5-5.2) 09/18/24 20:35 Globulin 2.4 g/dL (1.3-4.6) 09/18/24 20:35 Coronavirus (PCR) Negative (Negative) 09/18/24 21:00 Influenza A (PCR) Negative (Negative) 09/18/24 21:00 Influenza Type B (PCR) Negative (Negative) 09/18/24 21:00 RSV (PCR) Negative (Negative) 09/18/24 21:00 All radiology interpretation(s) finalized by discharge Discharge Plan Discharge Patient Disposition: Admitted As Inpatient Admit Provider: Ar Grant Clinical Impression: Acute exacerbation of chronic obstructive airways disease, Hypoxemia Condition: Stable Coding Level of Care Code ED Mat Maker for Judy Mcgrath
[2024-09-18 22:31] LABS: Reflex Lactate Order REFLEX LACTIC ORDERD
[2024-09-18] MEDS: doxycycline 100 MG in sodium chloride 0.9% (plus) 100 ML IV (22:38)
[2024-09-18] MEDS: sodium chloride 0.9% 1,000 ML 999 ML IV (22:43)
--- NOTE | 2024-09-18 22:47 | ECG_ITS ---
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 Measurements Intervals [place] Rate: 107 P: 72 MD: 170 QRS: 35 QRSD: 77 T: 52 QT: 301 QTc: 403 Interpretive Statements SINUS TACHYCARDIA NONSPECIFIC T-WAVE ABNORMALITY ABNORMAL RHYTHM ECG Compared to ECG 09/18/2024 20:35:27 No significant changes Electronically Signed On 09-19-2024 12:15:17 CDT by Suzette Rodriguez M.D. [id number]
[2024-09-18 22:56] LABS: NT Pro B Type Natriuretic Pept 1196 pg/mL (0-125)
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
[2024-09-18 23:25] LABS: Troponin 5 2HR 15.13 ng/L (0-10); Troponin 5 2HR Delta -0.87 ABS# (0-10)
[2024-09-18 23:56] LABS: Erythrocyte Sedimentation Rate 92 mm/hr (0-15)
[2024-09-19] VITALS (11 sets, daily range): BP systolic 107–204; BP diastolic 67–110; PULSE 78–118; RESP 16–22; TEMP 36.8–37.3; O2SAT 89–96; BMI 31.4
[2024-09-19] MEDS: cefTRIAXone 1,000 mg SDV 1000 MG IVP (00:03)
[2024-09-19 00:22] LABS: Thyroid Stimulating Hormone 2.13 uIU/mL (0.27-4.20)
[2024-09-19] MEDS: cloNIDine 0.1 mg Tablet PO ×2 (00:25→08:29)
[2024-09-19] MEDS: LORazepam 0.5 mg Tablet PO ×2 (00:27→11:59)
[2024-09-19] MEDS: lactated ringers 1,000 ML 1000 ML IV (00:39)
--- NOTE | 2024-09-19 02:47 | ECG_ITS ---
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 Measurements Intervals [place] Rate: 100 P: 72 [place]: 158 QRS: 59 QRSD: 85 T: 59 QT: 302 QTc: 391 Interpretive Statements SINUS TACHYCARDIA NONSPECIFIC T-WAVE ABNORMALITY ABNORMAL RHYTHM ECG Compared to ECG 09/18/2024 22:47:33 No significant changes Electronically Signed On 09-19-2024 12:15:04 CDT by Suzette Rodriguez M.D. [id number]
[2024-09-19] MEDS: potassium chloride ER 20 mEq Tablet 40 MEQ PO ×2 (02:53→08:29)
[2024-09-19 03:02] LABS: Basophils % 0.1 %; Hematocrit 35.4 % (36-47); Lymphocytes # 1.2 10^3/uL (0.8-4.8); Lymphocytes % 6.9 %; Mean Corpuscular HGB Conc 32.8 g/dL (30-55); Mean Corpuscular Hemoglobin 28.2 pg (27-33); Mean Corpuscular Volume 86.1 fl (85-98); Mean Platelet Volume 9.5 fL (7.4-10.4); Monocytes # 0.3 10^3/uL (0.2-0.9); Monocytes % 1.7 %; Neutrophils # 15.76 10^3/uL (1.8-7.7); Neutrophils % 90.8 %; Nucleated Red Blood Cells % 0 %; Platelet Count 336 10^3/cmm (157-399); Red Blood Count 4.11 10^6/uL (3.85-5.65); Red Cell Distribution Width 18.2 % (12.1-15.1); White Blood Count 17.35 10^3/uL (3.29-11.43)
[2024-09-19 03:20] LABS: Lactate (Lactic Acid level) 1.3 mmol/L (0.5-2.2)
[2024-09-19 03:23] LABS: Anion Gap 15.1 (5-19); Blood Urea Nitrogen 15 mg/dL (8-23); Calcium 8.1 mg/dL (8.5-10.5); Carbon Dioxide 29 mmol/L (22-29); Chloride 100 mmol/L (98-107); Glucose 189 mg/dL (65-115); Osmolality Calculated 298 mOsm/kg (285-295); Potassium 3.1 mmol/L (3.5-5.1); Sodium 141 mmol/L (136-145)
[2024-09-19 03:24] LABS: Magnesium 1.7 mg/dL (1.7-2.3)
[2024-09-19] MEDS: doxycycline 100 mg Tablet PO (08:29)
[2024-09-19] MEDS: loratadine 10 mg Tablet PO (08:29)
[2024-09-19] MEDS: escitalopram 10 mg Tablet 20 MG PO (08:29)
[2024-09-19] MEDS: apixaban 5 mg Tablet PO ×2 (08:30→17:26)
[2024-09-19] MEDS: pantoprazole DR 40 mg Tablet PO ×2 (08:30→17:25)
[2024-09-19] MEDS: ipratropium-albuterol 3 mL Neb INHALATION ×3 (08:58→20:52)
[2024-09-19] MEDS: budesonide 0.5 mg/2 mL Neb INHALATION ×2 (08:58→20:52)
--- NOTE | 2024-09-19 09:03 | CT_ITS ---
WS: [id number] CT CHEST, ABDOMEN AND PELVIS WITHOUT CONTRAST HISTORY: sepsis, sed 92,, history of lung cancer. TECHNIQUE: Contiguous 5 mm axial imaging performed through the chest, abdomen and pelvis without IV c ontrast, oral contrast has not been provided. Coronal and sagittal reformats chest. Coronal and sagit darrian reformats through the abdomen and pelvis. All CT scans at [facility] use at least one of these dose optimization techniques: automated exposure control; mA and/or kV adjustment per patient s ize (includes targeted exams where dose is matched to clinical indication); or iterative reconstructi on. CONTRAST: None DLP: 844.25 mGy.cm COMPARISON: 09/05/2024, 06/26/[address]: Chronic emphysema. Stable posttreatment changes of fibrosis, atelectasis and bronchiectasis in the medial LEFT upper lobe. No recurrent mass or interval change since 09/05/2024. No pulmonary m ass or nodule. Mild atherosclerosis aorta. Normal size pulmonary artery. No adenopathy. Small hiatal hernia. Heart size is normal. Right-sided Port-A-Cath. Abdomen CT: No attenuation changes within the liver. Normal appearance of the gallbladder. Diffuse pa ncreatic atrophy is unchanged. Prior splenectomy. No renal obstruction. Mild atherosclerosis aorta. Stomach is normally distended. N o small bowel obstruction. No colon obstruction or colitis. No ascites or adenopathy. Ventral abdominal wall hernias containing omental fat only. Supraumbilical hernia and LEFT paraumbili tram hernias are reidentified. Normal appendix. Pelvic CT: Well-distended urinary bladder. No free fluid. No adenopathy. Atrophic uterus and ovaries. No soft tissue abnormality. Advanced degenerative changes in the lumbar spine with disc space narrowing and facet arthritis. CT/[place] [id number] IMPRESSION: 1. No pneumonia. 2. Stable posttreatment changes medial LEFT upper lobe consistent with bronchi ectasis, atelectasis and fibrosis. 3. No GI tract obstruction. 4. No pneumonia. 5. No ascites or adenopathy. No colitis. 6. Ventral abdominal wall hernias.
[2024-09-19 09:29] LABS: C Reactive Protein 27.2 mg/L (0.0-4.9)
[2024-09-19 09:30] LABS: Erythrocyte Sedimentation Rate 45 mm/hr (0-15)
[2024-09-19 09:37] LABS: Procalcitonin 0.08 ng/mL (0-0.5)
--- NOTE | 2024-09-19 10:08 | PC.PHAR ---
Patient states she takes care of her own medication , but when asked she isn't sure if she is taking it or the names . Patient also states since she got sick she hasn't taken her medication in the last 4 days or so . I called and verified with the Pharmacies and stated last fill dates . Some are a few days passed refill dates and some haven't had refills requested .
[2024-09-19] MEDS: ondansetron 2 mg/ML SDV 2 mL 4 MG IVP (11:27)
[2024-09-19] MEDS: linezolid premix 600 MG/300 ML PREMIX 300 MG IV (11:27)
[2024-09-19] MEDS: piperacillin-tazobactam 3.375 GM in sodium chloride 0.9% (plus) 50 ML IV ×2 (12:37→21:26)
[2024-09-19] MEDS: metoclopramide 5 mg/mL SDV 2 mL IVP (12:43)
[2024-09-19] MEDS: TRAMadol 50 mg Tablet 25 MG PO ×2 (13:05→17:50)
--- NOTE | 2024-09-19 16:11 | P.PN_ITS ---
Subjective 2 Subjective: Patient was seen this morning, she is alert oriented x 3, following all commands she continues to have episodes of nausea this morning, denies any right upper quadrant pain she tells me that her abdomen hurts all over after her nausea, no diarrhea, does have a chronic cough no fevers, does report fatigue, malaise, I looked at her right sided Port-A-Cath, no overlying signs of skin infection, tenderness, she does report shortness of breath since getting out of the hospital which has persisted, she is currently on 3 L,, she did think that she had a fever at home Vitals/I&O/Wt Last Vital Signs Temp 98.9 F 09/19/24 16:00 Pulse 86 09/19/24 16:00 Resp 16 09/19/24 16:00 BP 107/67 09/19/24 16:00 Pulse Ox 96 09/19/24 16:00 O2 Del Method Nasal Cannula 09/19/24 16:00 O2 Flow Rate 3.5 09/18/24 20:57 09/19/24 09/19/24 09/19/24 06:59 14:59 22:59 Intake Total 2100 / 2100 500 / 500 Balance 2100 / 2100 500 / 500 Weight last 48 hrs Weight 75.835 kg Weight 75.296 kg Weight 77.111 kg Physical Exam 2 Const: COMMON NORMALS: no acute distress and patient oriented x3 Chest: OTHER: Right chest Port-A-Cath site looks clean and dry Resp: COMMON NORMALS: normal respiratory effort, No retractions and No use of accessory muscles AUSCULTATION: wheezes Cardio: COMMON NORMALS: regular rate, regular rhythm, S1 normal heart sound present and S2 normal heart sound present RATE: regular rate RHYTHM: r egular rhythm HEART SOUNDS: S1 normal heart sound present and S2 normal heart sound present GI: COMMON NORMALS: Normal to inspection, nondistended, normoactive bowel sounds present and non-tender Extremity: COMMON NORMALS: no pedal edema Neuro: COMMON NORMALS: patient oriented x3 Psych: COMMON NORMALS: mental status grossly normal Data 09/19/24 02:47 09/19/24 02:47 Micro: Microbiology 09/18/24 23:05 Blood Culture - Preliminary Blood SPECIMEN COLLECTED 09/18/24 22:58 Blood Culture - Preliminary Blood SPECIMEN COLLECTED A&P Assessment and plan (1) Sepsis: (2) Hyperthyroidism: (3) Malignant neoplasm of upper lobe, left bronchus or lung: (4) Acute exacerbation of chronic obstructive airways disease: (5) Paroxysmal atrial fibrillation with RVR: (6) H/O splenectomy: Plan Acute COPD exacerbation -Continue DuoNeb -Continue budesonide -Solu-Medrol 40 mg IV push every 8 hours Sepsis -Sepsis features met given leukocytosis, elevated lactic acid, complaints of fever, ESR 92, CALVIN, elevated CRP -Source unclear -Chest x-ray no focal pneumonia ? Respiratory viral panel negative -No significant transaminitis, alk phos, or bili elevation -Will order CT chest abdomen pelvis -Follow urinalysis, urine culture -Will broaden antibiotic coverage to Zosyn, Zyvox -Follow blood cultures -Right chest port in place, area looks clean and dry, will continue to monitor -ESR is 92, will consider CT of the spine based on clinical progress Recurrent nausea vomiting -Zofran -Promethazine History of splenectomy History of A-fib with RVR Full code Eliquis for DVT prophylaxis Attestations 2 Medical Necessity Statement*: Patient requires hospitalization for acute COPD exacerbation, sepsis, recurrent nausea vomiting Diagnoses Sepsis A41.9 Hyperthyroidism E05.90 Malignant neoplasm of upper lobe, left bronchus or lung C34.12 Acute exacerbation of chronic obstructive airways disease J44.1 Paroxysmal atrial fibrillation with RVR I48.0 H/O splenectomy Z90.81
[2024-09-19 17:20] LABS: Anion Gap 12.6 (5-19); Blood Urea Nitrogen 15 mg/dL (8-23); Calcium 8.5 mg/dL (8.5-10.5); Carbon Dioxide 30 mmol/L (22-29); Chloride 102 mmol/L (98-107); Creatinine Clr Calc Pharmacy 39.4793; Glucose 112 mg/dL (65-115); Lipase 16 U/L (13-60); Osmolality Calculated 294 mOsm/kg (285-295); Potassium 3.6 mmol/L (3.5-5.1); Sodium 141 mmol/L (136-145)
[2024-09-19] MEDS: methylPREDNISolone sod succ 40 mg/mL INJ IVP (17:25)
[2024-09-19] MEDS: sodium chloride 0.9% 500 ML IV (17:52)
[2024-09-19] MEDS: atenolol 50 mg Tablet PO (21:26)
[2024-09-19] MEDS: clopidogrel 75 mg Tablet PO (21:26)
[2024-09-20] VITALS (15 sets, daily range): BP systolic 107–134; BP diastolic 62–78; PULSE 60–80; RESP 14–18; TEMP 36.6–37.1; O2SAT 90–99
[2024-09-20] MEDS: linezolid premix 600 MG/300 ML PREMIX 300 MG IV ×3 (00:15→23:16)
[2024-09-20] MEDS: methylPREDNISolone sod succ 40 mg/mL INJ IVP ×2 (00:15→09:16)
[2024-09-20] MEDS: cetylpyridinium Lozenge 1 EACH MUCOUS MEM (00:16)
[2024-09-20 05:21] LABS: Basophils % 0.1 %; Hematocrit 33.8 % (36-47); Lymphocytes # 1.2 10^3/uL (0.8-4.8); Lymphocytes % 6.5 %; Mean Corpuscular HGB Conc 31.4 g/dL (30-55); Mean Corpuscular Volume 89.2 fl (85-98); Mean Platelet Volume 9.2 fL (7.4-10.4); Monocytes # 0.5 10^3/uL (0.2-0.9); Monocytes % 2.6 %; Neutrophils # 16.69 10^3/uL (1.8-7.7); Neutrophils % 90.1 %; Nucleated Red Blood Cells % 0 %; Platelet Count 305 10^3/cmm (157-399); Red Blood Count 3.79 10^6/uL (3.85-5.65); Red Cell Distribution Width 18.7 % (12.1-15.1); White Blood Count 18.53 10^3/uL (3.29-11.43)
[2024-09-20] MEDS: piperacillin-tazobactam 3.375 GM in sodium chloride 0.9% (plus) 50 ML IV ×3 (05:25→20:06)
[2024-09-20 05:41] LABS: Anion Gap 11.4 (5-19); Blood Urea Nitrogen 15 mg/dL (8-23); Calcium 8.1 mg/dL (8.5-10.5); Carbon Dioxide 30 mmol/L (22-29); Chloride 104 mmol/L (98-107); Creatinine Clr Calc Pharmacy 43.6063; Glucose 146 mg/dL (65-115); Osmolality Calculated 295 mOsm/kg (285-295); Potassium 4.4 mmol/L (3.5-5.1); Sodium 141 mmol/L (136-145)
[2024-09-20 05:46] LABS: C Reactive Protein 12.1 mg/L (0.0-4.9)
[2024-09-20 05:53] LABS: Procalcitonin 0.06 ng/mL (0-0.5)
[2024-09-20] MEDS: budesonide 0.5 mg/2 mL Neb INHALATION ×2 (07:41→19:39)
[2024-09-20] MEDS: ipratropium-albuterol 3 mL Neb INHALATION ×4 (07:41→19:39)
[2024-09-20] MEDS: loratadine 10 mg Tablet PO (09:17)
[2024-09-20] MEDS: escitalopram 10 mg Tablet 20 MG PO (09:17)
[2024-09-20] MEDS: pantoprazole DR 40 mg Tablet PO ×2 (09:17→17:46)
[2024-09-20] MEDS: apixaban 5 mg Tablet PO ×2 (09:17→17:46)
--- NOTE | 2024-09-20 09:39 | CT_ITS ---
WS: [id number] CT HEAD NONCONTRAST HISTORY: ams TECHNIQUE: Contiguous axial imaging performed through the brain. Bone and soft tissue windows. Sagitt al and coronal reformats reviewed. All CT scans at [facility] use at least one of these dose optimization techniques: automated exposure control; mA and/or kV adjustment per patient size (includ es targeted exams where dose is matched to clinical indication); or iterative reconstruction. DLP: 2148.09 mGy.cm COMPARISON: 12/25/2022 No acute intracranial hemorrhage, midline shift or mass effect. Large prior LEFT parietal and superior temporal lobe infarct. Extensive low-attenuation within the wh ite matter surrounding the ventricles. Prior lacunar infarcts in the basal ganglia. Remote ischemic c hanges along the RIGHT external capsule. Progression of small vessel disease and small lacunar infarc ts since 02/08/2023. Ventricles: Mild ex vacuo dilatation occipital horn of the LEFT lateral ventricle. No inferior displacement of the cerebellar tonsils. Paranasal sinuses: As visualized are clear. Mastoid air cells: Well pneumatized. Calvarium and scalp: Skull is intact with no soft tissue edema or swelling. Significant beam hardening artifact from prior aneurysm coil at the basilar tip. CT/CT head wo con* [id number] IMPRESSION: 1. No acute intracranial hemorrhage or edema. 2. Progression of small vessel ischemic disease and lacunar infarcts since 01/19. 3. Remote LEFT parietal and temporal lobe infarct. 4. No sinus disease.
--- NOTE | 2024-09-20 09:39 | CT_ITS ---
WS: [id number] CT CERVICAL SPINE HISTORY: sepsis, elevated sed, TECHNIQUE: Contiguous 2.0 mm axial imaging performed through the entire cervical spine. Sagittal and coronal reformats also performed. All CT scans at [facility] use at least one of these dose o ptimization techniques: automated exposure control; mA and/or kV adjustment per patient size (include s targeted exams where dose is matched to clinical indication); or iterative reconstruction. DLP: 2148.09 mGy.cm COMPARISON: None available. Straightening of the normal cervical lordosis. C3 anterolisthesis by 2.7 cm. Disc spaces are mildly n arrowed and desiccated. No destructive bone lesions. No paravertebral soft tissue inflammation. No ma ss effect upon the cord or thecal sac. Mild to moderate bilateral foraminal stenosis from C3-4 throug h C6-7. No high-grade central or foraminal stenosis. No osseous bone destruction. Imaging at the lung apices demonstrates advanced emphysema. Chronic atelectasis and posttreatment erasto nges medial LEFT upper lobe. CT/CT cervical spin wo con* [id number] IMPRESSION: 1. No bone destruction. No paravertebral inflammatory changes. 2. Multilevel mild to moderate foraminal stenosis from C3-4 through C6-7.
--- NOTE | 2024-09-20 09:54 | ECG_ITS ---
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 Measurements Intervals Ellis Rate: 70 P: 53 NM: 161 QRS: 24 QRSD: 92 T: 38 QT: 412 QTc: 447 Interpretive Statements SINUS RHYTHM Compared to ECG 09/19/2024 02:47:41 Sinus tachycardia no longer present T-wave abnormality no longer present Electronically Signed On 09-20-2024 12:18:51 CDT by Suzette Rodriguez M.D. [id number]
--- NOTE | 2024-09-20 11:22 | PC.SOCIAL ---
IMM Updated Updated pt on IMM. No questions voiced. Provided pt a copy. Initialed, dated, & timed a copy & placed in chart.
--- NOTE | 2024-09-20 13:10 | PC.CHAP ---
Pastoral Care Encounter/Spiritual Assessment Type of Contact [] Declined sr. merchandise planner visit [] Patient/Family/Request visit [] Outpatient visit [] Follow-up visit [] Physician referral [] Code/Alert [x] Routine visit [] Staff referral [] Actively dying [] Patient sleeping [] Family support [] [] Out of room [] Palliative care [] [] Receiving care in room [] Pre-surgical visit [] Trauma [] Long length of stay [] ICU visit [] Other: Relational/Emotional Strength [x] Patient feels connected with others/family/visitors/staff [] Distress [] Loneliness/isolation [] Abandonment Spirituality of Patient [x Person of Jina [x] Attends Episcopal of their Jina [x] Believes in Prayer [x] Reads Bible or Adventist materials [] There are Spiritual issues to be addressed Credit Underwriter Interventions [x] Prayer [x] Active listening [x] Non-anxious presence [] Spiritual/emotional support [] Crisis/trauma care [] Spiritual counseling [] Bereavement support [] Provided bereavement packet [] Provided Bible/devotional materials [] Provided toy/stuffed animal, coloring book to patient or family member [] Provided Communion [] Anointing/[place] [] Salvation [] Completed spiritual assessment [] Other: Impact on Illness or Injury [] Angry [] Fearful [] Anxious [] Often cries [] Exhaustion [] Unable to work [] Unable to attend hinduism [] Unable to walk/stand [] Unable to read [] Unable to drive [] Unable to eat/drink [] Unable to sleep [] Unable to be with family [] Patient intubated [] Other: Summary Time spent with patient 20min
--- NOTE | 2024-09-20 14:32 | P.PN_ITS ---
Subjective 2 Subjective: Patient was seen this morning, she does report a sore throat, no fevers, chills, no nausea, vomiting she does report neck pain, she did have a complaint of a headache yesterday some degree of a headache this morning Vitals/I&O/Wt Last Vital Signs Temp 98.2 F 09/20/24 11:42 Pulse 73 09/20/24 12:52 Resp 15 09/20/24 12:52 BP 123/78 09/20/24 11:42 Pulse Ox 97 09/20/24 12:52 O2 Del Method Nasal Cannula 09/20/24 12:52 O2 Flow Rate 3 09/20/24 12:52 09/19/24 09/20/24 09/20/24 22:59 06:59 14:59 Intake Total 550 / 1050 350 / 1400 520 / 520 Balance 550 / 1050 350 / 1400 520 / 520 Weight last 48 hrs Weight 77.678 kg Weight 75.835 kg Weight 75.296 kg Weight 77.111 kg Physical Exam 2 Const: COMMON NORMALS: no acute distress and patient oriented x3 Neck/C-Spine: COMMON NORMALS: no JVD Resp: COMMON NORMALS: normal respiratory effort, No retractions, No use of accessory muscles and clear to auscultation bilaterally AUSCULTATION: clear to auscultation bilaterally Cardio: COMMON NORMALS: no JVD, regular rate, regular rhythm, S1 normal heart sound present and S2 normal heart sound present RATE: regular rate RHYTHM: regular rhythm HEART SOUNDS: S1 normal heart sound present and S2 normal heart sound present GI: COMMON NORMALS: Normal to inspection, nondistended, normoactive bowel sounds present and non-tender Extremity: COMMON NORMALS: no pedal edema Neuro: COMMON NORMALS: patient oriented x3 Psych: COMMON NORMALS: mental status grossly normal Data 09/20/24 05:10 09/20/24 05:10 Micro: Microbiology 09/18/24 23:05 Blood Culture - Preliminary Blood NEGATIVE TO DATE 09/18/24 22:58 Blood Culture - Preliminary Blood NEGATIVE TO DATE A&P Assessment and plan (1) Sepsis: (2) Hyperthyroidism: (3) Malignant neoplasm of upper lobe, left bronchus or lung: (4) Acute exacerbation of chronic obstructive airways disease: (5) Paroxysmal atrial fibrillation with RVR: (6) H/O splenectomy: Plan Acute COPD exacerbation -Continue DuoNeb -Continue budesonide -Escalate to prednisone 40 mg daily Sepsis -Sepsis features met given leukocytosis, elevated lactic acid, complaints of fever, ESR 92, CALVIN, elevated CRP -Source unclear -Chest x-ray no focal pneumonia ? Respiratory viral panel negative -No significant transaminitis, alk phos, or bili elevation -Will order CT chest abdomen pelvis no acute source of infection -Follow urinalysis, urine culture -Will broaden antibiotic coverage to Zosyn, Zyvox -Follow blood cultures, no acute growth -Right chest port in place, area looks clean and dry, will continue to monitor -ESR is 92, pelvis to evaluate thoracic and lumbar spine, CT neck Recurrent nausea vomiting -Zofran -Promethazine History of splenectomy History of A-fib with RVR Full code Eliquis for DVT prophylaxis Attestations 2 Medical Necessity Statement*: Patient requires hospitalization for COPD, sepsis Diagnoses Sepsis A41.9 Hyperthyroidism E05.90 Malignant neoplasm of upper lobe, left bronchus or lung C34.12 Acute exacerbation of chronic obstructive airways disease J44.1 Paroxysmal atrial fibrillation with RVR I48.0 H/O splenectomy Z90.81
[2024-09-20 17:56] LABS: Bilirubin Urine Negative (Negative); Blood Urine Negative (Negative); Glucose Urine UA Negative (Normal); Ketones Urine Negative (Negative); Leukocyte Esterase Urine Negative (Negative); Nitrate Urine Negative (Negative); Protein Urine Trace (Negative); Specific Gravity, Urine 1.029 (1.005-1.030); Urine Appearance Clear (CLEAR); Urine Color Yellow (Yellow)
[2024-09-20 18:01] LABS: Add Urine Microscopic? YES; Bacteria Urine None Seen /hpf; Hyaline Casts Urine 0.81 /lpf; RBC Urine 0-2 /hpf (0-2); WBC Urine 0-5 /hpf (0-5)
[2024-09-20] MEDS: atenolol 50 mg Tablet PO (20:06)
[2024-09-20] MEDS: clopidogrel 75 mg Tablet PO (20:06)
[2024-09-21] VITALS (11 sets, daily range): BP systolic 127–165; BP diastolic 76–96; PULSE 59–77; RESP 15–20; TEMP 36.4–36.9; O2SAT 92–98; BMI 32.7
[2024-09-21] MEDS: piperacillin-tazobactam 3.375 GM in sodium chloride 0.9% (plus) 50 ML IV ×3 (04:42→20:15)
[2024-09-21 04:50] LABS: Basophils % 0.2 %; Eosinophils # 0.1 10^3/uL (0.0-0.8); Eosinophils % 0.3 %; Hematocrit 33.7 % (36-47); Lymphocytes # 2.2 10^3/uL (0.8-4.8); Lymphocytes % 13.6 %; Mean Corpuscular HGB Conc 30.9 g/dL (30-55); Mean Corpuscular Volume 90.6 fl (85-98); Mean Platelet Volume 9.2 fL (7.4-10.4); Monocytes # 0.7 10^3/uL (0.2-0.9); Monocytes % 4.4 %; Neutrophils # 13.26 10^3/uL (1.8-7.7); Nucleated Red Blood Cells % 0 %; Platelet Count 286 10^3/cmm (157-399); Red Blood Count 3.72 10^6/uL (3.85-5.65); Red Cell Distribution Width 18.6 % (12.1-15.1); White Blood Count 16.37 10^3/uL (3.29-11.43)
[2024-09-21] MEDS: acetaminophen 325 mg Tablet 650 MG PO (04:50)
[2024-09-21 05:29] LABS: Anion Gap 12.7 (5-19); Blood Urea Nitrogen 16 mg/dL (8-23); C Reactive Protein 6.6 mg/L (0.0-4.9); Calcium 7.9 mg/dL (8.5-10.5); Carbon Dioxide 28 mmol/L (22-29); Chloride 103 mmol/L (98-107); Creatinine Clr Calc Pharmacy 47.9669; Glucose 105 mg/dL (65-115); Osmolality Calculated 292 mOsm/kg (285-295); Potassium 3.7 mmol/L (3.5-5.1); Sodium 140 mmol/L (136-145)
[2024-09-21 05:56] LABS: Procalcitonin 0.05 ng/mL (0-0.5)
[2024-09-21] MEDS: predniSONE 20 mg Tablet 40 MG PO (08:56)
[2024-09-21] MEDS: escitalopram 10 mg Tablet 20 MG PO (08:56)
[2024-09-21] MEDS: apixaban 5 mg Tablet PO ×2 (08:57→17:46)
[2024-09-21] MEDS: loratadine 10 mg Tablet PO (08:57)
[2024-09-21] MEDS: pantoprazole DR 40 mg Tablet PO ×2 (08:57→17:46)
[2024-09-21] MEDS: budesonide 0.5 mg/2 mL Neb INHALATION ×2 (09:04→20:07)
[2024-09-21] MEDS: ipratropium-albuterol 3 mL Neb INHALATION ×3 (09:04→20:07)
[2024-09-21] MEDS: linezolid premix 600 MG/300 ML PREMIX 300 MG IV ×2 (12:13→22:33)
--- NOTE | 2024-09-21 14:19 | P.PN_ITS ---
Subjective 2 Subjective: Patient was seen this morning, denies any fevers, no chills, no cough does report wheezing, no other acute events overnight Vitals/I&O/Wt Last Vital Signs Temp 97.5 F L 09/21/24 12:00 Pulse 75 09/21/24 12:41 Resp 18 09/21/24 12:41 BP 165/83 09/21/24 12:00 Pulse Ox 93 09/21/24 12:41 O2 Del Method Nasal Cannula 09/21/24 12:41 O2 Flow Rate 2 09/21/24 12:41 09/20/24 09/21/24 09/21/24 22:59 06:59 14:59 Intake Total 340 / 860 400 / 1260 1070 / 1070 Output Total 500 / 500 400 / 900 Balance -160 / 360 0 / 360 1070 / 1070 Weight last 48 hrs Weight 78.585 kg Weight 77.678 kg Physical Exam 2 Const: COMMON NORMALS: no acute distress and patient oriented x3 Resp: COMMON NORMALS: normal respiratory effort, No retractions and No use of accessory muscles AUSCULTATION: crackles and wheezes Cardio: COMMON NORMALS: regular rate, regular rhythm, S1 normal heart sound present and S2 normal heart sound present RATE: regular rate RHYTHM: r egular rhythm HEART SOUNDS: S1 normal heart sound present and S2 normal heart sound present GI: COMMON NORMALS: Normal to inspection, nondistended, normoactive bowel sounds present and non-tender Extremity: COMMON NORMALS: no pedal edema Neuro: COMMON NORMALS: patient oriented x3 Psych: COMMON NORMALS: mental status grossly normal Data 09/21/24 04:35 09/21/24 04:35 A&P Assessment and plan (1) Sepsis: (2) Hyperthyroidism: (3) Malignant neoplasm of upper lobe, left bronchus or lung: (4) Acute exacerbation of chronic obstructive airways disease: (5) Paroxysmal atrial fibrillation with RVR: (6) H/O splenectomy: Plan Acute COPD exacerbation -Continue DuoNeb -Continue budesonide -dEscalate to prednisone 40 mg daily Sepsis -Sepsis features met given leukocytosis, elevated lactic acid, complaints of fever, ESR 92, CALVIN, elevated CRP -Source unclear -Chest x-ray no focal pneumonia ? Respiratory viral panel negative -No significant transaminitis, alk phos, or bili elevation -Will order CT chest abdomen pelvis no acute source of infection -Follow urinalysis UA within normal limits -Will broaden antibiotic coverage to Zosyn, Zyvox -Follow blood cultures, no acute growth -Right chest port in place, area looks clean and dry, will continue to monitor -ESR is 92, pelvis to evaluate thoracic and lumbar spine, CT neck no acute findings Recurrent nausea vomiting -Zofran -Promethazine History of splenectomy History of A-fib with RVR Full code Eliquis for DVT prophylaxis Attestations 2 Medical Necessity Statement*: For requires hospitalization for COPD, sepsis, persistent leukocytosis of unclear etiology Diagnoses Sepsis A41.9 Hyperthyroidism E05.90 Malignant neoplasm of upper lobe, left bronchus or lung C34.12 Acute exacerbation of chronic obstructive airways disease J44.1 Paroxysmal atrial fibrillation with RVR I48.0 H/O splenectomy Z90.81
[2024-09-21] MEDS: TRAMadol 50 mg Tablet PO ×2 (16:45→22:33)
[2024-09-21] MEDS: guaiFENesin 600 mg Tablet PO (16:45)
[2024-09-21] MEDS: atenolol 50 mg Tablet PO (20:05)
[2024-09-21] MEDS: clopidogrel 75 mg Tablet PO (20:05)
[2024-09-22] VITALS (11 sets, daily range): BP systolic 148–165; BP diastolic 52–91; PULSE 56–72; RESP 15–18; TEMP 36.4–36.8; O2SAT 90–97
[2024-09-22 03:29] LABS: Basophils % 0.1 %; Eosinophils % 0.1 %; Hematocrit 34.3 % (36-47); Lymphocytes # 2.1 10^3/uL (0.8-4.8); Lymphocytes % 16.4 %; Mean Corpuscular HGB Conc 32.1 g/dL (30-55); Mean Corpuscular Volume 90.5 fl (85-98); Mean Platelet Volume 9.1 fL (7.4-10.4); Monocytes # 0.6 10^3/uL (0.2-0.9); Monocytes % 4.6 %; Neutrophils # 10.13 10^3/uL (1.8-7.7); Neutrophils % 78.3 %; Nucleated Red Blood Cells % 0 %; Platelet Count 304 10^3/cmm (157-399); Red Blood Count 3.79 10^6/uL (3.85-5.65); Red Cell Distribution Width 18.6 % (12.1-15.1); White Blood Count 12.93 10^3/uL (3.29-11.43)
[2024-09-22 03:54] LABS: Alanine Aminotransferase 20 U/L (0-33); Alkaline Phosphatase 54 U/L (35-105); Anion Gap 12.1 (5-19); Aspartate Amino Transferase 12 U/L (0-32); Blood Urea Nitrogen 17 mg/dL (8-23); Calcium 7.9 mg/dL (8.5-10.5); Carbon Dioxide 29 mmol/L (22-29); Chloride 103 mmol/L (98-107); Creatinine Clr Calc Pharmacy 53.6202; Globulin 1.2 g/dL (1.3-4.6); Glucose 120 mg/dL (65-115); Osmolality Calculated 293 mOsm/kg (285-295); Potassium 4.1 mmol/L (3.5-5.1); Sodium 140 mmol/L (136-145); Total Bilirubin 0.2 mg/dL (0.15-1.2); Total Protein 4.2 g/dL (6.6-8.7)
[2024-09-22] MEDS: guaiFENesin 600 mg Tablet PO ×2 (04:18→17:26)
[2024-09-22] MEDS: piperacillin-tazobactam 3.375 GM in sodium chloride 0.9% (plus) 50 ML IV ×3 (04:19→20:49)
[2024-09-22 04:46] LABS: Procalcitonin 0.05 ng/mL (0-0.5)
[2024-09-22] MEDS: ipratropium-albuterol 3 mL Neb INHALATION ×4 (07:39→20:56)
[2024-09-22] MEDS: budesonide 0.5 mg/2 mL Neb INHALATION ×2 (07:39→20:57)
[2024-09-22] MEDS: loratadine 10 mg Tablet PO (09:14)
[2024-09-22] MEDS: predniSONE 20 mg Tablet 40 MG PO (09:15)
[2024-09-22] MEDS: pantoprazole DR 40 mg Tablet PO ×2 (09:15→17:26)
[2024-09-22] MEDS: escitalopram 10 mg Tablet 20 MG PO (09:15)
[2024-09-22] MEDS: apixaban 5 mg Tablet PO ×2 (09:15→17:26)
[2024-09-22] MEDS: linezolid premix 600 MG/300 ML PREMIX 300 MG IV ×2 (11:56→23:13)
[2024-09-22] MEDS: TRAMadol 50 mg Tablet PO ×2 (15:29→20:48)
--- NOTE | 2024-09-22 15:36 | P.PN_ITS ---
Subjective 2 Subjective: Patient was seen this morning, her breathing has improved she does have a productive cough, discussed collecting a sample, we will follow her blood cultures today drawn from the port, echocardiogram also ordered today to evaluate her heart valves so far her blood cultures look within normal limits, Vitals/I&O/Wt Last Vital Signs Temp 97.8 F 09/22/24 12:00 Pulse 62 09/22/24 12:00 Resp 16 09/22/24 12:00 BP 153/83 09/22/24 12:00 Pulse Ox 92 09/22/24 12:00 O2 Del Method Nasal Cannula 09/22/24 12:00 O2 Flow Rate 2 09/22/24 12:00 09/22/24 09/22/24 09/22/24 06:59 14:59 22:59 Intake Total 890 / 890 Balance 890 / 890 Weight last 48 hrs Weight 78.585 kg Physical Exam 2 Const: COMMON NORMALS: no acute distress and patient oriented x3 Resp: COMMON NORMALS: normal respiratory effort, No retractions, No use of accessory muscles and clear to auscultation bilaterally AUSCULTATION: clear to auscultation bilaterally Cardio: COMMON NORMALS: regular rate, regular rhythm, S1 normal heart sound present and S2 normal heart sound present RATE: regular rate RHYTHM: r egular rhythm HEART SOUNDS: S1 normal heart sound present and S2 normal heart sound present GI: COMMON NORMALS: Normal to inspection, nondistended, normoactive bowel sounds present and non-tender Extremity: COMMON NORMALS: no pedal edema Neuro: COMMON NORMALS: patient oriented x3 Psych: COMMON NORMALS: mental status grossly normal Data 09/22/24 03:17 09/22/24 03:17 Micro: Microbiology 09/19/24 17:15 Urine Culture - Final Urine,Clean Catch 09/22/24 09:14 Blood Culture - Preliminary Blood SPECIMEN COLLECTED 09/22/24 09:13 Blood Culture - Preliminary Blood SPECIMEN COLLECTED A&P Assessment and plan (1) Sepsis: (2) Hyperthyroidism: (3) Malignant neoplasm of upper lobe, left bronchus or lung: (4) Acute exacerbation of chronic obstructive airways disease: (5) Paroxysmal atrial fibrillation with RVR: (6) H/O splenectomy: Plan Acute COPD exacerbation -Continue DuoNeb -Continue budesonide -dEscalate to prednisone 40 mg daily Sepsis -Sepsis features met given leukocytosis, elevated lactic acid, complaints of fever, ESR 92, CALVIN, elevated CRP -Source unclear -Chest x-ray no focal pneumonia ? Respiratory viral panel negative -No significant transaminitis, alk phos, or bili elevation -Will order CT chest abdomen pelvis no acute source of infection -Follow urinalysis UA within normal limits -Will broaden antibiotic coverage to Zosyn, Zyvox -Follow blood cultures, no acute growth -Right chest port in place, area looks clean and dry, will continue to monitor -ESR is 92, pelvis to evaluate thoracic and lumbar spine, CT neck no acute findings Recurrent nausea vomiting -Zofran -Promethazine History of splenectomy History of A-fib with RVR Full code Eliquis for DVT prophylaxis Plan for today draw blood cultures from her port, cardiac echocardiogram to evaluate cardiac valves, obtain sputum cultures, possible discharge in the next 24 hours Attestations 2 Medical Necessity Statement*: Patient requires hospitalization for COPD, sepsis, leukocytosis of unclear source Diagnoses Sepsis A41.9 Hyperthyroidism E05.90 Malignant neoplasm of upper lobe, left bronchus or lung C34.12 Acute exacerbation of chronic obstructive airways disease J44.1 Paroxysmal atrial fibrillation with RVR I48.0 H/O splenectomy Z90.81
[2024-09-22] MEDS: atenolol 50 mg Tablet PO (20:48)
[2024-09-22] MEDS: clopidogrel 75 mg Tablet PO (20:49)
[2024-09-23] VITALS (11 sets, daily range): BP systolic 135–173; BP diastolic 58–89; PULSE 53–81; RESP 14–18; TEMP 36.5–37; O2SAT 94–98
[2024-09-23] MEDS: guaiFENesin 600 mg Tablet PO ×2 (04:09→14:46)
[2024-09-23] MEDS: piperacillin-tazobactam 3.375 GM in sodium chloride 0.9% (plus) 50 ML IV ×3 (04:09→20:16)
[2024-09-23] MEDS: TRAMadol 50 mg Tablet PO ×2 (04:16→20:12)
[2024-09-23 05:52] LABS: Basophils % 0.1 %; Hematocrit 35.5 % (36-47); Lymphocytes # 2.1 10^3/uL (0.8-4.8); Lymphocytes % 16.8 %; Mean Corpuscular HGB Conc 32.1 g/dL (30-55); Mean Corpuscular Hemoglobin 28.9 pg (27-33); Mean Corpuscular Volume 90.1 fl (85-98); Mean Platelet Volume 9.3 fL (7.4-10.4); Monocytes # 0.5 10^3/uL (0.2-0.9); Monocytes % 4.1 %; Neutrophils # 9.66 10^3/uL (1.8-7.7); Neutrophils % 78.4 %; Nucleated Red Blood Cells % 0 %; Platelet Count 325 10^3/cmm (157-399); Red Blood Count 3.94 10^6/uL (3.85-5.65); Red Cell Distribution Width 18.5 % (12.1-15.1); White Blood Count 12.31 10^3/uL (3.29-11.43)
[2024-09-23 06:26] LABS: Alanine Aminotransferase 19 U/L (0-33); Albumin Level 3.1 g/dL (3.5-5.2); Alkaline Phosphatase 55 U/L (35-105); Anion Gap 12.3 (5-19); Aspartate Amino Transferase 13 U/L (0-32); Blood Urea Nitrogen 19 mg/dL (8-23); Calcium 8.2 mg/dL (8.5-10.5); Carbon Dioxide 30 mmol/L (22-29); Chloride 101 mmol/L (98-107); Globulin 2.2 g/dL (1.3-4.6); Glucose 103 mg/dL (65-115); Osmolality Calculated 291 mOsm/kg (285-295); Potassium 4.3 mmol/L (3.5-5.1); Sodium 139 mmol/L (136-145); Total Bilirubin 0.2 mg/dL (0.15-1.2); Total Protein 5.3 g/dL (6.6-8.7)
[2024-09-23] MEDS: budesonide 0.5 mg/2 mL Neb INHALATION ×2 (08:36→20:11)
[2024-09-23] MEDS: ipratropium-albuterol 3 mL Neb INHALATION ×4 (08:36→20:11)
[2024-09-23] MEDS: escitalopram 10 mg Tablet 20 MG PO (09:01)
[2024-09-23] MEDS: apixaban 5 mg Tablet PO ×2 (09:01→17:43)
[2024-09-23] MEDS: predniSONE 20 mg Tablet 40 MG PO (09:02)
[2024-09-23] MEDS: pantoprazole DR 40 mg Tablet PO ×2 (09:02→17:43)
[2024-09-23] MEDS: loratadine 10 mg Tablet PO (09:02)
--- NOTE | 2024-09-23 10:03 | PC.SOCIAL ---
IMM Update Pg. 2 of IMM updated and copy provided at bedside.
[2024-09-23] MEDS: linezolid premix 600 MG/300 ML PREMIX 300 MG IV ×2 (11:56→23:55)
--- NOTE | 2024-09-23 12:44 | P.PN_ITS ---
Subjective 2 Subjective: Patient was seen this morning, she denies any fevers, chills, does have a cough, she can provide a sputum sample which we have collected, Vitals/I&O/Wt Last Vital Signs Temp 97.9 F 09/23/24 10:00 Pulse 64 09/23/24 11:47 Resp 18 09/23/24 11:47 BP 142/58 09/23/24 10:00 Pulse Ox 98 09/23/24 11:47 O2 Del Method Nasal Cannula 09/23/24 11:47 O2 Flow Rate 2 09/23/24 11:47 09/22/24 09/23/24 09/23/24 22:59 06:59 14:59 Intake Total 300 / 1190 350 / 1540 240 / 240 Output Total 200 / 200 Balance 100 / 990 350 / 1340 240 / 240 Weight last 48 hrs Weight 77.836 kg Physical Exam 2 Const: COMMON NORMALS: no acute distress and patient oriented x3 Resp: COMMON NORMALS: normal respiratory effort, No retractions, No use of accessory muscles and clear to auscultation bilaterally AUSCULTATION: clear to auscultation bilaterally Cardio: COMMON NORMALS: regular rate, regular rhythm, S1 normal heart sound present and S2 normal heart sound present RATE: regular rate RHYTHM: r egular rhythm HEART SOUNDS: S1 normal heart sound present and S2 normal heart sound present GI: COMMON NORMALS: Normal to inspection, nondistended, normoactive bowel sounds present and non-tender Extremity: COMMON NORMALS: no pedal edema Neuro: COMMON NORMALS: patient oriented x3 Psych: COMMON NORMALS: mental status grossly normal Data 09/23/24 05:31 09/23/24 05:31 Micro: Microbiology 09/22/24 09:14 Blood Culture - Preliminary Blood NEGATIVE TO DATE 09/22/24 09:13 Blood Culture - Preliminary Blood NEGATIVE TO DATE 09/19/24 17:15 Urine Culture - Final Urine,Clean Catch A&P Assessment and plan (1) Sepsis: (2) Hyperthyroidism: (3) Malignant neoplasm of upper lobe, left bronchus or lung: (4) Acute exacerbation of chronic obstructive airways disease: (5) Paroxysmal atrial fibrillation with RVR: (6) H/O splenectomy: Plan Acute COPD exacerbation -Continue DuoNeb -Continue budesonide -dEscalate to prednisone 40 mg daily Sepsis -Sepsis features met given leukocytosis, elevated lactic acid, complaints of fever, ESR 92, CALVIN, elevated CRP -Source unclear -Chest x-ray no focal pneumonia ? Respiratory viral panel negative -No significant transaminitis, alk phos, or bili elevation -Will order CT chest abdomen pelvis no acute source of infection -Follow urinalysis UA within normal limits -Will broaden antibiotic coverage to Zosyn, Zyvox -Follow blood cultures, no acute growth -Right chest port in place, area looks clean and dry, will continue to monitor -ESR is 92, pelvis to evaluate thoracic and lumbar spine, CT neck no acute findings Recurrent nausea vomiting -Zofran -Promethazine History of splenectomy History of A-fib with RVR Full code Eliquis for DVT prophylaxis Plan for today follow cultures from the port, cardiac echocardiogram, sputum cultures, if cultures are negative by tomorrow she can discharge home, continue IV antibiotics, monitor cultures, Attestations 2 Medical Necessity Statement*: Patient requires hospitalization for COPD, sepsis Diagnoses Sepsis A41.9 Hyperthyroidism E05.90 Malignant neoplasm of upper lobe, left bronchus or lung C34.12 Acute exacerbation of chronic obstructive airways disease J44.1 Paroxysmal atrial fibrillation with RVR I48.0 H/O splenectomy Z90.81
[2024-09-23] MEDS: atenolol 50 mg Tablet PO (20:12)
[2024-09-23] MEDS: clopidogrel 75 mg Tablet PO (20:12)
[2024-09-24] VITALS (11 sets, daily range): BP systolic 112–157; BP diastolic 61–86; PULSE 53–71; RESP 16–20; TEMP 36.4–37.2; O2SAT 87–98
[2024-09-24] MEDS: piperacillin-tazobactam 3.375 GM in sodium chloride 0.9% (plus) 50 ML IV ×3 (04:18→20:31)
[2024-09-24] MEDS: guaiFENesin 600 mg Tablet PO ×2 (04:19→16:12)
[2024-09-24] MEDS: TRAMadol 50 mg Tablet PO ×2 (04:21→20:35)
[2024-09-24 05:37] LABS: Basophils % 0.1 %; Eosinophils % 0.2 %; Hematocrit 37.6 % (36-47); Lymphocytes # 2.7 10^3/uL (0.8-4.8); Lymphocytes % 22.4 %; Mean Corpuscular HGB Conc 31.9 g/dL (30-55); Mean Corpuscular Hemoglobin 28.2 pg (27-33); Mean Corpuscular Volume 88.3 fl (85-98); Monocytes # 0.5 10^3/uL (0.2-0.9); Monocytes % 4.2 %; Neutrophils # 8.78 10^3/uL (1.8-7.7); Neutrophils % 72.6 %; Nucleated Red Blood Cells % 0 %; Platelet Count 357 10^3/cmm (157-399); Red Blood Count 4.26 10^6/uL (3.85-5.65); White Blood Count 12.09 10^3/uL (3.29-11.43)
[2024-09-24 06:01] LABS: Alanine Aminotransferase 17 U/L (0-33); Albumin Level 3.1 g/dL (3.5-5.2); Alkaline Phosphatase 58 U/L (35-105); Anion Gap 13.2 (5-19); Aspartate Amino Transferase 9 U/L (0-32); Blood Urea Nitrogen 19 mg/dL (8-23); Calcium 8.6 mg/dL (8.5-10.5); Carbon Dioxide 29 mmol/L (22-29); Chloride 100 mmol/L (98-107); Creatinine Clr Calc Pharmacy 47.6246; Globulin 2.2 g/dL (1.3-4.6); Glucose 107 mg/dL (65-115); Osmolality Calculated 289 mOsm/kg (285-295); Potassium 4.2 mmol/L (3.5-5.1); Sodium 138 mmol/L (136-145); Total Bilirubin 0.2 mg/dL (0.15-1.2); Total Protein 5.3 g/dL (6.6-8.7)
[2024-09-24] MEDS: escitalopram 10 mg Tablet 20 MG PO (07:41)
[2024-09-24] MEDS: loratadine 10 mg Tablet PO (07:41)
[2024-09-24] MEDS: pantoprazole DR 40 mg Tablet PO ×2 (07:42→17:14)
[2024-09-24] MEDS: apixaban 5 mg Tablet PO ×2 (07:42→17:14)
[2024-09-24] MEDS: predniSONE 20 mg Tablet 40 MG PO (07:42)
[2024-09-24] MEDS: ipratropium-albuterol 3 mL Neb INHALATION ×3 (09:46→20:59)
[2024-09-24] MEDS: budesonide 0.5 mg/2 mL Neb INHALATION ×2 (09:46→20:59)
[2024-09-24] MEDS: linezolid premix 600 MG/300 ML PREMIX 300 MG IV (10:45)
--- NOTE | 2024-09-24 13:24 | P.PN_ITS ---
Subjective 2 Subjective: Patient was seen this morning, she reports not feeling well this morning, denies any fevers, no chills, does have a cough, does report shortness of breath with exertion Vitals/I&O/Wt Last Vital Signs Temp 97.6 F 09/24/24 11:31 Pulse 66 09/24/24 11:31 Resp 18 09/24/24 11:31 BP 131/82 09/24/24 11:31 Pulse Ox 96 09/24/24 11:31 O2 Del Method Nasal Cannula 09/24/24 11:31 O2 Flow Rate 2 09/24/24 10:40 09/23/24 09/24/24 09/24/24 22:59 06:59 14:59 Intake Total 590 / 880 350 / 1230 110 / 110 Balance 590 / 880 350 / 1230 110 / 110 Weight last 48 hrs Weight 76.612 kg Weight 77.836 kg Physical Exam 2 Const: COMMON NORMALS: no acute distress and patient oriented x3 Resp: COMMON NORMALS: normal respiratory effort, No retractions and No use of accessory muscles AUSCULTATION: wheezes Cardio: COMMON NORMALS: regular rate, regular rhythm, S1 normal heart sound present and S2 normal heart sound present RATE: regular rate RHYTHM: r egular rhythm HEART SOUNDS: S1 normal heart sound present and S2 normal heart sound present GI: COMMON NORMALS: Normal to inspection, nondistended, normoactive bowel sounds present and non-tender Extremity: COMMON NORMALS: no pedal edema Neuro: COMMON NORMALS: patient oriented x3 Psych: COMMON NORMALS: mental status grossly normal Data 09/24/24 05:17 09/24/24 05:17 Micro: Microbiology 09/23/24 08:49 Gram Stain - Final Sputum - Expectorated Sputum Sputum Culture - Preliminary Gram Negative Rods 09/18/24 23:05 Blood Culture - Final Blood NO GROWTH AFTER 5 DAYS 09/18/24 22:58 Blood Culture - Final Blood NO GROWTH AFTER 5 DAYS 09/22/24 09:14 Blood Culture - Preliminary Blood NEGATIVE TO DATE 09/22/24 09:13 Blood Culture - Preliminary Blood NEGATIVE TO DATE A&P Assessment and plan (1) Sepsis: (2) Hyperthyroidism: (3) Malignant neoplasm of upper lobe, left bronchus or lung: (4) Acute exacerbation of chronic obstructive airways disease: (5) Paroxysmal atrial fibrillation with RVR: (6) H/O splenectomy: Plan Acute COPD exacerbation -Continue DuoNeb -Continue budesonide -dEscalate to prednisone 40 mg daily Sepsis -Sepsis features met given leukocytosis, elevated lactic acid, complaints of fever, ESR 92, CALVIN, elevated CRP -Source unclear -Chest x-ray no focal pneumonia ? Respiratory viral panel negative -No significant transaminitis, alk phos, or bili elevation -Will order CT chest abdomen pelvis no acute source of infection -Follow urinalysis UA within normal limits -Will broaden antibiotic coverage to Zosyn, Zyvox -Follow blood cultures, no acute growth -Right chest port in place, area looks clean and dry, will continue to monitor -ESR is 92, pelvis to evaluate thoracic and lumbar spine, CT neck no acute findings Recurrent nausea vomiting -Zofran -Promethazine History of splenectomy History of A-fib with RVR Full code Eliquis for DVT prophylaxis Plan for today follow sputum culture showing gram-negative rods, continue IV antibiotics, await cardiac echocardiogram, patient's blood cultures are within normal limits, port cultures so far no growth, Attestations 2 Medical Necessity Statement*: Patient requires hospitalization for for sepsis, gram-negative rods in sputum culture requiring IV Zosyn Diagnoses Sepsis A41.9 Hyperthyroidism E05.90 Malignant neoplasm of upper lobe, left bronchus or lung C34.12 Acute exacerbation of chronic obstructive airways disease J44.1 Paroxysmal atrial fibrillation with RVR I48.0 H/O splenectomy Z90.81
[2024-09-24] MEDS: atenolol 50 mg Tablet PO (20:32)
[2024-09-24] MEDS: clopidogrel 75 mg Tablet PO (20:32)
[2024-09-25] MEDS: guaiFENesin 600 mg Tablet PO (03:18)
[2024-09-25] MEDS: TRAMadol 50 mg Tablet PO (03:19)
[2024-09-25] MEDS: piperacillin-tazobactam 3.375 GM in sodium chloride 0.9% (plus) 50 ML IV (03:48)
[2024-09-25 03:53] VITALS: BP 147/90; PULSE 55; RESP 18; TEMP 36.5; O2SAT 97
[2024-09-25 05:47] LABS: Basophils % 0.2 %; Eosinophils # 0.1 10^3/uL (0.0-0.8); Eosinophils % 0.7 %; Hematocrit 36.9 % (36-47); Lymphocytes # 3.4 10^3/uL (0.8-4.8); Lymphocytes % 28.3 %; Mean Corpuscular HGB Conc 32.2 g/dL (30-55); Mean Corpuscular Hemoglobin 28.7 pg (27-33); Mean Corpuscular Volume 89.1 fl (85-98); Mean Platelet Volume 8.7 fL (7.4-10.4); Monocytes # 0.6 10^3/uL (0.2-0.9); Monocytes % 5.2 %; Neutrophils # 7.81 10^3/uL (1.8-7.7); Neutrophils % 64.9 %; Nucleated Red Blood Cells % 0 %; Platelet Count 332 10^3/cmm (157-399); Red Blood Count 4.14 10^6/uL (3.85-5.65); Red Cell Distribution Width 19.5 % (12.1-15.1); White Blood Count 12.03 10^3/uL (3.29-11.43)
[2024-09-25 06:04] LABS: Anion Gap 10.4 (5-19); Blood Urea Nitrogen 24 mg/dL (8-23); Calcium 8.6 mg/dL (8.5-10.5); Carbon Dioxide 31 mmol/L (22-29); Chloride 105 mmol/L (98-107); Creatinine Clr Calc Pharmacy 40.3548; Glucose 88 mg/dL (65-115); Osmolality Calculated 297 mOsm/kg (285-295); Potassium 4.4 mmol/L (3.5-5.1); Sodium 142 mmol/L (136-145)
[2024-09-25 07:31] VITALS: BP 153/88; PULSE 53; RESP 17; TEMP 36.7; O2SAT 97
[2024-09-25] MEDS: predniSONE 20 mg Tablet 40 MG PO (08:27)
[2024-09-25] MEDS: pantoprazole DR 40 mg Tablet PO (08:27)
[2024-09-25] MEDS: escitalopram 10 mg Tablet 20 MG PO (08:27)
[2024-09-25] MEDS: apixaban 5 mg Tablet PO (08:28)
[2024-09-25] MEDS: loratadine 10 mg Tablet PO (08:28)
--- NOTE | 2024-09-25 08:44 | PC.SOCIAL ---
IMM Updated Updated pt on IMM. No questions voiced. Provided pt a copy. Initialed, dated, & timed copy in chart.
[2024-09-25] MEDS: ipratropium-albuterol 3 mL Neb INHALATION (09:09)
[2024-09-25 09:10] VITALS: PULSE 59; RESP 16; O2SAT 98
[2024-09-25] MEDS: budesonide 0.5 mg/2 mL Neb INHALATION (09:10)
[2024-09-25 09:22] VITALS: PULSE 60
[2024-09-25 09:53] VITALS: BP 153/88; PULSE 53; RESP 17; TEMP 36.7; O2SAT 97
--- NOTE | 2024-09-25 09:54 | PC.NURSE ---
Discharge instructions provided to pt at this time. No questions or concerns voiced. States that her will be here around noon to pick her up. HOME rep arrives to bring pt her home oxygen tank. Pt refuses after multiple attempts to educate pt on her need for this. Danielle Ojeda RN also speaks with pt as well. Pt on RA now. States she does not want her Trelegy. States she will not use it at home anyway. HOME gives pt their contact info in case that pt changes her mind.
--- NOTE | 2024-09-25 09:57 | PC.NURSE ---
PAC deaccessed at this time by instructor modeling Meghna Mcgrath and a student.
[2024-09-25 11:30] VITALS: BP 100/65; PULSE 68; RESP 16; TEMP 36.9; O2SAT 91
--- NOTE | 2024-09-25 14:09 | PC.NURSE ---
has arrived to [facility] pick[facility] pt. Pt to private vehicle with all belongings via wheelchair.
--- NOTE | 2024-09-29 16:01 | P.DS_ITS ---
Discharge Providers Date of Admission: 09/18/24 22:31 Date of Discharge: September 29, 2024 Attending Provider at Admission: Ar Grant MD Attending Provider at Discharge: Marco Celestin MD Primary Care Provider: Maria Gomez APN Diagnoses at Discharge Discharge Diagnosis (1) Sepsis: Status: Resolved (2) Hyperthyroidism: Status: Acute Permanent problem details: Continue on home methimazole (3) Malignant neoplasm of upper lobe, left bronchus or lung: Status: Acute Permanent problem details: Stage IB - T2a, N0, M0 (4) Acute exacerbation of chronic obstructive airways disease: Status: Resolved (5) Paroxysmal atrial fibrillation with RVR: Status: Acute (6) H/O splenectomy: Status: Resolved Permanent problem details: 2007 Reason for Visit Reason for Visit: SOB Hospital Course Hospital Course This is a 74-year-old female, with a past medical history of non-small cell lung cancer, COPD, hypothyroidism, who presents [facility] for shortness of breath Was admitted to [facility] for COPD exacerbation, overall clinically improved with steroid therapy, discharged home On admission there was concern for elevated white blood cell count, with history of splenectomy, concerns for increased risk of sepsis, patient required an extensive workup during hospitalization -No hemodynamic compromise, no fevers, sepsis is fairly unlikely -He was managed with IV antibiotics -Chest x-ray no focal pneumonia, however her sputum cultures did grow Serratia marcescens, likely the source of her elevated white blood cell count Serratia marcescens pneumonia -Respiratory viral panel negative -No significant transaminitis, alk phos, or bili level elevation -CT chest abdomen pelvis no acute sources of infection -UA within normal limits -Repeat blood cultures were monitored for 5 days which were within normal limits -Due to elevated ESR at 92, CT of her lumbar, thoracic and cervical spine was within normal limits -There was concern for her port possibly being a source of infection although on examination there is no significant erythema, swelling, discharge from her port, blood cultures drawn from the port so far have no growth -Thus likely I think her white blood cell count elevation is likely from her chronic steroids, her Serratia marcescens positive sputum cultures concerns for pneumonia -Nonetheless if she would have any fevers, chills, or systemic symptoms immediately come to the emergency room -Emphasized with patient as she is status post splenectomy, fevers are life- threatening in her case, immediately come to the emergency room -Discussed with patient in detail, as her blood cultures remain unremarkable, her white blood cell count has resolved, overall she is clinically improved, no current physical evidence of port infection on examination, I think the likelihood of a port infection is fairly low. But low risk does not mean no risk, she should continue to monitor closely, follow-up with general surgery -Will have her follow-up with general surgery as outpatient, for monitoring of her port -Discussed with her to follow-up with oncology as outpatient Physical Exam Const: COMMON NORMALS: no acute distress and patient oriented x3 Resp: COMMON NORMALS: normal respiratory effort, No retractions, No use of accessory muscles and clear to auscultation bilaterally AUSCULTATION: clear to auscultation bilaterally Cardio: COMMON NORMALS: regular rate, regular rhythm, S1 normal heart sound present and S2 normal heart sound present RATE: regular rate RHYTHM: regular rhythm HEART SOUNDS: S1 normal heart sound present and S2 normal heart sound present GI: COMMON NORMALS: Normal to inspection, nondistended, normoactive bowel soun ds present and non-tender Extremity: COMMON NORMALS: no pedal edema Neuro: COMMON NORMALS: patient oriented x3 Psych: COMMON NORMALS: mental status grossly normal Discharge Data Studies Completed and Pending Completed Studies During Hospitalization Category Date Time Status CT cervical spin wo con* [id number] Routine Cat Scan 09/20/24 09:[address] chest abdomen pelvis [[place] [id number] Cat Scan 09/19/24 09:03 Completed ] Routine CT head wo con* [id number] Routine Cat Scan 09/20/24 09:39 Completed XR chest 1V portable [id number] Stat Exams 09/18/24 20:30 Completed Pending at discharge Category Date Time Status CV. echo complete* [id number] Routine Ultrasound 09/22/24 08:52 Taken Radiology Impressions Chest X-Ray 09/18/24 20:30 IMPRESSION: No acute findings. Chest/Abdomen/Pelvis CT 09/19/24 09:03 IMPRESSION: 1. No pneumonia. 2. Stable posttreatment changes medial LEFT upper lobe consistent with bronchiectasis, atelectasis and fibrosis. 3. No GI tract obstruction. 4. No pneumonia. 5. No ascites or adenopathy. No colitis. 6. Ventral abdominal wall hernias. Cervical Spine CT 09/20/24 09:39 IMPRESSION: 1. No bone destruction. No paravertebral inflammatory changes. 2. Multilevel mild to moderate foraminal stenosis from C3-4 through C6-7. Head CT 09/20/24 09:39 IMPRESSION: 1. No acute intracranial hemorrhage or edema. 2. Progression of small vessel ischemic disease and lacunar infarcts since 02/08/2023. 3. Remote LEFT parietal and temporal lobe infarct. 4. No sinus disease. Laboratory Results WBC 12.03 10^3/uL (3.29-11.43) H 09/25/24 05:29 RBC 4.14 10^6/uL (3.85-5.65) 09/25/24 05:29 Hgb 11.90 g/dL (11.27-16.99) 09/25/24 05:29 Hct 36.9 % (36-47) 09/25/24 05:29 MCV 89.1 fl (85-98) 09/25/24 05:29 MCH 28.7 pg (27-33) 09/25/24 05:29 MCHC 32.2 g/dL (30-55) 09/25/24 05:29 RDW 19.5 % (12.1-15.1) H 09/25/24 05:29 Plt Count 332 10^3/cmm (157-399) 09/25/24 05:29 MPV 8.7 fL (7.4-10.4) 09/25/24 05:29 Neut % (Auto) 64.9 % 09/25/24 05:29 Lymph % (Auto) 28.3 % 09/25/24 05:29 [place] % (Auto) 5.2 % 09/25/24 05:29 Eos % (Auto) 0.7 % 09/25/24 05:29 Baso % (Auto) 0.2 % 09/25/24 05:29 Neut # (Auto) 7.81 10^3/uL (1.8-7.7) H 09/25/24 05:29 Lymph # (Auto) 3.4 10^3/uL (0.8-4.8) 09/25/24 05:29 [place] # (Auto) 0.6 10^3/uL (0.2-0.9) 09/25/24 05:29 Eos # (Auto) 0.1 10^3/uL (0.0-0.8) 09/25/24 05:29 Baso # (Auto) 0.0 10^3/uL (0.0-0.1) 09/25/24 05:29 Nucleated RBC % (auto) 0 % 09/25/24 05:29 Nucleated RBCs # 0.0 /100WBC 09/25/24 05:29 ESR 45 mm/hr (0-15) H 09/19/24 02:47 Specimen Type Arterial 09/18/24 21:07 Sample Site Radial, left 09/18/24 21:07 ABG pH 7.62 (7.35-7.45) H* 09/18/24 21:07 ABG pCO2 27.5 mmHg (35-45) L 09/18/24 21:07 ABG pO2 124.0 mmHg (80.0-100.0) H 09/18/24 21:07 ABG HCO3 28.2 mmol/L (22-26) H 09/18/24 21:07 ABG O2 Saturation > 99.1 09/18/24 21:07 ABG Base Excess 7.6 mmol/L (-2.0-2.0) H 09/18/24 21:07 [place] Test Pos 09/18/24 21:07 A-a O2 Gradient 0.0 mmHg (5-10) L 09/18/24 21:07 Hematocrit 41.8 % (37-47) 09/18/24 21:07 Hgb O2 Saturation 97.9 % (95-100) 09/18/24 21:07 Carboxyhemoglobin 0.9 %THgb (0.4-20.1) 09/18/24 21:07 Methemoglobin 1.1 % (0.4-1.5) 09/18/24 21:07 Total Hemoglobin 13.6 g/dL (12-16) 09/18/24 21:07 Sodium 143.0 mmol/L (131-143) 09/18/24 21:07 Potassium 2.7 mmol/L (3.5-5.0) L 09/18/24 21:07 Glucose 162.0 mg/dL (70-115) H 09/18/24 21:07 Ionized Calcium 1.1 mmol/L (1.1-1.4) 09/18/24 21:07 O2 Delivery Device Nc 09/18/24 21:07 O2 Liters/Min 3.5 % 09/18/24 21:07 Specimen Drawn By Amandeep 09/18/24 21:07 Product Management Manager ID Amandeep 09/18/24 21:07 Sodium 142 mmol/L (136-145) 09/25/24 05:29 Potassium 4.4 mmol/L (3.5-5.1) 09/25/24 05:29 Chloride 105 mmol/L (98-107) 09/25/24 05:29 Carbon Dioxide 31 mmol/L (22-29) H 09/25/24 05:29 Anion Gap 10.4 (5-19) 09/25/24 05:29 BUN 24 mg/dL (8-23) H 09/25/24 05:29 Creatinine 1.2 mg/dL (0.5-0.9) H 09/25/24 05:29 GFR Calculation Not Reportable 09/25/24 05:29 Glucose 88 mg/dL (65-115) 09/25/24 05:29 Calculated Osmolality 297 mOsm/kg (285-295) H 09/25/24 05:29 Lactic Acid 3.1 mmol/L (0.5-2.2) H 09/18/24 20:35 Lactic Acid (Sepsis) 3.0 mmol/L (0.5-2.2) H 09/18/24 22:58 Lactate 1.3 mmol/L (0.5-2.2) 09/19/24 02:47 Calcium 8.6 mg/dL (8.5-10.5) 09/25/24 05:29 Magnesium 1.7 mg/dL (1.7-2.3) 09/19/24 02:47 Total Bilirubin 0.2 mg/dL (0.15-1.2) 09/24/24 05:17 AST 9 U/L (0-32) 09/24/24 05:17 ALT 17 U/L (0-33) 09/24/24 05:17 Alkaline Phosphatase 58 U/L (35-105) 09/24/24 05:17 Troponin T Baseline 16 ng/L (0-10) H 09/18/24 20:35 Troponin T 120 Minute 15.13 ng/L (0-10) H 09/18/24 22:58 Delta Troponin T -0.87 ABS# (0-10) L 09/18/24 22:58 Troponin T Hi Sens 6Hr 12.10 ng/L (0-10) H 09/19/24 02:47 Troponin T Hi Sens 6Hr Delta -3.90 ng/L (0-12) L 09/19/24 02:47 C-Reactive Protein 4.0 mg/L (0.0-4.9) 09/22/24 03:17 C-React Prot High Sens 5.290 mg/dL (0.0-0.3) H 09/18/24 20:35 NT-Pro-B Natriuret Pep 1196 pg/mL (0-125) H 09/18/24 20:35 Total Protein 5.3 g/dL (6.6-8.7) L 09/24/24 05:17 Albumin 3.1 g/dL (3.5-5.2) L 09/24/24 05:17 Globulin 2.2 g/dL (1.3-4.6) 09/24/24 05:17 Lipase 16 U/L (13-60) 09/19/24 16:37 Procalcitonin 0.05 ng/mL (0-0.5) 09/22/24 03:17 TSH 2.13 uIU/mL (0.27-4.20) 09/18/24 20:35 Urine Color Yellow (Yellow) 09/19/24 17:15 Urine Appearance Clear (CLEAR) 09/19/24 17:15 Urine pH 6.0 (5-7) 09/19/24 17:15 Ur Specific [place] 1.029 (1.005-1.030) 09/19/24 17:15 Urine Protein Trace (Negative) A 09/19/24 17:15 Urine Glucose (UA) Negative (Normal) 09/19/24 17:15 Urine Ketones Negative (Negative) 09/19/24 17:15 Urine Blood Negative (Negative) 09/19/24 17:15 Urine Nitrate Negative (Negative) 09/19/24 17:15 Urine Bilirubin Negative (Negative) 09/19/24 17:15 Urine Urobilinogen 1.0 mg/dL (Negative) 09/19/24 17:15 Ur Leukocyte Esterase Negative (Negative) 09/19/24 17:15 Urine RBC 0-2 /hpf (0-2) 09/19/24 17:15 Urine WBC 0-5 /hpf (0-5) 09/19/24 17:15 Ur Squamous Epith Cells 6-10 /hpf (0-5) 09/19/24 17:15 Amorphous Sediment Not Reportable 09/19/24 17:15 Urine Bacteria None seen /hpf (NONE) 09/19/24 17:15 Hyaline Casts 0.81 /lpf 09/19/24 17:15 Coronavirus (PCR) Negative (Negative) 09/18/24 21:00 Influenza A (PCR) Negative (Negative) 09/18/24 21:00 Influenza Type B (PCR) Negative (Negative) 09/18/24 21:00 RSV (PCR) Negative (Negative) 09/18/24 21:00 Vitals Last Vital Signs Temp 98.4 F 09/25/24 11:30 Pulse 68 09/25/24 11:30 Resp 16 09/25/24 11:30 BP 100/65 09/25/24 11:30 Pulse Ox 91 09/25/24 11:30 O2 Del Method Nasal Cannula 09/25/24 11:30 O2 Flow Rate 2 09/25/24 09:10 Discharge Plan Discharge Patient Disposition: Home Condition: Stable Prescriptions: New prednisone 20 mg Tablet 40 mg PO DAILY 5 Days Qty: 10 0RF levofloxacin 750 mg tablet 750 mg PO DAILY 5 Days Qty: 5 0RF Continued Eliquis 5 mg tablet 5 mg PO BID Qty: 180 3RF sumatriptan succinate 100 mg tablet See Rx Instructions .ROUTE .COMPLEX Qty: 9 0RF Dose Instruction: TAKE ONE TABLET BY MOUTH TWICE DAILY NEEDED FOR migraine HEADACHE wait AT least TWO HOURS between doses Rx Instructions: TAKE 1 TABLET PO TWICE DAILY NEEDED FOR migraine HEADACHE wait AT least 2 HOURS between doses furosemide 20 mg tablet 20 mg PO DAILY PRN (Reason: edema) Qty: 30 3RF Trelegy Ellipta 100-62.5-25 mcg blister with device 1 inh inhalation Q24H Qty: 60 0RF clopidogrel 75 mg tablet 75 mg PO DAILY@20 Hold Instructions: Doctor's Order pantoprazole [Protonix] 40 mg tablet,delayed release (DR/EC) 40 mg PO BID atenolol 50 mg tablet 50 mg PO DAILY@20 Anoro Ellipta 62.5-25 mcg/actuation blister with device 1 ea INHALATION DAILY loratadine 10 mg tablet 10 mg PO DAILY escitalopram oxalate 20 mg tablet 20 mg PO DAILY Discontinued prednisone 20 mg tablet See Rx Instructions .ROUTE .COMPLEX Rx Instructions: TAKE 1 TABLET BY MOUTH THREE TIMES DAILY FOR 3 DAYS THEN TAKE 1 TABLET TWICE DAILY FOR 2 DAYS THEN TAKE 1 TABLET DAILY FOR 2 DAYS prednisone 50 mg tablet 50 mg PO DAILY Discharge Orders: Discharge Order (Routine); Ordered 09/25/24 Ordered By: Marco Celestin Other Ambulatory Orders: DME: Oxygen (Order) Location: None Selected Ordered By: Marco Celestin Referrals: [facility] [place] [[place]] Maria Gomez APN [Primary Care Provider] - 09/30/24 11:00 am Fernando Raymond MD [Physician] - 10/23/24 9:00 am (port removal ) Discharge Diet: Cardiac Discharge Activity: Resume usual activity Patient Instructions: Prednisone (By mouth), Levofloxacin (By mouth) (Levaquin, Levaquin Leva-ewa), Using Oxygen at Home (GEN), COPD (Chronic Obstructive Pulmonary Disease) (GEN), COPD Stoplight, Opioid Safety Activity Restrictions/Additional Instructions: - If you have any fevers please come back to the emergency room -Follow-up with general surgery in 1 month Discharge Attestations Time Spent in Discharge Care*: greater than 30 min Quality Metrics Clinical Quality Measures [ No reported AMI, CVA or VTE this stay] Coding Level of Care Code 54712 Total time (in minutes) for Discharge: 45 Diagnoses Sepsis A41.9 Hyperthyroidism E05.90 Malignant neoplasm of upper lobe, left bronchus or lung C34.12 Acute exacerbation of chronic obstructive airways disease J44.1 Paroxysmal atrial fibrillation with RVR I48.0 H/O splenectomy Z90.81
== END 2024-09-25 14:18 | disposition home or self-care (01) | DRG 190 ==
LOC: ER 22:09 → MEDSURG 22:32
PROVIDERS: Admitting Provider Internal Medicine; Emergency Provider Emergency Medicine; PCP Nurse Practitioner Family; Visit Provider Family Medicine
DX: J44.1 Chronic obstructive pulmonary disease with (acute) exacerbation (principal); J15.69 Pneumonia due to other Gram-negative bacteria; E87.20 Acidosis, unspecified; N17.9 Acute kidney failure, unspecified; J44.0 Chronic obstructive pulmonary disease with (acute) lower respiratory infection; G43.711 Chronic migraine without aura, intractable, with status migrainosus; M48.061 Spinal stenosis, lumbar region without neurogenic claudication; E05.90 Thyrotoxicosis, unspecified without thyrotoxic crisis or storm; E78.5 Hyperlipidemia, unspecified; I10 Essential (primary) hypertension; F41.9 Anxiety disorder, unspecified; G47.00 Insomnia, unspecified; R11.2 Nausea with vomiting, unspecified; R00.0 Tachycardia, unspecified; R79.82 Elevated C-reactive protein (CRP); I48.0 Paroxysmal atrial fibrillation; Z79.02 Long term (current) use of antithrombotics/antiplatelets; Z79.01 Long term (current) use of anticoagulants; Z11.52 Encounter for screening for COVID-19; Z87.891 Personal history of nicotine dependence; Z85.118 Personal history of other malignant neoplasm of bronchus and lung; Z92.21 Personal history of antineoplastic chemotherapy; Z95.820 Peripheral vascular angioplasty status with implants and grafts; Z90.81 Acquired absence of spleen; Z79.899 Other long term (current) drug therapy; Z95.828 Presence of other vascular implants and grafts; Z83.3 Family history of diabetes mellitus; Z82.49 Family history of ischemic heart disease and other diseases of the circulatory system; Z82.3 Family history of stroke; Z81.8 Family history of other mental and behavioral disorders
CPT/HCPCS: 0241U; 36415; 36591; 70450; 71045; 71250; 72125; 74176; 80048; 80051; 80053; 81001; 82330; 82805; 83605; 83690; 83735; 83880; 84145; 84443; 84484; 85025; 85651; 86140; 86141; 87040; 87070; 87077; 87086; 87186; 87205; 93005; 93306; 94640; 94760; 96365; 96375; 99285; J0696; J2020; J2405; J2543; J2765; J2919; J3490; J7030; J7040; J7120; J7512; J7613; J7626

== ENCOUNTER → 2024-10-23 08:46 | Outpatient (BNVA) | payer MEDICARE, SELFPAY | PROVIDERS: PCP Nurse Practitioner Family; Visit Provider Surgery | DX: Z95.828 Presence of other vascular implants and grafts (principal); R03.0 Elevated blood-pressure reading, without diagnosis of hypertension | CPT/HCPCS: 99204 ==

== ENCOUNTER 2024-10-28 12:50 | Day surgery (SDC) | payer MEDICARE, SELFPAY ==
[2024-10-28] VITALS (10 sets, daily range): BP systolic 112–162; BP diastolic 76–118; PULSE 92–124; RESP 16–20; TEMP 36.6–36.8; O2SAT 90–99; BMI 31.4
--- NOTE | 2024-10-28 05:46 | W.PM.OPSUD ---
Surgery/Procedure H&P Update DATE OF PROCEDURE: October 28, 2024 DATE H&P PERFORMED: 10/23/24 H&P UPDATE INFORMATION: I have reviewed H&P completed within last 30 days, I have examined patient prior to procedure, No changes to prior documentation and H&P is in [facility] on date indicated PLANNED PROCEDURE: Operation Date: 10/28/24 14:30 Proposed Procedures p Portacath Removal - 80234(Not Applicable) - Fernando Raymond MD
[2024-10-28] MEDS: sodium chloride 0.9% 1,000 ML 30 ML IV (13:22)
--- NOTE | 2024-10-28 13:29 | ANES.PREANE2 ---
Pre-Anesthetic Assessment Height/Weight: Height 5 ft 1 in Weight 166 lb Temp Pulse Resp BP Pulse Ox O2 Del Method 98.0 F 124 H 16 162/118 96 Room Air 10/28/24 13:15 10/28/24 13:15 10/28/24 13:15 10/28/24 13:15 10/28/24 13:15 10/28/24 13:15 Preop Diagnosis: Request for port removal Operation Date: 10/28/24 14:30 Proposed Procedures p Portacath Removal - 11157(Not Applicable) - Fernando Raymond MD Was Beta Carmen taken within 24 hours: N/A Was Clonidine taken within 24 hours: N/A Last intake: Intake Last Liquid Date 10/27/24 Last Liquid Time 17:00 Last Solid Date 10/27/24 Last Solid Time 19:00 Social No alcohol and No tobacco Quit smoking a few years ago Exam alert, oriented x 3 and regular rate & rhythm Mild rhonchi heard on auscultation Airway Submandibular: within normal limits Cervical ROM: within normal limits Mallampati: Class III Dentition: other (Edentulous) Anesthetic Plan ASA status: 3 Anesthesia: MAC Other: No prior issues with anesthesia NPO since yesterday History of a brain aneurysm with stent placement over 10 years ago COPD, uses inhalers and home O2 Patient was recently admitted 2 weeks ago for pneumonia, completed antibiotics. Currently afebrile Labs 09/25/2024 reviewed Echo showing EF 55 to 60% METS less than 4 Plan for MAC anesthetic Medications/Allergies Home Medications Medication Instructions Recorded Confirmed Last Taken Type atenolol 50 mg tablet 50 mg PO DAILY@03/08/21 10/28/24 10/27/24 History clopidogrel 75 mg tablet 75 mg PO DAILY@03/08/21 10/25/24 10/23/24 History pantoprazole 40 mg tablet,delayed 40 mg PO BID 03/08/21 10/25/24 10/25/24 History release (Protonix) sumatriptan succinate 100 mg tablet See Rx Instructions .Route 04/10/23 10/25/24 10/25/24 Rx .COMPLEX #9 tabs fluticasone fur. 100 mcg-umeclid 1 inh inhalation Q24H #60 ea 07/11/24 10/28/24 10/28/24 Rx 62.5 mcg-vilant 25 mcg inhalat.powder (Trelegy Ellipta) escitalopram oxalate 20 mg tablet 20 mg PO DAILY 09/05/24 10/25/24 10/25/24 History umeclidinium 62.5 mcg-vilanterol 1 ea inhalation DAILY 09/19/24 10/28/24 10/28/24 History 25 mcg/actuation powdr for inhalation (Anoro Ellipta) apixaban 5 mg tablet (Eliquis) 5 mg PO BID 10/25/24 10/25/24 10/23/24 History Allergies Allergy/AdvReac Type Severity Reaction Status Date / Time No Known Allergies Allergy Verified 10/23/24 09:00 Current Medications Generic Name Dose Route Start Last Admin Trade Name Freq PRN Reason Stop Dose Admin Sodium Chloride 1,000 mls @ 30 mls/hr 10/28/24 13:00 10/28/24 13:22 Sodium Chloride 0.9% IV 10/29/24 12:59 30 mls/hr .Q24H MARIANO Administration PFSH Anesthesia Medical History (Updated 10/23/24 @ 09:01 by Linda Gupta, CT) Chronic migraine without aura, intractable, with status migrainosus Non-small cell lung cancer Chronic migraine Lumbar spinal stenosis Degenerative joint disease of spine COPD (chronic obstructive pulmonary disease) Hyperthyroidism Continue on home methimazole Basilar artery aneurysm Dyslipidemia Hypertension Anxiety disorder Insomnia Plantar fasciitis Statin intolerance Gastritis Surgical History History of esophagogastroduodenoscopy (EGD) 2019 -gastritis Status post colonoscopy 2018: Normal repeat in 10 years S/P coil embolization of cerebral aneurysm 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, stent subsequently removed H/O section H/O splenectomy 2007 Family History Mother Diabetes Father Heart disease Grandmother Stroke Other Suicide Denies family history of CAD (coronary artery disease) Clotting disorder Dementia Hyperlipidemia Psychiatric illness Chronic kidney disease (CKD) Anesthesia complication Bleeding disorder Lung disease Cancer Hypertension Social History (Updated 10/23/24 @ 09:05 by Linda Gupta, CT) Smoking and tobacco/nicotine status: former use of tobacco/nicotine Quit status (tobacco/nicotine): has quit using Year quit tobacco: 2016 [id number] Second hand smoke exposure: No Alcohol intake: former Substance/Drug Use: current Substance/Drug use frequency: few times a week Lives independently: Yes Household members: spouse Marital status: service: No Current occupational status: retired Pets and animals: Yes Do you think of yourself as: Straight/Heterosexual Current gender identity: Female Data Anesthesia Cardiac Studies: Echocardiogram 09/22/24 Echocardiogram Ultrasound 04/21/21
[2024-10-28] MEDS: ceFAZolin 2,000 mg SDV 2000 MG IVP (13:33)
[2024-10-28] MEDS: BUPivacaine 0.25% INJ 10 mL INJECTION (13:49)
[2024-10-28] MEDS: lidocaine-epi 1% 20 mL INJ INJECTION (13:49)
--- NOTE | 2024-10-28 14:09 | PM.OP ---
Operative Report Date of procedure: October 28, 2024 Pre-op diagnosis: History of lung cancer Post-op diagnosis: Same Post-op findings: Port-A-Cath noted in place, no evidence of infection Procedure done: Excision of right upper chest Port-A-Cath Specimens removed/disposition: Port-A-Cath, port capsule Pathology: port capsule Surgeon: Fernando Raymond MD Master Automotive Glass Technician: JUSTIN OR Staff Estimated blood loss: 5 Complications: none Brief History: This is a 74-year-old female who presents to my office for excision of Port-A-Cath, she had history of lung cancer, has completed therapy and once the port to be removed. We proceeded to the OR after discussion of all risks and benefits as documented in my preop note Procedure: Patient was brought into the OR, she was placed in a supine position. Moderate anesthesia sedation was given, the right upper chest was prepped and draped in usual sterile fashion. A timeout was conducted. I then infiltrated 10 cc of local anesthesia around the port. At 3 cm incision was made in the area of previous incision, the incision was deepened until the port was identified, the capsule was opened and the port was delivered through the skin. While holding pressure at the level of the venous access site I then proceeded to remove the port, port came out completely without any resistance. I then proceeded to obliterate the tract with a #3-0 Vicryl [id number] suture. The port capsule was then excised with Metzenbaum. The wound was irrigated, hemostasis was verified. The wound was closed in layers using #3-0 Vicryl for the subcutaneous tissue #4 Monocryl for the skin. Dermabond was applied. A compressive dressing was applied on top. At the end of the procedure all counts were correct, the patient tolerated well the procedure was transferred to the PACU in stable condition.
[2024-10-28] MEDS: albuterol 2.5 mg/3 mL Neb INHALATION (14:51)
--- NOTE | 2024-10-28 14:55 | SUR.PHASEII ---
faint wheezing in upper lobes.pt continuing to cough. breathing treatment given.
--- NOTE | 2024-10-28 16:14 | ANE.PACU2 ---
Inpatient post-anesthesia follow up: Airway intact: Yes Vital signs: Temperature 97.8 F Pulse Rate 99 Respiratory Rate 18 Blood Pressure 132/88 Pulse Oximetry 91 Oxygen Delivery Me thod Room Air Oxygen Flow Rate 6 Fraction of Inspir ed Oxygen Hydration adequate: Yes Nausea and vomiting: No Pain level: 1 Mental status: Baseline
== END 2024-10-28 16:15 | disposition home or self-care (01) ==
PROVIDERS: PCP Nurse Practitioner Family; Visit Provider Surgery
PROC: (CPT 36589; principal; 2024-10-28 14:20)
DX: Z45.2 Encounter for adjustment and management of vascular access device (principal); Z85.118 Personal history of other malignant neoplasm of bronchus and lung; J44.9 Chronic obstructive pulmonary disease, unspecified; Z99.81 Dependence on supplemental oxygen; E78.5 Hyperlipidemia, unspecified; F41.9 Anxiety disorder, unspecified; Z87.891 Personal history of nicotine dependence
CPT/HCPCS: 36590; 88300; J0690; J2250; J2704; J3490; J7030; J7613

== ENCOUNTER 2025-01-24 10:57 | Outpatient (CLI) | payer MEDICARE, SELFPAY ==
--- NOTE | 2025-01-24 11:06 | US_ITS ---
WS: [id number] THYROID ULTRASOUND HISTORY: ENLARGED THYROID COMPARISON: 05/02/2012 Right lobe: 1.6 cm x 1.8 cm x 3.2 cm (w x ap x l). Volume: 4.5 cm3. Mildly heterogeneous gland. No dominant nodule. Surface of the gland is slightly irregular. No increased vascularity. Left lobe: 1.4 cm x 1.6 cm x 3.7 cm (w x ap x l). Volume: 3.9 cm3. Normal sized gland. No dominant nodule. Surface of the gland is slightly nodular. Normal vascularity. Isthmus: 0.3 cm. US/US thyroid [id number] IMPRESSION: TI-RADS 1; benign. No FNA recommended.
== END 2025-01-24 10:58 | disposition home or self-care (01) ==
PROVIDERS: PCP Nurse Practitioner Family; Visit Provider Nurse Practitioner Family
DX: E04.9 Nontoxic goiter, unspecified (principal)
CPT/HCPCS: 76536

== ENCOUNTER 2025-03-14 15:33 | Emergency (ER) | payer MEDICARE, SELFPAY ==
[2025-03-14] VITALS (11 sets, daily range): BP systolic 124–177; BP diastolic 85–153; PULSE 71–105; RESP 16–20; TEMP 36.4; O2SAT 94–100; BMI 26.4
--- NOTE | 2025-03-14 15:42 | XRR_ITS ---
PROCEDURE INFORMATION: Exam: XR Chest Exam date and time: 03/14/2025 4:20 PM Age: 75 years old Clinical indication: Cough and dyspnea; Additional info: Dyspnea/cough TECHNIQUE: Imaging protocol: Radiologic exam of the chest. Views: 1 view. COMPARISON: [place] [id number] 09/19/2024 9:47 AM FINDINGS: Lungs: Both lungs demonstrate diffuse hyperinflation along with chronic interstitial coarsening. However, I see no evidence of mass or confluent infiltrate. Pleural spaces: Unremarkable. No pleural effusion. No pneumothorax. Heart/Mediastinum: Unremarkable. No cardiomegaly. Bones/joints: Unremarkable. XR/XR chest 1V portable [id number] IMPRESSION: Stable COPD changes
--- NOTE | 2025-03-14 15:58 | W.ED.GIBLEED ---
Documented by User: Jayden Otero, 03/15/25 07:08 HPI - GI Bleed General: Chief complaint: GI Bleed Stated complaint: vomiting blood Time Seen by Provider: 03/14/25 15:42 History of Present Illness: 75-year-old female presents emergency room complaining of hematemesis and coffee-ground emesis mixed. She says she can taste blood in her mouth at times. She has also had cough and congestion he does have a history of COPD she does still smoke she is not usually on oxygen at home except at night she will use up to 2 L when she feels like she needs it during the day she has not been using any. She denies any chest pain but has had a productive cough as well as a hematemesis coughing emesis no fever sweats or chills. Associated symptoms: Denies abdominal pain, chills, fever(s) or rash Related Data Home Medications ?Medication ?Instructions ?Recorded ?Confirmed atenolol 50 mg tablet 50 mg PO DAILY@03/08/21 03/14/25 clopidogrel 75 mg tablet 75 mg PO DAILY@03/08/21 03/14/25 Held on 10/28/24. Instructions: Resume on 10/31/24. pantoprazole 40 mg tablet,delayed 40 mg PO BID 03/08/21 03/14/25 release (Protonix) escitalopram oxalate 20 mg tablet 20 mg PO DAILY 09/05/24 03/14/25 apixaban 5 mg tablet (Eliquis) 5 mg PO BID 10/25/24 03/14/25 Held on 10/28/24. Instructions: Resume on 10/31/24. Previous Rx's ?Medication ?Instructions ?Recorded sumatriptan succinate 100 mg tablet See Rx Instructions .Route 04/10/23 .COMPLEX #9 tabs fluticasone fur. 100 mcg-umeclid 1 inh inhalation Q24H #60 ea 07/11/24 62.5 mcg-vilant 25 mcg inhalat.powder (Trelegy Ellipta) Allergies Allergy/AdvReac Type Severity Reaction Status Date / Time No Known Allergies Allergy Verified 10/23/24 09:00 Review of Systems Const: Denies: fever(s) or chills Card: Denies: chest pain Resp: Denies: dyspnea GI: Denies: abdominal pain : Denies: dysuria, urinary frequency or urinary urgency Musc: Denies: neck pain or back pain Skin/Breast: Denies: rash PFSH ED PFSH: Medical History Chronic migraine without aura, intractable, with status migrainosus Non-small cell lung cancer Chronic migraine Lumbar spinal stenosis Degenerative joint disease of spine COPD (chronic obstructive pulmonary disease) Hyperthyroidism Continue on home methimazole Basilar artery aneurysm Dyslipidemia Hypertension Anxiety disorder Insomnia Plantar fasciitis Statin intolerance Gastritis Surgical History History of esophagogastroduodenoscopy (EGD) 2019 -gastritis Status post colonoscopy 2018: Normal repeat in 10 years S/P coil embolization of cerebral aneurysm 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 2016, stent subsequently removed H/O section H/O splenectomy 2007 Family History Mother Diabetes Father Heart disease Grandmother Stroke Other Suicide Denies family history of CAD (coronary artery disease) Clotting disorder Dementia Hyperlipidemia Psychiatric illness Chronic kidney disease (CKD) Anesthesia complication Bleeding disorder Lung disease Cancer Hypertension Social History Smoking and tobacco/nicotine status: former use of tobacco/nicotine Quit status (tobacco/nicotine): has quit using Year quit tobacco: 2017 [id number] Second hand smoke exposure: No Alcohol intake: former Substance/Drug Use: current Substance/Drug use frequency: few times a week Lives independently: Yes Household members: spouse Marital status: service: No Current occupational status: retired Pets and animals: Yes Do you think of yourself as: Straight/Heterosexual Current gender identity: Female Physical Exam Const: GENERAL APPEARANCE: cooperative ORIENTATION/CONSCIOUSNESS: Yes awake, Yes oriented to person, Yes oriented to place and Yes oriented to time HENMT: COMMON NORMALS: normocephalic, atraumatic and hearing grossly normal bilaterally HEAD & SCALP: normocephalic and atraumatic OTHER: Moderate stridor noted difficult time enunciating words as well. Patient does not have any slurring of her speech or other focal neurologic deficits this appears to be more a phonation issue Resp: COMMON NORMALS: normal respiratory effort, No retractions and No use of accessory muscles AUSCULTATION: wheezes (Scant) Cardio: COMMON NORMALS: regular rate, regular rhythm and No murmurs present (Cardio) RATE: regular rate RHYTHM: regular rhythm GI: COMMON NORMALS: Soft to palpation and No hepatosplenomegaly present AUSCULTATION: Yes normoactive bowel sounds PALPATION: Yes Soft to palpation, No Tenderness to palpation present (GI), No Guarding due to palpation present (GI) and Yes No hepatosplenomegaly present Extremity: COMMON NORMALS: normal to inspection, capillary refill normal, no clubbing, cyanosis or edema, no calf tenderness and no pedal edema Neuro: SENSORIUM/ORIENTATION: Yes oriented to person, Yes oriented to place and Yes oriented to time Skin: COMMON NORMALS: no rashes or lesions noted GENERAL SKIN EXAM: no rashes or lesions noted Course Vital Signs: Vital signs: Vital Signs Temperature 97.6 F 03/14/25 15:37 Pulse Rate 89 03/15/25 00:38 Respiratory Rate 20 H 03/15/25 00:00 Blood Pressure 179/119 03/15/25 00:38 Pulse Oximetry 98 03/15/25 00:38 Oxygen Delivery Me thod Room Air 03/15/25 00:00 Oxygen Flow Rate 2.5 03/14/25 23:36 MDM - GI Bleed Medical Decision Making Care signed out to Dr. medley at change of shift. See final notes for diagnosis and disposition. Lab Data 03/14/25 15:59 03/14/25 15:59 Radiology Impressions Chest X-Ray 03/14/25 15:42 IMPRESSION: Stable COPD changes Neck CT 03/14/25 16:40 IMPRESSION: Diffuse thickening of the false and true vocal cords and narrowing of the laryngeal inlet, 1.6 cm low-density left paraglottic nodule . Contiguous soft tissue thickening extends to the pyriformis fossa/hypopharynx. The findings are suspicious for neoplastic etiology until proven otherwise. ENT consult recommended. ADDENDUM: 03/14/25 [id number] COMMENT: THIS REPORT CONTAINS FINDINGS THAT MAY BE CRITICAL TO PATIENT CARE. The exam findings were verbally communicated by me to Dr. Medley via telephone conference at 7:00 PM CDT on 03/14/2025. The findings were acknowledged and understood. Chest/Abdomen/Pelvis CT 03/14/25 17:33 IMPRESSION: 1. No acute intrathoracic findings. 2. Emphysema and stable posttreatment changes within medial left upper lobe. IMPRESSION: 1. No acute abdominopelvic findings. 2. Chronic findings as described above. Laboratory Results WBC 15.86 10^3/uL (3.29-11.43) H 03/14/25 15:59 RBC 5.25 10^6/uL (3.85-5.65) 03/14/25 15:59 Hgb 13.60 g/dL (11.27-16.99) 03/14/25 15:59 Hct 42.2 % (36-47) 03/14/25 15:59 MCV 80.4 fl (85-98) L 03/14/25 15:59 MCH 25.9 pg (27-33) L 03/14/25 15:59 MCHC 32.2 g/dL (30-55) 03/14/25 15:59 RDW 19.9 % (12.1-15.1) H 03/14/25 15:59 Plt Count 451 10^3/cmm (157-399) H 03/14/25 15:59 MPV 9.6 fL (7.4-10.4) 03/14/25 15:59 Neut % (Auto) 70.2 % 03/14/25 15:59 Lymph % (Auto) 22.4 % 03/14/25 15:59 Caroline % (Auto) 6.9 % 03/14/25 15:59 Eos % (Auto) 0.0 % 03/14/25 15:59 Baso % (Auto) 0.1 % 03/14/25 15:59 Neut # (Auto) 11.13 10^3/uL (1.8-7.7) H 03/14/25 15:59 Lymph # (Auto) 3.6 10^3/uL (0.8-4.8) 03/14/25 15:59 Caroline # (Auto) 1.1 10^3/uL (0.2-0.9) H 03/14/25 15:59 Eos # (Auto) 0.0 10^3/uL (0.0-0.8) 03/14/25 15:59 Baso # (Auto) 0.0 10^3/uL (0.0-0.1) 03/14/25 15:59 Nucleated RBC % (auto) 0 % 03/14/25 15:59 Nucleated RBCs # 0.0 /100WBC 03/14/25 15:59 PT 14.10 SECONDS (12.1-14.9) 03/14/25 15:59 PT Cancelled 03/14/25 15:59 INR 1.02 (0.8-1.2) 03/14/25 15:59 INR Cancelled 03/14/25 15:59 Specimen Type Arterial 03/14/25 16:00 Sample Site Radial, right 03/14/25 16:00 ABG pH 7.49 (7.35-7.45) H 03/14/25 16:00 ABG pCO2 35.6 mmHg (35-45) 03/14/25 16:00 ABG pO2 85.3 mmHg (80.0-100.0) 03/14/25 16:00 ABG HCO3 27.2 mmol/L (22-26) H 03/14/25 16:00 ABG O2 Saturation 97.7 03/14/25 16:00 ABG Base Excess 4.0 mmol/L (-2.0-2.0) H 03/14/25 16:00 [place] Test Pos 03/14/25 16:00 A-a O2 Gradient 2.5 mmHg (5-10) L 03/14/25 16:00 Hematocrit 43.8 % (37-47) 03/14/25 16:00 Hgb O2 Saturation 95.7 % (95-100) 03/14/25 16:00 Carboxyhemoglobin 1.1 %THgb (0.4-20.1) 03/14/25 16:00 Methemoglobin 0.9 % (0.4-1.5) 03/14/25 16:00 Total Hemoglobin 14.3 g/dL (12-16) 03/14/25 16:00 Sodium 141.0 mmol/L (131-143) 03/14/25 16:00 Potassium 3.0 mmol/L (3.5-5.0) L 03/14/25 16:00 Glucose 124.0 mg/dL (70-115) H 03/14/25 16:00 Ionized Calcium 1.2 mmol/L (1.1-1.4) 03/14/25 16:00 O2 Delivery Device Nc 03/14/25 16:00 O2 Liters/Min 2.0 % 03/14/25 16:00 Commercial Loan Manager ID Noelle 03/14/25 16:00 Sodium 140 mmol/L (136-145) 03/14/25 15:59 Sodium Cancelled 03/14/25 15:59 Potassium 3.5 mmol/L (3.5-5.1) 03/14/25 15:59 Potassium Cancelled 03/14/25 15:59 Chloride 99 mmol/L (98-107) 03/14/25 15:59 Chloride Cancelled 03/14/25 15:59 Carbon Dioxide 24 mmol/L (22-29) 03/14/25 15:59 Carbon Dioxide Cancelled 03/14/25 15:59 Anion Gap 20.5 (5-19) H 03/14/25 15:59 Anion Gap Cancelled 03/14/25 15:59 BUN 17 mg/dL (8-23) 03/14/25 15:59 BUN Cancelled 03/14/25 15:59 Creatinine 1.5 mg/dL (0.5-0.9) H 03/14/25 15:59 Creatinine Cancelled 03/14/25 15:59 GFR Calculation Cancelled 03/14/25 15:59 GFR Calculation Not Reportable 03/14/25 15:59 Glucose 116 mg/dL (65-115) H 03/14/25 15:59 Glucose Cancelled 03/14/25 15:59 Calculated Osmolality 293 mOsm/kg (285-295) 03/14/25 15:59 Calculated Osmolality Cancelled 03/14/25 15:59 Calcium 9.7 mg/dL (8.5-10.5) 03/14/25 15:59 Calcium Cancelled 03/14/25 15:59 Total Bilirubin 0.7 mg/dL (0.15-1.2) 03/14/25 15:59 Total Bilirubin Cancelled 03/14/25 15:59 AST 14 U/L (0-32) 03/14/25 15:59 AST Cancelled 03/14/25 15:59 ALT 6 U/L (0-33) 03/14/25 15:59 ALT Cancelled 03/14/25 15:59 Alkaline Phosphatase 91 U/L (35-105) 03/14/25 15:59 Alkaline Phosphatase Cancelled 03/14/25 15:59 Troponin T Baseline 16 ng/L (0-10) H 03/14/25 15:59 Troponin T Baseline Cancelled 03/14/25 15:59 Troponin T 120 Minute 15.69 ng/L (0-10) H 03/14/25 13:33 Delta Troponin T -0.31 ABS# (0-10) L 03/14/25 13:33 Total Protein 6.9 g/dL (6.6-8.7) 03/14/25 15:59 Total Protein Cancelled 03/14/25 15:59 Albumin 4.2 g/dL (3.5-5.2) 03/14/25 15:59 Albumin Cancelled 03/14/25 15:59 Globulin 2.7 g/dL (1.3-4.6) 03/14/25 15:59 Globulin Cancelled 03/14/25 15:59 TSH 2.12 uIU/mL (0.27-4.20) 03/14/25 15:59 TSH Cancelled 03/14/25 15:59 Blood Type O Positive 03/14/25 15:59 Rho(D) Type Rh positive 03/14/25 15:59 Antibody Screen Negative 03/14/25 15:59 Discharge Plan Discharge Patient Disposition: Short Term Hosp w Plan Readm Clinical Impression: Laryngeal mass Condition: Stable Referrals: Maria Gomez APN [Primary Care Provider] - Print Language: Belizean Coding Level of Care Code ED Table Saw Operator for Chg Fwd Documented by User: Hansel Medley DO 03/15/25 04:40 HPI - GI Bleed General: Chief complaint: GI Bleed Stated complaint: vomiting blood Time Seen by Provider: 03/14/25 15:42 Related Data Home Medications ?Medication ?Instructions ?Recorded ?Confirmed atenolol 50 mg tablet 50 mg PO DAILY@03/08/21 03/14/25 clopidogrel 75 mg tablet 75 mg PO DAILY@20 03/08/21 03/14/25 Held on 10/28/24. Instructions: Resume on 10/31/24. pantoprazole 40 mg tablet,delayed 40 mg PO BID 03/08/21 03/14/25 release (Protonix) escitalopram oxalate 20 mg tablet 20 mg PO DAILY 09/05/24 03/14/25 apixaban 5 mg tablet (Eliquis) 5 mg PO BID 10/25/24 03/14/25 Held on 10/28/24. Instructions: Resume on 10/31/24. Previous Rx's ?Medication ?Instructions ?Recorded sumatriptan succinate 100 mg tablet See Rx Instructions .Route 04/10/23 .COMPLEX #9 tabs fluticasone fur. 100 mcg-umeclid 1 inh inhalation Q24H #60 ea 07/11/24 62.5 mcg-vilant 25 mcg inhalat.powder (Trelegy Ellipta) Allergies Allergy/AdvReac Type Severity Reaction Status Date / Time No Known Allergies Allergy Verified 10/23/24 09:00 [facility] ED PFSH: Medical History Chronic migraine without aura, intractable, with status migrainosus Non-small cell lung cancer Chronic migraine Lumbar spinal stenosis Degenerative joint disease of spine COPD (chronic obstructive pulmonary disease) Hyperthyroidism Continue on home methimazole Basilar artery aneurysm Dyslipidemia Hypertension Anxiety disorder Insomnia Plantar fasciitis Statin intolerance Gastritis Surgical History History of esophagogastroduodenoscopy (EGD) 2019 -gastritis Status post colonoscopy 2018: Normal repeat in 10 years S/P coil embolization of cerebral aneurysm 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, stent subsequently removed H/O section H/O splenectomy 2007 Family History Mother Diabetes Father Heart disease Grandmother Stroke Other Suicide Denies family history of CAD (coronary artery disease) Clotting disorder Dementia Hyperlipidemia Psychiatric illness Chronic kidney disease (CKD) Anesthesia complication Bleeding disorder Lung disease Cancer Hypertension Social History Smoking and tobacco/nicotine status: former use of tobacco/nicotine Quit status (tobacco/nicotine): has quit using Year quit tobacco: 2017 [id number] Second hand smoke exposure: No Alcohol intake: former Substance/Drug Use: current Substance/Drug use frequency: few times a week Lives independently: Yes Household members: spouse Marital status: service: No Current occupational status: retired Pets and animals: Yes Do you think of yourself as: Straight/Heterosexual Current gender identity: Female Course Vital Signs: Vital signs: Vital Signs Temperature 97.6 F 03/14/25 15:37 Pulse Rate 89 03/15/25 00:38 Respiratory Rate 20 H 03/15/25 00:00 Blood Pressure 179/119 03/15/25 00:38 Pulse Oximetry 98 03/15/25 00:38 Oxygen Delivery Me thod Room Air 03/15/25 00:00 Oxygen Flow Rate 2.5 03/14/25 23:36 MDM - GI Bleed Medical Decision Making Care signed out to Dr. medley at change of shift. See final notes for diagnosis and disposition. Care assumed from Dr. Anaya. Patient is awaiting CT neck/chest, abdomen, and pelvis. Her chief complaint was that her thyroid was choking her and that she had had several bouts of coffee-ground emesis. Patient is satting 94% on 2 L. Chart reviewed including labs, EKG, and vital signs. Patient's treatments up to this point have included Solu-Medrol and DuoNeb. Working diagnosis at this time is COPD exacerbation. 1919: Received a call from Dr. Mazariegos the [facility] radiologist. Patient's neck CT was concerning for neoplasm and recommended ENT consultation. Reevaluation the patient did demonstrate audible stridor. [facility] transfer barneveld was contacted to initiate transfer to [place] for ENT. 1941: Patient was accepted by Dr. Coyle at [facility] in [place]. Awaiting bed assignment Patient transferred to [facility]. Lab Data 03/14/25 15:59 03/14/25 15:59 Radiology Impressions Chest X-Ray 03/14/25 15:42 IMPRESSION: Stable COPD changes Neck CT 03/14/25 16:40 IMPRESSION: Diffuse thickening of the false and true vocal cords and narrowing of the laryngeal inlet, 1.6 cm low-density left paraglottic nodule . Contiguous soft tissue thickening extends to the pyriformis fossa/hypopharynx. The findings are suspicious for neoplastic etiology until proven otherwise. ENT consult recommended. ADDENDUM: 03/14/25 [id number] COMMENT: THIS REPORT CONTAINS FINDINGS THAT MAY BE CRITICAL TO PATIENT CARE. The exam findings were verbally communicated by me to Dr. Medley via telephone conference at 7:00 PM CDT on 03/14/2025. The findings were acknowledged and understood. Chest/Abdomen/Pelvis CT 03/14/25 17:33 IMPRESSION: 1. No acute intrathoracic findings. 2. Emphysema and stable posttreatment changes within medial left upper lobe. IMPRESSION: 1. No acute abdominopelvic findings. 2. Chronic findings as described above. Laboratory Results WBC 15.86 10^3/uL (3.29-11.43) H 03/14/25 15:59 RBC 5.25 10^6/uL (3.85-5.65) 03/14/25 15:59 Hgb 13.60 g/dL (11.27-16.99) 03/14/25 15:59 Hct 42.2 % (36-47) 03/14/25 15:59 MCV 80.4 fl (85-98) L 03/14/25 15:59 MCH 25.9 pg (27-33) L 03/14/25 15:59 MCHC 32.2 g/dL (30-55) 03/14/25 15:59 RDW 19.9 % (12.1-15.1) H 03/14/25 15:59 Plt Count 451 10^3/cmm (157-399) H 03/14/25 15:59 MPV 9.6 fL (7.4-10.4) 03/14/25 15:59 Neut % (Auto) 70.2 % 03/14/25 15:59 Lymph % (Auto) 22.4 % 03/14/25 15:59 Caroline % (Auto) 6.9 % 03/14/25 15:59 Eos % (Auto) 0.0 % 03/14/25 15:59 Baso % (Auto) 0.1 % 03/14/25 15:59 Neut # (Auto) 11.13 10^3/uL (1.8-7.7) H 03/14/25 15:59 Lymph # (Auto) 3.6 10^3/uL (0.8-4.8) 03/14/25 15:59 Caroline # (Auto) 1.1 10^3/uL (0.2-0.9) H 03/14/25 15:59 Eos # (Auto) 0.0 10^3/uL (0.0-0.8) 03/14/25 15:59 Baso # (Auto) 0.0 10^3/uL (0.0-0.1) 03/14/25 15:59 Nucleated RBC % (auto) 0 % 03/14/25 15:59 Nucleated RBCs # 0.0 /100WBC 03/14/25 15:59 PT 14.10 SECONDS (12.1-14.9) 03/14/25 15:59 PT Cancelled 03/14/25 15:59 INR 1.02 (0.8-1.2) 03/14/25 15:59 INR Cancelled 03/14/25 15:59 Specimen Type Arterial 03/14/25 16:00 Sample Site Radial, right 03/14/25 16:00 ABG pH 7.49 (7.35-7.45) H 03/14/25 16:00 ABG pCO2 35.6 mmHg (35-45) 03/14/25 16:00 ABG pO2 85.3 mmHg (80.0-100.0) 03/14/25 16:00 ABG HCO3 27.2 mmol/L (22-26) H 03/14/25 16:00 ABG O2 Saturation 97.7 03/14/25 16:00 ABG Base Excess 4.0 mmol/L (-2.0-2.0) H 03/14/25 16:00 [place] Test Pos 03/14/25 16:00 A-a O2 Gradient 2.5 mmHg (5-10) L 03/14/25 16:00 Hematocrit 43.8 % (37-47) 03/14/25 16:00 Hgb O2 Saturation 95.7 % (95-100) 03/14/25 16:00 Carboxyhemoglobin 1.1 %THgb (0.4-20.1) 03/14/25 16:00 Methemoglobin 0.9 % (0.4-1.5) 03/14/25 16:00 Total Hemoglobin 14.3 g/dL (12-16) 03/14/25 16:00 Sodium 141.0 mmol/L (131-143) 03/14/25 16:00 Potassium 3.0 mmol/L (3.5-5.0) L 03/14/25 16:00 Glucose 124.0 mg/dL (70-115) H 03/14/25 16:00 Ionized Calcium 1.2 mmol/L (1.1-1.4) 03/14/25 16:00 O2 Delivery Device Nc 03/14/25 16:00 O2 Liters/Min 2.0 % 03/14/25 16:00 Commercial Loan Manager ID Walci 03/14/25 16:00 Sodium 140 mmol/L (136-145) 03/14/25 15:59 Sodium Cancelled 03/14/25 15:59 Potassium 3.5 mmol/L (3.5-5.1) 03/14/25 15:59 Potassium Cancelled 03/14/25 15:59 Chloride 99 mmol/L (98-107) 03/14/25 15:59 Chloride Cancelled 03/14/25 15:59 Carbon Dioxide 24 mmol/L (22-29) 03/14/25 15:59 Carbon Dioxide Cancelled 03/14/25 15:59 Anion Gap 20.5 (5-19) H 03/14/25 15:59 Anion Gap Cancelled 03/14/25 15:59 BUN 17 mg/dL (8-23) 03/14/25 15:59 BUN Cancelled 03/14/25 15:59 Creatinine 1.5 mg/dL (0.5-0.9) H 03/14/25 15:59 Creatinine Cancelled 03/14/25 15:59 GFR Calculation Cancelled 03/14/25 15:59 GFR Calculation Not Reportable 03/14/25 15:59 Glucose 116 mg/dL (65-115) H 03/14/25 15:59 Glucose Cancelled 03/14/25 15:59 Calculated Osmolality 293 mOsm/kg (285-295) 03/14/25 15:59 Calculated Osmolality Cancelled 03/14/25 15:59 Calcium 9.7 mg/dL (8.5-10.5) 03/14/25 15:59 Calcium Cancelled 03/14/25 15:59 Total Bilirubin 0.7 mg/dL (0.15-1.2) 03/14/25 15:59 Total Bilirubin Cancelled 03/14/25 15:59 AST 14 U/L (0-32) 03/14/25 15:59 AST Cancelled 03/14/25 15:59 ALT 6 U/L (0-33) 03/14/25 15:59 ALT Cancelled 03/14/25 15:59 Alkaline Phosphatase 91 U/L (35-105) 03/14/25 15:59 Alkaline Phosphatase Cancelled 03/14/25 15:59 Troponin T Baseline 16 ng/L (0-10) H 03/14/25 15:59 Troponin T Baseline Cancelled 03/14/25 15:59 Troponin T 120 Minute 15.69 ng/L (0-10) H 03/14/25 13:33 Delta Troponin T -0.31 ABS# (0-10) L 03/14/25 13:33 Total Protein 6.9 g/dL (6.6-8.7) 03/14/25 15:59 Total Protein Cancelled 03/14/25 15:59 Albumin 4.2 g/dL (3.5-5.2) 03/14/25 15:59 Albumin Cancelled 03/14/25 15:59 Globulin 2.7 g/dL (1.3-4.6) 03/14/25 15:59 Globulin Cancelled 03/14/25 15:59 TSH 2.12 uIU/mL (0.27-4.20) 03/14/25 15:59 TSH Cancelled 03/14/25 15:59 Blood Type O Positive 03/14/25 15:59 Rho(D) Type Rh positive 03/14/25 15:59 Antibody Screen Negative 03/14/25 15:59 All radiology interpretation(s) finalized by discharge ED provider radiology interpretation(s): Neck CT: Diffuse thickening of the false and true vocal cords and narrowing of the laryngeal inlet, 1.6 cm low-density left paraglottic nodule . Contiguous soft tissue thickening extends to the pyriformis fossa/hypopharynx. The findings are suspicious for neoplastic etiology until proven otherwise. ENT consult recommended. CT Chest/abd/pelvis: The presence of pulmonary emphysema on CT is an independent risk factor for lung cancer. In the absence of a history or active diagnosis of lung cancer, it is recommended that this patient with emphysema be evaluated for enrollment in a low dose CT lung cancer screening program. Discharge Plan Discharge Patient Disposition: Short Term Hosp w Plan Readm Clinical Impression: Laryngeal mass Condition: Stable Referrals: Maria Gomez APN [Primary Care Provider] - Print Language: Belizean Coding Level of Care Code ED Table Saw Operator for Judy Mcgrath
[2025-03-14] MEDS: pantoprazole 40 mg SDV 80 MG IVP (15:59)
--- NOTE | 2025-03-14 16:00 | ECG_ITS ---
[employer] Test Date: 2025-03-14 Pat Name: May Cummings Department: Room: Gender: Female Hand Binder Stripper: : 1950 Requested By: Jayden Verduzco Order Number: [id number] Reading MD: DORIS BARRAZA Measurements Intervals [place] Rate: 87 P: 119 [place]: 143 QRS: 143 QRSD: 81 T: 132 QT: 381 QTc: 459 Interpretive Statements SINUS RHYTHM POSSIBLE RIGHT VENTRICULAR HYPERTROPHY [SOME/ALL OF: PROMINENT R IN V1, LATE TRANSITION, RAD, PITO, SSS] NONSPECIFIC T-WAVE ABNORMALITY Compared to ECG 09/20/2024 10:01:21 T-wave abnormality now present Electronically Signed On 03-17-2025 21:00:13 CDT by DORIS BARRAZA [email or web address]
[2025-03-14] MEDS: methylPREDNISolone sod succ 125 mg/2 mL INJ IVP (16:09)
[2025-03-14 16:11] LABS: ABG PCO2 35.6 mmHg (35-45); ABG PH Result 7.49 (7.35-7.45); Alveolar-Arterial Oxygen Gradi 2.5 mmHg (5-10); Arterial Blood Gas Hematocrit 43.8 % (37-47); Blood Gas Allen Test Pos; Blood Gas Operator Identificat WALCI; Blood Gas Sample Site Radial, right; Blood Gas Sample Type Arterial; Carboxyhemoglobin 1.1 %THgb (0.4-20.1); HCO3 ABG 27.2 mmol/L (22-26); HGB O2 Sat 95.7 % (95-100); Ionized Calcium Level - ABG 1.2 mmol/L (1.1-1.4); Methemoglobin 0.9 % (0.4-1.5); Oxygen Device NC; Oxygen Saturation ABG 97.7; PO2 ABG 85.3 mmHg (80.0-100.0); Total Hemoglobin 14.3 g/dL (12-16)
[2025-03-14] MEDS: ipratropium-albuterol 3 mL Neb INHALATION (16:16)
[2025-03-14 16:20] LABS: Basophils % 0.1 %; Hematocrit 42.2 % (36-47); Lymphocytes # 3.6 10^3/uL (0.8-4.8); Lymphocytes % 22.4 %; Mean Corpuscular HGB Conc 32.2 g/dL (30-55); Mean Corpuscular Hemoglobin 25.9 pg (27-33); Mean Corpuscular Volume 80.4 fl (85-98); Mean Platelet Volume 9.6 fL (7.4-10.4); Monocytes # 1.1 10^3/uL (0.2-0.9); Monocytes % 6.9 %; Neutrophils # 11.13 10^3/uL (1.8-7.7); Neutrophils % 70.2 %; Nucleated Red Blood Cells % 0 %; Platelet Count 451 10^3/cmm (157-399); Red Blood Count 5.25 10^6/uL (3.85-5.65); Red Cell Distribution Width 19.9 % (12.1-15.1); White Blood Count 15.86 10^3/uL (3.29-11.43)
--- NOTE | 2025-03-14 16:40 | CTR_ITS ---
PROCEDURE INFORMATION: Exam: CT Neck With Contrast Exam date and time: 03/14/2025 5:49 PM Age: 75 years old Clinical indication: Dysphagia / difficulty swallowing TECHNIQUE: Imaging protocol: Computed tomography of the neck with contrast. Radiation optimization: All CT scans at this facility use at least one of these dose optimization techniques: automated exposure control; mA and/or kV adjustment per patient size (includes targeted exams where dose is matched to clinical indication); or iterative reconstruction. Contrast material: OMNIPAQUE 350; Contrast volume: 50 ml; Contrast route: INTRAVENOUS (IV); COMPARISON: CT cervical spin wo con* [id number] 09/20/2024 1:13 PM RADIATION DOSE METRICS: Total DLP (mGy-cm): 243.66 FINDINGS: Brain: Moderate area of hypodensity in the left posterior temporal lobe is partially imaged but suspicious for prior infarct corresponding to hypodensity on 11/02 CT. An aneurysm clip with susceptibility appears to be present in the tip of the basilar Salivary glands: Normal. Glands are normal in size. Pharynx: See Larynx finding. Larynx: Moderate heterogeneous thickening of the false vocal cords and true vocal cords with narrowing of the laryngeal inlet. Low-density nodule in the left paraglottic space measuring 1.6 x 1.4 x 0.7 cm (series 3, image 63). Additionally moderate ill-defined diffuse mucosal thickening noted of the hypopharynx/pyriformis sinus (series 6, image 41). Thyroid: Normal. No enlarged or calcified nodules. Trachea: Visualized trachea is unremarkable. Lungs: . Severe emphysema in the visualized lung apices. Moderate to severe cylindrical and varicoid bronchiectasis with superimposed scarring in the medial left upper lobe along the mediastinal border. Lymph nodes: Unremarkable. No lymphadenopathy. Vasculature: Moderate-extensive atherosclerotic noncalcific plaque of the aortic arch and origin of the great vessels with mild stenosis. Moderate calcific atherosclerotic plaque with mild stenosis of the left carotid bifurcation. [id number] ostial atherosclerotic noncalcific plaque and stenosis of the V1 segment of the left vertebral artery. Bones/joints: Moderate to advanced multilevel cervical uncovertebral spurring and facet arthropathy and anterior endplate osteophytosis. Moderate foraminal stenosis of the right side on C3-C4 and bilaterally at C4-C5 and C5-C6 as well as C6-C7 level with mild canal stenosis at these levels. Moderate disc space narrowing at C4-C5 and C5-C6. Soft tissues: No additional abnormality. CT/CT neck w con* [id number] IMPRESSION: Diffuse thickening of the false and true vocal cords and narrowing of the laryngeal inlet, 1.6 cm low-density left paraglottic nodule . Contiguous soft tissue thickening extends to the pyriformis fossa/hypopharynx. The findings are suspicious for neoplastic etiology until proven otherwise. ENT consult recommended.
[2025-03-14 17:15] LABS: INR 1.02 (0.8-1.2)
[2025-03-14 17:19] LABS: Troponin(5th) Baseline 16 ng/L (0-10)
[2025-03-14 17:29] LABS: Alanine Aminotransferase 6 U/L (0-33); Albumin Level 4.2 g/dL (3.5-5.2); Alkaline Phosphatase 91 U/L (35-105); Aspartate Amino Transferase 14 U/L (0-32); Blood Urea Nitrogen 17 mg/dL (8-23); Calcium 9.7 mg/dL (8.5-10.5); Carbon Dioxide 24 mmol/L (22-29); Chloride 99 mmol/L (98-107); Globulin 2.7 g/dL (1.3-4.6); Osmolality Calculated 293 mOsm/kg (285-295); Sodium 140 mmol/L (136-145); Thyroid Stimulating Hormone 2.12 uIU/mL (0.27-4.20); Total Bilirubin 0.7 mg/dL (0.15-1.2); Total Protein 6.9 g/dL (6.6-8.7)
--- NOTE | 2025-03-14 17:33 | CTR_ITS ---
PROCEDURE INFORMATION: Exam: CTA Chest With Contrast Exam date and time: 03/14/2025 5:43 PM Age: 75 years old Clinical indication: Abdominal pain; Generalized; On breathing; Additional info: Hemoptysis, abd pain TECHNIQUE: Imaging protocol: Computed tomographic angiography of the chest with contrast. Exam focused on the arteries. 3D rendering (Not supervised by radiologist): MIP and/or 3D reconstructed images were created by the technologist. Radiation optimization: All CT scans at this facility use at least one of these dose optimization techniques: automated exposure control; mA and/or kV adjustment per patient size (includes targeted exams where dose is matched to clinical indication); or iterative reconstruction. Contrast material: OMNIPAQUE 350; Contrast volume: 85 ml; Contrast route: INTRAVENOUS (IV); COMPARISON: CT angio chest PE protcl [id number] 09/05/2024 11:31 AM RADIATION DOSE METRICS: Total DLP (mGy-cm): 888.28 FINDINGS: Pulmonary arteries: Normal. No pulmonary emboli. Aorta: Unremarkable. No aortic aneurysm. No aortic dissection. Lungs: Emphysema. Posttreatment changes including fibrosis, atelectasis and bronchiectasis stasis within medial left upper lobe, not significantly changed since stent 172. No new pulmonary mass identified. Pleural spaces: Unremarkable. No pneumothorax. No pleural effusion. Heart: Unremarkable. No cardiomegaly. No pericardial effusion. Lymph nodes: Unremarkable. No enlarged lymph nodes. Diaphragm: Small hiatal hernia. Intraperitoneal space: Please refer to dedicated CT abdomen and pelvis study for abdominopelvic findings. Bones/joints: Unremarkable. No acute fracture. Soft tissues: Unremarkable. COMMENTS: The presence of pulmonary emphysema on CT is an independent risk factor for lung cancer. In the absence of a history or active diagnosis of lung cancer, it is recommended that this patient with emphysema be evaluated for enrollment in a low dose CT lung cancer screening program. PROCEDURE INFORMATION: Exam: CT Abdomen And Pelvis With Contrast Exam date and time: 03/14/2025 5:43 PM Age: 75 years old Clinical indication: Abdominal pain; Generalized; On breathing; Additional info: Hemoptysis, abd pain TECHNIQUE: Imaging protocol: Computed tomography of the abdomen and pelvis with contrast. Radiation optimization: All CT scans at this facility use at least one of these dose optimization techniques: automated exposure control; mA and/or kV adjustment per patient size (includes targeted exams where dose is matched to clinical indication); or iterative reconstruction. Contrast material: OMNIPAQUE 350; Contrast volume: 85 ml; Contrast route: INTRAVENOUS (IV); COMPARISON: CT chest abdpel [id number] 09/19/2024 9:47 AM RADIATION DOSE METRICS: Total DLP (mGy-cm): 888.28 FINDINGS: Lungs: Unremarkable. Diaphragm: Small hiatal hernia. Liver: Normal. No mass. Subcentimeter hypodensity, incompletely characterized but likely represents simple hepatic cyst. Gallbladder and biliary ducts: Normal. No calcified stones. No ductal dilation. Pancreas: Diffuse fatty replacement of the pancreas. Spleen: Spleen is surgically absent. Adrenal glands: Normal. No mass. Kidneys and ureters: Normal. No hydronephrosis. Stomach and bowel: No focal bowel dilatation. Appendix: No evidence of appendicitis. Intraperitoneal space: Unremarkable. No free air. No significant fluid collection. Vasculature: Mild atherosclerosis of the aorta. Lymph nodes: Unremarkable. No enlarged lymph nodes. Urinary bladder: Unremarkable as visualized. Reproductive: Unremarkable as visualized. Bones/joints: Advanced degenerative changes within visualized lumbar spine. No acute osseous abnormality. Soft tissues: Ventral abdominal wall hernias containing fat only. CT/CT angio chest w abd pel w con IMPRESSION: 1. No acute intrathoracic findings. 2. Emphysema and stable posttreatment changes within medial left upper lobe. IMPRESSION: 1. No acute abdominopelvic findings. 2. Chronic findings as described above.
[2025-03-14 17:38] LABS: Anion Gap 20.5 (5-19); Creatinine Clr Calc Pharmacy 28.5178; Glucose 116 mg/dL (65-115); Potassium 3.5 mmol/L (3.5-5.1)
[2025-03-14] MEDS: iohexol 350 mg/mL 500 mL Btl (per mL) IV ×2 (17:49→17:50)
[2025-03-14 17:59] LABS: Troponin 5 2HR 15.69 ng/L (0-10)
[2025-03-14 18:02] LABS: Troponin 5 2HR Delta -0.31 ABS# (0-10)
--- NOTE | 2025-03-14 19:42 | ECG_ITS ---
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
[2025-03-15] VITALS: BP 160/116; PULSE 76; RESP 20; O2SAT 92
[2025-03-15] MEDS: morphine 4 mg/mL SDV 1 mL 2 MG IVP (00:22)
[2025-03-15] MEDS: ondansetron 2 mg/ML SDV 2 mL 4 MG IVP (00:22)
[2025-03-15 00:38] VITALS: BP 179/119; PULSE 89; O2SAT 98
== END 2025-03-15 00:39 | disposition short-term general hospital, planned readmission (82) ==
PROVIDERS: Family Medicine; Emergency Provider General Practice; PCP Nurse Practitioner Family
DX: J38.7 Other diseases of larynx (principal); Z85.118 Personal history of other malignant neoplasm of bronchus and lung; J44.9 Chronic obstructive pulmonary disease, unspecified; E78.5 Hyperlipidemia, unspecified; I10 Essential (primary) hypertension; Z87.891 Personal history of nicotine dependence
CPT/HCPCS: 36415; 36600; 70491; 71045; 71275; 74177; 80051; 80053; 82330; 82805; 84443; 84484; 85025; 85610; 86850; 86900; 93005; 94640; 96374; 96375; 99285; J2270; J2405; J2470; J2919; J9999

== ENCOUNTER 2025-03-24 16:01 | Emergency (ER) | payer MEDICARE, SELFPAY ==
[2025-03-24 16:02] VITALS: BP 109/68; PULSE 84; TEMP 37.2; O2SAT 95; BMI 26.8
[2025-03-24 18:04] LABS: Basophils # 0.1 10^3/uL (0.0-0.1); Basophils % 0.3 %; Eosinophils # 0.2 10^3/uL (0.0-0.8); Eosinophils % 1.2 %; Hematocrit 36.2 % (36-47); Lymphocytes # 3.4 10^3/uL (0.8-4.8); Lymphocytes % 23.6 %; Mean Corpuscular HGB Conc 30.9 g/dL (30-55); Mean Corpuscular Hemoglobin 25.8 pg (27-33); Mean Corpuscular Volume 83.4 fl (85-98); Mean Platelet Volume 9.4 fL (7.4-10.4); Monocytes # 1.4 10^3/uL (0.2-0.9); Monocytes % 9.6 %; Neutrophils % 64.7 %; Nucleated Red Blood Cells % 0 %; Platelet Count 357 10^3/cmm (157-399); Red Blood Count 4.34 10^6/uL (3.85-5.65); Red Cell Distribution Width 20.3 % (12.1-15.1); White Blood Count 14.56 10^3/uL (3.29-11.43)
[2025-03-24 18:21] LABS: Alanine Aminotransferase 7 U/L (0-33); Albumin Level 3.4 g/dL (3.5-5.2); Alkaline Phosphatase 72 U/L (35-105); Anion Gap 15.6 (5-19); Aspartate Amino Transferase 10 U/L (0-32); Blood Urea Nitrogen 9 mg/dL (8-23); Calcium 8.8 mg/dL (8.5-10.5); Carbon Dioxide 23 mmol/L (22-29); Chloride 103 mmol/L (98-107); Creatinine Clr Calc Pharmacy 47.8485; Globulin 2.6 g/dL (1.3-4.6); Glucose 97 mg/dL (65-115); Lipase 13 U/L (13-60); Osmolality Calculated 285 mOsm/kg (285-295); Potassium 3.6 mmol/L (3.5-5.1); Sodium 138 mmol/L (136-145); Total Bilirubin 0.5 mg/dL (0.15-1.2)
[2025-03-24 19:30] VITALS: BP 151/77; PULSE 81; RESP 16; O2SAT 93
[2025-03-24 19:44] LABS: Bilirubin Urine Negative (Negative); Blood Urine Negative (Negative); Glucose Urine UA Negative (Normal); Ketones Urine Trace (Negative); Leukocyte Esterase Urine 1+ (Negative); Nitrate Urine Negative (Negative); Protein Urine 1+ (Negative); Specific Gravity, Urine 1.022 (1.005-1.030); Urine Appearance Clear (CLEAR); Urine Color Dark Yellow (Yellow); pH Urine 7.5 (5-7)
[2025-03-24 19:50] LABS: Add Urine Microscopic? YES; Bacteria Urine 1+ /hpf; Hyaline Casts Urine 0.81 /lpf; RBC Urine 0-2 /hpf (0-2)
[2025-03-24 20:00] VITALS: BP 122/74; PULSE 77; RESP 16; O2SAT 100
--- NOTE | 2025-03-24 20:15 | CTR_ITS ---
PROCEDURE INFORMATION: Exam: CT Abdomen And Pelvis With Contrast Exam date and time: 03/24/2025 9:24 PM Age: 75 years old Clinical indication: Pain and abnormal findings; Abnormal radiologic finding of the abdomen; Radiologic exam and body structure: CT abd/pel; Abdominal pain; Localized; Right lower quadrant (rlq); Prior surgery; Surgery date: 6+ months; Surgery type: Splenectomy. Csection; Patient C/O rlq pain. States she had CT performed at an out of state er earlier today and was told that she had a suspected cecal mass. ; Additional info: Cecal mass seen on outpatient CT, not there 1 month ago TECHNIQUE: Imaging protocol: Computed tomography of the abdomen and pelvis with contrast. Radiation optimization: All CT scans at this facility use at least one of these dose optimization techniques: automated exposure control; mA and/or kV adjustment per patient size (includes targeted exams where dose is matched to clinical indication); or iterative reconstruction. Contrast material: OMNI 350; Contrast volume: 100 ml; Contrast route: INTRAVENOUS (IV); Other contrast: Oral, OMNI 350, 25ML CONTRAST WITH 425ML WATER; COMPARISON: [place] [id number] 09/19/2024 9:47 AM RADIATION DOSE METRICS: Total DLP (mGy-cm): 563.36 FINDINGS: Lungs: Lung bases are clear. No pleural effusion. Liver: There is an 8 mm diameter rounded hypodense nodule within the posterior segment of the right hepatic lobe. No other liver nodule noted. Gallbladder and biliary ducts: Normal. No calcified stones. No ductal dilation. Pancreas: Normal. No ductal dilation. Spleen: Normal. No splenomegaly. Adrenal glands: Normal. No mass. Kidneys and ureters: Normal. No hydronephrosis. Stomach and bowel: There is poorly defined infiltrating soft tissue mass effect involving the wall of the cecum. There is surrounding mesenteric edema. A few diverticula are noted here. No bowel distension noted. Appendix: No evidence of appendicitis. Intraperitoneal space: See Stomach and bowel finding. Vasculature: Unremarkable. No abdominal aortic aneurysm. Lymph nodes: Unremarkable. No enlarged lymph nodes. Urinary bladder: Unremarkable as visualized. Reproductive: Unremarkable as visualized. Bones/joints: Unremarkable. No acute fracture. Soft tissues: There is a small periumbilical hernia containing mesenteric fat. CT/CT abdomen pelvis w con* [id number] IMPRESSION: 1. Infiltrating mass effect of the cecum suspicious for colon neoplasm 2. Tiny hypodense nodule involving the liver suggests the possibility of metastatic disease 3. Periumbilical hernia
--- NOTE | 2025-03-24 20:16 | ED_ITS ---
HPI - Abdominal Pain 2 General: Chief Complaint: Abdominal Pain Stated Complaint: abnormal scan from [facility] Time Seen by Provider: 03/24/25 18:55 History of Present Illness: 75-year-old female presents with acute r ight lower quadrant abdominal pain that began at 4:00 AM today. Patient reports severe pain that woke her up screaming, associated with difficulty with bowel movements. She has had decreased appetite and vomiting for over a month, and reports a recent hospitalization at [place] with transfer to [place] approximately one week ago. Patient was evaluated today at [facility] where CT imaging revealed a concerning cecal mass. Due to these findings, she was directed to present to our ED for surgical evaluation. MD elicited complaint: abdominal pain Related Data Home Medications ?Medication ?Instructions ?Recorded ?Confirmed atenolol 50 mg tablet 50 mg PO DAILY@03/08/21 0 03/14/25 clopidogrel 75 mg tablet 75 mg PO DAILY@03/08/21 0 03/14/25 Held on 10/28/24. Instructions: Resume on 10/31/24. pantoprazole 40 mg tablet,delayed 40 mg PO BID 1 03/14/25 release (Protonix) escitalopram oxalate 20 mg tablet 20 mg PO DAILY 09/0503/14/25 apixaban 5 mg tablet (Eliquis) 5 mg PO BID 10/25/24 Held on 10/28/24. Instructions: Resume on 10/31/24. Previous Rx's ?Medication ?Instructions ?Recorded sumatriptan succinate 100 mg tablet See Rx Instruction s .Route 04/10/23 .COMPLEX #9 tabs fluticasone fur. 100 mcg-umeclid 1 inh inhalation Q24H #60 ea 07/11/24 62.5 mcg-vilant 25 mcg inhalat.powder (Trelegy Ellipta) Allergies Allergy/AdvReac Type Severity Reaction Status Date / Time No Known Allergies Allergy Verified 03/24/25 16:08 [facility] ED 2 PFSH: Medical History Chronic migraine without aura, intractable, with status migrainosus Non-small cell lung cancer Chronic migraine Lumbar spinal stenosis Degenerative joint disease of spine COPD (chronic obstructive pulmonary disease) Hyperthyroidism Continue on home methimazole Basilar artery aneurysm Dyslipidemia Hypertension Anxiety disorder Insomnia Plantar fasciitis Statin intolerance Gastritis Surgical History History of esophagogastroduodenoscopy (EGD) 2019 -gastritis Status post colonoscopy 2018: Normal repeat in 10 years S/P coil embolization of cerebral aneurysm 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, stent subsequently removed H/O section H/O splenectomy 2007 Family History Mother Diabetes Father Heart disease Grandmother Stroke Other Suicide Denies family history of CAD (coronary artery disease) Clotting disorder Dementia Hyperlipidemia Psychiatric illness Chronic kidney disease (CKD) Anesthesia complication Bleeding disorder Lung disease Cancer Hypertension Social History Smoking and tobacco/nicotine status: former use of tobacco/nicotine Quit status (tobacco/nicotine): has quit using Year quit tobacco: 2016 [id number] Second hand smoke exposure: No Alcohol intake: former Substance/Drug Use: current Substance/Drug use frequency: few times a week Lives independently: Yes Household members: spouse Marital status: service: No Current occupational status: retired Pets and animals: Yes Do you think of yourself as: Straight/Heterosexual Current gender identity: Female Physical Exam 2 Const: COMMON NORMALS: no acute distress, average body habitus, alert and well nourished GENERAL APPEARANCE: cooperative ORIENTATION/CONSCIOUSNESS: Yes awake OTHER: frail, chronically ill appearing HENMT: COMMON NORMALS: normocephalic and atraumatic HEAD & SCALP: n ormocephalic and atraumatic Eye: COMMON NORMALS: conjunctivae normal CONJUNCTIVA: Yes conjunctivae normal Neck/C-Spine: GENERAL: Yes normal visual inspection Resp: COMMON NORMALS: normal respiratory effort, No retractions and No use of accessory muscles Cardio: COMMON NORMALS: regular rhythm and Peripheral pulses 2+ throughout RHYTHM: regular rhythm PERIPHERAL PULSES: Peripheral pulses 2+ throughout GI: COMMON NORMALS: Soft to palpation PALPATION: Yes Soft to palpation O THER: diffuse lower abdominal tenderness, mild guarding in RLQ Extremity: COMMON NORMALS: full ROM and no pedal edema Neuro: COMMON NORMALS: no focal motor deficits SENSORIUM/ORIENTATION: Yes alert Skin: COMMON NORMALS: no rashes or lesions noted GENERAL SKIN EXAM: no rashes or lesions noted Course 2 Vital Signs: Vital signs: Vital Signs Temperature 98.9 F 03/24/25 16:02 Pulse Rate 79 03/24/25 22:34 Respiratory Rate 16 03/24/25 22:34 Blood Pressure 139/78 03/24/25 22:34 Pulse Oximetry 93 03/24/25 22:34 Oxygen Delivery Me thod Room Air 03/24/25 22:34 MDM - Abdominal Pain Medical Decision Making Review of Systems: Constitutional: Reports decreased appetite Gastrointestinal: Positive for abdominal pain, nausea, vomiting, and changes in bowel habits All other systems reviewed and negative Past Medical History: Lung cancer - in remission for 2-3 years, treated with radiation and chemotherapy Stroke with residual dysarthria Recent hospitalization at [facility] with transfer to [place] (1 week ago) Past Surgical History: D&C Physical Exam: General: Patient with baseline dysarthria Abdomen: Soft, mild distension, diffuse tenderness most focal in right lower quadrant with mild guarding Imaging and Other Relevant Results: CT Abdomen/Pelvis (from [facility] today): - Cecal mass measuring 4.3 x 3.2 cm and 4.3 x 1.4 cm - Mass concerning for tumor with surrounding inflammation - Luminal narrowing present but no bowel obstruction - No definite perforation identified - Incidental finding of ventral hernias with mesenteric fat in at least two areas Medical Decision Making: Summary Statement: 75-year-old female with acute on chronic right lower quadrant abdominal pain found to have concerning cecal mass on CT imaging, requiring urgent surgical evaluation. Interestingly, the patient had a CT scan here at this facility of her chest abdomen and pelvis just a couple of weeks ago which did not show any abdominal mass or lesions. This certainly lowers the suspicion for a malignant process. I spoke with general surgery, Dr. Raymond who Requested repeat CT scan of the abdomen pelvis with p.o. and IV contrast to further evaluate. Given this information I will go ahead and add broad-spectrum antibiotics with Zosyn for the time being ED Course: Patient received 1L normal saline, morphine 4mg IV, and Zofran 4mg IV. General surgery consulted for concerning cecal mass. CT Abdomen/pelvis with IV and PO contrast. IV Zosyn given. Assessment and Plan: 1. Cecal Mass with Right Lower Quadrant Pain: - Urgent surgical consultation obtained - Continue NPO status - IV fluid hydration - Pain control with IV morphine - Anticipate likely need for surgical intervention 2. Nausea/Vomiting: - Antiemetic therapy with Zofran - Monitor oral intake and output 3. Disposition: - Pending surgical evaluation - Anticipate admission The patient's repeat CT scan abdomen pelvis with p.o. and IV contrast here does show concern for cecal mass with infiltration of mesentery with near obstruction. Spoke with the general surgeon here again who recommended transfer to higher level of care with colorectal surgery capability and gastroenterology capability given this infiltrating lesion. [facility] was contacted and patient has been accepted as a transfer to the emergency department there by Dr. Carrillo. Medical Records I reviewed the patient's medical records. Lab Data I reviewed the patient's lab results. 03/24/25 17:59 03/24/25 17:59 Labs/Radiology: Radiology Impressions Abdomen/Pelvis CT 03/24/25 20:15 IMPRESSION: 1. Infiltrating mass effect of the cecum suspicious for colon neoplasm 2. Tiny hypodense nodule involving the liver suggests the possibility of metastatic disease 3. Periumbilical hernia Laboratory Results WBC 14.56 10^3/uL (3.29-11.43) H 03/24/25 17:59 RBC 4.34 10^6/uL (3.85-5.65) 03/24/25 17:59 Hgb 11.20 g/dL (11.27-16.99) L 03/24/25 17:59 Hct 36.2 % (36-47) 03/24/25 17:59 MCV 83.4 fl (85-98) L 03/24/25 17:59 MCH 25.8 pg (27-33) L 03/24/25 17:59 MCHC 30.9 g/dL (30-55) 03/24/25 17:59 RDW 20.3 % (12.1-15.1) H 03/24/25 17:59 Plt Count 357 10^3/cmm (157-399) 03/24/25 17:59 MPV 9.4 fL (7.4-10.4) 03/24/25 17:59 Neut % (Auto) 64.7 % 03/24/25 17:59 Lymph % (Auto) 23.6 % 03/24/25 17:59 [place] % (Auto) 9.6 % 03/24/25 17:59 Eos % (Auto) 1.2 % 03/24/25 17:59 Baso % (Auto) 0.3 % 03/24/25 17:59 Neut # (Auto) 9.40 10^3/uL (1.8-7.7) H 03/24/25 17:59 Lymph # (Auto) 3.4 10^3/uL (0.8-4.8) 03/24/25 17:59 [place] # (Auto) 1.4 10^3/uL (0.2-0.9) H 03/24/25 17:59 Eos # (Auto) 0.2 10^3/uL (0.0-0.8) 03/24/25 17:59 Baso # (Auto) 0.1 10^3/uL (0.0-0.1) 03/24/25 17:59 Nucleated RBC % (auto) 0 % 03/24/25 17:59 Nucleated RBCs # 0.0 /100WBC 03/24/25 17:59 Sodium 138 mmol/L (136-145) 03/24/25 17:59 Potassium 3.6 mmol/L (3.5-5.1) 03/24/25 17:59 Chloride 103 mmol/L (98-107) 03/24/25 17:59 Carbon Dioxide 23 mmol/L (22-29) 03/24/25 17:59 Anion Gap 15.6 (5-19) 03/24/25 17:59 BUN 9 mg/dL (8-23) 03/24/25 17:59 Creatinine 0.9 mg/dL (0.5-0.9) 03/24/25 17:59 GFR Calculation Not Reportable 03/24/25 17:59 Glucose 97 mg/dL (65-115) 03/24/25 17:59 Calculated Osmolality 285 mOsm/kg (285-295) 03/24/25 17:59 Lactic Acid 1.1 mmol/L (0.5-2.2) 03/24/25 21:06 Calcium 8.8 mg/dL (8.5-10.5) 03/24/25 17:59 Total Bilirubin 0.5 mg/dL (0.15-1.2) 03/24/25 17:59 AST 10 U/L (0-32) 03/24/25 17:59 ALT 7 U/L (0-33) 03/24/25 17:59 Alkaline Phosphatase 72 U/L (35-105) 03/24/25 17:59 Total Protein 6.0 g/dL (6.6-8.7) L 03/24/25 17:59 Albumin 3.4 g/dL (3.5-5.2) L 03/24/25 17:59 Globulin 2.6 g/dL (1.3-4.6) 03/24/25 17:59 Lipase 13 U/L (13-60) 03/24/25 17:59 Urine Color Dark yellow (Yellow) A 03/24/25 19:23 Urine Appearance Clear (CLEAR) 03/24/25 19:23 Urine pH 7.5 (5-7) 03/24/25 19:23 Ur Specific [place] 1.022 (1.005-1.030) 03/24/25 19:23 Urine Protein 1+ (Negative) A 03/24/25 19:23 Urine Glucose (UA) Negative (Normal) 03/24/25 19:23 Urine Ketones Trace (Negative) 03/24/25 19:23 Urine Blood Negative (Negative) 03/24/25 19:23 Urine Nitrate Negative (Negative) 03/24/25 19:23 Urine Bilirubin Negative (Negative) 03/24/25 19:23 Urine Urobilinogen 1.0 mg/dL (Negative) 03/24/25 19:23 Ur Leukocyte Esterase 1+ (Negative) A 03/24/25 19:23 Urine RBC 0-2 /hpf (0-2) 03/24/25 19:23 Urine WBC 6-10 /hpf (0-5) 03/24/25 19:23 Ur Squamous Epith Cells 11-20 /hpf (0-5) H 03/24/25 19:23 Amorphous Sediment Not Reportable 03/24/25 19:23 Urine Bacteria 1+ /hpf (NONE) H 03/24/25 19:23 Hyaline Casts 0.81 /lpf 03/24/25 19:23 All radiology interpretation(s) finalized by discharge Discharge Plan Discharge Patient Disposition: Xfer Short-Term Hosp Clinical Impression: Cecum mass, Abdominal pain Condition: Stable Referrals: Maria Gomez APN [Primary Care Provider, Family Practice] Patient Instructions: Abdominal Pain (ED) Print Language: Nigerien Coding Level of Care Code ED Retail Selling Floor Leader for Judy Mcgrath
[2025-03-24 20:46] VITALS: BP 134/81; PULSE 76; RESP 16; O2SAT 91
[2025-03-24] MEDS: iohexol 350 mg/mL 500 mL Btl (per mL) IV (21:26)
[2025-03-24] MEDS: iohexol 350 mg/mL 500 mL Btl (per mL) PO (21:26)
[2025-03-24 21:41] LABS: Lactic Sepsis W/Reflex 1.1 mmol/L (0.5-2.2)
[2025-03-24 21:46] VITALS: BP 108/79; PULSE 79; RESP 14; O2SAT 97
[2025-03-24] MEDS: piperacillin-tazobactam 4.5 GM in sodium chloride 0.9% (plus) 50 ML IV (21:53)
[2025-03-24] MEDS: sodium chloride 0.9% 1,000 ML 999 ML IV (21:54)
[2025-03-24 22:34] VITALS: BP 139/78; PULSE 79; RESP 16; O2SAT 93
[2025-03-25 00:06] VITALS: BP 126/85; PULSE 71; RESP 16; O2SAT 93
== END 2025-03-25 00:07 | disposition short-term general hospital (02) ==
PROVIDERS: Physician Assistant; Emergency Provider Student in an Organized Health Care Education/Training Program; PCP Nurse Practitioner Family
DX: R10.31 Right lower quadrant pain (principal); K63.89 Other specified diseases of intestine; Z87.891 Personal history of nicotine dependence; J44.9 Chronic obstructive pulmonary disease, unspecified; E78.5 Hyperlipidemia, unspecified; Z85.118 Personal history of other malignant neoplasm of bronchus and lung
CPT/HCPCS: 36415; 74177; 80053; 81001; 83605; 83690; 85025; 87040; 96365; 99285; J2543; J7030

== ENCOUNTER 2025-08-26 13:19 | Emergency (ER) | payer MEDICARE, SELFPAY ==
--- OUTSIDE RECORDS SUMMARY | 2025-08-26 13:25 | XMS_ITS ---
Author Organization [facility] Address [address] [place]: Epic Prelude ADT RADHA GILLIS [id number] Care Team Providers Care Well Service Floorperson Name Role Phone Karen Les S Primary Care Provider [phone] Active Problems Problem Noted Date Diagnosed Date CALVIN (acute kidney injury) 03/17/2025 Other dysphagia 03/16/2025 Mixed simple and mucopurulent chronic bronchitis 03/15/2025 Chronic hypoxic respiratory failure 03/15/2025 Chronic gastritis 03/15/2025 Hyperthyroidism 03/15/2025 Non-small cell cancer of left lung 03/15/2025 Lumbar spinal stenosis 03/15/2025 Chronic migraine without aura 03/15/2025 Coffee ground emesis 03/15/2025 Hemoptysis 03/15/2025 Chronic anticoagulation 03/15/2025 Leukocytosis (leucocytosis) 03/15/2025 Acute upper GI bleed 03/15/2025 Laboratory test 03/15/2025 Epigastric abdominal pain 03/15/2025 Nausea 12/28/2017 Headache 12/28/2017 Cigarette dependence 04/01/2017 Former tobacco use 04/01/2017 Essential hypertension 03/31/2017 Cerebral aneurysm 03/01/2017 Current Treatment and Therapy Plans No current plan information found. Past Treatment and Therapy Plans No past plan information found. Lifetime Dose Tracking * Chemical Lifetime Dose Automatic Entry Manual Entr y Effective Dose 17.55 mSv 13.45 mSv 4.1 mSv Total DLP 2,106.11 DLP 693.11 DLP 1,413 DLP CTDIvol Max 194.42 mGy 22.92 mGy 171.5 mGy CTDIvol Min 48.2 mGy 0 mGy 48.2 mGy
--- OUTSIDE RECORDS SUMMARY | 2025-08-26 13:25 | XMS_ITS | Clinical Summary ---
Author Organization [facility] Address [address] [place]: Epic Prelude ADT RADHA GILLIS [id number] Care Team Providers Care Batch Attendant Name Role Phone Oscar Jonesremi Toussaint Primary Care Provider [phone] Allergies Active Allergy Reactions Criticality Noted Date Comments Iodixanol Nausea and Vomiting,Headache High 018 Medications methIMAzole (TAPAZOLE) 10 mg tabletIndicatio ns:Pre-procedur e lab exam Take by mouth daily. 7 Active atenoloL (TENORMIN) 50 mg tabletIndicatio ns:Pre-procedur e lab exam Take 50 mg by mouth daily. 7 Active SUMAtriptan (IMITREX) 25 mg tabletIndicatio ns:Pre-procedur e lab exam Take 50 mg by mouth every 2 hours as needed for Other (See Comment) may repeat in 2 hours; max dose 200mg in 24 hours . 7 Active Additional Information Patient taking differently: 100 mgOral EVERY 2 HOURS PRN, Reported on 03/15/2025 apixaban (Eliquis) 5 mg tablet Take 5 mg by mouth 2 times daily. PT DOESN'T KNOW WHY THEY TAKE THIS Active oxyCODONE (ROXICODONE) 5 mg tablet Take 5 mg by mouth every 4 hours as needed for Pain. Active pantoprazole (PROTONIX) 40 mg Tablet, Delayed Release (E.C.) Take 40 mg by mouth daily. Active clopidogreL (PLAVIX) 75 mg Tablet Take 75 mg by mouth daily. Active sucralfate (CARAFATE) 1 gram tablet Take 1 Gram by mouth 4 times daily before meals and at bedtime. Active Active Problems Problem Noted Date Diagnosed Date [...] 04/01/2017 Essential hypertension 03/31/2017 Cerebral aneurysm 03/01/2017 Encounters Date Type Department Care Team Description 08/05/2025 External Device Data [facility] ABSTRACTION Provider, Abstract 07/01/2025 External Device Data [facility] ABSTRACTION Provider, Abstract 07/01/2025 External Device Data [facility] ABSTRACTION Provider, Abstract 06/04/2025 External Device Data [facility] ABSTRACTION Provider, Abstract 06/04/2025 External Device Data [facility] ABSTRACTION Provider, Abstract from Last 3 Months Immunizations Immunization Administration Dates Next Due (PNEUMOVAX 23)(50 YRS UP) PN EUMOCOCCAL POLYSACCHARIDE (PPV23) 0.5 ML, IM 09/07/2008 HIB, Unspecified Formulation 09/07/2008 Meningococcal Polysaccharide Vaccine SQ 09/07/20 08 Social History Tobacco Use Types Packs/Day Years Used Date Smoking Tobacco: Former Cigarettes Q uit: 03/29/2017 Smokeless Tobacco: Never Comments:Quit smoking: has q uit on and off Alcohol Use Standard Drinks/Week Comments No 0 (1 standard drink = 0.6 oz pur e alcohol) Feeling Safe Answer Date Recorded Are you in a relationship wi th someone who hurts you emotionally and/or physically? 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 Gender Identity Not on file Sexual Orientation Not on file Last Filed Vital Signs Vital Sign Reading Time Taken Comments Blood Pressure 123/97 03/20/2025 11:35 AM CDT Pulse 66 03/20/2025 11:35 AM CDT Temperature 36.4 C (97.5 F) 03/20/2025 11:35 AM CDT Respiratory Rate 18 03/20/2025 11:35 AM CDT Oxygen Saturation 94% 03/20/2025 11:35 AM CDT Inhaled Oxygen Concentration - - Weight 95.3 kg (210 lb 1.6 oz) 03/19/2025 4:30 A M CDT Height 162.6 cm (5' 4 ) 03/16/2025 6:00 PM CDT Body Mass Index 36.06 03/16/2025 6:00 PM CDT Plan of Treatment Health Maintenance Due Date Last Done Comments DTAP/TDAP/TD VACCINES (1 - Tdap) 01/30/1971 BREAST CANCER SCREENING 1992 COLORECTAL SCREENING 01/30/1997 Colorectal Cancer Screening 01/30/1997 FIT-DNA Q 3 years 01/30/1997 FIT/FOBT Q 1 year 01/30/1997 Flex Sig/CT Colonography Q 5 years 01/30/1997 ZOSTER VACCINE (1 of 2) 01/30/2002 PNEUMOCOCCAL VACCINE 50+ YEARS (2 of 2 - PCV) 09/07/20 09 09/07/2008 RSV VACCINE (60+ or ) (1 - Risk 60-74 years 1-dose series) 2012 OSTEOPOROSIS SCREENING 01/30/2017 INFLUENZA VACCINE (#1) 2025 Medical Devices Implanted Type Area Paunch Trimmer Device Identifier Shelf Expiration Date Model / Serial / Lot [employer] 360 Susanne Coil-04/01/2017 Implanted:Qty: 1 on 04/01/2017 by Zainab Molina MD Coil Brain [employer] 10/19/2019 / / [id number] [employer] 360 Susanne Coil-04/01/2017 Implanted:Qty: 1 on 04/01/2017 by Zainab Molina MD Coil [employer] 11/19/2019 / / [id number] [employer] 360 Susanne Coil-04/01/2017 Implanted:Qty: 1 on 04/01/2017 by Zainab Molina MD Coil Brain [employer] 12/20/2019 / / [id number] [employer] 360 Susanne Coil-04/01/2017 Implanted:Qty: 1 on 04/01/2017 by Zainab Molina MD Coil Brain [employer] 10/19/2019 / / [id number] Target 360 Soft Coil-04/01/2017 Implanted:Qty: 1 on 04/01/2017 by Zainab Molina MD Coil Brain [employer] 01/18/2020 / / [id number] Target 360 Ultra Coil-04/01/2017 Implanted:Qty: 1 on 04/01/2017 by Zainab Molina MD Coil Brain [employer] 12/20/2019 / / [id number] Microplex Hypersoft 3d Coil-04/01/2017 Implanted:Qty: 1 on 04/01/2017 by Zainab Molina MD Coil Brain [employer] MICROVENTION 12/19/2020 / / [id number] 6fr Angioseal Evolution Other Right: Groin [employer]- VASCUTEK 08/19/2018 [id number] / / [id number] Description:6fr angioseal ev olution Angio-Seal Vip Closure Device [id number]/11/20 17 Implanted:Qty: 1 on 03/30/2017 by Zainab Molina MD Other Right: Groin [employer] 12/20/2017 [id number] / / [id number] Description:rt common femora l [employer] Stent- 7 Implanted:Qty: 1 on 04/01/2017 by Zainab Molina MD Stent Brain 12/17/2018 / / [id number] Insurance [employer] MEDICARE HMO Advance Directives For more information, please contact: [phone] * Full Code (Latest Code Status on File) Date Activated Date Inactivated Comments 03/15/2025 4:09 AM 03/20/2025 5:13 PM Care Teams Batch Attendant Relationship Specialty Start Date End Date Les Jones DO [address] [place] [address] PCP - General Specialist 03/30/17
--- OUTSIDE RECORDS SUMMARY | 2025-08-26 13:25 | XMS_ITS | Clinical Summary ---
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
--- OUTSIDE RECORDS SUMMARY | 2025-08-26 13:25 | XMS_ITS | Encounter Summary ---
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 least partially related to atelectasis. No pleural effusion or pneumothorax.Cardiomediastinal contours are unremarkable. - Dictated By: Cristobal Alicia M.D. Electronically Signed By: Cristobal Alicia M.D. Date Signed: 09/01/08 us Conrad Richmond MD DIAGNOSTIC IMAGING ORDERABL ES Final Result * (ABNORMAL) POC ISTAT EG 7+ (09/01/2008 4:54 PM CDT) O2 SATURATION 95 95 - 98 % [facility] SPECIMEN TYPE Arterial [facility] Comment: Test Performed By [id number] Tidal volume: 550 PEEP: 05 Rate: 14 Pulse OX: 98 Hemoglobin calculated from Hematocrit result PCO2 TEMP CORRECT 39 35 - 45 mmHg [facility] POTASSIUM 4.1 3.5 - 4.9 mEq/L [facility] HEMOGLOBIN POC 12.2 +/-3 g/dL 12.0 - 16.0 g/dL [facility] PH TEMP CORRECT 7.35 7.35 - 7.45 Unit [facility] TCO2 (CALC) POC 23 23 - 27 mmol/l [facility] HCO3 (CALC) POC 21.6(L) 22.0 - 26.0 mmol/l [facility] FIO2 60 [facility] HEMATOCRIT ABG 36(L) 38 - 51 % [facility] PO2 77(L) 80 - 105 mmHg [facility] CALCIUM IONIZED 1.04(L) 1.12 - 1.32 mmol/l [facility] PCO2 POC 39 35 - 45 mmHg [facility] BASE EXCESS -4(L) -2 - 3 mmol/l [facility] SODIUM 139 138 - 146 mEq/L [facility] PH 7.35 7.35 - 7.45 Unit [facility] PO2 TEMP CORRECT 77(L) 80 - 105 mmHg [facility] Arterial blood specimen (specimen) 09/01/2008 4:54 PM CDT 09/01/2008 6:11 PM CDT us Conrad Richmond MD POINT OF CARE TESTING COM F inal Result INTERFACE SYSTEM Refer to clinic/hospital department [facility] CLIA# [id number] [address] [place] [address] * PATHOLOGY (09/01/2008 4:11 PM CDT) PATHOLOGY/CYT OLOGY REPORT [facility] Anatomic Pathology Dept [address] [facility] [id number] Patient: DARREN CUMMINGS Accn No: [id number] Collected: 09/01/2008 4:11:00 PM SURGICAL PATHOLOGY FINAL REPORT Diagnosis A. 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 Nadine Garcia M.D. (Electronically signed by) Verified: 09/02/08 SANTIAGO/KHADAR Clinical Information None. Specimen Source ASpleen Microscopic Description Microscopic examination was performed. Gross Description Part A. Submitted in a container of formalin labelled Zoila - spleen is a reddish-greene splenectomy specimen submitted in multiple fragments with an aggregate measurement of 12.5 x 7 x 5.3 cm and weighing 219 gm. Reddish- greene clotted blood is seen adherent to the surface. Portions of the surface appear torn. Sectioning reveals a reddish-greene cut surface. No mass lesions are identified. Focal areas of hemorrhage are identified measuring up to 0.3 cm in diameter. Cassette Summary: A1 - off premise service representative sections of splenic artery A2-A3 - off premise service representative sections of spleen. DLS/WLS INTERFACE SYSTEM 09/01/2008 4:11 PM CDT us Kenyon Buschson PATHOLOGY/CYTOLOGY ORDERABLES Final Result INTERFACE SYSTEM Refer to clinic/hospital department * (ABNORMAL) POC ISTAT EG 7+ (09/01/2008 3:19 PM CDT) SODIUM 137(L) 138 - 146 mEq/L [facility] PH 7.40 7.35 - 7.45 Unit [facility] PO2 TEMP CORRECT 214(H) 80 - 105 mmHg [facility] O2 SATURATION 100(H) 95 - 98 % [facility] FIO2 70 [facility] PCO2 TEMP CORRECT 38 35 - 45 mmHg [facility] POTASSIUM 4.0 3.5 - 4.9 mEq/L [facility] HEMOGLOBIN POC 6.1 +/-3 g/dL 12.0 - 16.0 g/dL [facility] PH TEMP CORRECT 7.40 7.35 - 7.45 Unit [facility] TCO2 (CALC) POC 25 23 - 27 mmol/l [facility] HCO3 (CALC) POC 23.4 22.0 - 26.0 mmol/l [facility] TEMPERATURE 37.0 DegC [facility] HEMATOCRIT ABG 18(AA) 38 - 51 % [facility] PO2 214(H) 80 - 105 mmHg [facility] CALCIUM IONIZED 1.09(L) 1.12 - 1.32 mmol/l [facility] SPECIMEN TYPE Arterial [facility] Comment: Test Performed By [id number] Critical result performed at the point of care. Hemoglobin calculated from Hematocrit result PCO2 POC 38 35 - 45 mmHg [facility] BASE EXCESS -1 -2 - 3 mmol/l [facility] Arterial blood specimen (specimen) 09/01/2008 3:19 PM CDT 09/01/2008 3:22 PM CDT Conrad Richmond MD POINT OF CARE TESTING COM F inal Result INTERFACE SYSTEM Refer to clinic/hospital department [facility] CLIA# [id number] [address] [place] [address] * CT ABDOMEN PELVIS W CONTRAST (09/01/2008 1:25 PM CDT) Anatomical Region Laterality Modality Abdomen Other 09/01/2008 1:25 PM CDT Narrative 09/01/2008 3:17 PM CDT Exam: CT Abdomen, Pelvis, w/contrast Date/Time of Exam: Sep 01, 2008 1:25:55 PM History: Please see order comments. Contiguous thin section images were obtained of the abdomen and pelvis with the administration of IV contrast. Coronal and sagittal reconstructed images were performed. Contrast administered was: 75 mL of Optiray-240 through an existing IV site. Comparison CT scan of the chest, abdomen and pelvis is dated 08/31/2008. Visualized Lower Chest: There are small pleural effusions right greater than left. There is bibasilar atelectasis and/or some infiltrates. There appears to be some emphysema involving the lung bases. The visualized inferior aspect of the heart appears to be within normal limits. Abdomen and Pelvis: There is some perihepatic fluid that has slightly increased in size. There is pelvic fluid that has slightly increased. The Hounsfield units of the pelvic fluid suggest that it may be hemorrhage such as hemoperitoneum. The liver shows homogeneous enhancement without bile duct dilation or definite laceration. The hepatic vasculature appears appropriate. There is vicarious excretion of contrast material within the gallbladder. There appear to be some lacerations involving the superior aspect of the spleen. The size of the subcapsular hematoma regarding the spleen has increased when compared to prior study. For example, the thickness of the hematoma involving the inferior aspect of the spleen measures 4.8 cm on today's examination compared to 3.5 cm on the prior study. There appears to be some deformation of the splenic parenchyma given the sizable subcapsular hematoma. There are layering blood products of varying ages within the subcapsular hematoma. The pancreas and adrenal glands appear normal. The kidneys show symmetric enhancement without hydronephrosis. The abdominal aorta appears to be within normal limits without aneurysm, dissection or definite acute injury. The small bowel and colon reveal no definite acute abnormalities. There is a focal area of narrowing involving the colon at the junction of the sigmoid colon and descending colon as seen on series 2 image 66. This appears stable when compared to the prior study. Although this may be related to peristalsis, further workup is recommended to exclude a colon lesion. The uterus appears to be within normal limits. The urinary bladder is decompressed with a Orantes catheter. Review of the osseous structures reveals degenerative changes in the visualized spinal column, but no definite vertebral body compression fracture. The osseous structures of the pelvis and hips appear to be intact. Summary: 1. Superior splenic lacerations. Enlarging and sizable subcapsular hematoma regarding the spleen. 2. Findings consistent with hemoperitoneum most pronounced in the pelvis. The amount of blood products has slightly increased when compared to the prior study. 3. Small effusions. Bibasilar atelectasis and/or infiltrates. Some emphysema is noted in the lung bases. 4. Focal narrowing involving the colon at the junction of the descending colon and sigmoid colon. Although this may be related to peristalsis, further workup such as colonoscopy is recommended when the patient can tolerate such a procedure if the patient has not had routine surveillance colonoscopy. 5. Other findings as described. - Dictated By: Louie Coffman Jr., M.D. Electronically Signed By: Louie Coffman Jr., M.D. Date Signed: 09/01/08 Procedure Note Louie Coffman Jr. - 09/01/2008 Exam: CT Abdomen, Pelvis, w/contrast Date/Time of Exam: Sep 01, 2008 1:25:55 PM History: Please see order comments. Contiguous thin section images were obtained of the abdomen and pelviswith the administration of IV contrast. Coronal and sagittal reconstructed images were performed.Contrast administered was: 75 mL of Optiray-240 through an existing IV site. Comparison CT scan of the chest,abdomen and pelvis is dated 08/31/2008. Visualized Lower Chest: There are small pleural effusions right greaterthan left. There is bibasilar atelectasis and/or some infiltrates. There appears to be some emphysemainvolving the lung bases. The visualized inferior aspect of the heart appears to be within normallimits. Abdomen and Pelvis: There is some perihepatic fluid that has slightlyincreased in size. There is pelvic fluid that has slightly increased. The Hounsfield units of the pelvicfluid suggest that it may be hemorrhage such as hemoperitoneum. The liver shows homogeneous enhancementwithout bile duct dilation or definite laceration. The hepatic vasculature appears appropriate. There isvicarious excretion of contrast material within the gallbladder. There appear to be somelacerations involving the superior aspect of the spleen. The size of the subcapsular hematoma regarding thespleen has increased when compared to prior study. For example, the thickness of the hematomainvolving the inferior aspect of the spleen measures 4.8 cm on today's examination compared to 3.5 cm on theprior study. There appears to be some deformation of the splenic parenchyma given the sizable subcapsularhematoma. There are layering blood products of varying ages within the subcapsular hematoma. Thepancreas and adrenal glands appear normal. The kidneys show symmetric enhancement without hydronephrosis. Theabdominal aorta appears to be within normal limits without aneurysm, dissection or definite acuteinjury. The small bowel and colon reveal no definite acute abnormalities. There is a focal area of narrowinginvolving the colon at the junction of the sigmoid colon and descending colon as seen on series 2image 66. This appears stable when compared to the prior study. Although this may be related to peristalsis,further workup is recommended to exclude a colon lesion. The uterus appears to be within normal limits.The urinary bladder is decompressed with a Orantes catheter. Review of the osseous structuresreveals degenerative changes in the visualized spinal column, but no definite vertebral body compressionfracture. The osseous structures of the pelvis and hips appear to be intact. Summary: 1. Superior splenic lacerations. Enlarging and sizable subcapsularhematoma regarding the spleen. 2. Findings consistent with hemoperitoneum most pronounced in the pelvis.The amount of blood products has slightly increased when compared to the prior study. 3. Small effusions. Bibasilar atelectasis and/or infiltrates. Someemphysema is noted in the lung bases. 4. Focal narrowing involving the colon at the junction of the descendingcolon and sigmoid colon. Although this may be related to peristalsis, further workup such ascolonoscopy is recommended when the patient can tolerate such a procedure if the patient has not had routinesurveillance colonoscopy. 5. Other findings as described. - Dictated By: Louie Coffman Jr., M.D. Electronically Signed By: Louie Coffman Jr., M.D. Date Signed: 09/01/08 us Conrad Richmond MD CT ORDERABLES Final Resul t * (ABNORMAL) CBC WITH DIFFERENTIAL (09/01/2008 11:46 AM CDT) PLATELETS 171 140 - 440 K/ul [facility] WBC 10.7 4.8 - 10.8 K/ul [facility] MCH 29.7 27.0 - 34.0 pg [facility] EOSINOPHILS 0.2 0.0 - 7.0 % [facility] PERIPHERAL BLOOD SMEAR REVIEW Automated Diff [facility] EOSINOPHIL ABSOLUTE 0.0 0.0 - 0.7 K/ul [facility] HEMATOCRIT 24.5(L) 36.0 - 46.0 % [facility] LYMPHOCYTES 30.1 24.0 - 44.0 % [facility] LYMPHOCYTE ABSOLUTE 3.2 1.2 - 4.0 K/ul [facility] RBC 2.73(L) 4.20 - 5.40 Mil/ul [facility] MCHC 33.1 30.0 - 35.0 g/dL [facility] MPV 10.4 8.9 - 12.8 Fl [facility] BASOPHILS ABSOLUTE 0.0 0.0 - 0.2 K/ul [facility] BASOPHILS 0.1 0.0 - 1.0 % [facility] MCV 89.7 84.0 - 103.0 Fl [facility] MONOCYTE ABSOLUTE 1.0(H) 0.1 - 0.6 K/ul [facility] MONOCYTES 8.9 2.0 - 10.0 % [facility] HEMOGLOBIN 8.1(L) 12.0 - 16.0 g/dL [facility] RDW 15.0(H) 11.0 - 14.5 % [facility] NEUTROPHIL ABSOLUTE 6.5 2.0 - 8.0 K/ul [facility] NEUTROPHILS 60.7 42.2 - 75.2 % [facility] Blood specimen (specimen) 09/01/2008 11:46 AM CDT 09/01/2008 11:52 AM CDT us Conrad Richmond MD HEMATOLOGY ORDERABLES Final Result INTERFACE SYSTEM Refer to clinic/hospital department [facility] CLIA# [id number] [address] [place] [address] * XR CHEST PA OR AP (09/01/2008 6:21 AM CDT) Anatomical Region Laterality Modality Chest Other 09/01/2008 6:21 AM CDT Narrative 09/01/2008 8:57 AM CDT Exam: Chest - Portable Date/Time of Exam: Sep 01, 2008 6:21:46 AM History: Please see order comments. Findings: Today's study compared to 08/31/2008. Midline structures stable. Mediastinal fullness appears to reflect tortuous ectatic aorta. Persistent decreased lung volumes with central vascular and interstitial prominence at least partially due to accentuation although some component of pulmonary edema not excluded. There do appear to be small effusions in the deep bases. No pneumothorax - Dictated By: Sachin Blankenship D.O. Electronically Signed By: Sachin Blankenship D.O. Date Signed: 09/01/08 SDM Procedure Note Sachin Blankenship - 09/01/2008 Exam: Chest - Portable Date/Time of Exam: Sep 01, 2008 6:21:46 AM History: Please see order comments. Findings: Today's study compared to 08/31/2008. Midline structures stable. Mediastinal fullness appears to reflecttortuous ectatic aorta. Persistent decreased lung volumes with central vascular and interstitial prominenceat least partially due to accentuation although some component of pulmonary edema not excluded.There do appear to be small effusions in the deep bases. No pneumothorax - Dictated By: Sachin Blankenship D.O. Electronically Signed By: Sachin Blankenship D.O. Date Signed: 09/01/08 SDM us Conrad Richmond MD DIAGNOSTIC IMAGING ORDERABL ES Final Result * (ABNORMAL) CBC WITH DIFFERENTIAL (09/01/2008 3:35 AM CDT) HEMATOCRIT 27.3(L) 36.0 - 46.0 % [facility] BASOPHILS 0.1 0.0 - 1.0 % [facility] PLATELETS 176 140 - 440 K/ul [facility] RBC 3.05(L) 4.20 - 5.40 Mil/ul [facility] LYMPHOCYTES 18.5(L) 24.0 - 44.0 % [facility] MCHC 33.0 30.0 - 35.0 g/dL [facility] MONOCYTE ABSOLUTE 0.5 0.1 - 0.6 K/ul [facility] MCV 89.5 84.0 - 103.0 Fl [facility] MPV 10.2 8.9 - 12.8 Fl [facility] NEUTROPHIL ABSOLUTE 8.3(H) 2.0 - 8.0 K/ul [facility] HEMOGLOBIN 9.0(L) 12.0 - 16.0 g/dL [facility] RDW 14.7(H) 11.0 - 14.5 % [facility] BASOPHILS ABSOLUTE 0.0 0.0 - 0.2 K/ul [facility] MONOCYTES 4.4 2.0 - 10.0 % [facility] WBC 10.7 4.8 - 10.8 K/ul [facility] MCH 29.5 27.0 - 34.0 pg [facility] LYMPHOCYTE ABSOLUTE 2.0 1.2 - 4.0 K/ul [facility] NEUTROPHILS 77.0(H) 42.2 - 75.2 % [facility] Blood specimen (specimen) 09/01/2008 3:35 AM CDT 09/01/2008 3:41 AM CDT Conrad Richmond MD HEMATOLOGY ORDERABLES Final Result Performing Organization Address [facility] de Phone Number INTERFACE SYSTEM Refer to clinic/hospital department [facility] CLIA# [id number] [address] [place] [address] * (ABNORMAL) BASIC METABOLIC PANEL (09/01/2008 3:35 AM CDT) OSMOLALITY, CALCULATED 288 275 - 295 mOsm/Kg [facility] POTASSIUM 4.2 3.5 - 5.0 mEq/L [facility] CREATININE 0.7 0.7 - 1.2 mg/dL [facility] CALCIUM 8.7 8.4 - 10.5 mg/dL [facility] GLUCOSE 144(H) 70 - 110 mg/dL [facility] CHLORIDE 112(H) 95 - 110 mEq/L [facility] SODIUM 139 136 - 145 mEq/L [facility] ANION GAP 7(L) 9 - 20 mEq/L [facility] BUN 9 7 - 17 mg/dL [facility] CO2 24 22 - 32 mmol/l [facility] Blood specimen (specimen) 09/01/2008 3:35 AM CDT 09/01/2008 3:41 AM CDT us Conrad Richmond MD CHEMISTRY ORDERABLES Final Result Performing Organization Address [facility] de Phone Number INTERFACE SYSTEM Refer to clinic/hospital department [facility] CLIA# [id number] [address] [place] [address] * (ABNORMAL) BASIC METABOLIC PANEL (08/31/2008 10:54 PM CDT) POTASSIUM 4.1 3.5 - 5.0 mEq/L [facility] OSMOLALITY, CALCULATED 290 275 - 295 mOsm/Kg [facility] CREATININE 0.6(L) 0.7 - 1.2 mg/dL [facility] CALCIUM 8.5 8.4 - 10.5 mg/dL [facility] GLUCOSE 171(H) 70 - 110 mg/dL [facility] CHLORIDE 115(H) 95 - 110 mEq/L [facility] ANION GAP 6(L) 9 - 20 mEq/L [facility] SODIUM 140 136 - 145 mEq/L [facility] BUN 8 7 - 17 mg/dL [facility] CO2 23 22 - 32 mmol/l [facility] Blood specimen (specimen) 08/31/2008 10:54 PM CDT 08/31/2008 10:57 PM CDT us Conrad Richmond MD CHEMISTRY ORDERABLES Final Result INTERFACE SYSTEM Refer to clinic/hospital department [facility] CLIA# [id number] [address] [place] [id number] * (ABNORMAL) CBC WITH DIFFERENTIAL (08/31/2008 10:54 PM CDT) MCV 89.7 84.0 - 103.0 Fl [facility] BASOPHILS 0.1 0.0 - 1.0 % [facility] MPV 10.2 8.9 - 12.8 Fl [facility] BASOPHILS ABSOLUTE 0.0 0.0 - 0.2 K/ul [facility] HEMOGLOBIN 9.8(L) 12.0 - 16.0 g/dL [facility] MONOCYTES 3.7 2.0 - 10.0 % [facility] RDW 14.5 11.0 - 14.5 % [facility] MONOCYTE ABSOLUTE 0.6 0.1 - 0.6 K/ul [facility] WBC 15.0(H) 4.8 - 10.8 K/ul [facility] NEUTROPHILS 81.5(H) 42.2 - 75.2 % [facility] MCH 29.6 27.0 - 34.0 pg [facility] NEUTROPHIL ABSOLUTE 12.2(H) 2.0 - 8.0 K/ul [facility] HEMATOCRIT 29.7(L) 36.0 - 46.0 % [facility] PLATELETS 193 140 - 440 K/ul [facility] EOSINOPHIL ABSOLUTE 0.0 0.0 - 0.7 K/ul [facility] EOSINOPHILS 0.1 0.0 - 7.0 % [facility] RBC 3.31(L) 4.20 - 5.40 Mil/ul [facility] MCHC 33.0 30.0 - 35.0 g/dL [facility] LYMPHOCYTE ABSOLUTE 2.2 1.2 - 4.0 K/ul [facility] LYMPHOCYTES 14.6(L) 24.0 - 44.0 % [facility] Blood specimen (specimen) 08/31/2008 10:54 PM CDT 08/31/2008 10:57 PM CDT Conrad Richmond MD HEMATOLOGY ORDERABLES Final Result Performing Organization Address City/[facility] de Phone Number INTERFACE SYSTEM Refer to clinic/hospital department [facility] CLIA# [id number] [address] [place] [id number] * MRSA CULTURE (08/31/2008 8:14 PM CDT) FINAL REPORT Culture screen for MRSA negative INTERFACE SYSTEM ANTERIOR NARES SWAB / Unknown 08/31/2008 8:14 PM CDT 09/01/2008 7:43 AM CDT Conrad Richmond MD MICROBIOLOGY - [facility] Final Result Performing Organization Address City/[facility] de Phone Number INTERFACE SYSTEM Refer to clinic/hospital department * XR ELBOW 2 VW LEFT (08/31/2008 6:48 PM CDT) Anatomical Region Laterality Modality Upper Extremity Other 08/31/2008 6:48 PM CDT Narrative 09/02/2008 8:49 AM CDT No fracture, subluxation or significant joint space abnormality. Impression: 1. Unremarkable. - Dictated By: Sameer Camacho M.D. Electronically Signed By: Sameer Camacho M.D. Date Signed: 09/02/08 [facility] Procedure Note Kris Camacho B - 09/02/2008 No fracture, subluxation or significant joint space abnormality. Impression: 1. Unremarkable. - Dictated By: Sameer Camacho M.D. Electronically Signed By: Sameer Camacho M.D. Date Signed: 09/02/08 [facility] us Brett Cosby MD DIAGNOSTIC IMAGING ORDERAB LES Final Result * CT CHEST ABDOMEN PELVIS W CONT (08/31/2008 6:29 PM CDT) Anatomical Region Laterality Modality Chest Other 08/31/2008 6:29 PM CDT Narrative 08/31/2008 6:[address] chest, abdomen, and pelvis with contrast. History: Trauma. The examinations have been performed with 75 mL of Optiray-240. No mediastinal hematoma or enlarged lymph nodes. Heart size is normal. No pericardial fluid. Few small predominately upper lobe peripheral hyperlucent emphysematous changes and scattered mild interstitial fibrosis and mild scarring within the inferolateral aspect of the right middle lobe. No pneumothorax. Very small hemorrhagic pleural fluid collections. The sternum and ribs are intact. No acute thoracic or lumbar fracture. Multilevel thoracolumbar degenerative changes and a mild thoracic dextroscoliosis. The small linear band of decreased attenuation at the superior aspect of the spleen may represent a laceration. There is also a small focal defect at the posterolateral splenic border most consistent with acute posttraumatic change. Moderate subcapsular perisplenic hematoma with slightly irregular borders. Mild low-attenuating perihepatic fluid and/or hemorrhage. No liver lacerations or biliary duct dilatation. The gallbladder and pancreas are unremarkable. No adrenal mass. The kidneys enhance homogeneously and there is no hydronephrosis. No gastric, small or large bowel distention and no evidence of free intraperitoneal air. A moderate amount of hemorrhage with irregular borders is present in the lower pelvis and cul-de-sac. Moderate distention of the bladder. The uterus and adnexal regions are unremarkable. The pelvis and bilateral hips are intact. Impression: 1. COPD, mild pulmonary fibrosis and mild scarring in the right middle lobe. Very small bilateral hemorrhagic pleural fluid collections. No mediastinal mass or evidence of an aortic injury. 2. Probable small superior and inferolateral splenic lacerations and a moderate perisplenic hematoma. Mild perihepatic hemorrhage and a moderate amount of hemorrhage within the mid and lower pelvis. CT head without contrast. The ventricles are normal and the red-white junction is well delineated. A few vague areas of decreased attenuation in the cerebral periventricular white matter likely represent chronic small vessel ischemic change. No evidence of an acute infarct, mass or hemorrhage. The visualized paranasal sinuses and mastoid air cells are clear. The nasal septum deviates to the right. The calvarium is intact. The orbits are unremarkable. Impression: 1. No evidence of an acute intracranial abnormality. CT cervical spine: Mild cervicothoracic dextroscoliosis and multilevel degenerative changes. No fracture or subluxation. Biapical emphysematous changes. Impression: 1. No fracture. - Dictated By: Sameer Camacho M.D. Electronically Signed By: Sameer Camacho M.D. Date Signed: 09/01/08 [facility] Procedure Note Provider, Historical - 09/01/2008 CT chest, abdomen, and pelvis with contrast. History: Trauma. The examinations have been performed with 75 mL of Optiray-240. No mediastinal hematoma or enlarged lymph nodes. Heart size is normal. Nopericardial fluid. Few small predominately upper lobe peripheral hyperlucent emphysematous changes andscattered mild interstitial fibrosis and mild scarring within the inferolateral aspect of the rightmiddle lobe. No pneumothorax. Very small hemorrhagic pleural fluid collections. The sternum and ribs areintact. No acute thoracic or lumbar fracture. Multilevel thoracolumbar degenerative changes and a mildthoracic dextroscoliosis. The small linear band of decreased attenuation at the superior aspect ofthe spleen may represent a laceration. There is also a small focal defect at the posterolateralsplenic border most consistent with acute posttraumatic change. Moderate subcapsular perisplenic hematoma withslightly irregular borders. Mild low-attenuating perihepatic fluid and/or hemorrhage. No liverlacerations or biliary duct dilatation. The gallbladder and pancreas are unremarkable. No adrenalmass. The kidneys enhance homogeneously and there is no hydronephrosis. No gastric, small or largebowel distention and no evidence of free intraperitoneal air. A moderate amount of hemorrhage withirregular borders is present in the lower pelvis and cul-de-sac. Moderate distention of the bladder. Theuterus and adnexal regions are unremarkable. The pelvis and bilateral hips are intact. Impression: 1. COPD, mild pulmonary fibrosis and mild scarring in the right middlelobe. Very small bilateral hemorrhagic pleural fluid collections. No mediastinal mass or evidence ofan aortic injury. 2. Probable small superior and inferolateral splenic lacerations and amoderate perisplenic hematoma. Mild perihepatic hemorrhage and a moderate amount of hemorrhage within themid and lower pelvis. CT head without contrast. The ventricles are normal and the red-white junction is well delineated.A few vague areas of decreased attenuation in the cerebral periventricular white matter likely representchronic small vessel ischemic change. No evidence of an acute infarct, mass or hemorrhage. The visualized paranasal sinuses and mastoid air cells are clear. Thenasal septum deviates to the right. The calvarium is intact. The orbits are unremarkable. Impression: 1. No evidence of an acute intracranial abnormality. CT cervical spine: Mild cervicothoracic dextroscoliosis and multileveldegenerative changes. No fracture or subluxation. Biapical emphysematous changes. Impression: 1.

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
--- OUTSIDE RECORDS SUMMARY | 2025-08-26 13:25 | XMS_ITS | Encounter Summary ---
Author Organization [facility] Address [address] [place] [address] Care Team Providers Care Senior Auditor Name Role Phone Les Jones DO Primary Care Provider [phone] Encounter Details Date Type Department Care Team (Latest Contact Info) Description 09/23/2008 Outpatient Historical [facility] [address] [place] [id number] Conrad Richmond MD [address] [address] Painful Respiration Social History Tobacco Use Types Packs/Day Years Used Date Smoking Tobacco: Never Assessed Comments Unknown Sex and Gender Information Value Date Recorded Sex Assigned at Not on file 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 Gender Identity Not on file Sexual Orientation Not on file documented as of this encounter Plan of Treatment Not on file documented as of this encounter Procedures Procedure Name Priority Date/Time Associated Diagnosis Comments XR CHEST PA AND LATERAL 2 VW Routine 09/23/2008 1:52 PM STAGE DRIVER documented in this encounter Results * XR CHEST PA AND LATERAL (09/23/2008 1:52 PM STAGE DRIVER) Anatomical Region Laterality Modality Chest Other 09/23/2008 1:52 PM STAGE DRIVER Narrative 09/27/2008 5:32 PM STAGE DRIVER Exam: Chest - PA and Lateral Date/Time of Exam: Sep 23, 2008 1:52:02 PM History: 789.52. Comparisons: 09/07/2008 at 0950. Findings: Heart size and mediastinal silhouette appear within normal limits. Small left pleural effusion is again identified. Right lung is clear. No evidence for pneumothorax. Impressions: 1. Small left pleural effusion. - Dictated By: Sonu Roman M.D., Ph.D. Electronically Signed By: Sonu Roman M.D., Ph.D. Date Signed: 09/27/08 Procedure Note Sonu Roman - 09/27/2008 Exam: Chest - PA and Lateral Date/Time of Exam: Sep 23, 2008 1:52:02 PM History: 789.52. Comparisons: 09/07/2008 at 0950. Findings: Heart size and mediastinal silhouette appear within normallimits. Small left pleural effusion is again identified. Right lung is clear. No evidence for pneumothorax. Impressions: 1. Small left pleural effusion. - Dictated By: Sonu Roman M.D., Ph.D. Electronically Signed By: Sonu Roman M.D., Ph.D. Date Signed: 09/27/08 Conrad Richmond MD DIAGNOSTIC IMAGING ORDERABL ES Final Result documented in this encounter Visit Diagnoses Diagnosis Painful respiration documented in this encounter Care Teams Senior Auditor Relationship Specialty Start Date End Date Les Jones DO [address] [place] [address] PCP - General Specialist 03/30/17 documented as of this encounter
--- OUTSIDE RECORDS SUMMARY | 2025-08-26 13:25 | XMS_ITS | Clinical Summary ---
Author Organization [facility] Address [address] [place] [address] Care Team Providers Care Dna Sequencing Associate Name Role Phone Les Jones Primary Care Provider [phone] Allergies Active Allergy Reactions Criticality Noted Date Comments Iodixanol Nausea and Vomiting,Headache High 018 Medications atenolol (TENORMIN) 50 mg tabletIndication s:Pre-procedure lab exam Take 50 mg by mouth daily. Active lisinopril (PRINIVIL) 10 mg tabletIndication s:Pre-procedure lab exam Take 10 mg by mouth daily. Active methIMAzole (TAPAZOLE, NORTHYX) 10 mg tabletIndication s:Pre-procedure lab exam Take by mouth daily. Active SUMAtriptan (IMITREX) 25 mg tabletIndication s:Pre-procedure lab exam Take 50 mg by mouth every 2 hours as needed for Other (See Comment) may repeat in 2 hours; max dose 200mg in 24 hours . Active docusate sodium (COLACE) 100 mg capsule Take 100 mg by mouth 2 times daily. Active polyethylene glycol (MIRALAX) 17 gram Powder in Packet Take 17 Grams by mouth daily. Active aspirin (ALEXANDRA) 325 mg tablet Take 1 Tablet (325 mg) by mouth daily. 90 Tablet 07/01/2017 Active dexamethasone (DECADRON) 1 mg Tablet Take 1 Tablet (1 mg) by mouth daily 4 mg every 6 hr for 1 day; 4 mg every 12 hr for 1 day; 2 mg every 12 hr for 1 day; 1 mg every 12 hr for 1 day; 0.5 mg every 12 hr for 1 day. 40 Tablet 12/29/2017 Active Active Problems Problem Noted Date Diagnosed Date Headache 12/28/2017 Nausea 12/28/2017 Tobacco use 04/01/2017 Cigarette dependence 04/01/2017 Essential hypertension 03/31/2017 Cerebral aneurysm 03/01/2017 Immunizations Immunization Administration Dates Next Due (PNEUMOVAX 23)(50 YRS UP) PN EUMOCOCCAL POLYSACCHARIDE (PPV23) 0.5 ML, IM 09/07/2008 HIB, Unspecified Formulation 09/07/2008 Meningococcal Polysaccharide Vaccine SQ 09/07/20 08 Social History Tobacco Use Types Packs/Day Years Used Date Smoking Tobacco: Former Cigarettes 0.5 50 0 03/29/1967 - 03/29/2017 Smokeless Tobacco: Never Comments:has quit on and off Alcohol Use Standard Drinks/Week Comments No 0 (1 standard drink = 0.6 oz pur e alcohol) Comments No Sex and Gender Information Value Date Recorded Sex Assigned at Not on file Legal Sex Female 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 Gender Identity Not on file Sexual Orientation Not on file Last Filed Vital Signs Vital Sign Reading Time Taken Comments Blood Pressure 148/78 12/29/2017 11:48 AM DRESSING ROOM PORTER Pulse 75 12/29/2017 11:48 AM DRESSING ROOM PORTER Temperature 36.7 C (98.1 F) 12/29/2017 11:48 AM DRESSING ROOM PORTER Respiratory Rate 18 12/29/2017 11:48 AM DRESSING ROOM PORTER Oxygen Saturation 92% 12/29/2017 11:48 AM DRESSING ROOM PORTER Inhaled Oxygen Concentration - - Weight 72.1 kg (159 lb) 12/28/2017 6:16 PM DRESSING ROOM PORTER Height 154.9 cm (5' 1 ) 12/28/2017 6:16 PM DRESSING ROOM PORTER Body Mass Index 30.04 12/28/2017 6:16 PM DRESSING ROOM PORTER Plan of Treatment Health Maintenance Due Date Last Done Comments DTAP/TDAP/TD VACCINES (1 - Tdap) 01/30/1971 BREAST CANCER SCREENING 1992 COLORECTAL SCREENING 01/30/1997 Colorectal Cancer Screening 01/30/1997 FIT-DNA Q 3 years 01/30/1997 FIT/FOBT Q 1 year 01/30/1997 Flex Sig/CT Colonography Q 5 years 01/30/1997 ZOSTER VACCINE (1 of 2) 01/30/2002 PNEUMOCOCCAL VACCINE 50+ YEARS (2 of 2 - PCV) 09/07/20 09 09/07/2008 OSTEOPOROSIS SCREENING 01/30/2017 INFLUENZA VACCINE (#1) 2025 RSV VACCINE (60+ or ) (1 - 1-dose 75+ series) 01/30/2027 Medical Devices Implanted Type Area Residential Property Consultant Device Identifier Shelf Expiration Date Model / Serial / Lot Target 360 Soft Coil-04/01/2017 Implanted:Qty: 1 on 04/01/2017 by Zainab Molina MD Coil Brain [employer] 01/18/2020 / / [id number] Target 360 Ultra Coil-04/01/2017 Implanted:Qty: 1 on 04/01/2017 by Zainab Molina MD Coil Brain [employer] 12/20/2019 / / [id number] Microplex Hypersoft 3d Coil-04/01/2017 Implanted:Qty: 1 on 04/01/2017 by Zainab Molina MD Coil Brain [employer]- MICROVENTION 12/19/2020 / / [id number] Target 360 Susanne Coil-04/01/2017 Implanted:Qty: 1 on 04/01/2017 by Zainab Molina MD Coil Brain [employer] 11/19/2019 / / [id number] Target 360 Susanne Coil-04/01/2017 Implanted:Qty: 1 on 04/01/2017 by Zainab Molina MD Coil Brain [employer] 12/20/2019 / / [id number] Target 360 Susanne Coil-04/01/2017 Implanted:Qty: 1 on 04/01/2017 by Zainab Molina MD Coil Brain [employer] 10/19/2019 / / [id number] Target 360 Susanne Coil-04/01/2017 Implanted:Qty: 1 on 04/01/2017 by Zainab Molina MD Coil Brain [employer] 10/19/2019 / / [id number] Angioseal Evolution Other Right: Groin TERUM[employer]- VASCUTEK 08/19/2018 [id number] / / [id number] Description:6fr angioseal ev olution Angio-Seal Vip Closure Device [id number]/11/20 17 Implanted:Qty: 1 on 03/30/2017 by Zainab Molina MD Other Right: Groin [employer] 12/20/2017 [id number] / / [id number] Description:rt common femora l [employer] Stent- 7 Implanted:Qty: 1 on 04/01/2017 by Zainab Molina MD Stent Brain 12/17/2018 / / [id number] Insurance [address] [place] [address] MEDICARE PART A AND B Advance Directives For more information, please contact: [phone] * Full Code (Latest Code Status on File) Date Activated Date Inactivated Comments 12/28/2017 4:28 PM 12/28/2017 5:45 PM * Full Code Date Activated Date Inactivated Comments 03/30/2017 4:56 PM 04/02/2017 3:18 PM Care Teams Dna Sequencing Associate Relationship Specialty Start Date End Date Les Jones DO [address] [place] [address] PCP - General Specialist 03/30/17
[2025-08-26 13:39] VITALS: BP 130/91; PULSE 63; TEMP 36.8; O2SAT 97
[2025-08-26 14:45] VITALS: BP 155/89; PULSE 64; RESP 18; O2SAT 97
--- NOTE | 2025-08-26 14:52 | CTR_ITS ---
PROCEDURE INFORMATION: Exam: CT Head Without Contrast Exam date and time: 08/26/2025 3:15 PM Age: 75 years old Clinical indication: Dizziness and other: Confusion; PT arrives from Dr chang office C/O n/v and L side numbness/weakness x1 month. Previous stroke; Additional info: Dizziness/confusion TECHNIQUE: Imaging protocol: Computed tomography of the head without contrast. Radiation optimization: All CT scans at this facility use at least one of these dose optimization techniques: automated exposure control; mA and/or kV adjustment per patient size (includes targeted exams where dose is matched to clinical indication); or iterative reconstruction. COMPARISON: CT head wo con* [id number] 09/20/2024 1:13 PM RADIATION DOSE METRICS: Total DLP (mGy-cm): 949.88 FINDINGS: Limitations: Embolization coil mass in the region of the top of the basilar artery creates artifact limiting evaluation of the immediately adjacent soft tissues and bone. Brain: Severe nonspecific white matter low attenuation which may be related to microvascular ischemic changes. Stable encephalomalacia involving the left parietal and temporal lobes. No acute confluent lobar ischemic infarct. No acute intracranial hemorrhage. Left basal ganglia lacune. Cerebral ventricles: The ventricles and sulci are prominent in size compatible with mild atrophy. Paranasal sinuses: No fluid levels. Mastoid air cells: Visualized mastoid air cells are well aerated. Bones: No acute calvarial fracture. Soft tissues: Visualized soft tissues are unremarkable. CT/CT head wo con* [id number] IMPRESSION: No acute intracranial abnormality. If symptoms persist, consider further evaluation with MRI, if there are no contraindications to obtaining a MRI scan.
--- NOTE | 2025-08-26 14:53 | XR_ITS ---
WS: [id number] Portable AP upright chest, 08/26/2025 Clinical Data: dyspnea/cough Comparison: Portable chest, 03/14/2025 Findings: No nodules, masses or effusions are seen. The heart is normal. The pulmonary vascularity is not increased. No pneumonia or pneumothorax is seen. There is interstitial change in the medial left apex and adjacent to the left side of the aortic arch. The diaphragms are flattened. The aortic arch and descending thoracic aorta show tortuosity. XR/XR chest 1V portable [id number] Impression: 1. Interstitial change in medial left apex and adjacent to aortic arch which re pete the same. 2. Hyperinflation and atherosclerosis.
[2025-08-26 15:18] LABS: Hematocrit 40.6 % (36-47); Hemoglobin 13.40 g/dL (11.27-16.99); Mean Corpuscular HGB Conc 33.0 g/dL (30-55); Mean Corpuscular Hemoglobin 27.0 pg (27-33); Mean Corpuscular Volume 81.9 fl (85-98); Nucleated Red Blood Cells % 0 %; Platelet Count 486 10^3/cmm (157-399); Red Blood Count 4.96 10^6/uL (3.85-5.65); White Blood Count 14.68 10^3/uL (3.29-11.43)
--- NOTE | 2025-08-26 15:22 | CTR_ITS ---
PROCEDURE INFORMATION: Exam: CT Neck With Contrast Exam date and time: 08/26/2025 3:28 PM Age: 75 years old Clinical indication: Dysphagia / difficulty swallowing; Additional info: Dysphagia abnormal CT February 2025 TECHNIQUE: Imaging protocol: Computed tomography of the neck with contrast. Radiation optimization: All CT scans at this facility use at least one of these dose optimization techniques: automated exposure control; mA and/or kV adjustment per patient size (includes targeted exams where dose is matched to clinical indication); or iterative reconstruction. Contrast material: OMNIPAQUE 350; Contrast volume: 100 ml; Contrast route: INTRAVENOUS (IV); COMPARISON: CT neck w con* [id number] 03/14/2025 5:49 PM RADIATION DOSE METRICS: Total DLP (mGy-cm): 167.05 FINDINGS: Brain: Suprasellar aneurysm clip again noted. Left temporoparietal infarct again noted. Paranasal sinuses: Dependent fluid in the left maxillary sinusitis. Mild mucosal thickening in the ethmoid air cells and frontal sinuses. Salivary glands: Normal. Glands are normal in size. Pharynx: Mural thickening and enhancement enlarges naso pharyngeal soft tissues, occluding the nasopharyngeal airway. The mucosal thickening and enhancement extends inferiorly within the soft palate and uvula. Similar nodular hyperdense thickening involves the posterior mucosal surface of the tongue base, also unchanged. Larynx: 14 x 10 x 16 mm well-defined soft tissue density nodule in the left paraglottic location is unchanged. Diffuse mucosal thickening enhancement involving the vocal cords is unchanged. Thyroid: Normal. No enlarged or calcified nodules. Trachea: Visualized trachea is unremarkable. Lungs: Unchanged 4.5 cm peripheral consolidation medially in the left lobe with associated air bronchograms. Severe bullous disease again noted in the visualized upper lungs. Lymph nodes: Unremarkable. No lymphadenopathy. Bones/joints: Unchanged severe degenerative disc disease at C4-C5, C5-C6 and C6-C7. Soft tissues: Unremarkable. No significant soft tissue swelling. CT/CT neck w con* [id number] IMPRESSION: 1. Persistent mucosal and submucosal thickening and enhancement involving the pharyngeal and laryngeal soft tissues. The appearance could represent a chronic inflammatory or neoplastic process. 2. Unchanged 1.6 cm left paraglottic nodule, requiring ENT evaluation. 3. Dependent fluid in the left maxillary sinusitis. Mild mucosal thickening in the ethmoid air cells and frontal sinuses. Mild sinusitis.
--- NOTE | 2025-08-26 15:28 | W.ED.NAVMDI ---
HPI - Nausea/Vomiting/Diarrhea General: Chief complaint: Nausea/Vomiting/Diarrhea Stated complaint: dr hyde sent, dizzy, confusion, L numbness Time Seen by Provider: 08/26/25 14:38 History of Present Illness: 75-year-old female presents emergency room complaining of difficulty swallowing. She is adamant that this is due to her thyroid. She has been having left-sided numbness she states for a month. She has seen Dr. Hyde discussed with Dr. Hyde and read her note from the office. Her biggest concern is difficulty swallowing. She has had Botox injection in the past but none recently. In February of this year she was seen here in the emergency room had a laryngeal mass, she also had a cecal mass she was transferred for the cecal mass she acknowledges to me today that she was aware of the laryngeal mass she recalls the ER doctor telling her but she has not followed up on it because she just stated she had not felt well. Associated symtoms: Denies chest pain or dysuria Related Data Home Medications ?Medication ?Instructions ?Recorded ?Confirmed atenolol 50 mg tablet 50 mg PO DAILY@03/08/21 08/26/25 clopidogrel 75 mg tablet 75 mg PO DAILY@03/08/21 08/26/25 Held on 10/28/24. Instructions: Resume on 10/31/24. pantoprazole 40 mg tablet,delayed 40 mg PO BID 03/08/21 08/26/25 release (Protonix) apixaban 5 mg tablet (Eliquis) 5 mg PO BID 10/25/24 08/26/25 Held on 10/28/24. Instructions: Resume on 10/31/24. methimazole 10 mg tablet 10 mg PO DAILY 08/26/25 08/26/25 sucralfate 1 gram tablet 1 g PO QID 08/26/25 08/26/25 Previous Rx's ?Medication ?Instructions ?Recorded sumatriptan succinate 100 mg tablet See Rx Instructions .Route 04/10/23 .COMPLEX #9 tabs fluticasone fur. 100 mcg-umeclid 1 inh inhalation Q24H #60 ea 07/11/24 62.5 mcg-vilant 25 mcg inhalat.powder (Trelegy Ellipta) Allergies Allergy/AdvReac Type Severity Reaction Status Date / Time No Known Allergies Allergy Verified 08/26/25 13:46 Review of Systems Const: Denies: fever(s) or chills ENMT: Reports: other (Difficulty swallowing) Card: Denies: chest pain Resp: Denies: dyspnea GI: Denies: abdominal pain : Denies: dysuria, urinary frequency or urinary urgency Musc: Denies: neck pain or back pain Skin/Breast: Denies: rash PFSH ED PFSH: Medical History Chronic migraine without aura, intractable, with status migrainosus Non-small cell lung cancer Chronic migraine Lumbar spinal stenosis Degenerative joint disease of spine COPD (chronic obstructive pulmonary disease) Hyperthyroidism Continue on home methimazole Basilar artery aneurysm Dyslipidemia Hypertension Anxiety disorder Insomnia Plantar fasciitis Statin intolerance Gastritis Surgical History History of esophagogastroduodenoscopy (EGD) 2019 -gastritis Status post colonoscopy 2018: Normal repeat in 10 years S/P coil embolization of cerebral aneurysm 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, stent subsequently removed H/O section H/O splenectomy 2007 Family History Mother Diabetes Father Heart disease Grandmother Stroke Other Suicide Denies family history of CAD (coronary artery disease) Clotting disorder Dementia Hyperlipidemia Psychiatric illness Chronic kidney disease (CKD) Anesthesia complication Bleeding disorder Lung disease Cancer Hypertension Social History Smoking and tobacco/nicotine status: former use of tobacco/nicotine Quit status (tobacco/nicotine): has quit using Year quit tobacco: 2017 [id number] Second hand smoke exposure: No Alcohol intake: former Substance/Drug Use: current Substance/Drug use frequency: few times a week Lives independently: Yes Household members: spouse Marital status: service: No Current occupational status: retired Pets and animals: Yes Do you think of yourself as: Straight/Heterosexual Current gender identity: Female Physical Exam Const: COMMON NORMALS: no acute distress GENERAL APPEARANCE: cooperative and comfortable ORIENTATION/CONSCIOUSNESS: Yes awake, Yes oriented to person, Yes oriented to place and Yes oriented to time HENMT: COMMON NORMALS: normocephalic, atraumatic and hearing grossly normal bilaterally HEAD & SCALP: normocephalic and atraumatic Resp: COMMON NORMALS: normal respiratory effort, No retractions, No use of accessory muscles and clear to auscultation bilaterally AUSCULTATION: clear to auscultation bilaterally Cardio: COMMON NORMALS: regular rate, regular rhythm and No murmurs present (Cardio) RATE: regular rate RHYTHM: regular rhythm GI: COMMON NORMALS: Soft to palpation and No hepatosplenomegaly present AUSCULTATION: Yes normoactive bowel sounds PALPATION: Yes Soft to palpation, No Tenderness to palpation present (GI), No Guarding due to palpation present (GI) and Yes No hepatosplenomegaly present Extremity: COMMON NORMALS: normal to inspection, capillary refill normal, no clubbing, cyanosis or edema, no calf tenderness and no pedal edema Neuro: SENSORIUM/ORIENTATION: Yes oriented to person, Yes oriented to place and Yes oriented to time Skin: COMMON NORMALS: no rashes or lesions noted GENERAL SKIN EXAM: no rashes or lesions noted Course Vital Signs: Vital signs: Vital Signs Temperature 98.3 F 08/26/25 13:39 Pulse Rate 64 08/26/25 14:45 Respiratory Rate 18 08/26/25 14:45 Blood Pressure 155/89 08/26/25 14:45 Pulse Oximetry 97 08/26/25 14:45 Oxygen Delivery Me thod Room Air 08/26/25 13:39 MDM - Nausea/Vomiting/Diarrhea Medical Decision Making No signs of acute CVA. Either on exam or on the CT. Repeat CT of the neck shows persistent laryngeal mass but this was causing most of her difficulty. Patient acknowledges she was advised of this but just had not followed through on getting it further evaluate because she stated she did not feel well. I contacted Dr. Wilson and he has agreed to see the patient case assembler will help make an appointment stressed to the patient the importance of her keeping this appointment to get further evaluation of this mass. She has Eliquis listed on her medication list but both the Eliquis and clopidogrel are on hold advised her to continue not taking these until she sees Dr. Wilson. Medical Records I reviewed the patient's medical records. Lab Data I reviewed the patient's lab results. 08/26/25 15:09 08/26/25 15:[address] 08/26/25 14:52 IMPRESSION: No acute intracranial abnormality. If symptoms persist, consider further evaluation with MRI, if there are no contraindications to obtaining a MRI scan. Chest X-Ray 08/26/25 14:53 Impression: 1. Interstitial change in medial left apex and adjacent to aortic arch which remains the same. 2. Hyperinflation and atherosclerosis. Neck CT 08/26/25 15:22 IMPRESSION: 1. Persistent mucosal and submucosal thickening and enhancement involving the pharyngeal and laryngeal soft tissues. The appearance could represent a chronic inflammatory or neoplastic process. 2. Unchanged 1.6 cm left paraglottic nodule, requiring ENT evaluation. 3. Dependent fluid in the left maxillary sinusitis. Mild mucosal thickening in the ethmoid air cells and frontal sinuses. Mild sinusitis. Laboratory Results WBC 14.68 10^3/uL (3.29-11.43) H 08/26/25 15:09 RBC 4.96 10^6/uL (3.85-5.65) 08/26/25 15:09 Hgb 13.40 g/dL (11.27-16.99) 08/26/25 15:09 Hct 40.6 % (36-47) 08/26/25 15:09 MCV 81.9 fl (85-98) L 08/26/25 15:09 MCH 27.0 pg (27-33) 08/26/25 15:09 MCHC 33.0 g/dL (30-55) 08/26/25 15:09 RDW 19.5 % (12.1-15.1) H 08/26/25 15:09 Plt Count 486 10^3/cmm (157-399) H 08/26/25 15:09 MPV 9.2 fL (7.4-10.4) 08/26/25 15:09 Neut % (Auto) 63.7 % 08/26/25 15:09 Lymph % (Auto) 24.5 % 08/26/25 15:09 [place] % (Auto) 10.6 % 08/26/25 15:09 Eos % (Auto) 0.4 % 08/26/25 15:09 Baso % (Auto) 0.4 % 08/26/25 15:09 Neut # (Auto) 9.35 10^3/uL (1.8-7.7) H 08/26/25 15:09 Lymph # (Auto) 3.6 10^3/uL (0.8-4.8) 08/26/25 15:09 [place] # (Auto) 1.6 10^3/uL (0.2-0.9) H 08/26/25 15:09 Eos # (Auto) 0.1 10^3/uL (0.0-0.8) 08/26/25 15:09 Baso # (Auto) 0.1 10^3/uL (0.0-0.1) 08/26/25 15:09 Nucleated RBC % (auto) 0 % 08/26/25 15:09 Nucleated RBCs # 0.0 /100WBC 08/26/25 15:09 Sodium 139 mmol/L (136-145) 08/26/25 15:09 Potassium 3.1 mmol/L (3.5-5.1) L 08/26/25 15:09 Chloride 98 mmol/L (98-107) 08/26/25 15:09 Carbon Dioxide 25 mmol/L (22-29) 08/26/25 15:09 Anion Gap 19.1 (5-19) H 08/26/25 15:09 BUN 14 mg/dL (8-23) 08/26/25 15:09 Creatinine 1.3 mg/dL (0.5-0.9) H 08/26/25 15:09 GFR Calculation Not Reportable 08/26/25 15:09 Glucose 99 mg/dL (65-115) 08/26/25 15:09 Calculated Osmolality 289 mOsm/kg (285-295) 08/26/25 15:09 Calcium 9.5 mg/dL (8.5-10.5) 08/26/25 15:09 Total Bilirubin 0.8 mg/dL (0.15-1.2) 08/26/25 15:09 AST 13 U/L (0-32) 08/26/25 15:09 ALT < 5 U/L (0-33) 08/26/25 15:09 Alkaline Phosphatase 88 U/L (35-105) 08/26/25 15:09 Total Protein 7.5 g/dL (6.6-8.7) 08/26/25 15:09 Albumin 4.3 g/dL (3.5-5.2) 08/26/25 15:09 Globulin 3.2 g/dL (1.3-4.6) 08/26/25 15:09 All radiology interpretation(s) finalized by discharge Discharge Plan Discharge Patient Disposition: Home Clinical Impression: Laryngeal mass Condition: Stable Prescriptions: No Action sucralfate 1 gram tablet 1 g PO QID methimazole 10 mg tablet 10 mg PO DAILY sumatriptan succinate 100 mg tablet See Rx Instructions .ROUTE .COMPLEX Qty: 9 0RF Dose Instruction: TAKE ONE TABLET BY MOUTH TWICE DAILY NEEDED FOR migraine HEADACHE wait AT least TWO HOURS between doses Rx Instructions: TAKE 1 TABLET PO TWICE DAILY NEEDED FOR migraine HEADACHE wait AT least 2 HOURS between doses Trelegy Ellipta 100-62.5-25 mcg blister with device 1 inh inhalation Q24H Qty: 60 0RF clopidogrel 75 mg tablet 75 mg PO DAILY@20 pantoprazole [Protonix] 40 mg tablet,delayed release (DR/EC) 40 mg PO BID atenolol 50 mg tablet 50 mg PO DAILY@20 Eliquis 5 mg tablet 5 mg PO BID Rx Instructions: TAKE ONE TABLET BY MOUTH TWICE DAILY Discharge Orders: Discharge ED (Routine); Ordered 08/26/25 Ordered By: Jayden Otero Referrals: Maria Gomez APN [Primary Care Provider, Family Practice] Discharge Diet: Full LIquid Discharge Activity: Resume usual activity Patient Instructions: Opioid Safety, Pain Management, Patient Portal & Fredi Instructions Activity Restrictions/Additional Instructions: Thank you for choosing [facility] for your healthcare needs today. It is very important that you follow up as instructed or that you return to the Emergency Department should you have concerns or if your condition changes or worsens in any way. Emergency department visits are focused on emergent conditions, in some cases you may require further evaluation on an outpatient basis. You were evaluated complaints of dizziness difficulty swallowing. CT of your head was negative and on exam there is no sign of acute stroke. We reviewed your old records and repeated a CT of your neck [id number] of this year you had a nodule on your larynx. You reported that you had not had any further follow-up on this nodule is still present and believe that is what is causing your difficulty swallowing. We contacted Dr. Garcia who is on-call for ENT he will see you in his office case assembler will help to make arrangements for this. Dr. Garcia can perform further evaluation and biopsy if it is felt appropriate. It is very important to follow through with this evaluation. (Please note that included in your discharge packet is information concerning opioid safety and pain management. This information is given to all patients were discharged from the ER regardless of their discharge diagnosis or the medicines they usually take or are prescribed.) Print Language: Guyanese Coding Level of Care Code ED Agricultural Crop Farm Manager for Judy Mcgrath NIH stroke score NIHSS Level Of Consciousness - 1a: 0 Level Of Consciousness Questions - 1b: Both Correct Level Of Consciousness Commands - 1c: Both Correct Best Gaze - 2: Normal Visual Ramírez - 3: No Visual Loss Facial Palsy - 4: Normal Motor Arm Right - 5: No Drift Motor Arm Left - 5: No Drift Motor Leg Right - 6: No Drift Motor Leg Left - 6: No Drift Limb Ataxia - 7: Absent Sensory - 8: Normal Best Language - 9: No Aphasia Dysarthia - 10: Normal Extinction And Inattention - 11: 0 Score Total Score: 0
[2025-08-26] MEDS: iohexol 350 mg/mL 500 mL Btl (per mL) IV (15:31)
[2025-08-26 15:37] LABS: Alanine Aminotransferase < 5 U/L (0-33); Albumin Level 4.3 g/dL (3.5-5.2); Alkaline Phosphatase 88 U/L (35-105); Aspartate Amino Transferase 13 U/L (0-32); Blood Urea Nitrogen 14 mg/dL (8-23); Calcium 9.5 mg/dL (8.5-10.5); Carbon Dioxide 25 mmol/L (22-29); Chloride 98 mmol/L (98-107); Creatinine Clr Calc Pharmacy 31.2492; Globulin 3.2 g/dL (1.3-4.6); Glucose 99 mg/dL (65-115); Osmolality Calculated 289 mOsm/kg (285-295); Sodium 139 mmol/L (136-145); Total Protein 7.5 g/dL (6.6-8.7)
[2025-08-26 15:46] LABS: Anion Gap 19.1 (5-19); Potassium 3.1 mmol/L (3.5-5.1)
[2025-08-26 16:00] VITALS: BP 148/74; BP 148/75; BP 151/89; PULSE 71; PULSE 72
--- NOTE | 2025-08-26 16:55 | ECG_ITS ---
[email or web address] Date: 2025-08-26 Pat Name: May Cummings Department: Room: Gender: Female Dock Associate: : 1950 Requested By: Jayden Verduzco Order Number: [id number] Lev MD: Kayla Vega M.D. Measurements Intervals [place] Rate: 65 P: -73 NC: 160 QRS: 60 QRSD: 70 T: 64 QT: 443 QTc: 463 Interpretive Statements ECTOPIC ATRIAL RHYTHM EARLY REPOLARIZATION [ST ELEVATION WITH NORMALLY INFLECTED T-WAVE] ABNORMAL RHYTHM ECG Compared to ECG 03/14/2025 19:42:41 Ectopic atrial rhythm now present Early repolarization now present Sinus rhythm no longer present Prolonged QT interval no longer present Baseline artifacts, need to repeat Electronically Signed On 08-26-2025 23:48:18 CDT by Kayla Vega M.D. [email or web address]
[2025-08-26 17:20] VITALS: BP 154/88; PULSE 66; O2SAT 95
--- NOTE | 2025-08-27 07:14 | DCPLANNER ---
Sent referral to Dr. Garcia's Office
== END 2025-08-26 17:20 | disposition home or self-care (01) ==
PROVIDERS: Emergency Provider Family Medicine; PCP Nurse Practitioner Family
DX: J38.7 Other diseases of larynx (principal); R11.2 Nausea with vomiting, unspecified; R13.10 Dysphagia, unspecified; J44.9 Chronic obstructive pulmonary disease, unspecified; E78.5 Hyperlipidemia, unspecified; Z85.118 Personal history of other malignant neoplasm of bronchus and lung; Z87.891 Personal history of nicotine dependence; Z79.01 Long term (current) use of anticoagulants; Z79.02 Long term (current) use of antithrombotics/antiplatelets; I10 Essential (primary) hypertension
CPT/HCPCS: 70450; 70491; 71045; 80053; 85025; 93005; 99215; 99285

== ENCOUNTER 2025-09-11 10:11 | Outpatient (CLI) | payer MEDICARE, SELFPAY ==
--- NOTE | 2025-09-11 10:17 | FL_ITS ---
WS: [id number] Barium swallow and esophagram, 09/11/2025 Clinical Data: DYSPHAGIA Comparison: None. Fluoroscopy time: 1min [id number] # of spot films: 41 Findings: The patient swallowed the thick and thin barium, and it flowed through the hypopharynx without hesitation. No stricture, mass, polyp or erosion was seen. No aspiration or penetration occurred. 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 The barium entered the esophagus and there was normal motility throughout. No hiatal hernia, reflux, stricture, polyp, mass, erosion or ulcer was noted. The barium proceeded normally into the stomach. FL/FL barium swallow [id number] Impression: Normal esophagram.
== END 2025-09-11 10:12 | disposition home or self-care (01) ==
LOC: RAD 10:12
PROVIDERS: PCP Nurse Practitioner Family; Visit Provider Specialist
DX: R13.10 Dysphagia, unspecified (principal); M47.892 Other spondylosis, cervical region
CPT/HCPCS: 74220

== ENCOUNTER 2025-09-25 14:03 | Emergency (ER) | payer MEDICARE, SELFPAY ==
[2025-09-25] VITALS (8 sets, daily range): BP systolic 108–173; BP diastolic 75–110; PULSE 72–111; RESP 16–22; TEMP 37; O2SAT 92–95; BMI 26.2
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
--- OUTSIDE RECORDS SUMMARY | 2025-09-25 14:11 | XMS_ITS | Encounter Summary ---
Author Organization [facility] Address [address] [place] [address] Care Team Providers Care Inside Wirer Name Role Phone Les Jones DO Primary Care Provider [phone] Encounter Details Date Type Department Care Team (Latest Contact Info) Description 09/23/2008 Outpatient Historical [facility] [address] [place] [phone] Conrad Richmond MD [address] [address] Painful Respiration Social History Tobacco Use Types Packs/Day Years Used Date Smoking Tobacco: Never Assessed Comments Unknown Sex and Gender Information Value Date Recorded Sex Assigned at Not on file 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 Gender Identity Not on file Sexual Orientation Not on file documented as of this encounter Plan of Treatment Not on file documented as of this encounter Procedures Procedure Name Priority Date/Time Associated Diagnosis Comments XR CHEST PA AND LATERAL 2 VW Routine 09/23/2008 1:52 PM BINDERY OPERATOR documented in this encounter Results * XR CHEST PA AND LATERAL (09/23/2008 1:52 PM BINDERY OPERATOR) Anatomical Region Laterality Modality Chest Other 09/23/2008 1:52 PM BINDERY OPERATOR Narrative 09/27/2008 5:32 PM BINDERY OPERATOR Exam: Chest - PA and Lateral Date/Time [...] respiration documented in this encounter Care Teams Inside Wirer Relationship Specialty Start Date End Date Les Jones DO [address] [place] [address] PCP - General Specialist 03/30/17 documented as of this encounter
--- OUTSIDE RECORDS SUMMARY | 2025-09-25 14:11 | XMS_ITS | Encounter Summary ---
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 (08/31/2008 8:14 PM CDT) FINAL REPORT Culture screen for MRSA negative INTERFACE SYSTEM ANTERIOR NARES SWAB / Unknown 08/31/2008 8:14 PM CDT 09/01/2008 7:43 AM CDT Conrad Richmond MD [facility] [place] Final Result Performing Organization Address [facility] Co de Phone Number INTERFACE SYSTEM Refer to clinic/hospital department * XR ELBOW 2 VW LEFT (08/31/2008 6:48 PM CDT) Anatomical Region Laterality Modality Upper Extremity Other 08/31/2008 6:48 PM CDT Narrative 09/02/2008 8:49 AM CDT No fracture, subluxation or significant joint space abnormality. Impression: 1. Unremarkable. - Dictated By: Sameer Camacho M.D. Electronically Signed By: Sameer Camacho M.D. Date Signed: 09/02/08 [facility] Procedure Note Kris Camacho B - 09/02/2008 [...] By: Sameer Camacho M.D. Date Signed: 09/01/08 [facility] Procedure Note Provider, Historical - 09/01/2008 CT [...] By: Sameer Camacho M.D. Date Signed: 09/01/08 [facility] Procedure Note Kris Camacho B - 09/01/2008 [...] Israel Munguia Electronically Signed By: MD Israel MunguiaFL Date Signed: 09/02/08 Brett Cosby MD DIAGNOSTIC [...] TYPE AND CROSSMATCH (08/31/2008 5:45 PM CDT) [email or web address] BLOOD BANK PRODUCT INTERFACE SYSTEM Blood specimen (specimen) 08/31/2008 5:45 PM CDT 08/31/2008 5:50 PM CDT Brett Cosby MD BLOOD BANK ORDERABLES Edit ed INTERFACE SYSTEM Refer to clinic/hospital department * ANTIBODY SCREEN (08/31/2008 5:45 PM CDT) ANTIBODY SCREEN Negative [facility] Blood specimen (specimen) 08/31/2008 5:45 PM CDT 08/31/2008 5:50 PM CDT Brett Cosby MD BLOOD BANK ORDERABLES Sandrine l Result Performing Organization Address [facility] de Phone Number INTERFACE SYSTEM Refer to clinic/hospital department [facility] CLIA# [id number] [address] [place] [address] * ABORH TYPING (08/31/2008 5:45 PM CDT) ABO/RH TYPE O Positive [facility] Blood specimen (specimen) 08/31/2008 5:45 PM CDT 08/31/2008 5:50 PM CDT Brett Cosby MD BLOOD BANK ORDERABLES Sandrine l Result Performing Organization Address [facility] Phone Number INTERFACE SYSTEM Refer to clinic/hospital department [facility] CLIA# [id number] [address] [place] [address] * PROTIME-INR (08/31/2008 5:45 PM CDT) PROTIME 14.0 12.8 - 15.8 Secs [facility] Comment:As of 2007 not e change in normal range. INR 1.0 [facility] Comment: Expected Values for INR: DVT/PE Goal INR 2.5; range 2.0 - 3.0 Valve Replacement Tissue Goal INR 2.5; range 2.0 - 3.0 Mechanical Goal INR 3.0; range 2.5 - 3.5 POST-SC Goal INR 2.5; range 2.0 - 3.0 or Goal 3.0; range 2.5 - 3.5 Atrial Fibrillation Goal INR 2.5; range 2.0 - 3.0 Ischemic Stroke Goal INR 2.5; range 2.0 - 3.0 For additional information see Guidelines for Anticoagulation available from the pharmacy [facility] [phone] Blood specimen (specimen) 08/31/2008 5:45 PM CDT 08/31/2008 5:50 PM CDT us Brett Cosby MD HEMATOLOGY ORDERABLES Sandrine l Result Performing Organization Address [facility] Phone Number INTERFACE SYSTEM Refer to clinic/hospital department [facility] CLIA# [id number] [address] [place] [address] * ETHANOL LEVEL (08/31/2008 5:45 PM CDT) ETHANOL % <0.010 <=0.010 % [facility] ETHANOL <10 <=10 mg/dL [facility] Blood specimen (specimen) 08/31/2008 5:45 PM CDT 08/31/2008 5:50 PM CDT us Brett Cosby MD CHEMISTRY ORDERABLES Final Result Performing Organization Address [facility] Phone Number INTERFACE SYSTEM Refer to clinic/hospital department [facility] CLIA# [id number] [address] [place] [address] * (ABNORMAL) CBC WITH DIFFERENTIAL (08/31/2008 5:45 PM CDT) MCV 88.5 84.0 - 103.0 Fl [facility] BASOPHILS 0.1 0.0 - 1.0 % [facility] MPV 10.3 8.9 - 12.8 Fl [facility] BASOPHILS ABSOLUTE 0.0 0.0 - 0.2 K/ul [facility] WBC 14.2(H) 4.8 - 10.8 K/ul [facility] MONOCYTES 5.9 2.0 - 10.0 % [facility] RDW 14.5 11.0 - 14.5 % [facility] MONOCYTE ABSOLUTE 0.8(H) 0.1 - 0.6 K/ul [facility] RBC 4.61 4.20 - 5.40 Mil/ul [facility] NEUTROPHILS 72.7 42.2 - 75.2 % [facility] MCH 30.2 27.0 - 34.0 pg [facility] NEUTROPHIL ABSOLUTE 10.3(H) 2.0 - 8.0 K/ul [facility] HEMATOCRIT 40.8 36.0 - 46.0 % [facility] PLATELETS 219 140 - 440 K/ul [facility] EOSINOPHIL ABSOLUTE 0.1 0.0 - 0.7 K/ul [facility] EOSINOPHILS 0.4 0.0 - 7.0 % [facility] HEMOGLOBIN 13.9 12.0 - 16.0 g/dL [facility] MCHC 34.1 30.0 - 35.0 g/dL [facility] LYMPHOCYTE ABSOLUTE 3.0 1.2 - 4.0 K/ul [facility] LYMPHOCYTES 20.9(L) 24.0 - 44.0 % [facility] Blood specimen (specimen) 08/31/2008 5:45 PM CDT 08/31/2008 5:50 PM CDT us Brett Cosby MD HEMATOLOGY ORDERABLES Sandrine yolande Result INTERFACE SYSTEM Refer to clinic/hospital department [facility]# [id number] [address] [place] [address] * (ABNORMAL) BASIC METABOLIC PANEL (08/31/2008 5:45 PM CDT) GLUCOSE 143(H) 70 - 110 mg/dL [facility] CHLORIDE 111(H) 95 - 110 mEq/L [facility] SODIUM 140 136 - 145 mEq/L [facility] ANION GAP 10 9 - 20 mEq/L [facility] BUN 7 7 - 17 mg/dL [facility] CO2 22 22 - 32 mmol/l [facility] OSMOLALITY, CALCULATED 287 275 - 295 mOsm/Kg [facility] POTASSIUM 3.4(L) 3.5 - 5.0 mEq/L [facility] CREATININE 0.9 0.7 - 1.2 mg/dL [facility] CALCIUM 10.1 8.4 - 10.5 mg/dL [facility] Blood specimen (specimen) 08/31/2008 5:45 PM CDT 08/31/2008 5:50 PM CDT us Brett Cosby MD CHEMISTRY ORDERABLES Final Result INTERFACE SYSTEM Refer to clinic/hospital department [facility] CLIA# [id number] [facility] [place] [address] documented in this encounter Visit Diagnoses Diagnosis [...] disorder documented in this encounter Care Teams Hair Or Beauty Salon Manager Relationship Specialty Start Date End Date Les Jones DO [address] [place] [address] PCP - General Specialist 03/30/17 documented as of this encounter
--- OUTSIDE RECORDS SUMMARY | 2025-09-25 14:11 | XMS_ITS ---
Author Organization [facility] Address [address] Fraziern: Epic Prelude ADT RADHA GILLIS [address] Care Team Providers Care Frame Welder Cargo Utility Trailers Name Role Phone Karen Les S Primary Care Provider [phone] Active Problems Problem Noted Date Diagnosed Date [...]
--- OUTSIDE RECORDS SUMMARY | 2025-09-25 14:11 | XMS_ITS | Clinical Summary ---
Author Organization [facility] Address [address] 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 Gender Identity Not on file Sexual Orientation Not on file Last Filed Vital Signs Vital Sign Reading Time Taken Comments Blood Pressure 148/78 12/29/2017 11:48 AM TELEVISION REPAIR TEACHER Pulse 75 12/29/2017 11:48 AM TELEVISION REPAIR TEACHER Temperature 36.7 C (98.1 F) 12/29/2017 11:48 AM TELEVISION REPAIR TEACHER Respiratory Rate 18 12/29/2017 11:48 AM TELEVISION REPAIR TEACHER Oxygen Saturation 92% 12/29/2017 11:48 AM TELEVISION REPAIR TEACHER Inhaled Oxygen Concentration - - Weight 72.1 kg (159 lb) 12/28/2017 6:16 PM TELEVISION REPAIR TEACHER Height 154.9 cm (5' 1 ) 12/28/2017 6:16 PM TELEVISION REPAIR TEACHER Body Mass Index 30.04 12/28/2017 6:16 PM TELEVISION REPAIR TEACHER Plan of Treatment Health Maintenance Due Date [...] series) 01/30/2027 Medical Devices Implanted Type Area Splicer Operator Device Identifier Shelf Expiration Date Model / Serial / Lot [employer] 360 Soft Coil-04/01/2017 Implanted:Qty: 1 on 04/01/2017 by Zainab Molina MD Coil Brain [employer] 01/18/2020 / / [id number] [employer] 360 Ultra Coil-04/01/2017 Implanted:Qty: 1 on 04/01/2017 by Zainab Molina MD Coil Brain [employer] 12/20/2019 / / [id number] Microplex Hypersoft 3d Coil-04/01/2017 Implanted:Qty: 1 on 04/01/2017 by Zainab Molina MD Coil Brain [employer]CR[employer]ENTION 12/19/2020 / / [id number] Target 360 Susanne Coil-04/01/2017 Implanted:Qty: 1 on 04/01/2017 by Zainab Molina MD Coil Brain [employer] 11/19/2019 / / [id number] Target 360 Susanne Coil-04/01/2017 Implanted:Qty: 1 on 04/01/2017 by Zainab Molina MD Coil Brain [employer] 12/20/2019 / / [id number] Target 360 Susanne Coil-04/01/2017 Implanted:Qty: 1 on 04/01/2017 by Zainab Molina MD Coil Brain [employer] 10/19/2019 / / [id number] Target 360 Susanne Coil-04/01/2017 Implanted:Qty: 1 on 04/01/2017 by Zainab Molina MD Coil Brain [employer] 10/19/2019 / / [id number] 6fr Angioseal Evolution Other Right: Groin [employer]- VASCUTEK 08/19/2018 [id number] / / [id number] Description:6fr angioseal ev olution Angio-Seal Vip Closure Device [id number]/11/20 17 Implanted:Qty: 1 on 03/30/2017 by Zainab Molina MD Other Right: Groin [employer] 12/20/2017 [id number] / / [id number] Description:rt common femora l [employer] Stent- 7 Implanted:Qty: 1 on 04/01/2017 by Zainab Molina MD Stent Brain 12/17/2018 / / [id number] Insurance [address] [place] [address] MEDICARE PART A AND B Advance Directives For more information, please contact: [phone] * Full Code (Latest Code Status on File) Date Activated Date Inactivated Comments 12/28/2017 4:28 PM 12/28/2017 5:45 PM * Full Code Date Activated Date Inactivated Comments 03/30/2017 4:56 PM 04/02/2017 3:18 PM Care Teams Layer Off Relationship Specialty Start Date End Date Les Jones DO [address] [place] [address] PCP - General Specialist 03/30/17
--- OUTSIDE RECORDS SUMMARY | 2025-09-25 14:11 | XMS_ITS | Clinical Summary ---
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
--- OUTSIDE RECORDS SUMMARY | 2025-09-25 14:11 | XMS_ITS | Clinical Summary ---
Author Organization [facility] Address [address] 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 Gender Identity Not on file Sexual Orientation [...] Flex Sig/CT Colonography Q 5 years 01/30/1997 RSV VACCINE (60+ or ) (1 - Risk 50-74 years 1-dose series) 01/30/2002 ZOSTER VACCINE (1 of 2) 01/30/2002 PNEUMOCOCCAL VACCINE 50+ YEARS (2 of 2 - PCV) 09/07/20 09 09/07/2008 OSTEOPOROSIS SCREENING 01/30/2017 INFLUENZA VACCINE (#1) 2025 Medical Devices Implanted Type Area Garage Door Installer Device Identifier Shelf Expiration Date Model / Serial / Lot Target 360 Susanne Coil-04/01/2017 Implanted:Qty: 1 on 04/01/2017 by Zainab Molina MD Coil Brain [employer] 10/19/2019 / / [id number] Target 360 Susanne Coil-04/01/2017 Implanted:Qty: 1 on 04/01/2017 by Zainab Molina MD Coil Brain [employer] 11/19/2019 / / [id number] Target 360 Susanne Coil-04/01/2017 Implanted:Qty: 1 on 04/01/2017 by Zainab Molina MD Coil Brain [employer] 12/20/2019 / / [id number] Target 360 Susanne Coil-04/01/2017 Implanted:Qty: 1 on 04/01/2017 by Zainab Molina MD Coil Brain [employer] 10/19/2019 / / [id number] Target 360 Soft Coil-04/01/2017 Implanted:Qty: 1 on 04/01/2017 by Zainab Molina MD Coil Brain [employer] 01/18/2020 / / [id number] Target 360 Ultra Coil-04/01/2017 Implanted:Qty: 1 on 04/01/2017 by Zainab Molina MD Coil Brain [employer] 12/20/2019 / / [id number] Microplex Hypersoft 3d Coil-04/01/2017 Implanted:Qty: 1 on 04/01/2017 by Zaianb Molina MD Coil Brain [employer]- MICROVENTION 12/19/2020 / / [id number] 6fr Angioseal Evolution Other Right: Groin TERUM[employer]- VASCUTEK 08/19/2018 [id number] / / [id number] Description:6fr angioseal ev olution Angio-Seal Vip Closure Device [id number]/11/20 17 Implanted:Qty: 1 on 03/30/2017 by Zainab Molina MD Other Right: Groin [employer] 12/20/2017 [id number] / / [id number] Description:rt common femora l [employer] Stent- 7 Implanted:Qty: 1 on 04/01/2017 by Zainab Molina MD Stent Brain 12/17/2018 / / [id number] Insurance BCBS MEDICARE HMO Advance Directives For more information, please contact: [phone] * Full Code (Latest Code Status on File) Date Activated Date Inactivated Comments 03/15/2025 4:09 AM 03/20/2025 5:13 PM Care Teams Jordan Worker Relationship Specialty Start Date End Date Les Jones DO [address] [place] [address] PCP - General Specialist 03/30/17
--- NOTE | 2025-09-25 14:34 | ED_ITS ---
HPI - Abdominal Pain 2 General: Chief Complaint: Abdominal Pain Stated Complaint: abd pain - throat pain Time Seen by Provider: 09/25/25 14:33 History of Present Illness: 75-year-old female with a history of chr onic migraines, non-small cell lung cancer, lumbar stenosis, COPD, hyperlipidemia, hypertension, atrial fibrillation, chronic anticoagulation on Plavix and Eliquis, stroke and anxiety who presents to the emergency room with abdominal pain. She has been having throat pain for a long time. She says she has had multiple EGDs. Review of the notes shows that there was some concern for thickened esophagus but she says when they did the EGD they did not see anything. He says that water gives her throat pain. A little bit unclear on what is going on in her history Related Data Home Medications ?Medication ?Instructions ?Recorded ?Confirmed atenolol 50 mg tablet 50 mg PO DAILY@03/08/21 1 11/25/24 clopidogrel 75 mg tablet 75 mg PO DAILY@03/08/21 1 11/25/24 Held on 10/28/24. Instructions: Resume on 10/31/24. pantoprazole 40 mg tablet,delayed 40 mg PO BID 1 09/25/25 release (Protonix) methimazole 10 mg tablet 10 mg PO DAILY 08/26/2505/14 sucralfate 1 gram tablet 1 g PO QID 08/26/25 09/25/25 Previous Rx's ?Medication ?Instructions ?Recorded sumatriptan succinate 100 mg tablet See Rx Instruction s .Route 04/10/23 .COMPLEX #9 tabs fluticasone fur. 100 mcg-umeclid 1 inh inhalation Q24H #60 ea 07/11/24 62.5 mcg-vilant 25 mcg inhalat.powder (Trelegy Ellipta) Allergies Allergy/AdvReac Type Severity Reaction Status Date / Time No Known Allergies Allergy Verified 08/26/25 13:46 Review of Systems 2 Narrative: Constitutional symptoms: Negative except as documented in HPI. Skin symptoms: Negative except as documented in HPI. Eye symptoms: Negative except as documented in HPI. ENMT symptoms: Negative except as documented in HPI. Respiratory symptoms: Negative except as documented in HPI. Cardiovascular symptoms: Negative except as documented in HPI. Gastrointestinal symptoms: Negative except as documented in HPI. Genitourinary symptoms: Negative except as documented in HPI. Musculoskeletal symptoms: Negative except as documented in HPI. Neurologic symptoms: Negative except as documented in HPI. Psychiatric symptoms: Negative except as documented in HPI. Endocrine symptoms: Negative except as documented in HPI. [facility] ED 2 PFS: Medical History (Updated 09/25/25 @ 16:38 by Silke Chavez MD) Chronic migraine without aura, intractable, with status migrainosus Non-small cell lung cancer Chronic migraine Lumbar spinal stenosis Degenerative joint disease of spine COPD (chronic obstructive pulmonary disease) Hyperthyroidism Continue on home methimazole Basilar artery aneurysm Dyslipidemia Hypertension Anxiety disorder Insomnia Plantar fasciitis Statin intolerance Gastritis Surgical History History of esophagogastroduodenoscopy (EGD) 2019 -gastritis Status post colonoscopy 2018: Normal repeat in 10 years S/P coil embolization of cerebral aneurysm 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, stent subsequently removed H/O section H/O splenectomy 2007 Family History Mother Diabetes Father Heart disease Grandmother Stroke Other Suicide Denies family history of CAD (coronary artery disease) Clotting disorder Dementia Hyperlipidemia Psychiatric illness Chronic kidney disease (CKD) Anesthesia complication Bleeding disorder Lung disease Cancer Hypertension Social History Smoking and tobacco/nicotine status: former use of tobacco/nicotine Quit status (tobacco/nicotine): has quit using Year quit tobacco: 2017 [id number] Second hand smoke exposure: No Alcohol intake: former Substance/Drug Use: current Substance/Drug use frequency: few times a week Lives independently: Yes Household members: spouse Marital status: service: No Current occupational status: retired Pets and animals: Yes Do you think of yourself as: Straight/Heterosexual Current gender identity: Female Physical Exam 2 Narrative: EXAM NARRATIVE: General: Alert, no acute distress. Skin: Warm, dry. Head: Normocephalic, atraumatic. Neck: Supple, trachea midline. Eye: Extraocular movements are intact. Ears, nose, mouth and throat: mucosa moist. Cardiovascular: Regular, Normal peripheral perfusion. Respiratory: Lungs are clear to auscultation, respirations are non-labored, breath sounds are equal, Symmetrical chest wall expansion. Gastrointestinal: Soft, epigastric pain, Non distended Musculoskeletal: Normal ROM, no deformity. Neurological: Alert and oriented, No focal neurological deficit observed. Psychiatric: Cooperative, appropriate mood & affect. Course 2 Vital Signs: Vital signs: Vital Signs Temperature 98.6 F 09/25/25 14:07 Pulse Rate 111 H 09/25/25 14:07 Respiratory Rate 20 H 09/25/25 14:07 Blood Pressure 108/75 09/25/25 14:07 Pulse Oximetry 93 09/25/25 14:07 Oxygen Delivery Me thod Room Air 09/25/25 14:07 MDM - Abdominal Pain Medical Decision Making Medical decision making: Patient's reason for coming to the emergency room Social determinants: Patient is retired. She has some difficulty communicating secondary to an old stroke. I reviewed the patient's medical record. 75-year-old female with a history of chronic migraines, non-small cell lung cancer, lumbar stenosis, COPD, hyperlipidemia, hypertension, atrial fibrillation, chronic anticoagulation on Plavix and Eliquis, stroke and anxiety I reviewed the patient's current home meds Alternate historians: No alternative history's. Differential diagnosis including but not limited to and based on the above HPI, review of systems and physical exam: In this patient with epigastric pain differential would include cholelithiasis or cholecystitis. Hepatitis. Diverticulitis. Constipation. UTI. colitis. small bowel obstruction. Crohn's flare. pancreatitis. gastritis. peptic ulcer. also concern for acute cardiac event. Orders placed to evaluate differential diagnosis based on the above differential, HPI and physical exam Lab Review: Laboratory results were reviewed and interpreted by myself the emergency room physician. Leukocytosis with a white count of 15,000. Acute renal failure with a BUN and creatinine of 40 and 2. Urinary tract infection is evident as well. CT of the abdomen pelvis: No acute findings. This was reviewed and interpreted by myself the emergency room physician. I also reviewed the radiology report. Assessment of risk: Level of risk: Moderate risk. Multiple comorbidities. Hospitalization considerations: Patient is being hospitalized for renal failure and a urinary tract infection with possible sepsis. I also acute renal failure Reexamination: Patient remained stable. No increased work of breathing. No altered mental status. No focal motor deficits. She has been a little bit tachycardic. Blood pressure has been little soft as well. Consultation: I spoke with Dr. Veliz who is on-call for the hospital service who agrees to admission. Assessment and plan: Leukocytosis Urinary tract infection Acute on chronic renal insufficiency Sepsis -2.5 L normal saline bolus. Fluid volumes based on ideal body weight. -Broad-spectrum antibiotics were administered. Cefepime given. -Sepsis quality measures. -Lactic acid with a reflex was ordered. -Blood cultures were ordered. ?I reevaluated the patient's volume status after sepsis fluids were given. -I discussed the patient with the hospitalist on-call who is admitting the patient. - Discussed findings and plan with patient. Answered any questions. - All laboratory values were reviewed and interpreted personally by myself, the ER physician - All imaging was reviewed and interpreted personally by myself, the ER physician. - Evaluation and treatment of this problem were appropriate in the emergency setting Critical Care: -I spent a total of 40 minutes of critical care time managing the patient, independent of any other practitioner. -The time involved in the performance of separately reportable procedures was not counted towards critical care time. Lab Data 09/25/25 14:49 09/25/25 14:49 Labs/Radiology: Radiology Impressions Abdomen/Pelvis CT 09/25/25 15:28 IMPRESSION: No acute finding. COMMENTS: Consistent with the [place] [employer]'s Incidental Findings Committee white paper (J Am Mika Radiol 2018): Any incidental renal lesion less than 1 cm or classified as too small to characterize, or any incidental cystic renal lesion characterized as simple-appearing, is likely benign. No follow-up imaging is recommended for these lesions per consensus recommendations based on imaging criteria. Laboratory Results WBC 15.52 10^3/uL (3.29-11.43) H 09/25/25 14:49 RBC 5.17 10^6/uL (3.85-5.65) 09/25/25 14:49 Hgb 14.00 g/dL (11.27-16.99) 09/25/25 14:49 Hct 41.9 % (36-47) 09/25/25 14:49 MCV 81.0 fl (85-98) L 09/25/25 14:49 MCH 27.1 pg (27-33) 09/25/25 14:49 MCHC 33.4 g/dL (30-55) 09/25/25 14:49 RDW 18.6 % (12.1-15.1) H 09/25/25 14:49 Plt Count 437 10^3/cmm (157-399) H 09/25/25 14:49 MPV 9.1 fL (7.4-10.4) 09/25/25 14:49 Neut % (Auto) 72.4 % 09/25/25 14:49 Lymph % (Auto) 21.4 % 09/25/25 14:49 [place] % (Auto) 5.4 % 09/25/25 14:49 Eos % (Auto) 0.0 % 09/25/25 14:49 Baso % (Auto) 0.3 % 09/25/25 14:49 Neut # (Auto) 11.24 10^3/uL (1.8-7.7) H 09/25/25 14:49 Lymph # (Auto) 3.3 10^3/uL (0.8-4.8) 09/25/25 14:49 [place] # (Auto) 0.8 10^3/uL (0.2-0.9) 09/25/25 14:49 Eos # (Auto) 0.0 10^3/uL (0.0-0.8) 09/25/25 14:49 Baso # (Auto) 0.0 10^3/uL (0.0-0.1) 09/25/25 14:49 Nucleated RBC % (auto) 0 % 09/25/25 14:49 Nucleated RBCs # 0.0 /100WBC 09/25/25 14:49 Sodium 134 mmol/L (136-145) L 09/25/25 14:49 Potassium 3.2 mmol/L (3.5-5.1) L 09/25/25 14:49 Chloride 91 mmol/L (98-107) L 09/25/25 14:49 Carbon Dioxide 25 mmol/L (22-29) 09/25/25 14:49 Anion Gap 21.2 (5-19) H 09/25/25 14:49 BUN 40 mg/dL (8-23) H 09/25/25 14:49 Creatinine 2.0 mg/dL (0.5-0.9) H 09/25/25 14:49 GFR Calculation Not Reportable 09/25/25 14:49 Glucose 119 mg/dL (65-115) H 09/25/25 14:49 Calculated Osmolality 289 mOsm/kg (285-295) 09/25/25 14:49 Lactic Acid 2.4 mmol/L (0.5-2.2) H 09/25/25 14:49 Calcium 9.8 mg/dL (8.5-10.5) 09/25/25 14:49 Total Bilirubin 0.7 mg/dL (0.15-1.2) 09/25/25 14:49 AST 15 U/L (0-32) 09/25/25 14:49 ALT 7 U/L (0-33) 09/25/25 14:49 Alkaline Phosphatase 88 U/L (35-105) 09/25/25 14:49 C-Reactive Protein 3.0 mg/L (0.0-4.9) 09/25/25 14:49 Total Protein 7.6 g/dL (6.6-8.7) 09/25/25 14:49 Albumin 4.4 g/dL (3.5-5.2) 09/25/25 14:49 Globulin 3.2 g/dL (1.3-4.6) 09/25/25 14:49 Lipase 29 U/L (13-60) 09/25/25 14:49 Urine Color Dark yellow (Yellow) A 09/25/25 15:03 Urine Appearance Cloudy (CLEAR) A 09/25/25 15:03 Urine pH 5.0 (5-7) 09/25/25 15:03 Ur Specific [place] 1.022 (1.005-1.030) 09/25/25 15:03 Urine Protein 2+ (Negative) A 09/25/25 15:03 Urine Glucose (UA) Negative (Normal) 09/25/25 15:03 Urine Ketones Trace (Negative) 09/25/25 15:03 Urine Blood Negative (Negative) 09/25/25 15:03 Urine Nitrate Negative (Negative) 09/25/25 15:03 Urine Bilirubin 1+ (Negative) H 09/25/25 15:03 Urine Urobilinogen 1.0 mg/dL (Negative) 09/25/25 15:03 Ur Leukocyte Esterase 2+ (Negative) A 09/25/25 15:03 Urine RBC 0-2 /hpf (0-2) 09/25/25 15:03 Urine WBC 21-50 /hpf (0-5) H 09/25/25 15:03 Ur Squamous Epith Cells 21-50 /hpf (0-5) H 09/25/25 15:03 Amorphous Sediment Not Reportable 09/25/25 15:03 Urine Bacteria 4+ /hpf (NONE) H 09/25/25 15:03 Hyaline Casts 86.47 /lpf 09/25/25 15:03 Urine Opiates Screen Negative ng/mL (Negative) 09/25/25 15:03 Ur Barbiturates Screen Negative ng/mL (Negative) 09/25/25 15:03 Ur Phencyclidine Scrn Negative ng/mL (Negative) 09/25/25 15:03 Ur Amphetamines Screen Negative ng/mL (Negative) 09/25/25 15:03 U Benzodiazepines Scrn Negative ng/mL (Negative) 09/25/25 15:03 Urine Cocaine Screen Negative ng/mL (Negative) 09/25/25 15:03 U Marijuana (THC) Screen Positive ng/mL (Negative) H 09/25/25 15:03 All radiology interpretation(s) finalized by discharge Discharge Plan Discharge Patient Disposition: Admitted As Inpatient Clinical Impression: Sepsis, Acute UTI, Acute renal failure Condition: Stable Coding Level of Care Code ED Program Counselor for Judy Mcgrath
[2025-09-25 14:58] LABS: Hematocrit 41.9 % (36-47); Hemoglobin 14.00 g/dL (11.27-16.99); Mean Corpuscular HGB Conc 33.4 g/dL (30-55); Mean Corpuscular Hemoglobin 27.1 pg (27-33); Mean Corpuscular Volume 81.0 fl (85-98); Nucleated Red Blood Cells % 0 %; Platelet Count 437 10^3/cmm (157-399); Red Blood Count 5.17 10^6/uL (3.85-5.65); White Blood Count 15.52 10^3/uL (3.29-11.43)
[2025-09-25 15:10] LABS: Glucose Urine UA Negative (Normal); Nitrate Urine Negative (Negative); Specific Gravity, Urine 1.022 (1.005-1.030)
[2025-09-25 15:18] LABS: Alanine Aminotransferase 7 U/L (0-33); Albumin Level 4.4 g/dL (3.5-5.2); Alkaline Phosphatase 88 U/L (35-105); Anion Gap 21.2 (5-19); Aspartate Amino Transferase 15 U/L (0-32); Blood Urea Nitrogen 40 mg/dL (8-23); Calcium 9.8 mg/dL (8.5-10.5); Carbon Dioxide 25 mmol/L (22-29); Chloride 91 mmol/L (98-107); Creatinine Clr Calc Pharmacy 21.3165; Globulin 3.2 g/dL (1.3-4.6); Glucose 119 mg/dL (65-115); Lipase 29 U/L (13-60); Osmolality Calculated 289 mOsm/kg (285-295); Potassium 3.2 mmol/L (3.5-5.1); Sodium 134 mmol/L (136-145); Total Protein 7.6 g/dL (6.6-8.7)
[2025-09-25 15:19] LABS: PCP Screen Urine Negative (Negative)
[2025-09-25 15:19] LABS: Lactic Sepsis W/Reflex 2.4 mmol/L (0.5-2.2)
--- NOTE | 2025-09-25 15:28 | CTR_ITS ---
PROCEDURE INFORMATION: Exam: CT Abdomen And Pelvis Without Contrast Exam date and time: 09/25/2025 3:39 PM Age: 75 years old Clinical indication: PT complains of generalized abdominal pain for the last week. PT states she has also had nausea and vomiting fo rthe last 4 days. TECHNIQUE: Imaging protocol: Computed tomography of the abdomen and pelvis without contrast. Radiation optimization: All CT scans at this facility use at least one of these dose optimization techniques: automated exposure control; mA and/or kV adjustment per patient size (includes targeted exams where dose is matched to clinical indication); or iterative reconstruction. COMPARISON: CT abdomen pelvis w con* [id number] 03/24/2025 9:24 PM RADIATION DOSE METRICS: Total DLP (mGy-cm): 356.67 FINDINGS: Limitations: Evaluation of solid organs, viscera, and vasculature is limited without intravenous contrast. Lungs: Lung bases are clear. Liver: Normal. Gallbladder and biliary ducts: No radiodense gallstones. No biliary ductal dilation. Pancreas: Normal. Spleen: Trace splenic tissue in the left upper quadrant. Adrenal glands: Normal. Kidneys and ureters: No hydronephrosis. No urolithiasis. Bilateral subcentimeter presumed cysts and right simple cyst. Stomach and bowel: No dilated or inflamed bowel. Colonic diverticulosis without diverticulitis. Unremarkable colonic stool volume. Appendix: Normal. Intraperitoneal space: No free air. No free fluid. Vasculature: Severe atherosclerotic calcification of the normal-caliber abdominal aorta. Lymph nodes: Mildly enlarged 1.0 x 1.3 cm peripancreatic lymph node (series 3, image 16), nonspecific. Otherwise no lymphadenopathy. Urinary bladder: Unremarkable decompressed urinary bladder. Reproductive: Unremarkable uterus. No adnexal mass. Bones/joints: No acute osseous abnormality. Multilevel chronic degenerative changes of the spine. Soft tissues: Fat-containing left paraumbilical and supraumbilical hernias. No acute finding. CT/CT abdomen pelvis wo con [id number] IMPRESSION: No acute finding. COMMENTS: Consistent with the [place] [employer]'s Incidental Findings Committee white paper (J Am Mika Radiol 2018): Any incidental renal lesion less than 1 cm or classified as too small to characterize, or any incidental cystic renal lesion characterized as simple-appearing, is likely benign. No follow-up imaging is recommended for these lesions per consensus recommendations based on imaging criteria.
[2025-09-25 15:43] LABS: UA Slide Review UA Slide Review Perf
[2025-09-25] MEDS: cefepime 2,000 mg SDV 2000 MG IVP (16:04)
--- NOTE | 2025-09-25 16:33 | PC.PHAR ---
Pt has been off her medications since Monday due to upcoming surgery.
[2025-09-25] MEDS: morphine 4 mg/mL SDV 1 mL IVP (16:47)
[2025-09-25] MEDS: ondansetron 2 mg/ML SDV 2 mL 4 MG IVP (16:47)
--- NOTE | 2025-09-25 16:51 | CTR_ITS ---
PROCEDURE INFORMATION: Exam: CT Neck Without Contrast Exam date and time: 09/25/2025 5:31 PM Age: 75 years old Clinical indication: Other: Difficulty swallowing, h/o laryngeal mass; PT complains of generalized abdominal pain for the last week. PT states she has also had nausea and vomiting fo rthe last 4 days. PT states her throat also hurts. PT states she is supposed to have a procedure done on her throat next week. TECHNIQUE: Imaging protocol: Computed tomography of the neck without contrast. Radiation optimization: All CT scans at this facility use at least one of these dose optimization techniques: automated exposure control; mA and/or kV adjustment per patient size (includes targeted exams where dose is matched to clinical indication); or iterative reconstruction. COMPARISON: CT neck w con* [id number] 08/26/2025 3:28 PM RADIATION DOSE METRICS: Total DLP (mGy-cm): 155.6 FINDINGS: Tubes, catheters and devices: Tip of basilar embolization coils. Brain: Remote infarct of the left temporoparietal lobe. Salivary glands: Unremarkable. Glands are normal in size. Pharynx: Diffuse mucosal thickening of the nasopharynx, effacing the nasopharyngeal airway. Redemonstrated 1.4 x 1.0 x 1.6 cm well-defined soft tissue density mass in the left pre epiglottic region, stable compared to 08/26/2025, with stable mild effacement of the supraglottic airway. Stable diffuse mild thickening of the vocal cords. Larynx: Epiglottis is normal. Thyroid: Unremarkable. Trachea: Visualized trachea is unremarkable. Lungs: Please see separate CT chest report from the same date. Lymph nodes: No lymphadenopathy. Bones/joints: No acute finding. Soft tissues: Unremarkable. No significant soft tissue swelling. CT/CT neck wo con [id number] IMPRESSION: 1. 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 2. Stable diffuse mucosal thickening of the nasopharynx and vocal cords, which may be inflammatory or neoplastic in etiology.
--- NOTE | 2025-09-25 16:51 | CTR_ITS ---
PROCEDURE INFORMATION: Exam: CT Chest Without Contrast; Diagnostic Exam date and time: 09/25/2025 5:31 PM Age: 75 years old Clinical indication: Other: Difficulty swallowing; PT complains of generalized abdominal pain for the last week. PT states she has also had nausea and vomiting fo rthe last 4 days. PT states her throat also hurts. PT states she is supposed to have a procedure done on her throat next week. TECHNIQUE: Imaging protocol: Diagnostic computed tomography of the chest without contrast. Radiation optimization: All CT scans at this facility use at least one of these dose optimization techniques: automated exposure control; mA and/or kV adjustment per patient size (includes targeted exams where dose is matched to clinical indication); or iterative reconstruction. COMPARISON: 1. CT angio chest w abd pel w con 03/14/2025 5:[address] [place] [id number] 09/19/2024 9:[address] angio chest PE protcl [id number] 09/05/2024 11:31 AM RADIATION DOSE METRICS: Total DLP (mGy-cm): 417.9 FINDINGS: Limitations: Study somewhat limited due to streak artifact created by the patient being scanned with the arms at the sides. Lungs: There are extensive changes of pulmonary emphysema stable compared with previous studies. There are posttreatment changes medial apical left upper lobe not significant change peripheral 04/08/2025 the apical atelectasis is slightly greater compared with 09/19/2024. No recurrent mass is identified. Pleural spaces: Unremarkable. No pneumothorax. No pleural effusion. Heart: Heart is within normal limits of size. There is trace pericardial effusion. Coronary arteries: There is mild atherosclerotic calcification of the coronary arteries. Esophagus: Visualized esophagus appears grossly normal Lymph nodes: There is no evidence of lymphadenopathy. Vasculature: Unremarkable. No aortic aneurysm. Bones/joints: The thoracic spine demonstrates moderate degenerative changes at multiple levels. There is no evidence of acute fracture. There is very mild thoracic scoliosis. Soft tissues: Unremarkable. CT/CT chest wo con [id number] IMPRESSION: Pulmonary emphysema and stable posttreatment changes. No acute finding. COMMENTS: The presence of pulmonary emphysema on CT is an independent risk factor for lung cancer. In the absence of a history or active diagnosis of lung cancer, it is recommended that this patient with emphysema be evaluated for enrollment in a low dose CT lung cancer screening program.
--- NOTE | 2025-09-25 16:51 | PM.HP ---
Providers/Chief Complaint Primary Care Provider: Maria Gomez APN Chief Complaint: abd pain - throat pain History of Present Illness May Cummings is a 75 year old female with past medical history of COPD, non-small cell lung cancer posttreatment, hypothyroidism, laryngeal mass who presented to the ER today because of abdominal pain, nausea worsening for last 4 to 5 days though symptoms persisting for last 1 month along with burning sensation in throat and food pipe with swallowing. Patient states for now she is not even able to maintain oral intake with fluids as she continues to throw up. Patient was started on IV fluids for acute kidney injury and IV cefepime for possible UTI. On examination patient having acute anxiety and states she feels as if there is something stuck in her throat and she is not able to breathe. Tachypneic tachycardic with respiratory rate of more than 35, saturating 92% on 2 L with blood pressure of [address] neck was requested. Patient was given nebulization treatment, ABG was done and Solu-Medrol 125 mg was given. Review of Systems General: Reports: 10 or more systems reviewed and unremarkable except in HPI and below Const: Denies: fever(s), chills, body aches, change in appetite, change in weight, malaise, night sweats, diaphoresis, change in sleep pattern, daytime sleepiness or snoring Eyes: Denies: change in vision, blurry vision, photophobia, eye discomfort or eye discharge ENMT: Denies: throat pain, enlarged tonsils, hoarseness, mouth pain, oral sores, dry mouth, tinnitus, nasal congestion or post nasal drip Card: Denies: chest pain, palpitations, irregular heart rhythm, edema, swelling of feet/ankles, lightheadedness, syncope, pre-syncope, dyspnea on exertion, orthopnea, leg pain with exertion or acrocyanosis Resp: Denies: dyspnea, productive cough, non-productive cough, wheezing, stridor, pain on inspiration, change in phlegm color, hemoptysis or chest congestion GI: Denies: abdominal pain, nausea, vomiting, hematemesis, coffee ground emesis, dysphagia, heartburn, diarrhea, constipation, bloating, GI cramping, change in bowel habits, pain on defecation, hematochezia or melena : Denies: flank pain, dysuria, urinary frequency, urinary urgency, urinary hesitancy, nocturia or hematuria Musc: Denies: neck pain, back pain, extremity pain, joint pain, joint swelling, joint redness, joint stiffness or limited range of motion Neuro: Denies: headache(s), numbness in extremities, weakness in extremities, sensory changes, lack of coordination, difficulty walking, frequent falls, dizziness, vertigo, confusion, Slurred speech present, difficulty communicating thoughts or seizure-like activity Psych: Denies: anxiety, depression, mood swings, panic attacks, hopelessness or irritability Endo: Denies: polyuria, polydipsia, tired all the time, cold intolerance, excessive sweating, flushing or heat intolerance Ike/Lymph: Denies: easy bruising or easy bleeding All/Imm: Denies: tongue swelling, facial swelling or acute wheezing Medications/Allergies Home Medications ?Medication ?Instructions ?Recorded ?Confirmed ?Last Taken ?Type atenolol 50 mg tablet 50 mg PO DAILY@03/08/21 09/25/25 09/22/25 History clopidogrel 75 mg tablet 75 mg PO DAILY@03/08/21 09/25/25 09/22/25 History Held on 10/28/24. Instructions: Resume on 10/31/24. pantoprazole 40 mg tablet,delayed 40 mg PO BID 03/08/21 09/25/25 09/22/25 History release (Protonix) sumatriptan succinate 100 mg tablet See Rx Instructions .Route 04/10/23 09/25/25 10/25/24 Rx .COMPLEX #9 tabs fluticasone fur. 100 mcg-umeclid 1 inh inhalation Q24H #60 ea 07/11/24 09/25/25 09/22/25 Rx 62.5 mcg-vilant 25 mcg inhalat.powder (Trelegy Ellipta) methimazole 10 mg tablet 10 mg PO DAILY 08/26/25 09/25/25 Unknown History sucralfate 1 gram tablet 1 g PO QID 08/26/25 09/25/25 09/22/25 History Allergies Allergy/AdvReac Type Severity Reaction Status Date / Time No Known Allergies Allergy Verified 08/26/25 13:46 PFSH Acute PFSH: Medical History (Updated 09/25/25 @ 18:35 by Reji Veliz MD) Small bowel obstruction Spinal stenosis of lumbar region with neurogenic claudication Left acute arterial ischemic stroke, MCA (middle cerebral artery) Malignant neoplasm of upper lobe, left bronchus or lung Stage IB - T2a, N0, M0 Port-A-Cath in place Chronic migraine without aura, intractable, with status migrainosus Non-small cell lung cancer Chronic migraine Lumbar spinal stenosis Degenerative joint disease of spine COPD (chronic obstructive pulmonary disease) Hyperthyroidism Continue on home methimazole Basilar artery aneurysm Dyslipidemia Hypertension Anxiety disorder Insomnia Plantar fasciitis Statin intolerance Gastritis Surgical History History of esophagogastroduodenoscopy (EGD) 2019 -gastritis Status post colonoscopy 2018: Normal repeat in 10 years S/P coil embolization of cerebral aneurysm 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 2016, stent subsequently removed H/O section H/O splenectomy 2007 Family History Mother Diabetes Father Heart disease Grandmother Stroke Other Suicide Denies family history of CAD (coronary artery disease) Clotting disorder Dementia Hyperlipidemia Psychiatric illness Chronic kidney disease (CKD) Anesthesia complication Bleeding disorder Lung disease Cancer Hypertension Social History Smoking and tobacco/nicotine status: former use of tobacco/nicotine Quit status (tobacco/nicotine): has quit using Year quit tobacco: 2017 [id number] Second hand smoke exposure: No Alcohol intake: former Substance/Drug Use: current Substance/Drug use frequency: few times a week Lives independently: Yes Household members: spouse Marital status: service: No Current occupational status: retired Pets and animals: Yes Do you think of yourself as: Straight/Heterosexual Current gender identity: Female Vitals/I&O/Wt Last Vital Signs Temp 98.6 F 09/25/25 14:07 Pulse 111 H 09/25/25 14:07 Resp 20 H 09/25/25 14:07 BP 108/75 09/25/25 14:07 Pulse Ox 93 09/25/25 14:07 O2 Del Method Room Air 09/25/25 14:07 Weight last 48 hrs Weight 63.049 kg Physical Exam Narrative: General: Acute distress because of difficulty in breathing, foreign body sensation in throat, AO x 3, dehydrated HEENT: PERRLA, pupils bilaterally equal and reactive Chest: Normal vesicular breath sounds, bilateral rhonchi, mild crackles bilaterally in lower zone, equal good air entry bilaterally CVS: S1-S2 regular, no murmurs, tachycardia, no gallops, no rubs Abdomen: Soft, nontender, no organomegaly, bowel sounds present Neuro: No focal deficits, no facial deformity, AO x3, power 5/5 in all limbs Data 09/25/25 14:49 09/25/25 14:49 A&P Assessment and plan 1. Difficulty breathin. Laryngeal mass: 3. Intractable vomitin. Hyponatremia: 5. Hypokalemia: 6. CALVIN (acute kidney injury): 7. COPD (chronic obstructive pulmonary disease): 8. Elevated lactic acid level: 9. Gastritis: 10. Hyperthyroidism: Plan: 75-year-old with history of laryngeal mass, intractable vomiting, migraine, stroke, COPD, lung cancer posttreatment presents to the ER today because of nausea vomiting, abdominal pain and epigastric burning along with difficulty in breathing along with foreign body sensation in throat. Does have leukocytosis, hyponatremia, hypokalemia acute kidney injury with elevated BUN with concerns for dehydration is also has thrombocytosis. Intractable vomiting/gastritis: Start on IV Protonix 40 twice daily. Clear liquid diet. Zofran as needed. Foreign body sensation/difficulty in breathing: Most likely in setting of laryngeal mass. CT neck was obtained which shows left preepiglottic mass with mild effacement of supraglottic airway with diffuse mucosal thickening of nasopharynx and vocal cord. Unfortunately no ENT available. Oxygen supplementation keeping saturation 90%. Start on Solu-Medrol 125 mg one-time followed by 40 mg Q6 hourly. Acute kidney injury: Most likely in setting of poor oral intake. Associated with hyponatremia and hypokalemia. IV fluid with NS at 100 cc/h. Check urine lites, urine creatinine. Leukocytosis: Most likely setting of dehydration. Cannot rule out pneumonia. UTI less likely. Patient does not have any symptoms. Appreciate urinalysis. Follow empirically start patient on IV Zosyn. Check MRSA swab. Sputum culture. CT chest for further evaluation. Pneumonia less for now less likely. Hypothyroidism: Check TSH and free T4. Continue with home dose of methimazole. Hypertension: Goal blood pressure less than 140/90 [place] will continue with home dose of atenolol. Anxiety: Most likely in setting of difficulty in breathing and foreign body sensation. Xanax 0.5 mg 3 times daily as needed. Given patient having foreign body sensation, difficulty in breathing along with preepiglottic mass effacing supraglottic airway along with diffuse mucosal thickening of vocal cord and nasopharynx patient would need further evaluation with ENT. Unfortunately no ENT available currently. Will request ER to transfer patient to a tertiary center where ENT is available for immediate workup for possible laryngoscopy. Care discussed in detail with ER physician. Full code Clear liquid diet. PDMP PDMP Reviewed: Not Reviewed Attestations Medical Necessity Statement*: Patient is to be transferred to tertiary center where ENT is available for preepiglottic mass with effacement of supraglottic airway along with mucosal thickening of nasopharynx leading to foreign body sensation and difficulty in breathing. Critical Care Time: The high probability of a clinically significant, sudden or life threatening deterioration of the patient's [ENT, renal] system(s) required my full and direct attention, intervention and personal management. The critical care time is as shown. This time is in addition to time spent performing any reported procedures but includes the following: [x] Data and vital sign review and interpretation [x] Patient assessment, examination and intervention [x] Documentation [x] Medication orders and management Critical Care Time (min): 65 Coding Level of Care Code Critical Care >/= 30 minutes Critical care time (in minutes): 65 The high probability of a clinically significant, sudden or life threatening deterioration, as referenced in this documentation, required my full and direct attention, intervention and personal management. The critical care time shown is in addition to time spent performing any reported separately billable procedures and includes the following: [x] Data and vital sign review and interpretation [x] Patient assessment, examination and intervention [x] Medication orders and management [x] Patient/Family updates as able [x] Care Coordination and Documentation. Diagnoses Difficulty breathing R06.89 Laryngeal mass J38.7 Intractable vomiting R11.10 Hyponatremia E87.1 Hypokalemia E87.6 CALVIN (acute kidney injury) N17.9 COPD (chronic obstructive pulmonary disease) J44.9 Elevated lactic acid level R79.89 Gastritis K29.70 Hyperthyroidism E05.90
--- NOTE | 2025-09-25 16:55 | PC.NURSE ---
Addendum entered by Tika Flores RN 09/25/25 16:56: event time @1645 Original Note: pt having labored breathing, gasping for air. states she feels like she cannot get a breath in. oxygen sat >90%. Dr. Chavez notified and at bedside.
--- NOTE | 2025-09-25 17:27 | PC.NURSE ---
IV maintenance fluids delayed d/t patient receiving 2.5L bolus at this time
[2025-09-25 17:32] LABS: Procalcitonin 0.19 ng/mL (0-0.5)
[2025-09-25] MEDS: methylPREDNISolone sod succ 125 mg/2 mL INJ IVP (17:48)
[2025-09-25 17:51] LABS: ABG PCO2 36.1 mmHg (35-45); ABG PH Result 7.44 (7.35-7.45); Alveolar-Arterial Oxygen Gradi 1.8 mmHg (5-10); Arterial Blood Gas Hematocrit 38.8 % (37-47); Blood Gas Allen Test Pos; Blood Gas LPM 2.0 %; Blood Gas Operator Identificat WALCI; Blood Gas Sample Site Radial, right; Blood Gas Sample Type Arterial; Carboxyhemoglobin 0.8 %THgb (0.4-20.1); Glucose Level-ABG 89.0 mg/dL (70-115); HCO3 ABG 24.5 mmol/L (22-26); Ionized Calcium Level - ABG 1.0 mmol/L (1.1-1.4); Methemoglobin 1.3 % (0.4-1.5); Oxygen Saturation ABG 96.9; PO2 ABG 89.5 mmHg (80.0-100.0); Potassium Level - ABG 3.0 mmol/L (3.5-5.0); Sodium Level - ABG 139.0 mmol/L (131-143)
[2025-09-25 18:34] LABS: Reflex Lactate Order REFLEX LACTIC ORDERD
[2025-09-25 19:01] LABS: Potassium, Radom Urine 83 mmol/L; Urine Random Chloride 21 mmol/L; Urine Random Sodium 24 mmol/L
[2025-09-25 19:21] LABS: Lactic Acid level (Lactate) 1.0 mmol/L (0.5-2.2)
== END 2025-09-25 21:29 | disposition admitted as inpatient to this hospital (09) ==
LOC: ER 16:13 → ER IP 18:20 → ER 18:48
PROVIDERS: Student in an Organized Health Care Education/Training Program; Emergency Provider Emergency Medicine; PCP Nurse Practitioner Family
DX: A41.9 Sepsis, unspecified organism (principal); N39.0 Urinary tract infection, site not specified; N17.9 Acute kidney failure, unspecified; Z87.891 Personal history of nicotine dependence; J44.9 Chronic obstructive pulmonary disease, unspecified; E78.5 Hyperlipidemia, unspecified; I10 Essential (primary) hypertension; Z85.118 Personal history of other malignant neoplasm of bronchus and lung
CPT/HCPCS: 36415; 36600; 70490; 71250; 74176; 80051; 80053; 80306; 81001; 82330; 82436; 82805; 83605; 83690; 84133; 84145; 84300; 85025; 86140; 86403; 87040; 87086; 94640; 96361; 96374; 96375; 99285; J0692; J2270; J2405; J2919; J7030; J7040; J9999